=== PATIENT | male | born 1980 | race Caucasian/White ===

== ENCOUNTER 2021-09-26 10:16 | Outpatient (REF) | payer OTHER, SELFPAY ==
--- NOTE | ~2021-09-26 | XR_ITS ---
EXAMINATION: XR CHEST CLINICAL INFORMATION: Dyspnea COMPARISON: Previous chest x-rays most recent April 2020 TECHNIQUE: 2 views of the chest were obtained. FINDINGS: No significant abnormality is noted involving the heart, lungs, mediastinum, bony thorax or soft tissues. XR/XR chest 2V IMPRESSION: Unremarkable examination.
== END 2021-09-26 10:17 | disposition home or self-care (01) ==
LOC: HO.XRAY 10:16
PROVIDERS: Absent Provider Internal Medicine; PCP Internal Medicine; Visit Provider Emergency Medicine
DX: R06.00 Dyspnea, unspecified (principal)
CPT/HCPCS: 71046

== ENCOUNTER 2021-09-29 22:01 | Emergency (ER) | payer OTHER, SELFPAY ==
[2021-09-29 22:36] VITALS: BP 125/74; PULSE 66; RESP 16; TEMP 36.6; O2SAT 97; BMI 27.4
[2021-09-29 23:23] LABS: COVID-19 Test Negative (Negative)
--- NOTE | 2021-09-29 23:46 | ED.ANXIETY ---
HPI - Anxiety General Chief Complaint: Upper Respiratory Symptoms Stated Complaint: anxiety, trouble swallowing Time Seen by Provider: 09/29/21 23:40 Source: patient Mode of arrival: ambulatory Limitations: no limitations History of Present Illness HPI narrative: hx of anxiety sees a therapist and psychiatrist but will not take his sertraline has been having anxiety and it has gotten worse since he had COVID - has done really well with covid medically MD complaint: anxiety and heart racing Onset (ago): year(s) (chronic but worse over the past couple of weeks) Symptoms: dyspnea, palpitations and sense of impending doom Severity: moderate Quality: intermittent Place: home History of similar episodes: Yes Provoking factors: emotional stress Relieving factors: nothing Exacerbating factors: nothing Associated symptoms: shortness of breath Related Data Home Medications Medication Instructions Recorded Confirmed baclofen 10 mg tablet 10 mg PO TID 06/04/20 bupropion HCl 150 mg 24 hr tablet, 150 mg PO QAM 06/04/20 extended release cetirizine 10 mg tablet 10 mg PO DAILY 06/04/20 mirtazapine 15 mg tablet 15 mg PO DAILY 06/04/20 Previous Rx's Medication Instructions Recorded hydroxyzine HCl 25 mg tablet 25 mg PO TID PRN #30 tab 09/29/21 Allergies Allergy/AdvReac Type Severity Reaction Status Date / Time No Known Allergies Allergy Verified 09/29/21 22:34 shellfish Allergy Unknown rash Uncoded 09/29/21 22:35 Review of Systems Review of Systems: Constitutional : No Fever, No Chills ENT/Mouth : No Ear Pain, No Nasal Congestion, No sore throat Eyes: No Eye Pain, No Swelling, No Redness Cardiovascular : No Chest Pain, No SOB Respiratory : No Cough, No Sputum, pos Dyspnea Gastrointestinal : No Nausea, No Vomiting, No Diarrhea, No Hematochezia, No Melena Genitourinary : No Dysuria, No Urinary Frequency, No Hematuria Musculoskeletal : No Myalgias Skin : No Skin Lesions, No rash Neuro : No Weakness, No Numbness, No Paresthesias, No Dizziness, No Headache Psych : positive Anxiety, no Depression, no SI/HI Heme/Lymph: No Lymphadenopathy Endocrine : No Polyuria, No Polydipsia All other systems reviewed and are negative PMFSH Past Medical History Attestation statement: The following information was validated with the patient. Medical History Anxiety COVID-19 Surgical History (Updated 06/04/20 @ 15:36 by DANIEL Mayo) History of cornea transplant Family History Family History (Updated 06/04/20 @ 15:37 by DANIEL Mayo) Father No problems noted. Mother No problems noted. Paternal Aunt Lung cancer Social History Social History (Updated 09/29/21 @ 23:49 by Anca Vance DO) Patient Tobacco Use Status: Current everyday Tobacco user e-Cigarette/Vaping Use: Currently Using Advance Directives: No Advance Directives Information Provided: Yes Physical Exam Vital Signs: Vital Signs: Last Vital Signs Temp 97.8 F 09/29/21 22:36 Pulse 66 09/29/21 22:36 Resp 16 09/29/21 22:36 BP 125/74 09/29/21 22:36 Pulse Ox 97 09/29/21 22:36 BMI result Body Mass Index 27.4 Appearance: Alert. Oriented X3. No acute distress. Anxious Eyes: Pupils equal, round and reactive to light. ENT: Pharynx normal. Neck: Normal inspection. Neck supple. CVS: Normal heart rate and rhythm. Pulses normal. Respiratory: No respiratory distress. Breath sounds normal. Abdomen: Soft and non-tender. Skin: Skin warm and dry. Normal skin color. Normal skin turgor. Extremities: No lower extremity edema. No calf ttp Neuro: Oriented X 3. No motor deficit. No sensory deficit. MDM - Anxiety MDM Narrative Medical decision making narrative: 41 yo male here with hx of anxiety - not toxic, no SI, not compliant with medications refuses to take sertraline has been dealing with anxiety even before COVID but now since he has had COVID he feels more anxious - he has done well medically. Has a therapist and psychiatrist. Clear lungs, no hypoxia, no tachycardia. Stable VS - start on atarax and reassess. Lab Data Labs: Lab Results 09/29/21 Range/Units 22:45 COVID-19 ([facility]) Negative (Negative) COVID-19 Clin Com See Note Discharge Plan Discharge Clinical Impression: Anxiety Patient Disposition: Home, Self-Care Instructions: Anxiety (ED) Additional Instructions: return to ED for any worsening symptoms or concerns please follow up with your therapist Prescriptions: New hydroxyzine HCl 25 mg tablet 25 mg PO TID PRN (Reason: anxiety) Qty: 30 RF: 0 Stand Alone Forms: Work/School Release
[2021-09-30] MEDS: hydrOXYzine HCL 50 MG TABLET PO (00:24)
== END 2021-09-30 00:31 | disposition home or self-care (01) ==
PROVIDERS: Emergency Provider Emergency Medicine
DX: F41.9 Anxiety disorder, unspecified (principal); Z20.822 Contact with and (suspected) exposure to COVID-19
CPT/HCPCS: 87635; 99283

== ENCOUNTER 2021-10-23 09:57 | Outpatient (REF) | payer OTHER, SELFPAY ==
[2021-10-23 11:09] LABS: D Dimer High Sensitivity 183 NG/ML
[2021-10-23 11:32] LABS: Alanine Aminotransferase 43 U/L (0-40); Albumin Level 4.3 g/dL (3.5-5.0); Alkaline Phosphatase 77 U/L (39-117); Aspartate Amino Transferase 24 U/L (5-37); Bilirubin Direct 0.2 mg/dL (0.0-0.5); Bilirubin Total 0.6 mg/dL (0.0-1.0); Cholesterol 207 mg/dL; HDL Cholesterol 29 mg/dL; LDL Cholesterol Calculated 115 mg/dl; Total Protein 7.6 g/dL (6.5-8.0); Triglycerides 317 mg/dL
[2021-10-23 11:44] LABS: ~HepC Num1 0.12 S/CO (0.00-0.79); ~Hepatitis C Antibody Nonreactive (Nonreactive)
[2021-10-23 11:47] LABS: HBc Num1 0.05 S/CO (0.00-0.79); Hepatitis B Core Antibody Nonreactive (Nonreactive); ~Hepatitis B Surface Antibody NONREACTIVE (Nonreactive)
[2021-10-23 11:51] LABS: HBsAGNum1 0.29 S/CO (0.00-0.99); Hepatitis B Surface Antigen Negative (Negative)
[2021-10-23 11:54] LABS: TSH reflex Free T4 3.43 uIU/mL (0.32-4.0)
[2021-10-24 07:53] LABS: Hepatitis A Antibody IgG Nonreactive (Nonreactive); ~Hepatitis A Antibody IgG 0.51 S/CO (0.00-0.99)
== END 2021-10-23 09:58 | disposition home or self-care (01) ==
LOC: HO.LAB 09:57
PROVIDERS: PCP Internal Medicine; Visit Provider Internal Medicine
DX: E78.1 Pure hyperglyceridemia (principal); F33.9 Major depressive disorder, recurrent, unspecified; F41.9 Anxiety disorder, unspecified; R00.2 Palpitations; R06.00 Dyspnea, unspecified; R74.01 Elevation of levels of liver transaminase levels
CPT/HCPCS: 36415; 80061; 80076; 84443; 85379; 86704; 86706; 86708; 86803; 87340

== ENCOUNTER 2021-10-25 00:31 | Emergency (ER) | payer OTHER, SELFPAY ==
--- NOTE | ~2021-10-25 | XR_ITS ---
EXAMINATION: XR CHEST CLINICAL INFORMATION: Shortness of breath COMPARISON: 09/26/2021 TECHNIQUE: Frontal view of the chest was obtained. FINDINGS: No significant abnormality is noted involving the heart, lungs, mediastinum, bony thorax or soft tissues. XR/XR chest 1V IMPRESSION: Unremarkable examination.
[2021-10-25 00:35] VITALS: BP 126/72; PULSE 83; RESP 24; TEMP 36.8; O2SAT 98; BMI 26.3
[2021-10-25 01:02] VITALS: BP 112/70; PULSE 74; RESP 16; TEMP 36.8; O2SAT 97
[2021-10-25 01:39] VITALS: O2SAT 97
--- NOTE | 2021-10-25 02:44 | ED.ANXIETY ---
HPI - Anxiety General Chief Complaint: Upper Respiratory Symptoms Stated Complaint: SoB Time Seen by Provider: 10/25/21 00:43 Source: patient Mode of arrival: ambulatory History of Present Illness HPI narrative: 41-year-old male who presents with complaints having a persistent cough and feeling short of breath since he was diagnosed with COVID on 09/18. He denies any further fevers or chills. At this time patient denies any shortness of breath and is speaking in full sentences. Related Data Home Medications Medication Instructions Recorded Confirmed baclofen 10 mg tablet 10 mg PO TID 06/04/20 bupropion HCl 150 mg 24 hr tablet, 150 mg PO QAM 06/04/20 extended release cetirizine 10 mg tablet 10 mg PO DAILY 06/04/20 mirtazapine 15 mg tablet 15 mg PO DAILY 06/04/20 Previous Rx's Medication Instructions Recorded hydroxyzine HCl 25 mg tablet 25 mg PO TID PRN #30 tab 09/29/21 Allergies Allergy/AdvReac Type Severity Reaction Status Date / Time No Known Allergies Allergy Verified 09/29/21 22:34 shellfish Allergy Unknown rash Uncoded 09/29/21 22:35 Review of Systems Review of Systems: Pertinent positives and negatives as stated in HPI 10 point review of systems is otherwise negative. [facility] Past Medical History Source: nursing notes reviewed Medical History Anxiety COVID-19 Surgical History History of cornea transplant Family History Family History Father No problems noted. Mother No problems noted. Paternal Aunt Lung cancer Social History Social History Alcohol intake: never Patient Tobacco Use Status: Never used Tobacco e-Cigarette/Vaping Use: Currently Using Use of substances other than those prescribed or required for medical reasons: No Advance Directives: No Advance Directives Information Provided: Yes Physical Exam Vital Signs: Vital Signs: Last Vital Signs Temp 98.2 F 10/25/21 01:02 Pulse 67 10/25/21 02:55 Resp 14 10/25/21 02:55 BP 124/66 10/25/21 02:55 Pulse Ox 94 10/25/21 02:55 BMI result Body Mass Index 26.3 VITAL SIGNS: Reviewed. GENERAL: Well developed, well nourished, in no acute distress. HEAD: Normocephalic/atraumatic EYES: PERRLA, EOMI OROPHARYNX: no oral lesions noted, posterior pharynx clear LUNGS: Normal breath sounds, no tachypnea/wheeze/rhonchi/rales. SpO2<94> CARDIOVASCULAR: Regular rate and rhythm without noted murmurs ABDOMEN: Soft, non-tender, non-distended with bowel sounds. NEUROLOGIC: Alert and oriented x 4. Course Course Course Narrative: 41-year-old male with history and clinical presentation consistent with persistent post COVID symptoms. Patient had endorsed that he had attempted to use his spouse is albuterol inhaler without any improvement in his symptoms. Patient is otherwise PERC negative and on review of chest x-ray there are no acute findings. The patient was reassured, and otherwise discharged home in stable condition without tachypnea/tachycardia and oxygenating well on room air. Discharge Plan Discharge Clinical Impression: Anxiety Patient Disposition: Home, Self-Care Instructions: Anxiety (ED) Additional Instructions: 1. Recommend that she resume all home medications as prescribed. You're likely suffering from post COVID symptoms. 2. Follow-up with your primary care provider. Return to the ER for worsening symptoms. Prescriptions: No Action hydroxyzine HCl 25 mg tablet 25 mg PO TID PRN (Reason: anxiety) Qty: 30 0RF Interventions: ED Discharge Assessment Last Done: 10/25/21 02:54 Discharge Date/Time: 10/25/21 03:02
[2021-10-25 02:55] VITALS: BP 124/66; PULSE 67; RESP 14; O2SAT 94
== END 2021-10-25 03:02 | disposition home or self-care (01) ==
PROVIDERS: Emergency Provider Student in an Organized Health Care Education/Training Program
DX: F41.9 Anxiety disorder, unspecified (principal); R06.02 Shortness of breath; F17.290 Nicotine dependence, other tobacco product, uncomplicated; Z86.16 Personal history of COVID-19
CPT/HCPCS: 71045; 99283; 99285

== ENCOUNTER 2021-11-14 09:47 | Outpatient (REF) | payer OTHER, SELFPAY ==
--- NOTE | 2021-11-14 | PFT_ITS ---
Forced vital capacity 97%. FEV1 102%, FEV1/FVC ratio is 84, [id number] 113%, MVV 97%. Post bronchodilator therapy, no change noted. Total lung capacity 94%. Residual volume 82%. Diffusion capacity 83%. CONCLUSION: Normal pulmonary function test. No evidence of obstructive or restrictive pulmonary disorder. MD JILLIAN Alvarez/NIKKI / [id number]
== END 2021-11-14 09:48 | disposition home or self-care (01) ==
LOC: HO.RESP 09:47
PROVIDERS: PCP Internal Medicine; Visit Provider Internal Medicine
DX: R06.00 Dyspnea, unspecified (principal)
CPT/HCPCS: 94060; 94727; 94729

== ENCOUNTER 2021-11-18 17:25 | Emergency (ER) | payer OTHER, SELFPAY ==
[2021-11-18 18:07] VITALS: BP 108/60; PULSE 68; RESP 18; TEMP 36.6; O2SAT 98; BMI 26.2
[2021-11-18 18:36] LABS: IDNOW Serial# 08D9AD1C; Influenza A Negative (Negative); Influenza B2 Negative (Negative)
== END 2021-11-18 21:25 | disposition left against medical advice (07) ==
PROVIDERS: Emergency Provider Emergency Medicine; PCP Internal Medicine
DX: R42 Dizziness and giddiness (principal)
CPT/HCPCS: 87502; 99281; 99283

== ENCOUNTER → 2022-01-07 10:55 | Outpatient (BNVA) | payer OTHER, SELFPAY | PROVIDERS: PCP Internal Medicine; Referring Provider Internal Medicine; Visit Provider Internal Medicine | DX: R00.2 Palpitations (principal); R06.02 Shortness of breath; Z86.16 Personal history of COVID-19 | CPT/HCPCS: 93005; 99202 ==

== ENCOUNTER 2022-01-23 22:28 | Emergency (ER) | payer OTHER, SELFPAY ==
--- NOTE | ~2022-01-23 | XR_ITS ---
EXAMINATION: XR CHEST CLINICAL INFORMATION: Chest pain. COMPARISON: 10/25/2021 TECHNIQUE: Frontal view of the chest was obtained. FINDINGS: Lungs are clear. No consolidation, pneumothorax, or pleural effusion. Cardiac and mediastinal contours are normal. Pulmonary vasculature is unremarkable. No acute osseous findings. XR/XR chest 1V IMPRESSION: No acute radiographic findings in the chest.
--- NOTE | 2022-01-23 22:31 | ECG_ITS ---
Test Reason : PALPITATTIONS Blood Pressure : / mmHG Vent. Rate : 063 BPM Atrial Rate : 063 BPM P-R Int : 112 ms QRS Dur : 084 ms QT Int : 420 ms P-R-T Axes : 067 063 031 degrees QTc Int : 429 ms Normal sinus rhythm Normal ECG No significant changes when compared with the previous EKG of 29 apr 2020 Referred By: Generic ED Physician Electronically Signed By:MINI HERNANDEZ
[2022-01-23 22:42] VITALS: BP 134/72; PULSE 67; RESP 20; TEMP 37; O2SAT 98; BMI 26.6
[2022-01-23 23:02] LABS: MANUAL DIFF FLAG NO
[2022-01-23 23:04] LABS: Basophils Absolute Auto 0.1 X10*3/uL (0.0-0.2); Eosinophils Absolute Auto 0.1 X10*3/uL (0.0-0.4); Eosinophils Percent Auto 1.6 % (0-4); Hematocrit 40.5 % (42.0-52.0); Hemoglobin 13.9 g/dl (14.0-18.0); Imm Gran Abs Auto 0.02 X10*3/uL (0.00-0.03); Imm Gran Pct Auto 0.3 % (0.0-0.4); Lymphocytes Absolute Auto 2.2 X10*3/uL (1.2-4.9); Lymphocytes Percent Auto 38.1 % (20-40); Mean Corpuscular HGB Conc 34.3 g/dl (31.0-36.0); Mean Corpuscular Hemoglobin 28.8 pg (27.0-33.0); Mean Corpuscular Volume 83.9 fL (80.0-98.0); Mean Platelet Volume 9.6 fL (9.4-12.4); Monocytes Absolute Auto 0.5 X10*3/uL (0.1-1.2); Monocytes Percent Auto 8.6 % (2-11); Neutrophils Absolute Auto 2.9 x10*3/uL (2.0-8.3); Neutrophils Percent Auto 50.4 % (45-73); Platelet Count 238 X10*3/uL (160-400); Red Blood Count 4.83 X10*6/uL (4.60-5.80); White Blood Count 5.7 X10*3/uL (4.8-10.8)
[2022-01-23 23:19] LABS: Anion Gap 11 (12-20); Blood Urea Nitrogen 14 mg/dL (9-16); Calcium 9.4 mg/dL (8.4-10.2); Carbon Dioxide 29 mmol/L (22-29); Chloride 105 mmol/L (96-108); Creatinine Clr Calc Pharmacy 95.3; Estimated Glomerular Filt Rate > 60; Glucose Random 115 mg/dL (60-115); Potassium 4.3 mmol/L (3.3-5.1); Sodium 141 mmol/L (135-145)
[2022-01-23 23:26] LABS: Troponin-I High Sensitivity 6.3 ng/L (<3.5-35.0)
[2022-01-23 23:36] VITALS: BP 120/62; PULSE 59; RESP 11; TEMP 36.8; O2SAT 99
--- NOTE | 2022-01-23 23:59 | ED.ARRPALP ---
HPI - Arrhythmia/Palpitations General Chief Complaint: Dyspnea Stated Complaint: SOB, palpitations, dizzy Time Seen by Provider: 01/23/22 23:58 Source: patient and behavior specialist Mode of arrival: ambulatory Limitations: no limitations History of Present Illness HPI narrative: has had normal ECHO with cardiology for this plan for holter in February complaint: rapid heart beat and palpitations Onset (ago): month(s) (for months since COVID in the winter but started again tonight) Duration: intermittent Severity: moderate Context: occurred during rest (happens at night) Associated symptoms: shortness of breath and anxiety Treatments prior to arrival: other (sometimes takes clonazepam) Related Data Home Medications Medication Instructions Recorded Confirmed baclofen 10 mg tablet 10 mg PO TID 06/04/20 01/07/22 bupropion HCl 150 mg 24 hr tablet, 150 mg PO QAM 06/04/20 01/07/22 extended release cetirizine 10 mg tablet 10 mg PO DAILY 06/04/20 01/07/22 mirtazapine 30 mg tablet 30 mg PO BEDTIME 01/07/22 01/07/22 sertraline 100 mg tablet 100 mg PO DAILY 01/07/22 01/07/22 sertraline 50 mg tablet 50 mg PO DAILY 01/07/22 01/07/22 Previous Rx's Medication Instructions Recorded hydroxyzine HCl 25 mg tablet 25 mg PO TID PRN #30 tab 09/29/21 Allergies Allergy/AdvReac Type Severity Reaction Status Date / Time shellfish Allergy Unknown rash Uncoded 01/23/22 22:45 Review of Systems Review of Systems: Constitutional : No Weight loss, No Fever, No Chills ENT/Mouth : No sore throat, No Rhinorrhea Eyes: No Eye Pain, No Swelling Cardiovascular : no Chest Pain, pos SOB, no Dyspnea on Exertion, No Orthopnea, No Edema, pos Palpitations Respiratory : No Cough, No Sputum Gastrointestinal : pos Nausea, No Vomiting, No Diarrhea, No abdominal Pain, No Hematochezia, No Melena Genitourinary : No Dysuria, No Urinary Frequency Musculoskeletal : No joint pain, No Myalgias, No Joint Swelling Skin : No Skin Lesions, No rash Neuro : No Weakness, No Numbness, No Dizziness, No Headache Psych : pos Anxiety/Panic, No Depression Heme/Lymph: No Bruising, No Lymphadenopathy Endocrine : No Polyuria, No Polydipsia All other systems reviewed and are negative [facility] Past Medical History Attestation statement: The following information was validated with the patient. Medical History Anxiety COVID-19 Surgical History History of cornea transplant Family History Family History Father No problems noted. Mother No problems noted. Paternal Aunt Lung cancer Social History Social History Alcohol intake: never Patient Tobacco Use Status: Never used Tobacco e-Cigarette/Vaping Use: Currently Using Advance Directives: No Advance Directives Information Provided: No Physical Exam Vital Signs: Vital Signs: Last Vital Signs Temp 98.3 F 01/23/22 23:36 Pulse 64 01/24/22 00:42 Resp 12 01/24/22 00:42 BP 126/77 01/24/22 00:42 Pulse Ox 99 01/24/22 00:42 BMI result Body Mass Index 26.6 Appearance: Alert. Oriented X3. No acute distress. Eyes: Pupils equal, round and reactive to light. ENT: Pharynx normal. Neck: Normal inspection. Neck supple. CVS: Normal heart rate and rhythm. Pulses normal. Respiratory: No respiratory distress. Breath sounds normal. Abdomen: Soft and nontender. Skin: Skin warm and dry. Normal skin color. Normal skin turgor. Extremities: No lower extremity edema. No calf ttp Neuro: Oriented X 3. No motor deficit. No sensory deficit. Course Course Course Narrative: repeat trop flat stable for DC MDM - Arrhythmia/Palpitations MDM Narrative Medical decision making narrative: 41 yo male with hx of COVID back in the winter since then has anxiety and palpitations at night he has seen cardiology for this with normal ECHO he notes that he is planned for holter next month. He sometimes takes anxiolytic but then cannot take it due to having to care fo his child. At this time will obtain basic labs, repeat troponin, doubt PE given chronicity. Dispo per results and findings. Lab Data Result diagrams: 01/23/22 22:53 01/23/22 22:53 Labs: Lab Results 01/23/22 01/23/22 01/23/22 Range/Units 22:53 22:53 22:53 WBC 5.7 (4.8-10.8) X10*3/uL RBC 4.83 (4.60-5.80) X10*6/uL Hgb 13.9 L (14.0-18.0) g/dl Hct 40.5 L (42.0-52.0) % MCV 83.9 (80.0-98.0) fL MCH 28.8 (27.0-33.0) pg MCHC 34.3 (31.0-36.0) g/dl RDW 12.0 (11.0-16.0) % Plt Count 238 (160-400) X10*3/uL MPV 9.6 (9.4-12.4) fL Immature Gran % (Auto) 0.3 (0.0-0.4) % Neut % (Auto) 50.4 (45-73) % Lymph % (Auto) 38.1 (20-40) % [place] % (Auto) 8.6 (2-11) % Eos % (Auto) 1.6 (0-4) % Baso % (Auto) 1.0 (0-2) % Lymph # (Auto) 2.2 (1.2-4.9) X10*3/uL [place] # (Auto) 0.5 (0.1-1.2) X10*3/uL Eos # (Auto) 0.1 (0.0-0.4) X10*3/uL Baso # (Auto) 0.1 (0.0-0.2) X10*3/uL Abs Immat Gran (auto) 0.02 (0.00-0.03) X10*3/uL Absolute Neuts (auto) 2.9 (2.0-8.3) x10*3/uL Absolute Nucleated RBC 0.000 (0.0-0.012) X10*3/uL Nucleated RBC % (auto) 0.0 (0.0-0.2) /100WBC Sodium 141 (135-145) mmol/L Potassium 4.3 (3.3-5.1) mmol/L Chloride 105 (96-108) mmol/L Carbon Dioxide 29 (22-29) mmol/L Anion Gap 11 L (12-20) BUN 14 (9-16) mg/dL Creatinine 0.92 (0.5-1.4) mg/dL Estim Creat Clear Calc 95.3 Estimated GFR > 60 Random Glucose 115 (60-115) mg/dL Calcium 9.4 (8.4-10.2) mg/dL Troponin I High Sens 6.3 (<3.5-35.0) ng/L 01/24/22 Range/Units 00:41 WBC (4.8-10.8) X10*3/uL RBC (4.60-5.80) X10*6/uL Hgb (14.0-18.0) g/dl Hct (42.0-52.0) % MCV (80.0-98.0) fL MCH (27.0-33.0) pg MCHC (31.0-36.0) g/dl RDW (11.0-16.0) % Plt Count (160-400) X10*3/uL MPV (9.4-12.4) fL Immature Gran % (Auto) (0.0-0.4) % Neut % (Auto) (45-73) % Lymph % (Auto) (20-40) % [place] % (Auto) (2-11) % Eos % (Auto) (0-4) % Baso % (Auto) (0-2) % Lymph # (Auto) (1.2-4.9) X10*3/uL [place] # (Auto) (0.1-1.2) X10*3/uL Eos # (Auto) (0.0-0.4) X10*3/uL Baso # (Auto) (0.0-0.2) X10*3/uL Abs Immat Gran (auto) (0.00-0.03) X10*3/uL Absolute Neuts (auto) (2.0-8.3) x10*3/uL Absolute Nucleated RBC (0.0-0.012) X10*3/uL Nucleated RBC % (auto) (0.0-0.2) /100WBC Sodium (135-145) mmol/L Potassium (3.3-5.1) mmol/L Chloride (96-108) mmol/L Carbon Dioxide (22-29) mmol/L Anion Gap (12-20) BUN (9-16) mg/dL Creatinine (0.5-1.4) mg/dL Estim Creat Clear Calc Estimated GFR Random Glucose (60-115) mg/dL Calcium (8.4-10.2) mg/dL Troponin I High Sens 6.2 (<3.5-35.0) ng/L ECG Data Attestation: I personally reviewed and interpreted this ECG as follows: ECG interpretation date: 01/24/22 ECG interpretation time: 00:08 Interpretation: Rate: 63 Rhythm: NSR [place]: normal Normal P waves. Normal ZO. Normal QRS complex. ST T wave : no VERONICA, normal qTC: normal prior studies: no acute ischemia The study has been interpreted contemporaneously by me. Discharge Plan Discharge Clinical Impression: Heart palpitations Patient Disposition: Home, Self-Care Instructions: Heart Palpitations (ED) Additional Instructions: return to ED for any worsening symptoms or concerns por favor katiana un seguimiento con simpson cardi?logo. la prueba de hoy para simpson coraz?n fue normal Prescriptions: No Action hydroxyzine HCl 25 mg tablet 25 mg PO TID PRN (Reason: anxiety) Qty: 30 0RF cetirizine 10 mg tablet 10 mg PO DAILY 0RF bupropion HCl 150 mg tablet extended release 24 hr 150 mg PO QAM 0RF baclofen 10 mg tablet 10 mg PO TID 0RF sertraline 50 mg tablet 50 mg PO DAILY 0RF mirtazapine 30 mg tablet 30 mg PO BEDTIME 0RF sertraline 100 mg tablet 100 mg PO DAILY 0RF Stand Alone Forms: Work/School Release Print Language: Syriac
[2022-01-24 00:42] VITALS: BP 126/77; PULSE 64; RESP 12; O2SAT 99
[2022-01-24 01:09] LABS: Troponin-I High Sensitivity 6.2 ng/L (<3.5-35.0)
== END 2022-01-24 01:37 | disposition home or self-care (01) ==
PROVIDERS: Emergency Provider Emergency Medicine; PCP Internal Medicine
DX: R00.2 Palpitations (principal); F41.9 Anxiety disorder, unspecified
CPT/HCPCS: 36415; 71045; 80048; 84484; 85025; 93005; 99284

== ENCOUNTER → 2022-02-18 13:48 | Outpatient (REF) | payer OTHER, SELFPAY ==
--- NOTE | 2022-02-18 13:51 | CA_ITS ---
Transthoracic Echocardiogram Patient (Last, First, Middle): Cody Shepard, Gender: Male Date of : 1980 Age: 41 Procedure Date: 02/18/2022 Procedure Type: Transthoracic Echocardiogram Location: OP Height: 167.64 cm Weight: 74.84 kg BSA: 1.84 m2 Heart Rate: bpm BP: 135 / 80 mmHg [employer] Recruiter: TO Referring MD: Ike Amaya MD Office Assistant Receptionist: Yassine Beyer MD Symptoms: R06.02 - Shortness of breath Study Quality: Adequate ECG Rhythm: Sinus Conclusions: - Normal study Findings Left Ventricle Normal left ventricular size, thickness, and systolic function. The visually estimated ejection fraction is between 60-65%. Spectral Doppler is indicative of a normal filling pattern. Right Ventricle Normal right ventricular cavity size and systolic function. Atria Both atria are normal in size. There is no evidence of interatrial shunt. Aortic Valve Normal aortic valve structure and function. There is no aortic valve stenosis. There is no aortic valve regurgitation. Mitral Valve Normal mitral valve structure and function. There is trace mitral valve regurgitation. There is no mitral valve stenosis. Pulmonic Valve The pulmonic valve is likely normal. Tricuspid Valve Normal tricuspid valve structure. There is trace tricuspid valve regurgitation. The right ventricular systolic pressure is normal. The right ventricular systolic pressure is 21 mmHg. Normal right atrial pressure. There is no evidence of pulmonary hypertension. Great Vessels All visible segments of the aorta are normal in size. The visualized portions of the pulmonary artery and branches are normal. Venous The inferior vena cava is normal in size and collapses greater than 50% with inspiration. Pericardium/Pleural There is no evidence of pericardial effusion. Prior Study Comparison No prior study available for comparison. Measurements 2D Linear Measurements IVSd: 0.73 0.6-0.9/0.6-1.0 cm LVIDd: 4.74 3.9-5.3/4.2-5.9 cm LVIDd Index: 2.58 2.4-3.2/2.2-3.1 cm/m2 LVIDs: 2.96 2.0-3.6 cm LVPWd: 0.76 0.7-1.1 cm LA Diam: 3.70 2.7-3.8/3.0-4.0 cm LAIDs Index: 2.01 1.5-2.3 cm/m2 LV Mass: 140.72 67-162/88-224 g LV Mass Index: 76.48 43-95/49-115 g/m2 LVOT Diam: 2.00 3.0+(-)1.3 cm 2D Systolic Function EF 4C: 51.70 >55% EF 2C: 56.50 >55% EF BiP: 55.40 >55% Mitral Valve MV Pk E: 0.85 MV PK A: 0.75 MV Decel Time: 157.00 E/A: 1.10 E'Lateral: 12.20 E'Medial: 9.36 E/E' Med: 9.10 E/E' Lat: 7.00 PHT: 46.00 MVA PHT: 4.78 Decel [place]: 5.41 Aortic Valve AoV Pk Sandeep: 1.35 AoV Mn Sandeep: 0.89 AoV VTI: 0.29 AoV Pk Grad: 7.00 Aov Mn Grad: 4.00 LUCÍA Cont.VTI: 2.10 LVOT LVOT Pk Sandeep: 0.85 LVOT Mn Sandeep: 0.56 LVOT VTI: 0.20 LVOT Pk Grad: 3.00 LVOT Mn Grad: 2.00 LVOT Diam: 2.00 LVOT Area: 3.14 Diastolic Function MV Pk E: 0.85 MV Pk A: 0.75 E/A: 1.10 E'Medial: 9.36 E/E' Med: 9.10 E' Laterial: 12.20 E/E' Lat: 7.00 Right Ventricle TAPSE (mm): 24.00 TVS' Sandeep: 10.30 Tricuspid Valve TR Pk Sandeep: 2.12 TR Pk Grad: 18.00 RA Press: 3.00 RVSP: 21.00 Great Vessels Aorta Sinus of Valsalva: 3.03 2.0-3.[address] [place]: 2.05 1.7-3.4 cm Ao Asc: 2.70 2.1-3.4 cm Ao Arch: 2.80 Updated in Other Vendor System with Status of Final Yassine Beyer MD electronically signed on 02/18/2022 5:02:08 PM with status of Final
--- NOTE | 2022-02-18 13:51 | HM_ITS ---
Conclusion: 1. Patient was monitored for total period of 2 days and 9 hours 2. Baseline was normal sinus rhythm with average heart rate of 73 beats per minute 3. No significant pauses or bradycardia noted 4. Very rare ectopy noted 5. One 8 beat episode of SVT noted at 120 beats per minute 6. No patient reported events MTDD
== END ==
LOC: HO.CARD 13:48
PROVIDERS: PCP Internal Medicine; Visit Provider Internal Medicine
DX: R00.2 Palpitations (principal); R06.02 Shortness of breath
CPT/HCPCS: 93242; 93306

== ENCOUNTER 2022-02-19 02:32 | Emergency (ER) | payer OTHER, SELFPAY ==
[2022-02-19 02:42] VITALS: BP 156/87; PULSE 63; RESP 18; TEMP 36.6; O2SAT 98; BMI 26.6
[2022-02-19 02:58] LABS: Appearance Urine CLEAR; Color Urine YELLOW; Glucose Urine UA NEG (NEG); Leukocyte Esterase Urine NEG (NEG); Nitrite Urine NEG (NEG); Specific Gravity - Urine 1.015 (1.005-1.025); Urine Blood NEG (NEG); Urine Ketones NEG (NEG); Urine Protein NEG (NEG-TRACE)
[2022-02-19 03:05] LABS: RBC Urine 0-2 /HPF (0); Squamous Epithelial Cell Urine TRACE /LPF; WBC Urine 0-2 /HPF (0-4)
--- NOTE | 2022-02-19 04:35 | ED.GENADULT ---
HPI - General Adult General Chief complaint: General Medical Stated complaint: prostate inflammation, pain radiating to legs Time Seen by Provider: 02/19/22 04:22 Source: patient Mode of arrival: ambulatory Limitations: no limitations History of Present Illness HPI narrative: Patient comes emergency room complaining dysuria, no hematuria, unable to explain exactly what he feels, patient states that sometimes he feels shock-like sensations running down his lower extremities. He was recently treated for UTI/prostatitis. Patient denies fever chills, no flank pain, no abdominal pain. Patient states that the best he can describe the discomfort is like a UTI. Patient trying to describe that he feels the UTI like sensation radiating down his inner thigh down to his toes. Patient denies urinary/fecal incontinence/retention, Related Data Home Medications Medication Instructions Recorded Confirmed baclofen 10 mg tablet 10 mg PO TID 06/04/20 01/07/22 bupropion HCl 150 mg 24 hr tablet, 150 mg PO QAM 06/04/20 01/07/22 extended release cetirizine 10 mg tablet 10 mg PO DAILY 06/04/20 01/07/22 mirtazapine 30 mg tablet 30 mg PO BEDTIME 01/07/22 01/07/22 sertraline 100 mg tablet 100 mg PO DAILY 01/07/22 01/07/22 sertraline 50 mg tablet 50 mg PO DAILY 01/07/22 01/07/22 Previous Rx's Medication Instructions Recorded hydroxyzine HCl 25 mg tablet 25 mg PO TID PRN anxiety #30 tabs 09/29/21 phenazopyridine 100 mg tablet 100 mg PO BID 6 doses #6 tabs 02/19/22 Allergies Allergy/AdvReac Type Severity Reaction Status Date / Time shellfish Allergy Unknown rash Uncoded 02/19/22 02:41 Review of Systems Review of Systems: Constitutional : No Weight loss, No Fever, No Chills, No Night Sweats, No Fatigue, No Malaise ENT/Mouth : No Hearing loss, No Ear Pain, No Nasal Congestion, No Sinus Pain, No Hoarseness, No sore throat, No Rhinorrhea, No Swallowing Difficulty Eyes: No Eye Pain, No Swelling, No Redness, No Foreign Body, No Discharge, No Vision Changes Cardiovascular : No Chest Pain, No SOB, No Dyspnea on Exertion, No Orthopnea, No Edema, No Palpitations Respiratory : No Cough, No Sputum, No Wheezing, No Smoke Exposure, No Dyspnea Gastrointestinal : No Nausea, No Vomiting, No Diarrhea, No Constipation, No abdominal Pain, No Hematochezia, No Melena Genitourinary : no irregular bleeding, complaining of urinary discomfort, No Urinary Frequency, No Hematuria, No Urinary Incontinence, No Urgency, No Flank Pain, No Urinary Flow Changes, No Hesitancy, no testicular pain Musculoskeletal : No joint pain, No Myalgias, No Joint Swelling, occasional shock-like sensations running down both lower extremities Skin : No Skin Lesions, No rash Neuro : No Weakness, No Numbness, No Paresthesias, No Loss of Consciousness, No Dizziness, No Headache Psych : No Anxiety/Panic, No Depression, No SI/HI/AH/VH, No Social Issues, Heme/Lymph: No Bruising, No Bleeding,No Lymphadenopathy Endocrine : No Polyuria, No Polydipsia, No Temperature Intolerance PMFSH Past Medical History Medical History Anxiety Surgical History History of cornea transplant Family History Family History Father No problems noted. Mother No problems noted. Paternal Aunt Lung cancer Social History Social History Alcohol intake: never Patient Tobacco Use Status: Never used Tobacco e-Cigarette/Vaping Use: Currently Using Use of substances other than those prescribed or required for medical reasons: No Advance Directives: No Advance Directives Information Provided: Yes Physical Exam ED Vital Signs: Vital Signs - 24 hr 02/19/22 02:42 Temperature 97.8 F Pulse Rate 63 Respiratory Rate 18 Blood Pressure 156/87 H Pulse Oximetry 98 Oxygen Delivery Method Room Air BMI result Body Mass Index 26.6 Const Other: Appearance: Alert. Oriented X3. No acute distress. Eyes: Pupils equal, round and reactive to light. ENT: Pharynx normal. Neck: Normal inspection. Neck supple. No lymph nodes noted. No crepitus CVS: Normal heart rate and rhythm. Pulses normal. Normal S1 and S2 Respiratory: No respiratory distress. Breath sounds normal. No Wheezing. No rales Abdomen: Soft and nontender. No rigidity. No distention. : Normal male genitalia, uncircumcised, no rash, no testicular pain, no penile discharge. No saddle anesthesia. Skin: Skin warm and dry. Normal skin color. Normal skin turgor. Extremities: No lower extremity edema. No Lacerations. No Rash, negative straight leg raise test bilaterally Neuro: Oriented X 3. No motor deficit. No sensory deficit. Moving all extremities. No slurred speech. CN 2 through 12 grossly intact Psych: calm, cooperative, normal affect Course Course Course Narrative: I think there to different things going on. One of them is cystitis, urinalysis negative for UTI. Patient will be given phenazopyridine for symptomatic relief. Patient instructed to follow-up with his PCP, may need referral to urology if this does not resolve the issue. The 2nd issue is possible sciatica. Patient did have a negative straight leg raise test bilaterally. Patient instructed to follow-up with his primary care physician. Overall, I believe patient has anxiety issues. Medical Decision Making Lab Data Labs: Lab Results 02/19/22 Range/Units 02:53 Urine Color YELLOW Urine Appearance CLEAR Urine pH 6.0 (5.0-8.0) Ur Specific [place] 1.015 (1.005-1.025) Urine Protein NEG (NEG-TRACE) MG/DL Urine Glucose (UA) NEG (NEG) MG/DL Urine Ketones NEG (NEG) MG/DL Urine Blood NEG (NEG) Urine Nitrite NEG (NEG) Ur Leukocyte Esterase NEG (NEG) Urine RBC 0-2 (0) /HPF Urine WBC 0-2 (0-4) /HPF Ur Squamous Epith Cells TRACE /LPF Urine Bacteria NONE /LPF Discharge Plan Discharge Clinical Impression: Cystitis Patient Disposition: Home, Self-Care Instructions: Interstitial Cystitis (ED) Additional Instructions: Please follow-up with your primary care physician tomorrow. If you have any worsening or new symptoms, please return to the emergency room or call 911 Prescriptions: New phenazopyridine 100 mg tablet 100 mg PO BID Qty: 6 0RF No Action hydroxyzine HCl 25 mg tablet 25 mg PO TID PRN (Reason: anxiety) Qty: 30 0RF cetirizine 10 mg tablet 10 mg PO DAILY bupropion HCl 150 mg tablet extended release 24 hr 150 mg PO QAM baclofen 10 mg tablet 10 mg PO TID sertraline 50 mg tablet 50 mg PO DAILY mirtazapine 30 mg tablet 30 mg PO BEDTIME sertraline 100 mg tablet 100 mg PO DAILY
== END 2022-02-19 05:06 | disposition home or self-care (01) ==
PROVIDERS: Emergency Provider Emergency Medicine; PCP Internal Medicine
DX: N30.90 Cystitis, unspecified without hematuria (principal); F41.9 Anxiety disorder, unspecified; Z79.899 Other long term (current) drug therapy
CPT/HCPCS: 81001; 99283; 99284

== ENCOUNTER 2022-02-20 14:27 | Emergency (ER) | payer OTHER, SELFPAY ==
--- NOTE | 2022-02-20 14:30 | ECG_ITS ---
Test Reason : cp Blood Pressure : / mmHG Vent. Rate : 075 BPM Atrial Rate : 075 BPM P-R Int : 126 ms QRS Dur : 088 ms QT Int : 378 ms P-R-T Axes : 070 051 038 degrees QTc Int : 422 ms Normal sinus rhythm Normal ECG When compared with ECG of 23-JAN-2022 22:51, No significant change was found Referred By: Generic ED Physician Electronically Signed By:Aries Johnson
[2022-02-20 14:37] VITALS: BP 126/78; PULSE 84; RESP 16; TEMP 36.8; O2SAT 98; BMI 26.6
--- NOTE | 2022-02-20 15:25 | ED_ITS ---
HPI - General Adult General Chief complaint: Abdominal Pain Stated complaint: pain in private area/chest pains Time Seen by Provider: 02/20/22 14:59 Source: patient Limitations: no limitations History of Present Illness HPI narrative: This is a 41-year-old male who complains of discomfort in his genital area radiating down to his upper thighs and to his rectal area. This has been present for about 4 days, though the patient notes that he was treated by his primary care physician for prostatitis about 3 weeks ago with antibiotics for 10 days. The patient was seen here yesterday and had a negative urinalysis, was thought to have nonspecific cystitis, was noted to have a normal exam. Patient denies any fever. He does note he has palpitations at times. He denies any chest pain or shortness of breath. He denies abdominal pain. He denies any dysuria or urinary frequency. Denies any penile discharge. He denies any testicular swelling but does have pain in the shaft of his penis and in his inguinal area bilaterally. He denies however that when he palpates these areas that they are tender. Denies pain upon bearing down. He denies any pain with ejaculation but states he has not had any recent ejaculations because his works at night. The patient does have a history of anxiety Related Data Home Medications Medication Instructions Recorded Confirmed baclofen 10 mg tablet 10 mg PO TID 06/04/20 01/07/22 bupropion HCl 150 mg 24 hr tablet, 150 mg PO QAM 06/04/20 01/07/22 extended release cetirizine 10 mg tablet 10 mg PO DAILY 06/04/20 01/07/22 mirtazapine 30 mg tablet 30 mg PO BEDTIME 01/07/22 01/07/22 sertraline 100 mg tablet 100 mg PO DAILY 01/07/22 01/07/22 sertraline 50 mg tablet 50 mg PO DAILY 01/07/22 01/07/22 Previous Rx's Medication Instructions Recorded hydroxyzine HCl 25 mg tablet 25 mg PO TID PRN anxiety #30 tabs 09/29/21 phenazopyridine 100 mg tablet 100 mg PO BID 6 doses #6 tabs 02/19/22 hydroxyzine HCl 25 mg tablet 25 mg PO BID PRN anxiety #30 tabs 02/20/22 Allergies Allergy/AdvReac Type Severity Reaction Status Date / Time shellfish Allergy Unknown rash Uncoded 02/19/22 02:41 Review of Systems Review of Systems: Yes all other systems are reviewed and are negative Constitutional: Constitutional: Reports as per HPI and Denies fever(s) Eyes: Eyes: Reports as per HPI and Reports no additional eye complaints ENT: Reports system reviewed and no additional complaints, except as documented, Reports as per HPI, Denies nasal congestion, Denies nasal discharge and Denies sore throat Cardiovascular: Cardiovascular: Reports as per HPI, Denies chest pain, Denies dyspnea and Reports other (Palpitations) Respiratory: Respiratory: Reports as per HPI, Denies cough and Denies dyspnea Gastrointestinal: Gastrointestinal: Reports as per HPI, Denies abdominal pain, Denies diarrhea and Denies vomiting Genitourinary: Genitourinary: Reports as per HPI, Denies hematuria, Denies dysuria, Denies painful ejaculations, Denies penile discharge, Denies scrotal swelling, Denies testicular mass and Denies urinary frequency Musculoskeletal: Musculoskeletal: Reports no additional musculoskeletal complaints and Denies numbness Integumentary/Breasts: Skin/Breast: Reports as per HPI and Denies rash Neurologic: Reports as per HPI, Denies focal weakness and Denies numbness Psychiatric: Psychiatric: Reports no additional psychiatric complaints and Reports as per HPI Endocrine: Endocrine: Reports no additional endocrine complaints and Reports as per HPI Hematologic/Lymphatic: Hematologic/Lymphatic: Reports no additional hematologic/lymphatic complaints, Reports as per HPI and Reports other (No peripheral edema) [facility] Past Medical History Medical History Anxiety Surgical History History of cornea transplant Family History Family History Father No problems noted. Mother No problems noted. Paternal Aunt Lung cancer Social History Social History Alcohol intake: never Patient Tobacco Use Status: Never used Tobacco e-Cigarette/Vaping Use: Currently Using Advance Directives: No Advance Directives Information Provided: No Physical Exam ED Vital Signs: Vital Signs - 24 hr 02/20/22 14:37 02/20/22 16:16 Temperature 98.3 F 98.4 F Pulse Rate 84 62 Respiratory Rate 16 20 Blood Pressure 126/78 116/80 Pulse Oximetry 98 96 Oxygen Delivery Method Room Air Room Air BMI result Body Mass Index 26.6 Const Other: Patient appears anxious, keeps on grabbing his scrotum and lifting it and palpating his penis to demonstrate that there are not tender, readily stands up and sits down repeatedly. No objective evidence of any pathology on exam General: no acute distress Orientation/consciousness: patient oriented x3 HENMT Head: Yes normal to inspection General nose exam: Normal external nose present Mouth: moist mucous membranes Throat: Yes posterior oropharynx normal, Yes tonsils normal and Yes uvula midline Eyes Eyelids: Yes eyelids normal Conjunctivae: conjunctivae normal Pupils: Equal, round and reactive pupils present Neck Neck: Yes supple Resp Effort & Inspection: normal respiratory effort Auscultation: clear to auscultation bilaterally Cardio Rate: regular rate Rhythm: regular rhythm Heart sounds: S1 normal heart sound present, S2 normal heart sound present, no gallops, no murmurs and no rubs GI Inspection: No distended Palpation (GI): Soft to palpation and nontender Auscultation: normal bowel sounds Male General Exam: Yes normal external exam, No hernia, No inguinal lymphadenopathy, No Genital lesions present, No perineal induration and No tenderness Penis: normal penis, uncircumcised and No Genital lesions present Scrotum: scrotum normal, testes descended bilaterally, no inguinal hernias, no masses and no scrotal swelling Testes: Testes normal Skin General skin exam: other (Warm and dry) Neuro General: patient oriented x3 and CN's II-XI intact bilaterally Cranial nerves: Yes Equal, round and reactive pupils present Extrem General: Yes no pedal edema Psych Affect: normal affect Attitude: cooperative Medical Decision Making [facility] Narrative Medical decision making narrative: Patient with multiple complaints and preoccupations, appears anxious. Patient was seen here yesterday for similar complaints had a negative urinalysis. Patient has no objective findings on physical examination or on laboratory examination of any concerning pathology. Patient complains of palpitations, also feels like he cannot catch his breath, does have a history of anxiety and is on medicines for anxiety. Patient notes prior to discharge that he is also using cream for hemorrhoids and wants to know if this might be causing his pain. Patient notes he seems to have some pain when squeezing his penis just proximal to the glans. This patient appears to have psychogenic complaints. Will refer to Urology for re-evaluation, but I suspect that the patient has complaints are anxiety related. Patient states he is already on tramadol for his back and the ibuprofen does not work, requested something stronger for pain. Given the lack of any objective findings, I do not believe stronger pain medicine is warranted. Lab Data Lab results reviewed: Yes I reviewed the patient's lab results. Result diagrams: 02/20/22 16:15 02/20/22 16:15 Labs: Lab Results 02/20/22 02/20/22 Range/Units 16:15 16:15 WBC 7.0 (4.8-10.8) X10*3/uL RBC 4.87 (4.60-5.80) X10*6/uL Hgb 14.1 (14.0-18.0) g/dl Hct 41.1 L (42.0-52.0) % MCV 84.4 (80.0-98.0) fL MCH 29.0 (27.0-33.0) pg MCHC 34.3 (31.0-36.0) g/dl RDW 12.2 (11.0-16.0) % Plt Count 255 (160-400) X10*3/uL MPV 9.4 (9.4-12.4) fL Immature Gran % (Auto) 0.1 (0.0-0.4) % Neut % (Auto) 64.3 (45-73) % Lymph % (Auto) 29.1 (20-40) % Yancey % (Auto) 4.8 (2-11) % Eos % (Auto) 1.1 (0-4) % Baso % (Auto) 0.6 (0-2) % Lymph # (Auto) 2.0 (1.2-4.9) X10*3/uL [place]y # (Auto) 0.3 (0.1-1.2) X10*3/uL Eos # (Auto) 0.1 (0.0-0.4) X10*3/uL Baso # (Auto) 0.0 (0.0-0.2) X10*3/uL Abs Immat Gran (auto) 0.01 (0.00-0.03) X10*3/uL Absolute Neuts (auto) 4.5 (2.0-8.3) x10*3/uL Absolute Nucleated RBC 0.000 (0.0-0.012) X10*3/uL Nucleated RBC % (auto) 0.0 (0.0-0.2) /100WBC Sodium 141 (135-145) mmol/L Potassium 4.4 (3.3-5.1) mmol/L Chloride 104 (96-108) mmol/L Carbon Dioxide 30 H (22-29) mmol/L Anion Gap 11 L (12-20) BUN 8 L (9-16) mg/dL Creatinine 0.91 (0.5-1.4) mg/dL Estim Creat Clear Calc 96.4 Estimated GFR > 60 Random Glucose 97 (60-115) mg/dL Calcium 9.4 (8.4-10.2) mg/dL Total Bilirubin 0.7 (0.0-1.0) mg/dL AST 26 (5-37) U/L ALT 53 H (0-40) U/L Alkaline Phosphatase 65 (39-117) U/L Total Protein 7.7 (6.5-8.0) g/dL Albumin 4.4 (3.5-5.0) g/dL ECG Data Attestation: I personally reviewed and interpreted this ECG as follows: Interpretation: Sinus rhythm with a rate of 75. No ST elevation or depression. Normal QRS axis. No ectopy. Discharge Plan Discharge Clinical Impression: Heart palpitations, Anxiety, Pain of male genitalia Patient Disposition: Home, Self-Care Instructions: Anxiety (ED) Additional Instructions: Follow-up with Urology as referred. Try using hydroxyzine to see if that helps with anxiety symptoms. Continue other current medication. Use acetaminophen and ibuprofen for pain. Your physical exam, labs, urinalysis are normal and do not point to any concerning findings. Prescriptions: New hydroxyzine HCl 25 mg tablet 25 mg PO BID PRN (Reason: anxiety) Qty: 30 0RF No Action hydroxyzine HCl 25 mg tablet 25 mg PO TID PRN (Reason: anxiety) Qty: 30 0RF phenazopyridine 100 mg tablet 100 mg PO BID Qty: 6 0RF cetirizine 10 mg tablet 10 mg PO DAILY bupropion HCl 150 mg tablet extended release 24 hr 150 mg PO QAM baclofen 10 mg tablet 10 mg PO TID sertraline 50 mg tablet 50 mg PO DAILY mirtazapine 30 mg tablet 30 mg PO BEDTIME sertraline 100 mg tablet 100 mg PO DAILY Referrals: Jose Parsons MD [Physician] - 5 days
[2022-02-20 16:16] VITALS: BP 116/80; PULSE 62; RESP 20; TEMP 36.9; O2SAT 96
[2022-02-20 16:29] LABS: MANUAL DIFF FLAG NO
[2022-02-20 16:32] LABS: Basophils Percent Auto 0.6 % (0-2); Eosinophils Absolute Auto 0.1 X10*3/uL (0.0-0.4); Eosinophils Percent Auto 1.1 % (0-4); Hematocrit 41.1 % (42.0-52.0); Hemoglobin 14.1 g/dl (14.0-18.0); Imm Gran Abs Auto 0.01 X10*3/uL (0.00-0.03); Imm Gran Pct Auto 0.1 % (0.0-0.4); Lymphocytes Percent Auto 29.1 % (20-40); Mean Corpuscular HGB Conc 34.3 g/dl (31.0-36.0); Mean Corpuscular Volume 84.4 fL (80.0-98.0); Mean Platelet Volume 9.4 fL (9.4-12.4); Monocytes Absolute Auto 0.3 X10*3/uL (0.1-1.2); Monocytes Percent Auto 4.8 % (2-11); Neutrophils Absolute Auto 4.5 x10*3/uL (2.0-8.3); Neutrophils Percent Auto 64.3 % (45-73); Platelet Count 255 X10*3/uL (160-400); Red Blood Count 4.87 X10*6/uL (4.60-5.80); Red Cell Distribution Width 12.2 % (11.0-16.0)
[2022-02-20 16:45] LABS: Alanine Aminotransferase 53 U/L (0-40); Albumin Level 4.4 g/dL (3.5-5.0); Alkaline Phosphatase 65 U/L (39-117); Anion Gap 11 (12-20); Aspartate Amino Transferase 26 U/L (5-37); Bilirubin Total 0.7 mg/dL (0.0-1.0); Blood Urea Nitrogen 8 mg/dL (9-16); Calcium 9.4 mg/dL (8.4-10.2); Carbon Dioxide 30 mmol/L (22-29); Chloride 104 mmol/L (96-108); Creatinine Clr Calc Pharmacy 96.4; Estimated Glomerular Filt Rate > 60; Glucose Random 97 mg/dL (60-115); Potassium 4.4 mmol/L (3.3-5.1); Sodium 141 mmol/L (135-145); Total Protein 7.7 g/dL (6.5-8.0)
== END 2022-02-20 17:21 | disposition home or self-care (01) ==
PROVIDERS: Emergency Provider Emergency Medicine; PCP Internal Medicine
DX: N48.89 Other specified disorders of penis (principal); R00.2 Palpitations; F41.9 Anxiety disorder, unspecified
CPT/HCPCS: 36415; 80053; 85025; 93005; 99283

== ENCOUNTER 2022-04-01 00:05 | Emergency (ER) | payer OTHER, SELFPAY ==
--- NOTE | ~2022-04-01 | XR_ITS ---
EXAMINATION: XR hand wrist RT CLINICAL INFORMATION: Reason for Exam pain/swelling s/p trauma COMPARISON: None. TECHNIQUE: PA, oblique and lateral views FINDINGS: No acute fracture or dislocation. Joint spaces and articular surfaces are maintained. Soft tissue swelling dorsal to the hand. No radiopaque foreign bodies. XR/XR hand wrist RT IMPRESSION: No acute fracture or dislocation.
[2022-04-01 00:53] VITALS: BP 126/78; PULSE 70; TEMP 36.9; O2SAT 97; BMI 26.6
== END 2022-04-01 03:52 | disposition left against medical advice (07) ==
PROVIDERS: Emergency Provider Emergency Medicine; PCP Internal Medicine
DX: S69.91XA Unspecified injury of right wrist, hand and finger(s), initial encounter (principal); W22.8XXA Striking against or struck by other objects, initial encounter; Y93.9 Activity, unspecified; Y92.9 Unspecified place or not applicable; Y99.9 Unspecified external cause status
CPT/HCPCS: 73110; 73130; 99281; 99283

== ENCOUNTER 2022-04-06 08:43 | Emergency (ER) | payer OTHER, SELFPAY ==
--- NOTE | ~2022-04-06 | CT_ITS ---
EXAMINATION: CT ANGIOGRAM OF THE CHEST WITH AND WITHOUT CONTRAST (CT PULMONARY ANGIOGRAM FOR PE) CLINICAL INFORMATION: Reason for Exam SOB, elevated DDIMER, hx COVID COMPARISON: Previous chest x-rays most recent from earlier the same day TECHNIQUE: Prior to contrast administration, noncontrast localization images were obtained. Subsequently, multidetector volumetric imaging was performed from the thoracic inlet to below the diaphragms following the administration of 65 mL Omnipaque 350 intravenous contrast. No contrast reaction reported Sagittal, coronal, and MIP oblique sagittal reformatted images were obtained on the CT workstation, uploaded to PACS, and reviewed. This CT examination was performed using dose optimization techniques as appropriate, variously including the following: *Automated exposure control *Adjustment of mA and/or kV according to patient size (this includes techniques or standardized protocols for targeted exams where dose is matched to indication/reason for exam; i.e. extremities or head) *Use of iterative reconstruction technique Total exam dose-length product 268 mGy-cm FINDINGS: QUALITY OF STUDY/CONTRAST BOLUS: Satisfactory. PULMONARY ARTERIES: No central or segmental pulmonary emboli. THORACIC AORTA: No aneurysm or dissection. LUNG: No focal consolidation, nodules or masses. PLEURA: No pleural effusion or pneumothorax. MEDIASTINUM: Normal heart size. No pericardial effusion. Small mediastinal and bilateral hilar lymph nodes. Small calcified subcarinal and right hilar nodes. No evidence of septal bowing or right heart strain. CHEST WALL/AXILLA: No axillary or internal mammary lymphadenopathy. OSSEOUS STRUCTURES: No acute or suspicious osseous abnormality. UPPER ABDOMEN: Unremarkable. No reflux of contrast into the hepatic veins to suggest elevated right heart pressures. CT/CT angio chest PE protocol IMPRESSION: No evidence of pulmonary embolism. VTE: negative
--- NOTE | ~2022-04-06 | XR_ITS ---
EXAMINATION: XR CHEST CLINICAL INFORMATION: Chest tightness. COMPARISON: 01/23/2022 chest radiograph. TECHNIQUE: Frontal view of the chest was obtained. FINDINGS: No significant abnormality is noted involving the heart, lungs, mediastinum, bony thorax or soft tissues. XR/XR chest 1V IMPRESSION: No acute cardiopulmonary process.
--- NOTE | 2022-04-06 08:59 | ECG_ITS ---
Test Reason : chest tightness Blood Pressure : / mmHG Vent. Rate : 054 BPM Atrial Rate : 054 BPM P-R Int : 134 ms QRS Dur : 086 ms QT Int : 406 ms P-R-T Axes : 050 049 026 degrees QTc Int : 385 ms Sinus bradycardia Otherwise normal ECG When compared with ECG of 20-FEB-2022 14:28, No significant change was found Referred By: Luly Sousa Electronically Signed By:BRE RUTH MD
[2022-04-06 09:17] VITALS: BP 131/77; PULSE 54; RESP 14; TEMP 36.6; O2SAT 95; BMI 26.6
[2022-04-06 09:40] LABS: COVID-19 Test Negative (Negative); IDNOW Serial# 16C4AD1C
--- NOTE | 2022-04-06 09:40 | ED_ITS ---
HPI - SOB/Dyspnea General Chief Complaint: Dyspnea Stated Complaint: tight chest, sob Time Seen by Provider: 04/06/22 08:59 Source: patient Mode of arrival: ambulatory Limitations: no limitations History of Present Illness HPI Narrative: 41-year-old male with history of opiate use disorder on Suboxone, anxiety, h istory of COVID-19 in September who presents to the ER with ongoing shortness of breath and intermittent dizziness since he had COVID 8 months ago. he reports he has been seen by many doctors, seen here in the emergency department, had many tests done that all are normal. He reports his shortness of breath occurs mostly when he lays down and tries to sleep. He feels like he cannot catch his breath or take a deep breath. He feels like the air is not getting into his lungs. In attempts to improve his symptoms he stop vaping. He denies any smoking history, does not smoke marijuana. He denies being anxious and feels like something is wrong with his lungs. He does not have any chest pain. He denies any dyspnea on exertion. He states when he lays down his symptoms are much worse. MD elicited complaint: shortness of breath Onset (ago): month(s) (8) Timing: intermittent Severity: moderate Exacerbating factors: lying flat Relieving factors: nothing Associated symptoms: dizziness Treatment prior to arrival: none Related Data Home oxygen amount: none Home Medications Medication Instructions Recorded Confirmed baclofen 10 mg tablet 10 mg PO TID 06/04/20 01/07/22 bupropion HCl 150 mg 24 hr tablet, 150 mg PO QAM 06/04/20 01/07/22 extended release cetirizine 10 mg tablet 10 mg PO DAILY 06/04/20 01/07/22 mirtazapine 30 mg tablet 30 mg PO BEDTIME 01/07/22 01/07/22 sertraline 100 mg tablet 100 mg PO DAILY 01/07/22 01/07/22 sertraline 50 mg tablet 50 mg PO DAILY 01/07/22 01/07/22 Previous Rx's Medication Instructions Recorded hydroxyzine HCl 25 mg tablet 25 mg PO TID PRN anxiety #30 tabs 09/29/21 phenazopyridine 100 mg tablet 100 mg PO BID 6 doses #6 tabs 02/19/22 hydroxyzine HCl 25 mg tablet 25 mg PO BID PRN anxiety #30 tabs 02/20/22 hydroxyzine HCl 50 mg tablet 50 mg PO BEDTIME #14 tabs 04/06/22 Allergies Allergy/AdvReac Type Severity Reaction Status Date / Time shellfish Allergy Unknown rash Uncoded 04/01/22 02:10 Review of Systems Review of Systems: Constitutional: No Fever, No Chills ENT/Mouth: No sore throat, No Rhinorrhea, No Swallowing Difficulty Eyes: No Eye Pain, No Swelling, No Redness Cardiovascular: No Chest Pain, + SOB, No Orthopnea, No Edema Respiratory: No Cough, No Sputum, No Wheezing, No dyspnea Gastrointestinal: No Nausea, No Vomiting, No Diarrhea, No abdominal Pain, No Hematochezia, No Melena Genitourinary: No Dysuria, No Urinary Frequency, No Hematuria Musculoskeletal: No joint pain, No Myalgias Skin: No Skin Lesions, No rash Neuro: No Weakness, No Numbness, + Dizziness, No Headache Psych: No Anxiety/Panic, No Depression Heme/Lymph: No Bruising, No Lymphadenopathy Endocrine: No Polyuria, No Polydipsia [facility] Past Medical History Medical History Anxiety Surgical History History of cornea transplant Family History Family History Father No problems noted. Mother No problems noted. Paternal Aunt Lung cancer Social History Social History Alcohol intake: never Patient Tobacco Use Status: Never used Tobacco e-Cigarette/Vaping Use: Currently Using Use of substances other than those prescribed or required for medical reasons: No Advance Directives: No Advance Directives Information Provided: No Physical Exam Vital Signs: Vital Signs: Last Vital Signs Temp 97.6 F 04/06/22 10:14 Pulse 56 04/06/22 12:17 Resp 16 04/06/22 12:17 BP 125/74 04/06/22 12:17 Pulse Ox 100 04/06/22 12:17 O2 Del Method 04/06/22 12:17 BMI result Body Mass Index 26.6 Appearance: Alert. Oriented X3. No acute distress. Eyes: Pupils equal, round and reactive to light. ENT: Pharynx normal. Neck: Normal inspection. Neck supple. CVS: Normal heart rate and rhythm. Pulses normal. Respiratory: No respiratory distress. Breath sounds normal. Abdomen: Soft and nontender. +BS x4 Skin: Skin warm and dry. Normal skin color. Normal skin turgor. No rashes. Extremities: No lower extremity edema. No calf tenderness Neuro: Oriented X 3. No motor deficit. No sensory deficit. Course Course Course Narrative: 41 yo male with history of COVID-19 in September 2021, opiate use disorder on low dose Suboxone, anxiety (prior noncompliance with meds per documentation, patient declines history of anxiety), who presents with chronic SOB, worse at night since he had COVID. SpO2 100%. Lungs are clear. CXR is normal. We discussed these findings. He is frustrated no one is finding anything wrong. He is afraid he might have a lung cancer or a blood clot. Will check DDIMER, clinical suspicion for PE is low. PERC negative. Reevaluation(s) Reevaluation #1: D-dimer 311. Will get CT angio to rule out pulmonary embolism. Reevaluation #2: CT of the chest showed no PE, no pulmonary abnormality. Will give trial of angiolytic q.h.s. and have him follow-up with Pulmonary for further evaluation and his primary care doctor as well. He is stable for discharge home. MDM - SOB/Dyspnea Medical Records Attestation: I reviewed the patient's medical records. Lab Data Attestation: I reviewed the patient's lab results. Result diagrams: 04/06/22 10:31 04/06/22 10:31 Labs: Lab Results 04/06/22 04/06/22 04/06/22 Range/Units 09:14 09:41 10:31 WBC 6.4 (4.8-10.8) X10*3/uL RBC 4.89 (4.60-5.80) X10*6/uL Hgb 14.3 (14.0-18.0) g/dl Hct 42.6 (42.0-52.0) % MCV 87.1 (80.0-98.0) fL MCH 29.2 (27.0-33.0) pg MCHC 33.6 (31.0-36.0) g/dl RDW 11.9 (11.0-16.0) % Plt Count 211 (160-400) X10*3/uL MPV 9.6 (9.4-12.4) fL Immature Gran % (Auto) 0.2 (0.0-0.4) % Neut % (Auto) 59.5 (45-73) % Lymph % (Auto) 29.8 (20-40) % [place] % (Auto) 7.1 (2-11) % Eos % (Auto) 2.5 (0-4) % Baso % (Auto) 0.9 (0-2) % Lymph # (Auto) 1.9 (1.2-4.9) X10*3/uL [place] # (Auto) 0.5 (0.1-1.2) X10*3/uL Eos # (Auto) 0.2 (0.0-0.4) X10*3/uL Baso # (Auto) 0.1 (0.0-0.2) X10*3/uL Abs Immat Gran (auto) 0.01 (0.00-0.03) X10*3/uL Absolute Neuts (auto) 3.8 (2.0-8.3) x10*3/uL Absolute Nucleated RBC 0.000 (0.0-0.012) X10*3/uL Nucleated RBC % (auto) 0.0 (0.0-0.2) /100WBC D-Dimer High Sensitivty 311 NG/ML Sodium (135-145) mmol/L Potassium (3.3-5.1) mmol/L Chloride (96-108) mmol/L Carbon Dioxide (22-29) mmol/L Anion Gap (12-20) BUN (9-16) mg/dL Creatinine (0.5-1.4) mg/dL Estim Creat Clear Calc Estimated GFR Random Glucose (60-115) mg/dL Calcium (8.4-10.2) mg/dL COVID-19 ([facility]) Negative (Negative) COVID-19 Clin Com See Note 04/06/22 Range/Units 10:31 WBC (4.8-10.8) X10*3/uL RBC (4.60-5.80) X10*6/uL Hgb (14.0-18.0) g/dl Hct (42.0-52.0) % MCV (80.0-98.0) fL MCH (27.0-33.0) pg MCHC (31.0-36.0) g/dl RDW (11.0-16.0) % Plt Count (160-400) X10*3/uL MPV (9.4-12.4) fL Immature Gran % (Auto) (0.0-0.4) % Neut % (Auto) (45-73) % Lymph % (Auto) (20-40) % [place] % (Auto) (2-11) % Eos % (Auto) (0-4) % Baso % (Auto) (0-2) % Lymph # (Auto) (1.2-4.9) X10*3/uL [place] # (Auto) (0.1-1.2) X10*3/uL Eos # (Auto) (0.0-0.4) X10*3/uL Baso # (Auto) (0.0-0.2) X10*3/uL Abs Immat Gran (auto) (0.00-0.03) X10*3/uL Absolute Neuts (auto) (2.0-8.3) x10*3/uL Absolute Nucleated RBC (0.0-0.012) X10*3/uL Nucleated RBC % (auto) (0.0-0.2) /100WBC D-Dimer High Sensitivty NG/ML Sodium 141 (135-145) mmol/L Potassium 4.7 (3.3-5.1) mmol/L Chloride 103 (96-108) mmol/L Carbon Dioxide 29 (22-29) mmol/L Anion Gap 14 (12-20) BUN 12 (9-16) mg/dL Creatinine 0.84 (0.5-1.4) mg/dL Estim Creat Clear Calc 104.4 Estimated GFR > 60 Random Glucose 110 (60-115) mg/dL Calcium 9.3 (8.4-10.2) mg/dL COVID-19 ([facility]) (Negative) COVID-19 Clin Com ECG Data Attestation: I personally reviewed and interpreted this ECG as follows: ECG interpretation date: 04/06/22 ECG interpretation time: 10:38 Prior ECG tracings: available for review Interpretation: Sinus bradycardia, ventricular rate 54 beats per minute, normal NH interval, normal QTC, no ST segment elevations or depressions Discharge Plan Discharge Clinical Impression: Anxiety, COVID-19 shen adamson manifesting chronic dyspnea Patient Disposition: Home, Self-Care Instructions: How Your Lungs Work (ED) Additional Instructions: your oxygen level remained perfect today at 100%. Your lungs sound clear. Your chest x-ray is normal. Your lab workup is normal. Your CT scan with contrast showed no evidence of blood clot, normal lungs. Recommend trial of the prescribed anxiety medicine before sleep to see if this helps with your feeling of breathlessness when you lay down. Recommend following up with Pulmonary for further evaluation. Name and number below Prescriptions: New hydroxyzine HCl 50 mg tablet 50 mg PO BEDTIME Qty: 14 0RF No Action hydroxyzine HCl 25 mg tablet 25 mg PO TID PRN (Reason: anxiety) Qty: 30 0RF hydroxyzine HCl 25 mg tablet 25 mg PO BID PRN (Reason: anxiety) Qty: 30 0RF phenazopyridine 100 mg tablet 100 mg PO BID Qty: 6 0RF cetirizine 10 mg tablet 10 mg PO DAILY bupropion HCl 150 mg tablet extended release 24 hr 150 mg PO QAM baclofen 10 mg tablet 10 mg PO TID sertraline 50 mg tablet 50 mg PO DAILY mirtazapine 30 mg tablet 30 mg PO BEDTIME sertraline 100 mg tablet 100 mg PO DAILY Referrals: Tristen Miller MD [Physician] - (chronic SOB post COVID)
[2022-04-06 09:54] LABS: D Dimer High Sensitivity 311 NG/ML
[2022-04-06 10:14] VITALS: BP 129/90; PULSE 56; RESP 16; TEMP 36.4; O2SAT 99
[2022-04-06 10:35] LABS: MANUAL DIFF FLAG NO
[2022-04-06 10:36] LABS: Basophils Absolute Auto 0.1 X10*3/uL (0.0-0.2); Basophils Percent Auto 0.9 % (0-2); Eosinophils Absolute Auto 0.2 X10*3/uL (0.0-0.4); Eosinophils Percent Auto 2.5 % (0-4); Hematocrit 42.6 % (42.0-52.0); Hemoglobin 14.3 g/dl (14.0-18.0); Imm Gran Abs Auto 0.01 X10*3/uL (0.00-0.03); Imm Gran Pct Auto 0.2 % (0.0-0.4); Lymphocytes Absolute Auto 1.9 X10*3/uL (1.2-4.9); Lymphocytes Percent Auto 29.8 % (20-40); Mean Corpuscular HGB Conc 33.6 g/dl (31.0-36.0); Mean Corpuscular Hemoglobin 29.2 pg (27.0-33.0); Mean Corpuscular Volume 87.1 fL (80.0-98.0); Mean Platelet Volume 9.6 fL (9.4-12.4); Monocytes Absolute Auto 0.5 X10*3/uL (0.1-1.2); Monocytes Percent Auto 7.1 % (2-11); Neutrophils Absolute Auto 3.8 x10*3/uL (2.0-8.3); Neutrophils Percent Auto 59.5 % (45-73); Platelet Count 211 X10*3/uL (160-400); Red Blood Count 4.89 X10*6/uL (4.60-5.80); Red Cell Distribution Width 11.9 % (11.0-16.0); White Blood Count 6.4 X10*3/uL (4.8-10.8)
--- NOTE | 2022-04-06 10:51 | PC.NURSE ---
pt a/o x 3 no sob/apryl noted skin pink warm dry speaks in full sentences. amb (i) gait steady.
[2022-04-06 10:56] LABS: Anion Gap 14 (12-20); Blood Urea Nitrogen 12 mg/dL (9-16); Calcium 9.3 mg/dL (8.4-10.2); Carbon Dioxide 29 mmol/L (22-29); Chloride 103 mmol/L (96-108); Creatinine Clr Calc Pharmacy 104.4; Estimated Glomerular Filt Rate > 60; Glucose Random 110 mg/dL (60-115); Potassium 4.7 mmol/L (3.3-5.1); Sodium 141 mmol/L (135-145)
[2022-04-06] MEDS: iohexoL 350 MG/ML 100 ML INFUS..BTL IV (11:17)
[2022-04-06 12:17] VITALS: BP 125/74; PULSE 56; RESP 16; O2SAT 100
--- NOTE | 2022-04-06 12:56 | PC.NURSE ---
PROVIDER SPOKE WITH PATIENT AND PLAN IS FOR DC HOME. PT AWAKE, ALERT AND ORIENTED X 3. SKIN WARM AND DRY. RESP UNLABORED SPEAKING IN FULL CLEAR SENTENCES. NO COUGH NOTED.
== END 2022-04-06 12:59 | disposition home or self-care (01) ==
PROVIDERS: Physician Assistant; Emergency Provider Emergency Medicine; PCP Internal Medicine
DX: U07.1 COVID-19 (principal); R06.02 Shortness of breath; R07.89 Other chest pain; R42 Dizziness and giddiness; F41.1 Generalized anxiety disorder; F43.0 Acute stress reaction; Z79.899 Other long term (current) drug therapy
CPT/HCPCS: 36415; 71045; 71275; 80048; 85025; 85379; 87635; 93005; 99284; Q9967

== ENCOUNTER → 2022-04-15 09:47 | Outpatient (BNVA) | payer OTHER, SELFPAY | PROVIDERS: PCP Internal Medicine; Visit Provider Urology | DX: R30.0 Dysuria (principal) | CPT/HCPCS: 99202 ==

== ENCOUNTER 2022-04-19 11:25 | Emergency (ER) | payer OTHER, SELFPAY ==
--- NOTE | ~2022-04-19 | CT_ITS ---
EXAMINATION: CT ABDOMEN AND PELVIS WITHOUT CONTRAST CLINICAL INFORMATION: Flank pain rule out kidney stone COMPARISON: None TECHNIQUE: Multidetector volumetric imaging was performed from the superior aspect of the liver through the pubic symphysis. Sagittal and coronal reformatted images were obtained on the technologist's workstation. This CT examination was performed using dose optimization techniques as appropriate, variously including the following: *Automated exposure control *Adjustment of mA and/or kV according to patient size (this includes techniques or standardized protocols for targeted exams where dose is matched to indication/reason for exam; i.e. extremities or head) *Use of iterative reconstruction technique DLP: 479 mGy-cm FINDINGS: LUNG BASES: Unremarkable. ABDOMINAL AND PELVIC WALL: Unremarkable. LIVER AND BILIARY TREE: Hypoattenuating hepatic parenchyma compatible with hepatic steatosis. GALLBLADDER: Unremarkable. PANCREAS: Unremarkable. SPLEEN: Unremarkable. ADRENAL GLANDS: Unremarkable. KIDNEYS AND URETERS: No hydronephrosis or nephrolithiasis. GASTROINTESTINAL TRACT: Diverticulosis without evidence of diverticulitis. Normal appendix. VASCULAR: Unremarkable. LYMPH NODES/PERITONEUM: No lymphadenopathy. FREE FLUID: None. BLADDER: Unremarkable. PELVIC VISCERA: Unremarkable. OSSEOUS STRUCTURES: Unremarkable. CT/CT abdomen pelvis wo con IMPRESSION: No hydronephrosis or nephrolithiasis. Hepatic steatosis.
[2022-04-19 11:37] VITALS: BP 138/81; PULSE 66; RESP 18; TEMP 36.7; O2SAT 99; BMI 26.6
[2022-04-19 11:54] LABS: MANUAL DIFF FLAG NO
[2022-04-19 12:01] LABS: Basophils Absolute Auto 0.1 X10*3/uL (0.0-0.2); Basophils Percent Auto 1.3 % (0-2); Eosinophils Absolute Auto 0.2 X10*3/uL (0.0-0.4); Eosinophils Percent Auto 3.5 % (0-4); Hematocrit 42.9 % (42.0-52.0); Hemoglobin 14.7 g/dl (14.0-18.0); Imm Gran Abs Auto 0.01 X10*3/uL (0.00-0.03); Imm Gran Pct Auto 0.2 % (0.0-0.4); Lymphocytes Absolute Auto 1.7 X10*3/uL (1.2-4.9); Lymphocytes Percent Auto 31.3 % (20-40); Mean Corpuscular HGB Conc 34.3 g/dl (31.0-36.0); Mean Corpuscular Hemoglobin 29.2 pg (27.0-33.0); Mean Corpuscular Volume 85.1 fL (80.0-98.0); Mean Platelet Volume 9.5 fL (9.4-12.4); Monocytes Absolute Auto 0.4 X10*3/uL (0.1-1.2); Monocytes Percent Auto 6.9 % (2-11); Neutrophils Absolute Auto 3.1 x10*3/uL (2.0-8.3); Neutrophils Percent Auto 56.8 % (45-73); Platelet Count 235 X10*3/uL (160-400); Red Blood Count 5.04 X10*6/uL (4.60-5.80); Red Cell Distribution Width 11.9 % (11.0-16.0); White Blood Count 5.4 X10*3/uL (4.8-10.8)
[2022-04-19 12:16] LABS: Appearance Urine HAZY; Color Urine YELLOW; Glucose Urine UA NEG (NEG); Leukocyte Esterase Urine NEG (NEG); Nitrite Urine NEG (NEG); PH 5.5 (5.0-8.0); Specific Gravity - Urine >= 1.030 (1.005-1.025); Urine Blood NEG (NEG); Urine Ketones NEG (NEG); Urine Protein NEG (NEG-TRACE)
[2022-04-19 12:16] LABS: Alanine Aminotransferase 52 U/L (0-40); Albumin Level 4.3 g/dL (3.5-5.0); Alkaline Phosphatase 68 U/L (39-117); Anion Gap 14 (12-20); Aspartate Amino Transferase 26 U/L (5-37); Bilirubin Total 0.7 mg/dL (0.0-1.0); Blood Urea Nitrogen 13 mg/dL (9-16); Calcium 9.1 mg/dL (8.4-10.2); Carbon Dioxide 25 mmol/L (22-29); Chloride 105 mmol/L (96-108); Creatinine Clr Calc Pharmacy 90.4; Estimated Glomerular Filt Rate > 60; Glucose Random 115 mg/dL (60-115); Potassium 4.4 mmol/L (3.3-5.1); Sodium 140 mmol/L (135-145); Total Protein 7.6 g/dL (6.5-8.0)
--- NOTE | 2022-04-19 15:42 | ED.MALEGU ---
HPI - Male Genitourinary General Chief complaint: Urogenital-Male Stated complaint: Back pain/genital pain Time Seen by Provider: 04/19/22 15:42 History of Present Illness HPI Narrative: Patient complains of back pain shooting into his groin for about several weeks He was seen about a month ago by a doctor who put him on a medication for prostatitis He denies any fever no vomiting no abdominal pain no testicular pain no burning with urination no frequency of urination Related Data Home Medications Medication Instructions Recorded Confirmed baclofen 10 mg tablet 10 mg PO TID 06/04/20 04/22/22 bupropion HCl 150 mg 24 hr tablet, 150 mg PO QAM 06/04/20 04/22/22 extended release cetirizine 10 mg tablet 10 mg PO DAILY 06/04/20 04/22/22 mirtazapine 30 mg tablet 30 mg PO BEDTIME 01/07/22 01/07/22 sertraline 100 mg tablet 100 mg PO DAILY 01/07/22 01/07/22 sertraline 50 mg tablet 50 mg PO DAILY 01/07/22 01/07/22 buprenorphine 2 mg-naloxone 0.5 mg 0 film sublingual 04/14/22 04/22/22 sublingual film mirtazapine 15 mg tablet 15 mg PO BEDTIME 04/14/22 04/22/22 hydrocortisone 2.5 % topical cream topical BID 04/22/22 04/22/22 with perineal applicator naloxone 4 mg/actuation nasal spray 0 spray intranasal 04/22/22 04/22/22 Previous Rx's Medication Instructions Recorded hydroxyzine HCl 25 mg tablet 25 mg PO TID PRN anxiety #30 tabs 09/29/21 phenazopyridine 100 mg tablet 100 mg PO BID 6 doses #6 tabs 02/19/22 hydroxyzine HCl 25 mg tablet 25 mg PO BID PRN anxiety #30 tabs 02/20/22 hydroxyzine HCl 50 mg tablet 50 mg PO BEDTIME #14 tabs 04/06/22 ibuprofen 600 mg tablet 600 mg PO Q6H PRN pain #20 tabs 04/19/22 fluticasone propionate 110 2 puff inhalation DAILY 30 days 04/22/22 mcg/actuation HFA aerosol inhaler #12 grams (Flovent HFA) omeprazole 40 mg capsule,delayed 40 mg PO DAILY 30 days #30 caps 04/22/22 release Allergies Allergy/AdvReac Type Severity Reaction Status Date / Time shellfish Allergy Unknown rash Uncoded 04/22/22 10:50 Review of Systems Review of Systems: Positive for back pain radiating to the groin No fever no chills no dizziness no weakness no fainting no feeling faint no headache no neck pain no chest pain no abdominal pain no nausea vomiting or diarrhea no dysuria no frequency no incontinence no skin rash Yes all other systems are reviewed and are negative PMFSH Past Medical History Source: nursing notes reviewed Medical History (Updated 04/22/22 @ 22:36 by Tristen Miller MD) Anxiety 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 Mother No problems noted. Paternal Aunt Lung cancer Social History Social History Alcohol intake: never Patient Tobacco Use Status: Never used Tobacco e-Cigarette/Vaping Use: Currently Using Physical Exam Vital Signs: Vital Signs: Last Vital Signs Temp 98.1 F 04/19/22 11:37 Pulse 66 04/19/22 11:37 Resp 18 04/19/22 11:37 BP 138/81 04/19/22 11:37 Pulse Ox 99 04/19/22 11:37 O2 Del Method 04/19/22 11:37 BMI result Body Mass Index 26.6 General appearance is no distress Head is normocephalic atraumatic Eyes pupils equal round reactive to light extraocular motions intact anicteric no pallor Pharynx membranes moist, no redness swelling or exudate Neck is supple Chest clear to auscultation bilateral no respiratory distress Abdomen is soft and non tender Back exam there is bilateral flank and lower lumbar tenderness, he is able to bend and move and stand up off the bed comfortably, skin of the back was normal Extremities full range of motion x4 Skin no rash Neuro gait and balance are normal, patient motor 5/5 x4, sensation intact and symmetrical Course Course Course Narrative: CT scan of the abdomen and pelvis without contrast was done which was negative for any acute findings Urinalysis was negative for any signs of infection, CBC and chemistry no acute findings Well-appearing patient was discharged with diagnosis of nonspecific back pain without neurologic deficit, no sign of infection He will follow with his doctor and urologist [facility] - Male Genitourinary Lab Data Attestation: I reviewed the patient's lab results. Result diagrams: 04/19/22 11:49 04/19/22 11:49 Labs: Lab Results 04/19/22 04/19/22 04/19/22 Range/Units 11:49 11:49 11:59 WBC 5.4 (4.8-10.8) X10*3/uL RBC 5.04 (4.60-5.80) X10*6/uL Hgb 14.7 (14.0-18.0) g/dl Hct 42.9 (42.0-52.0) % MCV 85.1 (80.0-98.0) fL MCH 29.2 (27.0-33.0) pg MCHC 34.3 (31.0-36.0) g/dl RDW 11.9 (11.0-16.0) % Plt Count 235 (160-400) X10*3/uL MPV 9.5 (9.4-12.4) fL Immature Gran % (Auto) 0.2 (0.0-0.4) % Neut % (Auto) 56.8 (45-73) % Lymph % (Auto) 31.3 (20-40) % [place] % (Auto) 6.9 (2-11) % Eos % (Auto) 3.5 (0-4) % Baso % (Auto) 1.3 (0-2) % Lymph # (Auto) 1.7 (1.2-4.9) X10*3/uL [place] # (Auto) 0.4 (0.1-1.2) X10*3/uL Eos # (Auto) 0.2 (0.0-0.4) X10*3/uL Baso # (Auto) 0.1 (0.0-0.2) X10*3/uL Abs Immat Gran (auto) 0.01 (0.00-0.03) X10*3/uL Absolute Neuts (auto) 3.1 (2.0-8.3) x10*3/uL Absolute Nucleated RBC 0.000 (0.0-0.012) X10*3/uL Nucleated RBC % (auto) 0.0 (0.0-0.2) /100WBC Sodium 140 (135-145) mmol/L Potassium 4.4 (3.3-5.1) mmol/L Chloride 105 (96-108) mmol/L Carbon Dioxide 25 (22-29) mmol/L Anion Gap 14 (12-20) BUN 13 (9-16) mg/dL Creatinine 0.97 (0.5-1.4) mg/dL Estim Creat Clear Calc 90.4 Estimated GFR > 60 Random Glucose 115 (60-115) mg/dL Calcium 9.1 (8.4-10.2) mg/dL Total Bilirubin 0.7 (0.0-1.0) mg/dL AST 26 (5-37) U/L ALT 52 H (0-40) U/L Alkaline Phosphatase 68 (39-117) U/L Total Protein 7.6 (6.5-8.0) g/dL Albumin 4.3 (3.5-5.0) g/dL Urine Color YELLOW Urine Appearance HAZY Urine pH 5.5 (5.0-8.0) Ur Specific [place] >= 1.030 H (1.005-1.025) Urine Protein NEG (NEG-TRACE) MG/DL Urine Glucose (UA) NEG (NEG) MG/DL Urine Ketones NEG (NEG) MG/DL Urine Blood NEG (NEG) Urine Nitrite NEG (NEG) Ur Leukocyte Esterase NEG (NEG) Chlam trachomat DNA PCR (Not Detect.) N.gonorrhoeae DNA (PCR) (Not Detect.) 04/19/22 Range/Units 16:21 WBC (4.8-10.8) X10*3/uL RBC (4.60-5.80) X10*6/uL Hgb (14.0-18.0) g/dl Hct (42.0-52.0) % MCV (80.0-98.0) fL MCH (27.0-33.0) pg MCHC (31.0-36.0) g/dl RDW (11.0-16.0) % Plt Count (160-400) X10*3/uL MPV (9.4-12.4) fL Immature Gran % (Auto) (0.0-0.4) % Neut % (Auto) (45-73) % Lymph % (Auto) (20-40) % [place] % (Auto) (2-11) % Eos % (Auto) (0-4) % Baso % (Auto) (0-2) % Lymph # (Auto) (1.2-4.9) X10*3/uL [place] # (Auto) (0.1-1.2) X10*3/uL Eos # (Auto) (0.0-0.4) X10*3/uL Baso # (Auto) (0.0-0.2) X10*3/uL Abs Immat Gran (auto) (0.00-0.03) X10*3/uL Absolute Neuts (auto) (2.0-8.3) x10*3/uL Absolute Nucleated RBC (0.0-0.012) X10*3/uL Nucleated RBC % (auto) (0.0-0.2) /100WBC Sodium (135-145) mmol/L Potassium (3.3-5.1) mmol/L Chloride (96-108) mmol/L Carbon Dioxide (22-29) mmol/L Anion Gap (12-20) BUN (9-16) mg/dL Creatinine (0.5-1.4) mg/dL Estim Creat Clear Calc Estimated GFR Random Glucose (60-115) mg/dL Calcium (8.4-10.2) mg/dL Total Bilirubin (0.0-1.0) mg/dL AST (5-37) U/L ALT (0-40) U/L Alkaline Phosphatase (39-117) U/L Total Protein (6.5-8.0) g/dL Albumin (3.5-5.0) g/dL Urine Color Urine Appearance Urine pH (5.0-8.0) Ur Specific [place] (1.005-1.025) Urine Protein (NEG-TRACE) MG/DL Urine Glucose (UA) (NEG) MG/DL Urine Ketones (NEG) MG/DL Urine Blood (NEG) Urine Nitrite (NEG) Ur Leukocyte Esterase (NEG) Chlam trachomat DNA PCR NOT DETECTED (Not Detect.) N.gonorrhoeae DNA (PCR) NOT DETECTED (Not Detect.) Discharge Plan Discharge Clinical Impression: Back pain Patient Disposition: Home, Self-Care Additional Instructions: Our workup today including CT scan blood tests and urine test did not show any dangerous condition or worrisome results physical exam was normal Follow with urologist and her doctor for further evaluation You can use Motrin as needed for pain Return any worse condition or any concerns Prescriptions: New ibuprofen 600 mg tablet 600 mg PO Q6H PRN (Reason: pain) Qty: 20 0RF No Action hydroxyzine HCl 25 mg tablet 25 mg PO TID PRN (Reason: anxiety) Qty: 30 0RF hydroxyzine HCl 25 mg tablet 25 mg PO BID PRN (Reason: anxiety) Qty: 30 0RF phenazopyridine 100 mg tablet 100 mg PO BID Qty: 6 0RF hydroxyzine HCl 50 mg tablet 50 mg PO BEDTIME Qty: 14 0RF cetirizine 10 mg tablet 10 mg PO DAILY bupropion HCl 150 mg tablet extended release 24 hr 150 mg PO QAM baclofen 10 mg tablet 10 mg PO TID sertraline 50 mg tablet 50 mg PO DAILY mirtazapine 30 mg tablet 30 mg PO BEDTIME sertraline 100 mg tablet 100 mg PO DAILY naloxone 4 mg/actuation spray,non-aerosol 0 spray intranasal hydrocortisone 2.5 % cream with perineal applicator topical BID fluticasone propionate [Flovent HFA] 110 mcg/actuation HFA aerosol inhaler 2 puff inhalation DAILY 30 Days Qty: 12 4RF omeprazole 40 mg capsule,delayed release(DR/EC) 40 mg PO DAILY 30 Days Qty: 30 3RF buprenorphine-naloxone 2-0.5 mg film 0 film sublingual mirtazapine 15 mg tablet 15 mg PO BEDTIME Interventions: ED Discharge Assessment Last Done: 04/19/22 18:52 Discharge Date/Time: 04/19/22 18:52
[2022-04-20 03:55] LABS: CT PCR NOT DETECTED (Not Detect.); NG PCR NOT DETECTED (Not Detect.)
== END 2022-04-19 18:52 | disposition home or self-care (01) ==
PROVIDERS: Physician Assistant Medical; Emergency Provider Emergency Medicine Emergency Medical Services; PCP Internal Medicine
DX: M54.50 Low back pain, unspecified (principal); R10.9 Unspecified abdominal pain; N50.812 Left testicular pain; N50.811 Right testicular pain; Z79.899 Other long term (current) drug therapy
CPT/HCPCS: 36415; 74176; 80053; 81003; 85025; 87491; 87591; 99282; 99283

== ENCOUNTER 2022-04-20 23:15 | Emergency (ER) | payer OTHER, SELFPAY ==
--- NOTE | 2022-04-20 | ECG_ITS ---
Test Reason : CHEST PAIN Blood Pressure : / mmHG Vent. Rate : 065 BPM Atrial Rate : 065 BPM P-R Int : 144 ms QRS Dur : 090 ms QT Int : 396 ms P-R-T Axes : 044 050 019 degrees QTc Int : 411 ms Normal sinus rhythm Normal ECG When compared with ECG of 06-APR-2022 08:58, Heart rate has increased Referred By: Shreyas Zapata Electronically Signed By:CHU DEVLIN
--- NOTE | ~2022-04-20 | XR_ITS ---
EXAMINATION: XR CHEST CLINICAL INFORMATION: Chest pain COMPARISON: 04/06/2022 TECHNIQUE: 2 views of the chest were obtained. FINDINGS: The lungs are well expanded. There is no focal consolidation, edema, or effusion. No pneumothorax. The cardiomediastinal silhouette is within normal limits. No acute osseous abnormality. XR/XR chest 2V IMPRESSION: No acute pulmonary finding.
[2022-04-20 23:20] VITALS: BP 112/80; PULSE 68; O2SAT 97
[2022-04-20 23:26] VITALS: BP 126/64; PULSE 64; RESP 16; TEMP 36.9; O2SAT 97; BMI 26.6
--- NOTE | 2022-04-20 23:30 | ED_ITS ---
HPI - General Adult General Chief complaint: Chest Pain Stated complaint: CP Time Seen by Provider: 04/20/22 23:28 Source: patient Limitations: no limitations History of Present Illness HPI narrative: This is a 41-year-old male came in by ambulance. The patient had gone to get a [place] in his car, was on his way home he developed a feeling of dizziness and some numbness and tingling in his left shoulder with associated pain. The patient notes that he occasionally gets stabbing pains in this area. He felt very anxious when he got these symptoms tonight and when he talked to his family they advised that he should call and Ambulance. Patient feels somewhat better now. He feels a little short of breath. Denies any nausea or sweats. He had some discomfort in his left upper arm. Notes he has had prior workup for chest pain including an echocardiogram and was told everything was good. The patient notes he was here in the ED yesterday for the evaluation of lower abdominal/back pain, had a CT scan. Patient denies any history of hypertension or diabetes, denies elevated cholesterol. He does vape. Related Data Home Medications Medication Instructions Recorded Confirmed baclofen 10 mg tablet 10 mg PO TID 06/04/20 01/07/22 bupropion HCl 150 mg 24 hr tablet, 150 mg PO QAM 06/04/20 01/07/22 extended release cetirizine 10 mg tablet 10 mg PO DAILY 06/04/20 01/07/22 mirtazapine 30 mg tablet 30 mg PO BEDTIME 01/07/22 01/07/22 sertraline 100 mg tablet 100 mg PO DAILY 01/07/22 01/07/22 sertraline 50 mg tablet 50 mg PO DAILY 01/07/22 01/07/22 buprenorphine 2 mg-naloxone 0.5 mg 0 film sublingual 04/14/22 sublingual film mirtazapine 15 mg tablet 15 mg PO BEDTIME 04/14/22 nicotine 14 mg/24 hr daily 1 patch topical DAILY 04/14/22 transdermal patch tramadol 50 mg tablet 50 mg PO BID PRN 04/14/22 Previous Rx's Medication Instructions Recorded hydroxyzine HCl 25 mg tablet 25 mg PO TID PRN anxiety #30 tabs 09/29/21 phenazopyridine 100 mg tablet 100 mg PO BID 6 doses #6 tabs 06/16/22 hydroxyzine HCl 25 mg tablet 25 mg PO BID PRN anxiety #30 tabs 02/20/22 hydroxyzine HCl 50 mg tablet 50 mg PO BEDTIME #14 tabs 04/06/22 ibuprofen 600 mg tablet 600 mg PO Q6H PRN pain #20 tabs 04/19/22 Allergies Allergy/AdvReac Type Severity Reaction Status Date / Time shellfish Allergy Unknown rash Uncoded 04/14/22 11:24 Review of Systems Review of Systems: Yes all other systems are reviewed and are negative Constitutional: Constitutional: Reports as per HPI and Denies fever(s) Eyes: Eyes: Reports as per HPI and Reports no additional eye complaints ENT: Reports system reviewed and no additional complaints, except as documented, Reports as per HPI, Denies nasal congestion, Denies nasal discharge and Denies sore throat Cardiovascular: Cardiovascular: Reports as per HPI, Reports chest pain and Reports dyspnea Respiratory: Respiratory: Reports as per HPI, Denies cough and Reports dyspnea Gastrointestinal: Gastrointestinal: Reports as per HPI, Denies abdominal pain, Denies diarrhea and Denies vomiting Genitourinary: Genitourinary: Reports as per HPI, Denies hematuria, Denies dysuria and Denies urinary frequency Musculoskeletal: Musculoskeletal: Reports no additional musculoskeletal complaints and Denies numbness Integumentary/Breasts: Skin/Breast: Reports as per HPI and Denies rash Neurologic: Reports as per HPI, Denies focal weakness and Denies numbness Psychiatric: Psychiatric: Reports no additional psychiatric complaints and Reports as per HPI Endocrine: Endocrine: Reports no additional endocrine complaints and Reports as per HPI Hematologic/Lymphatic: Hematologic/Lymphatic: Reports no additional hematologic/lymphatic complaints, Reports as per HPI and Reports other (No peripheral edema) [facility] Past Medical History Medical History Anxiety COVID-19 Surgical History History of cornea transplant Family History Family History Father No problems noted. Mother No problems noted. Paternal Aunt Lung cancer Social History Social History Alcohol intake: never Patient Tobacco Use Status: Never used Tobacco e-Cigarette/Vaping Use: Currently Using Advance Directives: No Physical Exam ED Vital Signs: Vital Signs - 24 hr 04/20/22 23:26 04/21/22 00:26 Temperature 98.4 F Pulse Rate 64 59 Respiratory Rate 16 16 Blood Pressure 126/64 116/62 Pulse Oximetry 97 98 Oxygen Delivery Method Room Air Room Air BMI result Body Mass Index 26.6 Const General: no acute distress Orientation/consciousness: patient oriented x3 HENMT Head: Yes normal to inspection General nose exam: Normal external nose present Mouth: moist mucous membranes Throat: Yes posterior oropharynx normal, Yes tonsils normal and Yes uvula midline Eyes Eyelids: Yes eyelids normal Conjunctivae: conjunctivae normal Pupils: Equal, round and reactive pupils present Neck Neck: Yes supple Resp Effort & Inspection: normal respiratory effort Auscultation: clear to auscultation bilaterally Cardio Rate: regular rate Rhythm: regular rhythm Heart sounds: S1 normal heart sound present, S2 normal heart sound present, no gallops, no murmurs and no rubs GI Inspection: No distended Palpation (GI): Soft to palpation and nontender Auscultation: normal bowel sounds Skin General skin exam: other (Warm and dry) Neuro General: patient oriented x3 and CN's II-XI intact bilaterally Cranial nerves: Yes Equal, round and reactive pupils present Extrem General: Yes no pedal edema Psych Affect: normal affect Attitude: cooperative Medical Decision Making MDM Narrative Medical decision making narrative: Patient with a history of anxiety, had been here yesterday for lower and abdominal back pain,, had a negative workup. Patient had chest discomfort around his left shoulder and left upper arm of acute onset tonight, which seemed to have been compounded by an anxiety attack. EKG and chest x-ray normal. Given the nature of the symptoms, do not suspect acute coronary syndrome. Patient improved with Toradol and lorazepam Imaging Data Chest x-ray: Radiologist's impression: IMPRESSION: No acute pulmonary finding. ECG Data Attestation: I personally reviewed and interpreted this ECG as follows: Interpretation: Sinus rhythm with a rate of 65. No ST elevation or depression. Normal QRS axis. No ectopy. Normal EKG. Discharge Plan Discharge Clinical Impression: Atypical chest pain, Anxiety Patient Disposition: Home, Self-Care Instructions: Chest Pain (ED), Anxiety (ED) Additional Instructions: Use ibuprofen for pain. Follow up with your primary care physician. Return for any new or worsened symptoms Prescriptions: No Action hydroxyzine HCl 25 mg tablet 25 mg PO TID PRN (Reason: anxiety) Qty: 30 0RF hydroxyzine HCl 25 mg tablet 25 mg PO BID PRN (Reason: anxiety) Qty: 30 0RF phenazopyridine 100 mg tablet 100 mg PO BID Qty: 6 0RF hydroxyzine HCl 50 mg tablet 50 mg PO BEDTIME Qty: 14 0RF ibuprofen 600 mg tablet 600 mg PO Q6H PRN (Reason: pain) Qty: 20 0RF cetirizine 10 mg tablet 10 mg PO DAILY bupropion HCl 150 mg tablet extended release 24 hr 150 mg PO QAM baclofen 10 mg tablet 10 mg PO TID sertraline 50 mg tablet 50 mg PO DAILY mirtazapine 30 mg tablet 30 mg PO BEDTIME sertraline 100 mg tablet 100 mg PO DAILY buprenorphine-naloxone 2-0.5 mg film 0 film sublingual nicotine 14 mg/24 hr patch 24 hour 1 patch topical DAILY tramadol 50 mg tablet 50 mg PO BID PRN mirtazapine 15 mg tablet 15 mg PO BEDTIME Interventions: ED Discharge Assessment Last Done: 04/21/22 00:27 Discharge Date/Time: 04/21/22 00:27
[2022-04-20] MEDS: Ketorolac Tromethamine 15 MG/ML VIAL IM (23:47)
[2022-04-20] MEDS: LORazepam 1 MG TABLET PO (23:47)
[2022-04-21 00:26] VITALS: BP 116/62; PULSE 59; RESP 16; O2SAT 98
== END 2022-04-21 00:27 | disposition home or self-care (01) ==
PROVIDERS: Emergency Provider Emergency Medicine; PCP Internal Medicine
DX: R07.89 Other chest pain (principal); R42 Dizziness and giddiness; F41.1 Generalized anxiety disorder; F43.0 Acute stress reaction; Z79.899 Other long term (current) drug therapy
CPT/HCPCS: 71046; 93005; 96372; 99284; 99285; J1885

== ENCOUNTER → 2022-04-22 10:48 | Outpatient (BNVA) | payer OTHER, SELFPAY | PROVIDERS: PCP Internal Medicine; Visit Provider Hospitalist | DX: R06.02 Shortness of breath (principal); R00.2 Palpitations; U09.9 Post COVID-19 condition, unspecified; G47.33 Obstructive sleep apnea (adult) (pediatric) | CPT/HCPCS: 99202 ==

== ENCOUNTER 2022-04-26 21:20 | Emergency (ER) | payer OTHER, SELFPAY ==
--- NOTE | 2022-04-26 21:36 | ECG_ITS ---
Test Reason : CP Blood Pressure : / mmHG Vent. Rate : 060 BPM Atrial Rate : 060 BPM P-R Int : 140 ms QRS Dur : 088 ms QT Int : 416 ms P-R-T Axes : 064 070 040 degrees QTc Int : 416 ms Normal sinus rhythm Normal ECG When compared with ECG of 20-APR-2022 23:29, No significant change was found Referred By: Natali Vance Electronically Signed By:CHU DEVLIN
--- NOTE | 2022-04-26 21:36 | ED_ITS ---
HPI - Chest Pain General Chief Complaint: Chest Pain Stated Complaint: chest discomfort/ dizziness Time Seen by Provider: 04/26/22 21:35 Source: patient and old records reviewed Mode of arrival: EMS Limitations: no limitations History of Present Illness MD complaint: other (anxiety, palpitations, feels like he has something in his throat, thinks his sertraline isn't working) Pertinent past history: other (anxiety) Onset (ago): day(s) (for months but started again this AM) Timing of current episode: episodic Prior episodes: Yes Onset: during rest Pain location: substernal Pain radiation: none Severity: mild Quality: tightness Relieving factors: nothing Exacerbating factors: stress Context: other (hx of similar episodes) Associated symptoms: sense of impending doom and palpitations Treatment prior to arrival: other (25mg sertraline) Related Data Home Medications Medication Instructions Recorded Confirmed baclofen 10 mg tablet 10 mg PO TID 06/04/20 04/22/22 bupropion HCl 150 mg 24 hr tablet, 150 mg PO QAM 06/04/20 04/22/22 extended release cetirizine 10 mg tablet 10 mg PO DAILY 06/04/20 04/22/22 mirtazapine 30 mg tablet 30 mg PO BEDTIME 01/07/22 01/07/22 sertraline 100 mg tablet 100 mg PO DAILY 01/07/22 01/07/22 sertraline 50 mg tablet 50 mg PO DAILY 01/07/22 01/07/22 buprenorphine 2 mg-naloxone 0.5 mg 0 film sublingual 04/14/22 04/22/22 sublingual film mirtazapine 15 mg tablet 15 mg PO BEDTIME 04/14/22 04/22/22 hydrocortisone 2.5 % topical cream topical BID 04/22/22 04/22/22 with perineal applicator naloxone 4 mg/actuation nasal spray 0 spray intranasal 04/22/22 04/22/22 Previous Rx's Medication Instructions Recorded hydroxyzine HCl 25 mg tablet 25 mg PO TID PRN anxiety #30 tabs 09/29/21 phenazopyridine 100 mg tablet 100 mg PO BID 6 doses #6 tabs 02/19/22 hydroxyzine HCl 25 mg tablet 25 mg PO BID PRN anxiety #30 tabs 02/20/22 hydroxyzine HCl 50 mg tablet 50 mg PO BEDTIME #14 tabs 04/06/22 ibuprofen 600 mg tablet 600 mg PO Q6H PRN pain #20 tabs 04/19/22 fluticasone propionate 110 2 puff inhalation DAILY 30 days 04/22/22 mcg/actuation HFA aerosol inhaler #12 grams (Flovent HFA) omeprazole 40 mg capsule,delayed 40 mg PO DAILY 30 days #30 caps 04/22/22 release hydroxyzine HCl 50 mg tablet 50 mg PO BEDTIME PRN sleep #20 tabs 04/26/22 Allergies Allergy/AdvReac Type Severity Reaction Status Date / Time shellfish Allergy Unknown rash Uncoded 04/26/22 21:46 Review of Systems Review of Systems: Constitutional : No Weight loss, No Fever, No Chills ENT/Mouth : No sore throat, No Rhinorrhea Eyes: No Eye Pain, No Swelling Cardiovascular : pos Chest Pain, pos SOB, no Dyspnea on Exertion, No Orthopnea, No Edema, pos Palpitations Respiratory : No Cough, No Sputum Gastrointestinal : no Nausea, No Vomiting, No Diarrhea, No abdominal Pain, No Hematochezia, No Melena Genitourinary : No Dysuria, No Urinary Frequency Musculoskeletal : No joint pain, No Myalgias, No Joint Swelling Skin : No Skin Lesions, No rash Neuro : No Weakness, No Numbness, No Dizziness, No Headache Psych : pos Anxiety/Panic, No Depression Heme/Lymph: No Bruising, No Lymphadenopathy Endocrine : No Polyuria, No Polydipsia All other systems reviewed and are negative PMFSH Past Medical History Attestation statement: The following information was validated with the patient. 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 Mother No problems noted. Paternal Aunt Lung cancer Social History Social History Alcohol intake: never Patient Tobacco Use Status: Never used Tobacco e-Cigarette/Vaping Use: Currently Using Advance Directives: No Advance Directives Information Provided: Yes Physical Exam Vital Signs: Vital Signs: Last Vital Signs Temp 97.8 F 04/26/22 21:46 Pulse 62 04/26/22 21:46 Resp 18 04/26/22 21:46 BP 124/71 04/26/22 21:46 Pulse Ox 98 04/26/22 21:46 O2 Del Method 04/26/22 21:46 BMI result Body Mass Index 26.3 Appearance: Alert. Oriented X3. No acute distress. Eyes: Pupils equal, round and reactive to light. ENT: Pharynx normal. No swelling no erythema Neck: Normal inspection. Neck supple. CVS: Normal heart rate and rhythm. Pulses normal. Respiratory: No respiratory distress. Breath sounds normal. Abdomen: Soft and nontender. Skin: Skin warm and dry. Normal skin color. Normal skin turgor. Extremities: No lower extremity edema. No calf ttp Neuro: Oriented X 3. No motor deficit. No sensory deficit. Course Course Course Narrative: negative troponin stable for DC MDM - Chest Pain MDM Narrative Medical decision making narrative: 41 yo male with hx of anxiety, POST covid syndrome frequent visits for anxiety here with c/o chest tightness feeling like he can't swallow all day and his anxiety medications are not working. He is on sertraline but is not helping. Seen multiple times for the same - will obtain basic labs, EKG troponin x 1 given > 6 hours of symptoms Lab Data Result diagrams: 04/26/22 22:12 04/26/22 22:12 Labs: Lab Results 04/26/22 04/26/22 04/26/22 Range/Units 22:12 22:12 22:12 WBC 5.8 (4.8-10.8) X10*3/uL RBC 4.73 (4.60-5.80) X10*6/uL Hgb 13.8 L (14.0-18.0) g/dl Hct 40.3 L (42.0-52.0) % MCV 85.2 (80.0-98.0) fL MCH 29.2 (27.0-33.0) pg MCHC 34.2 (31.0-36.0) g/dl RDW 11.8 (11.0-16.0) % Plt Count 239 (160-400) X10*3/uL MPV 9.4 (9.4-12.4) fL Immature Gran % (Auto) 0.2 (0.0-0.4) % Neut % (Auto) 67.6 (45-73) % Lymph % (Auto) 23.5 (20-40) % [place] % (Auto) 7.0 (2-11) % Eos % (Auto) 0.7 (0-4) % Baso % (Auto) 1.0 (0-2) % Lymph # (Auto) 1.4 (1.2-4.9) X10*3/uL [place] # (Auto) 0.4 (0.1-1.2) X10*3/uL Eos # (Auto) 0.0 (0.0-0.4) X10*3/uL Baso # (Auto) 0.1 (0.0-0.2) X10*3/uL Abs Immat Gran (auto) 0.01 (0.00-0.03) X10*3/uL Absolute Neuts (auto) 4.0 (2.0-8.3) x10*3/uL Absolute Nucleated RBC 0.000 (0.0-0.012) X10*3/uL Nucleated RBC % (auto) 0.0 (0.0-0.2) /100WBC Sodium 142 (135-145) mmol/L Potassium 4.7 (3.3-5.1) mmol/L Chloride 105 (96-108) mmol/L Carbon Dioxide 28 (22-29) mmol/L Anion Gap 14 (12-20) BUN 12 (9-16) mg/dL Creatinine 0.91 (0.5-1.4) mg/dL Estim Creat Clear Calc 96.4 Estimated GFR > 60 Random Glucose 97 (60-115) mg/dL Calcium 9.6 (8.4-10.2) mg/dL Magnesium 2.1 (1.6-2.6) mg/dL Troponin I High Sens 4.0 (<3.5-35.0) ng/L ECG Data ECG #1: Attestation: I personally reviewed and interpreted this ECG as follows: ECG interpretation date: 04/26/22 ECG interpretation time: 21:39 Interpretation: Rate: 60 Rhythm: NSR [place]: normal Normal P waves. Normal ZO. Normal QRS complex. ST T wave : normal no VERONICA qTC: normal prior studies: no acute ischemia The study has been interpreted contemporaneously by me. . Discharge Plan Discharge Clinical Impression: Anxiety Patient Disposition: Home, Self-Care Instructions: Anxiety (ED) Additional Instructions: return to ED for any worsening symptoms or concerns please talk to your psychiatrist about management of your anxiety Prescriptions: New hydroxyzine HCl 50 mg tablet 50 mg PO BEDTIME PRN (Reason: sleep) Qty: 20 0RF No Action hydroxyzine HCl 25 mg tablet 25 mg PO TID PRN (Reason: anxiety) Qty: 30 0RF hydroxyzine HCl 25 mg tablet 25 mg PO BID PRN (Reason: anxiety) Qty: 30 0RF phenazopyridine 100 mg tablet 100 mg PO BID Qty: 6 0RF hydroxyzine HCl 50 mg tablet 50 mg PO BEDTIME Qty: 14 0RF ibuprofen 600 mg tablet 600 mg PO Q6H PRN (Reason: pain) Qty: 20 0RF cetirizine 10 mg tablet 10 mg PO DAILY bupropion HCl 150 mg tablet extended release 24 hr 150 mg PO QAM baclofen 10 mg tablet 10 mg PO TID sertraline 50 mg tablet 50 mg PO DAILY mirtazapine 30 mg tablet 30 mg PO BEDTIME sertraline 100 mg tablet 100 mg PO DAILY naloxone 4 mg/actuation spray,non-aerosol 0 spray intranasal hydrocortisone 2.5 % cream with perineal applicator topical BID fluticasone propionate [Flovent HFA] 110 mcg/actuation HFA aerosol inhaler 2 puff inhalation DAILY 30 Days Qty: 12 4RF omeprazole 40 mg capsule,delayed release(DR/EC) 40 mg PO DAILY 30 Days Qty: 30 3RF buprenorphine-naloxone 2-0.5 mg film 0 film sublingual mirtazapine 15 mg tablet 15 mg PO BEDTIME Interventions: ED Discharge Assessment Last Done: 04/26/22 23:23 Discharge Date/Time: 04/26/22 23:24
[2022-04-26 21:46] VITALS: BP 124/71; PULSE 62; RESP 18; TEMP 36.6; O2SAT 98; BMI 26.3
[2022-04-26 22:17] LABS: MANUAL DIFF FLAG NO
[2022-04-26 22:18] LABS: Basophils Absolute Auto 0.1 X10*3/uL (0.0-0.2); Eosinophils Percent Auto 0.7 % (0-4); Hematocrit 40.3 % (42.0-52.0); Hemoglobin 13.8 g/dl (14.0-18.0); Imm Gran Abs Auto 0.01 X10*3/uL (0.00-0.03); Imm Gran Pct Auto 0.2 % (0.0-0.4); Lymphocytes Absolute Auto 1.4 X10*3/uL (1.2-4.9); Lymphocytes Percent Auto 23.5 % (20-40); Mean Corpuscular HGB Conc 34.2 g/dl (31.0-36.0); Mean Corpuscular Hemoglobin 29.2 pg (27.0-33.0); Mean Corpuscular Volume 85.2 fL (80.0-98.0); Mean Platelet Volume 9.4 fL (9.4-12.4); Monocytes Absolute Auto 0.4 X10*3/uL (0.1-1.2); Neutrophils Percent Auto 67.6 % (45-73); Platelet Count 239 X10*3/uL (160-400); Red Blood Count 4.73 X10*6/uL (4.60-5.80); Red Cell Distribution Width 11.8 % (11.0-16.0); White Blood Count 5.8 X10*3/uL (4.8-10.8)
[2022-04-26 22:43] LABS: Anion Gap 14 (12-20); Blood Urea Nitrogen 12 mg/dL (9-16); Calcium 9.6 mg/dL (8.4-10.2); Carbon Dioxide 28 mmol/L (22-29); Chloride 105 mmol/L (96-108); Creatinine Clr Calc Pharmacy 96.4; Estimated Glomerular Filt Rate > 60; Glucose Random 97 mg/dL (60-115); Magnesium 2.1 mg/dL (1.6-2.6); Potassium 4.7 mmol/L (3.3-5.1); Sodium 142 mmol/L (135-145)
== END 2022-04-26 23:24 | disposition home or self-care (01) ==
PROVIDERS: Emergency Provider Emergency Medicine; PCP Internal Medicine
DX: R07.89 Other chest pain (principal); R00.2 Palpitations; R42 Dizziness and giddiness; F41.1 Generalized anxiety disorder; F43.0 Acute stress reaction; Z79.899 Other long term (current) drug therapy
CPT/HCPCS: 36415; 80048; 83735; 84484; 85025; 93005; 99283

== ENCOUNTER 2022-04-28 03:03 | Emergency (ER) | payer OTHER, SELFPAY ==
[2022-04-28 03:10] VITALS: BP 137/68; PULSE 63; RESP 12; TEMP 36.6; O2SAT 97; BMI 26.6
--- NOTE | 2022-04-28 03:14 | ECG_ITS ---
Test Reason : cp Blood Pressure : / mmHG Vent. Rate : 061 BPM Atrial Rate : 061 BPM P-R Int : 132 ms QRS Dur : 086 ms QT Int : 408 ms P-R-T Axes : 060 042 022 degrees QTc Int : 410 ms Normal sinus rhythm Normal ECG When compared with ECG of 26-APR-2022 21:35, No significant change was found Referred By: Generic ED Physician Electronically Signed By:CHU DEVLIN
--- NOTE | 2022-04-28 03:19 | ED_ITS ---
HPI - Chest Pain General Chief Complaint: Chest Pain Stated Complaint: diff breathing, chest pain Time Seen by Provider: 04/28/22 03:19 Source: patient Mode of arrival: ambulatory Limitations: no limitations History of Present Illness HPI narrative: patient with cardiac work up, out patient holter, has had imaging. all normal. Patient states he has a therapist and psychiatrist. patient refuses to feel this is anxiety. patient is refusing to take his psychiatric medication complaint: chest pain Onset (ago): month(s) Timing of current episode: episodic Prior episodes: Yes Onset: during rest Pain radiation: none Severity: mild Quality: tightness Related Data Home Medications Medication Instructions Recorded Confirmed baclofen 10 mg tablet 10 mg PO TID 06/04/20 04/22/22 bupropion HCl 150 mg 24 hr tablet, 150 mg PO QAM 06/04/20 04/22/22 extended release cetirizine 10 mg tablet 10 mg PO DAILY 06/04/20 04/22/22 mirtazapine 30 mg tablet 30 mg PO BEDTIME 01/07/22 01/07/22 sertraline 100 mg tablet 100 mg PO DAILY 01/07/22 01/07/22 sertraline 50 mg tablet 50 mg PO DAILY 01/07/22 01/07/22 buprenorphine 2 mg-naloxone 0.5 mg 0 film sublingual 04/14/22 04/22/22 sublingual film mirtazapine 15 mg tablet 15 mg PO BEDTIME 04/14/22 04/22/22 hydrocortisone 2.5 % topical cream topical BID 04/22/22 04/22/22 with perineal applicator naloxone 4 mg/actuation nasal spray 0 spray intranasal 04/22/22 04/22/22 Previous Rx's Medication Instructions Recorded hydroxyzine HCl 25 mg tablet 25 mg PO TID PRN anxiety #30 tabs 09/29/21 phenazopyridine 100 mg tablet 100 mg PO BID 6 doses #6 tabs 02/19/22 hydroxyzine HCl 25 mg tablet 25 mg PO BID PRN anxiety #30 tabs 02/20/22 hydroxyzine HCl 50 mg tablet 50 mg PO BEDTIME #14 tabs 04/06/22 ibuprofen 600 mg tablet 600 mg PO Q6H PRN pain #20 tabs 04/19/22 fluticasone propionate 110 2 puff inhalation DAILY 30 days 04/22/22 mcg/actuation HFA aerosol inhaler #12 grams (Flovent HFA) omeprazole 40 mg capsule,delayed 40 mg PO DAILY 30 days #30 caps 04/22/22 release hydroxyzine HCl 50 mg tablet 50 mg PO BEDTIME PRN sleep #20 tabs 04/26/22 Allergies Allergy/AdvReac Type Severity Reaction Status Date / Time shellfish Allergy Unknown rash Uncoded 04/26/22 21:46 Review of Systems Constitutional: Constitutional: Reports no additional constitutional complaints Eyes: Eyes: Reports no additional eye complaints ENT: Denies dizziness Cardiovascular: Cardiovascular: Reports no additional cardiovascular complaints Respiratory: Respiratory: Reports as per HPI Gastrointestinal: Gastrointestinal: Reports no additional gastrointestinal complaints Musculoskeletal: Musculoskeletal: Reports no additional musculoskeletal complaints Integumentary/Breasts: Skin/Breast: Denies rash Neurologic: Reports system reviewed and no additional complaints, except as documented, Denies dizziness and Denies Sensory deficit (Neuro) Psychiatric: Psychiatric: Denies anxiety [facility] Past Medical History Medical History Anxiety 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 Mother No problems noted. Paternal Aunt Lung cancer Social History Social History Alcohol intake: never Patient Tobacco Use Status: Never used Tobacco e-Cigarette/Vaping Use: Currently Using Advance Directives: No Advance Directives Information Provided: No Physical Exam Vital Signs: Vital Signs: Last Vital Signs Temp 98.0 F 04/28/22 04:00 Pulse 53 04/28/22 04:00 Resp 16 04/28/22 04:00 BP 120/56 L 04/28/22 04:00 Pulse Ox 97 04/28/22 04:00 O2 Del Method 04/28/22 04:00 BMI result Body Mass Index 26.6 Const: Other: anxious General: healthy appearing Nutritional Appearance: average body habitus Orientation/consciousness: oriented to person and patient oriented x3 Limitations: no limitations HEENT: Head: Yes normal to inspection Ears: external ears normal General nose exam: Normal external nose present Mouth: Normal oral and palatal mucosa present and oropharynx normal Throat: Yes posterior oropharynx normal Eyes: General: appearance normal, both eyes and all related structures Neck: Other: supple Neck: Yes normal visual inspection Chest: Chest palpation & inspection: normal inspection of the chest Resp: Auscultation: clear to auscultation bilaterally Cardio: Jugular venous distension: no JVD Rate: regular rate Rhythm: regular rhythm Heart sounds: S1 normal heart sound present and S2 normal heart sound present GI: Inspection: Yes normal to inspection Palpation (GI): Soft to palpation, nontender and No hepatosplenomegaly present Auscultation: normal bowel sounds : General: Yes no CVA tenderness Back/Spine/Pelvis: Back: no CVA tenderness Skin: General skin exam: no rashes or lesions noted Neuro: General: oriented to person and patient oriented x3 Cranial nerves: Yes CN's II-XII intact bilaterally Motor exam (neuro): 5/5 motor strength present throughout Sensory Exam: No Sensory deficit (Neuro) Extrem: General: Yes normal to inspection Psych: Other: anxious and agitated Course Reevaluation(s) Reevaluation #1: seen and cleared by crisis will discharge with anxiety Time: 05:13 MDM - Chest Pain Lab Data Result diagrams: 04/28/22 03:16 04/28/22 03:16 Labs: Lab Results 04/28/22 04/28/22 04/28/22 Range/Units 03:16 03:16 03:16 WBC 5.9 (4.8-10.8) X10*3/uL RBC 4.71 (4.60-5.80) X10*6/uL Hgb 13.6 L (14.0-18.0) g/dl Hct 40.0 L (42.0-52.0) % MCV 84.9 (80.0-98.0) fL MCH 28.9 (27.0-33.0) pg MCHC 34.0 (31.0-36.0) g/dl RDW 11.9 (11.0-16.0) % Plt Count 228 (160-400) X10*3/uL MPV 9.6 (9.4-12.4) fL Immature Gran % (Auto) 0.2 (0.0-0.4) % Neut % (Auto) 49.0 (45-73) % Lymph % (Auto) 39.5 (20-40) % [place] % (Auto) 7.7 (2-11) % Eos % (Auto) 2.2 (0-4) % Baso % (Auto) 1.4 (0-2) % Lymph # (Auto) 2.3 (1.2-4.9) X10*3/uL [place] # (Auto) 0.5 (0.1-1.2) X10*3/uL Eos # (Auto) 0.1 (0.0-0.4) X10*3/uL Baso # (Auto) 0.1 (0.0-0.2) X10*3/uL Abs Immat Gran (auto) 0.01 (0.00-0.03) X10*3/uL Absolute Neuts (auto) 2.9 (2.0-8.3) x10*3/uL Absolute Nucleated RBC 0.000 (0.0-0.012) X10*3/uL Nucleated RBC % (auto) 0.0 (0.0-0.2) /100WBC Sodium 142 (135-145) mmol/L Potassium 3.7 D (3.3-5.1) mmol/L Chloride 105 (96-108) mmol/L Carbon Dioxide 27 (22-29) mmol/L Anion Gap 14 (12-20) BUN 17 H (9-16) mg/dL Creatinine 0.97 (0.5-1.4) mg/dL Estim Creat Clear Calc 90.4 Estimated GFR > 60 Random Glucose 125 H (60-115) mg/dL Calcium 9.3 (8.4-10.2) mg/dL Troponin I High Sens 3.9 (<3.5-35.0) ng/L Ethyl Alcohol < 10 mg/dL ECG Data ECG #1: Attestation: I personally reviewed and interpreted this ECG as follows: Interpretation: sinus 60, no st or twave changes Discharge Plan Discharge Clinical Impression: Anxiety, Atypical chest pain Patient Disposition: Home, Self-Care Instructions: Anxiety (ED), Panic Attack (ED), Noncardiac Chest Pain (ED) Prescriptions: No Action hydroxyzine HCl 25 mg tablet 25 mg PO TID PRN (Reason: anxiety) Qty: 30 0RF hydroxyzine HCl 25 mg tablet 25 mg PO BID PRN (Reason: anxiety) Qty: 30 0RF phenazopyridine 100 mg tablet 100 mg PO BID Qty: 6 0RF hydroxyzine HCl 50 mg tablet 50 mg PO BEDTIME Qty: 14 0RF ibuprofen 600 mg tablet 600 mg PO Q6H PRN (Reason: pain) Qty: 20 0RF hydroxyzine HCl 50 mg tablet 50 mg PO BEDTIME PRN (Reason: sleep) Qty: 20 0RF cetirizine 10 mg tablet 10 mg PO DAILY bupropion HCl 150 mg tablet extended release 24 hr 150 mg PO QAM baclofen 10 mg tablet 10 mg PO TID sertraline 50 mg tablet 50 mg PO DAILY mirtazapine 30 mg tablet 30 mg PO BEDTIME sertraline 100 mg tablet 100 mg PO DAILY naloxone 4 mg/actuation spray,non-aerosol 0 spray intranasal hydrocortisone 2.5 % cream with perineal applicator topical BID fluticasone propionate [Flovent HFA] 110 mcg/actuation HFA aerosol inhaler 2 puff inhalation DAILY 30 Days Qty: 12 4RF omeprazole 40 mg capsule,delayed release(DR/EC) 40 mg PO DAILY 30 Days Qty: 30 3RF buprenorphine-naloxone 2-0.5 mg film 0 film sublingual mirtazapine 15 mg tablet 15 mg PO BEDTIME Referrals: Physician,Unknown J [Primary Care Provider] - 5 days
[2022-04-28 03:21] LABS: Basophils Absolute Auto 0.1 X10*3/uL (0.0-0.2); Basophils Percent Auto 1.4 % (0-2); Eosinophils Absolute Auto 0.1 X10*3/uL (0.0-0.4); Eosinophils Percent Auto 2.2 % (0-4); Hemoglobin 13.6 g/dl (14.0-18.0); Imm Gran Abs Auto 0.01 X10*3/uL (0.00-0.03); Imm Gran Pct Auto 0.2 % (0.0-0.4); Lymphocytes Absolute Auto 2.3 X10*3/uL (1.2-4.9); Lymphocytes Percent Auto 39.5 % (20-40); MANUAL DIFF FLAG NO; Mean Corpuscular Hemoglobin 28.9 pg (27.0-33.0); Mean Corpuscular Volume 84.9 fL (80.0-98.0); Mean Platelet Volume 9.6 fL (9.4-12.4); Monocytes Absolute Auto 0.5 X10*3/uL (0.1-1.2); Monocytes Percent Auto 7.7 % (2-11); Neutrophils Absolute Auto 2.9 x10*3/uL (2.0-8.3); Platelet Count 228 X10*3/uL (160-400); Red Blood Count 4.71 X10*6/uL (4.60-5.80); Red Cell Distribution Width 11.9 % (11.0-16.0); White Blood Count 5.9 X10*3/uL (4.8-10.8)
--- NOTE | 2022-04-28 03:36 | PC.NURSE ---
Online [facility] referral completed by this RN.
[2022-04-28 03:44] LABS: Anion Gap 14 (12-20); Blood Urea Nitrogen 17 mg/dL (9-16); Calcium 9.3 mg/dL (8.4-10.2); Carbon Dioxide 27 mmol/L (22-29); Chloride 105 mmol/L (96-108); Creatinine Clr Calc Pharmacy 90.4; Estimated Glomerular Filt Rate > 60; Ethanol < 10 mg/dL; Glucose Random 125 mg/dL (60-115); Potassium 3.7 mmol/L (3.3-5.1); Sodium 142 mmol/L (135-145)
[2022-04-28] MEDS: 0.9 % Sodium Chloride 1,000 ML 100 ML IVCONT (03:44)
[2022-04-28 03:51] LABS: Troponin-I High Sensitivity 3.9 ng/L (<3.5-35.0)
[2022-04-28 04:00] VITALS: BP 120/56; PULSE 53; RESP 16; TEMP 36.7; O2SAT 97
--- NOTE | 2022-04-28 05:16 | PC.NURSE ---
per dr padgett, fluids to infuse in ~1 hour, not @100ml/hr
[2022-04-28 05:18] VITALS: BP 109/46; PULSE 50; RESP 12; O2SAT 97
== END 2022-04-28 05:34 | disposition home or self-care (01) ==
PROVIDERS: Emergency Provider Emergency Medicine
DX: R07.89 Other chest pain (principal); R06.02 Shortness of breath; F41.1 Generalized anxiety disorder; F43.0 Acute stress reaction; Z79.899 Other long term (current) drug therapy
CPT/HCPCS: 36415; 80048; 82077; 84484; 85025; 93005; 96360; 96361; 99284

== ENCOUNTER 2022-05-06 15:44 | Outpatient (REF) | payer OTHER, SELFPAY ==
--- NOTE | ~2022-05-06 | XR_ITS ---
EXAMINATION: XR SHOULDER, LEFT CLINICAL INFORMATION: Pain COMPARISON: None TECHNIQUE: Four views of the left shoulder. FINDINGS: No fracture or dislocation. The glenohumeral joint is well aligned. The joint space is maintained. The acromioclavicular joint is intact. The visualized lung is clear. The visualized ribs are intact. XR/XR shoulder LT min 2V IMPRESSION: Normal left shoulder.
--- NOTE | ~2022-05-06 | XR_ITS ---
EXAMINATION: XR LUMBOSACRAL SPINE WITH OBLIQUES CLINICAL INFORMATION: Lumbago with left-sided sciatica. COMPARISON: 05/20/2016 TECHNIQUE: AP, both oblique, and lateral views of the lumbar spine. Lateral view of the lumbosacral junction. FINDINGS: There is no fracture or subluxation. Vertebral body height and alignment maintained. Disc spaces are maintained. The sacroiliac joints are well aligned. The posterior elements are intact. The sacrum is intact. Normal bowel gas pattern. XR/XR lumbar spine 4V min IMPRESSION: Normal appearance of the lumbar spine.
== END 2022-05-06 15:45 | disposition home or self-care (01) ==
LOC: HO.XRAY 15:44
PROVIDERS: Absent Provider Internal Medicine; PCP Internal Medicine; Visit Provider Emergency Medicine
DX: M25.512 Pain in left shoulder (principal); M54.42 Lumbago with sciatica, left side
CPT/HCPCS: 72110; 73030

== ENCOUNTER 2022-05-17 05:13 | Emergency (ER) | payer OTHER, SELFPAY ==
--- NOTE | ~2022-05-17 | XR_ITS ---
EXAMINATION: XR CHEST CLINICAL INFORMATION: Chest pain COMPARISON: 04/20/2022 TECHNIQUE: 2 views of the chest were obtained. FINDINGS: The lungs are clear with no focal consolidation. No evidence of pneumothorax, pulmonary edema, or pleural effusions. The cardiomediastinal silhouette is unremarkable. No acute osseous findings. XR/XR chest 2V IMPRESSION: No acute cardiopulmonary findings.
--- NOTE | 2022-05-17 05:26 | ECG_ITS ---
Test Reason : CHEST PAIN Blood Pressure : / mmHG Vent. Rate : 062 BPM Atrial Rate : 062 BPM P-R Int : 132 ms QRS Dur : 088 ms QT Int : 412 ms P-R-T Axes : 047 045 028 degrees QTc Int : 418 ms Normal sinus rhythm Normal ECG When compared with ECG of 28-APR-2022 03:00, No significant change was found Referred By: Generic ED Physician Electronically Signed By:CHU DEVLIN
[2022-05-17 05:30] VITALS: BP 127/75; PULSE 58; RESP 18; TEMP 36.5; O2SAT 98; BMI 25.8
--- NOTE | 2022-05-17 05:32 | PC.NURSE ---
pt a&o, no sob, pt able to ambulate with no distress. Ekg ordered and labs. Will continue to monitor.
[2022-05-17 05:53] LABS: Hematocrit 38.6 % (42.0-52.0); Hemoglobin 13.4 g/dl (14.0-18.0); Mean Corpuscular HGB Conc 34.7 g/dl (31.0-36.0); Mean Corpuscular Hemoglobin 29.5 pg (27.0-33.0); Mean Corpuscular Volume 84.8 fL (80.0-98.0); Mean Platelet Volume 9.4 fL (9.4-12.4); Platelet Count 201 X10*3/uL (160-400); Red Blood Count 4.55 X10*6/uL (4.60-5.80); Red Cell Distribution Width 11.8 % (11.0-16.0); White Blood Count 5.2 X10*3/uL (4.8-10.8)
[2022-05-17 06:09] LABS: Alanine Aminotransferase 40 U/L (0-40); Albumin Level 4.1 g/dL (3.5-5.0); Alkaline Phosphatase 64 U/L (39-117); Anion Gap 14 (12-20); Aspartate Amino Transferase 22 U/L (5-37); Bilirubin Total 0.5 mg/dL (0.0-1.0); Blood Urea Nitrogen 12 mg/dL (9-16); Calcium 8.7 mg/dL (8.4-10.2); Carbon Dioxide 27 mmol/L (22-29); Chloride 105 mmol/L (96-108); Creatinine Clr Calc Pharmacy 93.3; Estimated Glomerular Filt Rate > 60; Glucose Random 132 mg/dL (60-115); Potassium 3.9 mmol/L (3.3-5.1); Sodium 142 mmol/L (135-145); Total Protein 7.2 g/dL (6.5-8.0)
[2022-05-17 06:14] LABS: Troponin-I High Sensitivity 4.5 ng/L (<3.5-35.0)
--- NOTE | 2022-05-17 08:01 | ED_ITS ---
HPI - Chest Pain General Chief Complaint: Chest Pain Stated Complaint: chest pain, difficulty breathing Time Seen by Provider: 05/17/22 08:00 Source: patient Mode of arrival: ambulatory Limitations: no limitations History of Present Illness HPI narrative: 41-year-old male came in for multiple complaints today. Patient came in with few weeks of chest pain that patient had been worked up for in the past, patient appears very anxious, patient is worry of having heart attack, patient fully describing pain as constant pain for few weeks that affecting the whole entire chest with no radiation, patient also been c omplaining of sore throat that recently was diagnosed with strep throat patient finish course of antibiotic but think he has throat cancer, patient also is complaining of headache that is been persistent for few weeks. Patient declined SI or HI or hallucination. Related Data Home Medications Medication Instructions Recorded Confirmed baclofen 10 mg tablet 10 mg PO TID 06/04/20 04/22/22 bupropion HCl 150 mg 24 hr tablet, 150 mg PO QAM 06/04/20 04/22/22 extended release cetirizine 10 mg tablet 10 mg PO DAILY 06/04/20 04/22/22 mirtazapine 30 mg tablet 30 mg PO BEDTIME 01/07/22 01/07/22 sertraline 100 mg tablet 100 mg PO DAILY 01/07/22 01/07/22 sertraline 50 mg tablet 50 mg PO DAILY 01/07/22 01/07/22 buprenorphine 2 mg-naloxone 0.5 mg 0 film sublingual 04/14/22 04/22/22 sublingual film mirtazapine 15 mg tablet 15 mg PO BEDTIME 04/14/22 04/22/22 hydrocortisone 2.5 % topical cream topical BID 04/22/22 04/22/22 with perineal applicator naloxone 4 mg/actuation nasal spray 0 spray intranasal 04/22/22 04/22/22 Previous Rx's Medication Instructions Recorded hydroxyzine HCl 25 mg tablet 25 mg PO TID PRN anxiety #30 tabs 09/29/21 phenazopyridine 100 mg tablet 100 mg PO BID 6 doses #6 tabs 02/19/22 hydroxyzine HCl 25 mg tablet 25 mg PO BID PRN anxiety #30 tabs 02/20/22 hydroxyzine HCl 50 mg tablet 50 mg PO BEDTIME #14 tabs 04/06/22 ibuprofen 600 mg tablet 600 mg PO Q6H PRN pain #20 tabs 04/19/22 fluticasone propionate 110 2 puff inhalation DAILY 30 days 04/22/22 mcg/actuation HFA aerosol inhaler #12 grams (Flovent HFA) omeprazole 40 mg capsule,delayed 40 mg PO DAILY 30 days #30 caps 04/22/22 release hydroxyzine HCl 50 mg tablet 50 mg PO BEDTIME PRN sleep #20 tabs 04/26/22 Allergies Allergy/AdvReac Type Severity Reaction Status Date / Time shellfish Allergy Unknown rash Uncoded 04/26/22 21:46 Review of Systems Review of Systems: All other systems are reviewed and are negative Constitutional: Reports as per HPI and Reports no additional constitutional complaints Eyes: Reports as per HPI and Reports no additional eye complaints Reports system reviewed and no additional complaints, except as documented Cardiovascular: Reports as per HPI and Reports no additional cardiovascular complaints Respiratory: Reports as per HPI and Reports no additional respiratory complaints Gastrointestinal: Reports as per HPI and Reports no additional gastrointestinal complaints Genitourinary: Reports no additional female genitourinary complaints Musculoskeletal: Reports no additional musculoskeletal complaints Skin/Breast: Reports system reviewed and no additional complaints, except as docu Psychiatric: Reports no additional psychiatric complaints Endocrine: Reports no additional endocrine complaints Hematologic/Lymphatic: Reports no additional hematologic/lymphatic complaints Allergic/Immunologic: Reports no additional allergic/immunologic complaints Reports system reviewed and no additional complaints, except as documented and Reports Abnormal speech present [facility] Past Medical History Medical History Anxiety 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 Mother No problems noted. Paternal Aunt Lung cancer Social History Social History Alcohol intake: never Patient Tobacco Use Status: Never used Tobacco e-Cigarette/Vaping Use: Currently Using Advance Directives: No Advance Directives Information Provided: Yes Physical Exam Vital Signs: Vital Signs: Last Vital Signs Temp 97.7 F 05/17/22 05:30 Pulse 47 L 05/17/22 08:03 Resp 16 05/17/22 08:03 BP 125/78 05/17/22 08:03 Pulse Ox 98 05/17/22 08:03 O2 Del Method 05/17/22 08:03 BMI result Body Mass Index 25.8 Vital signs have been reviewed as appeared to be correct. Blood pressure normal. Heart rate normal. Respiration rate normal. Temperature normal. Oxygen saturation normal. Appearance: Anxious, Alert. Oriented X3. No acute distress. Head: Normal external exam. Normocephalic. Atraumatic. No Goode signs noted. No raccoon eyes noted Eyes: PERRLA. EOMI. Conjunctiva and sclera normal. Eyelids normal. ENT: TM's Normal. Pharynx normal. Uvula midline. Moist mucous membranes. No trismus noted. No drooling noted. No muffled voice noted. Neck: Normal inspection. Neck supple. FROM. No adenopathy. Thyroid Normal. No meningeal signs. No neck mass noted. CVS: Normal heart rate and rhythm. Heart sound normal. No murmurs noted. Pulses normal throughout. Respiratory: No respiratory distress. Painless inspiration. Breath sounds normal. No wheezes/rales/rhonchi noted. Chest nontender. No accessory muscle usage noted or decreased air movement noted. Abdomen: Soft and nontender. Bowel sounds normal in all 4 quadrants. No distention noted. No organomegaly noted. No visible injury noted. Back: No CVA tenderness. Full range of motion noted. Skin: Skin warm and dry. Normal skin color. Normal skin turgor. No rashes/lesions/lacerations noted. Extremities: No lower extremity edema. Extremities exhibit normal range of motion. Extremities nontender. Neuro: Oriented X 3. Cranial nerve exam: II-XII are grossly intact No motor deficit. No sensory deficit. Reflexes normal. Course Course Course Narrative: 41-year-old male appear very anxious and concerned about his general health, patient has unremarkable workup in the emergency department, HEART score is 0, patient also has a negative throat culture however patient just finished a whole course of antibiotic. Patient was advised to follow-up with ENT doctor and PCP. MDM - Chest Pain Medical Records Data Attestation: I reviewed the patient's medical records. Lab Data Attestation: I reviewed the patient's lab results. Result diagrams: 05/17/22 05:49 05/17/22 05:49 Labs: Lab Results 05/17/22 05/17/22 05/17/22 Range/Units 05:49 05:49 05:49 WBC 5.2 (4.8-10.8) X10*3/uL RBC 4.55 L (4.60-5.80) X10*6/uL Hgb 13.4 L (14.0-18.0) g/dl Hct 38.6 L (42.0-52.0) % MCV 84.8 (80.0-98.0) fL MCH 29.5 (27.0-33.0) pg MCHC 34.7 (31.0-36.0) g/dl RDW 11.8 (11.0-16.0) % Plt Count 201 (160-400) X10*3/uL MPV 9.4 (9.4-12.4) fL Absolute Nucleated RBC 0.000 (0.0-0.012) X10*3/uL Nucleated RBC % (auto) 0.0 (0.0-0.2) /100WBC Sodium 142 (135-145) mmol/L Potassium 3.9 (3.3-5.1) mmol/L Chloride 105 (96-108) mmol/L Carbon Dioxide 27 (22-29) mmol/L Anion Gap 14 (12-20) BUN 12 (9-16) mg/dL Creatinine 0.94 (0.5-1.4) mg/dL Estim Creat Clear Calc 93.3 Estimated GFR > 60 Random Glucose 132 H (60-115) mg/dL Calcium 8.7 D (8.4-10.2) mg/dL Total Bilirubin 0.5 (0.0-1.0) mg/dL AST 22 (5-37) U/L ALT 40 (0-40) U/L Alkaline Phosphatase 64 (39-117) U/L Troponin I High Sens 4.5 (<3.5-35.0) ng/L Total Protein 7.2 (6.5-8.0) g/dL Albumin 4.1 (3.5-5.0) g/dL Monoscreen (Negative) S. pyogenes GrpA SUKI (Negative) 05/17/22 05/17/22 Range/Units 08:33 08:35 WBC (4.8-10.8) X10*3/uL RBC (4.60-5.80) X10*6/uL Hgb (14.0-18.0) g/dl Hct (42.0-52.0) % MCV (80.0-98.0) fL MCH (27.0-33.0) pg MCHC (31.0-36.0) g/dl RDW (11.0-16.0) % Plt Count (160-400) X10*3/uL MPV (9.4-12.4) fL Absolute Nucleated RBC (0.0-0.012) X10*3/uL Nucleated RBC % (auto) (0.0-0.2) /100WBC Sodium (135-145) mmol/L Potassium (3.3-5.1) mmol/L Chloride (96-108) mmol/L Carbon Dioxide (22-29) mmol/L Anion Gap (12-20) BUN (9-16) mg/dL Creatinine (0.5-1.4) mg/dL Estim Creat Clear Calc Estimated GFR Random Glucose (60-115) mg/dL Calcium (8.4-10.2) mg/dL Total Bilirubin (0.0-1.0) mg/dL AST (5-37) U/L ALT (0-40) U/L Alkaline Phosphatase (39-117) U/L Troponin I High Sens (<3.5-35.0) ng/L Total Protein (6.5-8.0) g/dL Albumin (3.5-5.0) g/dL Monoscreen Negative (Negative) S. pyogenes GrpA SUKI Negative (Negative) Imaging Data Chest x-ray: Attestation: I personally reviewed and interpreted this imaging study as follows: Radiologist's impression: No acute pathology. ECG Data ECG #1: Attestation: I personally reviewed and interpreted this ECG as follows: Interpretation: Normal sinus rhythm at 62 beats per minutes, normal axis deviation, normal intervals, no ST-T changes, no change from old EKG. Discharge Plan Discharge Clinical Impression: Anxiety, Chronic sore throat, Non-cardiac chest pain Patient Disposition: Home, Self-Care Instructions: Anxiety (ED) Prescriptions: No Action hydroxyzine HCl 25 mg tablet 25 mg PO TID PRN (Reason: anxiety) Qty: 30 0RF hydroxyzine HCl 25 mg tablet 25 mg PO BID PRN (Reason: anxiety) Qty: 30 0RF phenazopyridine 100 mg tablet 100 mg PO BID Qty: 6 0RF hydroxyzine HCl 50 mg tablet 50 mg PO BEDTIME Qty: 14 0RF ibuprofen 600 mg tablet 600 mg PO Q6H PRN (Reason: pain) Qty: 20 0RF hydroxyzine HCl 50 mg tablet 50 mg PO BEDTIME PRN (Reason: sleep) Qty: 20 0RF cetirizine 10 mg tablet 10 mg PO DAILY bupropion HCl 150 mg tablet extended release 24 hr 150 mg PO QAM baclofen 10 mg tablet 10 mg PO TID sertraline 50 mg tablet 50 mg PO DAILY mirtazapine 30 mg tablet 30 mg PO BEDTIME sertraline 100 mg tablet 100 mg PO DAILY naloxone 4 mg/actuation spray,non-aerosol 0 spray intranasal hydrocortisone 2.5 % cream with perineal applicator topical BID fluticasone propionate [Flovent HFA] 110 mcg/actuation HFA aerosol inhaler 2 puff inhalation DAILY 30 Days Qty: 12 4RF omeprazole 40 mg capsule,delayed release(DR/EC) 40 mg PO DAILY 30 Days Qty: 30 3RF buprenorphine-naloxone 2-0.5 mg film 0 film sublingual mirtazapine 15 mg tablet 15 mg PO BEDTIME Referrals: Rik Flaherty MD [Primary Care Provider] - Arsen Salazar [Physician] -
[2022-05-17 08:03] VITALS: BP 125/78; PULSE 47; RESP 16; O2SAT 98
[2022-05-17 08:52] LABS: Strep A Nucleic Acid Negative (Negative)
[2022-05-17 09:34] LABS: Monotest Negative (Negative)
== END 2022-05-17 10:27 | disposition home or self-care (01) ==
PROVIDERS: Emergency Provider Emergency Medicine; PCP Internal Medicine
DX: F41.1 Generalized anxiety disorder (principal); F43.0 Acute stress reaction; J02.9 Acute pharyngitis, unspecified; R07.89 Other chest pain; R06.02 Shortness of breath; Z79.899 Other long term (current) drug therapy; Z20.822 Contact with and (suspected) exposure to COVID-19
CPT/HCPCS: 36415; 71046; 80053; 84484; 85027; 86308; 87651; 93005; 99284

== ENCOUNTER → 2022-05-27 12:50 | Outpatient (REF) | payer OTHER, SELFPAY | LOC: HO.SL 12:50 | PROVIDERS: PCP Internal Medicine; Visit Provider Hospitalist | DX: G47.33 Obstructive sleep apnea (adult) (pediatric) (principal) | CPT/HCPCS: 95806 ==

== ENCOUNTER 2022-05-30 00:17 | Emergency (ER) | payer OTHER, SELFPAY ==
[2022-05-30 00:49] VITALS: BP 130/74; PULSE 64; RESP 16; TEMP 36.5; O2SAT 98; BMI 27.4
[2022-05-30 02:32] LABS: Strep A Nucleic Acid Negative (Negative)
[2022-05-30 02:33] LABS: COVID-19 Test Negative (Negative); IDNOW Serial# 16C4AD1C
== END 2022-05-30 04:53 | disposition left against medical advice (07) ==
PROVIDERS: Emergency Medicine; Emergency Provider Emergency Medicine; PCP Internal Medicine
DX: J02.9 Acute pharyngitis, unspecified (principal); Z20.822 Contact with and (suspected) exposure to COVID-19
CPT/HCPCS: 87635; 87651; 99281; 99283

== ENCOUNTER 2022-05-30 09:59 | Emergency (ER) | payer OTHER, SELFPAY ==
--- NOTE | ~2022-05-30 | XR_ITS ---
EXAMINATION: XR CHEST CLINICAL INFORMATION: Dizziness COMPARISON: Chest x-ray May 17, 2022 TECHNIQUE: 2 views of the chest were obtained. FINDINGS: Cardiac silhouette is normal in size. The lungs are well aerated. There is no lobar consolidation. No pleural effusion or pneumothorax. Minimal degenerative changes of the spine. XR/XR chest 2V IMPRESSION: No acute pulmonary pathology.
[2022-05-30 10:16] VITALS: BP 143/77; PULSE 68; RESP 17; TEMP 37.1; O2SAT 98; BMI 26.3
--- NOTE | 2022-05-30 11:11 | ED.GENADULT ---
HPI - General Adult General Chief complaint: Neck Pain/Injury Stated complaint: Diff breathing,dizzy Time Seen by Provider: 05/30/22 10:22 Source: patient Mode of arrival: ambulatory Limitations: no limitations History of Present Illness HPI narrative: 41-year-old male with history of COVID-19 in September of this year with post COVID syndrome, opiate use disorder on Suboxone, anxiety, who presents to the ER for evaluation of ongoing shortness of breath since September as well as 3 weeks of dizziness, increased nasal congestion, bilateral ear pain, headaches. He recently had strep throat and was treated with antibiotics with brief improvement in some throat pain. He reports he recently saw an digital marketing specialist who performed a scope and reported no abnormalities. He feels like something is stuck in his throat and he feels like his lymph nodes in his jaw neck or swollen. He reports dizziness when he vigorously shakes his head back and forth. He reports pounding palpitations when he lays down and feeling like he is going to . He says he is anxious from all of these physical symptoms since COVID. He has had extensive workup with Cardiology, pulmonology, ENT. MD complaint: Dizziness, shortness of breath Onset (ago): week(s) (3) Location: head, face, mouth, neck and chest Severity: moderate Severity scale (1-10): 4 Quality: aching Pain Consistency: intermittent Relieving factors: none Exacerbating factors: movement and other (Lying down) Associated symptoms: headaches Treatments prior to arrival: none Related Data Home Medications Medication Instructions Recorded Confirmed baclofen 10 mg tablet 10 mg PO TID 06/04/20 04/22/22 bupropion HCl 150 mg 24 hr tablet, 150 mg PO QAM 06/04/20 04/22/22 extended release cetirizine 10 mg tablet 10 mg PO DAILY 06/04/20 04/22/22 mirtazapine 30 mg tablet 30 mg PO BEDTIME 01/07/22 01/07/22 sertraline 100 mg tablet 100 mg PO DAILY 01/07/22 01/07/22 sertraline 50 mg tablet 50 mg PO DAILY 01/07/22 01/07/22 buprenorphine 2 mg-naloxone 0.5 mg 0 film sublingual 04/14/22 04/22/22 sublingual film mirtazapine 15 mg tablet 15 mg PO BEDTIME 04/14/22 04/22/22 hydrocortisone 2.5 % topical cream topical BID 04/22/22 04/22/22 with perineal applicator naloxone 4 mg/actuation nasal spray 0 spray intranasal 04/22/22 04/22/22 Previous Rx's Medication Instructions Recorded hydroxyzine HCl 25 mg tablet 25 mg PO TID PRN anxiety #30 tabs 09/29/21 phenazopyridine 100 mg tablet 100 mg PO BID 6 doses #6 tabs 02/19/22 hydroxyzine HCl 25 mg tablet 25 mg PO BID PRN anxiety #30 tabs 02/20/22 hydroxyzine HCl 50 mg tablet 50 mg PO BEDTIME #14 tabs 04/06/22 ibuprofen 600 mg tablet 600 mg PO Q6H PRN pain #20 tabs 04/19/22 fluticasone propionate 110 2 puff inhalation DAILY 30 days 04/22/22 mcg/actuation HFA aerosol inhaler #12 grams (Flovent HFA) hydroxyzine HCl 50 mg tablet 50 mg PO BEDTIME PRN sleep #20 tabs 04/26/22 omeprazole 40 mg capsule,delayed 40 mg PO DAILY #90 caps 05/18/22 release fluticasone propionate 50 1 spray intranasal BID #16 grams 05/30/22 mcg/actuation nasal spray,suspension (Flonase Allergy Relief) levocetirizine 5 mg tablet (24HR 5 mg PO DAILY #30 tabs 05/30/22 Allergy Relief) levofloxacin 500 mg tablet 500 mg PO DAILY #10 tabs 05/30/22 Allergies Allergy/AdvReac Type Severity Reaction Status Date / Time shellfish Allergy Unknown rash Uncoded 04/26/22 21:46 Review of Systems Review of Systems: Constitutional: No Fever, No Chills ENT/Mouth: +sore throat, + Rhinorrhea, No Swallowing Difficulty, +Sinus pain Eyes: No Eye Pain, No Swelling, No Redness Cardiovascular: No Chest Pain, + SOB, + Orthopnea, No Edema Respiratory: No Cough, No Sputum, No Wheezing, + dyspnea Gastrointestinal: No Nausea, No Vomiting, No Diarrhea, No abdominal Pain Genitourinary: No Dysuria, No Urinary Frequency, No Hematuria Musculoskeletal: No joint pain, No Myalgias Skin: No Skin Lesions, No rash Neuro: No Weakness, No Numbness, + Dizziness, + Headache Psych: + Anxiety/Panic, No Depression Heme/Lymph: No Bruising, No Lymphadenopathy Endocrine: No Polyuria, No Polydipsia PMFSH Past Medical History Medical History Anxiety 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 Mother No problems noted. Paternal Aunt Lung cancer Social History Social History Alcohol intake: never Patient Tobacco Use Status: Never used Tobacco e-Cigarette/Vaping Use: Currently Using Advance Directives: No Advance Directives Information Provided: No Physical Exam ED Vital Signs: Vital Signs - 24 hr 05/30/22 10:16 Temperature 98.7 F Pulse Rate 68 Respiratory Rate 17 Blood Pressure 143/77 H Pulse Oximetry 98 Oxygen Delivery Method Room Air BMI result Body Mass Index 26.3 Appearance: Alert. Oriented X3. No acute distress. Eyes: Pupils equal, round and reactive to light. ENT: Pharynx normal. Tonsils are normal commonly uvula midline, normal voice, handling secretions normally. Bilateral tympanic membranes with effusions, no bulging or erythema Neck: Normal inspection. Neck supple. Tenderness submandibularly with no palpable lymphadenopathy CVS: Normal heart rate and rhythm. Pulses normal. Respiratory: No respiratory distress. Breath sounds normal. Abdomen: Soft and nontender. +BS x4 Skin: Skin warm and dry. Normal skin color. Normal skin turgor. No rashes. Extremities: No lower extremity edema. No calf tenderness Neuro: Oriented X 3. No motor deficit. No sensory deficit. Course Course Course Narrative: 41-year-old male with history of COVID-19 in September 2021, post COVID syndrome, DELFINO, substance abuse disorder on Suboxone, anxiety who presents to the ER for evaluation of 3 weeks of dizziness, ear pain, sinus pain, nasal congestion, and ongoing shortness of breath since September. Patient has had extensive workup including an echocardiogram, cardiac stress test, CTA that ruled out PE, evaluation by digital marketing specialist as well as pipe smoking machine offbearer and supervisor hand workers. Workup has been benign. Patient has ongoing symptoms and is anxious due to this. No improvement with hydroxyzine. He has had several emergency room visits this year for these complaints. On examination patient does have bilateral effusions with sinus pressure and sinus tenderness in the maxillary area. His nasal turbinates are erythematous. This could be sinusitis. His symptoms were going on for 3 weeks. He completed a course of Augmentin recently for strep throat. Will increase to fluoroquinolone and have him follow back up with ENT. He is stable for discharge home with antibiotics, nasal spray, allergy medication. Encourage follow-up with his PCP as well. Stable for discharge home. Discharge Plan Discharge Clinical Impression: Sinusitis, Anxiety Patient Disposition: Home, Self-Care Instructions: Sinusitis (ED), Anxiety (ED) Additional Instructions: Your x-ray today was normal. Take the prescribed antibiotics as directed, complete the entire course. Use the prescribed intranasal steroid to help decrease inflammation and swelling. Start the prescribed allergy medication as well. Recommend following up with your primary care doctor this week. If you develop new or worsening symptoms call 911 or come back to the ER for further evaluation. Prescriptions: New levofloxacin 500 mg tablet 500 mg PO DAILY Qty: 10 0RF fluticasone propionate [Flonase Allergy Relief] 50 mcg/actuation spray,suspension 1 spray intranasal BID Qty: 16 0RF Rx Instructions: administer into each nostril levocetirizine [24HR Allergy Relief] 5 mg tablet 5 mg PO DAILY Qty: 30 0RF No Action omeprazole 40 mg capsule,delayed release(DR/EC) 40 mg PO DAILY Qty: 90 1RF hydroxyzine HCl 25 mg tablet 25 mg PO TID PRN (Reason: anxiety) Qty: 30 0RF hydroxyzine HCl 25 mg tablet 25 mg PO BID PRN (Reason: anxiety) Qty: 30 0RF phenazopyridine 100 mg tablet 100 mg PO BID Qty: 6 0RF hydroxyzine HCl 50 mg tablet 50 mg PO BEDTIME Qty: 14 0RF ibuprofen 600 mg tablet 600 mg PO Q6H PRN (Reason: pain) Qty: 20 0RF hydroxyzine HCl 50 mg tablet 50 mg PO BEDTIME PRN (Reason: sleep) Qty: 20 0RF cetirizine 10 mg tablet 10 mg PO DAILY bupropion HCl 150 mg tablet extended release 24 hr 150 mg PO QAM baclofen 10 mg tablet 10 mg PO TID sertraline 50 mg tablet 50 mg PO DAILY mirtazapine 30 mg tablet 30 mg PO BEDTIME sertraline 100 mg tablet 100 mg PO DAILY naloxone 4 mg/actuation spray,non-aerosol 0 spray intranasal hydrocortisone 2.5 % cream with perineal applicator topical BID fluticasone propionate [Flovent HFA] 110 mcg/actuation HFA aerosol inhaler 2 puff inhalation DAILY 30 Days Qty: 12 4RF buprenorphine-naloxone 2-0.5 mg film 0 film sublingual mirtazapine 15 mg tablet 15 mg PO BEDTIME Referrals: Rik Flaherty MD [Primary Care Provider] -
== END 2022-05-30 11:40 | disposition home or self-care (01) ==
PROVIDERS: Emergency Provider Emergency Medicine; PCP Internal Medicine
DX: J32.0 Chronic maxillary sinusitis (principal); F41.9 Anxiety disorder, unspecified; R06.02 Shortness of breath
CPT/HCPCS: 71046; 99283

== ENCOUNTER 2022-06-06 01:12 | Emergency (ER) | payer OTHER, SELFPAY ==
[2022-06-06 01:22] VITALS: BP 130/77; PULSE 68; O2SAT 96
[2022-06-06 02:21] VITALS: BP 130/61; PULSE 75; RESP 16; TEMP 37.4; O2SAT 97; BMI 26.6
--- NOTE | 2022-06-06 03:39 | PC.NURSE ---
pt not in waiting room and was seen by staff walking out. steady gait.
== END 2022-06-06 03:40 | disposition left against medical advice (07) ==
PROVIDERS: Emergency Provider Emergency Medicine
DX: F41.9 Anxiety disorder, unspecified (principal)
CPT/HCPCS: 99281

== ENCOUNTER → 2022-06-12 12:47 | Outpatient (BNVA) | payer OTHER, SELFPAY | PROVIDERS: Visit Provider Hospitalist | DX: R06.02 Shortness of breath (principal); U09.9 Post COVID-19 condition, unspecified; R00.2 Palpitations; J31.0 Chronic rhinitis; J32.9 Chronic sinusitis, unspecified; J34.2 Deviated nasal septum | CPT/HCPCS: 99212 ==

== ENCOUNTER → 2022-06-17 14:20 | Outpatient (BNVA) | payer OTHER, SELFPAY | PROVIDERS: PCP Internal Medicine; Referring Provider Internal Medicine; Visit Provider Surgery | DX: N50.82 Scrotal pain (principal) | CPT/HCPCS: 99202 ==

== ENCOUNTER 2022-06-29 04:53 | Emergency (ER) | payer OTHER, SELFPAY ==
--- NOTE | 2022-06-29 04:56 | ECG_ITS ---
Test Reason : CHEST PAIN Blood Pressure : / mmHG Vent. Rate : 074 BPM Atrial Rate : 074 BPM P-R Int : 128 ms QRS Dur : 086 ms QT Int : 380 ms P-R-T Axes : 061 052 024 degrees QTc Int : 421 ms Normal sinus rhythm Normal ECG When compared with ECG of 17-MAY-2022 05:31, No significant change was found Referred By: Generic ED Physician Electronically Signed By:KIMBERLEE BOND MD
[2022-06-29 05:16] LABS: Hematocrit 37.5 % (42.0-52.0); Hemoglobin 12.8 g/dl (14.0-18.0); Mean Corpuscular HGB Conc 34.1 g/dl (31.0-36.0); Mean Corpuscular Volume 84.8 fL (80.0-98.0); Mean Platelet Volume 9.3 fL (9.4-12.4); Platelet Count 208 X10*3/uL (160-400); Red Blood Count 4.42 X10*6/uL (4.60-5.80); Red Cell Distribution Width 12.1 % (11.0-16.0); White Blood Count 5.1 X10*3/uL (4.8-10.8)
[2022-06-29 05:27] VITALS: BP 137/71; PULSE 78; RESP 18; TEMP 36.9; O2SAT 97; BMI 25.5
[2022-06-29 05:31] LABS: COVID-19 Test Negative (Negative)
[2022-06-29 05:37] LABS: Troponin-I High Sensitivity 4.4 ng/L (<3.5-35.0)
[2022-06-29 05:41] LABS: Alanine Aminotransferase 54 U/L (0-40); Albumin Level 4.2 g/dL (3.5-5.0); Alkaline Phosphatase 64 U/L (39-117); Anion Gap 16 (12-20); Aspartate Amino Transferase 35 U/L (5-37); Bilirubin Total 0.4 mg/dL (0.0-1.0); Blood Urea Nitrogen 12 mg/dL (9-16); Calcium 8.9 mg/dL (8.4-10.2); Carbon Dioxide 24 mmol/L (22-29); Chloride 105 mmol/L (96-108); Creatinine Clr Calc Pharmacy 103.2; Estimated Glomerular Filt Rate > 60; Glucose Random 113 mg/dL (60-115); Potassium 3.5 mmol/L (3.3-5.1); Sodium 141 mmol/L (135-145); Total Protein 7.2 g/dL (6.5-8.0)
== END 2022-06-29 08:30 | disposition left against medical advice (07) ==
PROVIDERS: Student in an Organized Health Care Education/Training Program; Emergency Provider Emergency Medicine
DX: R07.9 Chest pain, unspecified (principal); Z20.822 Contact with and (suspected) exposure to COVID-19
CPT/HCPCS: 36415; 80053; 84484; 85027; 87635; 93005; 99283

== ENCOUNTER 2022-07-19 05:27 | Emergency (ER) | payer OTHER, SELFPAY ==
--- NOTE | ~2022-07-19 | XR_ITS ---
EXAMINATION: XR CHEST CLINICAL INFORMATION: Chest pain COMPARISON: May 30, 2022 TECHNIQUE: 2 views of the chest were obtained. FINDINGS: No significant abnormality is noted involving the heart, lungs, mediastinum, bony thorax or soft tissues. XR/XR chest 2V IMPRESSION: No acute disease.
[2022-07-19 05:51] VITALS: BP 133/76; PULSE 61; RESP 16; TEMP 36.4; O2SAT 99; BMI 26.2
[2022-07-19 06:00] VITALS: BP 139/72; PULSE 59; RESP 12; TEMP 36.7; O2SAT 97
--- NOTE | 2022-07-19 06:10 | PC.NURSE ---
Pt states he feels pressure around his neck and on his chest. He denies feeling anxious.
--- NOTE | 2022-07-19 06:15 | PC.NURSE ---
Pt is sitting in bed, no signs of any distress. Will continue to monitor
--- NOTE | 2022-07-19 06:56 | ECG_ITS ---
Test Reason : CHEST PAIN Blood Pressure : / mmHG Vent. Rate : 051 BPM Atrial Rate : 051 BPM P-R Int : 150 ms QRS Dur : 090 ms QT Int : 426 ms P-R-T Axes : 061 055 020 degrees QTc Int : 392 ms Sinus bradycardia Otherwise normal ECG When compared with ECG of 19-JUL-2022 05:34, No significant change was found Referred By: Dot Mejia Electronically Signed By:KIMBERLEE BOND MD
--- NOTE | 2022-07-19 06:57 | ED.CHESTPAIN ---
HPI - Chest Pain General Chief Complaint: Chest Pain Stated Complaint: CHEST HURST DIFF BREATING SWOLLEN THROAT Time Seen by Provider: 07/19/22 06:45 Source: patient Mode of arrival: ambulatory Limitations: no limitations History of Present Illness HPI narrative: 41-year-old male came in for evaluation of throat pain and chest pain. Presented with feeling swelling in his throat for the past 10 months, patient had full workup by his PCP including ENT evaluation and endoscopic evaluation by ENT as reported by the patient with no significant abnormalities was found, patient also presented to [facility] had CT of the neck which showed patent airway with no acute pathology except few lymphadenopathy. Patient has a subjective feeling of sore throat and swelling in his throat however no difficulty breathing, no voice change, no loss of weight. Patient today is feeling pressure on his chest started few days ago does not define the pressure as the pain and including the whole entire chest, no radiation, no difficulty breathing, no fever, no chills. Related Data Home Medications Medication Instructions Recorded Confirmed baclofen 10 mg tablet 10 mg PO TID 06/04/20 06/17/22 bupropion HCl 150 mg 24 hr tablet, 150 mg PO QAM 06/04/20 06/17/22 extended release sertraline 100 mg tablet 100 mg PO DAILY 01/07/22 06/17/22 sertraline 50 mg tablet 50 mg PO DAILY 01/07/22 06/17/22 mirtazapine 15 mg tablet 15 mg PO BEDTIME 04/14/22 06/17/22 hydrocortisone 2.5 % topical cream topical BID 04/22/22 06/17/22 with perineal applicator naloxone 4 mg/actuation nasal spray 0 spray intranasal 04/22/22 06/17/22 buprenorphine 8 mg-naloxone 2 mg 10 mg sublingual DAILY 06/12/22 06/17/22 sublingual film Previous Rx's Medication Instructions Recorded phenazopyridine 100 mg tablet 100 mg PO BID 6 doses #6 tabs 02/19/22 hydroxyzine HCl 25 mg tablet 25 mg PO BID PRN anxiety #30 tabs 02/20/22 hydroxyzine HCl 50 mg tablet 50 mg PO BEDTIME #14 tabs 04/06/22 ibuprofen 600 mg tablet 600 mg PO Q6H PRN pain #20 tabs 04/19/22 hydroxyzine HCl 50 mg tablet 50 mg PO BEDTIME PRN sleep #20 tabs 04/26/22 omeprazole 40 mg capsule,delayed 40 mg PO DAILY #90 caps 05/18/22 release fluticasone propionate 50 1 spray intranasal BID #16 grams 05/30/22 mcg/actuation nasal spray,suspension (Flonase Allergy Relief) levocetirizine 5 mg tablet (24HR 5 mg PO DAILY #30 tabs 05/30/22 Allergy Relief) budesonide-formoterol HFA 160 2 puff inhalation BID 30 days 06/12/22 mcg-4.5 mcg/actuation aerosol #10.2 grams inhaler (Symbicort) pseudoephedrine HCl 120 mg 120 mg PO Q12H 30 days #60 tabs 06/12/22 tablet,extended release Allergies Allergy/AdvReac Type Severity Reaction Status Date / Time shellfish Allergy Unknown rash Uncoded 06/17/22 14:32 Review of Systems Review of Systems: All other systems are reviewed and are negative Constitutional: Reports as per HPI and Reports no additional constitutional complaints Eyes: Reports as per HPI and Reports no additional eye complaints Reports system reviewed and no additional complaints, except as documented Cardiovascular: Reports as per HPI and Reports no additional cardiovascular complaints Respiratory: Reports as per HPI and Reports no additional respiratory complaints Gastrointestinal: Reports as per HPI and Reports no additional gastrointestinal complaints Genitourinary: Reports no additional female genitourinary complaints Musculoskeletal: Reports no additional musculoskeletal complaints Skin/Breast: Reports system reviewed and no additional complaints, except as docu Psychiatric: Reports no additional psychiatric complaints Endocrine: Reports no additional endocrine complaints Hematologic/Lymphatic: Reports no additional hematologic/lymphatic complaints Allergic/Immunologic: Reports no additional allergic/immunologic complaints Reports system reviewed and no additional complaints, except as documented and Reports Abnormal speech present [facility] Past Medical History Medical History Anxiety COVID-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 Mother No problems noted. Paternal Aunt Lung cancer Social History Social History Alcohol intake: never Patient Tobacco Use Status: Former Tobacco user Tobacco use type: Cigarette Years Smoked: 23 Years Smoked in Last 30 Days: No e-Cigarette/Vaping Use: Currently Using Use of substances other than those prescribed or required for medical reasons: No Advance Directives: No Physical Exam Vital Signs: Vital Signs: Last Vital Signs Temp 98.0 F 07/19/22 06:00 Pulse 56 07/19/22 08:30 Resp 14 07/19/22 08:30 BP 150/90 H 07/19/22 08:30 Pulse Ox 98 07/19/22 08:30 O2 Del Method 07/19/22 08:30 BMI result Body Mass Index 26.2 vital signs have been reviewed as appeared to be correct. Blood pressure normal. Heart rate normal. Respiration rate normal. Temperature normal. Oxygen saturation normal. Appearance: Alert. Oriented X3. No acute distress. Head: Normal external exam. Normocephalic. Atraumatic. No Goode signs noted. No raccoon eyes noted Eyes: PERRLA. EOMI. Conjunctiva and sclera normal. Eyelids normal. ENT: TM's Normal. Pharynx normal. Uvula midline. Moist mucous membranes. No trismus noted. No drooling noted. No muffled voice noted. Neck: Normal inspection. Neck supple. FROM. No adenopathy. Thyroid Normal. No meningeal signs. No neck mass noted. CVS: Normal heart rate and rhythm. Heart sound normal. No murmurs noted. Pulses normal throughout. Respiratory: No respiratory distress. Painless inspiration. Breath sounds normal. No wheezes/rales/rhonchi noted. Chest nontender. No accessory muscle usage noted or decreased air movement noted. Abdomen: Soft and nontender. Bowel sounds normal in all 4 quadrants. No distention noted. No organomegaly noted. No visible injury noted. Back: No CVA tenderness. Full range of motion noted. Skin: Skin warm and dry. Normal skin color. Normal skin turgor. No rashes/lesions/lacerations noted. Extremities: No lower extremity edema. Extremities exhibit normal range of motion. Extremities nontender. Neuro: Oriented X 3. Cranial nerve exam: II-XII are grossly intact No motor deficit. No sensory deficit. Reflexes normal. Course Course Course Narrative: 41-year-old male came in with discomfort chest and neck pain started about 10 months ago, patient had ENT evaluation which was unremarkable as reported by the patient patient also had a recent CT of the neck done at [facility] which show no significance, patient had workup for chest pain today which was negative patient was reassured and instructed to follow-up with his PCP. MDM - Chest Pain Lab Data Attestation: I reviewed the patient's lab results. Result diagrams: 07/19/22 07:18 07/19/22 07:18 Labs: Lab Results 07/19/22 07/19/22 07/19/22 Range/Units 07:18 07:18 07:18 WBC 5.0 (4.8-10.8) X10*3/uL RBC 4.63 (4.60-5.80) X10*6/uL Hgb 13.4 L (14.0-18.0) g/dl Hct 39.3 L (42.0-52.0) % MCV 84.9 (80.0-98.0) fL MCH 28.9 (27.0-33.0) pg MCHC 34.1 (31.0-36.0) g/dl RDW 12.1 (11.0-16.0) % Plt Count 210 (160-400) X10*3/uL MPV 9.0 L (9.4-12.4) fL Immature Gran % (Auto) 0.2 (0.0-0.4) % Neut % (Auto) 36.8 L (45-73) % Lymph % (Auto) 48.0 H (20-40) % [place] % (Auto) 7.6 (2-11) % Eos % (Auto) 5.6 H (0-4) % Baso % (Auto) 1.8 (0-2) % Lymph # (Auto) 2.4 (1.2-4.9) X10*3/uL [place] # (Auto) 0.4 (0.1-1.2) X10*3/uL Eos # (Auto) 0.3 (0.0-0.4) X10*3/uL Baso # (Auto) 0.1 (0.0-0.2) X10*3/uL Abs Immat Gran (auto) 0.01 (0.00-0.03) X10*3/uL Absolute Neuts (auto) 1.8 L (2.0-8.3) x10*3/uL Absolute Nucleated RBC 0.000 (0.0-0.012) X10*3/uL Nucleated RBC % (auto) 0.0 (0.0-0.2) /100WBC Sodium 142 (135-145) mmol/L Potassium 4.8 D (3.3-5.1) mmol/L Chloride 105 (96-108) mmol/L Carbon Dioxide 29 (22-29) mmol/L Anion Gap 13 (12-20) BUN 14 (9-16) mg/dL Creatinine 0.84 (0.5-1.4) mg/dL Estim Creat Clear Calc 104.4 Estimated GFR > 60 Random Glucose 70 D (60-115) mg/dL Calcium 9.2 (8.4-10.2) mg/dL Total Bilirubin 0.6 (0.0-1.0) mg/dL Direct Bilirubin 0.2 (0.0-0.5) mg/dL AST 30 (5-37) U/L ALT 55 H (0-40) U/L Alkaline Phosphatase 64 (39-117) U/L Troponin I High Sens 4.4 (<3.5-35.0) ng/L Total Protein 7.0 (6.5-8.0) g/dL Albumin 4.1 (3.5-5.0) g/dL Lipase 17 (8-78) U/L Urine Color Urine Appearance Urine pH (5.0-9.0) Ur Specific [place] (1.005-1.025) Urine Protein (Neg-Trace) mg/dL Urine Glucose (UA) (Negative) mg/dL Urine Ketones (Negative) mg/dL Urine Blood (Negative) Urine Nitrite (Negative) Ur Leukocyte Esterase (Negative) 07/19/22 Range/Units 08:35 WBC (4.8-10.8) X10*3/uL RBC (4.60-5.80) X10*6/uL Hgb (14.0-18.0) g/dl Hct (42.0-52.0) % MCV (80.0-98.0) fL MCH (27.0-33.0) pg MCHC (31.0-36.0) g/dl RDW (11.0-16.0) % Plt Count (160-400) X10*3/uL MPV (9.4-12.4) fL Immature Gran % (Auto) (0.0-0.4) % Neut % (Auto) (45-73) % Lymph % (Auto) (20-40) % [place] % (Auto) (2-11) % Eos % (Auto) (0-4) % Baso % (Auto) (0-2) % Lymph # (Auto) (1.2-4.9) X10*3/uL [place] # (Auto) (0.1-1.2) X10*3/uL Eos # (Auto) (0.0-0.4) X10*3/uL Baso # (Auto) (0.0-0.2) X10*3/uL Abs Immat Gran (auto) (0.00-0.03) X10*3/uL Absolute Neuts (auto) (2.0-8.3) x10*3/uL Absolute Nucleated RBC (0.0-0.012) X10*3/uL Nucleated RBC % (auto) (0.0-0.2) /100WBC Sodium (135-145) mmol/L Potassium (3.3-5.1) mmol/L Chloride (96-108) mmol/L Carbon Dioxide (22-29) mmol/L Anion Gap (12-20) BUN (9-16) mg/dL Creatinine (0.5-1.4) mg/dL Estim Creat Clear Calc Estimated GFR Random Glucose (60-115) mg/dL Calcium (8.4-10.2) mg/dL Total Bilirubin (0.0-1.0) mg/dL Direct Bilirubin (0.0-0.5) mg/dL AST (5-37) U/L ALT (0-40) U/L Alkaline Phosphatase (39-117) U/L Troponin I High Sens (<3.5-35.0) ng/L Total Protein (6.5-8.0) g/dL Albumin (3.5-5.0) g/dL Lipase (8-78) U/L Urine Color Dark Yellow Urine Appearance Clear Urine pH 5.5 (5.0-9.0) Ur Specific [place] >= 1.030 H (1.005-1.025) Urine Protein Negative (Neg-Trace) mg/dL Urine Glucose (UA) Negative (Negative) mg/dL Urine Ketones Trace (Negative) mg/dL Urine Blood Negative (Negative) Urine Nitrite Negative (Negative) Ur Leukocyte Esterase Negative (Negative) Imaging Data Chest x-ray: Attestation: I personally reviewed and interpreted this imaging study as follows: My impression: No acute pathology. ECG Data ECG #1: Attestation: I personally reviewed and interpreted this ECG as follows: Interpretation: Sinus bradycardia at 51 beats per minutes, normal intervals, normal axis diffusion, no ST-T changes. Discharge Plan Discharge Clinical Impression: Chest pain Patient Disposition: Home, Self-Care Instructions: Chest Pain (DC) Prescriptions: No Action omeprazole 40 mg capsule,delayed release(DR/EC) 40 mg PO DAILY Qty: 90 1RF hydroxyzine HCl 25 mg tablet 25 mg PO BID PRN (Reason: anxiety) Qty: 30 0RF phenazopyridine 100 mg tablet 100 mg PO BID Qty: 6 0RF hydroxyzine HCl 50 mg tablet 50 mg PO BEDTIME Qty: 14 0RF ibuprofen 600 mg tablet 600 mg PO Q6H PRN (Reason: pain) Qty: 20 0RF hydroxyzine HCl 50 mg tablet 50 mg PO BEDTIME PRN (Reason: sleep) Qty: 20 0RF fluticasone propionate [Flonase Allergy Relief] 50 mcg/actuation spray,suspension 1 spray intranasal BID Qty: 16 0RF Rx Instructions: administer into each nostril levocetirizine [24HR Allergy Relief] 5 mg tablet 5 mg PO DAILY Qty: 30 0RF bupropion HCl 150 mg tablet extended release 24 hr 150 mg PO QAM baclofen 10 mg tablet 10 mg PO TID sertraline 50 mg tablet 50 mg PO DAILY sertraline 100 mg tablet 100 mg PO DAILY naloxone 4 mg/actuation spray,non-aerosol 0 spray intranasal hydrocortisone 2.5 % cream with perineal applicator topical BID buprenorphine-naloxone 8-2 mg film 10 mg sublingual DAILY budesonide-formoterol [Symbicort] 160-4.5 mcg/actuation HFA aerosol inhaler 2 puff inhalation BID 30 Days Qty: 10.2 11RF pseudoephedrine HCl 120 mg tablet extended release 120 mg PO Q12H 30 Days Qty: 60 1RF mirtazapine 15 mg tablet 15 mg PO BEDTIME Referrals: Rik Flaherty MD [Primary Care Provider] -
[2022-07-19 07:25] LABS: MANUAL DIFF FLAG NO
[2022-07-19 07:26] LABS: Basophils Absolute Auto 0.1 X10*3/uL (0.0-0.2); Basophils Percent Auto 1.8 % (0-2); Eosinophils Absolute Auto 0.3 X10*3/uL (0.0-0.4); Eosinophils Percent Auto 5.6 % (0-4); Hematocrit 39.3 % (42.0-52.0); Hemoglobin 13.4 g/dl (14.0-18.0); Imm Gran Abs Auto 0.01 X10*3/uL (0.00-0.03); Imm Gran Pct Auto 0.2 % (0.0-0.4); Lymphocytes Absolute Auto 2.4 X10*3/uL (1.2-4.9); Mean Corpuscular HGB Conc 34.1 g/dl (31.0-36.0); Mean Corpuscular Hemoglobin 28.9 pg (27.0-33.0); Mean Corpuscular Volume 84.9 fL (80.0-98.0); Monocytes Absolute Auto 0.4 X10*3/uL (0.1-1.2); Monocytes Percent Auto 7.6 % (2-11); Neutrophils Absolute Auto 1.8 x10*3/uL (2.0-8.3); Neutrophils Percent Auto 36.8 % (45-73); Platelet Count 210 X10*3/uL (160-400); Red Blood Count 4.63 X10*6/uL (4.60-5.80); Red Cell Distribution Width 12.1 % (11.0-16.0)
[2022-07-19 07:44] LABS: Alanine Aminotransferase 55 U/L (0-40); Albumin Level 4.1 g/dL (3.5-5.0); Alkaline Phosphatase 64 U/L (39-117); Anion Gap 13 (12-20); Aspartate Amino Transferase 30 U/L (5-37); Bilirubin Direct 0.2 mg/dL (0.0-0.5); Bilirubin Total 0.6 mg/dL (0.0-1.0); Blood Urea Nitrogen 14 mg/dL (9-16); Calcium 9.2 mg/dL (8.4-10.2); Carbon Dioxide 29 mmol/L (22-29); Chloride 105 mmol/L (96-108); Creatinine Clr Calc Pharmacy 104.4; Estimated Glomerular Filt Rate > 60; Glucose Random 70 mg/dL (60-115); Lipase 17 U/L (8-78); Potassium 4.8 mmol/L (3.3-5.1); Sodium 142 mmol/L (135-145)
[2022-07-19 07:49] LABS: Troponin-I High Sensitivity 4.4 ng/L (<3.5-35.0)
[2022-07-19 08:30] VITALS: BP 150/90; PULSE 56; RESP 14; O2SAT 98
[2022-07-19 08:42] LABS: Appearance Urine Clear; Color Urine Dark Yellow; Glucose Urine UA Negative (Negative); Leukocyte Esterase Urine Negative (Negative); Nitrite Urine Negative (Negative); PH 5.5 (5.0-9.0); Specific Gravity - Urine >= 1.030 (1.005-1.025); Urine Blood Negative (Negative); Urine Ketones Trace mg/dL (Negative); Urine Protein Negative (Neg-Trace)
[2022-07-19 10:00] VITALS: BP 142/70; PULSE 92; RESP 18; TEMP 36.8; O2SAT 99
--- NOTE | 2022-07-19 10:25 | PC.NURSE ---
patient a/ox4 . breathing even and unlabored . VSS . Went over discharge instructions as ordered by provider . patient to folowup with primary care . patient to return to [facility] if symptoms worsen . patient has no questions at this time .
== END 2022-07-19 10:28 | disposition home or self-care (01) ==
PROVIDERS: Emergency Provider Emergency Medicine; PCP Internal Medicine
DX: R07.89 Other chest pain (principal); Z87.891 Personal history of nicotine dependence; Z79.899 Other long term (current) drug therapy
CPT/HCPCS: 36415; 71046; 80048; 80076; 81003; 83690; 84484; 85025; 93005; 99284; 99285

== ENCOUNTER 2022-07-27 14:14 | Outpatient (REF) | payer OTHER, SELFPAY ==
--- NOTE | ~2022-07-27 | XR_ITS ---
EXAMINATION: XR PELVIS CLINICAL INFORMATION: Bilateral low back pain and bilateral thigh pain. COMPARISON: None TECHNIQUE: AP view of the pelvis. FINDINGS: There is normal symmetry of bilateral hip joints without any fracture or dislocation. There is a small enthesophyte along the right lateral acetabulum. The SI joints are symmetrical and unremarkable. No visible fracture or bony abnormality. The soft tissues are normal. There are small phleboliths in the pelvis. XR/XR pelvis 1-2V IMPRESSION: Mild degenerative changes right hip joint. The left hip joint is unremarkable.
== END 2022-07-27 14:15 | disposition home or self-care (01) ==
LOC: HO.XRAY 14:14
PROVIDERS: Absent Provider Internal Medicine; PCP Internal Medicine; Visit Provider Internal Medicine
DX: M54.50 Low back pain, unspecified (principal)
CPT/HCPCS: 72170

== ENCOUNTER 2022-07-31 18:57 | Emergency (ER) | payer OTHER, SELFPAY ==
--- NOTE | 2022-07-31 19:26 | ED_ITS ---
HPI - Male Genitourinary General Chief complaint: Urogenital-Male <Michelle Daley CNP - Last Filed: 07/31/22 19:33> Stated complaint: pain in private parts and rectal pain ,amanda legs <Michelle Daley CNP - Last Filed: 07/31/22 19:33> Time Seen by Provider: 07/31/22 21:49 <Michelle Daley CNP - Last Filed: 07/31/22 19:33> Source: patient <Hank Moy MD - Last Filed: 07/31/22 23:02> Mode of arrival: ambulatory <Hank Moy MD - Last Filed: 07/31/22 23:02> Limitations: no limitations <Hank Moy MD - Last Filed: 07/31/22 23:02> History of Present Illness HPI Narrative: Patient with multiple complaints complaining of pain in bilateral groin area the legs multiple days no urinary symptoms rectal pain was his PCP was started on naproxen no penile discharge no urinary complaints <Hank Moy MD - Last Filed: 07/31/22 23:02> Related Data Home medications: Home Medications Medication Instructions Recorded Confirmed baclofen 10 mg tablet 10 mg PO TID 06/04/20 06/17/22 bupropion HCl 150 mg 24 hr tablet, 150 mg PO QAM 06/04/20 06/17/22 extended release sertraline 100 mg tablet 100 mg PO DAILY 01/07/22 06/17/22 sertraline 50 mg tablet 50 mg PO DAILY 01/07/22 06/17/22 mirtazapine 15 mg tablet 15 mg PO BEDTIME 04/14/22 06/17/22 hydrocortisone 2.5 % topical cream topical BID 04/22/22 06/17/22 with perineal applicator naloxone 4 mg/actuation nasal spray 0 spray intranasal 04/22/22 06/17/22 buprenorphine 8 mg-naloxone 2 mg 10 mg sublingual DAILY 06/12/22 06/17/22 sublingual film Previous Rx's Medication Instructions Recorded phenazopyridine 100 mg tablet 100 mg PO BID 6 doses #6 tabs 02/19/22 hydroxyzine HCl 25 mg tablet 25 mg PO BID PRN anxiety #30 tabs 02/20/22 hydroxyzine HCl 50 mg tablet 50 mg PO BEDTIME #14 tabs 04/06/22 ibuprofen 600 mg tablet 600 mg PO Q6H PRN pain #20 tabs 04/19/22 hydroxyzine HCl 50 mg tablet 50 mg PO BEDTIME PRN sleep #20 tabs 04/26/22 omeprazole 40 mg capsule,delayed 40 mg PO DAILY #90 caps 05/18/22 release fluticasone propionate 50 1 spray intranasal BID #16 grams 05/30/22 mcg/actuation nasal spray,suspension (Flonase Allergy Relief) levocetirizine 5 mg tablet (24HR 5 mg PO DAILY #30 tabs 05/30/22 Allergy Relief) budesonide-formoterol HFA 160 2 puff inhalation BID 30 days 06/12/22 mcg-4.5 mcg/actuation aerosol #10.2 grams inhaler (Symbicort) pseudoephedrine HCl 120 mg 120 mg PO Q12H 30 days #60 tabs 06/12/22 tablet,extended release <Michelle Daley CNP - Last Filed: 07/31/22 19:33> Allergies/Adverse reactions: Allergies Allergy/AdvReac Type Severity Reaction Status Date / Time shellfish Allergy Unknown rash Uncoded 06/17/22 14:32 <Michelle Daley CNP - Last Filed: 07/31/22 19:33> Review of Systems Review of Systems: Yes all other systems are reviewed and are negative <Hank Moy MD - Last Filed: 07/31/22 23:02> [facility] Past Medical History Medical History: Medical History Anxiety COVID-19 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 Mother No problems noted. Paternal Aunt Lung cancer <Michelle Daley CNP - Last Filed: 07/31/22 19:33> Social History Social History: Social History Alcohol intake: never Patient Tobacco Use Status: Former Tobacco user Tobacco use type: Cigarette Years Smoked: 23 Years e-Cigarette/Vaping Use: Currently Using Advance Directives: No <Michelle Daley CNP - Last Filed: 07/31/22 19:33> Physical Exam Vital Signs: Vital Signs: Last Vital Signs Temp 98.4 F 07/31/22 21:37 Pulse 68 07/31/22 21:37 Resp 19 07/31/22 21:37 BP 134/59 L 07/31/22 21:37 Pulse Ox 95 07/31/22 21:37 O2 Del Method 07/31/22 21:37 BMI result Body Mass Index 27.4 <Michelle Daley CNP - Last Filed: 07/31/22 19:33> Vital Signs: Last Vital Signs Temp 98.4 F 07/31/22 21:37 Pulse 68 07/31/22 21:37 Resp 19 07/31/22 21:37 BP 134/59 L 07/31/22 21:37 Pulse Ox 95 07/31/22 21:37 O2 Del Method 07/31/22 21:37 BMI result Body Mass Index 27.4 <Hank Moy MD - Last Filed: 07/31/22 23:02> Appearance: Alert. Oriented X3. No acute distress. Eyes: PERRLA, No Nystagmus ENT: Pharynx normal. Oral Mucosa moist Neck: Normal inspection. Neck supple. CVS: Normal heart rate and rhythm. Pulses normal. Respiratory: No respiratory distress. Equal air entry bilateral, no wheezing/rales/rhonchi Abdomen: Soft and nontender. Bowel sounds are present, no mass palpable, no CVA tenderness : Normal testicles normal scrotum open eyes no penile discharge no rash noticed rectal exam normal prostate nontender Skin: Skin warm and dry. Normal skin color. Normal skin turgor. Extremities: No lower extremity edema. No calf tenderness Neuro: Oriented X 3 <Hank Moy MD - Last Filed: 07/31/22 23:02> Course Course Course Narrative: RME: Patient is a 41-year-old male presents emergency department for evaluation of penile pain testicular pain rectal pain, bilateral posterior leg pain. Has associated pain with urination, difficulty initiating voiding during the day. Denies concern for STI. Denies penile discharge, swelling to the genitalia, constipation/diarrhea, dark stools. Denies any lower back pain. Denies any numbness or tingling to the extremities. Reports a history of similar pain in the past, was seen by primary care provider and advised he had prostatitis was prescribed antibiotics and then symptoms had improved. Plan: Urinalysis, CT/NG urine <Michelle Daley CNP - Last Filed: 07/31/22 19:33> Medications Administered Discontinued Medications Generic Name Dose Route Start Last Admin Trade Name Freq PRN Reason Stop Dose Admin Ibuprofen 600 mg 07/31/22 22:42 07/31/22 22:58 Ibuprofen 600 Mg Tablet PO 07/31/22 22:43 600 mg ONCE ONE Administration <Michelle Daley CNP - Last Filed: 07/31/22 19:33> Medications Administered Discontinued Medications Generic Name Dose Route Start Last Admin Trade Name Freq PRN Reason Stop Dose Admin Ibuprofen 600 mg 07/31/22 22:42 07/31/22 22:58 Ibuprofen 600 Mg Tablet PO 07/31/22 22:43 600 mg ONCE ONE Administration <Hank Moy MD - Last Filed: 07/31/22 23:02> MDM - Male Genitourinary MDM Narrative Medical decision making narrative: Patient with multiple nonspecific complaints been to his PCP already on naproxen the patient does not have any focal pain urine is negative sample sent for GC chlamydia, advised to follow with PCP <Hank Moy MD - Last Filed: 07/31/22 23:02> Lab Data Attestation: I reviewed the patient's lab results. <Hank Moy MD - Last Filed: 07/31/22 23:02> Labs: Lab Results 07/31/22 Range/Units 21:43 Urine Color Yellow Urine Appearance Clear Urine pH 5.0 (5.0-9.0) Ur Specific [place] 1.025 (1.005-1.025) Urine Protein Negative (Neg-Trace) mg/dL Urine Glucose (UA) 100 H (Negative) mg/dL Urine Ketones Negative (Negative) mg/dL Urine Blood Negative (Negative) Urine Nitrite Negative (Negative) Ur Leukocyte Esterase Negative (Negative) <Michelle Daley CNP - Last Filed: 07/31/22 19:33> Lab Results 07/31/22 Range/Units 21:43 Urine Color Yellow Urine Appearance Clear Urine pH 5.0 (5.0-9.0) Ur Specific [place] 1.025 (1.005-1.025) Urine Protein Negative (Neg-Trace) mg/dL Urine Glucose (UA) 100 H (Negative) mg/dL Urine Ketones Negative (Negative) mg/dL Urine Blood Negative (Negative) Urine Nitrite Negative (Negative) Ur Leukocyte Esterase Negative (Negative) <Hank Moy MD - Last Filed: 07/31/22 23:02> Discharge Plan Discharge Clinical Impression: Musculoskeletal pain <Michelle Daley CNP - Last Filed: 07/31/22 19:33> Patient Disposition: Home, Self-Care <Michelle Daley CNP - Last Filed: 07/31/22 19:33> Instructions: Musculoskeletal Pain (ED) <Michelle Daley CNP - Last Filed: 07/31/22 19:33> Additional Instructions: Take pain medication as prescribed by your pcp <Michelle Daley CNP - Last Filed: 07/31/22 19:33> Prescriptions: No Action omeprazole 40 mg capsule,delayed release(DR/EC) 40 mg PO DAILY Qty: 90 1RF hydroxyzine HCl 25 mg tablet 25 mg PO BID PRN (Reason: anxiety) Qty: 30 0RF phenazopyridine 100 mg tablet 100 mg PO BID Qty: 6 0RF hydroxyzine HCl 50 mg tablet 50 mg PO BEDTIME Qty: 14 0RF ibuprofen 600 mg tablet 600 mg PO Q6H PRN (Reason: pain) Qty: 20 0RF hydroxyzine HCl 50 mg tablet 50 mg PO BEDTIME PRN (Reason: sleep) Qty: 20 0RF fluticasone propionate [Flonase Allergy Relief] 50 mcg/actuation spray,suspension 1 spray intranasal BID Qty: 16 0RF Rx Instructions: administer into each nostril levocetirizine [24HR Allergy Relief] 5 mg tablet 5 mg PO DAILY Qty: 30 0RF bupropion HCl 150 mg tablet extended release 24 hr 150 mg PO QAM baclofen 10 mg tablet 10 mg PO TID sertraline 50 mg tablet 50 mg PO DAILY sertraline 100 mg tablet 100 mg PO DAILY naloxone 4 mg/actuation spray,non-aerosol 0 spray intranasal hydrocortisone 2.5 % cream with perineal applicator topical BID buprenorphine-naloxone 8-2 mg film 10 mg sublingual DAILY budesonide-formoterol [Symbicort] 160-4.5 mcg/actuation HFA aerosol inhaler 2 puff inhalation BID 30 Days Qty: 10.2 11RF pseudoephedrine HCl 120 mg tablet extended release 120 mg PO Q12H 30 Days Qty: 60 1RF mirtazapine 15 mg tablet 15 mg PO BEDTIME <Michelle Daley CNP - Last Filed: 07/31/22 19:33> Interventions: ED Discharge Assessment Last Done: 07/31/22 22:59 <Michelle Daley CNP - Last Filed: 07/31/22 19:33>
[2022-07-31 19:27] VITALS: BP 142/73; PULSE 82; RESP 16; TEMP 36.6; O2SAT 95; BMI 27.4
[2022-07-31 21:37] VITALS: BP 134/59; PULSE 68; RESP 19; TEMP 36.9; O2SAT 95
[2022-07-31 21:57] LABS: Appearance Urine Clear; Color Urine Yellow; Glucose Urine UA 100 mg/dL (Negative); Leukocyte Esterase Urine Negative (Negative); Nitrite Urine Negative (Negative); Specific Gravity - Urine 1.025 (1.005-1.025); Urine Blood Negative (Negative); Urine Ketones Negative (Negative); Urine Protein Negative (Neg-Trace)
[2022-07-31] MEDS: Ibuprofen 600 MG TABLET PO (22:58)
[2022-08-01 05:41] LABS: CT PCR NOT DETECTED (Not Detect.); NG PCR NOT DETECTED (Not Detect.)
== END 2022-07-31 22:59 | disposition home or self-care (01) ==
PROVIDERS: Nurse Practitioner Family; Emergency Provider Internal Medicine; PCP Internal Medicine
DX: M79.18 Myalgia, other site (principal); Z79.899 Other long term (current) drug therapy
CPT/HCPCS: 81003; 87491; 87591; 99283; 99284

== ENCOUNTER 2022-08-14 22:44 | Emergency (ER) | payer OTHER, SELFPAY ==
[2022-08-14 23:05] VITALS: BP 128/77; PULSE 64; RESP 18; TEMP 36.4; O2SAT 98; BMI 26.6
[2022-08-14 23:33] LABS: Appearance Urine Clear; Color Urine Dark Yellow; Glucose Urine UA Negative (Negative); Leukocyte Esterase Urine Negative (Negative); Nitrite Urine Negative (Negative); Specific Gravity - Urine >= 1.030 (1.005-1.025); Urine Blood Negative (Negative); Urine Ketones Trace mg/dL (Negative); Urine Protein Negative (Neg-Trace)
--- NOTE | 2022-08-14 23:50 | ED.GENADULT ---
HPI - General Adult General Chief complaint: Extremity Problem Stated complaint: Leg pain Time Seen by Provider: 08/14/22 23:41 Source: patient Mode of arrival: ambulatory Limitations: no limitations History of Present Illness HPI narrative: Patient comes to the emergency room complaining of chronic pain in the upper extremities and lower extremities. Patient has been evaluated multiple times by his primary care physician, in the emergency room, by urology and by surgery. Patient states that he feels pain radiating from his arms to his scrotum to his lower extremities. Patient denies any motor dysfunction, no urinary dysfunction. Patient denies any injury. Patient states that he has had multiple CT scans, MRIs and ultrasounds and all of them have been normal according to the patient. Patient denies hematuria or dysuria, no flank pain, no urinary incontinence/retention. Related Data Home Medications Medication Instructions Recorded Confirmed baclofen 10 mg tablet 10 mg PO TID 06/04/20 06/17/22 bupropion HCl 150 mg 24 hr tablet, 150 mg PO QAM 06/04/20 06/17/22 extended release sertraline 100 mg tablet 100 mg PO DAILY 01/07/22 06/17/22 sertraline 50 mg tablet 50 mg PO DAILY 01/07/22 06/17/22 mirtazapine 15 mg tablet 15 mg PO BEDTIME 04/14/22 06/17/22 hydrocortisone 2.5 % topical cream topical BID 04/22/22 06/17/22 with perineal applicator naloxone 4 mg/actuation nasal spray 0 spray intranasal 04/22/22 06/17/22 buprenorphine 8 mg-naloxone 2 mg 10 mg sublingual DAILY 06/12/22 06/17/22 sublingual film Previous Rx's Medication Instructions Recorded phenazopyridine 100 mg tablet 100 mg PO BID 6 doses #6 tabs 02/19/22 hydroxyzine HCl 25 mg tablet 25 mg PO BID PRN anxiety #30 tabs 02/20/22 hydroxyzine HCl 50 mg tablet 50 mg PO BEDTIME #14 tabs 04/06/22 ibuprofen 600 mg tablet 600 mg PO Q6H PRN pain #20 tabs 04/19/22 hydroxyzine HCl 50 mg tablet 50 mg PO BEDTIME PRN sleep #20 tabs 04/26/22 omeprazole 40 mg capsule,delayed 40 mg PO DAILY #90 caps 05/18/22 release fluticasone propionate 50 1 spray intranasal BID #16 grams 05/30/22 mcg/actuation nasal spray,suspension (Flonase Allergy Relief) levocetirizine 5 mg tablet (24HR 5 mg PO DAILY #30 tabs 05/30/22 Allergy Relief) budesonide-formoterol HFA 160 2 puff inhalation BID 30 days 06/12/22 mcg-4.5 mcg/actuation aerosol #10.2 grams inhaler (Symbicort) pseudoephedrine HCl 120 mg 120 mg PO Q12H 30 days #60 tabs 06/12/22 tablet,extended release gabapentin 100 mg capsule 100 mg PO BEDTIME #10 caps 08/14/22 Allergies Allergy/AdvReac Type Severity Reaction Status Date / Time shellfish Allergy Unknown rash Uncoded 06/17/22 14:32 Review of Systems Review of Systems: Constitutional : No Weight loss, No Fever, No Chills, No Night Sweats, No Fatigue, No Malaise ENT/Mouth : No Hearing loss, No Ear Pain, No Nasal Congestion, No Sinus Pain, No Hoarseness, No sore throat, No Rhinorrhea, No Swallowing Difficulty Eyes: No Eye Pain, No Swelling, No Redness, No Foreign Body, No Discharge, No Vision Changes Cardiovascular : No Chest Pain, No SOB, No Dyspnea on Exertion, No Orthopnea, No Edema, No Palpitations Respiratory : No Cough, No Sputum, No Wheezing, No Smoke Exposure, No Dyspnea Gastrointestinal : No Nausea, No Vomiting, No Diarrhea, No Constipation, No abdominal Pain, No Hematochezia, No Melena Genitourinary : no irregular bleeding, No Dysuria, No Urinary Frequency, No Hematuria, No Urinary Incontinence, No Urgency, No Flank Pain, No Urinary Flow Changes, No Hesitancy Musculoskeletal : Complaining chronic upper and lower extremity pain and scrotal pain Skin : No Skin Lesions, No rash Neuro : No Weakness, No Numbness, No Paresthesias, No Loss of Consciousness, No Dizziness, No Headache Psych : No Anxiety/Panic, No Depression, No SI/HI/AH/VH, No Social Issues, Heme/Lymph: No Bruising, No Bleeding,No Lymphadenopathy Endocrine : No Polyuria, No Polydipsia, No Temperature Intolerance PMFSH Past Medical History Medical History Anxiety COVID-19 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 Mother No problems noted. Paternal Aunt Lung cancer Social History Social History Alcohol intake: never Patient Tobacco Use Status: Former Tobacco user Tobacco use type: Cigarette Years Smoked: 23 Years e-Cigarette/Vaping Use: Currently Using Advance Directives: No Advance Directives Information Provided: Yes Physical Exam ED Vital Signs: Vital Signs - 24 hr 08/14/22 23:05 Temperature 97.6 F Pulse Rate 64 Respiratory Rate 18 Blood Pressure 128/77 Pulse Oximetry 98 Oxygen Delivery Method Room Air BMI result Body Mass Index 26.6 Const Other: Appearance: Alert. Oriented X3. No acute distress. Eyes: Pupils equal, round and reactive to light. ENT: Pharynx normal. Neck: Normal inspection. Neck supple. No lymph nodes noted. No crepitus CVS: Normal heart rate and rhythm. Pulses normal. Normal S1 and S2 Respiratory: No respiratory distress. Breath sounds normal. No Wheezing. No rales Abdomen: Soft and nontender. No rigidity. No distention. Skin: Skin warm and dry. Normal skin color. Normal skin turgor. Extremities: No lower extremity edema. No Lacerations. No Rash Neuro: Oriented X 3. No motor deficit. No sensory deficit. Moving all extremities. No slurred speech. CN 2 through 12 grossly intact Psych: calm, cooperative, normal affect Course Course Course Narrative: Patient has being evaluated by surgery and Urology for chronic scrotal pain. Urinalysis negative. Patient has been evaluated also multiple times for anxiety, which is likely the cause of patient's symptoms. Physical exam is normal However, I discussed with the patient trying gabapentin low-dose pressure. Of time. If it is not helping, patient instructed to discontinue taking it. Medical Decision Making Medical Decision Making Differential Diagnoses: Differential diagnosis (Chronic myalgia, anxiety, musculoskeletal pain, sciatica) Non-ED record review: Review of External (Non-ED) Record (I reviewed patient's records, patient has been seen by surgery and by Urology, no acute findings) Discharge Plan Discharge Clinical Impression: Myalgia, Anxiety Patient Disposition: Home, Self-Care Instructions: Musculoskeletal Pain (ED) Additional Instructions: Please follow-up with your primary care physician tomorrow. If you have any worsening or new symptoms, please return to the emergency room or call 911 Prescriptions: New gabapentin 100 mg capsule 100 mg PO BEDTIME Qty: 10 0RF No Action omeprazole 40 mg capsule,delayed release(DR/EC) 40 mg PO DAILY Qty: 90 1RF hydroxyzine HCl 25 mg tablet 25 mg PO BID PRN (Reason: anxiety) Qty: 30 0RF phenazopyridine 100 mg tablet 100 mg PO BID Qty: 6 0RF hydroxyzine HCl 50 mg tablet 50 mg PO BEDTIME Qty: 14 0RF ibuprofen 600 mg tablet 600 mg PO Q6H PRN (Reason: pain) Qty: 20 0RF hydroxyzine HCl 50 mg tablet 50 mg PO BEDTIME PRN (Reason: sleep) Qty: 20 0RF fluticasone propionate [Flonase Allergy Relief] 50 mcg/actuation spray,suspension 1 spray intranasal BID Qty: 16 0RF Rx Instructions: administer into each nostril levocetirizine [24HR Allergy Relief] 5 mg tablet 5 mg PO DAILY Qty: 30 0RF bupropion HCl 150 mg tablet extended release 24 hr 150 mg PO QAM baclofen 10 mg tablet 10 mg PO TID sertraline 50 mg tablet 50 mg PO DAILY sertraline 100 mg tablet 100 mg PO DAILY naloxone 4 mg/actuation spray,non-aerosol 0 spray intranasal hydrocortisone 2.5 % cream with perineal applicator topical BID buprenorphine-naloxone 8-2 mg film 10 mg sublingual DAILY budesonide-formoterol [Symbicort] 160-4.5 mcg/actuation HFA aerosol inhaler 2 puff inhalation BID 30 Days Qty: 10.2 11RF pseudoephedrine HCl 120 mg tablet extended release 120 mg PO Q12H 30 Days Qty: 60 1RF mirtazapine 15 mg tablet 15 mg PO BEDTIME
[2022-08-15 00:30] VITALS: BP 138/73; PULSE 62; RESP 16; TEMP 36.6; O2SAT 100
== END 2022-08-15 00:41 | disposition home or self-care (01) ==
PROVIDERS: Emergency Provider Emergency Medicine; PCP Internal Medicine
DX: M79.10 Myalgia, unspecified site (principal); F41.1 Generalized anxiety disorder; F43.0 Acute stress reaction; Z79.899 Other long term (current) drug therapy; Z87.891 Personal history of nicotine dependence
CPT/HCPCS: 81003; 99283

== ENCOUNTER 2022-08-20 16:21 | Emergency (ER) | payer OTHER, SELFPAY ==
[2022-08-20 17:45] VITALS: BP 140/82; PULSE 73; RESP 18; TEMP 37; O2SAT 98; BMI 26.2
--- NOTE | 2022-08-20 17:49 | ED.WOUNDLAC ---
HPI - Wound/Laceration General Chief Complaint: Wound/Laceration <JEFFREY Monroe - Last Filed: 08/20/22 17:49> Stated Complaint: Lac on finger <JEFFREY Monroe - Last Filed: 08/20/22 17:49> Time Seen by Provider: 08/20/22 18:26 <JEFFREY Monroe - Last Filed: 08/20/22 17:49> Source: patient <JEFFREY Younger Last Filed: 08/20/22 18:45> Mode of arrival: ambulatory <JEFFREY Younger - Last Filed: 08/20/22 18:45> Limitations: no limitations <JEFFREY Younger - Last Filed: 08/20/22 18:45> History of Present Illness HPI narrative: 41-year-old male presents to the ER for evaluation of a laceration on his right middle finger. he states earlier today he cut his finger on a piece of glass. It resulted in a flap of skin over his knuckle. He was able to control the bleeding with direct pressure. He has movement of his digit and denies any numbness or tingling. He states he is up-to-date on his tetanus shot. He is declining stitches. <JEFFREY Younger - Last Filed: 08/20/22 18:45> Onset (ago): hour(s) <JEFFREY Younger - Last Filed: 08/20/22 18:45> Extremity Location: right: hand ( Dorsal aspect of the middle finger) <JEFFREY Younger Last Filed: 08/20/22 18:45> Patient tetanus UTD: Yes <JEFFREY Younger Last Filed: 08/20/22 18:45> Context: accidental <JEFFREY Younger Last Filed: 08/20/22 18:45> Associated symptoms: none <JEFFREY Younger Last Filed: 08/20/22 18:45> Treatments prior to arrival: bandage <JEFFREY Younger Last Filed: 08/20/22 18:45> Related Data Home Medications: Home Medications Medication Instructions Recorded Confirmed baclofen 10 mg tablet 10 mg PO TID 06/04/20 06/17/22 bupropion HCl 150 mg 24 hr tablet, 150 mg PO QAM 06/04/20 06/17/22 extended release sertraline 100 mg tablet 100 mg PO DAILY 01/07/22 06/17/22 sertraline 50 mg tablet 50 mg PO DAILY 01/07/22 06/17/22 mirtazapine 15 mg tablet 15 mg PO BEDTIME 04/14/22 06/17/22 hydrocortisone 2.5 % topical cream topical BID 04/22/22 06/17/22 with perineal applicator naloxone 4 mg/actuation nasal spray 0 spray intranasal 04/22/22 06/17/22 buprenorphine 8 mg-naloxone 2 mg 10 mg sublingual DAILY 06/12/22 06/17/22 sublingual film Previous Rx's Medication Instructions Recorded phenazopyridine 100 mg tablet 100 mg PO BID 6 doses #6 tabs 02/19/22 hydroxyzine HCl 25 mg tablet 25 mg PO BID PRN anxiety #30 tabs 02/20/22 hydroxyzine HCl 50 mg tablet 50 mg PO BEDTIME #14 tabs 04/06/22 ibuprofen 600 mg tablet 600 mg PO Q6H PRN pain #20 tabs 04/19/22 hydroxyzine HCl 50 mg tablet 50 mg PO BEDTIME PRN sleep #20 tabs 04/26/22 omeprazole 40 mg capsule,delayed 40 mg PO DAILY #90 caps 05/18/22 release fluticasone propionate 50 1 spray intranasal BID #16 grams 05/30/22 mcg/actuation nasal spray,suspension (Flonase Allergy Relief) levocetirizine 5 mg tablet (24HR 5 mg PO DAILY #30 tabs 05/30/22 Allergy Relief) budesonide-formoterol HFA 160 2 puff inhalation BID 30 days 06/12/22 mcg-4.5 mcg/actuation aerosol #10.2 grams inhaler (Symbicort) pseudoephedrine HCl 120 mg 120 mg PO Q12H 30 days #60 tabs 06/12/22 tablet,extended release gabapentin 100 mg capsule 100 mg PO BEDTIME #10 caps 08/14/22 <JEFFREY Monroe - Last Filed: 08/20/22 17:49> Allergies/Adverse Reactions: Allergies Allergy/AdvReac Type Severity Reaction Status Date / Time shellfish Allergy Unknown rash Uncoded 06/17/22 14:32 <JEFFREY Monroe - Last Filed: 08/20/22 17:49> Review of Systems Review of Systems: Constitutional: No Fever, No Chills Cardiovascular: No Chest Pain, No SOB Gastrointestinal: No Nausea, No Vomiting Musculoskeletal: + joint pain, No Myalgias Skin: + Skin Lesions, No rash Neuro: No Weakness, No Numbness Psych: +Anxiety/Panic, No Depression Heme/Lymph: No Bruising <JEFFREY Younger - Last Filed: 08/20/22 18:45> [facility] Past Medical History Medical History: Medical History Anxiety COVID-19 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 Mother No problems noted. Paternal Aunt Lung cancer <JEFFREY Monroe - Last Filed: 08/20/22 17:49> Social History Social History: Social History Alcohol intake: never Patient Tobacco Use Status: Former Tobacco user Tobacco use type: Cigarette Years Smoked: 23 Years e-Cigarette/Vaping Use: Currently Using Advance Directives: No Advance Directives Information Provided: No <JEFFREY Monroe - Last Filed: 08/20/22 17:49> Physical Exam Vital Signs: Vital Signs: Last Vital Signs Temp 98.6 F 08/20/22 17:45 Pulse 73 08/20/22 17:45 Resp 18 08/20/22 17:45 BP 140/82 H 08/20/22 17:45 Pulse Ox 98 08/20/22 17:45 O2 Del Method 08/20/22 17:45 BMI result Body Mass Index 26.2 <JEFFREY Monroe - Last Filed: 08/20/22 17:49> Vital Signs: Last Vital Signs Temp 98.6 F 08/20/22 17:45 Pulse 73 08/20/22 17:45 Resp 18 08/20/22 17:45 BP 140/82 H 08/20/22 17:45 Pulse Ox 98 08/20/22 17:45 O2 Del Method 08/20/22 17:45 BMI result Body Mass Index 26.2 <JEFFREY Younger Last Filed: 08/20/22 18:45> Appearance: Alert. Oriented X3. No acute distress. HEENT: normal inspection CVS: Normal heart rate and rhythm. Pulses normal. Respiratory: No respiratory distress. Skin: Skin warm and dry. Normal skin color. Normal skin turgor. No rashes. Extremities: Dorsal aspect of the right 3rd digit with a skin avulsion, flap, over the PIP. No active bleeding. Normal extension and flexion of the finger. Neurovascularly intact distally. Neuro: Oriented X 3. No motor deficit. No sensory deficit. <JEFFREY Younger - Last Filed: 08/20/22 18:45> Course Course Course Narrative: E-17:50pm - 41-year-old male presenting to the ER with complaints of a laceration to the right hand middle finger that occurred yesterday on a broken glass. Reports he is unsure if he is up-to-date on tetanus although does not want a tetanus vaccine. He does want Dermabond does not want stitches although I explained to him that it is a flap and it is large and he most likely needs stitches. Patient will be sent to Emergency minor care for further evaluation and treatment. <JEFFREY Monroe - Last Filed: 08/20/22 17:49> Reevaluation(s) Reevaluation #1: patient seen and examined. The wound on his left middle finger is a flap over the PIP joint. He was encouraged to consider suture repair for adequate closure and healing however he declined. See procedure note. Wound was adequately closed with Steri-Strips and Dermabond the patient was counseled on management. Comfortable discharge home. <JEFFREY Yuonger Last Filed: 08/20/22 18:45> Procedures Laceration Laceration 1: Site: hand <JEFFREY Younger Last Filed: 08/20/22 18:45> Side (If applicable): right <JEFFREY Younger Last Filed: 08/20/22 18:45> Size (cm): 1.5 <JEFFREY Younger Last Filed: 08/20/22 18:45> Description: flap <JEFFREY Younger Last Filed: 08/20/22 18:45> Depth: simple, single layer <JEFFREY Younger Last Filed: 08/20/22 18:45> Pre-repair: wound explored, irrigated extensively and deep structures intact <JEFFREY Younger Last Filed: 08/20/22 18:45> Skin layer closed with: other ( Dermabond and Steri-Strips) <JEFFREY Younger Last Filed: 08/20/22 18:45> Discharge Plan Discharge Clinical Impression: Finger laceration <JEFFREY Monroe Last Filed: 08/20/22 17:49> Patient Disposition: Home, Self-Care <JEFFREY Monroe Last Filed: 08/20/22 17:49> Instructions: Finger Laceration (ED) <JEFFREY Monroe Last Filed: 08/20/22 17:49> Additional Instructions: Skin glue and Steri-Strips were used to close your wound today. They will come off on their own, usually within a week. Do not peel them off. Do not get your finger wet for the next 48 hours. Recommend keeping it straight with the provided finger splint so that healing can occur. If you develop signs or symptoms of infection call your doctor come back to the ER for further evaluation <JEFFREY Monroe Last Filed: 08/20/22 17:49> Prescriptions: No Action omeprazole 40 mg capsule,delayed release(DR/EC) 40 mg PO DAILY Qty: 90 1RF hydroxyzine HCl 25 mg tablet 25 mg PO BID PRN (Reason: anxiety) Qty: 30 0RF phenazopyridine 100 mg tablet 100 mg PO BID Qty: 6 0RF hydroxyzine HCl 50 mg tablet 50 mg PO BEDTIME Qty: 14 0RF ibuprofen 600 mg tablet 600 mg PO Q6H PRN (Reason: pain) Qty: 20 0RF hydroxyzine HCl 50 mg tablet 50 mg PO BEDTIME PRN (Reason: sleep) Qty: 20 0RF fluticasone propionate [Flonase Allergy Relief] 50 mcg/actuation spray,suspension 1 spray intranasal BID Qty: 16 0RF Rx Instructions: administer into each nostril levocetirizine [24HR Allergy Relief] 5 mg tablet 5 mg PO DAILY Qty: 30 0RF gabapentin 100 mg capsule 100 mg PO BEDTIME Qty: 10 0RF bupropion HCl 150 mg tablet extended release 24 hr 150 mg PO QAM baclofen 10 mg tablet 10 mg PO TID sertraline 50 mg tablet 50 mg PO DAILY sertraline 100 mg tablet 100 mg PO DAILY naloxone 4 mg/actuation spray,non-aerosol 0 spray intranasal hydrocortisone 2.5 % cream with perineal applicator topical BID buprenorphine-naloxone 8-2 mg film 10 mg sublingual DAILY budesonide-formoterol [Symbicort] 160-4.5 mcg/actuation HFA aerosol inhaler 2 puff inhalation BID 30 Days Qty: 10.2 11RF pseudoephedrine HCl 120 mg tablet extended release 120 mg PO Q12H 30 Days Qty: 60 1RF mirtazapine 15 mg tablet 15 mg PO BEDTIME <JEFFREY Monroe - Last Filed: 08/20/22 17:49> Stand Alone Forms: Work/School Release <JEFFREY Monroe - Last Filed: 08/20/22 17:49>
== END 2022-08-20 18:59 | disposition home or self-care (01) ==
PROVIDERS: Emergency Provider Internal Medicine; PCP Internal Medicine
DX: S61.212A Laceration without foreign body of right middle finger without damage to nail, initial encounter (principal); W25.XXXA Contact with sharp glass, initial encounter; Y93.9 Activity, unspecified; Y92.9 Unspecified place or not applicable; Y99.9 Unspecified external cause status; Z79.899 Other long term (current) drug therapy
CPT/HCPCS: 12041; 99282; 99283

== ENCOUNTER 2022-08-26 08:44 | Outpatient (REF) | payer OTHER, SELFPAY | END 2022-08-26 08:45 | disposition home or self-care (01) | LOC: HO.XRAY 08:44 | PROVIDERS: PCP Internal Medicine; Visit Provider Otolaryngology | DX: Z13.89 Encounter for screening for other disorder (principal) ==

== ENCOUNTER → 2022-09-18 15:23 | Outpatient (BNVA) | payer OTHER, SELFPAY | PROVIDERS: PCP Internal Medicine; Visit Provider Nurse Practitioner Family | DX: N48.89 Other specified disorders of penis (principal) | CPT/HCPCS: 99212 ==

== ENCOUNTER 2022-10-13 09:40 | Outpatient (REF) | payer OTHER, SELFPAY ==
--- NOTE | ~2022-10-13 | FL_ITS ---
EXAMINATION: FL BARIUM SWALLOW CLINICAL INFORMATION: Dysphagia COMPARISON: None TECHNIQUE: Barium swallow examination is performed using fluoroscopic evaluation in addition to multiple fluoroscopic spot views. The patient is imaged both upright and prone and using both thick and thin sulfate along with effervescent granules. Fluoroscopy time: 1.7 minutes DAP: 14.116 Gycm2 Images: 141 FINDINGS: There is normal oral bolus control and transfer. Normal posterior tilt of the epiglottis with elevation of the hyoid. No cricopharyngeal abnormality. A 13 mm barium tablet was attempted to be swallowed, being retained at the level of the epiglottis. The esophagus was normal in course, caliber, and contour. There was normal distensibility with no fixed segment of narrowing. No focal mucosal abnormality was identified. Mild esophageal dysmotility was observed. Contrast passed freely across the gastroesophageal junction into the stomach. No significant hiatal hernia. No gastroesophageal reflux was observed. FL/FL barium swallow IMPRESSION: Mild esophageal dysmotility noted. The patient was unable to swallow the 13 mm barium tablet, retained at the level of the epiglottis. The patient describes this as not a typical situation.
== END 2022-10-13 09:41 | disposition home or self-care (01) ==
LOC: HO.XRAY 09:40
PROVIDERS: PCP Internal Medicine; Visit Provider Otolaryngology
DX: R13.10 Dysphagia, unspecified (principal)
CPT/HCPCS: 74220

== ENCOUNTER 2022-10-23 13:43 | Outpatient (REF) | payer OTHER, SELFPAY ==
--- NOTE | ~2022-10-23 | XR_ITS ---
EXAMINATION: XR CHEST 2 VIEWS CLINICAL INFORMATION: Chest pain. COMPARISON: Chest radiographs dated 07/19/2022. TECHNIQUE: Frontal and lateral views of the chest were obtained. FINDINGS: The heart, great vessels, pulmonary vasculature and mediastinum are normal. The lungs show no focal infiltrate, effusion or pneumothorax. There is no acute osseous abnormality. XR/XR chest 2V IMPRESSION: No active cardiopulmonary disease.
== END 2022-10-23 13:44 | disposition home or self-care (01) ==
LOC: HO.XRAY 13:43
PROVIDERS: PCP Internal Medicine; Visit Provider Emergency Medicine
DX: R07.9 Chest pain, unspecified (principal)
CPT/HCPCS: 71046

== ENCOUNTER 2022-11-02 23:36 | Emergency (ER) | payer OTHER, SELFPAY ==
[2022-11-02 23:41] VITALS: BP 133/66; PULSE 68; RESP 16; TEMP 36.6; O2SAT 96; BMI 26.9
--- NOTE | 2022-11-02 23:46 | ECG_ITS ---
Test Reason : CHEST PAIN Blood Pressure : / mmHG Vent. Rate : 054 BPM Atrial Rate : 054 BPM P-R Int : 146 ms QRS Dur : 090 ms QT Int : 428 ms P-R-T Axes : 059 059 012 degrees QTc Int : 405 ms Sinus bradycardia Nonspecific ST abnormality Inferior leads When compared with ECG of 19-JUL-2022 07:04, No significant change was found Referred By: Generic ED Physician Electronically Signed By:BRE RUTH MD
[2022-11-03] MEDS: Ketorolac Tromethamine 60 MG/2 ML VIAL IM (00:07)
[2022-11-03 00:08] LABS: MANUAL DIFF FLAG NO
[2022-11-03 00:09] LABS: Basophils Absolute Auto 0.1 X10*3/uL (0.0-0.2); Basophils Percent Auto 1.8 % (0-2); Eosinophils Absolute Auto 0.2 X10*3/uL (0.0-0.4); Eosinophils Percent Auto 4.1 % (0-4); Hematocrit 38.5 % (42.0-52.0); Hemoglobin 13.4 g/dl (14.0-18.0); Imm Gran Abs Auto 0.02 X10*3/uL (0.00-0.03); Imm Gran Pct Auto 0.4 % (0.0-0.4); Lymphocytes Absolute Auto 2.5 X10*3/uL (1.2-4.9); Lymphocytes Percent Auto 47.9 % (20-40); Mean Corpuscular HGB Conc 34.8 g/dl (31.0-36.0); Mean Corpuscular Hemoglobin 29.2 pg (27.0-33.0); Mean Corpuscular Volume 83.9 fL (80.0-98.0); Mean Platelet Volume 9.2 fL (9.4-12.4); Monocytes Absolute Auto 0.4 X10*3/uL (0.1-1.2); Monocytes Percent Auto 7.6 % (2-11); Neutrophils Percent Auto 38.2 % (45-73); Platelet Count 211 X10*3/uL (160-400); Red Blood Count 4.59 X10*6/uL (4.60-5.80); White Blood Count 5.1 X10*3/uL (4.8-10.8)
--- NOTE | 2022-11-03 00:13 | ED.CHESTPAIN ---
HPI - Chest Pain General Chief Complaint: Chest Pain Stated Complaint: Chest pain, back pain Time Seen by Provider: 11/02/22 23:54 Source: patient Mode of arrival: ambulatory Limitations: no limitations History of Present Illness HPI narrative: Patient no significant past medical history been having left-sided chest pain bilateral sides pain for last 2 weeks no nausea no vomiting no shortness of breath patient was moving heavy stuff 2 weeks ago since then and complaining of pain Related Data Home Medications Medication Instructions Recorded Confirmed baclofen 10 mg tablet 10 mg PO TID 06/04/20 09/19/22 bupropion HCl 150 mg 24 hr tablet, 150 mg PO QAM 06/04/20 09/19/22 extended release sertraline 100 mg tablet 100 mg PO DAILY 01/07/22 09/19/22 sertraline 50 mg tablet 50 mg PO DAILY 01/07/22 09/19/22 mirtazapine 15 mg tablet 15 mg PO BEDTIME 04/14/22 09/19/22 hydrocortisone 2.5 % topical cream topical BID 04/22/22 09/19/22 with perineal applicator naloxone 4 mg/actuation nasal spray 0 spray intranasal 04/22/22 09/19/22 buprenorphine 8 mg-naloxone 2 mg 10 mg sublingual DAILY 06/12/22 09/19/22 sublingual film sennosides 8.6 mg tablet (senna) 8.6 - 17.2 mg PO BEDTIME PRN 09/18/22 09/19/22 constipation Previous Rx's Medication Instructions Recorded phenazopyridine 100 mg tablet 100 mg PO BID 6 doses #6 tabs 02/19/22 hydroxyzine HCl 25 mg tablet 25 mg PO BID PRN anxiety #30 tabs 02/20/22 hydroxyzine HCl 50 mg tablet 50 mg PO BEDTIME #14 tabs 04/06/22 ibuprofen 600 mg tablet 600 mg PO Q6H PRN pain #20 tabs 04/19/22 omeprazole 40 mg capsule,delayed 40 mg PO DAILY #90 caps 05/18/22 release fluticasone propionate 50 1 spray intranasal BID #16 grams 05/30/22 mcg/actuation nasal spray,suspension (Flonase Allergy Relief) levocetirizine 5 mg tablet (24HR 5 mg PO DAILY #30 tabs 05/30/22 Allergy Relief) budesonide-formoterol HFA 160 2 puff inhalation BID 30 days 06/12/22 mcg-4.5 mcg/actuation aerosol #10.2 grams inhaler (Symbicort) pseudoephedrine HCl 120 mg 120 mg PO Q12H 30 days #60 tabs 06/12/22 tablet,extended release gabapentin 100 mg capsule 100 mg PO BEDTIME #10 caps 08/14/22 ibuprofen 600 mg tablet 600 mg PO Q6H PRN pain #30 tabs 11/03/22 Allergies Allergy/AdvReac Type Severity Reaction Status Date / Time shellfish Allergy Unknown rash Uncoded 09/19/22 21:50 Review of Systems Review of Systems: Yes all other systems are reviewed and are negative [facility] Past Medical History Medical History Anxiety COVID-19 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 Mother No problems noted. Paternal Aunt Lung cancer Social History Social History Alcohol intake: former Patient Tobacco Use Status: Former Tobacco user Tobacco use type: Cigarette Years Smoked: 23 Years Smoked in Last 30 Days: Yes e-Cigarette/Vaping Use: Currently Using Use of substances other than those prescribed or required for medical reasons: No Advance Directives: No Physical Exam Vital Signs: Vital Signs: Last Vital Signs Temp 98.7 F 11/03/22 00:47 Pulse 58 11/03/22 00:47 Resp 12 11/03/22 00:47 BP 110/67 11/03/22 00:47 Pulse Ox 98 11/03/22 00:47 O2 Del Method 11/03/22 00:47 BMI result Body Mass Index 26.9 Appearance: Alert. Oriented X3. No acute distress. Eyes: PERRLA, No Nystagmus ENT: Pharynx normal. Oral Mucosa moist Neck: Normal inspection. Neck supple. CVS: Normal heart rate and rhythm. Pulses normal. Respiratory: No respiratory distress. Equal air entry bilateral, no wheezing/rales/rhonchi Abdomen: Soft and nontender. Bowel sounds are present, no mass palpable, no CVA tenderness Skin: Skin warm and dry. Normal skin color. Normal skin turgor. Extremities: No lower extremity edema. No calf tenderness Neuro: Oriented X 3. No motor deficit. Medications Administered Discontinued Medications Generic Name Dose Route Start Last Admin Trade Name Freq PRN Reason Stop Dose Admin Ketorolac Tromethamine 60 mg 11/03/22 00:02 11/03/22 00:07 Ketorolac Tromethamine 60 Mg/2 Ml Vial IM 11/03/22 00:03 60 mg ONCE ONE Administration Medical Decision Making Medical Decision Making [facility] Narrative: Patient atypical chest pain likely musculoskeletal will give Toradol for pain check labs including CPK Patient labs negative for any acute ischemia heart score of 0 atypical chest discharge patient home advised to follow up with PCP Lab Data [facility] Lab Attestation statement: I reviewed the patient's lab results. 11/03/22 00:03 11/03/22 00:03 Labs: Lab Results 11/03/22 11/03/22 11/03/22 Range/Units 00:03 00:03 00:03 WBC 5.1 (4.8-10.8) X10*3/uL RBC 4.59 L (4.60-5.80) X10*6/uL Hgb 13.4 L (14.0-18.0) g/dl Hct 38.5 L (42.0-52.0) % MCV 83.9 (80.0-98.0) fL MCH 29.2 (27.0-33.0) pg MCHC 34.8 (31.0-36.0) g/dl RDW 12.0 (11.0-16.0) % Plt Count 211 (160-400) X10*3/uL MPV 9.2 L (9.4-12.4) fL Immature Gran % (Auto) 0.4 (0.0-0.4) % Neut % (Auto) 38.2 L (45-73) % Lymph % (Auto) 47.9 H (20-40) % Hyde % (Auto) 7.6 (2-11) % Eos % (Auto) 4.1 H (0-4) % Baso % (Auto) 1.8 (0-2) % Lymph # (Auto) 2.5 (1.2-4.9) X10*3/uL Hyde # (Auto) 0.4 (0.1-1.2) X10*3/uL Eos # (Auto) 0.2 (0.0-0.4) X10*3/uL Baso # (Auto) 0.1 (0.0-0.2) X10*3/uL Abs Immat Gran (auto) 0.02 (0.00-0.03) X10*3/uL Absolute Neuts (auto) 2.0 (2.0-8.3) x10*3/uL Absolute Nucleated RBC 0.000 (0.0-0.012) X10*3/uL Nucleated RBC % (auto) 0.0 (0.0-0.2) /100WBC Sodium 141 (135-145) mmol/L Potassium 3.7 D (3.3-5.1) mmol/L Chloride 107 (96-108) mmol/L Carbon Dioxide 26 (22-29) mmol/L Anion Gap 12 (12-20) BUN 15 (9-16) mg/dL Creatinine 0.93 (0.5-1.4) mg/dL Estim Creat Clear Calc 93.3 Estimated GFR > 60 Random Glucose 94 (60-115) mg/dL Calcium 9.3 (8.4-10.2) mg/dL Total Creatine Kinase 166 (38-174) U/L Troponin I High Sens 4.8 (<3.5-35.0) ng/L Independent Interpretation I performed an independent interpretation of an: EKG Interpretation: Sinus bradycardia heart rate 56 beats per minute normal interval normal axis no acute ST-T no acute ischemia Discharge Plan Discharge Clinical Impression: Musculoskeletal chest pain Patient Disposition: Home, Self-Care Instructions: Chest Wall Pain (ED) Additional Instructions: Take ibuprofen for pain The chest pain is musculoskeletal from the heart follow with PCP if any concerns Prescriptions: New ibuprofen 600 mg tablet 600 mg PO Q6H PRN (Reason: pain) Qty: 30 0RF No Action omeprazole 40 mg capsule,delayed release(DR/EC) 40 mg PO DAILY Qty: 90 1RF hydroxyzine HCl 25 mg tablet 25 mg PO BID PRN (Reason: anxiety) Qty: 30 0RF phenazopyridine 100 mg tablet 100 mg PO BID Qty: 6 0RF hydroxyzine HCl 50 mg tablet 50 mg PO BEDTIME Qty: 14 0RF ibuprofen 600 mg tablet 600 mg PO Q6H PRN (Reason: pain) Qty: 20 0RF fluticasone propionate [Flonase Allergy Relief] 50 mcg/actuation spray,suspension 1 spray intranasal BID Qty: 16 0RF Rx Instructions: administer into each nostril levocetirizine [24HR Allergy Relief] 5 mg tablet 5 mg PO DAILY Qty: 30 0RF gabapentin 100 mg capsule 100 mg PO BEDTIME Qty: 10 0RF bupropion HCl 150 mg tablet extended release 24 hr 150 mg PO QAM baclofen 10 mg tablet 10 mg PO TID sertraline 50 mg tablet 50 mg PO DAILY sertraline 100 mg tablet 100 mg PO DAILY naloxone 4 mg/actuation spray,non-aerosol 0 spray intranasal hydrocortisone 2.5 % cream with perineal applicator topical BID buprenorphine-naloxone 8-2 mg film 10 mg sublingual DAILY budesonide-formoterol [Symbicort] 160-4.5 mcg/actuation HFA aerosol inhaler 2 puff inhalation BID 30 Days Qty: 10.2 11RF pseudoephedrine HCl 120 mg tablet extended release 120 mg PO Q12H 30 Days Qty: 60 1RF mirtazapine 15 mg tablet 15 mg PO BEDTIME sennosides [senna] 8.6 mg tablet 8.6 - 17.2 mg PO BEDTIME PRN (Reason: constipation)
[2022-11-03 00:26] LABS: Anion Gap 12 (12-20); Blood Urea Nitrogen 15 mg/dL (9-16); Calcium 9.3 mg/dL (8.4-10.2); Carbon Dioxide 26 mmol/L (22-29); Chloride 107 mmol/L (96-108); Creatinine Clr Calc Pharmacy 93.3; Estimated Glomerular Filt Rate > 60; Glucose Random 94 mg/dL (60-115); Potassium 3.7 mmol/L (3.3-5.1); Sodium 141 mmol/L (135-145)
[2022-11-03 00:28] LABS: Troponin-I High Sensitivity 4.8 ng/L (<3.5-35.0)
[2022-11-03 00:47] VITALS: BP 110/67; PULSE 58; RESP 12; TEMP 37.1; O2SAT 98
[2022-11-03 00:59] VITALS: PULSE 63
--- NOTE | 2022-11-03 01:34 | ECG_ITS ---
Test Reason : chest pain Blood Pressure : / mmHG Vent. Rate : 054 BPM Atrial Rate : 054 BPM P-R Int : 148 ms QRS Dur : 090 ms QT Int : 424 ms P-R-T Axes : 062 053 019 degrees QTc Int : 402 ms Sinus bradycardia Nonspecific ST abnormality Inferior leads When compared with ECG of 03-NOV-2022 00:40, No significant change was found Referred By: Hank Moy Electronically Signed By:BRE RUTH MD
== END 2022-11-03 02:36 | disposition home or self-care (01) ==
PROVIDERS: Emergency Provider Internal Medicine; PCP Internal Medicine
DX: R07.89 Other chest pain (principal); Z87.891 Personal history of nicotine dependence; Z79.899 Other long term (current) drug therapy
CPT/HCPCS: 36415; 80048; 82550; 84484; 85025; 93005; 96372; 99284; 99285; J1885

== ENCOUNTER 2022-11-05 18:24 | Emergency (ER) | payer OTHER, SELFPAY ==
--- NOTE | ~2022-11-05 | XR_ITS ---
EXAMINATION: XR CHEST CLINICAL INFORMATION: Pain COMPARISON: Chest xray on 10/23/22 TECHNIQUE: 2 views of the chest were obtained. FINDINGS: No significant abnormality is noted involving the heart, lungs, mediastinum, bony thorax or soft tissues. XR/XR chest 2V IMPRESSION: Unremarkable examination.
[2022-11-05 18:31] VITALS: BP 110/76; PULSE 69; RESP 20; TEMP 36.6; O2SAT 97; BMI 27.4
--- NOTE | 2022-11-05 18:36 | ED.GENADULT ---
HPI - General Adult General Chief complaint: General Medical Stated complaint: Rib cage pain Time Seen by Provider: 11/05/22 19:43 Source: patient and RN notes reviewed Mode of arrival: ambulatory Limitations: no limitations History of Present Illness HPI narrative: 42-year-old male with past medical history significant for sleep apnea presents for evaluation of left chest wall pain. Patient reports has not started 1 week ago. He was seen in the ER 2 days ago had a negative workup including labs, EKG. He is diagnosed with chest wall pain. He reports his pain persist His pain is at worst a 10 and stabbing. The pain is worse with movement and is reproducible. Denies any family history of cardiac disease. Denies any fevers, chills, shortness of breath Related Data Home Medications Medication Instructions Recorded Confirmed baclofen 10 mg tablet 10 mg PO TID 06/04/20 09/19/22 bupropion HCl 150 mg 24 hr tablet, 150 mg PO QAM 06/04/20 09/19/22 extended release sertraline 100 mg tablet 100 mg PO DAILY 01/07/22 09/19/22 sertraline 50 mg tablet 50 mg PO DAILY 01/07/22 09/19/22 mirtazapine 15 mg tablet 15 mg PO BEDTIME 04/14/22 09/19/22 hydrocortisone 2.5 % topical cream topical BID 04/22/22 09/19/22 with perineal applicator naloxone 4 mg/actuation nasal spray 0 spray intranasal 04/22/22 09/19/22 buprenorphine 8 mg-naloxone 2 mg 10 mg sublingual DAILY 06/12/22 09/19/22 sublingual film sennosides 8.6 mg tablet (senna) 8.6 - 17.2 mg PO BEDTIME PRN 09/18/22 09/19/22 constipation Previous Rx's Medication Instructions Recorded phenazopyridine 100 mg tablet 100 mg PO BID 6 doses #6 tabs 02/19/22 hydroxyzine HCl 25 mg tablet 25 mg PO BID PRN anxiety #30 tabs 02/20/22 hydroxyzine HCl 50 mg tablet 50 mg PO BEDTIME #14 tabs 04/06/22 ibuprofen 600 mg tablet 600 mg PO Q6H PRN pain #20 tabs 04/19/22 omeprazole 40 mg capsule,delayed 40 mg PO DAILY #90 caps 05/18/22 release fluticasone propionate 50 1 spray intranasal BID #16 grams 05/30/22 mcg/actuation nasal spray,suspension (Flonase Allergy Relief) levocetirizine 5 mg tablet (24HR 5 mg PO DAILY #30 tabs 05/30/22 Allergy Relief) budesonide-formoterol HFA 160 2 puff inhalation BID 30 days 06/12/22 mcg-4.5 mcg/actuation aerosol #10.2 grams inhaler (Symbicort) pseudoephedrine HCl 120 mg 120 mg PO Q12H 30 days #60 tabs 06/12/22 tablet,extended release gabapentin 100 mg capsule 100 mg PO BEDTIME #10 caps 08/14/22 ibuprofen 600 mg tablet 600 mg PO Q6H PRN pain #30 tabs 11/03/22 Allergies Allergy/AdvReac Type Severity Reaction Status Date / Time shellfish Allergy Unknown rash Uncoded 09/19/22 21:50 Review of Systems Constitutional: Constitutional: Reports as per HPI, Denies chills and Denies fatigue Cardiovascular: Cardiovascular: Reports chest pain (left chest wall pain) and Denies dyspnea Respiratory: Respiratory: Denies cough and Denies dyspnea Gastrointestinal: Gastrointestinal: Denies abdominal pain, Denies constipation and Denies vomiting Genitourinary: Genitourinary: Denies difficulty urinating and Denies dysuria Endocrine: Endocrine: Denies fatigue PMF Past Medical History Medical History Anxiety COVID-19 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 Mother No problems noted. Paternal Aunt Lung cancer Social History Social History Alcohol intake: former Patient Tobacco Use Status: Former Tobacco user Tobacco use type: Cigarette Years Smoked: 23 Years e-Cigarette/Vaping Use: Currently Using Advance Directives: No Advance Directives Information Provided: No Physical Exam ED Vital Signs: Vital Signs - 24 hr 11/05/22 18:31 Temperature 97.8 F Pulse Rate 69 Respiratory Rate 20 Blood Pressure 110/76 Pulse Oximetry 97 Oxygen Delivery Method Room Air BMI result Body Mass Index 27.4 Const General: healthy appearing, comfortable, no acute distress, alert and awake Nutritional Appearance: well nourished Orientation/consciousness: patient oriented x3 Eyes Eyelids: Yes eyelids normal Conjunctivae: conjunctivae normal Sclerae: sclerae normal Corneas: corneas normal Pupils: Equal, round and reactive pupils present EOM: EOMs intact bilaterally Chest Chest palpation & inspection: normal inspection of the chest and localized rib tenderness with anteroposterior compression (left anterior axillary line) Resp Effort & Inspection: normal respiratory effort, able to speak in complete sentences, no audible wheezes and not labored Auscultation: clear to auscultation bilaterally Skin General skin exam: no rashes or lesions noted and elasticity normal Lesions: no lesions Rashes: no rashes Neuro General: patient oriented x3 Cranial nerves: Yes Equal, round and reactive pupils present Extrem General: Yes full ROM Course Course Course Narrative: 42-year-old male presents for evaluation of left-sided chest wall pain. He was seen here on 11/03/2022, had labs including a troponin, CK, EKG. All of which was unremarkable. He presents for worsening pain. Heart score of 0. The patient did not have any imaging will get chest x-ray. I do not see a reason to repeat labs as the patient has no risk factors for ACS, had a negative workup 2 days ago and his pain is reproducible on exam. Medical Decision Making Medical Decision Making [facility] Narrative: A 42-year-old male presents for evaluation of chest wall pain is reproducible on exam. He had a full workup 2 days ago, has a heart score of 0. Patient was reassured, educated him he will be discharged with symptomatic care Differential Diagnosis Chest wall pain Costochondritis Muscle strain ACS less likely Pneumonia Bronchitis Pneumothorax Discharge Plan Discharge Clinical Impression: Acute chest wall pain Patient Disposition: Home, Self-Care Instructions: Costochondritis (ED) Additional Instructions: Use ibuprofen or Tylenol to help with your symptoms Your chest x-ray was normal. I did review your workup for a couple of days ago that also was reassuring Follow-up with your primary doctor Prescriptions: No Action omeprazole 40 mg capsule,delayed release(DR/EC) 40 mg PO DAILY Qty: 90 1RF hydroxyzine HCl 25 mg tablet 25 mg PO BID PRN (Reason: anxiety) Qty: 30 0RF ibuprofen 600 mg tablet 600 mg PO Q6H PRN (Reason: pain) Qty: 30 0RF phenazopyridine 100 mg tablet 100 mg PO BID Qty: 6 0RF hydroxyzine HCl 50 mg tablet 50 mg PO BEDTIME Qty: 14 0RF ibuprofen 600 mg tablet 600 mg PO Q6H PRN (Reason: pain) Qty: 20 0RF fluticasone propionate [Flonase Allergy Relief] 50 mcg/actuation spray,suspension 1 spray intranasal BID Qty: 16 0RF Rx Instructions: administer into each nostril levocetirizine [24HR Allergy Relief] 5 mg tablet 5 mg PO DAILY Qty: 30 0RF gabapentin 100 mg capsule 100 mg PO BEDTIME Qty: 10 0RF bupropion HCl 150 mg tablet extended release 24 hr 150 mg PO QAM baclofen 10 mg tablet 10 mg PO TID sertraline 50 mg tablet 50 mg PO DAILY sertraline 100 mg tablet 100 mg PO DAILY naloxone 4 mg/actuation spray,non-aerosol 0 spray intranasal hydrocortisone 2.5 % cream with perineal applicator topical BID buprenorphine-naloxone 8-2 mg film 10 mg sublingual DAILY budesonide-formoterol [Symbicort] 160-4.5 mcg/actuation HFA aerosol inhaler 2 puff inhalation BID 30 Days Qty: 10.2 11RF pseudoephedrine HCl 120 mg tablet extended release 120 mg PO Q12H 30 Days Qty: 60 1RF mirtazapine 15 mg tablet 15 mg PO BEDTIME sennosides [senna] 8.6 mg tablet 8.6 - 17.2 mg PO BEDTIME PRN (Reason: constipation)
== END 2022-11-05 19:56 | disposition home or self-care (01) ==
PROVIDERS: Emergency Provider Emergency Medicine; PCP Internal Medicine
DX: R07.89 Other chest pain (principal); M94.0 Chondrocostal junction syndrome [Tietze]; Z79.899 Other long term (current) drug therapy
CPT/HCPCS: 71046; 99283

== ENCOUNTER 2022-11-08 07:49 | Emergency (ER) | payer OTHER, SELFPAY ==
--- NOTE | ~2022-11-08 | XR_ITS ---
EXAMINATION: XR CHEST CLINICAL INFORMATION: Shortness of breath COMPARISON: Chest x-ray November 05, 2022 TECHNIQUE: Frontal view of the chest was obtained. FINDINGS: Cardiac silhouette is normal in size. The lungs are well aerated. There is no lobar consolidation. No pleural effusion or pneumothorax. XR/XR chest 1V IMPRESSION: No acute pulmonary pathology.
[2022-11-08 07:55] VITALS: BP 126/72; PULSE 65; RESP 18; TEMP 36.7; O2SAT 98; BMI 27.4
--- NOTE | 2022-11-08 07:57 | ECG_ITS ---
Test Reason : CHEST TIGHTNESS Blood Pressure : / mmHG Vent. Rate : 057 BPM Atrial Rate : 057 BPM P-R Int : 144 ms QRS Dur : 092 ms QT Int : 412 ms P-R-T Axes : 057 048 023 degrees QTc Int : 401 ms Sinus bradycardia Otherwise normal ECG When compared with ECG of 03-NOV-2022 01:36, No significant change was found Referred By: Generic ED Physician Electronically Signed By:BRE RUTH MD
[2022-11-08 08:20] LABS: MANUAL DIFF FLAG NO
[2022-11-08 08:23] LABS: Basophils Absolute Auto 0.1 X10*3/uL (0.0-0.2); Basophils Percent Auto 1.4 % (0-2); Eosinophils Absolute Auto 0.2 X10*3/uL (0.0-0.4); Eosinophils Percent Auto 4.5 % (0-4); Hematocrit 39.3 % (42.0-52.0); Hemoglobin 13.4 g/dl (14.0-18.0); Imm Gran Abs Auto 0.01 X10*3/uL (0.00-0.03); Imm Gran Pct Auto 0.2 % (0.0-0.4); Lymphocytes Absolute Auto 2.4 X10*3/uL (1.2-4.9); Lymphocytes Percent Auto 48.5 % (20-40); Mean Corpuscular HGB Conc 34.1 g/dl (31.0-36.0); Mean Corpuscular Hemoglobin 28.7 pg (27.0-33.0); Mean Corpuscular Volume 84.2 fL (80.0-98.0); Mean Platelet Volume 9.3 fL (9.4-12.4); Monocytes Absolute Auto 0.4 X10*3/uL (0.1-1.2); Monocytes Percent Auto 8.4 % (2-11); Neutrophils Absolute Auto 1.8 x10*3/uL (2.0-8.3); Platelet Count 201 X10*3/uL (160-400); Red Blood Count 4.67 X10*6/uL (4.60-5.80); White Blood Count 4.9 X10*3/uL (4.8-10.8)
[2022-11-08 08:35] LABS: Anion Gap 13 (12-20); Blood Urea Nitrogen 11 mg/dL (9-16); Carbon Dioxide 27 mmol/L (22-29); Chloride 107 mmol/L (96-108); Creatinine Clr Calc Pharmacy 104.5; Estimated Glomerular Filt Rate > 60; Glucose Random 92 mg/dL (60-115); Potassium 3.9 mmol/L (3.3-5.1); Sodium 143 mmol/L (135-145)
[2022-11-08 08:43] LABS: Troponin-I High Sensitivity 4.1 ng/L (<3.5-35.0)
[2022-11-08 08:57] LABS: Influenza A PCR NEGATIVE (Negative); Influenza B PCR NEGATIVE (Negative); Resp Syncy Virus RNA Qual PCR NEGATIVE (Negative); SARS COV2 PCR INHOUSE NEGATIVE (Negative)
[2022-11-08 09:28] VITALS: PULSE 75; O2SAT 99
[2022-11-08 10:25] VITALS: BP 133/77; PULSE 59; RESP 18; O2SAT 95
--- NOTE | 2022-11-08 10:36 | ED_ITS ---
HPI - General Adult General Chief complaint: General Medical Stated complaint: SOB, L arm pain Time Seen by Provider: 11/08/22 10:27 Source: patient Mode of arrival: ambulatory Limitations: no limitations History of Present Illness HPI narrative: 42-year-old male came in for evaluation of bilateral chest wall pain that has been going for the past few weeks, patient had 4 ED visits prior to this visit for evaluation of the same symptoms. Patient been having constant bilateral chest wall pain with no radiation, associated with shortness of breath, no recent travel, no recent prolonged immobilization. No lower extremity swelling or tenderness. No sick contacts, no coughing, no fever, no chills. Related Data Home Medications Medication Instructions Recorded Confirmed baclofen 10 mg tablet 10 mg PO TID 06/04/20 09/19/22 bupropion HCl 150 mg 24 hr tablet, 150 mg PO QAM 06/04/20 09/19/22 extended release sertraline 100 mg tablet 100 mg PO DAILY 01/07/22 09/19/22 sertraline 50 mg tablet 50 mg PO DAILY 01/07/22 09/19/22 mirtazapine 15 mg tablet 15 mg PO BEDTIME 04/14/22 09/19/22 hydrocortisone 2.5 % topical cream topical BID 04/22/22 09/19/22 with perineal applicator naloxone 4 mg/actuation nasal spray 0 spray intranasal 04/22/22 09/19/22 buprenorphine 8 mg-naloxone 2 mg 10 mg sublingual DAILY 06/12/22 09/19/22 sublingual film sennosides 8.6 mg tablet (senna) 8.6 - 17.2 mg PO BEDTIME PRN 09/18/22 09/19/22 constipation Previous Rx's Medication Instructions Recorded phenazopyridine 100 mg tablet 100 mg PO BID 6 doses #6 tabs 02/19/22 hydroxyzine HCl 25 mg tablet 25 mg PO BID PRN anxiety #30 tabs 02/20/22 hydroxyzine HCl 50 mg tablet 50 mg PO BEDTIME #14 tabs 04/06/22 ibuprofen 600 mg tablet 600 mg PO Q6H PRN pain #20 tabs 04/19/22 omeprazole 40 mg capsule,delayed 40 mg PO DAILY #90 caps 05/18/22 release fluticasone propionate 50 1 spray intranasal BID #16 grams 05/30/22 mcg/actuation nasal spray,suspension (Flonase Allergy Relief) levocetirizine 5 mg tablet (24HR 5 mg PO DAILY #30 tabs 05/30/22 Allergy Relief) budesonide-formoterol HFA 160 2 puff inhalation BID 30 days 06/12/22 mcg-4.5 mcg/actuation aerosol #10.2 grams inhaler (Symbicort) pseudoephedrine HCl 120 mg 120 mg PO Q12H 30 days #60 tabs 06/12/22 tablet,extended release gabapentin 100 mg capsule 100 mg PO BEDTIME #10 caps 08/14/22 ibuprofen 600 mg tablet 600 mg PO Q6H PRN pain #30 tabs 11/03/22 Allergies Allergy/AdvReac Type Severity Reaction Status Date / Time shellfish Allergy Unknown rash Uncoded 09/19/22 21:50 Review of Systems Review of Systems: All other systems are reviewed and are negative Constitutional: Reports as per HPI and Reports no additional constitutional complaints Eyes: Reports as per HPI and Reports no additional eye complaints Reports system reviewed and no additional complaints, except as documented Cardiovascular: Reports as per HPI and Reports no additional cardiovascular complaints Respiratory: Reports as per HPI and Reports no additional respiratory complaints Gastrointestinal: Reports as per HPI and Reports no additional gastrointestinal complaints Genitourinary: Reports no additional female genitourinary complaints Musculoskeletal: Reports no additional musculoskeletal complaints Skin/Breast: Reports system reviewed and no additional complaints, except as docu Psychiatric: Reports no additional psychiatric complaints Endocrine: Reports no additional endocrine complaints Hematologic/Lymphatic: Reports no additional hematologic/lymphatic complaints Allergic/Immunologic: Reports no additional allergic/immunologic complaints Reports system reviewed and no additional complaints, except as documented and Reports Abnormal speech present [facility] Past Medical History Medical History Anxiety COVID-19 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 Mother No problems noted. Paternal Aunt Lung cancer Social History Social History Alcohol intake: former Patient Tobacco Use Status: Former Tobacco user Tobacco use type: Cigarette Years Smoked: 23 Years e-Cigarette/Vaping Use: Currently Using Advance Directives: No Advance Directives Information Provided: No Physical Exam ED Vital Signs: Vital Signs - 24 hr 11/08/22 07:55 11/08/22 09:28 11/08/22 10:25 Temperature 98.1 F Pulse Rate 65 75 59 Respiratory Rate 18 18 Blood Pressure 126/72 133/77 Pulse Oximetry 98 99 95 Oxygen Delivery Method Room Air Room Air Room Air BMI result Body Mass Index 27.4 Vital signs have been reviewed as appeared to be correct. Blood pressure normal. Heart rate normal. Respiration rate normal. Temperature normal. Oxygen saturation normal. Appearance: Anxious, Alert. Oriented X3. No acute distress. Head: Normal external exam. Normocephalic. Atraumatic. No Goode signs noted. No raccoon eyes noted Eyes: PERRLA. EOMI. Conjunctiva and sclera normal. Eyelids normal. ENT: TM's Normal. Pharynx normal. Uvula midline. Moist mucous membranes. No trismus noted. No drooling noted. No muffled voice noted. Neck: Normal inspection. Neck supple. FROM. No adenopathy. Thyroid Normal. No meningeal signs. No neck mass noted. CVS: Normal heart rate and rhythm. Heart sound normal. No murmurs noted. Pulses normal throughout. Respiratory: No respiratory distress. Painless inspiration. Breath sounds normal. No wheezes/rales/rhonchi noted. Chest nontender. No accessory muscle usage noted or decreased air movement noted. Abdomen: Soft and nontender. Bowel sounds normal in all 4 quadrants. No distention noted. No organomegaly noted. No visible injury noted. Back: No CVA tenderness. Full range of motion noted. Skin: Skin warm and dry. Normal skin color. Normal skin turgor. No rashes/lesions/lacerations noted. Extremities: No lower extremity edema. Extremities exhibit normal range of motion. Extremities nontender. Neuro: Oriented X 3. Cranial nerve exam: II-XII are grossly intact No motor deficit. No sensory deficit. Reflexes normal. Course Course Course Narrative: 42-year-old male with a chronic bilateral chest wall pain, no obvious trauma, unremarkable chest x-ray, patient had a multiple evaluation for chest pain in the past which was negative workup, patient was instructed to follow-up with a radio control crane operator to get a stress test done. Medical Decision Making Differential Diagnosis Differential Diagnoses: The differential diagnosis associated with the presentation includes (Chronic chest wall pain, ACS, pneumonia, pneumothorax, rib fracture, chest wall contusion, anxiety.) Lab Data MDM Lab Attestation statement: I reviewed the patient's lab results. 11/08/22 08:15 11/08/22 08:15 Labs: Lab Results 11/08/22 11/08/22 11/08/22 Range/Units 08:15 08:15 08:15 WBC 4.9 (4.8-10.8) X10*3/uL RBC 4.67 (4.60-5.80) X10*6/uL Hgb 13.4 L (14.0-18.0) g/dl Hct 39.3 L (42.0-52.0) % MCV 84.2 (80.0-98.0) fL MCH 28.7 (27.0-33.0) pg MCHC 34.1 (31.0-36.0) g/dl RDW 12.0 (11.0-16.0) % Plt Count 201 (160-400) X10*3/uL MPV 9.3 L (9.4-12.4) fL Immature Gran % (Auto) 0.2 (0.0-0.4) % Neut % (Auto) 37.0 L (45-73) % Lymph % (Auto) 48.5 H (20-40) % [place] % (Auto) 8.4 (2-11) % Eos % (Auto) 4.5 H (0-4) % Baso % (Auto) 1.4 (0-2) % Lymph # (Auto) 2.4 (1.2-4.9) X10*3/uL [place] # (Auto) 0.4 (0.1-1.2) X10*3/uL Eos # (Auto) 0.2 (0.0-0.4) X10*3/uL Baso # (Auto) 0.1 (0.0-0.2) X10*3/uL Abs Immat Gran (auto) 0.01 (0.00-0.03) X10*3/uL Absolute Neuts (auto) 1.8 L (2.0-8.3) x10*3/uL Absolute Nucleated RBC 0.000 (0.0-0.012) X10*3/uL Nucleated RBC % (auto) 0.0 (0.0-0.2) /100WBC Sodium 143 (135-145) mmol/L Potassium 3.9 (3.3-5.1) mmol/L Chloride 107 (96-108) mmol/L Carbon Dioxide 27 (22-29) mmol/L Anion Gap 13 (12-20) BUN 11 (9-16) mg/dL Creatinine 0.90 (0.5-1.4) mg/dL Estim Creat Clear Calc 104.5 Estimated GFR > 60 Random Glucose 92 (60-115) mg/dL Calcium 9.0 (8.4-10.2) mg/dL Troponin I High Sens (<3.5-35.0) ng/L Influenza Type A (PCR) NEGATIVE (Negative) Influenza Type B (PCR) NEGATIVE (Negative) RSV RNA Qual (PCR) NEGATIVE (Negative) SARS-CoV-2 RNA (RT-PCR) NEGATIVE (Negative) 11/08/22 Range/Units 08:15 WBC (4.8-10.8) X10*3/uL RBC (4.60-5.80) X10*6/uL Hgb (14.0-18.0) g/dl Hct (42.0-52.0) % MCV (80.0-98.0) fL MCH (27.0-33.0) pg MCHC (31.0-36.0) g/dl RDW (11.0-16.0) % Plt Count (160-400) X10*3/uL MPV (9.4-12.4) fL Immature Gran % (Auto) (0.0-0.4) % Neut % (Auto) (45-73) % Lymph % (Auto) (20-40) % [place] % (Auto) (2-11) % Eos % (Auto) (0-4) % Baso % (Auto) (0-2) % Lymph # (Auto) (1.2-4.9) X10*3/uL [place] # (Auto) (0.1-1.2) X10*3/uL Eos # (Auto) (0.0-0.4) X10*3/uL Baso # (Auto) (0.0-0.2) X10*3/uL Abs Immat Gran (auto) (0.00-0.03) X10*3/uL Absolute Neuts (auto) (2.0-8.3) x10*3/uL Absolute Nucleated RBC (0.0-0.012) X10*3/uL Nucleated RBC % (auto) (0.0-0.2) /100WBC Sodium (135-145) mmol/L Potassium (3.3-5.1) mmol/L Chloride (96-108) mmol/L Carbon Dioxide (22-29) mmol/L Anion Gap (12-20) BUN (9-16) mg/dL Creatinine (0.5-1.4) mg/dL Estim Creat Clear Calc Estimated GFR Random Glucose (60-115) mg/dL Calcium (8.4-10.2) mg/dL Troponin I High Sens 4.1 (<3.5-35.0) ng/L Influenza Type A (PCR) (Negative) Influenza Type B (PCR) (Negative) RSV RNA Qual (PCR) (Negative) SARS-CoV-2 RNA (RT-PCR) (Negative) Independent Interpretation I performed an independent interpretation of an: EKG (Sinus bradycardia at 57 beats per minutes, normal axis deviation, normal intervals, no ST-T changes.) and Plain X-Ray (No acute intrathoracic pathology.) Radiology Impression Discussion of test interpretation with radiology: I have reviewed the radiologist's reading. Discharge Plan Discharge Clinical Impression: Chest wall pain, Anxiety about health Patient Disposition: Home, Self-Care Instructions: Chest Wall Pain (ED) Prescriptions: No Action omeprazole 40 mg capsule,delayed release(DR/EC) 40 mg PO DAILY Qty: 90 1RF hydroxyzine HCl 25 mg tablet 25 mg PO BID PRN (Reason: anxiety) Qty: 30 0RF ibuprofen 600 mg tablet 600 mg PO Q6H PRN (Reason: pain) Qty: 30 0RF phenazopyridine 100 mg tablet 100 mg PO BID Qty: 6 0RF hydroxyzine HCl 50 mg tablet 50 mg PO BEDTIME Qty: 14 0RF ibuprofen 600 mg tablet 600 mg PO Q6H PRN (Reason: pain) Qty: 20 0RF fluticasone propionate [Flonase Allergy Relief] 50 mcg/actuation spray,suspension 1 spray intranasal BID Qty: 16 0RF Rx Instructions: administer into each nostril levocetirizine [24HR Allergy Relief] 5 mg tablet 5 mg PO DAILY Qty: 30 0RF gabapentin 100 mg capsule 100 mg PO BEDTIME Qty: 10 0RF bupropion HCl 150 mg tablet extended release 24 hr 150 mg PO QAM baclofen 10 mg tablet 10 mg PO TID sertraline 50 mg tablet 50 mg PO DAILY sertraline 100 mg tablet 100 mg PO DAILY naloxone 4 mg/actuation spray,non-aerosol 0 spray intranasal hydrocortisone 2.5 % cream with perineal applicator topical BID buprenorphine-naloxone 8-2 mg film 10 mg sublingual DAILY budesonide-formoterol [Symbicort] 160-4.5 mcg/actuation HFA aerosol inhaler 2 puff inhalation BID 30 Days Qty: 10.2 11RF pseudoephedrine HCl 120 mg tablet extended release 120 mg PO Q12H 30 Days Qty: 60 1RF mirtazapine 15 mg tablet 15 mg PO BEDTIME sennosides [senna] 8.6 mg tablet 8.6 - 17.2 mg PO BEDTIME PRN (Reason: constipation) Referrals: Rik Flaherty MD [Primary Care Provider] - Ike Amaya MD [Physician] -
--- NOTE | 2022-11-08 10:49 | PC.NURSE ---
Pt able to ambulate in from waiting room to stretcher, he is A/OX4. Sleeping when this technical document writer entered room. Pt breathing shallow, reporting sob and chest pain.
== END 2022-11-08 10:55 | disposition home or self-care (01) ==
PROVIDERS: Emergency Provider Emergency Medicine; PCP Internal Medicine
DX: R07.89 Other chest pain (principal); R06.02 Shortness of breath; M79.602 Pain in left arm; F41.1 Generalized anxiety disorder; F43.0 Acute stress reaction; Z20.822 Contact with and (suspected) exposure to COVID-19; Z20.828 Contact with and (suspected) exposure to other viral communicable diseases; Z79.899 Other long term (current) drug therapy; Z87.891 Personal history of nicotine dependence
CPT/HCPCS: 0241U; 36415; 71045; 80048; 84484; 85025; 93005; 99284

== ENCOUNTER 2022-11-13 23:27 | Emergency (ER) | payer OTHER, SELFPAY | END 2022-11-14 00:14 | disposition left against medical advice (07) | PROVIDERS: Emergency Provider Emergency Medicine | DX: R42 Dizziness and giddiness (principal) ==

== ENCOUNTER → 2022-12-17 13:01 | Outpatient (BNVA) | payer OTHER, SELFPAY | PROVIDERS: PCP Internal Medicine; Visit Provider Hospitalist | DX: R06.02 Shortness of breath (principal); R07.89 Other chest pain; J31.0 Chronic rhinitis; J32.9 Chronic sinusitis, unspecified; U09.9 Post COVID-19 condition, unspecified; J34.2 Deviated nasal septum; U07.0 Vaping-related disorder | CPT/HCPCS: 99212 ==

== ENCOUNTER 2022-12-25 21:41 | Emergency (ER) | payer OTHER, SELFPAY ==
[2022-12-25 22:25] VITALS: BP 123/87; PULSE 68; RESP 16; TEMP 36.8; O2SAT 98; BMI 27.4
[2022-12-25 22:55] LABS: MANUAL DIFF FLAG NO
[2022-12-25 22:57] LABS: Basophils Percent Auto 0.7 % (0-2); Eosinophils Absolute Auto 0.1 X10*3/uL (0.0-0.4); Eosinophils Percent Auto 1.9 % (0-4); Hematocrit 39.5 % (42.0-52.0); Hemoglobin 13.6 g/dl (14.0-18.0); Lymphocytes Absolute Auto 2.5 X10*3/uL (1.2-4.9); Lymphocytes Percent Auto 43.1 % (20-40); Mean Corpuscular HGB Conc 34.4 g/dl (31.0-36.0); Mean Corpuscular Hemoglobin 29.1 pg (27.0-33.0); Mean Corpuscular Volume 84.4 fL (80.0-98.0); Mean Platelet Volume 9.3 fL (9.4-12.4); Monocytes Absolute Auto 0.8 X10*3/uL (0.1-1.2); Monocytes Percent Auto 13.4 % (2-11); Neutrophils Absolute Auto 2.4 x10*3/uL (2.0-8.3); Neutrophils Percent Auto 40.9 % (45-73); Platelet Count 172 X10*3/uL (160-400); Red Blood Count 4.68 X10*6/uL (4.60-5.80); Red Cell Distribution Width 12.1 % (11.0-16.0); White Blood Count 5.8 X10*3/uL (4.8-10.8)
[2022-12-25 23:10] LABS: Alanine Aminotransferase 167 U/L (0-40); Albumin Level 4.4 g/dL (3.5-5.0); Alkaline Phosphatase 71 U/L (39-117); Anion Gap 12 (12-20); Aspartate Amino Transferase 68 U/L (5-37); Bilirubin Total 0.5 mg/dL (0.0-1.0); Blood Urea Nitrogen 12 mg/dL (9-16); Calcium 9.1 mg/dL (8.4-10.2); Carbon Dioxide 29 mmol/L (22-29); Chloride 105 mmol/L (96-108); Creatinine Clr Calc Pharmacy 92.2; Estimated Glomerular Filt Rate > 60; Glucose Random 92 mg/dL (60-115); Lipase 17 U/L (8-78); Potassium 4.9 mmol/L (3.3-5.1); Sodium 141 mmol/L (135-145); Total Protein 7.4 g/dL (6.5-8.0)
--- NOTE | 2022-12-25 23:43 | ED.GENADULT ---
HPI - General Adult General Chief complaint: Abdominal Pain Stated complaint: sore throat, pain under arms, blood in stool Time Seen by Provider: 12/25/22 23:19 Source: patient Mode of arrival: ambulatory Limitations: no limitations History of Present Illness HPI narrative: Patient comes to the emergency room complaining of chronic bilateral rib pain for over 2 months. Patient denies any abdominal pain. Patient also complaining of a sore throat. Patient denies coughing, congestion. No difficulty breathing. Denies nausea vomiting diarrhea. Related Data Home Medications Medication Instructions Recorded Confirmed bupropion HCl 150 mg 24 hr tablet, 150 mg PO QAM 06/04/20 09/19/22 extended release sertraline 100 mg tablet 100 mg PO DAILY 01/07/22 09/19/22 sertraline 50 mg tablet 50 mg PO DAILY 01/07/22 09/19/22 mirtazapine 15 mg tablet 15 mg PO BEDTIME 04/14/22 09/19/22 hydrocortisone 2.5 % topical cream topical BID 04/22/22 09/19/22 with perineal applicator naloxone 4 mg/actuation nasal spray 0 spray intranasal 04/22/22 09/19/22 buprenorphine 8 mg-naloxone 2 mg 10 mg sublingual DAILY 06/12/22 09/19/22 sublingual film sennosides 8.6 mg tablet (senna) 8.6 - 17.2 mg PO BEDTIME PRN 09/18/22 09/19/22 constipation Previous Rx's Medication Instructions Recorded phenazopyridine 100 mg tablet 100 mg PO BID 6 doses #6 tabs 02/19/22 hydroxyzine HCl 50 mg tablet 50 mg PO BEDTIME #14 tabs 04/06/22 omeprazole 40 mg capsule,delayed 40 mg PO DAILY #90 caps 05/18/22 release fluticasone propionate 50 1 spray intranasal BID #16 grams 05/30/22 mcg/actuation nasal spray,suspension (Flonase Allergy Relief) levocetirizine 5 mg tablet (24HR 5 mg PO DAILY #30 tabs 05/30/22 Allergy Relief) budesonide-formoterol HFA 160 2 puff inhalation BID 30 days 06/12/22 mcg-4.5 mcg/actuation aerosol #10.2 grams inhaler (Symbicort) pseudoephedrine HCl 120 mg 120 mg PO Q12H 30 days #60 tabs 06/12/22 tablet,extended release gabapentin 100 mg capsule 100 mg PO BEDTIME #10 caps 08/14/22 ibuprofen 600 mg tablet 600 mg PO Q6H PRN pain #30 tabs 11/03/22 diclofenac sodium 1 % topical gel 4 g topical QID 30 days #100 grams 12/17/22 (Voltaren Arthritis Pain) Allergies Allergy/AdvReac Type Severity Reaction Status Date / Time shellfish Allergy Unknown rash Uncoded 12/25/22 22:33 Review of Systems Review of Systems: Constitutional : No Weight loss, No Fever, No Chills, No Night Sweats, No Fatigue, No Malaise ENT/Mouth : No Hearing loss, No Ear Pain, No Nasal Congestion, No Sinus Pain, No Hoarseness, complaining of sore throat, No Rhinorrhea, No Swallowing Difficulty Eyes: No Eye Pain, No Swelling, No Redness, No Foreign Body, No Discharge, No Vision Changes Cardiovascular : No Chest Pain, No SOB, No Dyspnea on Exertion, No Orthopnea, No Edema, No Palpitations Respiratory : No Cough, No Sputum, No Wheezing, No Smoke Exposure, No Dyspnea Gastrointestinal : No Nausea, No Vomiting, No Diarrhea, No Constipation, No abdominal Pain, No Hematochezia, No Melena Genitourinary : no irregular bleeding, No Dysuria, No Urinary Frequency, No Hematuria, No Urinary Incontinence, No Urgency, No Flank Pain, No Urinary Flow Changes, No Hesitancy Musculoskeletal : Complaining of bilateral rib pain for several months, No Myalgias, No Joint Swelling Skin : No Skin Lesions, No rash Neuro : No Weakness, No Numbness, No Paresthesias, No Loss of Consciousness, No Dizziness, No Headache Psych : No Anxiety/Panic, No Depression, No SI/HI/AH/VH, No Social Issues, Heme/Lymph: No Bruising, No Bleeding,No Lymphadenopathy Endocrine : No Polyuria, No Polydipsia, No Temperature Intolerance [facility] Past Medical History Medical History Anxiety COVID-19 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 Mother No problems noted. Paternal Aunt Lung cancer Social History Social History Alcohol intake: former Patient Tobacco Use Status: Former Tobacco user Tobacco use type: Cigarette Years Smoked: 23 Years e-Cigarette/Vaping Use: Currently Using Advance Directives: No Advance Directives Information Provided: Yes Physical Exam ED Vital Signs: Vital Signs - 24 hr 12/25/22 22:25 Temperature 98.2 F Pulse Rate 68 Respiratory Rate 16 Blood Pressure 123/87 Pulse Oximetry 98 Oxygen Delivery Method Room Air BMI result Body Mass Index 27.4 Const Other: Appearance: Alert. Oriented X3. No acute distress. Well-appearing Eyes: Pupils equal, round and reactive to light. ENT: Pharynx normal. Neck: Normal inspection. Neck supple. No lymph nodes noted. No crepitus CVS: Normal heart rate and rhythm. Pulses normal. Normal S1 and S2 Respiratory: No respiratory distress. Breath sounds normal. No Wheezing. No rales Abdomen: Soft and nontender. No rigidity. No distention. Musculoskeletal: Pain to palpation in the lateral aspect of the thorax below the armpits, no palpable lymph nodes Skin: Skin warm and dry. Normal skin color. Normal skin turgor. Extremities: No lower extremity edema. No Lacerations. No Rash Neuro: Oriented X 3. No motor deficit. No sensory deficit. Moving all extremities. No slurred speech. CN 2 through 12 grossly intact Psych: calm, cooperative, normal affect Medical Decision Making Medical Decision Making MDM Narrative: -patient has chronic bilateral rib pain. Patient has been evaluated multiple times for the same complaint, x-rays have been negative. Patient states that has not been any changes in his symptoms for several months. Patient will follow-up with his primary care physician patient has no cough, shortness of breath. Wells criteria for pulmonary embolism score is 0 -oropharynx normal, rapid strep test negative Differential Diagnosis Differential Diagnoses: The differential diagnosis associated with the presentation includes (Costochondritis, anxiety, pleurisy) Lab Data 12/25/22 22:47 12/25/22 22:47 Labs: Lab Results 12/25/22 12/25/22 12/25/22 Range/Units 22:47 22:47 23:48 WBC 5.8 (4.8-10.8) X10*3/uL RBC 4.68 (4.60-5.80) X10*6/uL Hgb 13.6 L (14.0-18.0) g/dl Hct 39.5 L (42.0-52.0) % MCV 84.4 (80.0-98.0) fL MCH 29.1 (27.0-33.0) pg MCHC 34.4 (31.0-36.0) g/dl RDW 12.1 (11.0-16.0) % Plt Count 172 (160-400) X10*3/uL MPV 9.3 L (9.4-12.4) fL Immature Gran % (Auto) 0.0 (0.0-0.4) % Neut % (Auto) 40.9 L (45-73) % Lymph % (Auto) 43.1 H (20-40) % [place] % (Auto) 13.4 H (2-11) % Eos % (Auto) 1.9 (0-4) % Baso % (Auto) 0.7 (0-2) % Lymph # (Auto) 2.5 (1.2-4.9) X10*3/uL [place] # (Auto) 0.8 (0.1-1.2) X10*3/uL Eos # (Auto) 0.1 (0.0-0.4) X10*3/uL Baso # (Auto) 0.0 (0.0-0.2) X10*3/uL Abs Immat Gran (auto) 0.00 (0.00-0.03) X10*3/uL Absolute Neuts (auto) 2.4 (2.0-8.3) x10*3/uL Absolute Nucleated RBC 0.000 (0.0-0.012) X10*3/uL Nucleated RBC % (auto) 0.0 (0.0-0.2) /100WBC Sodium 141 (135-145) mmol/L Potassium 4.9 D (3.3-5.1) mmol/L Chloride 105 (96-108) mmol/L Carbon Dioxide 29 (22-29) mmol/L Anion Gap 12 (12-20) BUN 12 (9-16) mg/dL Creatinine 1.02 (0.5-1.4) mg/dL Estim Creat Clear Calc 92.2 Estimated GFR > 60 Random Glucose 92 (60-115) mg/dL Calcium 9.1 (8.4-10.2) mg/dL Total Bilirubin 0.5 (0.0-1.0) mg/dL AST 68 H (5-37) U/L ALT 167 H (0-40) U/L Alkaline Phosphatase 71 (39-117) U/L Total Protein 7.4 (6.5-8.0) g/dL Albumin 4.4 (3.5-5.0) g/dL Lipase 17 (8-78) U/L S. pyogenes GrpA SUKI Negative (Negative) Discharge Plan Discharge Clinical Impression: Costochondritis, Acute viral pharyngitis Patient Disposition: Home, Self-Care Instructions: Pharyngitis (ED), Costochondritis (ED) Additional Instructions: Please follow-up with your primary care physician tomorrow. If you have any worsening or new symptoms, please return to the emergency room or call 911 Prescriptions: No Action omeprazole 40 mg capsule,delayed release(DR/EC) 40 mg PO DAILY Qty: 90 1RF ibuprofen 600 mg tablet 600 mg PO Q6H PRN (Reason: pain) Qty: 30 0RF phenazopyridine 100 mg tablet 100 mg PO BID Qty: 6 0RF hydroxyzine HCl 50 mg tablet 50 mg PO BEDTIME Qty: 14 0RF fluticasone propionate [Flonase Allergy Relief] 50 mcg/actuation spray,suspension 1 spray intranasal BID Qty: 16 0RF Rx Instructions: administer into each nostril levocetirizine [24HR Allergy Relief] 5 mg tablet 5 mg PO DAILY Qty: 30 0RF gabapentin 100 mg capsule 100 mg PO BEDTIME Qty: 10 0RF bupropion HCl 150 mg tablet extended release 24 hr 150 mg PO QAM sertraline 50 mg tablet 50 mg PO DAILY sertraline 100 mg tablet 100 mg PO DAILY naloxone 4 mg/actuation spray,non-aerosol 0 spray intranasal hydrocortisone 2.5 % cream with perineal applicator topical BID buprenorphine-naloxone 8-2 mg film 10 mg sublingual DAILY budesonide-formoterol [Symbicort] 160-4.5 mcg/actuation HFA aerosol inhaler 2 puff inhalation BID 30 Days Qty: 10.2 11RF pseudoephedrine HCl 120 mg tablet extended release 120 mg PO Q12H 30 Days Qty: 60 1RF diclofenac sodium [Voltaren Arthritis Pain] 1 % gel 4 g topical QID 30 Days Qty: 100 0RF Rx Instructions: apply to single knee, ankle, foot; for foot includes sole/toes/top of foot mirtazapine 15 mg tablet 15 mg PO BEDTIME sennosides [senna] 8.6 mg tablet 8.6 - 17.2 mg PO BEDTIME PRN (Reason: constipation)
[2022-12-26 00:05] LABS: IDNOW Serial# 6674DD1D; Strep A Nucleic Acid Negative (Negative)
== END 2022-12-26 00:27 | disposition home or self-care (01) ==
PROVIDERS: Emergency Provider Emergency Medicine; PCP Internal Medicine
DX: M94.0 Chondrocostal junction syndrome [Tietze] (principal); J02.9 Acute pharyngitis, unspecified; Z20.822 Contact with and (suspected) exposure to COVID-19; Z20.828 Contact with and (suspected) exposure to other viral communicable diseases; Z79.899 Other long term (current) drug therapy
CPT/HCPCS: 36415; 80053; 83690; 85025; 87651; 99282; 99283

== ENCOUNTER 2023-01-04 10:50 | Outpatient (REF) | payer OTHER, SELFPAY ==
[2023-01-05 15:28] LABS: H Pylori Breath Test Negative (Negative)
== END 2023-01-04 10:51 | disposition home or self-care (01) ==
LOC: HO.LNP 10:50
PROVIDERS: PCP Internal Medicine; Visit Provider Physician Assistant
DX: A04.8 Other specified bacterial intestinal infections (principal); K21.9 Gastro-esophageal reflux disease without esophagitis; R74.01 Elevation of levels of liver transaminase levels; D64.9 Anemia, unspecified
CPT/HCPCS: 83013; 99202

== ENCOUNTER 2023-01-06 18:45 | Emergency (ER) | payer OTHER, SELFPAY ==
--- NOTE | ~2023-01-06 | CT_ITS ---
EXAMINATION: CT ANGIOGRAM OF THE CHEST WITH AND WITHOUT CONTRAST (CT PULMONARY ANGIOGRAM FOR PE) CLINICAL INFORMATION: Reason for Exam + sob + dimer COMPARISON: Chest x-ray 01/06/2023. CTA chest 04/06/2022 TECHNIQUE: Prior to contrast administration, noncontrast localization images were obtained. Subsequently, multidetector volumetric imaging was performed from the thoracic inlet to below the diaphragms following the administration of 80 mL Omnipaque 350 intravenous contrast. No contrast reaction reported Sagittal, coronal, and MIP oblique sagittal reformatted images were obtained on the CT workstation, uploaded to PACS, and reviewed. This CT examination was performed using dose optimization techniques as appropriate, variously including the following: *Automated exposure control *Adjustment of mA and/or kV according to patient size (this includes techniques or standardized protocols for targeted exams where dose is matched to indication/reason for exam; i.e. extremities or head) *Use of iterative reconstruction technique Total exam dose-length product 260 mGy-cm FINDINGS: QUALITY OF STUDY/CONTRAST BOLUS: Satisfactory. PULMONARY ARTERIES: No pulmonary emboli. THORACIC AORTA: No aneurysm. LUNG: No focal consolidation, nodules or masses. PLEURA: No pleural effusion or pneumothorax. MEDIASTINUM: Normal heart size. No pericardial effusion. No hilar or mediastinal lymphadenopathy. No evidence of septal bowing or right heart strain. CORONARY ARTERY CALCIFICATION: None visualized on this study. CHEST WALL/AXILLA: No axillary or internal mammary lymphadenopathy. OSSEOUS STRUCTURES: No acute or suspicious osseous abnormality. UPPER ABDOMEN: Unremarkable. No reflux of contrast into the hepatic veins to suggest elevated right heart pressures. CT/CT angio chest PE protocol IMPRESSION: No evidence of PE. No evidence of aortic dissection. Or aneurysm. VTE: negative
--- NOTE | ~2023-01-06 | XR_ITS ---
EXAMINATION: XR CHEST CLINICAL INFORMATION: Shortness of breath COMPARISON: 11/08/2022 TECHNIQUE: Frontal view of the chest was obtained. FINDINGS: No significant abnormality is noted involving the heart, lungs, mediastinum, bony thorax or soft tissues. XR/XR chest 1V IMPRESSION: Unremarkable examination.
[2023-01-06 18:57] VITALS: BP 125/80; PULSE 69; RESP 18; TEMP 36.6; O2SAT 98; BMI 27.0
--- NOTE | 2023-01-06 18:59 | ECG_ITS ---
Test Reason : sob Blood Pressure : / mmHG Vent. Rate : 058 BPM Atrial Rate : 058 BPM P-R Int : 142 ms QRS Dur : 088 ms QT Int : 412 ms P-R-T Axes : 040 039 013 degrees QTc Int : 404 ms Sinus bradycardia Otherwise normal ECG When compared with ECG of 08-NOV-2022 08:03, No significant change was found Referred By: Sreedhar Hall Electronically Signed By:BRE RUHT MD
--- NOTE | 2023-01-06 19:03 | ED.GENADULT ---
HPI - General Adult General Chief complaint: General Medical <JEFFREY Candelario - Last Filed: 01/06/23 19:04> Stated complaint: difficulty breathing <JEFFREY Candelario - Last Filed: 01/06/23 19:04> Time Seen by Provider: 01/06/23 21:26 <JEFFREY Candelario - Last Filed: 01/06/23 19:04> Source: patient <Darcie Harper MD - Last Filed: 01/06/23 21:43> Mode of arrival: ambulatory <Darcie Harper MD - Last Filed: 01/06/23 21:43> Limitations: no limitations <Darcie Harper MD - Last Filed: 01/06/23 21:43> History of Present Illness HPI narrative: Patient comes to the emergency room complaining of bilateral axillary pain. Patient has been seen multiple times in the emergency room for the same complaint. Patient denies coughing, chest pain, shortness of breath. Patient states that he was on his way to a and is sore Axon there the axilla started hurting. <Darcie Harper MD - Last Filed: 01/06/23 21:43> Related Data Home medications: Home Medications Medication Instructions Recorded Confirmed bupropion HCl 150 mg 24 hr tablet, 150 mg PO QAM 06/04/20 01/04/23 extended release hydrocortisone 2.5 % topical cream topical BID 04/22/22 01/04/23 with perineal applicator naloxone 4 mg/actuation nasal spray 0 spray intranasal 04/22/22 01/04/23 buprenorphine 8 mg-naloxone 2 mg 10 mg sublingual DAILY 06/12/22 01/04/23 sublingual film sennosides 8.6 mg tablet (senna) 8.6 - 17.2 mg PO BEDTIME PRN 09/18/22 01/04/23 constipation duloxetine 60 mg capsule,delayed 60 mg PO DAILY 01/04/23 01/04/23 release mirtazapine 30 mg tablet 30 mg PO BEDTIME 01/04/23 01/04/23 Previous Rx's Medication Instructions Recorded hydroxyzine HCl 50 mg tablet 50 mg PO BEDTIME #14 tabs 04/06/22 fluticasone propionate 50 1 spray intranasal BID #16 grams 05/30/22 mcg/actuation nasal spray,suspension (Flonase Allergy Relief) levocetirizine 5 mg tablet (24HR 5 mg PO DAILY #30 tabs 05/30/22 Allergy Relief) budesonide-formoterol HFA 160 2 puff inhalation BID 30 days 06/12/22 mcg-4.5 mcg/actuation aerosol #10.2 grams inhaler (Symbicort) gabapentin 100 mg capsule 100 mg PO BEDTIME #10 caps 08/14/22 ibuprofen 600 mg tablet 600 mg PO Q6H PRN pain #30 tabs 11/03/22 diclofenac sodium 1 % topical gel 4 g topical QID 30 days #100 grams 12/17/22 (Voltaren Arthritis Pain) pantoprazole 20 mg tablet,delayed 40 mg PO ONCE 30 days #60 tabs 01/04/23 release <JEFFREY Candelario Last Filed: 01/06/23 19:04> Allergies/adverse reactions: Allergies Allergy/AdvReac Type Severity Reaction Status Date / Time No Known Drug Allergies Allergy Unknown none Verified 01/04/23 11:08 shellfish Allergy Unknown rash Uncoded 12/25/22 22:33 <JEFFREY Candelario Last Filed: 01/06/23 19:04> Review of Systems Review of Systems: Constitutional : No Weight loss, No Fever, No Chills, No Night Sweats, No Fatigue, No Malaise ENT/Mouth : No Hearing loss, No Ear Pain, No Nasal Congestion, No Sinus Pain, No Hoarseness, No sore throat, No Rhinorrhea, No Swallowing Difficulty Eyes: No Eye Pain, No Swelling, No Redness, No Foreign Body, No Discharge, No Vision Changes Cardiovascular : No Chest Pain, No SOB, No Dyspnea on Exertion, No Orthopnea, No Edema, No Palpitations Respiratory : No Cough, No Sputum, No Wheezing, No Smoke Exposure, No Dyspnea Gastrointestinal : No Nausea, No Vomiting, No Diarrhea, No Constipation, No abdominal Pain, No Hematochezia, No Melena Genitourinary : no irregular bleeding, No Dysuria, No Urinary Frequency, No Hematuria, No Urinary Incontinence, No Urgency, No Flank Pain, No Urinary Flow Changes, No Hesitancy Musculoskeletal : Pain under the axilla, No joint pain, No Myalgias, No Joint Swelling Skin : No Skin Lesions, No rash Neuro : No Weakness, No Numbness, No Paresthesias, No Loss of Consciousness, No Dizziness, No Headache Psych : No Anxiety/Panic, No Depression, No SI/HI/AH/VH, No Social Issues, Heme/Lymph: No Bruising, No Bleeding,No Lymphadenopathy Endocrine : No Polyuria, No Polydipsia, No Temperature Intolerance <Darcie Harper MD - Last Filed: 01/06/23 21:43> [facility] Past Medical History Medical History: Medical History Anxiety COVID-19 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 Mother No problems noted. Paternal Aunt Lung cancer <JEFFREY Candelario - Last Filed: 01/06/23 19:04> Social History Social History: Social History Alcohol intake: former Patient Tobacco Use Status: Former Tobacco user Tobacco use type: Cigarette Years Smoked: 23 Years e-Cigarette/Vaping Use: Currently Using Advance Directives: No Advance Directives Information Provided: No <JEFFREY Candelario - Last Filed: 01/06/23 19:04> Physical Exam ED Vital Signs: Vital Signs - 24 hr 01/06/23 18:57 01/06/23 20:00 Temperature 98 F 97 F Pulse Rate 69 52 Respiratory Rate 18 16 Blood Pressure 125/80 110/62 Pulse Oximetry 98 99 Oxygen Delivery Method Room Air Room Air BMI result Body Mass Index 27.0 <JEFFREY Candelario Last Filed: 01/06/23 19:04> Vital Signs - 24 hr 01/06/23 18:57 01/06/23 20:00 Temperature 98 F 97 F Pulse Rate 69 52 Respiratory Rate 18 16 Blood Pressure 125/80 110/62 Pulse Oximetry 98 99 Oxygen Delivery Method Room Air Room Air BMI result Body Mass Index 27.0 <Darcie Harper MD - Last Filed: 01/06/23 21:43> Const Other: Appearance: Alert. Oriented X3. No acute distress. Eyes: Pupils equal, round and reactive to light. ENT: Pharynx normal. Neck: Normal inspection. Neck supple. No lymph nodes noted. No crepitus CVS: Normal heart rate and rhythm. Pulses normal. Normal S1 and S2 Respiratory: No respiratory distress. Breath sounds normal. No Wheezing. No rales Abdomen: Soft and nontender. No rigidity. No distention. Skin: Skin warm and dry. Normal skin color. Normal skin turgor. Extremities: No lower extremity edema. No Lacerations. No Rash Neuro: Oriented X 3. No motor deficit. No sensory deficit. Moving all extremities. No slurred speech. CN 2 through 12 grossly intact Psych: calm, cooperative, normal affect <Darcie Harper MD - Last Filed: 01/06/23 21:43> Course Course Course Narrative: This is an RME: Additional HPI, ROS, PE not included below will be deferred to primary provider. this is a 42-year-old male presenting to the emergency department for evaluation of shortness of breath that started prior to arrival however has been experiencing similar episodes like this for the past 2 weeks, patient tells me he was driving to his father's when he suddenly became short of breath, also experiencing bilateral chest discomfort, nonradiating, without numbness or tingling or radiation down extremities. Patient does have a history of anxiety however he states this felt different. Physical exam benign plan basic labs, EKG <JEFFREY Candelario - Last Filed: 01/06/23 19:04> Medications Administered Discontinued Medications Generic Name Dose Route Start Last Admin Trade Name Freq PRN Reason Stop Dose Admin Iohexol 100 ml 01/06/23 21:15 01/06/23 21:15 Iohexol 350 Mg/Ml 100 Ml Infus..Btl IV 01/06/23 21:16 65 ml ONCE ONE Administration <JEFFREY Candelario - Last Filed: 01/06/23 19:04> Medications Administered Discontinued Medications Generic Name Dose Route Start Last Admin Trade Name Minor PRN Reason Stop Dose Admin Iohexol 100 ml 01/06/23 21:15 01/06/23 21:15 Iohexol 350 Mg/Ml 100 Ml Infus..Btl IV 01/06/23 21:16 65 ml ONCE ONE Administration <Darcie Harper MD - Last Filed: 01/06/23 21:43> Medical Decision Making Medical Decision Making [facility] Narrative: -patient's physical exam is normal -labs normal, D-dimer was slightly elevated, CTA negative for pulmonary embolism. -patient's symptoms are likely secondary to anxiety. -patient has a an appointment with his PCP tomorrow <Darcie Harper MD - Last Filed: 01/06/23 21:43> Lab Data [facility] Lab Attestation statement: I reviewed the patient's lab results. <Darcie Harper MD - Last Filed: 01/06/23 21:43> Result Diagrams: 01/06/23 19:37 01/06/23 19:37 <JEFFREY Candelario - Last Filed: 01/06/23 19:04> Labs: Lab Results 01/06/23 01/06/23 01/06/23 Range/Units 19:31 19:37 19:37 WBC 5.2 (4.8-10.8) X10*3/uL RBC 4.74 (4.60-5.80) X10*6/uL Hgb 13.7 L (14.0-18.0) g/dl Hct 39.8 L (42.0-52.0) % MCV 84.0 (80.0-98.0) fL MCH 28.9 (27.0-33.0) pg MCHC 34.4 (31.0-36.0) g/dl RDW 11.9 (11.0-16.0) % Plt Count 269 D (160-400) X10*3/uL MPV 9.3 L (9.4-12.4) fL Immature Gran % (Auto) 0.2 (0.0-0.4) % Neut % (Auto) 46.3 (45-73) % Lymph % (Auto) 40.3 H (20-40) % [place] % (Auto) 9.4 (2-11) % Eos % (Auto) 2.3 (0-4) % Baso % (Auto) 1.5 (0-2) % Lymph # (Auto) 2.1 (1.2-4.9) X10*3/uL [place] # (Auto) 0.5 (0.1-1.2) X10*3/uL Eos # (Auto) 0.1 (0.0-0.4) X10*3/uL Baso # (Auto) 0.1 (0.0-0.2) X10*3/uL Abs Immat Gran (auto) 0.01 (0.00-0.03) X10*3/uL Absolute Neuts (auto) 2.4 (2.0-8.3) x10*3/uL Absolute Nucleated RBC 0.000 (0.0-0.012) X10*3/uL Nucleated RBC % (auto) 0.0 (0.0-0.2) /100WBC D-Dimer High Sensitivty 293 NG/ML Sodium (135-145) mmol/L Potassium (3.3-5.1) mmol/L Chloride (96-108) mmol/L Carbon Dioxide (22-29) mmol/L Anion Gap (12-20) BUN (9-16) mg/dL Creatinine (0.5-1.4) mg/dL Estim Creat Clear Calc Estimated GFR Random Glucose (60-115) mg/dL Calcium (8.4-10.2) mg/dL Magnesium (1.6-2.6) mg/dL Total Bilirubin (0.0-1.0) mg/dL AST (5-37) U/L ALT (0-40) U/L Alkaline Phosphatase (39-117) U/L Troponin I High Sens (<3.5-35.0) ng/L B-Natriuretic Peptide (<100) pg/mL Total Protein (6.5-8.0) g/dL Albumin (3.5-5.0) g/dL Urine Color Yellow Urine Appearance Clear Urine pH 7.0 (5.0-9.0) Ur Specific [place] 1.020 (1.005-1.025) Urine Protein Negative (Neg-Trace) mg/dL Urine Glucose (UA) Negative (Negative) mg/dL Urine Ketones Negative (Negative) mg/dL Urine Blood Negative (Negative) Urine Nitrite Negative (Negative) Ur Leukocyte Esterase Negative (Negative) COVID-19 ([facility]) (Negative) COVID-19 Clin Com 01/06/23 01/06/23 01/06/23 Range/Units 19:37 19:37 19:37 WBC (4.8-10.8) X10*3/uL RBC (4.60-5.80) X10*6/uL Hgb (14.0-18.0) g/dl Hct (42.0-52.0) % MCV (80.0-98.0) fL MCH (27.0-33.0) pg MCHC (31.0-36.0) g/dl RDW (11.0-16.0) % Plt Count (160-400) X10*3/uL MPV (9.4-12.4) fL Immature Gran % (Auto) (0.0-0.4) % Neut % (Auto) (45-73) % Lymph % (Auto) (20-40) % [place] % (Auto) (2-11) % Eos % (Auto) (0-4) % Baso % (Auto) (0-2) % Lymph # (Auto) (1.2-4.9) X10*3/uL [place] # (Auto) (0.1-1.2) X10*3/uL Eos # (Auto) (0.0-0.4) X10*3/uL Baso # (Auto) (0.0-0.2) X10*3/uL Abs Immat Gran (auto) (0.00-0.03) X10*3/uL Absolute Neuts (auto) (2.0-8.3) x10*3/uL Absolute Nucleated RBC (0.0-0.012) X10*3/uL Nucleated RBC % (auto) (0.0-0.2) /100WBC D-Dimer High Sensitivty NG/ML Sodium 144 (135-145) mmol/L Potassium 4.5 (3.3-5.1) mmol/L Chloride 107 (96-108) mmol/L Carbon Dioxide 31 H (22-29) mmol/L Anion Gap 11 L (12-20) BUN 12 (9-16) mg/dL Creatinine 0.95 (0.5-1.4) mg/dL Estim Creat Clear Calc 91.4 Estimated GFR > 60 Random Glucose 89 (60-115) mg/dL Calcium 9.4 (8.4-10.2) mg/dL Magnesium 2.1 (1.6-2.6) mg/dL Total Bilirubin 0.7 (0.0-1.0) mg/dL AST 42 H (5-37) U/L ALT 87 H (0-40) U/L Alkaline Phosphatase 68 (39-117) U/L Troponin I High Sens 4.2 (<3.5-35.0) ng/L B-Natriuretic Peptide < 10 (<100) pg/mL Total Protein 7.3 (6.5-8.0) g/dL Albumin 4.2 (3.5-5.0) g/dL Urine Color Urine Appearance Urine pH (5.0-9.0) Ur Specific [place] (1.005-1.025) Urine Protein (Neg-Trace) mg/dL Urine Glucose (UA) (Negative) mg/dL Urine Ketones (Negative) mg/dL Urine Blood (Negative) Urine Nitrite (Negative) Ur Leukocyte Esterase (Negative) COVID-19 ([facility]) (Negative) COVID-19 Clin Com 01/06/23 Range/Units 19:37 WBC (4.8-10.8) X10*3/uL RBC (4.60-5.80) X10*6/uL Hgb (14.0-18.0) g/dl Hct (42.0-52.0) % MCV (80.0-98.0) fL MCH (27.0-33.0) pg MCHC (31.0-36.0) g/dl RDW (11.0-16.0) % Plt Count (160-400) X10*3/uL MPV (9.4-12.4) fL Immature Gran % (Auto) (0.0-0.4) % Neut % (Auto) (45-73) % Lymph % (Auto) (20-40) % [place] % (Auto) (2-11) % Eos % (Auto) (0-4) % Baso % (Auto) (0-2) % Lymph # (Auto) (1.2-4.9) X10*3/uL [place] # (Auto) (0.1-1.2) X10*3/uL Eos # (Auto) (0.0-0.4) X10*3/uL Baso # (Auto) (0.0-0.2) X10*3/uL Abs Immat Gran (auto) (0.00-0.03) X10*3/uL Absolute Neuts (auto) (2.0-8.3) x10*3/uL Absolute Nucleated RBC (0.0-0.012) X10*3/uL Nucleated RBC % (auto) (0.0-0.2) /100WBC D-Dimer High Sensitivty NG/ML Sodium (135-145) mmol/L Potassium (3.3-5.1) mmol/L Chloride (96-108) mmol/L Carbon Dioxide (22-29) mmol/L Anion Gap (12-20) BUN (9-16) mg/dL Creatinine (0.5-1.4) mg/dL Estim Creat Clear Calc Estimated GFR Random Glucose (60-115) mg/dL Calcium (8.4-10.2) mg/dL Magnesium (1.6-2.6) mg/dL Total Bilirubin (0.0-1.0) mg/dL AST (5-37) U/L ALT (0-40) U/L Alkaline Phosphatase (39-117) U/L Troponin I High Sens (<3.5-35.0) ng/L B-Natriuretic Peptide (<100) pg/mL Total Protein (6.5-8.0) g/dL Albumin (3.5-5.0) g/dL Urine Color Urine Appearance Urine pH (5.0-9.0) Ur Specific [place] (1.005-1.025) Urine Protein (Neg-Trace) mg/dL Urine Glucose (UA) (Negative) mg/dL Urine Ketones (Negative) mg/dL Urine Blood (Negative) Urine Nitrite (Negative) Ur Leukocyte Esterase (Negative) COVID-19 ([facility]) Negative (Negative) COVID-19 Clin Com See Note <JEFFREY Candelario - Last Filed: 05/03/23 19:04> Lab Results 01/06/23 01/06/23 01/06/23 Range/Units 19:31 19:37 19:37 WBC 5.2 (4.8-10.8) X10*3/uL RBC 4.74 (4.60-5.80) X10*6/uL Hgb 13.7 L (14.0-18.0) g/dl Hct 39.8 L (42.0-52.0) % MCV 84.0 (80.0-98.0) fL MCH 28.9 (27.0-33.0) pg MCHC 34.4 (31.0-36.0) g/dl RDW 11.9 (11.0-16.0) % Plt Count 269 D (160-400) X10*3/uL MPV 9.3 L (9.4-12.4) fL Immature Gran % (Auto) 0.2 (0.0-0.4) % Neut % (Auto) 46.3 (45-73) % Lymph % (Auto) 40.3 H (20-40) % [place] % (Auto) 9.4 (2-11) % Eos % (Auto) 2.3 (0-4) % Baso % (Auto) 1.5 (0-2) % Lymph # (Auto) 2.1 (1.2-4.9) X10*3/uL [place] # (Auto) 0.5 (0.1-1.2) X10*3/uL Eos # (Auto) 0.1 (0.0-0.4) X10*3/uL Baso # (Auto) 0.1 (0.0-0.2) X10*3/uL Abs Immat Gran (auto) 0.01 (0.00-0.03) X10*3/uL Absolute Neuts (auto) 2.4 (2.0-8.3) x10*3/uL Absolute Nucleated RBC 0.000 (0.0-0.012) X10*3/uL Nucleated RBC % (auto) 0.0 (0.0-0.2) /100WBC D-Dimer High Sensitivty 293 NG/ML Sodium (135-145) mmol/L Potassium (3.3-5.1) mmol/L Chloride (96-108) mmol/L Carbon Dioxide (22-29) mmol/L Anion Gap (12-20) BUN (9-16) mg/dL Creatinine (0.5-1.4) mg/dL Estim Creat Clear Calc Estimated GFR Random Glucose (60-115) mg/dL Calcium (8.4-10.2) mg/dL Magnesium (1.6-2.6) mg/dL Total Bilirubin (0.0-1.0) mg/dL AST (5-37) U/L ALT (0-40) U/L Alkaline Phosphatase (39-117) U/L Troponin I High Sens (<3.5-35.0) ng/L B-Natriuretic Peptide (<100) pg/mL Total Protein (6.5-8.0) g/dL Albumin (3.5-5.0) g/dL Urine Color Yellow Urine Appearance Clear Urine pH 7.0 (5.0-9.0) Ur Specific [place] 1.020 (1.005-1.025) Urine Protein Negative (Neg-Trace) mg/dL Urine Glucose (UA) Negative (Negative) mg/dL Urine Ketones Negative (Negative) mg/dL Urine Blood Negative (Negative) Urine Nitrite Negative (Negative) Ur Leukocyte Esterase Negative (Negative) COVID-19 ([facility]) (Negative) COVID-19 Clin Com 01/06/23 01/06/23 01/06/23 Range/Units 19:37 19:37 19:37 WBC (4.8-10.8) X10*3/uL RBC (4.60-5.80) X10*6/uL Hgb (14.0-18.0) g/dl Hct (42.0-52.0) % MCV (80.0-98.0) fL MCH (27.0-33.0) pg MCHC (31.0-36.0) g/dl RDW (11.0-16.0) % Plt Count (160-400) X10*3/uL MPV (9.4-12.4) fL Immature Gran % (Auto) (0.0-0.4) % Neut % (Auto) (45-73) % Lymph % (Auto) (20-40) % [place] % (Auto) (2-11) % Eos % (Auto) (0-4) % Baso % (Auto) (0-2) % Lymph # (Auto) (1.2-4.9) X10*3/uL [place] # (Auto) (0.1-1.2) X10*3/uL Eos # (Auto) (0.0-0.4) X10*3/uL Baso # (Auto) (0.0-0.2) X10*3/uL Abs Immat Gran (auto) (0.00-0.03) X10*3/uL Absolute Neuts (auto) (2.0-8.3) x10*3/uL Absolute Nucleated RBC (0.0-0.012) X10*3/uL Nucleated RBC % (auto) (0.0-0.2) /100WBC D-Dimer High Sensitivty NG/ML Sodium 144 (135-145) mmol/L Potassium 4.5 (3.3-5.1) mmol/L Chloride 107 (96-108) mmol/L Carbon Dioxide 31 H (22-29) mmol/L Anion Gap 11 L (12-20) BUN 12 (9-16) mg/dL Creatinine 0.95 (0.5-1.4) mg/dL Estim Creat Clear Calc 91.4 Estimated GFR > 60 Random Glucose 89 (60-115) mg/dL Calcium 9.4 (8.4-10.2) mg/dL Magnesium 2.1 (1.6-2.6) mg/dL Total Bilirubin 0.7 (0.0-1.0) mg/dL AST 42 H (5-37) U/L ALT 87 H (0-40) U/L Alkaline Phosphatase 68 (39-117) U/L Troponin I High Sens 4.2 (<3.5-35.0) ng/L B-Natriuretic Peptide < 10 (<100) pg/mL Total Protein 7.3 (6.5-8.0) g/dL Albumin 4.2 (3.5-5.0) g/dL Urine Color Urine Appearance Urine pH (5.0-9.0) Ur Specific [place] (1.005-1.025) Urine Protein (Neg-Trace) mg/dL Urine Glucose (UA) (Negative) mg/dL Urine Ketones (Negative) mg/dL Urine Blood (Negative) Urine Nitrite (Negative) Ur Leukocyte Esterase (Negative) COVID-19 ([facility]) (Negative) COVID-19 Clin Com 01/06/23 Range/Units 19:37 WBC (4.8-10.8) X10*3/uL RBC (4.60-5.80) X10*6/uL Hgb (14.0-18.0) g/dl Hct (42.0-52.0) % MCV (80.0-98.0) fL MCH (27.0-33.0) pg MCHC (31.0-36.0) g/dl RDW (11.0-16.0) % Plt Count (160-400) X10*3/uL MPV (9.4-12.4) fL Immature Gran % (Auto) (0.0-0.4) % Neut % (Auto) (45-73) % Lymph % (Auto) (20-40) % [place] % (Auto) (2-11) % Eos % (Auto) (0-4) % Baso % (Auto) (0-2) % Lymph # (Auto) (1.2-4.9) X10*3/uL [place] # (Auto) (0.1-1.2) X10*3/uL Eos # (Auto) (0.0-0.4) X10*3/uL Baso # (Auto) (0.0-0.2) X10*3/uL Abs Immat Gran (auto) (0.00-0.03) X10*3/uL Absolute Neuts (auto) (2.0-8.3) x10*3/uL Absolute Nucleated RBC (0.0-0.012) X10*3/uL Nucleated RBC % (auto) (0.0-0.2) /100WBC D-Dimer High Sensitivty NG/ML Sodium (135-145) mmol/L Potassium (3.3-5.1) mmol/L Chloride (96-108) mmol/L Carbon Dioxide (22-29) mmol/L Anion Gap (12-20) BUN (9-16) mg/dL Creatinine (0.5-1.4) mg/dL Estim Creat Clear Calc Estimated GFR Random Glucose (60-115) mg/dL Calcium (8.4-10.2) mg/dL Magnesium (1.6-2.6) mg/dL Total Bilirubin (0.0-1.0) mg/dL AST (5-37) U/L ALT (0-40) U/L Alkaline Phosphatase (39-117) U/L Troponin I High Sens (<3.5-35.0) ng/L B-Natriuretic Peptide (<100) pg/mL Total Protein (6.5-8.0) g/dL Albumin (3.5-5.0) g/dL Urine Color Urine Appearance Urine pH (5.0-9.0) Ur Specific [place] (1.005-1.025) Urine Protein (Neg-Trace) mg/dL Urine Glucose (UA) (Negative) mg/dL Urine Ketones (Negative) mg/dL Urine Blood (Negative) Urine Nitrite (Negative) Ur Leukocyte Esterase (Negative) COVID-19 ([facility]) Negative (Negative) COVID-19 Clin Com See Note <Darcie Harper MD - Last Filed: 01/06/23 21:43> Radiology Impression Discussion of test interpretation with radiology: I have reviewed the radiologist's reading. <Darcie Harper MD - Last Filed: 01/06/23 21:43> Radiologist Impression: FINDINGS: QUALITY OF STUDY/CONTRAST BOLUS: Satisfactory. PULMONARY ARTERIES: No pulmonary emboli.? THORACIC AORTA: No aneurysm. LUNG: No focal consolidation, nodules or masses. PLEURA: No pleural effusion or pneumothorax. MEDIASTINUM: Normal heart size.? No pericardial effusion.? No hilar or mediastinal lymphadenopathy.? No evidence of septal bowing or right heart strain. CORONARY ARTERY CALCIFICATION: None visualized on this study. CHEST WALL/AXILLA: No axillary or internal mammary lymphadenopathy. OSSEOUS STRUCTURES: No acute or suspicious osseous abnormality.? UPPER ABDOMEN: Unremarkable.? No reflux of contrast into the hepatic veins to suggest elevated right heart pressures. CT/CT angio chest PE protocol IMPRESSION: No evidence of PE. No evidence of aortic dissection. Or aneurysm. ? VTE: negative <Darcie Harper MD - Last Filed: 01/06/23 21:43> Discharge Plan Discharge Clinical Impression: Chest wall pain, chronic <JEFFREY Candelario - Last Filed: 01/06/23 19:04> Patient Disposition: Home, Self-Care <JEFFREY Candelario - Last Filed: 01/06/23 19:04> Instructions: Chest Wall Pain (ED) <JEFFREY Candelario - Last Filed: 01/06/23 19:04> Additional Instructions: Please follow-up with your primary care physician tomorrow. If you have any worsening or new symptoms, please return to the emergency room or call 911 <JEFFREY Candelario - Last Filed: 01/06/23 19:04> Prescriptions: No Action ibuprofen 600 mg tablet 600 mg PO Q6H PRN (Reason: pain) Qty: 30 0RF hydroxyzine HCl 50 mg tablet 50 mg PO BEDTIME Qty: 14 0RF fluticasone propionate [Flonase Allergy Relief] 50 mcg/actuation spray,suspension 1 spray intranasal BID Qty: 16 0RF Rx Instructions: administer into each nostril levocetirizine [24HR Allergy Relief] 5 mg tablet 5 mg PO DAILY Qty: 30 0RF gabapentin 100 mg capsule 100 mg PO BEDTIME Qty: 10 0RF bupropion HCl 150 mg tablet extended release 24 hr 150 mg PO QAM naloxone 4 mg/actuation spray,non-aerosol 0 spray intranasal hydrocortisone 2.5 % cream with perineal applicator topical BID buprenorphine-naloxone 8-2 mg film 10 mg sublingual DAILY budesonide-formoterol [Symbicort] 160-4.5 mcg/actuation HFA aerosol inhaler 2 puff inhalation BID 30 Days Qty: 10.2 11RF diclofenac sodium [Voltaren Arthritis Pain] 1 % gel 4 g topical QID 30 Days Qty: 100 0RF Rx Instructions: apply to single knee, ankle, foot; for foot includes sole/toes/top of foot sennosides [senna] 8.6 mg tablet 8.6 - 17.2 mg PO BEDTIME PRN (Reason: constipation) mirtazapine 30 mg tablet 30 mg PO BEDTIME duloxetine 60 mg capsule,delayed release(DR/EC) 60 mg PO DAILY pantoprazole 20 mg tablet,delayed release (DR/EC) 40 mg PO ONCE 30 Days Qty: 60 6RF <JEFFREY Candelario Last Filed: 01/06/23 19:04>
[2023-01-06 19:44] LABS: MANUAL DIFF FLAG NO
[2023-01-06 19:45] LABS: Basophils Absolute Auto 0.1 X10*3/uL (0.0-0.2); Basophils Percent Auto 1.5 % (0-2); Eosinophils Absolute Auto 0.1 X10*3/uL (0.0-0.4); Eosinophils Percent Auto 2.3 % (0-4); Hematocrit 39.8 % (42.0-52.0); Hemoglobin 13.7 g/dl (14.0-18.0); Imm Gran Abs Auto 0.01 X10*3/uL (0.00-0.03); Imm Gran Pct Auto 0.2 % (0.0-0.4); Lymphocytes Absolute Auto 2.1 X10*3/uL (1.2-4.9); Lymphocytes Percent Auto 40.3 % (20-40); Mean Corpuscular HGB Conc 34.4 g/dl (31.0-36.0); Mean Corpuscular Hemoglobin 28.9 pg (27.0-33.0); Mean Platelet Volume 9.3 fL (9.4-12.4); Monocytes Absolute Auto 0.5 X10*3/uL (0.1-1.2); Monocytes Percent Auto 9.4 % (2-11); Neutrophils Absolute Auto 2.4 x10*3/uL (2.0-8.3); Neutrophils Percent Auto 46.3 % (45-73); Platelet Count 269 X10*3/uL (160-400); Red Blood Count 4.74 X10*6/uL (4.60-5.80); Red Cell Distribution Width 11.9 % (11.0-16.0); White Blood Count 5.2 X10*3/uL (4.8-10.8)
[2023-01-06 19:46] LABS: Appearance Urine Clear; Color Urine Yellow; Glucose Urine UA Negative (Negative); Leukocyte Esterase Urine Negative (Negative); Nitrite Urine Negative (Negative); Urine Blood Negative (Negative); Urine Ketones Negative (Negative); Urine Protein Negative (Neg-Trace)
[2023-01-06 19:52] LABS: D Dimer High Sensitivity 293 NG/ML
[2023-01-06 20:00] VITALS: BP 110/62; PULSE 52; RESP 16; TEMP 36.1; O2SAT 99
[2023-01-06 20:06] LABS: COVID-19 Test Negative (Negative); IDNOW Serial# 08D9AD1C
[2023-01-06 20:07] LABS: Alanine Aminotransferase 87 U/L (0-40); Albumin Level 4.2 g/dL (3.5-5.0); Alkaline Phosphatase 68 U/L (39-117); Anion Gap 11 (12-20); Aspartate Amino Transferase 42 U/L (5-37); Bilirubin Total 0.7 mg/dL (0.0-1.0); Blood Urea Nitrogen 12 mg/dL (9-16); Calcium 9.4 mg/dL (8.4-10.2); Carbon Dioxide 31 mmol/L (22-29); Chloride 107 mmol/L (96-108); Creatinine Clr Calc Pharmacy 91.4; Estimated Glomerular Filt Rate > 60; Glucose Random 89 mg/dL (60-115); Magnesium 2.1 mg/dL (1.6-2.6); Potassium 4.5 mmol/L (3.3-5.1); Sodium 144 mmol/L (135-145); Total Protein 7.3 g/dL (6.5-8.0)
[2023-01-06 20:13] LABS: B Type Natriuretic Peptide < 10 pg/mL (<100)
[2023-01-06 20:14] LABS: Troponin-I High Sensitivity 4.2 ng/L (<3.5-35.0)
[2023-01-06] MEDS: iohexoL 350 MG/ML 100 ML INFUS..BTL IV (21:15)
[2023-01-06 22:01] VITALS: BP 115/65; PULSE 60; RESP 18; TEMP 36.2; O2SAT 97
== END 2023-01-06 22:05 | disposition home or self-care (01) ==
PROVIDERS: Physician Assistant; Emergency Provider Emergency Medicine; PCP Internal Medicine
DX: G89.29 Other chronic pain (principal); R07.89 Other chest pain; R06.02 Shortness of breath; Z20.822 Contact with and (suspected) exposure to COVID-19; Z87.891 Personal history of nicotine dependence; Z79.899 Other long term (current) drug therapy
CPT/HCPCS: 71045; 71275; 80053; 81003; 83735; 83880; 84484; 85025; 85379; 87635; 93005; 99284; Q9967

== ENCOUNTER 2023-01-14 09:38 | Outpatient (REF) | payer OTHER, SELFPAY ==
--- NOTE | ~2023-01-14 | US_ITS ---
EXAMINATION: US ABDOMEN COMPLETE CLINICAL INFORMATION: Elevation of levels of liver transaminase levels. COMPARISON: CT abdomen and pelvis without contrast dated 04/19/2022. TECHNIQUE: Real-time imaging of the abdominal viscera. FINDINGS: PANCREAS: Not well visualized due to bowel gas ABDOMINAL AORTA: The proximal, mid, and distal segments are normal in caliber. INFERIOR VENA CAVA: Visualized portions are normal. LIVER: Liver echotexture is increased suggestive of fatty infiltration. There is a focal hypoechoic area adjacent to the gallbladder and periportal region, characteristic location of focal fatty sparing. The liver is normal in size. The liver contour is normal. No focal hepatic lesion. There is no intrahepatic biliary duct dilatation seen. GALLBLADDER: Normal. The gallbladder is physiologically distended without evidence of stones, sludge, polyps, wall thickening or pericholecystic fluid. COMMON BILE DUCT: Normal in caliber measuring 0.59 cm in diameter. RIGHT KIDNEY: Normal. No hydronephrosis. No renal calculi or focal parenchymal lesions. The kidney measures 10.8 cm in maximum dimension. LEFT KIDNEY: Normal. No hydronephrosis. No renal calculi or focal parenchymal lesions. The kidney measures 11.3 cm in maximum dimension. SPLEEN: Normal. The spleen measures 11.3 cm in maximum dimension. FREE FLUID: None. US/US abdomen complete IMPRESSION: Fatty infiltration of the liver. Limited visualization of the pancreas.
== END 2023-01-14 09:39 | disposition home or self-care (01) ==
LOC: HO.HMGCX 09:38
PROVIDERS: PCP Internal Medicine; Visit Provider Physician Assistant
DX: R74.01 Elevation of levels of liver transaminase levels (principal)
CPT/HCPCS: 76700

== ENCOUNTER 2023-02-07 04:38 | Emergency (ER) | payer OTHER, SELFPAY ==
[2023-02-07 04:42] VITALS: BP 132/78; PULSE 58; RESP 16; TEMP 36.1; O2SAT 99; BMI 26.6
--- NOTE | 2023-02-07 04:43 | ECG_ITS ---
Test Reason : ARRRHYTHMIA Blood Pressure : / mmHG Vent. Rate : 048 BPM Atrial Rate : 048 BPM P-R Int : 144 ms QRS Dur : 094 ms QT Int : 458 ms P-R-T Axes : 054 042 013 degrees QTc Int : 409 ms Sinus bradycardia with sinus arrhythmia Otherwise normal ECG When compared with ECG of 06-JAN-2023 19:25, No significant change was found Referred By: Generic ED Physician Electronically Signed By:BRE RUTH MD
[2023-02-07 05:49] LABS: MANUAL DIFF FLAG NO
[2023-02-07 05:50] LABS: Basophils Absolute Auto 0.1 X10*3/uL (0.0-0.2); Basophils Percent Auto 1.1 % (0-2); Eosinophils Absolute Auto 0.2 X10*3/uL (0.0-0.4); Eosinophils Percent Auto 2.9 % (0-4); Hematocrit 37.7 % (42.0-52.0); Hemoglobin 12.9 g/dl (14.0-18.0); Imm Gran Abs Auto 0.01 X10*3/uL (0.00-0.03); Imm Gran Pct Auto 0.2 % (0.0-0.4); Lymphocytes Absolute Auto 2.2 X10*3/uL (1.2-4.9); Lymphocytes Percent Auto 40.3 % (20-40); Mean Corpuscular HGB Conc 34.2 g/dl (31.0-36.0); Mean Corpuscular Hemoglobin 29.1 pg (27.0-33.0); Mean Corpuscular Volume 84.9 fL (80.0-98.0); Mean Platelet Volume 9.4 fL (9.4-12.4); Monocytes Absolute Auto 0.4 X10*3/uL (0.1-1.2); Monocytes Percent Auto 7.1 % (2-11); Neutrophils Absolute Auto 2.6 x10*3/uL (2.0-8.3); Neutrophils Percent Auto 48.4 % (45-73); Platelet Count 204 X10*3/uL (160-400); Red Blood Count 4.44 X10*6/uL (4.60-5.80); Red Cell Distribution Width 11.9 % (11.0-16.0); White Blood Count 5.5 X10*3/uL (4.8-10.8)
[2023-02-07 06:06] LABS: Alanine Aminotransferase 61 U/L (0-40); Albumin Level 3.8 g/dL (3.5-5.0); Alkaline Phosphatase 62 U/L (39-117); Anion Gap 12 (12-20); Aspartate Amino Transferase 26 U/L (5-37); Bilirubin Total 0.5 mg/dL (0.0-1.0); Blood Urea Nitrogen 11 mg/dL (9-16); Calcium 8.8 mg/dL (8.4-10.2); Carbon Dioxide 27 mmol/L (22-29); Chloride 108 mmol/L (96-108); Creatinine Clr Calc Pharmacy 102.1; Estimated Glomerular Filt Rate > 60; Glucose Random 93 mg/dL (60-115); Sodium 143 mmol/L (135-145); Total Protein 6.7 g/dL (6.5-8.0)
[2023-02-07 06:13] LABS: Troponin-I High Sensitivity < 2.7 ng/L (<3.5-35.0)
--- NOTE | 2023-02-07 06:32 | ED.ARRPALP ---
HPI - Arrhythmia/Palpitations General Chief Complaint: Arrhythmia/Palpitations Stated Complaint: heart palp Time Seen by Provider: 02/07/23 06:20 Source: patient Mode of arrival: ambulatory Limitations: no limitations History of Present Illness HPI narrative: 42-year-old male presents with palpitations. Patient has a 2 year history of palpitations. There is no clear relieving or exacerbating features. He has been told assuming Farzaneh. Patient has near daily symptoms. Today symptoms are more persistent more severe. It was not associated with chest pain or shortness of breath. Denied any significant lightheadedness. Denied any nausea vomiting. Has no fevers or chills. No melanotic stools. Patient has had a workup as an outpatient. In February of 2022, patient had which showed baseline of normal sinus rule min average heart rate 73. There is rare ectopy. He did have 1 short episode of SVT. He had an echocardiogram at the same time. Which was considered a normal study. Related Data Home Medications Medication Instructions Recorded Confirmed bupropion HCl 150 mg 24 hr tablet, 150 mg PO QAM 06/04/20 01/04/23 extended release hydrocortisone 2.5 % topical cream topical BID 04/22/22 01/04/23 with perineal applicator naloxone 4 mg/actuation nasal spray 0 spray intranasal 04/22/22 01/04/23 buprenorphine 8 mg-naloxone 2 mg 10 mg sublingual DAILY 06/12/22 01/04/23 sublingual film sennosides 8.6 mg tablet (senna) 8.6 - 17.2 mg PO BEDTIME PRN 09/18/22 01/04/23 constipation duloxetine 60 mg capsule,delayed 60 mg PO DAILY 01/04/23 01/04/23 release mirtazapine 30 mg tablet 30 mg PO BEDTIME 01/04/23 01/04/23 Previous Rx's Medication Instructions Recorded hydroxyzine HCl 50 mg tablet 50 mg PO BEDTIME #14 tabs 04/06/22 fluticasone propionate 50 1 spray intranasal BID #16 grams 05/30/22 mcg/actuation nasal spray,suspension (Flonase Allergy Relief) levocetirizine 5 mg tablet (24HR 5 mg PO DAILY #30 tabs 05/30/22 Allergy Relief) budesonide-formoterol HFA 160 2 puff inhalation BID 30 days 06/12/22 mcg-4.5 mcg/actuation aerosol #10.2 grams inhaler (Symbicort) gabapentin 100 mg capsule 100 mg PO BEDTIME #10 caps 08/14/22 ibuprofen 600 mg tablet 600 mg PO Q6H PRN pain #30 tabs 11/03/22 diclofenac sodium 1 % topical gel 4 g topical QID 30 days #100 grams 12/17/22 (Voltaren Arthritis Pain) pantoprazole 20 mg tablet,delayed 40 mg PO ONCE 30 days #60 tabs 01/04/23 release Allergies Allergy/AdvReac Type Severity Reaction Status Date / Time No Known Drug Allergies Allergy Unknown none Verified 01/04/23 11:08 shellfish Allergy Unknown rash Uncoded 12/25/22 22:33 Review of Systems Review of Systems: CONSTITUTIONAL: Denies weight loss, fever and chills. HEENT: Denies changes in vision and hearing. RESPIRATORY: Denies SOB and cough. CV: Positive palpitations no CP. GI: Denies abdominal pain, nausea, vomiting and diarrhea. : Denies dysuria and urinary frequency. MSK: Denies myalgia and joint pain. SKIN: Denies rash and pruritus. NEUROLOGICAL: Denies headache and syncope. PSYCHIATRIC: Denies recent changes in mood. Denies anxiety and depression. 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 Mother No problems noted. Paternal Aunt Lung cancer Social History Social History Alcohol intake: never Patient Tobacco Use Status: Former Tobacco user Tobacco use type: Cigarette Years Smoked: 23 Years e-Cigarette/Vaping Use: Currently Using Advance Directives: No Advance Directives Information Provided: No Physical Exam Vital Signs: Vital Signs: Last Vital Signs Temp 97 F 02/07/23 04:42 Pulse 58 02/07/23 04:42 Resp 16 02/07/23 04:42 BP 132/78 02/07/23 04:42 Pulse Ox 99 02/07/23 04:42 O2 Del Method Room Air 02/07/23 04:42 BMI result Body Mass Index 26.6 CONSTITUTIONAL: Denies weight loss, fever and chills. HEENT: Denies changes in vision and hearing. RESPIRATORY: Denies SOB and cough. CV: Denies palpitations no CP. GI: Denies abdominal pain, nausea, vomiting and diarrhea. : Denies dysuria and urinary frequency. MSK: Denies myalgia and joint pain. SKIN: Denies rash and pruritus. NEUROLOGICAL: Denies headache and syncope. PSYCHIATRIC: Denies recent changes in mood. Denies anxiety and depression. All other ROS are negative unless in HPI Course Course Course Narrative: Patient presented with palpitations. The symptoms are near daily. Today, however, symptoms seem to be more severe affecting his ability to sleep. There is no chest pain or shortness of breath. Denied any lightheadedness. Examination revealed a normal cardiopulmonary exam. An EKG revealed normal sinus rhythm without significant cardiac dysrhythmia. Patient was not found to be anemic. Cardiac enzymes are negative. Previously elevated ALT is only mildly elevated today. 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 Differential diagnosis includes cardiac dysrhythmia, SVT, atrial fibrillation, atrial flutter, Pac, PVC, anemia, electrolyte abnormality. Will obtain routine laboratory testing. Will obtain EKG. Will treat symptomatically. Lab Data [facility] Lab Attestation statement: I reviewed the patient's lab results. 02/07/23 05:41 02/07/23 05:41 Labs: Lab Results 02/07/23 02/07/23 02/07/23 Range/Units 05:41 05:41 05:41 WBC 5.5 (4.8-10.8) X10*3/uL RBC 4.44 L (4.60-5.80) X10*6/uL Hgb 12.9 L (14.0-18.0) g/dl Hct 37.7 L (42.0-52.0) % MCV 84.9 (80.0-98.0) fL MCH 29.1 (27.0-33.0) pg MCHC 34.2 (31.0-36.0) g/dl RDW 11.9 (11.0-16.0) % Plt Count 204 (160-400) X10*3/uL MPV 9.4 (9.4-12.4) fL Immature Gran % (Auto) 0.2 (0.0-0.4) % Neut % (Auto) 48.4 (45-73) % Lymph % (Auto) 40.3 H (20-40) % Cannon % (Auto) 7.1 (2-11) % Eos % (Auto) 2.9 (0-4) % Baso % (Auto) 1.1 (0-2) % Lymph # (Auto) 2.2 (1.2-4.9) X10*3/uL Cannon # (Auto) 0.4 (0.1-1.2) X10*3/uL Eos # (Auto) 0.2 (0.0-0.4) X10*3/uL Baso # (Auto) 0.1 (0.0-0.2) X10*3/uL Abs Immat Gran (auto) 0.01 (0.00-0.03) X10*3/uL Absolute Neuts (auto) 2.6 (2.0-8.3) x10*3/uL Absolute Nucleated RBC 0.000 (0.0-0.012) X10*3/uL Nucleated RBC % (auto) 0.0 (0.0-0.2) /100WBC Sodium 143 (135-145) mmol/L Potassium 4.0 (3.3-5.1) mmol/L Chloride 108 (96-108) mmol/L Carbon Dioxide 27 (22-29) mmol/L Anion Gap 12 (12-20) BUN 11 (9-16) mg/dL Creatinine 0.85 (0.5-1.4) mg/dL Estim Creat Clear Calc 102.1 Estimated GFR > 60 Random Glucose 93 (60-115) mg/dL Calcium 8.8 D (8.4-10.2) mg/dL Total Bilirubin 0.5 (0.0-1.0) mg/dL AST 26 (5-37) U/L ALT 61 H (0-40) U/L Alkaline Phosphatase 62 (39-117) U/L Troponin I High Sens < 2.7 (<3.5-35.0) ng/L Total Protein 6.7 (6.5-8.0) g/dL Albumin 3.8 (3.5-5.0) g/dL Independent Interpretation I performed an independent interpretation of an: EKG (Sinus bradycardia heart rate 48, no acute ST elevations or depressions, normal intervals) External Record Review External record reviewed: Inpatient record Tests considered The following testing was considered but not selected: CT chest Prescription Management I considered prescription management with: Other (IV fluids) Discharge Plan Discharge Clinical Impression: Palpitations Clinical Impression: (Ruled Out): DELFINO (obstructive sleep apnea), Dysuria Patient Disposition: Home, Self-Care Instructions: Heart Palpitations (ED) Prescriptions: No Action ibuprofen 600 mg tablet 600 mg PO Q6H PRN (Reason: pain) Qty: 30 0RF hydroxyzine HCl 50 mg tablet 50 mg PO BEDTIME Qty: 14 0RF fluticasone propionate [Flonase Allergy Relief] 50 mcg/actuation spray,suspension 1 spray intranasal BID Qty: 16 0RF Rx Instructions: administer into each nostril levocetirizine [24HR Allergy Relief] 5 mg tablet 5 mg PO DAILY Qty: 30 0RF gabapentin 100 mg capsule 100 mg PO BEDTIME Qty: 10 0RF bupropion HCl 150 mg tablet extended release 24 hr 150 mg PO QAM naloxone 4 mg/actuation spray,non-aerosol 0 spray intranasal hydrocortisone 2.5 % cream with perineal applicator topical BID buprenorphine-naloxone 8-2 mg film 10 mg sublingual DAILY budesonide-formoterol [Symbicort] 160-4.5 mcg/actuation HFA aerosol inhaler 2 puff inhalation BID 30 Days Qty: 10.2 11RF diclofenac sodium [Voltaren Arthritis Pain] 1 % gel 4 g topical QID 30 Days Qty: 100 0RF Rx Instructions: apply to single knee, ankle, foot; for foot includes sole/toes/top of foot sennosides [senna] 8.6 mg tablet 8.6 - 17.2 mg PO BEDTIME PRN (Reason: constipation) mirtazapine 30 mg tablet 30 mg PO BEDTIME duloxetine 60 mg capsule,delayed release(DR/EC) 60 mg PO DAILY pantoprazole 20 mg tablet,delayed release (DR/EC) 40 mg PO ONCE 30 Days Qty: 60 6RF Referrals: Ike Amaya MD [Physician] - 5 days
== END 2023-02-07 07:13 | disposition home or self-care (01) ==
PROVIDERS: Emergency Provider Emergency Medicine; PCP Internal Medicine
DX: R00.2 Palpitations (principal); Z79.899 Other long term (current) drug therapy; Z87.891 Personal history of nicotine dependence
CPT/HCPCS: 36415; 80053; 84484; 85025; 93005; 99283; 99284

== ENCOUNTER → 2023-02-08 13:15 | Outpatient (BNVA) | payer OTHER, SELFPAY | PROVIDERS: PCP Internal Medicine; Visit Provider Physician Assistant | DX: D64.9 Anemia, unspecified (principal); R74.01 Elevation of levels of liver transaminase levels; K21.9 Gastro-esophageal reflux disease without esophagitis | CPT/HCPCS: 99212 ==

== ENCOUNTER 2023-02-16 13:32 | Outpatient (REF) | payer OTHER, SELFPAY ==
[2023-02-16 14:58] LABS: Iron 63 mcg/dL (45-160); Percent Iron Saturation 22 % (15-50); Total Iron Binding Capacity 291 mcg/dL (228-428); Unsaturated Iron Binding 228 ug/dL
[2023-02-16 15:15] LABS: Ferritin 147 ng/mL (20-250); Thyroid Stimulating Hormone 1.62 uIU/mL (0.32-4.0)
[2023-02-17 07:51] LABS: HBS Num1 0.09 mIU/mL (0-7.99); HBc Num1 0.04 S/CO (0.00-0.79); HBsAGNum1 0.26 S/CO (0.00-0.99); Hepatitis A Antibody IgM 0.18 Index (0-0.79); Hepatitis B Core Antibody Nonreactive (Nonreactive); Hepatitis B Surface Antigen Negative (Negative); ~Hepatitis A Antibody IgM Nonreactive (Nonreactive); ~Hepatitis B Surface Antibody NONREACTIVE (Nonreactive); ~Hepatitis C Antibody Nonreactive (Nonreactive)
[2023-02-17 17:28] LABS: Ceruloplasmin 23 mg/dL (18-36)
[2023-02-18 09:19] LABS: Transglutaminase IgA <1.0 U/mL
[2023-02-19 11:43] LABS: Mitochondrial Antibodies NEGATIVE (NEGATIVE)
[2023-02-20 10:34] LABS: Anti Nuclear Antibody Pattern Nuclear, Speckled; Anti Nuclear Antibody Screen POSITIVE (NEGATIVE)
[2023-02-20 12:48] LABS: Endomysial IgA Antibody Negative (Negative)
[2023-02-21 14:29] LABS: Smooth Muscle Antibody <20 U (<20)
== END 2023-02-16 13:33 | disposition home or self-care (01) ==
LOC: HO.LAB 13:32
PROVIDERS: Visit Provider Physician Assistant
DX: D64.9 Anemia, unspecified (principal); R74.01 Elevation of levels of liver transaminase levels; R19.8 Other specified symptoms and signs involving the digestive system and abdomen; R74.8 Abnormal levels of other serum enzymes; R19.7 Diarrhea, unspecified; R79.89 Other specified abnormal findings of blood chemistry
CPT/HCPCS: 36415; 82390; 82728; 83540; 84443; 86015; 86038; 86039; 86231; 86255; 86256; 86364; 86704; 86706; 86709; 86803; 87340

== ENCOUNTER 2023-03-08 04:38 | Emergency (ER) | payer OTHER, SELFPAY ==
[2023-03-08] VITALS (7 sets, daily range): BP systolic 115–135; BP diastolic 65–83; PULSE 48–60; RESP 12–20; TEMP 36.3–36.6; O2SAT 96–100; BMI 26.6
--- NOTE | 2023-03-08 05:03 | PC.NURSE ---
Assumed care of pt. Pt ambulated to room under own power. pt with multiple complaints, primarily L neck/L arm pain radiating to L anterior chest, worse with movement. Pt sts has been seen multiple times for same concerns and is pending appt with vice president of development. Pt NSR on monitor, normotensive IV established and labs sent.
--- NOTE | 2023-03-08 07:12 | ED.CHESTPAIN ---
HPI - Chest Pain General Chief Complaint: Chest Pain Stated Complaint: chest pain, arm pain Time Seen by Provider: 03/08/23 07:03 Source: patient, RN notes reviewed and old records reviewed Mode of arrival: ambulatory History of Present Illness HPI narrative: 42-year-old male with past medical history DELFINO, anxiety, presenting to the ED complaining of left-sided neck pain radiating to left chest and LUE x 2 weeks. Reports pain is constant/daily, with associated numbness/tingling, and worse with head position changes. Denies recent injury/trauma or fall, headache, vision change/loss, weakness, SOB, travel. Has been taking Motrin without relief Related Data Home Medications Medication Instructions Recorded Confirmed bupropion HCl 150 mg 24 hr tablet, 150 mg PO QAM 06/04/20 02/08/23 extended release hydrocortisone 2.5 % topical cream topical BID 04/22/22 02/08/23 with perineal applicator naloxone 4 mg/actuation nasal spray 0 spray intranasal 04/22/22 02/08/23 buprenorphine 8 mg-naloxone 2 mg 10 mg sublingual DAILY 06/12/22 02/08/23 sublingual film sennosides 8.6 mg tablet (senna) 8.6 - 17.2 mg PO BEDTIME PRN 09/18/22 02/08/23 constipation duloxetine 60 mg capsule,delayed 60 mg PO DAILY 01/04/23 02/08/23 release mirtazapine 30 mg tablet 30 mg PO BEDTIME 01/04/23 02/08/23 Previous Rx's Medication Instructions Recorded hydroxyzine HCl 50 mg tablet 50 mg PO BEDTIME #14 tabs 04/06/22 fluticasone propionate 50 1 spray intranasal BID #16 grams 05/30/22 mcg/actuation nasal spray,suspension (Flonase Allergy Relief) levocetirizine 5 mg tablet (24HR 5 mg PO DAILY #30 tabs 05/30/22 Allergy Relief) budesonide-formoterol HFA 160 2 puff inhalation BID 30 days 06/12/22 mcg-4.5 mcg/actuation aerosol #10.2 grams inhaler (Symbicort) gabapentin 100 mg capsule 100 mg PO BEDTIME #10 caps 08/14/22 ibuprofen 600 mg tablet 600 mg PO Q6H PRN pain #30 tabs 02/28/23 diclofenac sodium 1 % topical gel 4 g topical QID 30 days #100 grams 12/17/22 (Voltaren Arthritis Pain) pantoprazole 20 mg tablet,delayed 40 mg PO ONCE 30 days #60 tabs 01/04/23 release acetaminophen 500 mg tablet 500 mg PO Q6H PRN fever or pain 03/08/23 (Tylenol Extra Strength) #14 tabs cyclobenzaprine 5 mg tablet 5 mg PO Q8H PRN pain (scale score 03/08/23 7-10) 5 days #14 tabs lidocaine 5 % topical patch 1 patch topical DAILY PRN pain #30 03/08/23 (Lidoderm) ea naproxen 500 mg tablet 500 mg PO BID PRN pain 10 days #20 03/08/23 tabs Allergies Allergy/AdvReac Type Severity Reaction Status Date / Time No Known Drug Allergies Allergy Unknown none Verified 02/08/23 13:18 shellfish Allergy Unknown rash Uncoded 12/25/22 22:33 Review of Systems Review of Systems: Constitutional: No Fever, No Chills, No Night Sweats, No Fatigue, No Malaise ENT/Mouth: No Ear Pain, No Nasal Congestion, No sore throat, No Rhinorrhea, No Swallowing Difficulty Eyes: No Eye Pain, No Swelling, No Redness, No Vision Changes Cardiovascular: + Chest Pain, No SOB, No Edema, No Palpitations Respiratory: No Cough, No Sputum, NNo Dyspnea Gastrointestinal: No Nausea, No Vomiting, No Diarrhea, No Constipation, No Abdominal pain Genitourinary: No irregular bleeding, No Dysuria, No Flank Pain Musculoskeletal: + joint pain, No Myalgias, No Joint Swelling Skin: No Skin Lesions, No rash Neuro: No Weakness, + Numbness, + Paresthesias, No Loss of Consciousness, No Dizziness, No Headache Yes all other systems are reviewed and are negative Constitutional: Constitutional: Reports as per HPI Neurologic: Denies Abnormal speech present [facility] Past Medical History Attestation statement: The following information was validated with the patient. 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 Mother No problems noted. Paternal Aunt Lung cancer Social History Social History Alcohol intake: never Patient Tobacco Use Status: Former Tobacco user Tobacco use type: Cigarette Years Smoked: 23 Years Smoked in Last 30 Days: Yes e-Cigarette/Vaping Use: Currently Using Use of substances other than those prescribed or required for medical reasons: No Advance Directives: No Advance Directives Information Provided: No Physical Exam Vital Signs: Vital Signs: Last Vital Signs Temp 97.5 F 03/08/23 08:25 Pulse 48 L 03/08/23 08:25 Resp 12 03/08/23 08:25 BP 129/83 03/08/23 08:25 Pulse Ox 98 03/08/23 08:25 O2 Del Method Room Air 03/08/23 08:25 BMI result Body Mass Index 26.6 Const: General: cooperative, healthy appearing and no acute distress Orientation/consciousness: patient oriented x3 Limitations: no limitations HEENT: Head: Yes normal to inspection and Yes atraumatic Ears: hearing grossly normal bilaterally, external ears normal and mastoids normal General nose exam: Normal external nose present Face and sinus: Yes normal facial exam Mouth: Normal oral and palatal mucosa present Throat: Yes posterior oropharynx normal, Yes tonsils normal and Yes uvula midline Eyes: General: appearance normal, both eyes and all related structures Pupils: Equal, round and reactive pupils present EOM: EOMs intact bilaterally Neck: Other: No midline cervical spinous tenderness/step-off or deformity. Left-sided paraspinal and left-sided trapezius muscle tenderness reproducing subjective complaint. Pain elicited with leftward head movement Neck: Yes normal visual inspection, Yes no meningeal signs, Yes supple, No anterior neck swelling and No torticollis Chest: Other: Substernal/left upper chest wall tenderness to palpation. No crepitus/ecchymosis/erythema or flail chest Chest palpation & inspection: normal inspection of the chest, no crepitus and tenderness Resp: Effort & Inspection: normal respiratory effort and no respiratory distress Auscultation: clear to auscultation bilaterally Cardio: Rate: regular rate Heart sounds: S1 normal heart sound present and S2 normal heart sound present GI: Inspection: Yes normal to inspection Palpation (GI): Soft to palpation, nontender, no guarding and not rigid Back/Spine/Pelvis: Other: No midline cervical/thoracic/lumbar spinous tenderness/step-off or deformity Skin: Rashes: no rashes Wounds: no wounds Neuro: General: patient oriented x3, gait normal, tone normal, moves all extremities, no meningeal signs, no focal motor deficits and CN's II-XI intact bilaterally Cranial nerves: Yes CN's II-XII intact bilaterally, Yes Equal, round and reactive pupils present and Yes Bilaterally intact EOM present Cognition (Neuro): normal cognition Speech: No Abnormal speech present Gait exam (Neuro): Normal gait present Motor exam (neuro): 5/5 motor strength present throughout Extrem: Other: Left shoulder without noted deformity, mild tenderness to palpation to AC joint. ROM intact with some discomfort. NV intact distally General: Yes normal to inspection Course Course Course Narrative: -728--no leukocytosis. H&H stable. Labs otherwise reassuring. Troponin negative -chest x-ray unremarkable -915--XR shoulder LT min 2V IMPRESSION: Mild degenerative changes of the left shoulder CT cervical spine wo IV con IMPRESSION: 1.? Straightening of the normal cervical lordosis may be secondary to positioning and/or muscle spasm. 2.? Mild C5-6 degenerative disc disease. 3.? Mild emphysema. -patient sleeping on re-evaluation. Results discussed with patient including worrisome signs and symptoms and strict return precautions, and when to return to the emergency department. They verbalized understanding and feel safe for discharge at this time. Medications Administered Discontinued Medications Generic Name Dose Route Start Last Admin Trade Name Minor PRN Reason Stop Dose Admin Diazepam 5 mg 03/08/23 07:18 03/08/23 08:09 Diazepam 2 Mg Tablet PO 03/08/23 07:19 5 mg ONCE ONE Administration Ketorolac Tromethamine 30 mg 03/08/23 07:18 03/08/23 08:10 Ketorolac Tromethamine 30 Mg/Ml Vial IM 03/08/23 07:19 30 mg ONCE ONE Administration Medical Decision Making Medical Decision Making [facility] Narrative: 42-year-old male with past medical history DELFINO, anxiety, presenting to the ED complaining of left-sided neck pain radiating to left chest and LUE x 2 weeks. On exam vital signs stable, NAD, nontoxic appearing with physical exam noted above with left-sided cervical paraspinal/trapezius muscle and left shoulder AC tenderness. Chest wall tenderness reproducible. No focal neuro deficits. Concern for atypical ACS vs cervical radiculopathy vs shoulder tendinitis/tendinopathy vs arthritis. Lower suspicion for cervical dissection, CVA/TIA, fracture/dislocation or PE Plan: EKG, labs, CXR, shoulder x-ray, neck CT, p.o. Valium Please refer to course for remaining clinical decision making, interpretation of labs/imaging results, and discussions with consultants and/or family members. Differential Diagnosis Differential Diagnoses: The differential diagnosis associated with the presentation includes As above Admission/Observation Consideration of admission/observation: Escalation of care including admission/observation considered Lab Data MDM Lab Attestation statement: I reviewed the patient's lab results. 03/08/23 04:57 03/08/23 04:57 Labs: Lab Results 03/08/23 03/08/23 03/08/23 Range/Units 04:57 04:57 04:57 WBC 5.0 (4.8-10.8) X10*3/uL RBC 4.53 L (4.60-5.80) X10*6/uL Hgb 13.3 L (14.0-18.0) g/dl Hct 38.2 L (42.0-52.0) % MCV 84.3 (80.0-98.0) fL MCH 29.4 (27.0-33.0) pg MCHC 34.8 (31.0-36.0) g/dl RDW 12.1 (11.0-16.0) % Plt Count 209 (160-400) X10*3/uL MPV 9.6 (9.4-12.4) fL Immature Gran % (Auto) 0.2 (0.0-0.4) % Neut % (Auto) 41.6 L (45-73) % Lymph % (Auto) 45.9 H (20-40) % Grainger % (Auto) 7.3 (2-11) % Eos % (Auto) 3.6 (0-4) % Baso % (Auto) 1.4 (0-2) % Lymph # (Auto) 2.3 (1.2-4.9) X10*3/uL Grainger # (Auto) 0.4 (0.1-1.2) X10*3/uL Eos # (Auto) 0.2 (0.0-0.4) X10*3/uL Baso # (Auto) 0.1 (0.0-0.2) X10*3/uL Abs Immat Gran (auto) 0.01 (0.00-0.03) X10*3/uL Absolute Neuts (auto) 2.1 (2.0-8.3) x10*3/uL Absolute Nucleated RBC 0.000 (0.0-0.012) X10*3/uL Nucleated RBC % (auto) 0.0 (0.0-0.2) /100WBC Sodium 142 (135-145) mmol/L Potassium 4.1 (3.3-5.1) mmol/L Chloride 106 (96-108) mmol/L Carbon Dioxide 26 (22-29) mmol/L Anion Gap 14 (12-20) BUN 16 (9-16) mg/dL Creatinine 1.06 (0.5-1.4) mg/dL Estim Creat Clear Calc 81.9 Estimated GFR > 60 Random Glucose 101 (60-115) mg/dL Calcium 9.1 (8.4-10.2) mg/dL Troponin I High Sens < 2.7 (<3.5-35.0) ng/L Independent Interpretation I performed an independent interpretation of an: EKG Interpretation: My interpretation: EKG sinus bradycardia at a rate of 51. LA interval 146. QTC 388. No significant change when compared to prior. No STEMI Radiology Impression Discussion of test interpretation with radiology: I have reviewed the radiologist's reading. External Record Review External record reviewed: Inpatient record, Office record, Outpatient record, Prior outpatient labs, Prior outpatient radiology, Primary care record and Outside ED record Tests considered The following testing was considered but not selected: As above Prescription Management I considered prescription management with: Pain Medication Chronic Conditions Patient?s care impacted by: Other (Anxiety) Discharge Plan Discharge Clinical Impression: Cervical radiculopathy Patient Disposition: Home, Self-Care Instructions: Cervical Radiculopathy (ED) Additional Instructions: A CT scan showed some neck muscle spasming and symptoms degenerative changes. Your x-rays and blood work was otherwise reassuring PLEASE FOLLOW-UP WITH YOUR DOCTOR Your pain is likely musculoskeletal Flexeril is a muscle relaxer, take at night as it makes you drowsy, do not drive, drink alcohol, or operate machinery while taking it Naproxen as an anti-inflammatory / pain medication, take with food Lidoderm patches are numbing patches, apply to painful area In addition take Tylenol at home If symptoms persist or worsen, pain becomes unbearable, you developed urinary retention or incontinence, or weakness return to the ED Prescriptions: New acetaminophen [Tylenol Extra Strength] 500 mg tablet 500 mg PO Q6H PRN (Reason: fever or pain) Qty: 14 0RF lidocaine [Lidoderm] 5 % adhesive patch,medicated 1 patch topical DAILY MDD remove after 12 hours PRN (Reason: pain) Qty: 30 0RF Rx Instructions: leave on most painful area for up to 12 hrs naproxen 500 mg tablet 500 mg PO BID PRN (Reason: pain) 10 Days Qty: 20 0RF cyclobenzaprine 5 mg tablet 5 mg PO Q8H PRN (Reason: pain (scale score 7-10)) 5 Days Qty: 14 0RF No Action ibuprofen 600 mg tablet 600 mg PO Q6H PRN (Reason: pain) Qty: 30 0RF hydroxyzine HCl 50 mg tablet 50 mg PO BEDTIME Qty: 14 0RF fluticasone propionate [Flonase Allergy Relief] 50 mcg/actuation spray,suspension 1 spray intranasal BID Qty: 16 0RF Rx Instructions: administer into each nostril levocetirizine [24HR Allergy Relief] 5 mg tablet 5 mg PO DAILY Qty: 30 0RF gabapentin 100 mg capsule 100 mg PO BEDTIME Qty: 10 0RF bupropion HCl 150 mg tablet extended release 24 hr 150 mg PO QAM naloxone 4 mg/actuation spray,non-aerosol 0 spray intranasal hydrocortisone 2.5 % cream with perineal applicator topical BID buprenorphine-naloxone 8-2 mg film 10 mg sublingual DAILY budesonide-formoterol [Symbicort] 160-4.5 mcg/actuation HFA aerosol inhaler 2 puff inhalation BID 30 Days Qty: 10.2 11RF diclofenac sodium [Voltaren Arthritis Pain] 1 % gel 4 g topical QID 30 Days Qty: 100 0RF Rx Instructions: apply to single knee, ankle, foot; for foot includes sole/toes/top of foot sennosides [senna] 8.6 mg tablet 8.6 - 17.2 mg PO BEDTIME PRN (Reason: constipation) mirtazapine 30 mg tablet 30 mg PO BEDTIME duloxetine 60 mg capsule,delayed release(DR/EC) 60 mg PO DAILY pantoprazole 20 mg tablet,delayed release (DR/EC) 40 mg PO ONCE 30 Days Qty: 60 6RF Referrals: Physician,Unknown J [Primary Care Provider] -
== END 2023-03-08 09:37 | disposition home or self-care (01) ==
PROVIDERS: Emergency Provider Emergency Medicine Emergency Medical Services
DX: M54.12 Radiculopathy, cervical region (principal); R20.2 Paresthesia of skin; F41.9 Anxiety disorder, unspecified; Z87.891 Personal history of nicotine dependence; Z79.899 Other long term (current) drug therapy
CPT/HCPCS: 36415; 71046; 72125; 73030; 80048; 84484; 85025; 93005; 96372; 99284; 99285; J1885

== ENCOUNTER → 2023-03-10 12:40 | Outpatient (BNVA) | payer OTHER, SELFPAY | PROVIDERS: PCP Internal Medicine; Visit Provider Physician Assistant | DX: K21.9 Gastro-esophageal reflux disease without esophagitis (principal); F41.9 Anxiety disorder, unspecified; R76.8 Other specified abnormal immunological findings in serum; D64.9 Anemia, unspecified | CPT/HCPCS: 99212 ==

== ENCOUNTER 2023-03-20 04:56 | Emergency (ER) | payer OTHER, SELFPAY ==
[2023-03-20 04:59] VITALS: BP 136/86; PULSE 56; RESP 18; TEMP 36.6; O2SAT 97; BMI 27.1
--- NOTE | 2023-03-20 05:05 | ECG_ITS ---
Test Reason : cp Blood Pressure : / mmHG Vent. Rate : 055 BPM Atrial Rate : 055 BPM P-R Int : 126 ms QRS Dur : 088 ms QT Int : 426 ms P-R-T Axes : 047 029 005 degrees QTc Int : 407 ms Sinus bradycardia Otherwise normal ECG When compared with ECG of 08-MAR-2023 04:46, No significant change was found Referred By: Generic ED Physician Electronically Signed By:Aries Johnson
[2023-03-20 05:15] LABS: MANUAL DIFF FLAG NO
[2023-03-20 05:16] LABS: Basophils Absolute Auto 0.1 X10*3/uL (0.0-0.2); Basophils Percent Auto 1.5 % (0-2); Eosinophils Absolute Auto 0.2 X10*3/uL (0.0-0.4); Eosinophils Percent Auto 3.5 % (0-4); Hematocrit 39.9 % (42.0-52.0); Hemoglobin 13.7 g/dl (14.0-18.0); Imm Gran Abs Auto 0.01 X10*3/uL (0.00-0.03); Imm Gran Pct Auto 0.2 % (0.0-0.4); Lymphocytes Absolute Auto 2.3 X10*3/uL (1.2-4.9); Lymphocytes Percent Auto 42.5 % (20-40); Mean Corpuscular HGB Conc 34.3 g/dl (31.0-36.0); Mean Corpuscular Volume 84.4 fL (80.0-98.0); Mean Platelet Volume 9.5 fL (9.4-12.4); Monocytes Absolute Auto 0.4 X10*3/uL (0.1-1.2); Monocytes Percent Auto 7.2 % (2-11); Neutrophils Absolute Auto 2.4 x10*3/uL (2.0-8.3); Neutrophils Percent Auto 45.1 % (45-73); Platelet Count 220 X10*3/uL (160-400); Red Blood Count 4.73 X10*6/uL (4.60-5.80); Red Cell Distribution Width 11.7 % (11.0-16.0); White Blood Count 5.4 X10*3/uL (4.8-10.8)
[2023-03-20 05:36] LABS: Alanine Aminotransferase 73 U/L (0-40); Albumin Level 4.1 g/dL (3.5-5.0); Alkaline Phosphatase 67 U/L (39-117); Anion Gap 14 (12-20); Aspartate Amino Transferase 34 U/L (5-37); Bilirubin Total 0.5 mg/dL (0.0-1.0); Blood Urea Nitrogen 12 mg/dL (9-16); Calcium 9.7 mg/dL (8.4-10.2); Carbon Dioxide 25 mmol/L (22-29); Chloride 107 mmol/L (96-108); Creatinine Clr Calc Pharmacy 109.9; Estimated Glomerular Filt Rate > 60; Glucose Random 100 mg/dL (60-115); Potassium 4.2 mmol/L (3.3-5.1); Sodium 142 mmol/L (135-145); Total Protein 7.2 g/dL (6.5-8.0)
[2023-03-20 05:41] LABS: Troponin-I High Sensitivity < 2.7 ng/L (<3.5-35.0)
== END 2023-03-20 07:02 | disposition left against medical advice (07) ==
PROVIDERS: Emergency Provider Emergency Medicine; PCP Internal Medicine
DX: R07.9 Chest pain, unspecified (principal); R20.2 Paresthesia of skin; F41.9 Anxiety disorder, unspecified; Z87.891 Personal history of nicotine dependence
CPT/HCPCS: 36415; 80053; 84484; 85025; 93005; 99281; 99283

== ENCOUNTER → 2023-03-20 05:05 | Outpatient (BNV) | payer OTHER, SELFPAY | PROVIDERS: Emergency Provider Emergency Medicine; PCP Internal Medicine; Visit Provider Internal Medicine Cardiovascular Disease | DX: R00.1 Bradycardia, unspecified (principal) | CPT/HCPCS: 93010 ==

== ENCOUNTER 2023-03-21 09:11 | Emergency (ER) | payer OTHER, SELFPAY ==
--- NOTE | ~2023-03-21 | XR_ITS ---
EXAMINATION: XR CHEST CLINICAL INFORMATION: Chest pain. COMPARISON: 03/08/2023 chest radiographs. TECHNIQUE: 2 views of the chest were obtained. FINDINGS: No significant abnormality is noted involving the heart, lungs, mediastinum, bony thorax or soft tissues. XR/XR chest 2V IMPRESSION: No acute cardiopulmonary process.
--- NOTE | 2023-03-21 09:14 | ECG_ITS ---
Test Reason : CHEST PAIN Blood Pressure : / mmHG Vent. Rate : 049 BPM Atrial Rate : 049 BPM P-R Int : 154 ms QRS Dur : 090 ms QT Int : 442 ms P-R-T Axes : 054 049 029 degrees QTc Int : 399 ms Sinus bradycardia Otherwise normal ECG When compared with ECG of 08-MAR-2023 04:46, No significant change was found Referred By: Generic ED Physician Electronically Signed By:Aries Johnsno
[2023-03-21 09:20] VITALS: BP 143/95; PULSE 57; RESP 16; TEMP 36; O2SAT 99; BMI 27.1
[2023-03-21 09:32] LABS: Basophils Absolute Auto 0.1 X10*3/uL (0.0-0.2); Basophils Percent Auto 1.4 % (0-2); Eosinophils Absolute Auto 0.2 X10*3/uL (0.0-0.4); Eosinophils Percent Auto 3.8 % (0-4); Imm Gran Abs Auto 0.01 X10*3/uL (0.00-0.03); Imm Gran Pct Auto 0.2 % (0.0-0.4); Lymphocytes Absolute Auto 2.4 X10*3/uL (1.2-4.9); Lymphocytes Percent Auto 47.8 % (20-40); MANUAL DIFF FLAG NO; Mean Corpuscular HGB Conc 34.1 g/dl (31.0-36.0); Mean Corpuscular Hemoglobin 29.2 pg (27.0-33.0); Mean Corpuscular Volume 85.4 fL (80.0-98.0); Mean Platelet Volume 9.3 fL (9.4-12.4); Monocytes Absolute Auto 0.4 X10*3/uL (0.1-1.2); Monocytes Percent Auto 7.3 % (2-11); Neutrophils Percent Auto 39.5 % (45-73); Platelet Count 223 X10*3/uL (160-400); Red Cell Distribution Width 11.9 % (11.0-16.0); White Blood Count 5.1 X10*3/uL (4.8-10.8)
--- NOTE | 2023-03-21 09:40 | PC.NURSE ---
Patient alert and oriented. Arrived from home complaining of sob ,chest pain and left arm pain. has long history of chest pain but today the pain in his left arm seems worse. had covid about 3 years ago and still has sob. hx of anxiety and depression, states medications for anxiety daily and EMT`s in past have come to his house when having similar episodes and told him it was anxiety. vss. No lower extremity edema. Denies headache. rates chest/left arm pain at 8/10
[2023-03-21 09:44] VITALS: BP 130/80; PULSE 53; RESP 18; TEMP 36.9; O2SAT 98
--- NOTE | 2023-03-21 09:44 | ED.CHESTPAIN ---
HPI - Chest Pain General Chief Complaint: Chest Pain Stated Complaint: chest pain/ left arm pain Time Seen by Provider: 03/21/23 09:26 Source: patient Mode of arrival: ambulatory Limitations: no limitations History of Present Illness HPI narrative: 42 yo male with a history of chronic opiate use now on suboxone, anxiety here with complaints of chest pain/shortness of breath x 2 yrs which he contributes to having post COVID. Patient reports he has been seen by PCP, pulmonology, cardiology. He has had a outpatient echo, holter monitor which were normal. He reports continued symptoms which he describes as constant and not exertional. No associated cough, fever, leg swelling/leg pain, vomiting or diaphoresis. For the last two weeks patient has had pain in the left side of his neck which radiates down the left arm. No associated paresthesias, exertional symptoms. Of note, he was seen here 03/08 for similar complaints (had CT cervical spine which showed mild degenerative disc disease) and was diagnosed with ddx cervical radiculopathy. Patient reports he has not followed up with PCP and has continued symptoms. Related Data Home Medications Medication Instructions Recorded Confirmed bupropion HCl 150 mg 24 hr tablet, 150 mg PO QAM 06/04/20 02/08/23 extended release hydrocortisone 2.5 % topical cream topical BID 04/22/22 02/08/23 with perineal applicator naloxone 4 mg/actuation nasal spray 0 spray intranasal 04/22/22 02/08/23 buprenorphine 8 mg-naloxone 2 mg 10 mg sublingual DAILY 06/12/22 02/08/23 sublingual film sennosides 8.6 mg tablet (senna) 8.6 - 17.2 mg PO BEDTIME PRN 09/18/22 02/08/23 constipation duloxetine 60 mg capsule,delayed 60 mg PO DAILY 01/04/23 02/08/23 release docusate sodium 100 mg capsule 0 mg PO 03/10/23 loratadine 10 mg tablet 10 mg PO DAILY 03/10/23 mirtazapine 15 mg tablet 15 mg PO BEDTIME 03/10/23 Previous Rx's Medication Instructions Recorded hydroxyzine HCl 50 mg tablet 50 mg PO BEDTIME #14 tabs 04/06/22 fluticasone propionate 50 1 spray intranasal BID #16 grams 05/30/22 mcg/actuation nasal spray,suspension (Flonase Allergy Relief) levocetirizine 5 mg tablet (24HR 5 mg PO DAILY #30 tabs 05/30/22 Allergy Relief) budesonide-formoterol HFA 160 2 puff inhalation BID 30 days 06/12/22 mcg-4.5 mcg/actuation aerosol #10.2 grams inhaler (Symbicort) gabapentin 100 mg capsule 100 mg PO BEDTIME #10 caps 08/14/22 ibuprofen 600 mg tablet 600 mg PO Q6H PRN pain #30 tabs 11/03/22 diclofenac sodium 1 % topical gel 4 g topical QID 30 days #100 grams 12/17/22 (Voltaren Arthritis Pain) pantoprazole 20 mg tablet,delayed 40 mg PO ONCE 30 days #60 tabs 01/04/23 release acetaminophen 500 mg tablet 500 mg PO Q6H PRN fever or pain 03/08/23 (Tylenol Extra Strength) #14 tabs cyclobenzaprine 5 mg tablet 5 mg PO Q8H PRN pain (scale score 03/08/23 7-10) 5 days #14 tabs lidocaine 5 % topical patch 1 patch topical DAILY PRN pain #30 03/08/23 (Lidoderm) ea naproxen 500 mg tablet 500 mg PO BID PRN pain 10 days #20 03/08/23 tabs methylcellulose (laxative) 500 mg 500 mg PO BID #60 tabs 03/10/23 tablet (Citrucel) cyclobenzaprine 10 mg tablet 10 mg PO TID PRN muscle spasm #15 03/21/23 tabs Allergies Allergy/AdvReac Type Severity Reaction Status Date / Time shellfish Allergy Unknown rash Uncoded 03/10/23 12:45 Review of Systems Review of Systems: Yes all other systems are reviewed and are negative Constitutional: Constitutional: Reports no additional constitutional complaints, Denies body ache(s), Denies chills, Denies fever(s), Denies headache(s) and Denies weakness Eyes: Eyes: Reports no additional eye complaints and Denies change in vision ENT: Reports system reviewed and no additional complaints, except as documented, Denies dizziness, Denies headache(s), Denies nasal congestion, Denies nasal discharge and Reports neck pain Cardiovascular: Cardiovascular: Reports no additional cardiovascular complaints, Reports chest pain, Denies leg edema and Denies dyspnea Respiratory: Respiratory: Reports no additional respiratory complaints, Denies cough and Denies dyspnea Gastrointestinal: Gastrointestinal: Reports no additional gastrointestinal complaints, Denies abdominal pain, Denies diarrhea, Denies nausea and Denies vomiting Genitourinary: Genitourinary: Denies urinary incontinence Musculoskeletal: Musculoskeletal: Reports no additional musculoskeletal complaints, Denies back pain, Denies arthralgias, Denies joint swelling, Reports neck pain, Denies numbness, Reports radiating pain into limb and Denies tingling Integumentary/Breasts: Skin/Breast: Reports system reviewed and no additional complaints, except as docu and Denies rash Neurologic: Reports system reviewed and no additional complaints, except as documented, Denies Abnormal speech present, Denies dizziness, Denies headache(s), Denies numbness, Denies tingling and Denies weakness PMFSH Past Medical History Attestation statement: The following information was validated with the patient. 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 Mother No problems noted. Paternal Aunt Lung cancer Social History Social History Alcohol intake: former Patient Tobacco Use Status: Former Tobacco user Tobacco use type: Cigarette Years Smoked: 23 Years Smoked in Last 30 Days: Yes e-Cigarette/Vaping Use: Currently Using Use of substances other than those prescribed or required for medical reasons: No Advance Directives: No Advance Directives Information Provided: Yes Current occupational status: disabled Physical Exam Vital Signs: Vital Signs: Last Vital Signs Temp 98.4 F 03/21/23 09:44 Pulse 53 03/21/23 09:44 Resp 18 03/21/23 09:44 BP 130/80 03/21/23 09:44 Pulse Ox 98 03/21/23 09:44 O2 Del Method Room Air 03/21/23 09:44 BMI result Body Mass Index 27.1 Const: General: cooperative, healthy appearing, comfortable and no acute distress Orientation/consciousness: patient oriented x3 Limitations: no limitations HEENT: Head: Yes normal to inspection Ears: hearing grossly normal bilaterally General nose exam: Normal external nose present Face and sinus: Yes normal facial exam Mouth: Normal oral and palatal mucosa present Throat: Yes posterior oropharynx normal Eyes: General: appearance normal, both eyes and all related structures Pupils: Equal, round and reactive pupils present Neck: Other: TTP to left trap and soft tissue left neck. Pain worsened with palpation and movement of the left and movement of the left arm Neck: Yes normal visual inspection, Yes full ROM, Yes no lymphadenopathy and Yes no meningeal signs Chest: Other: left upper chest tender to palp Chest palpation & inspection: normal inspection of the chest Resp: Effort & Inspection: normal respiratory effort Auscultation: clear to auscultation bilaterally Cardio: Rate: regular rate Rhythm: regular rhythm Peripheral pulses: Peripheral pulses 2+ throughout GI: Inspection: Yes normal to inspection Palpation (GI): Soft to palpation and nontender Auscultation: normal bowel sounds Back/Spine/Pelvis: Thoracic/Lumbar Spine: thoracic and lumbar spine normal to inspection Skin: General skin exam: no rashes or lesions noted Neuro: General: patient oriented x3, moves all extremities, no meningeal signs, no focal motor deficits and normal sensation to monofilament Cranial nerves: Yes CN's II-XII intact bilaterally, Yes Equal, round and reactive pupils present, Yes Bilaterally intact EOM present, Yes Nystagmus not present, Yes Normal facial strength present and Yes Midline tongue present Cognition (Neuro): normal cognition Speech: No Abnormal speech present Gait exam (Neuro): Normal gait present Motor exam (neuro): 5/5 motor strength present throughout Sensory Exam: Normal double simultaneous stimulation for sensation Deep tendon reflexes (DTR's): Right triceps reflex intensity grade: 2+, Left triceps reflex intensity grade: 2+, Rt Biceps (C5, C6): 2+, Left biceps reflex intensity grade: 2+, Right brachioradialis reflex intensity grade: 2+ and Left brachioradialis reflex intensity grade: 2+ Extrem: General: Yes normal to inspection, Yes no pedal edema and Yes no calf tenderness Course Course Course Narrative: Labs are unremarkable. EKG shows no ischemic changes. CXR is normal. Low concern for ACS. Likely cervical radiculopathy. Recommend patient f/u outpatient with PCP for further evaluation. Medications Administered Discontinued Medications Generic Name Dose Route Start Last Admin Trade Name Minor PRN Reason Stop Dose Admin Ketorolac Tromethamine 30 mg 03/21/23 09:43 03/21/23 09:58 Ketorolac Tromethamine 30 Mg/Ml Vial IM 03/21/23 09:44 30 mg ONCE ONE Administration Medical Decision Making Medical Decision Making [facility] Narrative: 42 yo male here with complaints of chronic chest pain/shortness of breath for years with negative outpatient castañeda (echo/holter) here with continued pain/shortness of breath as well as pain in the left side of neck/left arm x 2 weeks. On exam patient well appearing. VSS Has left upper chest tenderness to palp as well as tenderness over the left trapezius and left soft tissue of the neck with FROM. Pain is reproducible and worsened with movement. LS CTA NO focal neuro findings Cw with MS pain, cervical radiculopathy Will check EKG, labs, CXR, provide analgesia Differential Diagnosis Differential Diagnoses: The differential diagnosis associated with the presentation includes MS pain, cervical radiculopathy Less likely PE (PERC 0), ACS, aortic dissection Admission/Observation Consideration of admission/observation: Escalation of care including admission/observation considered Low concern for ACS, HEART score 0, CP not exertional, non ischemic EKG and flat troponin so no need for admission Lab Data [facility] Lab Attestation statement: I reviewed the patient's lab results. 03/21/23 09:27 03/21/23 09:27 Labs: Lab Results 03/21/23 03/21/23 03/21/23 Range/Units 09:27 09:27 09:27 WBC 5.1 (4.8-10.8) X10*3/uL RBC 4.80 (4.60-5.80) X10*6/uL Hgb 14.0 (14.0-18.0) g/dl Hct 41.0 L (42.0-52.0) % MCV 85.4 (80.0-98.0) fL MCH 29.2 (27.0-33.0) pg MCHC 34.1 (31.0-36.0) g/dl RDW 11.9 (11.0-16.0) % Plt Count 223 (160-400) X10*3/uL MPV 9.3 L (9.4-12.4) fL Immature Gran % (Auto) 0.2 (0.0-0.4) % Neut % (Auto) 39.5 L (45-73) % Lymph % (Auto) 47.8 H (20-40) % Mcintosh % (Auto) 7.3 (2-11) % Eos % (Auto) 3.8 (0-4) % Baso % (Auto) 1.4 (0-2) % Lymph # (Auto) 2.4 (1.2-4.9) X10*3/uL Mcintosh # (Auto) 0.4 (0.1-1.2) X10*3/uL Eos # (Auto) 0.2 (0.0-0.4) X10*3/uL Baso # (Auto) 0.1 (0.0-0.2) X10*3/uL Abs Immat Gran (auto) 0.01 (0.00-0.03) X10*3/uL Absolute Neuts (auto) 2.0 (2.0-8.3) x10*3/uL Absolute Nucleated RBC 0.000 (0.0-0.012) X10*3/uL Nucleated RBC % (auto) 0.0 (0.0-0.2) /100WBC Sodium 143 (135-145) mmol/L Potassium 4.4 (3.3-5.1) mmol/L Chloride 106 (96-108) mmol/L Carbon Dioxide 27 (22-29) mmol/L Anion Gap 14 (12-20) BUN 12 (9-16) mg/dL Creatinine 0.99 (0.5-1.4) mg/dL Estim Creat Clear Calc 87.7 Estimated GFR > 60 Random Glucose 102 (60-115) mg/dL Calcium 9.4 (8.4-10.2) mg/dL Total Bilirubin 0.5 (0.0-1.0) mg/dL AST 31 (5-37) U/L ALT 73 H (0-40) U/L Alkaline Phosphatase 68 (39-117) U/L Troponin I High Sens 3.3 (<3.5-35.0) ng/L Total Protein 7.5 (6.5-8.0) g/dL Albumin 4.2 (3.5-5.0) g/dL Independent Interpretation I performed an independent interpretation of an: EKG and Plain X-Ray Interpretation: I independently reviewed the CXR and agree with rad repoprt I independently reviewed the EKG which shows SB with rate 49, normal pr, normal qrs, normal qt Radiology Impression Discussion of test interpretation with radiology: I have reviewed the radiologist's reading. Radiologist Impression: [address] [address] XRay Report Signed Patient: Cody Shepard MR#: [id number] : 1980 Acct:[id number] Age/Sex: 42 / M ADM Date: 03/21/23 Loc: .ED Attending Dr: Ordering Physician: Ainsley Holder NP Date of Service: 03/21/23 Procedure(s): XR chest 2V Accession Number(s): [id number] cc: Ainsley Holder NP~ EXAMINATION: XR CHEST CLINICAL INFORMATION: Chest pain. COMPARISON: 03/08/2023 chest radiographs. TECHNIQUE: 2 views of the chest were obtained. FINDINGS: No significant abnormality is noted involving the heart, lungs, mediastinum, bony thorax or soft tissues. XR/XR chest 2V IMPRESSION: No acute cardiopulmonary process. Discharge Plan Discharge Clinical Impression: Cervical radiculopathy, Chest pain Patient Disposition: Home, Self-Care Instructions: Chest Pain (ED), Cervical Radiculopathy (ED) Additional Instructions: Continue motrin Heat or ice follow-up with PCP Prescriptions: New cyclobenzaprine 10 mg tablet 10 mg PO TID PRN (Reason: muscle spasm) Qty: 15 0RF No Action ibuprofen 600 mg tablet 600 mg PO Q6H PRN (Reason: pain) Qty: 30 0RF hydroxyzine HCl 50 mg tablet 50 mg PO BEDTIME Qty: 14 0RF fluticasone propionate [Flonase Allergy Relief] 50 mcg/actuation spray,suspension 1 spray intranasal BID Qty: 16 0RF Rx Instructions: administer into each nostril levocetirizine [24HR Allergy Relief] 5 mg tablet 5 mg PO DAILY Qty: 30 0RF gabapentin 100 mg capsule 100 mg PO BEDTIME Qty: 10 0RF acetaminophen [Tylenol Extra Strength] 500 mg tablet 500 mg PO Q6H PRN (Reason: fever or pain) Qty: 14 0RF lidocaine [Lidoderm] 5 % adhesive patch,medicated 1 patch topical DAILY MDD remove after 12 hours PRN (Reason: pain) Qty: 30 0RF Rx Instructions: leave on most painful area for up to 12 hrs naproxen 500 mg tablet 500 mg PO BID PRN (Reason: pain) 10 Days Qty: 20 0RF cyclobenzaprine 5 mg tablet 5 mg PO Q8H PRN (Reason: pain (scale score 7-10)) 5 Days Qty: 14 0RF bupropion HCl 150 mg tablet extended release 24 hr 150 mg PO QAM naloxone 4 mg/actuation spray,non-aerosol 0 spray intranasal hydrocortisone 2.5 % cream with perineal applicator topical BID buprenorphine-naloxone 8-2 mg film 10 mg sublingual DAILY budesonide-formoterol [Symbicort] 160-4.5 mcg/actuation HFA aerosol inhaler 2 puff inhalation BID 30 Days Qty: 10.2 11RF diclofenac sodium [Voltaren Arthritis Pain] 1 % gel 4 g topical QID 30 Days Qty: 100 0RF Rx Instructions: apply to single knee, ankle, foot; for foot includes sole/toes/top of foot sennosides [senna] 8.6 mg tablet 8.6 - 17.2 mg PO BEDTIME PRN (Reason: constipation) duloxetine 60 mg capsule,delayed release(DR/EC) 60 mg PO DAILY pantoprazole 20 mg tablet,delayed release (DR/EC) 40 mg PO ONCE 30 Days Qty: 60 6RF docusate sodium 100 mg capsule 0 mg PO mirtazapine 15 mg tablet 15 mg PO BEDTIME loratadine 10 mg tablet 10 mg PO DAILY Citrucel 500 mg tablet 500 mg PO BID Qty: 60 5RF Referrals: Rik Flaherty MD [Primary Care Provider] - 5 days Interventions: ED Discharge Assessment Last Done: 03/21/23 10:25 Discharge Date/Time: 03/21/23 10:26
[2023-03-21 09:46] LABS: Alanine Aminotransferase 73 U/L (0-40); Albumin Level 4.2 g/dL (3.5-5.0); Alkaline Phosphatase 68 U/L (39-117); Anion Gap 14 (12-20); Aspartate Amino Transferase 31 U/L (5-37); Bilirubin Total 0.5 mg/dL (0.0-1.0); Blood Urea Nitrogen 12 mg/dL (9-16); Calcium 9.4 mg/dL (8.4-10.2); Carbon Dioxide 27 mmol/L (22-29); Chloride 106 mmol/L (96-108); Creatinine Clr Calc Pharmacy 87.7; Estimated Glomerular Filt Rate > 60; Glucose Random 102 mg/dL (60-115); Potassium 4.4 mmol/L (3.3-5.1); Sodium 143 mmol/L (135-145); Total Protein 7.5 g/dL (6.5-8.0)
[2023-03-21 09:53] LABS: Troponin-I High Sensitivity 3.3 ng/L (<3.5-35.0)
[2023-03-21] MEDS: Ketorolac Tromethamine 30 MG/ML VIAL IM (09:58)
--- NOTE | 2023-03-21 10:25 | PC.NURSE ---
Reviewed discharge instructions with patient who verbalized understanding
== END 2023-03-21 10:26 | disposition home or self-care (01) ==
PROVIDERS: Emergency Provider Student in an Organized Health Care Education/Training Program; PCP Internal Medicine
DX: M54.12 Radiculopathy, cervical region (principal); R07.89 Other chest pain; R06.02 Shortness of breath; M54.2 Cervicalgia; R51.9 Headache, unspecified; Z79.899 Other long term (current) drug therapy
CPT/HCPCS: 36415; 71046; 80053; 84484; 85025; 93005; 96372; 99284; 99285; J1885

== ENCOUNTER → 2023-03-21 09:14 | Outpatient (BNV) | payer OTHER, SELFPAY | PROVIDERS: Emergency Provider Student in an Organized Health Care Education/Training Program; PCP Internal Medicine; Visit Provider Internal Medicine Cardiovascular Disease | DX: R00.1 Bradycardia, unspecified (principal) | CPT/HCPCS: 93010 ==

== ENCOUNTER 2023-04-01 08:49 | Outpatient (AMB) | payer OTHER, SELFPAY ==
[2023-04-01 09:13] VITALS: BP 130/79; PULSE 66; TEMP 36.4; O2SAT 98; BMI 26.9
--- NOTE | 2023-04-01 09:13 | MHC.OFFVIS ---
Intake Vital Signs 04/01/23 09:13 Height 5 ft 6 in Weight 166 lb 14.239 oz BMI 26.9 BP 130/79 Blood Pressure Location Rt brachial Position Sitting Pulse 66 Pulse Source Pulse Oximeter Temp 97.5 F Temp Source Tympanic Pulse Oximetry (%) 98 Oxygen Delivery Method Room Air Intake Visit Reasons: +[employer] Chair Required: No Accompanied by: Self / Same As Patient Allergies shellfish Allergy (Unknown, Uncoded 04/01/23 09:17) rash Medication List - Last Reconciled 04/01/23 by Rosanne Donahue MD acetaminophen (Tylenol Extra Strength) 500 mg PO Q6H PRN budesonide-formoterol 160-4.5 mcg/actuation (Symbicort) 2 puffs inhalation BID 30 days buprenorphine-naloxone 8-2 mg 10 mg sublingual DAILY bupropion HCl 150 mg PO QAM cyclobenzaprine 10 mg PO TID PRN diclofenac sodium 1% (Voltaren Arthritis Pain) 4 grams topical QID 30 days docusate sodium 0 mg PO duloxetine 60 mg PO DAILY fluticasone propionate 50 mcg/actuation (Flonase Allergy Relief) 1 spray intranasal BID gabapentin 100 mg PO BEDTIME hydroxyzine HCl 50 mg PO BEDTIME ibuprofen 600 mg PO Q6H PRN mirtazapine 15 mg PO BEDTIME naloxone 4 mg/actuation 0 sprays intranasal naproxen 500 mg PO BID PRN 10 days pantoprazole 40 mg (2 x 20 mg) PO ONCE 30 days HPI HPI Comments History of Present Illness Details This is a 42-year-old male who presents for evaluation positive VICKIE and diffuse pain. States that he went to the emergency room recently for neck pain. Imaging showed mild degenerative disc changes and findings consistent with neck spasm. He states that he has left shoulder pain and tingling and numbness along his left upper extremity. He also occasionally gets numbness of his thighs. He also has pain in his right lateral chest wall. He is unaware of any family history of autoimmune rheumatic disease. Denies any oral ulcers, denies skin rashes, denied any blood in the urine. He has difficulty falling and staying asleep. Has constant fatigue. He is this is able to do to [place]. 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 Mother No problems noted. Paternal Aunt Lung cancer Social History Alcohol intake: former Patient Tobacco Use Status: Former Tobacco user Tobacco use type: Cigarette Years Smoked: 23 Years e-Cigarette/Vaping Use: Currently Using Current occupational status: disabled Review of Systems Const Reports headache(s) and Reports weakness Eyes Reports itchy eyes ENT Reports headache(s) and Reports neck pain Card Reports dyspnea Resp Reports dyspnea GI Reports heartburn and Reports nausea Musc Reports neck pain, Reports numbness and Reports tingling Neuro Reports headache(s), Reports numbness, Reports tingling and Reports weakness Psych Reports abnormal sleep pattern and Reports anxiety Aller/Immun Reports itchy eyes Physical Exam Vital Signs: Last Vital Signs Temp 97.5 F 04/01/23 09:13 Pulse 66 04/01/23 09:13 BP 130/79 04/01/23 09:13 Pulse Ox 98 04/01/23 09:13 Oxygen Delivery Method Room Air 04/01/23 09:13 BMI result Body Mass Index 26.9 Const General: cooperative, healthy appearing and comfortable Nutritional Appearance: average body habitus Orientation/consciousness: patient oriented x3 Limitations: no limitations HEENT Head: Yes normocephalic and Yes atraumatic Mouth: moist mucous membranes Resp Effort & Inspection: normal respiratory effort and able to speak in complete sentences Auscultation: clear to auscultation bilaterally Cardio Rate: regular rate Rhythm: regular rhythm GI Palpation (GI): Soft to palpation and nontender Skin General skin exam: no rashes or lesions noted Neuro General: patient oriented x3 Extrem Other: No active synovitis Pain with full neck extension Normal nailfold capillaroscopy Assessment & Plan Assessment & Plan (1) Positive VICKIE (antinuclear antibody): Code(s): R76.8 - Other specified abnormal immunological findings in serum Plan: This is a 42-year-old male who presents for evaluation of positive VICKIE 1-80 speckled. I do not see any signs of autoimmune rheumatic disease upon my evaluation. Discussed that around 15-20% of the population have a positive VICKIE and that does not necessarily mean having an autoimmune rheumatic disease. No further testing for autoimmune rheumatic disease is required at this point. (2) Fibromyalgia, primary: Code(s): M79.7 - Fibromyalgia Plan: Discussed management of fibromyalgia with patient. Is a noninflammatory, non-autoimmune central afferent processing disorder leading to a diffuse pain syndrome. Patient already has a psychiatrist and a psychotherapist. Advised patient to Try to follow sleep hygiene practices. Discuss CBT for sleep with psychotherapist. Patient sometimes snores, advised patient to Discuss with PCP referral for a sleep study. Patient would benefit from increased physical activity, either through formal physical therapy or by joining a gym. Advised patient that she should start activity slowly and increase as tolerated. Consider low-impact exercises such as walking, swimming, aqua therapy stretching, yoga. Patient is already on multiple meds that can help fibromyalgia including gabapentin and duloxetine. Given degenerative changes seen on CT neck as well as tingling and numbness in his left upper extremity, will order an EMG to evaluate for cervical radiculopathy Plan I spent 47 minutes reviewing patient's chart, evaluating patient, ordering diagnostic workup, counseling patient and documenting in the chart Orders: Orders NE electromyogram (EMG) Today M54.12 - Radiculopathy, cervical region Coding Level of Care Code New Pt Level 4 (17674) Diagnoses Positive VICKIE (antinuclear antibody) R76.8 Fibromyalgia, primary M79.7
== END 2023-04-01 10:03 | disposition home or self-care (01) ==
PROVIDERS: PCP Internal Medicine; Visit Provider Student in an Organized Health Care Education/Training Program
DX: R76.8 Other specified abnormal immunological findings in serum (principal); M79.7 Fibromyalgia
CPT/HCPCS: 99204

== ENCOUNTER → 2023-04-01 08:49 | Outpatient (BNVA) | payer OTHER, SELFPAY | PROVIDERS: Visit Provider Student in an Organized Health Care Education/Training Program | DX: R76.8 Other specified abnormal immunological findings in serum (principal); M79.7 Fibromyalgia | CPT/HCPCS: 99202 ==

== ENCOUNTER 2023-04-07 12:46 | Outpatient (AMB) | payer OTHER, SELFPAY ==
[2023-04-07 12:58] VITALS: BP 110/80; PULSE 73; BMI 26.3
--- NOTE | 2023-04-07 12:58 | MHC.OFFVIS ---
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 Required: No Accompanied by: Self / Same As Patient Allergies shellfish Allergy (Unknown, Uncoded 04/07/23 13:00) rash Medication List - Last Reconciled 04/07/23 by Ike Amaya MD acetaminophen (Tylenol Extra Strength) 500 mg PO Q6H PRN budesonide-formoterol 160-4.5 mcg/actuation (Symbicort) 2 puffs inhalation BID 30 days buprenorphine-naloxone 8-2 mg 10 mg sublingual DAILY bupropion HCl 150 mg PO QAM cyclobenzaprine 10 mg PO TID PRN diclofenac sodium 1% (Voltaren Arthritis Pain) 4 grams topical QID 30 days docusate sodium 0 mg PO duloxetine 60 mg PO DAILY fluticasone propionate 50 mcg/actuation (Flonase Allergy Relief) 1 spray intranasal BID gabapentin 100 mg PO BEDTIME hydroxyzine HCl 50 mg PO BEDTIME ibuprofen 600 mg PO Q6H PRN mirtazapine 15 mg PO BEDTIME naloxone 4 mg/actuation 0 sprays intranasal naproxen 500 mg PO BID PRN 10 days pantoprazole 40 mg (2 x 20 mg) PO ONCE 30 days HPI HPI Comments History of Present Illness Details Cody returns for follow-up. In the past, was seen regarding shortness of breath and palpitations but an echocardiogram as well as Holter were unremarkable. He is here because he continues to feel the same. He states that even when he is sitting and doing nothing he feels short of breath. Sometimes with activity he feels that way. No specific provoking factors. Otherwise, no history of any coronary disease myocardial infarction or cardiomyopathy. He has had COVID twice in the past. Apparently symptoms started after that. 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 Mother No problems noted. Paternal Aunt Lung cancer Social History Alcohol intake: former Patient Tobacco Use Status: Former Tobacco user Tobacco use type: Cigarette Years Smoked: 23 Years e-Cigarette/Vaping Use: Currently Using Current occupational status: disabled Review of Systems Const Denies weakness ENT Denies dizziness Card Denies chest pain, Denies chest pain with activity, Denies syncope, Denies rapid heart rate, Denies pedal edema, Denies edema, Denies leg edema, Denies lightheadedness, Denies palpitations, Denies dyspnea, Denies dyspnea on exertion and Denies orthopnea Resp Denies cough, Denies dyspnea and Denies dyspnea on exertion GI Denies hematochezia and Denies change in stool character Musc Denies abnormal gait, Denies muscle cramps, Denies muscle weakness, Denies numbness, Denies radiating pain into limb and Denies tingling Neuro Denies abnormal gait, Denies dizziness, Denies syncope, Denies numbness, Denies tingling and Denies weakness Endo Denies palpitations Physical Exam Vital Signs: Last Vital Signs Pulse 73 04/07/23 12:58 BP 110/80 04/07/23 12:58 BMI result Body Mass Index 26.3 Const General: comfortable and no acute distress Orientation/consciousness: patient oriented x3 HEENT Other: Unremarkable Head: Yes normal to inspection Neck Neck: Yes normal visual inspection Chest Chest palpation & inspection: normal inspection of the chest Resp Auscultation: clear to auscultation bilaterally Cardio Palpation: normal PMI Heart sounds: S1 normal heart sound present, S2 normal heart sound present, no gallops, no murmurs and no rubs GI Palpation (GI): Soft to palpation Back/Spine/Pelvis Other: unremarkable Skin General skin exam: no rashes or lesions noted Neuro General: patient oriented x3 Extrem General: Yes normal to inspection Psych Mental Status: mental status grossly normal Assessment & Plan Assessment & Plan (1) Heart palpitations: Code(s): R00.2 - Palpitations (2) SOB (shortness of breath): Code(s): R06.02 - Shortness of breath Plan It appears that he has had several ER visits for the same reasons. Recent EKG with sinus bradycardia but otherwise unremarkable. Other EKGs do not show anything of major significance either. Numerous sets of high sensitivity troponins are within normal range. Echocardiogram with normal LVEF, normal diastolic filling and otherwise unremarkable. Holter for 3 days showed one 8 beat episode of SVT but otherwise normal. Overall, no clear etiology identified based on the above. We will do an exercise stress echocardiogram. Will do a longer duration of Holter for 14 days. Follow-up after that. Orders: Orders CA echo stress exercise Today R06.02 - Shortness of breath ECG 14 day holter monitor Today R00.2 - Palpitations Medications: Changed From cyclobenzaprine 10 mg PO TID PRN 15 tabs 0RF muscle spasm To cyclobenzaprine 10 mg PO TID PRN Coding Level of Care Code Est Pt Level 3 (59276) Diagnoses Heart palpitations R00.2 SOB (shortness of breath) R06.02
== END 2023-04-07 13:15 | disposition home or self-care (01) ==
PROVIDERS: PCP Internal Medicine; Referring Provider Internal Medicine; Visit Provider Internal Medicine
DX: R00.2 Palpitations (principal); R06.02 Shortness of breath
CPT/HCPCS: 99213

== ENCOUNTER → 2023-04-07 12:46 | Outpatient (BNVA) | payer OTHER, SELFPAY | PROVIDERS: PCP Internal Medicine; Referring Provider Internal Medicine; Visit Provider Internal Medicine | DX: R00.2 Palpitations (principal); R06.02 Shortness of breath | CPT/HCPCS: 99212 ==

== ENCOUNTER → 2023-04-27 14:41 | Outpatient (REF) | payer OTHER, SELFPAY ==
--- NOTE | 2023-04-27 14:44 | HM_ITS ---
conclusion: 1. Patient was monitored for total period of 4 days and 10 hours 2. Baseline was normal sinus rhythm with average heart rate of 71 beats per minute 3. No significant pauses noted 4. No significant arrhythmias noted with very rare ectopy burden 5. Patient marked the counter 1 time without associated symptoms reported, correlating with sinus rhythm MTDD
== END ==
LOC: HO.CARD 14:41
PROVIDERS: PCP Internal Medicine; Visit Provider Internal Medicine
DX: R00.2 Palpitations (principal)
CPT/HCPCS: 93246

== ENCOUNTER → 2023-04-27 14:44 | Outpatient (BNV) | payer OTHER, SELFPAY | PROVIDERS: PCP Internal Medicine; Visit Provider Internal Medicine Cardiovascular Disease | DX: R00.2 Palpitations (principal) | CPT/HCPCS: 93248 ==

== ENCOUNTER 2023-05-09 07:23 | Emergency (ER) | payer OTHER, SELFPAY ==
--- NOTE | 2023-05-09 07:25 | ECG_ITS ---
Test Reason : CHEST PAIN Blood Pressure : / mmHG Vent. Rate : 060 BPM Atrial Rate : 060 BPM P-R Int : 156 ms QRS Dur : 088 ms QT Int : 412 ms P-R-T Axes : 045 039 026 degrees QTc Int : 412 ms Normal sinus rhythm Normal ECG When compared with ECG of 21-MAR-2023 09:12, Heart rate has increased Referred By: Jaison Reyes Electronically Signed By:CHU DEVLIN
--- NOTE | 2023-05-09 07:28 | ED.CHESTPAIN ---
HPI - Chest Pain General Chief Complaint: General Medical Stated Complaint: chest pain Time Seen by Provider: 05/09/23 07:25 Source: patient Mode of arrival: ambulatory Limitations: no limitations History of Present Illness HPI narrative: patient with 2 years of chest pain and shortness of breath with acid reflux. Patient is concerned that he is having a heart attack. Patient has recently seen Dr. Amaya he is scheduled for a stress test. Mulitple visitis negative for cardiac ischemia MD complaint: chest pain Onset (ago): week(s) Timing of current episode: episodic Prior episodes: Yes Related Data Home Medications Medication Instructions Recorded Confirmed bupropion HCl 150 mg 24 hr tablet, 150 mg PO QAM 06/04/20 04/07/23 extended release naloxone 4 mg/actuation nasal spray 0 spray intranasal 04/22/22 04/07/23 buprenorphine 8 mg-naloxone 2 mg 10 mg sublingual DAILY 06/12/22 04/07/23 sublingual film duloxetine 60 mg capsule,delayed 60 mg PO DAILY 01/04/23 04/07/23 release docusate sodium 100 mg capsule 0 mg PO 03/10/23 04/07/23 mirtazapine 15 mg tablet 15 mg PO BEDTIME 03/10/23 04/07/23 cyclobenzaprine 10 mg tablet 10 mg PO TID PRN muscle spasm 04/07/23 04/07/23 Previous Rx's Medication Instructions Recorded hydroxyzine HCl 50 mg tablet 50 mg PO BEDTIME #14 tabs 04/06/22 fluticasone propionate 50 1 spray intranasal BID #16 grams 05/30/22 mcg/actuation nasal spray,suspension (Flonase Allergy Relief) budesonide-formoterol HFA 160 2 puff inhalation BID 30 days 06/12/22 mcg-4.5 mcg/actuation aerosol #10.2 grams inhaler (Symbicort) gabapentin 100 mg capsule 100 mg PO BEDTIME #10 caps 08/14/22 ibuprofen 600 mg tablet 600 mg PO Q6H PRN pain #30 tabs 11/03/22 diclofenac sodium 1 % topical gel 4 g topical QID 30 days #100 grams 12/17/22 (Voltaren Arthritis Pain) pantoprazole 20 mg tablet,delayed 40 mg PO ONCE 30 days #60 tabs 01/04/23 release acetaminophen 500 mg tablet 500 mg PO Q6H PRN fever or pain 03/08/23 (Tylenol Extra Strength) #14 tabs naproxen 500 mg tablet 500 mg PO BID PRN pain 10 days #20 03/08/23 tabs pantoprazole 40 mg tablet,delayed 40 mg PO DAILY #20 tabs 05/09/23 release (Protonix) Allergies Allergy/AdvReac Type Severity Reaction Status Date / Time shellfish Allergy Unknown rash Uncoded 04/07/23 13:00 Review of Systems Review of Systems: Yes all other systems are reviewed and are negative Neurologic: Denies Sensory deficit (Neuro) COUNT INCLUDES THE [facility] Past Medical History Medical History Anxiety COVID-19 Deviated nasal bone [id number] syndrome Rhinosinusitis Scrotal pain Surgical History History of cornea transplant Family History Family History Father No problems noted. Mother No problems noted. Paternal Aunt Lung cancer Social History Social History Alcohol intake: never Patient Tobacco Use Status: Former Tobacco user Tobacco use type: Cigarette Years Smoked: 23 Years Smoked in Last 30 Days: No e-Cigarette/Vaping Use: Currently Using Use of substances other than those prescribed or required for medical reasons: No Advance Directives: No Advance Directives Information Provided: No Current occupational status: disabled Physical Exam Vital Signs: Vital Signs: Last Vital Signs Temp 98.0 F 05/09/23 08:54 Pulse 56 05/09/23 08:54 Resp 12 05/09/23 08:54 BP 122/76 05/09/23 08:54 Pulse Ox 96 05/09/23 08:54 O2 Del Method Room Air 05/09/23 08:54 BMI result Body Mass Index 27.4 Const: Other: very anxious General: healthy appearing Nutritional Appearance: average body habitus Orientation/consciousness: oriented to person and patient oriented x3 Limitations: no limitations HEENT: Head: Yes normal to inspection Ears: external ears normal General nose exam: Normal external nose present Mouth: Normal oral and palatal mucosa present and oropharynx normal Throat: Yes posterior oropharynx normal Eyes: General: appearance normal, both eyes and all related structures Neck: Other: supple Neck: Yes normal visual inspection Chest: Chest palpation & inspection: normal inspection of the chest Resp: Auscultation: clear to auscultation bilaterally Cardio: Jugular venous distension: no JVD Rate: regular rate Rhythm: regular rhythm Heart sounds: S1 normal heart sound present and S2 normal heart sound present GI: Inspection: Yes normal to inspection Palpation (GI): Soft to palpation, nontender and No hepatosplenomegaly present Auscultation: normal bowel sounds : General: Yes no CVA tenderness Back/Spine/Pelvis: Back: no CVA tenderness Skin: General skin exam: no rashes or lesions noted Neuro: General: oriented to person and patient oriented x3 Cranial nerves: Yes CN's II-XII intact bilaterally Motor exam (neuro): 5/5 motor strength present throughout Sensory Exam: No Sensory deficit (Neuro) Extrem: General: Yes normal to inspection Psych: Appearance: grossly normal Course Reevaluation(s) Reevaluation #1: Patients EKG and troponin are negative, Impression is gastritis vs anxiety will dc on protonix Time: 09:08 Medications Administered Discontinued Medications Generic Name Dose Route Start Last Admin Trade Name Freq PRN Reason Stop Dose Admin Pantoprazole Sodium 40 mg 05/09/23 07:32 05/09/23 08:00 Pantoprazole Sodium 40 Mg/10 Ml Vial IVPUSH 05/09/23 07:33 40 mg ONCE ONE Administration Medical Decision Making Differential Diagnosis Differential Diagnoses: The differential diagnosis associated with the presentation includes (cardiac ischemia, anxiety, GERD were all considered) Admission/Observation Consideration of admission/observation: Escalation of care including admission/observation considered (upon arrival this patient with chest pain was considered for admission) Lab Data MDM Lab Attestation statement: I reviewed the patient's lab results. (troponin negative) 05/09/23 07:55 05/09/23 07:55 Labs: Lab Results 05/09/23 05/09/23 05/09/23 Range/Units 07:55 07:55 07:55 WBC 5.1 (4.8-10.8) X10*3/uL RBC 4.48 L (4.60-5.80) X10*6/uL Hgb 13.2 L (14.0-18.0) g/dl Hct 38.3 L (42.0-52.0) % MCV 85.5 (80.0-98.0) fL MCH 29.5 (27.0-33.0) pg MCHC 34.5 (31.0-36.0) g/dl RDW 12.4 (11.0-16.0) % Plt Count 207 (160-400) X10*3/uL MPV 9.5 (9.4-12.4) fL Immature Gran % (Auto) 0.2 (0.0-0.4) % Neut % (Auto) 40.2 L (45-73) % Lymph % (Auto) 44.9 H (20-40) % Morrison % (Auto) 9.7 (2-11) % Eos % (Auto) 3.8 (0-4) % Baso % (Auto) 1.2 (0-2) % Lymph # (Auto) 2.3 (1.2-4.9) X10*3/uL Morrison # (Auto) 0.5 (0.1-1.2) X10*3/uL Eos # (Auto) 0.2 (0.0-0.4) X10*3/uL Baso # (Auto) 0.1 (0.0-0.2) X10*3/uL Abs Immat Gran (auto) 0.01 (0.00-0.03) X10*3/uL Absolute Neuts (auto) 2.0 (2.0-8.3) x10*3/uL Absolute Nucleated RBC 0.000 (0.0-0.012) X10*3/uL Nucleated RBC % (auto) 0.0 (0.0-0.2) /100WBC Sodium 142 (135-145) mmol/L Potassium 4.1 (3.3-5.1) mmol/L Chloride 106 (96-108) mmol/L Carbon Dioxide 28 (22-29) mmol/L Anion Gap 12 (12-20) BUN 14 (9-16) mg/dL Creatinine 0.93 (0.5-1.4) mg/dL Estim Creat Clear Calc 101.1 Estimated GFR > 60 Random Glucose 90 (60-115) mg/dL Calcium 9.5 (8.4-10.2) mg/dL Troponin I High Sens < 2.7 (<3.5-35.0) ng/L Independent Interpretation I performed an independent interpretation of an: EKG (sinus 60, no st or twave chages) External Record Review External record reviewed: Outpatient record (cardiology notes reviewed) Tests considered The following testing was considered but not selected: Chest xray considered but lungs clear oxygen normal Chronic Conditions Patient?s care impacted by: Other (anxiety) Discharge Plan Discharge Clinical Impression: Chest discomfort Patient Disposition: Home, Self-Care Instructions: Chest Pain (ED), Noncardiac Chest Pain (ED) Prescriptions: New pantoprazole [Protonix] 40 mg tablet,delayed release (DR/EC) 40 mg PO DAILY Qty: 20 0RF No Action ibuprofen 600 mg tablet 600 mg PO Q6H PRN (Reason: pain) Qty: 30 0RF hydroxyzine HCl 50 mg tablet 50 mg PO BEDTIME Qty: 14 0RF fluticasone propionate [Flonase Allergy Relief] 50 mcg/actuation spray,suspension 1 spray intranasal BID Qty: 16 0RF Rx Instructions: administer into each nostril gabapentin 100 mg capsule 100 mg PO BEDTIME Qty: 10 0RF acetaminophen [Tylenol Extra Strength] 500 mg tablet 500 mg PO Q6H PRN (Reason: fever or pain) Qty: 14 0RF naproxen 500 mg tablet 500 mg PO BID PRN (Reason: pain) 10 Days Qty: 20 0RF bupropion HCl 150 mg tablet extended release 24 hr 150 mg PO QAM naloxone 4 mg/actuation spray,non-aerosol 0 spray intranasal buprenorphine-naloxone 8-2 mg film 10 mg sublingual DAILY budesonide-formoterol [Symbicort] 160-4.5 mcg/actuation HFA aerosol inhaler 2 puff inhalation BID 30 Days Qty: 10.2 11RF diclofenac sodium [Voltaren Arthritis Pain] 1 % gel 4 g topical QID 30 Days Qty: 100 0RF Rx Instructions: apply to single knee, ankle, foot; for foot includes sole/toes/top of foot duloxetine 60 mg capsule,delayed release(DR/EC) 60 mg PO DAILY pantoprazole 20 mg tablet,delayed release (DR/EC) 40 mg PO ONCE 30 Days Qty: 60 6RF docusate sodium 100 mg capsule 0 mg PO mirtazapine 15 mg tablet 15 mg PO BEDTIME cyclobenzaprine 10 mg tablet 10 mg PO TID PRN (Reason: muscle spasm) Referrals: Rik Flaherty MD [Primary Care Provider] - 1 week
[2023-05-09 07:36] VITALS: BP 142/83; PULSE 56; RESP 15; TEMP 36.6; O2SAT 99; BMI 27.4
[2023-05-09] MEDS: Pantoprazole Sodium 40 MG/10 ML VIAL IVPUSH (08:00)
[2023-05-09 08:01] LABS: Basophils Absolute Auto 0.1 X10*3/uL (0.0-0.2); Basophils Percent Auto 1.2 % (0-2); Eosinophils Absolute Auto 0.2 X10*3/uL (0.0-0.4); Eosinophils Percent Auto 3.8 % (0-4); Hematocrit 38.3 % (42.0-52.0); Hemoglobin 13.2 g/dl (14.0-18.0); Imm Gran Abs Auto 0.01 X10*3/uL (0.00-0.03); Imm Gran Pct Auto 0.2 % (0.0-0.4); Lymphocytes Absolute Auto 2.3 X10*3/uL (1.2-4.9); Lymphocytes Percent Auto 44.9 % (20-40); MANUAL DIFF FLAG NO; Mean Corpuscular HGB Conc 34.5 g/dl (31.0-36.0); Mean Corpuscular Hemoglobin 29.5 pg (27.0-33.0); Mean Corpuscular Volume 85.5 fL (80.0-98.0); Mean Platelet Volume 9.5 fL (9.4-12.4); Monocytes Absolute Auto 0.5 X10*3/uL (0.1-1.2); Monocytes Percent Auto 9.7 % (2-11); Neutrophils Percent Auto 40.2 % (45-73); Platelet Count 207 X10*3/uL (160-400); Red Blood Count 4.48 X10*6/uL (4.60-5.80); Red Cell Distribution Width 12.4 % (11.0-16.0); White Blood Count 5.1 X10*3/uL (4.8-10.8)
[2023-05-09 08:15] LABS: Anion Gap 12 (12-20); Blood Urea Nitrogen 14 mg/dL (9-16); Calcium 9.5 mg/dL (8.4-10.2); Carbon Dioxide 28 mmol/L (22-29); Chloride 106 mmol/L (96-108); Creatinine Clr Calc Pharmacy 101.1; Estimated Glomerular Filt Rate > 60; Glucose Random 90 mg/dL (60-115); Potassium 4.1 mmol/L (3.3-5.1); Sodium 142 mmol/L (135-145)
[2023-05-09 08:35] LABS: Troponin-I High Sensitivity < 2.7 ng/L (<3.5-35.0)
[2023-05-09 08:54] VITALS: BP 122/76; PULSE 56; RESP 12; TEMP 36.7; O2SAT 96
[2023-05-09 09:59] VITALS: BP 135/78; PULSE 57; RESP 12; TEMP 36.6; O2SAT 97
== END 2023-05-09 09:30 | disposition home or self-care (01) ==
PROVIDERS: Emergency Provider Emergency Medicine; PCP Internal Medicine
DX: R07.89 Other chest pain (principal); R06.02 Shortness of breath; Z79.899 Other long term (current) drug therapy; Z87.891 Personal history of nicotine dependence
CPT/HCPCS: 36415; 80048; 84484; 85025; 93005; 96374; 99284

== ENCOUNTER 2023-05-12 06:18 | Emergency (ER) | payer OTHER, SELFPAY ==
--- NOTE | 2023-05-12 | ECG_ITS ---
Test Reason : CHEST PAIN Blood Pressure : / mmHG Vent. Rate : 053 BPM Atrial Rate : 053 BPM P-R Int : 154 ms QRS Dur : 084 ms QT Int : 436 ms P-R-T Axes : 043 034 026 degrees QTc Int : 409 ms Sinus bradycardia Otherwise normal ECG When compared with ECG of 09-MAY-2023 07:29, No significant change was found Referred By: Generic ED Physician Electronically Signed By:CHU DEVLIN
--- NOTE | ~2023-05-12 | XR_ITS ---
EXAMINATION: XR CHEST CLINICAL INFORMATION: Chest pain COMPARISON: 03/21/2023 TECHNIQUE: Frontal view of the chest was obtained. FINDINGS: No significant abnormality is noted involving the heart, lungs, mediastinum, bony thorax or soft tissues. XR/XR chest 1V IMPRESSION: No acute cardiopulmonary process.
[2023-05-12 06:26] VITALS: BP 135/78; PULSE 55; RESP 16; TEMP 36.6; O2SAT 98; BMI 27.4
[2023-05-12 06:41] LABS: Hemoglobin 13.4 g/dl (14.0-18.0); Mean Corpuscular HGB Conc 34.4 g/dl (31.0-36.0); Mean Corpuscular Hemoglobin 29.5 pg (27.0-33.0); Mean Corpuscular Volume 85.9 fL (80.0-98.0); Mean Platelet Volume 9.5 fL (9.4-12.4); Platelet Count 188 X10*3/uL (160-400); Red Blood Count 4.54 X10*6/uL (4.60-5.80); White Blood Count 5.1 X10*3/uL (4.8-10.8)
[2023-05-12 06:55] LABS: Alanine Aminotransferase 96 U/L (0-40); Albumin Level 4.1 g/dL (3.5-5.0); Alkaline Phosphatase 59 U/L (39-117); Anion Gap 12 (12-20); Aspartate Amino Transferase 40 U/L (5-37); Bilirubin Total 0.7 mg/dL (0.0-1.0); Blood Urea Nitrogen 17 mg/dL (9-16); Calcium 9.3 mg/dL (8.4-10.2); Carbon Dioxide 28 mmol/L (22-29); Chloride 107 mmol/L (96-108); Estimated Glomerular Filt Rate > 60; Glucose Random 105 mg/dL (60-115); Potassium 4.5 mmol/L (3.3-5.1); Sodium 142 mmol/L (135-145); Total Protein 7.1 g/dL (6.5-8.0)
[2023-05-12 07:11] LABS: Troponin-I High Sensitivity < 2.7 ng/L (<3.5-35.0)
[2023-05-12 08:44] VITALS: BP 148/84; PULSE 53; RESP 18; O2SAT 98
--- NOTE | 2023-05-12 09:20 | ED.CHESTPAIN ---
HPI - Chest Pain General Chief Complaint: Chest Pain Stated Complaint: chest pain Time Seen by Provider: 05/12/23 09:01 History of Present Illness HPI narrative: 42 year old male with history of acid reflux, fibromyalgia, anxiety presents to ER with concerns about [id number] chest pain that began last night while laying down. Reports the chest pain comes and goes, and is currently resolved. Says it has been an ongoing issue for about 2 years. Describes the pain as 10/10, sharp, burning, and mid-sternal. Also endorses dyspnea, shortness of breath, pleuritic pain. Reports dyspnea worsens after eating or laying down. He is also complaining about pain in his left shoulder, reporting that he has a history of fibromyalgia. Reports the shoulder pain has been ongoing for months, and is not always associated with chest pain. Denies fevers, chills, cough, acute back pain, abdominal pain, nausea, vomiting, diarrhea, constipation. Reports a history of acid reflux, which he takes pantoprazole for. Denies any personal or family history of cardiac events before 55 years old. Denies alcohol use, current substance use. Reports vaping with 3 mg nicotine, uses about 1 vape per week. Sees entry level receptionist for this pain, has appointment scheduled for tomorrow at 10:00 AM. MD complaint: chest pain Onset (ago): day(s) Timing of current episode: episodic, daily and now resolved Prior episodes: Yes Onset: during rest, after eating and awoke with symptoms Pain location: substernal Pain radiation: left arm Severity: severe Pain scale (0-10): 10 Quality: sharp and burning Exacerbating factors: inspiration, eating and supine Associated symptoms: dyspnea Risk Factors Coronary artery disease risk factors: smoking history Thoracic aortic dissection risk factors: none Related Data Home Medications Medication Instructions Recorded Confirmed bupropion HCl 150 mg 24 hr tablet, 150 mg PO QAM 06/04/20 04/07/23 extended release naloxone 4 mg/actuation nasal spray 0 spray intranasal 04/22/22 04/07/23 buprenorphine 8 mg-naloxone 2 mg 10 mg sublingual DAILY 06/12/22 04/07/23 sublingual film duloxetine 60 mg capsule,delayed 60 mg PO DAILY 01/04/23 04/07/23 release docusate sodium 100 mg capsule 0 mg PO 03/10/23 04/07/23 mirtazapine 15 mg tablet 15 mg PO BEDTIME 03/10/23 04/07/23 cyclobenzaprine 10 mg tablet 10 mg PO TID PRN muscle spasm 04/07/23 04/07/23 Previous Rx's Medication Instructions Recorded hydroxyzine HCl 50 mg tablet 50 mg PO BEDTIME #14 tabs 04/06/22 fluticasone propionate 50 1 spray intranasal BID #16 grams 05/30/22 mcg/actuation nasal spray,suspension (Flonase Allergy Relief) budesonide-formoterol HFA 160 2 puff inhalation BID 30 days 06/12/22 mcg-4.5 mcg/actuation aerosol #10.2 grams inhaler (Symbicort) gabapentin 100 mg capsule 100 mg PO BEDTIME #10 caps 08/14/22 ibuprofen 600 mg tablet 600 mg PO Q6H PRN pain #30 tabs 11/03/22 diclofenac sodium 1 % topical gel 4 g topical QID 30 days #100 grams 12/17/22 (Voltaren Arthritis Pain) pantoprazole 20 mg tablet,delayed 40 mg PO ONCE 30 days #60 tabs 01/04/23 release acetaminophen 500 mg tablet 500 mg PO Q6H PRN fever or pain 03/08/23 (Tylenol Extra Strength) #14 tabs naproxen 500 mg tablet 500 mg PO BID PRN pain 10 days #20 03/08/23 tabs pantoprazole 40 mg tablet,delayed 40 mg PO DAILY #20 tabs 05/09/23 release (Protonix) Allergies Allergy/AdvReac Type Severity Reaction Status Date / Time shellfish Allergy Unknown rash Uncoded 04/07/23 13:00 Review of Systems Review of Systems: Yes all other systems are reviewed and are negative [facility] Past Medical History Medical History Anxiety COVID-19 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 Mother No problems noted. Paternal Aunt Lung cancer Social History Social History Alcohol intake: never Patient Tobacco Use Status: Former Tobacco user Tobacco use type: Cigarette Years Smoked: 23 Years e-Cigarette/Vaping Use: Currently Using Advance Directives: No Advance Directives Information Provided: No Current occupational status: disabled Physical Exam Vital Signs: Vital Signs: Last Vital Signs Temp 97.8 F 05/12/23 06:26 Pulse 52 05/12/23 09:38 Resp 18 05/12/23 09:38 BP 133/78 05/12/23 09:38 Pulse Ox 100 05/12/23 09:38 O2 Del Method Room Air 05/12/23 09:38 BMI result Body Mass Index 27.4 Const: General: cooperative, healthy appearing, comfortable and no acute distress Nutritional Appearance: average body habitus Orientation/consciousness: patient oriented x3 Resp: Effort & Inspection: normal respiratory effort and able to speak in complete sentences Auscultation: clear to auscultation bilaterally Cardio: Rate: regular rate Rhythm: regular rhythm Neuro: General: patient oriented x3 Extrem: Right lower extremity: lower leg Details: no edema Left lower extremity: lower leg Details: no edema Medications Administered Discontinued Medications Generic Name Dose Route Start Last Admin Trade Name Freq PRN Reason Stop Dose Admin Acetaminophen 975 mg 05/12/23 09:44 05/12/23 09:50 Acetaminophen 325 Mg Tablet PO 05/12/23 09:45 975 mg ONCE ONE Administration Medical Decision Making Medical Decision Making [facility] Narrative: 42 year old male with history of acid reflux, fibromyalgia, anxiety presents with [id number] chest pain, dyspnea. On physical exam, patient is speaking in full sentences and appears in no acute distress. Auscultation of heart and lungs is unremarkable. No leg edema noted. Workup including EKG, chest X-ray, troponin unremarkable. He has been seen here multiple times for similar complaints in the past. Had negative CTA. States his symptoms have been present since he had COVID. Offered IM toradol for patient pain but he refused. Will provide PO tylenol. Patient is safe for discharge. Should follow with entry level receptionist tomorrow about chest pain. Can increase omeprazole dose. Recommend no spicy foods, alcohol, coffee. Recommend sitting up after eating and not eating for 2 hours before bed. Differential Diagnosis Differential Diagnoses: The differential diagnosis associated with the presentation includes Acid reflux, myocardial infarction, pulmonary embolism, chostochrondritis, anxiety, Admission/Observation Consideration of admission/observation: Escalation of care including admission/observation considered persistent chest pains, considered obs/admit Lab Data MDM Lab Attestation statement: I reviewed the patient's lab results. unremarkable, negative trop 05/12/23 06:34 05/12/23 06:34 Labs: Lab Results 05/12/23 05/12/23 05/12/23 Range/Units 06:34 06:34 06:34 WBC 5.1 (4.8-10.8) X10*3/uL RBC 4.54 L (4.60-5.80) X10*6/uL Hgb 13.4 L (14.0-18.0) g/dl Hct 39.0 L (42.0-52.0) % MCV 85.9 (80.0-98.0) fL MCH 29.5 (27.0-33.0) pg MCHC 34.4 (31.0-36.0) g/dl RDW 12.0 (11.0-16.0) % Plt Count 188 (160-400) X10*3/uL MPV 9.5 (9.4-12.4) fL Absolute Nucleated RBC 0.000 (0.0-0.012) X10*3/uL Nucleated RBC % (auto) 0.0 (0.0-0.2) /100WBC Sodium 142 (135-145) mmol/L Potassium 4.5 (3.3-5.1) mmol/L Chloride 107 (96-108) mmol/L Carbon Dioxide 28 (22-29) mmol/L Anion Gap 12 (12-20) BUN 17 H (9-16) mg/dL Creatinine 0.99 (0.5-1.4) mg/dL Estim Creat Clear Calc 95.0 Estimated GFR > 60 Random Glucose 105 (60-115) mg/dL Calcium 9.3 (8.4-10.2) mg/dL Total Bilirubin 0.7 (0.0-1.0) mg/dL AST 40 H (5-37) U/L ALT 96 H (0-40) U/L Alkaline Phosphatase 59 (39-117) U/L Troponin I High Sens < 2.7 (<3.5-35.0) ng/L Total Protein 7.1 (6.5-8.0) g/dL Albumin 4.1 (3.5-5.0) g/dL Independent Interpretation I performed an independent interpretation of an: EKG and Plain X-Ray Interpretation: I have reviewed the patient's EKG and chest X-ray and I am in agreement with the entry level receptionist. EKG w/ sinus bradycardia, HR 53 bpm, normal PT interval, no ST segment elevations or depressions, no changes from prior Radiology Impression Discussion of test interpretation with radiology: I have reviewed the radiologist's reading. Radiologist Impression: EXAMINATION: XR CHEST CLINICAL INFORMATION: Chest pain COMPARISON: 03/21/2023 TECHNIQUE: Frontal view of the chest was obtained. FINDINGS: No significant abnormality is noted involving the heart, lungs, mediastinum, bony thorax or soft tissues. XR/XR chest 1V IMPRESSION: No acute cardiopulmonary process. External Record Review External record reviewed: Outpatient record, Prior outpatient labs and Prior outpatient radiology Prescription Management I considered prescription management with: Pain Medication Tylenol Chronic Conditions Patient?s care impacted by: Other (anxiety, fibromyalgia) Critical Care Time Critical Care Time Critical Care Time: No Discharge Plan Discharge Clinical Impression: Atypical chest pain Patient Disposition: Home, Self-Care Instructions: Noncardiac Chest Pain (ED) Additional Instructions: Your workup today was unremarkable. Follow-up with your entry level receptionist tomorrow as scheduled. Recommend also following back up with pulmonology for further evaluation and treatment. If you develop new or worsening symptoms call 911 or come back to the ER for further evaluation. Prescriptions: No Action ibuprofen 600 mg tablet 600 mg PO Q6H PRN (Reason: pain) Qty: 30 0RF hydroxyzine HCl 50 mg tablet 50 mg PO BEDTIME Qty: 14 0RF fluticasone propionate [Flonase Allergy Relief] 50 mcg/actuation spray,suspension 1 spray intranasal BID Qty: 16 0RF Rx Instructions: administer into each nostril gabapentin 100 mg capsule 100 mg PO BEDTIME Qty: 10 0RF acetaminophen [Tylenol Extra Strength] 500 mg tablet 500 mg PO Q6H PRN (Reason: fever or pain) Qty: 14 0RF naproxen 500 mg tablet 500 mg PO BID PRN (Reason: pain) 10 Days Qty: 20 0RF pantoprazole [Protonix] 40 mg tablet,delayed release (DR/EC) 40 mg PO DAILY Qty: 20 0RF bupropion HCl 150 mg tablet extended release 24 hr 150 mg PO QAM naloxone 4 mg/actuation spray,non-aerosol 0 spray intranasal buprenorphine-naloxone 8-2 mg film 10 mg sublingual DAILY budesonide-formoterol [Symbicort] 160-4.5 mcg/actuation HFA aerosol inhaler 2 puff inhalation BID 30 Days Qty: 10.2 11RF diclofenac sodium [Voltaren Arthritis Pain] 1 % gel 4 g topical QID 30 Days Qty: 100 0RF Rx Instructions: apply to single knee, ankle, foot; for foot includes sole/toes/top of foot duloxetine 60 mg capsule,delayed release(DR/EC) 60 mg PO DAILY pantoprazole 20 mg tablet,delayed release (DR/EC) 40 mg PO ONCE 30 Days Qty: 60 6RF docusate sodium 100 mg capsule 0 mg PO mirtazapine 15 mg tablet 15 mg PO BEDTIME cyclobenzaprine 10 mg tablet 10 mg PO TID PRN (Reason: muscle spasm) Stand Alone Forms: Work/School Release Interventions: ED Discharge Assessment Last Done: 05/12/23 10:41
[2023-05-12 09:38] VITALS: BP 133/78; PULSE 52; RESP 18; O2SAT 100
[2023-05-12] MEDS: Acetaminophen 325 MG TABLET 975 MG PO (09:50)
--- NOTE | 2023-05-12 09:52 | PC.NURSE ---
pt a&ox3. respirations even and unlabored. pt reporting 5/10 shoulder pain at this time. pt denies chest pain, nausea and vomiting. vss.
== END 2023-05-12 10:42 | disposition home or self-care (01) ==
PROVIDERS: Emergency Provider Emergency Medicine; PCP Internal Medicine
DX: R07.89 Other chest pain (principal); R06.02 Shortness of breath; Z87.891 Personal history of nicotine dependence
CPT/HCPCS: 36415; 71045; 80053; 84484; 85027; 93005; 99283; 99284

== ENCOUNTER 2023-05-13 10:25 | Outpatient (REF) | payer OTHER, SELFPAY ==
--- NOTE | 2023-05-13 10:30 | EMG_ITS ---
Left median and ulnar motor and sensory studies were performed and medial and lateral antecubital sensory and radial sensory studies were performed. The patient refused to have needle examination. IMPRESSION: 1. [id number] left median neuropathy across carpal tunnel. 2. Mild left ulnar neuropathy across cubital tunnel. MD RIRI Costello/NIKKI / [phone]
== END 2023-05-13 10:26 | disposition home or self-care (01) ==
LOC: HO.NEURO 10:25
PROVIDERS: PCP Internal Medicine; Visit Provider Student in an Organized Health Care Education/Training Program
DX: Z13.89 Encounter for screening for other disorder (principal)

== ENCOUNTER 2023-05-15 04:27 | Emergency (ER) | payer OTHER, SELFPAY ==
[2023-05-15 04:45] VITALS: BP 125/86; BP 128/75; PULSE 76; PULSE 81; RESP 18; TEMP 36.9; O2SAT 97; O2SAT 98; BMI 26.6
[2023-05-15 04:56] VITALS: BP 131/76; PULSE 64; RESP 18; TEMP 36.8; O2SAT 95
[2023-05-15 05:40] LABS: Hematocrit 38.7 % (42.0-52.0); Hemoglobin 13.7 g/dl (14.0-18.0); Mean Corpuscular HGB Conc 35.4 g/dl (31.0-36.0); Mean Corpuscular Hemoglobin 29.8 pg (27.0-33.0); Mean Corpuscular Volume 84.3 fL (80.0-98.0); Mean Platelet Volume 9.5 fL (9.4-12.4); Platelet Count 203 X10*3/uL (160-400); Red Blood Count 4.59 X10*6/uL (4.60-5.80); Red Cell Distribution Width 12.2 % (11.0-16.0); White Blood Count 5.3 X10*3/uL (4.8-10.8)
[2023-05-15 05:53] LABS: Alanine Aminotransferase 83 U/L (0-40); Alkaline Phosphatase 58 U/L (39-117); Anion Gap 11 (12-20); Aspartate Amino Transferase 39 U/L (5-37); Bilirubin Total 0.5 mg/dL (0.0-1.0); Blood Urea Nitrogen 15 mg/dL (9-16); Calcium 9.5 mg/dL (8.4-10.2); Carbon Dioxide 26 mmol/L (22-29); Chloride 107 mmol/L (96-108); Estimated Glomerular Filt Rate > 60; Glucose Random 180 mg/dL (60-115); Sodium 140 mmol/L (135-145); Total Protein 6.9 g/dL (6.5-8.0)
--- NOTE | 2023-05-15 06:45 | ED_ITS ---
HPI - Abdominal Pain General Chief Complaint: Abdominal Pain Stated Complaint: abd pain Time Seen by Provider: 05/15/23 06:34 Source: patient, EMS and old records reviewed Mode of arrival: EMS Limitations: no limitations History of Present Illness HPI narrative: 42-year-old male with history of fibromyalgia, anxiety, anemia, her palpitations and atypical chest pain since he had COVID-19 about 2 years ago (seen in the ER several times for this) who presents to the ER from home c/o diffuse abdominal pain, nausea and loose stool x1 after eating potatoes with cheese yesterday. had similar symptoms after eating the same thing except she vomited. Patient states the pain started around 03:00. It has since subsided. He did have 1 episode of loose stool in the ER, and had no blood. He has not vomited. No fever or chills. No urinary symptoms. No chest pain. MD elicited complaint: abdominal pain Onset (ago): hour(s) Pain Consistency: now resolved Location: diffuse Severity: moderate Quality: cramping Radiation: none Migration to: no migration Exacerbating factors: nothing Relieving factors: nothing Associated symptoms: nausea Related Data Home Medications Medication Instructions Recorded Confirmed bupropion HCl 150 mg 24 hr tablet, 150 mg PO QAM 06/04/20 04/07/23 extended release naloxone 4 mg/actuation nasal spray 0 spray intranasal 04/22/22 04/07/23 buprenorphine 8 mg-naloxone 2 mg 10 mg sublingual DAILY 06/12/22 04/07/23 sublingual film duloxetine 60 mg capsule,delayed 60 mg PO DAILY 01/04/23 04/07/23 release docusate sodium 100 mg capsule 0 mg PO 03/10/23 04/07/23 mirtazapine 15 mg tablet 15 mg PO BEDTIME 03/10/23 04/07/23 cyclobenzaprine 10 mg tablet 10 mg PO TID PRN muscle spasm 04/07/23 04/07/23 Previous Rx's Medication Instructions Recorded hydroxyzine HCl 50 mg tablet 50 mg PO BEDTIME #14 tabs 04/06/22 fluticasone propionate 50 1 spray intranasal BID #16 grams 05/30/22 mcg/actuation nasal spray,suspension (Flonase Allergy Relief) budesonide-formoterol HFA 160 2 puff inhalation BID 30 days 06/12/22 mcg-4.5 mcg/actuation aerosol #10.2 grams inhaler (Symbicort) gabapentin 100 mg capsule 100 mg PO BEDTIME #10 caps 08/14/22 ibuprofen 600 mg tablet 600 mg PO Q6H PRN pain #30 tabs 11/03/22 diclofenac sodium 1 % topical gel 4 g topical QID 30 days #100 grams 12/17/22 (Voltaren Arthritis Pain) pantoprazole 20 mg tablet,delayed 40 mg (2 x 20 mg) PO ONCE 30 days 01/04/23 release #60 tabs acetaminophen 500 mg tablet 500 mg PO Q6H PRN fever or pain 03/08/23 (Tylenol Extra Strength) #14 tabs naproxen 500 mg tablet 500 mg PO BID PRN pain 10 days #20 03/08/23 tabs pantoprazole 40 mg tablet,delayed 40 mg PO DAILY #20 tabs 05/09/23 release (Protonix) ondansetron 4 mg disintegrating 4 mg PO Q8H PRN nausea and 05/15/23 tablet vomiting #7 tabs Allergies Allergy/AdvReac Type Severity Reaction Status Date / Time shellfish Allergy Unknown rash Uncoded 04/07/23 13:00 Review of Systems Review of Systems Yes all other systems are reviewed and are negative [facility] Past Medical History Medical History Anxiety COVID-19 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 Mother No problems noted. Paternal Aunt Lung cancer Social History Social History Alcohol intake: never Patient Tobacco Use Status: Former Tobacco user Tobacco use type: Cigarette Years Smoked: 23 Years Smoked in Last 30 Days: No e-Cigarette/Vaping Use: Currently Using Use of substances other than those prescribed or required for medical reasons: No Advance Directives: No Advance Directives Information Provided: Yes Current occupational status: disabled Physical Exam ED Vital Signs: Vital Signs - 24 hr 05/15/23 04:45 05/15/23 04:56 Temperature 98.4 F 98.2 F Pulse Rate 81 64 Respiratory Rate 18 18 Blood Pressure 125/86 131/76 Pulse Oximetry 97 95 Oxygen Delivery Method Room Air Room Air BMI result Body Mass Index 26.6 Appearance: Alert. Oriented X3. No acute distress. Head: normocephalic, atraumatic. Eyes: Pupils equal, round and reactive to light. ENT: Pharynx normal. No tonsillar swelling or exudate. Neck: Normal inspection. Neck supple. CVS: Normal heart rate and rhythm. Pulses normal. Respiratory: No respiratory distress. Breath sounds normal. Abdomen: Soft and nontender. +BS x4 Skin: Skin warm and dry. Normal skin color. Normal skin turgor. No rashes. Extremities: No lower extremity edema. No joint swelling. Neuro/psych: Oriented X 3. No motor deficit. No sensory deficit. CN II-XII intact. Normal speech and cognition. Medical Decision Making Medical Decision Making [facility] Narrative: 42-year-old male presenting to the ER for evaluation of abdominal pain nausea and 1 episode of loose stool after eating potatoes in some cheese. with similar symptoms. His symptoms have improved. His abdomen is nontender his lab workup shows some mild chronic transaminitis. He has no right upper quadrant tenderness on examination. Most likely a mild gastroenteritis. At this time he is stable for discharge home with supportive care. Return precautions were discussed. Patient agrees with plan. Differential Diagnosis Differential Diagnoses: The differential diagnosis associated with the presentation includes Gastroenteritis, gastritis, food poisoning, less likely diverticulitis, cholecystitis or appendicitis Lab Data [facility] Lab Attestation statement: I reviewed the patient's lab results. No leukocytosis, stable anemia, chronic, mild elevation of LFTs 05/15/23 05:35 05/15/23 05:35 Labs: Lab Results 05/15/23 Range/Units 05:35 WBC 5.3 (4.8-10.8) X10*3/uL RBC 4.59 L (4.60-5.80) X10*6/uL Hgb 13.7 L (14.0-18.0) g/dl Hct 38.7 L (42.0-52.0) % MCV 84.3 (80.0-98.0) fL MCH 29.8 (27.0-33.0) pg MCHC 35.4 (31.0-36.0) g/dl RDW 12.2 (11.0-16.0) % Plt Count 203 (160-400) X10*3/uL MPV 9.5 (9.4-12.4) fL Absolute Nucleated RBC 0.000 (0.0-0.012) X10*3/uL Nucleated RBC % (auto) 0.0 (0.0-0.2) /100WBC Sodium 140 (135-145) mmol/L Potassium 4.0 (3.3-5.1) mmol/L Chloride 107 (96-108) mmol/L Carbon Dioxide 26 (22-29) mmol/L Anion Gap 11 L (12-20) BUN 15 (9-16) mg/dL Creatinine 0.98 (0.5-1.4) mg/dL Estim Creat Clear Calc 95.0 Estimated GFR > 60 Random Glucose 180 H (60-115) mg/dL Calcium 9.5 (8.4-10.2) mg/dL Total Bilirubin 0.5 (0.0-1.0) mg/dL AST 39 H (5-37) U/L ALT 83 H (0-40) U/L Alkaline Phosphatase 58 (39-117) U/L Total Protein 6.9 (6.5-8.0) g/dL Albumin 4.0 (3.5-5.0) g/dL Independent Historian Clinical information obtained from an independent historian. History obtained from or confirmed by: EMS External Record Review External record reviewed: Outpatient record, Prior outpatient labs and Prior outpatient radiology Tests considered The following testing was considered but not selected: Considered CT scan of the abdomen however his abdomen was soft and nontender Prescription Management I considered prescription management with: Pain Medication Chronic Conditions Patient?s care impacted by: Other (Anxiety) Discharge Plan Discharge Clinical Impression: Gastroenteritis Patient Disposition: Home, Self-Care Instructions: Gastroenteritis (DC) Additional Instructions: You lab workup today was unremarkable. You most likely have a viral GI bug also known as gastroenteritis, possible food poisoning. Treatment is supportive care, symptoms usually resolve on their own in 48-72 hours. Recommend rest and plenty of oral hydration. Stick to a bland diet like soup and toast while you are not feeling well. Take the prescribed medication as needed for nausea. Recommend over the counter Pepto Bismol or Imodium for upset stomach and diarrhea. Follow up with your doctor as needed. If you develop new or worsening symptoms call 911 or come back to the ER for further evaluation. Prescriptions: New ondansetron 4 mg tablet,disintegrating 4 mg PO Q8H PRN (Reason: nausea and vomiting) Qty: 7 0RF No Action ibuprofen 600 mg tablet 600 mg PO Q6H PRN (Reason: pain) Qty: 30 0RF hydroxyzine HCl 50 mg tablet 50 mg PO BEDTIME Qty: 14 0RF fluticasone propionate [Flonase Allergy Relief] 50 mcg/actuation spray,suspension 1 spray intranasal BID Qty: 16 0RF Rx Instructions: administer into each nostril gabapentin 100 mg capsule 100 mg PO BEDTIME Qty: 10 0RF acetaminophen [Tylenol Extra Strength] 500 mg tablet 500 mg PO Q6H PRN (Reason: fever or pain) Qty: 14 0RF naproxen 500 mg tablet 500 mg PO BID PRN (Reason: pain) 10 Days Qty: 20 0RF pantoprazole [Protonix] 40 mg tablet,delayed release (DR/EC) 40 mg PO DAILY Qty: 20 0RF bupropion HCl 150 mg tablet extended release 24 hr 150 mg PO QAM naloxone 4 mg/actuation spray,non-aerosol 0 spray intranasal buprenorphine-naloxone 8-2 mg film 10 mg sublingual DAILY budesonide-formoterol [Symbicort] 160-4.5 mcg/actuation HFA aerosol inhaler 2 puff inhalation BID 30 Days Qty: 10.2 11RF diclofenac sodium [Voltaren Arthritis Pain] 1 % gel 4 g topical QID 30 Days Qty: 100 0RF Rx Instructions: apply to single knee, ankle, foot; for foot includes sole/toes/top of foot duloxetine 60 mg capsule,delayed release(DR/EC) 60 mg PO DAILY pantoprazole 20 mg tablet,delayed release (DR/EC) 40 mg PO ONCE 30 Days Qty: 60 6RF docusate sodium 100 mg capsule 0 mg PO mirtazapine 15 mg tablet 15 mg PO BEDTIME cyclobenzaprine 10 mg tablet 10 mg PO TID PRN (Reason: muscle spasm) Interventions: ED Discharge Assessment Last Done: 05/15/23 07:02 Discharge Date/Time: 05/15/23 07:03
== END 2023-05-15 07:03 | disposition home or self-care (01) ==
PROVIDERS: Emergency Provider Internal Medicine
DX: K52.9 Noninfective gastroenteritis and colitis, unspecified (principal); K21.9 Gastro-esophageal reflux disease without esophagitis; Z87.891 Personal history of nicotine dependence; Z79.899 Other long term (current) drug therapy
CPT/HCPCS: 36415; 80053; 85027; 99283; 99284

== ENCOUNTER → 2023-05-21 10:54 | Outpatient (REF) | payer OTHER, SELFPAY ==
--- NOTE | 2023-05-21 10:57 | CA_ITS ---
Acquisition Time: 2023-05-21 11:27:01 Total Exercise Time: 00:09:45 Test Indications: SOB Medications: SEE H Protocol: JHON Max HR: 171 BPM 96% of Pred: 178 BPM Max BP: 174/050 mmHG Max Work Load: 11.3 METS Exercise stress test exercise 9 min 45 sec of John protocol achieving 96% MPHR, with baseline 4/10 sharp chest pain, 0/10 for chest discomfort during and after exercise, with mild SOB, without arrhythmias, with normtensive response to exercise, without EKG changes. Echo images obtained by tech at rest and immedately post peak exercise. Definity contrast used. Test reviewed with . Referred By: Ike Amaya Overread By: Layla Leon
== END ==
LOC: HO.CARD 10:54
PROVIDERS: PCP Internal Medicine; Visit Provider Internal Medicine
DX: R06.02 Shortness of breath (principal)
CPT/HCPCS: 93350; Q9957

== ENCOUNTER → 2023-05-21 10:57 | Outpatient (BNV) | payer OTHER, SELFPAY | PROVIDERS: PCP Internal Medicine; Visit Provider Nurse Practitioner | DX: I25.10 Atherosclerotic heart disease of native coronary artery without angina pectoris (principal) | CPT/HCPCS: 93016; 93018; 93350; 93352 ==

== ENCOUNTER 2023-05-22 02:39 | Emergency (ER) | payer OTHER, SELFPAY ==
[2023-05-22 02:43] VITALS: BP 128/72; PULSE 66; RESP 18; TEMP 37.1; O2SAT 97; BMI 27.3
--- NOTE | 2023-05-22 02:53 | ECG_ITS ---
Test Reason : CHEST PAIN Blood Pressure : / mmHG Vent. Rate : 057 BPM Atrial Rate : 057 BPM P-R Int : 150 ms QRS Dur : 086 ms QT Int : 436 ms P-R-T Axes : 041 030 006 degrees QTc Int : 424 ms Sinus bradycardia Otherwise normal ECG When compared with ECG of 12-MAY-2023 06:24, No significant change was found Referred By: Generic ED Physician Electronically Signed By:CHU DEVLIN
[2023-05-22 03:08] LABS: Basophils Absolute Auto 0.1 X10*3/uL (0.0-0.2); Basophils Percent Auto 1.2 % (0-2); Eosinophils Absolute Auto 0.2 X10*3/uL (0.0-0.4); Eosinophils Percent Auto 3.4 % (0-4); Hematocrit 38.7 % (42.0-52.0); Hemoglobin 13.5 g/dl (14.0-18.0); Imm Gran Abs Auto 0.01 X10*3/uL (0.00-0.03); Imm Gran Pct Auto 0.2 % (0.0-0.4); Lymphocytes Absolute Auto 2.1 X10*3/uL (1.2-4.9); Lymphocytes Percent Auto 42.4 % (20-40); MANUAL DIFF FLAG NO; Mean Corpuscular HGB Conc 34.9 g/dl (31.0-36.0); Mean Corpuscular Hemoglobin 29.7 pg (27.0-33.0); Mean Corpuscular Volume 85.1 fL (80.0-98.0); Mean Platelet Volume 9.4 fL (9.4-12.4); Monocytes Absolute Auto 0.5 X10*3/uL (0.1-1.2); Monocytes Percent Auto 9.4 % (2-11); Neutrophils Absolute Auto 2.2 x10*3/uL (2.0-8.3); Neutrophils Percent Auto 43.4 % (45-73); Platelet Count 212 X10*3/uL (160-400); Red Blood Count 4.55 X10*6/uL (4.60-5.80); Red Cell Distribution Width 12.2 % (11.0-16.0)
[2023-05-22 03:21] LABS: Anion Gap 12 (12-20); Blood Urea Nitrogen 13 mg/dL (9-16); Calcium 9.4 mg/dL (8.4-10.2); Carbon Dioxide 30 mmol/L (22-29); Chloride 105 mmol/L (96-108); Creatinine Clr Calc Pharmacy 110.3; Estimated Glomerular Filt Rate > 60; Glucose Random 131 mg/dL (60-115); Potassium 3.8 mmol/L (3.3-5.1); Sodium 143 mmol/L (135-145)
[2023-05-22 03:30] LABS: Troponin-I High Sensitivity < 2.7 ng/L (<3.5-35.0)
[2023-05-22 04:12] VITALS: BP 112/74; PULSE 68; RESP 17; O2SAT 96
--- NOTE | 2023-05-22 05:10 | ED_ITS ---
HPI - Chest Pain General Chief Complaint: Chest Pain Stated Complaint: Chest Pain Time Seen by Provider: 05/22/23 05:10 Source: patient Mode of arrival: ambulatory Limitations: no limitations History of Present Illness HPI narrative: Patient chronic recurrent chest pain for last 3 years been here multiple times had stress test on which was negative been here multiple times last 2 weeks cardiac workup negative comes here for the same pain started few days ago had a mid chest feels anxious Related Data Home Medications Medication Instructions Recorded Confirmed bupropion HCl 150 mg 24 hr tablet, 150 mg PO QAM 06/04/20 04/07/23 extended release naloxone 4 mg/actuation nasal spray 0 spray intranasal 04/22/22 04/07/23 buprenorphine 8 mg-naloxone 2 mg 10 mg sublingual DAILY 06/12/22 04/07/23 sublingual film duloxetine 60 mg capsule,delayed 60 mg PO DAILY 01/04/23 04/07/23 release docusate sodium 100 mg capsule 0 mg PO 03/10/23 04/07/23 mirtazapine 15 mg tablet 15 mg PO BEDTIME 03/10/23 04/07/23 cyclobenzaprine 10 mg tablet 10 mg PO TID PRN muscle spasm 04/07/23 04/07/23 Previous Rx's Medication Instructions Recorded hydroxyzine HCl 50 mg tablet 50 mg PO BEDTIME #14 tabs 04/06/22 fluticasone propionate 50 1 spray intranasal BID #16 grams 05/30/22 mcg/actuation nasal spray,suspension (Flonase Allergy Relief) budesonide-formoterol HFA 160 2 puff inhalation BID 30 days 06/12/22 mcg-4.5 mcg/actuation aerosol #10.2 grams inhaler (Symbicort) gabapentin 100 mg capsule 100 mg PO BEDTIME #10 caps 08/14/22 ibuprofen 600 mg tablet 600 mg PO Q6H PRN pain #30 tabs 11/03/22 diclofenac sodium 1 % topical gel 4 g topical QID 30 days #100 grams 12/17/22 (Voltaren Arthritis Pain) pantoprazole 20 mg tablet,delayed 40 mg (2 x 20 mg) PO ONCE 30 days 01/04/23 release #60 tabs acetaminophen 500 mg tablet 500 mg PO Q6H PRN fever or pain 03/08/23 (Tylenol Extra Strength) #14 tabs naproxen 500 mg tablet 500 mg PO BID PRN pain 10 days #20 03/08/23 tabs pantoprazole 40 mg tablet,delayed 40 mg PO DAILY #20 tabs 05/09/23 release (Protonix) ondansetron 4 mg disintegrating 4 mg PO Q8H PRN nausea and 05/15/23 tablet vomiting #7 tabs Allergies Allergy/AdvReac Type Severity Reaction Status Date / Time shellfish Allergy Unknown rash Uncoded 04/07/23 13:00 Review of Systems 2 Review of Systems: Yes all other systems are reviewed and are negative [facility] Past Medical History Medical History Scrotal pain Rhinosinusitis 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 Mother No problems noted. Paternal Aunt Lung cancer Social History Social History Alcohol intake: never Patient Tobacco Use Status: Former Tobacco user Tobacco use type: Cigarette Years Smoked: 23 Years e-Cigarette/Vaping Use: Currently Using Advance Directives: No Advance Directives Information Provided: No Current occupational status: disabled Physical Exam 2 Vital Signs: Vital Signs: Last Vital Signs Temp 98.7 F 05/22/23 02:43 Pulse 68 05/22/23 04:12 Resp 17 05/22/23 04:12 BP 112/74 05/22/23 04:12 Pulse Ox 96 05/22/23 04:12 O2 Del Method Room Air 05/22/23 04:12 BMI result Body Mass Index 27.3 Appearance: Alert. Oriented X3. No acute distress. Eyes: PERRLA, No Nystagmus ENT: Pharynx normal. Oral Mucosa moist Neck: Normal inspection. Neck supple. CVS: Normal heart rate and rhythm. Pulses normal. Respiratory: No respiratory distress. Equal air entry bilateral, no wheezing/rales/rhonchi Abdomen: Soft and nontender. Bowel sounds are present, no mass palpable, no CVA tenderness Skin: Skin warm and dry. Normal skin color. Normal skin turgor. Extremities: No lower extremity edema. No calf tenderness Neuro: Oriented X 3. No motor deficit. No sensory deficit.No cerebellar signs , cranial nerves II-XII intact Medical Decision Making Medical Decision Making [facility] Narrative: Patient with recurrent chest pain likely with anxiety/panic worth multiple workup negative heart score of 0 discharge patient home Differential Diagnosis Differential Diagnoses: The differential diagnosis associated with the presentation includes ACS/anxiety/GERD/musculoskeletal Lab Data [facility] Lab Attestation statement: I reviewed the patient's lab results. 05/22/23 03:03 05/22/23 03:03 Labs: Lab Results 05/22/23 Range/Units 03:03 WBC 5.0 (4.8-10.8) X10*3/uL RBC 4.55 L (4.60-5.80) X10*6/uL Hgb 13.5 L (14.0-18.0) g/dl Hct 38.7 L (42.0-52.0) % MCV 85.1 (80.0-98.0) fL MCH 29.7 (27.0-33.0) pg MCHC 34.9 (31.0-36.0) g/dl RDW 12.2 (11.0-16.0) % Plt Count 212 (160-400) X10*3/uL MPV 9.4 (9.4-12.4) fL Immature Gran % (Auto) 0.2 (0.0-0.4) % Neut % (Auto) 43.4 L (45-73) % Lymph % (Auto) 42.4 H (20-40) % Collier % (Auto) 9.4 (2-11) % Eos % (Auto) 3.4 (0-4) % Baso % (Auto) 1.2 (0-2) % Lymph # (Auto) 2.1 (1.2-4.9) X10*3/uL Collier # (Auto) 0.5 (0.1-1.2) X10*3/uL Eos # (Auto) 0.2 (0.0-0.4) X10*3/uL Baso # (Auto) 0.1 (0.0-0.2) X10*3/uL Abs Immat Gran (auto) 0.01 (0.00-0.03) X10*3/uL Absolute Neuts (auto) 2.2 (2.0-8.3) x10*3/uL Absolute Nucleated RBC 0.000 (0.0-0.012) X10*3/uL Nucleated RBC % (auto) 0.0 (0.0-0.2) /100WBC Sodium 143 (135-145) mmol/L Potassium 3.8 (3.3-5.1) mmol/L Chloride 105 (96-108) mmol/L Carbon Dioxide 30 H (22-29) mmol/L Anion Gap 12 (12-20) BUN 13 (9-16) mg/dL Creatinine 0.85 (0.5-1.4) mg/dL Estim Creat Clear Calc 110.3 Estimated GFR > 60 Random Glucose 131 H (60-115) mg/dL Calcium 9.4 (8.4-10.2) mg/dL Troponin I High Sens < 2.7 (<3.5-35.0) ng/L Independent Interpretation I performed an independent interpretation of an: EKG Interpretation: Sinus bradycardia heart rate 57 beats per minute normal interval normal axis no acute ST T wave changes no acute ischemia Discharge Plan Discharge Clinical Impression: Atypical chest pain Patient Disposition: Home, Self-Care Instructions: Noncardiac Chest Pain (ED) Additional Instructions: Your chest pain is not coming from the heart please follow with PCP Take your acid medications as prescribed Prescriptions: No Action ibuprofen 600 mg tablet 600 mg PO Q6H PRN (Reason: pain) Qty: 30 0RF hydroxyzine HCl 50 mg tablet 50 mg PO BEDTIME Qty: 14 0RF fluticasone propionate [Flonase Allergy Relief] 50 mcg/actuation spray,suspension 1 spray intranasal BID Qty: 16 0RF Rx Instructions: administer into each nostril gabapentin 100 mg capsule 100 mg PO BEDTIME Qty: 10 0RF acetaminophen [Tylenol Extra Strength] 500 mg tablet 500 mg PO Q6H PRN (Reason: fever or pain) Qty: 14 0RF naproxen 500 mg tablet 500 mg PO BID PRN (Reason: pain) 10 Days Qty: 20 0RF pantoprazole [Protonix] 40 mg tablet,delayed release (DR/EC) 40 mg PO DAILY Qty: 20 0RF ondansetron 4 mg tablet,disintegrating 4 mg PO Q8H PRN (Reason: nausea and vomiting) Qty: 7 0RF bupropion HCl 150 mg tablet extended release 24 hr 150 mg PO QAM naloxone 4 mg/actuation spray,non-aerosol 0 spray intranasal buprenorphine-naloxone 8-2 mg film 10 mg sublingual DAILY budesonide-formoterol [Symbicort] 160-4.5 mcg/actuation HFA aerosol inhaler 2 puff inhalation BID 30 Days Qty: 10.2 11RF diclofenac sodium [Voltaren Arthritis Pain] 1 % gel 4 g topical QID 30 Days Qty: 100 0RF Rx Instructions: apply to single knee, ankle, foot; for foot includes sole/toes/top of foot duloxetine 60 mg capsule,delayed release(DR/EC) 60 mg PO DAILY pantoprazole 20 mg tablet,delayed release (DR/EC) 40 mg PO ONCE 30 Days Qty: 60 6RF docusate sodium 100 mg capsule 0 mg PO mirtazapine 15 mg tablet 15 mg PO BEDTIME cyclobenzaprine 10 mg tablet 10 mg PO TID PRN (Reason: muscle spasm)
== END 2023-05-22 05:30 | disposition home or self-care (01) ==
PROVIDERS: Emergency Provider Internal Medicine; PCP Internal Medicine
DX: R07.89 Other chest pain (principal); R00.1 Bradycardia, unspecified; Z79.899 Other long term (current) drug therapy
CPT/HCPCS: 36415; 80048; 84484; 85025; 93005; 99284; 99285

== ENCOUNTER 2023-07-05 15:36 | Outpatient (AMB) | payer OTHER, SELFPAY ==
--- NOTE | 2023-07-05 15:38 | MHC.OFFVIS ---
Intake Vital Signs 07/05/23 15:39 Height 5 ft 6 in Weight 172 lb 6.424 oz BMI 27.8 BP 120/72 Blood Pressure Location Lt brachial Position Sitting Pulse 74 Pulse Source Pulse Oximeter Intake Visit Reasons: f/up holter HS/ stress Intake Note: f/u holter HS/stress [employer]oe [employer] Cobbler Required: No Allergies shellfish Allergy (Unknown, Uncoded 04/07/23 13:00) rash Medication List - Last Reconciled 07/05/23 by Ira Hernández NP-C acetaminophen (Tylenol Extra Strength) 500 mg PO Q6H PRN budesonide-formoterol 160-4.5 mcg/actuation (Symbicort) 2 puffs inhalation BID 30 days buprenorphine-naloxone 8-2 mg 10 mg sublingual DAILY bupropion HCl 150 mg PO QAM cyclobenzaprine 10 mg PO TID PRN diclofenac sodium 1% (Voltaren Arthritis Pain) 4 grams topical QID 30 days docusate sodium 0 mg PO duloxetine 60 mg PO DAILY fluticasone propionate 50 mcg/actuation (Flonase Allergy Relief) 1 spray intranasal BID gabapentin 100 mg PO BEDTIME hydroxyzine HCl 50 mg PO BEDTIME ibuprofen 600 mg PO Q6H PRN mirtazapine 15 mg PO BEDTIME naloxone 4 mg/actuation 0 sprays intranasal naproxen 500 mg PO BID PRN 10 days pantoprazole (Protonix) 40 mg PO DAILY pantoprazole 40 mg (2 x 20 mg) PO DAILY HPI f/up holter HS/ stress HPI Details Cody is a 42-year-old male with past medical history anxiety who was being evaluated for chest discomfort and recently underwent a stress echocardiogram and Holter monitor. Today he reports that he does get some sharp pains in his chest at times. He says it a can occur randomly at rest and with activity. He also has shortness of breath which can occur at rest and with activity. He has gone to the ER on several occasions for these feelings and has ruled out for ACS. He tells me he is very anxious about his heart because he had to people close to his age . One was thought to be from a heart attack. He is very anxious that he may at an early age as well. He denies Lightheadedness, presyncope, syncope, PND, orthopnea or edema. At times he feels his heart beating fast when he is anxious. takes his meds as directed. 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 Mother No problems noted. Paternal Aunt Lung cancer Social History Alcohol intake: never Patient Tobacco Use Status: Former Tobacco user Tobacco use type: Cigarette Years Smoked: 23 Years e-Cigarette/Vaping Use: Currently Using Current occupational status: disabled Review of Systems Const All systems reviewed & are unremarkable except as noted in HPI and below Card Reports chest pain, Denies chest pain at rest, Denies chest pain with activity, Reports rapid heart rate, Denies pedal edema, Denies edema, Denies leg edema, Denies lightheadedness, Denies palpitations, Denies dyspnea, Denies dyspnea on exertion and Denies orthopnea Resp Denies cough, Denies dyspnea and Denies dyspnea on exertion GI Denies hematochezia and Denies change in stool character Musc Denies abnormal gait, Denies limited range of motion, Denies muscle cramps, Denies muscle weakness, Denies numbness, Denies radiating pain into limb, Denies stiffness and Denies tingling Neuro Denies abnormal gait, Denies numbness and Denies tingling Endo Denies palpitations Physical Exam Vital Signs: Last Vital Signs Pulse 74 07/05/23 15:39 BP 120/72 07/05/23 15:39 BMI result Body Mass Index 27.8 Const General: cooperative, healthy appearing, comfortable and no acute distress Orientation/consciousness: patient oriented x3 Neck Neck: Yes normal visual inspection Resp Effort & Inspection: normal respiratory effort Auscultation: clear to auscultation bilaterally, no crackles, no rales, no rhonchi and no wheezes Cardio Jugular venous distension: no JVD Rate: regular rate Rhythm: regular rhythm Heart sounds: S1 normal heart sound present, S2 normal heart sound present, no murmurs and no rubs Neuro General: patient oriented x3 Extrem General: Yes normal to inspection, No no pedal edema and No calf tenderness Psych Appearance: grossly normal Mental Status: mental status grossly normal Speech and movement: Normal speech and movement present Assessment & Plan Assessment & Plan (1) SOB (shortness of breath): Code(s): R06.02 - Shortness of breath Plan: Shortness of breath and atypical sounding chest discomfort at rest and with activity. low cardiac risk profile. Several ER visits in last year for these symptoms. He has ruled out for ACS on each occasion. Last ER visit was 05/22/2023. EKG showed sinus bradycardia, no acute ST or T-wave abnormalities, rate 57. Troponin less than 2.7 x 2. He did undergo an exercise stress echo on 05/21/2023 where he exercise 9 minutes and 45 seconds and did not have angina, no EKG changes and no echo evidence of ischemia. an echocardiogram had been done on 02/18/2022 which was normal, EF 60-65%. Test results reviewed with him. Offered reassurance that his discomfort is noncardiac in nature. He describes being anxious over his health and heart following the of 2 of his friends. Suggested he further discuss this with his PCP and obtain counseling if necessary. Signs and symptoms of true angina reviewed with him. cardiology follow-up as needed. (2) Heart palpitations: Code(s): R00.2 - Palpitations Plan: Report of heart palpitations like his heart is beating fast. Holter monitor done on 04/27/2023 for 4 days 10 hours showed sinus rhythm, average heart rate 71, symptoms correlated with sinus rhythm. His Holter had been ordered for 14 days however he developed a skin irritation from the monitor. pulse is regular on examination today. Symptomatic elevated heart rate may be related to anxiety. pulse is normal range today. (3) Anxiety: Code(s): F41.9 - Anxiety disorder, unspecified Coding Level of Care Code Est Pt Level 3 (82829) Diagnoses SOB (shortness of breath) R06.02 Heart palpitations R00.2 Anxiety F41.9 Time Spent (min) 26
[2023-07-05 15:39] VITALS: BP 120/72; PULSE 74; BMI 27.8
== END 2023-07-05 16:16 | disposition home or self-care (01) ==
PROVIDERS: PCP Internal Medicine; Visit Provider Nurse Practitioner Family
DX: R06.02 Shortness of breath (principal); R00.2 Palpitations; F41.9 Anxiety disorder, unspecified
CPT/HCPCS: 99213

== ENCOUNTER → 2023-07-05 15:36 | Outpatient (BNVA) | payer OTHER, SELFPAY | PROVIDERS: PCP Internal Medicine; Visit Provider Nurse Practitioner Family | DX: R06.02 Shortness of breath (principal); R00.2 Palpitations; F41.9 Anxiety disorder, unspecified | CPT/HCPCS: 99212 ==

== ENCOUNTER 2023-07-09 10:35 | Outpatient (REF) | payer OTHER, SELFPAY ==
[2023-07-09 13:08] LABS: MANUAL DIFF FLAG NO
[2023-07-09 13:28] LABS: Basophils Absolute Auto 0.1 X10*3/uL (0.0-0.2); Basophils Percent Auto 1.3 % (0-2); Eosinophils Absolute Auto 0.2 X10*3/uL (0.0-0.4); Hematocrit 42.2 % (42.0-52.0); Hemoglobin 14.2 g/dl (14.0-18.0); Imm Gran Abs Auto 0.01 X10*3/uL (0.00-0.03); Imm Gran Pct Auto 0.2 % (0.0-0.4); Lymphocytes Percent Auto 42.3 % (20-40); Mean Corpuscular HGB Conc 33.6 g/dl (31.0-36.0); Mean Corpuscular Volume 86.1 fL (80.0-98.0); Mean Platelet Volume 10.1 fL (9.4-12.4); Monocytes Absolute Auto 0.3 X10*3/uL (0.1-1.2); Monocytes Percent Auto 7.1 % (2-11); Neutrophils Percent Auto 44.1 % (45-73); Platelet Count 209 X10*3/uL (160-400); Red Cell Distribution Width 11.9 % (11.0-16.0); White Blood Count 4.6 X10*3/uL (4.8-10.8)
[2023-07-09 13:56] LABS: Alanine Aminotransferase 66 U/L (0-40); Albumin Level 4.2 g/dL (3.5-5.0); Alkaline Phosphatase 63 U/L (39-117); Anion Gap 11 (12-20); Aspartate Amino Transferase 34 U/L (5-37); Bilirubin Total 0.5 mg/dL (0.0-1.0); Blood Urea Nitrogen 14 mg/dL (9-16); C Reactive Protein < 0.10 mg/dL (< or = 0.50); Calcium 9.6 mg/dL (8.4-10.2); Carbon Dioxide 31 mmol/L (22-29); Chloride 105 mmol/L (96-108); Estimated Glomerular Filt Rate > 60; Glucose Random 135 mg/dL (60-115); Potassium 4.5 mmol/L (3.3-5.1); Sodium 142 mmol/L (135-145); Total Protein 7.5 g/dL (6.5-8.0)
== END 2023-07-09 10:36 | disposition home or self-care (01) ==
LOC: HO.HHCL 10:35
PROVIDERS: Visit Provider Family Medicine
DX: R10.12 Left upper quadrant pain (principal); R06.02 Shortness of breath; J31.0 Chronic rhinitis; J32.9 Chronic sinusitis, unspecified; J34.2 Deviated nasal septum; U09.9 Post COVID-19 condition, unspecified; Z79.899 Other long term (current) drug therapy
CPT/HCPCS: 36415; 80053; 85025; 86140; 99212

== ENCOUNTER 2023-07-09 13:49 | Outpatient (AMB) | payer OTHER, SELFPAY ==
[2023-07-09 13:54] VITALS: PULSE 57; O2SAT 97; BMI 27.8
--- NOTE | 2023-07-09 13:54 | A.OFFVIS_ITS ---
Intake Vital Signs 07/09/23 13:54 Height 5 ft 6 in Weight 172 lb 6.424 oz BMI 27.8 Pulse 57 Pulse Source Pulse Oximeter Pulse Oximetry (%) 97 Oxygen Delivery Method Room Air Intake Visit Reasons: Dyspnea [employer] Producer Required: No Allergies shellfish Allergy (Unknown, Uncoded 07/09/23 13:57) rash HPI HPI Comments History of Present Illness Details The patient is a 42-year-old gentleman previously healthy who apparently was in her usual state health until back in September when he has developed COVID. The COVID infection was not very severe. Subsequently after that he has had some odd sensations in his substernal area and chest area. Feels like he has episodic shortness of breath with cough and palpitations. he has been evaluated multiple times in the ER. He did have a CT scan of the chest of 1 point in the beginning April of this year. Ruled out pulmonary emboli. The patient did have just a small amount of emphysema but otherwise no other significant findings noted. His blood work all has been pretty reassuring as well. He did have a cardiac workup including a stress test and an echo without any significant abnormalities. Yet his symptoms are severe enough for him to go to the ER for medical advice because he feels like he is going . he was given a short-acting beta agonist at 1 point but it only resulting worsening palpitations and tremulousness so therefore he stop it. 07/09/2023 the patient is here for a pulmonary follow-up visit. Since we last spoke he is had episodes of shortness of breath. Usually worse when he is laying down. Symptoms he feels stressed phonated. He went back to the ER back in May of this year. X-ray EKGs were reassuring. we did review his PFTs without any evidence of obstruction. Although he continues to be symptomatic. he was prescribed Symbicort. Although he does not use it regularly. Therefore, will have him undergo a methacholine challenge in order to see if there is any evidence of hyper reactive airways. if that is the case then will make the argument for additional respiratory inhaler therapy. [facility] Medical History Scrotal pain Rhinosinusitis Deviated nasal bone [id number] syndrome COVID-19 Anxiety Surgical History History of cornea transplant Family History Father No problems noted. Mother No problems noted. Paternal Aunt Lung cancer Social History Alcohol intake: never Patient Tobacco Use Status: Former Tobacco user Tobacco use type: Cigarette Years Smoked: 23 Years e-Cigarette/Vaping Use: Currently Using Current occupational status: disabled Review of Systems Const Denies fever(s) Eyes Denies loss of vision ENT Denies dizziness, Denies hearing loss, Reports nasal congestion, Reports nasal discharge, Reports nasal obstruction and Reports sinus pressure Card Reports chest pain, Denies claudication, Denies leg edema, Denies li ghtheadedness, Reports palpitations, Reports dyspnea, Reports dyspnea on exertion, Denies orthopnea and Denies other (Loss of consciousness) Resp Denies excessive phlegm production, Reports dyspnea and Reports dyspnea on exertion GI Denies abdominal pain, Denies hematochezia, Denies change in bowel habits, Denies nausea and Denies vomiting Denies dysuria and Denies urinary frequency Musc Reports myalgias, Denies arthralgias, Denies muscle weakness and Denies numbness Skin/Breast Denies nail changes and Denies rash Neuro Denies Abnormal speech present, Denies dizziness, Denies loss of vision, Denies memory loss and Denies numbness Psych Reports anxiety, Denies depression and Denies memory loss Endo Reports palpitations Thor/Lymph Denies easy bruising and Denies other (Anemia) Physical Exam Vital Signs: Last Vital Signs Pulse 57 07/09/23 13:54 Pulse Ox 97 07/09/23 13:54 Oxygen Delivery Method Room Air 07/09/23 13:54 BMI result Body Mass Index 27.8 Const General: comfortable and no acute distress Orientation/consciousness: patient oriented x3 HEENT Other: Unremarkable Head: Yes normal to inspection Neck Neck: Yes normal visual inspection Chest Chest palpation & inspection: normal inspection of the chest Resp Auscultation: clear to auscultation bilaterally Cardio Palpation: normal PMI Heart sounds: S1 normal heart sound present, S2 normal heart sound present, no gallops, no murmurs and no rubs GI Palpation (GI): Soft to palpation Back/Spine/Pelvis Other: unremarkable Skin General skin exam: no rashes or lesions noted Neuro General: patient oriented x3 Speech: No Abnormal speech present Extrem General: Yes normal to inspection Psych Mental Status: mental status grossly normal Assessment & Plan Assessment & Plan (1) SOB (shortness of breath): Code(s): R06.02 - Shortness of breath (2) 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
== END 2023-07-09 14:28 | disposition home or self-care (01) ==
PROVIDERS: PCP Internal Medicine; Visit Provider Hospitalist
DX: R06.02 Shortness of breath (principal); U09.9 Post COVID-19 condition, unspecified; J31.0 Chronic rhinitis; J32.9 Chronic sinusitis, unspecified; J34.2 Deviated nasal septum
CPT/HCPCS: 99214

== ENCOUNTER 2023-07-09 14:32 | Outpatient (REF) | payer OTHER, SELFPAY ==
--- NOTE | ~2023-07-09 | XR_ITS ---
EXAMINATION: XR ABDOMEN COMPLETE CLINICAL INDICATION: Left upper quadrant pain for a few days. No injury. COMPARISON: Ultrasound abdomen 01/20/2023. CT abdomen and pelvis 04/19/2022. Chest radiograph 05/12/2023. TECHNIQUE: 4 views of the abdomen. FINDINGS: Nonobstructive bowel gas pattern. Moderate amount of stool in the colon. Visualization of the bilateral kidneys is limited due to overlying bowel. No definitive renal calculi identified, although visualization limited due to overlying bowel. Degenerative changes in the lumbar spine. Tiny pelvic calcifications are likely vascular. Small 4 mm nodular density overlying the lateral aspect of the partially imaged left lung base. Dedicated views of the chest recommended for further evaluation. XR/XR abdomen min 2V IMPRESSION: 1. Small 4 mm nodular density overlying the lateral aspect of the partially imaged left lung base. Dedicated views of the chest recommended for further evaluation. 2. Nonobstructive bowel gas pattern. Moderate amount of stool in the colon.
== END 2023-07-09 14:33 | disposition home or self-care (01) ==
LOC: HO.XRAY 14:32
PROVIDERS: PCP Internal Medicine; Visit Provider Family Medicine
DX: R10.12 Left upper quadrant pain (principal)
CPT/HCPCS: 74019

== ENCOUNTER 2023-07-14 13:54 | Outpatient (AMB) | payer OTHER, SELFPAY ==
--- NOTE | 2023-07-14 13:59 | A.OFFVIS_ITS ---
Intake Vital Signs 07/14/23 14:02 Height 5 ft 6 in Weight 168 lb BMI 27.1 BP 112/67 Blood Pressure Location Lt brachial Position Sitting Pulse 62 Intake Visit Reasons: 3 month follow up Intake Note: Patient follow up for aid reflex and lab results. Patient cc: abdominal pain, constipation with some blood. Denies any other GI issues. Rn Resource Nurse Required: No Accompanied by: Self / Same As Patient Allergies shellfish Allergy (Unknown, Uncoded 07/09/23 13:57) rash Medication List - Last Reconciled 07/14/23 by Roro Meek PA-C acetaminophen (Tylenol Extra Strength) 500 mg PO Q6H PRN budesonide-formoterol 160-4.5 mcg/actuation (Symbicort) 2 puffs inhalation BID 30 days buprenorphine-naloxone 8-2 mg 10 mg sublingual DAILY bupropion HCl 150 mg PO QAM cyclobenzaprine 10 mg PO TID PRN diclofenac sodium 1% (Voltaren Arthritis Pain) 4 grams topical QID 30 days docusate sodium 0 mg PO duloxetine 60 mg PO DAILY fluticasone propionate 50 mcg/actuation (Flonase Allergy Relief) 1 spray intranasal BID gabapentin 100 mg PO BEDTIME hydroxyzine HCl 50 mg PO BEDTIME ibuprofen 600 mg PO Q6H PRN loratadine 10 mg PO DAILY mirtazapine 15 mg PO BEDTIME naloxone 4 mg/actuation 0 sprays intranasal naproxen 500 mg PO BID PRN 10 days pantoprazole (Protonix) 40 mg PO DAILY pantoprazole 40 mg (2 x 20 mg) PO DAILY sennosides (senna) 17.2 mg PO DAILY HPI HPI Comments 2 History of Present Illness Details A 42 y/o male seen Patricia here for f/u- he has been constipated - colace, not much help- pcp sent miralax-that has been helpful. 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 Mother No problems noted. Paternal Aunt Lung cancer Social History Alcohol intake: never Patient Tobacco Use Status: Former Tobacco user Tobacco use type: Cigarette Years Smoked: 23 Years e-Cigarette/Vaping Use: Currently Using Current occupational status: disabled Review of Systems Const All systems reviewed & are unremarkable except as noted in HPI and below Card Denies chest pain and Denies dyspnea Resp Denies dyspnea GI Denies abdominal pain and Reports constipation (Improved with stool softener and MiraLax) Musc Reports arthralgias Psych Reports anxiety Physical Exam Vital Signs: Last Vital Signs Pulse 62 07/14/23 14:02 BP 112/67 07/14/23 14:02 BMI result Body Mass Index 27.1 Const General: cooperative, healthy appearing, comfortable and no acute distress Orientation/consciousness: patient oriented x3 Limitations: language barrier Eyes Sclerae: sclerae normal Resp Effort & Inspection: normal respiratory effort and able to speak in complete sentences Auscultation: clear to auscultation bilaterally and no wheezes Cardio Rate: regular rate Rhythm: regular rhythm Heart sounds: S1 normal heart sound present and S2 normal heart sound present GI Palpation (GI): Soft to palpation and nontender Auscultation: normal bowel sounds Neuro General: patient oriented x3 Extrem General: Yes full ROM Psych Appearance: grossly normal and well kempt Mental Status: mental status grossly normal Affect: normal affect Attitude: cooperative Thought process: Normal thought process present Thought content: Normal thought content present Results Reviewed Results Reviewed: XR/XR abdomen min 2V IMPRESSION: 1. Small 4 mm nodular density overlying the lateral aspect of the partially imaged left lung base. Dedicated views of the chest recommended for further evaluation. 2. Nonobstructive bowel gas pattern. Moderate amount of stool in the colon. Assessment & Plan Assessment & Plan (1) Transaminitis: Comment: Reviewing labs noted elevated liver enzymes Code(s): R74.01 - Elevation of levels of liver transaminase levels Plan: diego 6 mos Nonfasting to include lipid panel (2) Chronic constipation: Comment: Improved with stool softener MiraLax- increase fiber Code(s): K59.09 - Other constipation Plan: Continue with MiraLax and Colace Maintain high-fiber diet (3) Positive VICKIE (antinuclear antibody): Comment: Saw rheumatology fibromyalgia Code(s): R76.8 - Other specified abnormal immunological findings in serum Plan: Continue to follow plan of care with Rheumatology (4) Fibromyalgia, primary: Code(s): M79.7 - Fibromyalgia Plan Continue plan of care Maintain high-fiber diet MiraLax and Colace Will also give trial to fiber supplement Orders: Orders Comprehensive Met. Panel Today R74.01 - Elevation of levels of liver transaminase levels Lipid Panel Today K76.0 - Fatty (change of) liver, not elsewhere classified, R74.01 - Elevation of levels of liver transaminase levels Medications: New calcium polycarbophil (Fiber Laxative (calcium polycarbophil)) 1,250 mg (2 x 625 mg) PO DAILY 60 tabs 3RF 30 days Patient Instructions: Pleasant 42-year-old Gent, Continue plan of care Maintain high-fiber diet MiraLax and Colace Will also give trial to fiber supplement Encouraged to call with any questions or concerns Will follow back in 6 months to update liver enzymes He is agreeable to the plan Coding Level of Care Code Est Pt Level 3 (42197) Diagnoses Transaminitis R74.01 Chronic constipation K59.09 Positive VICKIE (antinuclear antibody) R76.8 Fibromyalgia, primary M79.7 Time Spent (min) 30
[2023-07-14 14:02] VITALS: BP 112/67; PULSE 62; BMI 27.1
== END 2023-07-14 14:28 | disposition home or self-care (01) ==
PROVIDERS: PCP Internal Medicine; Visit Provider Physician Assistant
DX: R74.01 Elevation of levels of liver transaminase levels (principal); K59.09 Other constipation; R76.8 Other specified abnormal immunological findings in serum; M79.7 Fibromyalgia
CPT/HCPCS: 99213

== ENCOUNTER → 2023-07-14 13:54 | Outpatient (BNVA) | payer OTHER, SELFPAY | PROVIDERS: PCP Internal Medicine; Visit Provider Physician Assistant | DX: K59.09 Other constipation (principal); R74.01 Elevation of levels of liver transaminase levels; R76.8 Other specified abnormal immunological findings in serum; M79.7 Fibromyalgia | CPT/HCPCS: 99212 ==

== ENCOUNTER 2023-07-21 09:48 | Outpatient (AMB) | payer OTHER, SELFPAY ==
[2023-07-21 10:22] VITALS: PULSE 68; O2SAT 96; BMI 28.3
--- NOTE | 2023-07-21 10:22 | MHC.OFFVIS ---
Intake Vital Signs 07/21/23 10:22 Height 5 ft 6 in Weight 79.5 kg BMI 28.3 Pulse 68 Pulse Oximetry (%) 96 Oxygen Delivery Method Room Air Intake Visit Reasons: Spirometry Testing Allergies shellfish Allergy (Unknown, Uncoded 07/21/23 10:23) rash Medication List - Last Reconciled 07/21/23 by Judy Newman LPN acetaminophen (Tylenol Extra Strength) 500 mg PO Q6H PRN budesonide-formoterol 160-4.5 mcg/actuation (Symbicort) 2 puffs inhalation BID 30 days buprenorphine-naloxone 8-2 mg 10 mg sublingual DAILY bupropion HCl 150 mg PO QAM calcium polycarbophil (Fiber Laxative (calcium polycarbophil)) 1,250 mg (2 x 625 mg) PO DAILY 30 days cyclobenzaprine 10 mg PO TID PRN diclofenac sodium 1% (Voltaren Arthritis Pain) 4 grams topical QID 30 days docusate sodium 0 mg PO duloxetine 60 mg PO DAILY fluticasone propionate 50 mcg/actuation (Flonase Allergy Relief) 1 spray intranasal BID gabapentin 100 mg PO BEDTIME hydroxyzine HCl 50 mg PO BEDTIME ibuprofen 600 mg PO Q6H PRN loratadine 10 mg PO DAILY mirtazapine 15 mg PO BEDTIME naloxone 4 mg/actuation 0 sprays intranasal naproxen 500 mg PO BID PRN 10 days pantoprazole (Protonix) 40 mg PO DAILY pantoprazole 40 mg (2 x 20 mg) PO DAILY sennosides (senna) 17.2 mg PO DAILY PFSH Medical History Scrotal pain Rhinosinusitis Deviated nasal bone [id number] syndrome COVID-19 Anxiety Surgical History History of cornea transplant Family History Father No problems noted. Mother No problems noted. Paternal Aunt Lung cancer Social History Alcohol intake: never Patient Tobacco Use Status: Former Tobacco user Tobacco use type: Cigarette Years Smoked: 23 Years e-Cigarette/Vaping Use: Currently Using Current occupational status: disabled Office Procedures Spirometry Testing Spirometry Comments: Spirometry done in the office, Dr. Miller has the results results scanned to his chart. 16838- Spirometry Assessment & Plan Assessment & Plan (1) Cough: Code(s): R05.9 - Cough, unspecified Orders: Orders AMB Spirometry Testing Today R05.9 - Cough, unspecified Coding Level of Care Code Established Pt Est Pt Level 1 (16694) Patient Type Established Diagnoses Cough R05.9 CPT Codes Spirometry - CPT: 83407- Spirometry ([id number]) Comment NURSE VISIT ONLY
== END 2023-07-21 10:09 | disposition home or self-care (01) ==
PROVIDERS: PCP Internal Medicine; Visit Provider Hospitalist
DX: R05.9 Cough, unspecified (principal)
CPT/HCPCS: 94010

== ENCOUNTER → 2023-07-21 09:48 | Outpatient (BNVA) | payer OTHER, SELFPAY | PROVIDERS: PCP Internal Medicine; Visit Provider Hospitalist | DX: R05.9 Cough, unspecified (principal) | CPT/HCPCS: 94010; 99211 ==

== ENCOUNTER 2023-08-04 09:50 | Outpatient (REF) | payer OTHER, SELFPAY | END 2023-08-04 09:51 | disposition home or self-care (01) | LOC: HO.RESP 09:50 | PROVIDERS: PCP Internal Medicine; Visit Provider Hospitalist | DX: Z13.89 Encounter for screening for other disorder (principal) ==

== ENCOUNTER 2023-08-13 20:13 | Emergency (ER) | payer OTHER, SELFPAY ==
--- NOTE | ~2023-08-13 | XR_ITS ---
EXAMINATION: XR ABDOMEN KUB CLINICAL INDICATION: Pain. COMPARISON: Abdominal radiograph 07/09/2023. TECHNIQUE: AP view of the abdomen. FINDINGS: Nonobstructive bowel gas pattern. Moderate colonic stool burden. Pelvic phleboliths. Small right os acetabuli. No acute osseous findings. Imaged portions of the lung bases are clear. XR/XR KUB IMPRESSION: Nonobstructive bowel gas pattern. Moderate colonic stool burden.
[2023-08-13 20:37] VITALS: BP 138/76; PULSE 70; RESP 18; TEMP 37.1; O2SAT 97; BMI 27.4
--- NOTE | 2023-08-13 20:37 | ED.GENADULT ---
HPI - General Adult General Chief complaint: Abdominal Pain Stated complaint: pelvic pain Time Seen by Provider: 08/13/23 22:40 Source: patient Mode of arrival: ambulatory Limitations: no limitations History of Present Illness HPI narrative: 42 yo male with PMH of GERD, elevated LFTs, DELFINO, dysuria, heart palpitations, post-COVID syndrome, anemia, anxiety here with c/o constipation and lower abdominal pain has tried miralax since starting suboxone. He also reports burning urination but just had negative STI panel at clinic and has no concerns for STI. MD complaint: constipation, dysuria Onset (ago): week(s) (2) Location: abdomen and genitals Radiation: non-radiation Severity: mild Quality: burning and dull Pain Consistency: intermittent Relieving factors: none Exacerbating factors: other (urination) Associated symptoms: other (constipation) Treatments prior to arrival: none Related Data Home Medications Medication Instructions Recorded Confirmed bupropion HCl 150 mg 24 hr tablet, 150 mg PO QAM 06/04/20 07/21/23 extended release naloxone 4 mg/actuation nasal spray 0 spray intranasal 04/22/22 07/21/23 buprenorphine 8 mg-naloxone 2 mg 10 mg sublingual DAILY 06/12/22 07/21/23 sublingual film duloxetine 60 mg capsule,delayed 60 mg PO DAILY 01/04/23 07/21/23 release docusate sodium 100 mg capsule 0 mg PO 03/10/23 07/21/23 mirtazapine 15 mg tablet 15 mg PO BEDTIME 03/10/23 07/21/23 cyclobenzaprine 10 mg tablet 10 mg PO TID PRN muscle spasm 04/07/23 07/21/23 loratadine 10 mg tablet 10 mg PO DAILY 07/09/23 07/21/23 sennosides 8.6 mg tablet (senna) 17.2 mg PO DAILY 07/14/23 07/21/23 Previous Rx's Medication Instructions Recorded hydroxyzine HCl 50 mg tablet 50 mg PO BEDTIME #14 tabs 04/06/22 fluticasone propionate 50 1 spray intranasal BID #16 grams 05/30/22 mcg/actuation nasal spray,suspension (Flonase Allergy Relief) gabapentin 100 mg capsule 100 mg PO BEDTIME #10 caps 08/14/22 ibuprofen 600 mg tablet 600 mg PO Q6H PRN pain #30 tabs 11/03/22 diclofenac sodium 1 % topical gel 4 g topical QID 30 days #100 grams 12/17/22 (Voltaren Arthritis Pain) acetaminophen 500 mg tablet 500 mg PO Q6H PRN fever or pain 03/08/23 (Tylenol Extra Strength) #14 tabs naproxen 500 mg tablet 500 mg PO BID PRN pain 10 days #20 03/08/23 tabs pantoprazole 40 mg tablet,delayed 40 mg PO DAILY #20 tabs 05/09/23 release (Protonix) budesonide-formoterol HFA 160 2 puff inhalation BID 30 days 05/31/23 mcg-4.5 mcg/actuation aerosol #10.2 grams inhaler (Symbicort) pantoprazole 20 mg tablet,delayed 40 mg (2 x 20 mg) PO DAILY #180 05/31/23 release tabs calcium polycarbophil 625 mg 1,250 mg (2 x 625 mg) PO DAILY 30 07/14/23 tablet (Fiber Laxative (calcium days #60 tabs polycarbophil)) lactulose 20 gram/30 mL oral 20 g (30 mL) PO DAILY PRN 08/14/23 solution constipation #1,200 mL Allergies Allergy/AdvReac Type Severity Reaction Status Date / Time shellfish Allergy Unknown rash Uncoded 08/13/23 20:37 Review of Systems Review of Systems: Constitutional : No Fever, No Chills, No Fatigue ENT/Mouth : No sore throat, No Rhinorrhea Eyes: No Eye Pain, No Swelling, No Redness Cardiovascular : No Chest Pain, No SOB, No Dyspnea on Exertion Respiratory : No Cough, No Sputum Gastrointestinal : No Nausea, No Vomiting, No Diarrhea, pos abdominal Pain, pos constipation Genitourinary : pos Dysuria, No Urinary Frequency, No Hematuria, Musculoskeletal : No joint pain, No Myalgias, No Joint Swelling Skin : No Skin Lesions, No rash Neuro : No Weakness, No Numbness, No Dizziness, no Headache Psych : No Anxiety/Panic, No Depression Heme/Lymph: No Bruising, No Bleeding,No Lymphadenopathy Endocrine : No Polyuria, No Polydipsia All other systems reviewed and are negative PMFSH Past Medical History Attestation statement: The following information was validated with the patient. Source: old records reviewed Medical History Scrotal pain Rhinosinusitis Deviated nasal bone [id number] syndrome COVID-19 Anxiety Surgical History History of cornea transplant Family History Family History Father No problems noted. Mother No problems noted. Paternal Aunt Lung cancer Social History Social History Alcohol intake: never Patient Tobacco Use Status: Former Tobacco user Tobacco use type: Cigarette Years Smoked: 23 Years e-Cigarette/Vaping Use: Currently Using Advance Directives: No Advance Directives Information Provided: No Current occupational status: disabled Physical Exam ED Vital Signs: Vital Signs - 24 hr 08/13/23 20:37 Temperature 98.7 F Pulse Rate 70 Respiratory Rate 18 Blood Pressure 138/76 Pulse Oximetry 97 Oxygen Delivery Method Room Air BMI result Body Mass Index 27.4 Appearance: Alert. Oriented X3. No acute distress. Eyes: Pupils equal, round and reactive to light. ENT: Pharynx normal. Neck: Normal inspection. Neck supple. CVS: Normal heart rate and rhythm. Pulses normal. Respiratory: No respiratory distress. Breath sounds normal. Abdomen: Soft and mild lower abdominal ttp no rebound or guarding Skin: Skin warm and dry. Normal skin color. Normal skin turgor. Extremities: No lower extremity edema. No calf ttp Neuro: Oriented X 3. No motor deficit. No sensory deficit. Course Course Course Narrative: RME- 42-year-old male presents for evaluation of lower abdominal/pelvic pain. Reports discomfort for the last couple of weeks. He states for last 2-3 days he has had localizing pain to the right lower quadrant. Plan for labs, UA, KUB. Further workup as indicated by primary provider Medical Decision Making Medical Decision Making MDM Narrative: 42 yo male with PMH of GERD, elevated LFTs, DELFINO, dysuria, heart palpitations, post-COVID syndrome, anemia, anxiety here with c/o dysuria and constipation x 2 weeks he is not toxic appearing. He just had negative STI panel. He denies rash or concerns for STI. He has had constipation since going on suboxone and is only taking miralax. at this time labs, KUB, UA. Will likely start on lactulose. He has seen urology for this in the past. Differential Diagnosis Differential Diagnoses: The differential diagnosis associated with the presentation includes dysuria, constipation, UTI Admission/Observation Consideration of admission/observation: Escalation of care including admission/observation considered labs around baseline, chronic issue with dysuria, patient has waited and is asking to leave Lab Data MDM Lab Attestation statement: I reviewed the patient's lab results. 08/13/23 20:46 08/13/23 20:46 Labs: Lab Results 08/13/23 Range/Units 20:46 WBC 4.5 L (4.8-10.8) X10*3/uL RBC 4.75 (4.60-5.80) X10*6/uL Hgb 13.8 L (14.0-18.0) g/dl Hct 40.0 L (42.0-52.0) % MCV 84.2 (80.0-98.0) fL MCH 29.1 (27.0-33.0) pg MCHC 34.5 (31.0-36.0) g/dl RDW 11.8 (11.0-16.0) % Plt Count 213 (160-400) X10*3/uL MPV 9.4 (9.4-12.4) fL Immature Gran % (Auto) 0.2 (0.0-0.4) % Neut % (Auto) 47.0 (45-73) % Lymph % (Auto) 40.3 H (20-40) % Grundy % (Auto) 7.6 (2-11) % Eos % (Auto) 3.6 (0-4) % Baso % (Auto) 1.3 (0-2) % Lymph # (Auto) 1.8 (1.2-4.9) X10*3/uL Grundy # (Auto) 0.3 (0.1-1.2) X10*3/uL Eos # (Auto) 0.2 (0.0-0.4) X10*3/uL Baso # (Auto) 0.1 (0.0-0.2) X10*3/uL Abs Immat Gran (auto) 0.01 (0.00-0.03) X10*3/uL Absolute Neuts (auto) 2.1 (2.0-8.3) x10*3/uL Absolute Nucleated RBC 0.000 (0.0-0.012) X10*3/uL Nucleated RBC % (auto) 0.0 (0.0-0.2) /100WBC Sodium 142 (135-145) mmol/L Potassium 3.8 (3.3-5.1) mmol/L Chloride 108 (96-108) mmol/L Carbon Dioxide 26 (22-29) mmol/L Anion Gap 12 (12-20) BUN 8 L (9-16) mg/dL Creatinine 0.84 (0.5-1.4) mg/dL Estim Creat Clear Calc 112.0 Estimated GFR > 60 Random Glucose 112 (60-115) mg/dL Calcium 9.2 (8.4-10.2) mg/dL Total Bilirubin 0.7 (0.0-1.0) mg/dL AST 46 H (5-37) U/L ALT 107 H (0-40) U/L Alkaline Phosphatase 65 (39-117) U/L Total Protein 7.4 (6.5-8.0) g/dL Albumin 4.1 (3.5-5.0) g/dL Lipase 23 (8-78) U/L Independent Interpretation I performed an independent interpretation of an: Plain X-Ray (constipation) Radiology Impression Discussion of test interpretation with radiology: I have reviewed the radiologist's reading. Independent Historian Clinical information obtained from an independent historian. History obtained from or confirmed by: Spouse External Record Review External record reviewed: Inpatient record Prescription Management I considered prescription management with: Other Discharge Plan Discharge Clinical Impression: Dysuria Constipation Qualifiers: Constipation type: drug induced constipation Qualified Code(s): K59.03 - Drug induced constipation Patient Disposition: Home, Self-Care Instructions: Constipation (ED), Dysuria (ED) Additional Instructions: will call you with lab abnormality of your urine. please follow up with your doctor regarding this. Please monitor your liver tests with your doctor as well and repeat blood work next week. return for fevers, vomiting, increased pain or any other concerns. Prescriptions: New lactulose 20 gram/30 mL solution 20 g PO DAILY PRN (Reason: constipation) Qty: 1200 0RF No Action pantoprazole 20 mg tablet,delayed release (DR/EC) 40 mg PO DAILY Qty: 180 2RF budesonide-formoterol [Symbicort] 160-4.5 mcg/actuation HFA aerosol inhaler 2 puff inhalation BID 30 Days Qty: 10.2 11RF ibuprofen 600 mg tablet 600 mg PO Q6H PRN (Reason: pain) Qty: 30 0RF hydroxyzine HCl 50 mg tablet 50 mg PO BEDTIME Qty: 14 0RF fluticasone propionate [Flonase Allergy Relief] 50 mcg/actuation spray,suspension 1 spray intranasal BID Qty: 16 0RF Rx Instructions: administer into each nostril gabapentin 100 mg capsule 100 mg PO BEDTIME Qty: 10 0RF acetaminophen [Tylenol Extra Strength] 500 mg tablet 500 mg PO Q6H PRN (Reason: fever or pain) Qty: 14 0RF naproxen 500 mg tablet 500 mg PO BID PRN (Reason: pain) 10 Days Qty: 20 0RF pantoprazole [Protonix] 40 mg tablet,delayed release (DR/EC) 40 mg PO DAILY Qty: 20 0RF bupropion HCl 150 mg tablet extended release 24 hr 150 mg PO QAM naloxone 4 mg/actuation spray,non-aerosol 0 spray intranasal buprenorphine-naloxone 8-2 mg film 10 mg sublingual DAILY diclofenac sodium [Voltaren Arthritis Pain] 1 % gel 4 g topical QID 30 Days Qty: 100 0RF Rx Instructions: apply to single knee, ankle, foot; for foot includes sole/toes/top of foot loratadine 10 mg tablet 10 mg PO DAILY duloxetine 60 mg capsule,delayed release(DR/EC) 60 mg PO DAILY docusate sodium 100 mg capsule 0 mg PO mirtazapine 15 mg tablet 15 mg PO BEDTIME cyclobenzaprine 10 mg tablet 10 mg PO TID PRN (Reason: muscle spasm) sennosides [senna] 8.6 mg tablet 17.2 mg PO DAILY calcium polycarbophil [Fiber Laxative (ca polycarbo)] 625 mg tablet 1,250 mg PO DAILY 30 Days Qty: 60 3RF
[2023-08-13 20:51] LABS: MANUAL DIFF FLAG NO
[2023-08-13 20:52] LABS: Basophils Absolute Auto 0.1 X10*3/uL (0.0-0.2); Basophils Percent Auto 1.3 % (0-2); Eosinophils Absolute Auto 0.2 X10*3/uL (0.0-0.4); Eosinophils Percent Auto 3.6 % (0-4); Hemoglobin 13.8 g/dl (14.0-18.0); Imm Gran Abs Auto 0.01 X10*3/uL (0.00-0.03); Imm Gran Pct Auto 0.2 % (0.0-0.4); Lymphocytes Absolute Auto 1.8 X10*3/uL (1.2-4.9); Lymphocytes Percent Auto 40.3 % (20-40); Mean Corpuscular HGB Conc 34.5 g/dl (31.0-36.0); Mean Corpuscular Hemoglobin 29.1 pg (27.0-33.0); Mean Corpuscular Volume 84.2 fL (80.0-98.0); Mean Platelet Volume 9.4 fL (9.4-12.4); Monocytes Absolute Auto 0.3 X10*3/uL (0.1-1.2); Monocytes Percent Auto 7.6 % (2-11); Neutrophils Absolute Auto 2.1 x10*3/uL (2.0-8.3); Platelet Count 213 X10*3/uL (160-400); Red Blood Count 4.75 X10*6/uL (4.60-5.80); Red Cell Distribution Width 11.8 % (11.0-16.0); White Blood Count 4.5 X10*3/uL (4.8-10.8)
[2023-08-13 21:08] LABS: Alanine Aminotransferase 107 U/L (0-40); Albumin Level 4.1 g/dL (3.5-5.0); Alkaline Phosphatase 65 U/L (39-117); Anion Gap 12 (12-20); Aspartate Amino Transferase 46 U/L (5-37); Bilirubin Total 0.7 mg/dL (0.0-1.0); Blood Urea Nitrogen 8 mg/dL (9-16); Calcium 9.2 mg/dL (8.4-10.2); Carbon Dioxide 26 mmol/L (22-29); Chloride 108 mmol/L (96-108); Estimated Glomerular Filt Rate > 60; Glucose Random 112 mg/dL (60-115); Lipase 23 U/L (8-78); Potassium 3.8 mmol/L (3.3-5.1); Sodium 142 mmol/L (135-145); Total Protein 7.4 g/dL (6.5-8.0)
[2023-08-14 00:39] LABS: Appearance Urine Clear; Color Urine Yellow; Glucose Urine UA Negative (Negative); Leukocyte Esterase Urine Negative (Negative); Nitrite Urine Negative (Negative); Specific Gravity - Urine 1.015 (1.005-1.025); Urine Blood Negative (Negative); Urine Ketones Negative (Negative); Urine Protein Negative (Neg-Trace)
[2023-08-14 00:44] LABS: Bacteria Urine None Seen (None Seen); Hyaline Casts Urine 0-2 /LPF (0-2); RBC Urine 0-2 /HPF (0-2); Squamous Epithelial Cell Urine 0-2 /HPF (0-2); WBC Urine 0-5 /HPF (0-5)
== END 2023-08-14 01:18 | disposition home or self-care (01) ==
PROVIDERS: Physician Assistant; Emergency Provider Emergency Medicine; PCP Internal Medicine
DX: R30.0 Dysuria (principal); K59.03 Drug induced constipation; K59.00 Constipation, unspecified; Z79.899 Other long term (current) drug therapy; Z87.891 Personal history of nicotine dependence
CPT/HCPCS: 36415; 74018; 80053; 81001; 83690; 85025; 99283

== ENCOUNTER 2023-08-16 17:10 | Emergency (ER) | payer OTHER, SELFPAY ==
--- NOTE | ~2023-08-16 | US_ITS ---
EXAMINATION: US VENOUS ULTRASOUND WITH DOPPLER LOWER EXTREMITY, BILATERAL CLINICAL INFORMATION: Calf pain COMPARISON: None available. TECHNIQUE: Ultrasound of the deep veins is performed from the hip to the calf with compression sonography and color and pulse Doppler assessment. Spectral analysis with color-flow imaging is performed. FINDINGS: RIGHT: There is normal venous compression and respiratory variation and augmented flow. The visualized common femoral vein, superficial femoral vein, profunda femoral vein, popliteal vein, and the trifurcation region shows no evidence of deep venous thrombosis. There is no significant popliteal fossa cyst. LEFT: There is normal venous compression and respiratory variation and augmented flow. The visualized common femoral vein, superficial femoral vein, profunda femoral vein, popliteal vein, and the trifurcation region shows no evidence of deep venous thrombosis. There is no significant popliteal fossa cyst. If the patient's symptoms persist, followup ultrasound in 5 days 7 days might be of value to exclude proximal propagation from a non-visualized calf vein. US/US venous duplex LE BI IMPRESSION: No DVT demonstrated in the bilateral lower extremity.
[2023-08-16 17:43] VITALS: BP 137/110; PULSE 65; RESP 18; TEMP 36.6; O2SAT 98; BMI 27.4
--- NOTE | 2023-08-16 17:45 | ED.GENADULT ---
HPI - General Adult General Chief complaint: Urogenital-Male Stated complaint: seen sat. private pain down to legs Time Seen by Provider: 08/16/23 20:21 Source: patient, RN notes reviewed and old records reviewed Mode of arrival: ambulatory History of Present Illness HPI narrative: 42-year-old male presents for evaluation of pelvic pain. Patient reports he was seen here 3 days ago for similar. He was diagnosed with constipation Patient reports that he was prescribed lactulose and has been taking the medication with good bowel movements He reports he has burning pain to both sides of his genitals, medial legs and the ?top of my penis. ? He denies any burning with urination His pain is worse with standing Patient has seen Urology several times for this. He reports that this has been going on for 1-2 years Patient denies back pain Related Data Home Medications Medication Instructions Recorded Confirmed bupropion HCl 150 mg 24 hr tablet, 150 mg PO QAM 06/04/20 07/21/23 extended release naloxone 4 mg/actuation nasal spray 0 spray intranasal 04/22/22 07/21/23 buprenorphine 8 mg-naloxone 2 mg 10 mg sublingual DAILY 06/12/22 07/21/23 sublingual film duloxetine 60 mg capsule,delayed 60 mg PO DAILY 01/04/23 07/21/23 release docusate sodium 100 mg capsule 0 mg PO 03/10/23 07/21/23 mirtazapine 15 mg tablet 15 mg PO BEDTIME 03/10/23 07/21/23 cyclobenzaprine 10 mg tablet 10 mg PO TID PRN muscle spasm 04/07/23 07/21/23 loratadine 10 mg tablet 10 mg PO DAILY 07/09/23 07/21/23 sennosides 8.6 mg tablet (senna) 17.2 mg PO DAILY 07/14/23 07/21/23 Previous Rx's Medication Instructions Recorded hydroxyzine HCl 50 mg tablet 50 mg PO BEDTIME #14 tabs 04/06/22 fluticasone propionate 50 1 spray intranasal BID #16 grams 05/30/22 mcg/actuation nasal spray,suspension (Flonase Allergy Relief) gabapentin 100 mg capsule 100 mg PO BEDTIME #10 caps 08/14/22 ibuprofen 600 mg tablet 600 mg PO Q6H PRN pain #30 tabs 11/03/22 diclofenac sodium 1 % topical gel 4 g topical QID 30 days #100 grams 12/17/22 (Voltaren Arthritis Pain) acetaminophen 500 mg tablet 500 mg PO Q6H PRN fever or pain 03/08/23 (Tylenol Extra Strength) #14 tabs naproxen 500 mg tablet 500 mg PO BID PRN pain 10 days #20 03/08/23 tabs pantoprazole 40 mg tablet,delayed 40 mg PO DAILY #20 tabs 05/09/23 release (Protonix) budesonide-formoterol HFA 160 2 puff inhalation BID 30 days 05/31/23 mcg-4.5 mcg/actuation aerosol #10.2 grams inhaler (Symbicort) pantoprazole 20 mg tablet,delayed 40 mg (2 x 20 mg) PO DAILY #180 05/31/23 release tabs calcium polycarbophil 625 mg 1,250 mg (2 x 625 mg) PO DAILY 30 07/14/23 tablet (Fiber Laxative (calcium days #60 tabs polycarbophil)) lactulose 20 gram/30 mL oral 20 g (30 mL) PO DAILY PRN 08/14/23 solution constipation #1,200 mL ciprofloxacin HCl 750 mg tablet 750 mg PO BID #14 tabs 08/16/23 Allergies Allergy/AdvReac Type Severity Reaction Status Date / Time shellfish Allergy Unknown rash Uncoded 08/16/23 17:47 Review of Systems Constitutional: Constitutional: Denies chills and Denies fever(s) ENT: Denies sore throat Cardiovascular: Cardiovascular: Denies chest pain and Denies dyspnea Respiratory: Respiratory: Denies cough and Denies dyspnea Gastrointestinal: Gastrointestinal: Reports abdominal pain, Denies nausea and Denies vomiting Genitourinary: Genitourinary: Denies difficulty urinating, Denies genital lesions, Reports genital pain, Denies dysuria, Denies flank pain, Denies testicular mass, Denies testicular pain and Denies urinary incontinence Musculoskeletal: Musculoskeletal: Denies back pain Integumentary/Breasts: Skin/Breast: Denies rash PMFSH Past Medical History Medical History Scrotal pain Rhinosinusitis 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 Mother No problems noted. Paternal Aunt Lung cancer Social History Social History Alcohol intake: never Patient Tobacco Use Status: Former Tobacco user Tobacco use type: Cigarette Years Smoked: 23 Years e-Cigarette/Vaping Use: Currently Using Advance Directives: No Advance Directives Information Provided: No Current occupational status: disabled Physical Exam ED Vital Signs: Vital Signs - 24 hr 08/16/23 17:43 Temperature 97.9 F Pulse Rate 65 Respiratory Rate 18 Blood Pressure 137/110 H Pulse Oximetry 98 Oxygen Delivery Method Room Air BMI result Body Mass Index 27.4 Const General: healthy appearing, comfortable, no acute distress, alert and awake Nutritional Appearance: well nourished Orientation/consciousness: patient oriented x3 HENMT Head: Yes normocephalic and Yes atraumatic Eyes Eyelids: Yes eyelids normal Conjunctivae: conjunctivae normal Sclerae: sclerae normal Corneas: corneas normal Pupils: Equal, round and reactive pupils present EOM: EOMs intact bilaterally Neck Neck: Yes full ROM Resp Effort & Inspection: normal respiratory effort, able to speak in complete sentences and not labored GI Inspection: No distended Palpation (GI): Soft to palpation, not firm, nontender, no guarding and not rigid Rectal Exam - Male: Yes visual inspection normal, Yes normal sphincter tone and Yes prostate normal Other: Uncircumcised male phallus. No rashes, lesions to the glans of the penis or penile shaft. No testicular edema, no testicular masses or tenderness. Male General Exam: No Genital lesions present Penis: normal penis, uncircumcised, no ecchymosis, not edematous, not erythematous, no vesicles, no swelling, no ulcerations and No Genital lesions present Meatus: meatus normal Scrotum: scrotum normal Testes: Testes normal and no epidiymal masses Skin General skin exam: elasticity normal Neuro General: patient oriented x3 Cranial nerves: Yes Equal, round and reactive pupils present and Yes Bilaterally intact EOM present Cognition (Neuro): normal cognition Extrem Other: Moving all extremities well without any obvious deformities Course Course Course Narrative: Patient complains of burning feeling in lower extremities and genital area for several days, as well as some mild intermittent abdominal pain, no nausea or or diarrhea, no chest pain or shortness of breath Patient ambulates easily well-appearing no distress Labs and urine are ordered This rapid medical exam done in triage pending full evaluation by ER provider Reevaluation(s) Reevaluation #1: Patient's workup largely unremarkable. Given the has since been ongoing, I discussed with her the option of treating for breast otitis despite the fact that I have a low suspicion for this. He would like to be treated. He has been Augmentin have low suspicion for secondary infections will treat with ciprofloxacin daily for 1 week Time: 21:50 Medical Decision Making Medical Decision Making [facility] Narrative: 42-year-old male presents for evaluation of burning pain to his groin that radiates down to his legs. This has been going on for 2 years. He has no weakness, no neuro deficits, no incontinence. His prostate exam is benign. He does endorse pain to the perineum. His workup is benign. I ordered ultrasounds of his bilateral lower extremities to rule out DVT as reports pain to the calves bilaterally. Risk factors for DVT or PE. Labs are reassuring and baseline. Abdominal exam is benign. Differential Diagnosis Differential Diagnoses: The differential diagnosis associated with the presentation includes Constipation Abdominal pain UTI Cystitis Prostatitis Lab Data [facility] Lab Attestation statement: I reviewed the patient's lab results. No leukocytosis. Mild anemia consistent with baseline. Mild transaminitis consistent with baseline. No electrolyte abnormalities 08/16/23 18:19 08/16/23 18:19 Labs: Lab Results 08/16/23 Range/Units 18:19 WBC 4.8 (4.8-10.8) X10*3/uL RBC 4.87 (4.60-5.80) X10*6/uL Hgb 14.3 (14.0-18.0) g/dl Hct 41.4 L (42.0-52.0) % MCV 85.0 (80.0-98.0) fL MCH 29.4 (27.0-33.0) pg MCHC 34.5 (31.0-36.0) g/dl RDW 11.9 (11.0-16.0) % Plt Count 211 (160-400) X10*3/uL MPV 9.4 (9.4-12.4) fL Immature Gran % (Auto) 0.2 (0.0-0.4) % Neut % (Auto) 51.7 (45-73) % Lymph % (Auto) 38.2 (20-40) % [place] % (Auto) 6.4 (2-11) % Eos % (Auto) 2.1 (0-4) % Baso % (Auto) 1.4 (0-2) % Lymph # (Auto) 1.9 (1.2-4.9) X10*3/uL [place] # (Auto) 0.3 (0.1-1.2) X10*3/uL Eos # (Auto) 0.1 (0.0-0.4) X10*3/uL Baso # (Auto) 0.1 (0.0-0.2) X10*3/uL Abs Immat Gran (auto) 0.01 (0.00-0.03) X10*3/uL Absolute Neuts (auto) 2.5 (2.0-8.3) x10*3/uL Absolute Nucleated RBC 0.000 (0.0-0.012) X10*3/uL Nucleated RBC % (auto) 0.0 (0.0-0.2) /100WBC Sodium 143 (135-145) mmol/L Potassium 3.9 (3.3-5.1) mmol/L Chloride 106 (96-108) mmol/L Carbon Dioxide 29 (22-29) mmol/L Anion Gap 12 (12-20) BUN 6 L (9-16) mg/dL Creatinine 0.87 (0.5-1.4) mg/dL Estim Creat Clear Calc 108.1 Estimated GFR > 60 Random Glucose 122 H (60-115) mg/dL Calcium 9.6 (8.4-10.2) mg/dL Total Bilirubin 0.8 (0.0-1.0) mg/dL Direct Bilirubin 0.2 (0.0-0.5) mg/dL AST 42 H (5-37) U/L ALT 89 H (0-40) U/L Alkaline Phosphatase 62 (39-117) U/L Total Protein 7.8 (6.5-8.0) g/dL Albumin 4.4 (3.5-5.0) g/dL Lipase 17 (8-78) U/L Radiology Impression Discussion of test interpretation with radiology: I have reviewed the radiologist's reading. (Ultrasound negative for DVT) Tests considered The following testing was considered but not selected: Considered CT scan the abdomen pelvis over the patient's physical exam is reassuring and labs are reassuring, less likely a surgical abdomen. This was deferred at this time. Discharge Plan Discharge Clinical Impression: Male pelvic pain Patient Disposition: Home, Self-Care Instructions: Pelvic Pain in Men (ED) Additional Instructions: Your workup in the emergency from today was reassuring Follow-up with your primary doctor Taking ciprofloxacin twice daily for the next week to treat for prostatitis You should not be very active while on this medication as it can cause tendon injury Return for new or worsening symptoms Prescriptions: New ciprofloxacin HCl 750 mg tablet 750 mg PO BID Qty: 14 0RF No Action pantoprazole 20 mg tablet,delayed release (DR/EC) 40 mg PO DAILY Qty: 180 2RF budesonide-formoterol [Symbicort] 160-4.5 mcg/actuation HFA aerosol inhaler 2 puff inhalation BID 30 Days Qty: 10.2 11RF ibuprofen 600 mg tablet 600 mg PO Q6H PRN (Reason: pain) Qty: 30 0RF hydroxyzine HCl 50 mg tablet 50 mg PO BEDTIME Qty: 14 0RF fluticasone propionate [Flonase Allergy Relief] 50 mcg/actuation spray,suspension 1 spray intranasal BID Qty: 16 0RF Rx Instructions: administer into each nostril gabapentin 100 mg capsule 100 mg PO BEDTIME Qty: 10 0RF lactulose 20 gram/30 mL solution 20 g PO DAILY PRN (Reason: constipation) Qty: 1200 0RF acetaminophen [Tylenol Extra Strength] 500 mg tablet 500 mg PO Q6H PRN (Reason: fever or pain) Qty: 14 0RF naproxen 500 mg tablet 500 mg PO BID PRN (Reason: pain) 10 Days Qty: 20 0RF pantoprazole [Protonix] 40 mg tablet,delayed release (DR/EC) 40 mg PO DAILY Qty: 20 0RF bupropion HCl 150 mg tablet extended release 24 hr 150 mg PO QAM naloxone 4 mg/actuation spray,non-aerosol 0 spray intranasal buprenorphine-naloxone 8-2 mg film 10 mg sublingual DAILY diclofenac sodium [Voltaren Arthritis Pain] 1 % gel 4 g topical QID 30 Days Qty: 100 0RF Rx Instructions: apply to single knee, ankle, foot; for foot includes sole/toes/top of foot loratadine 10 mg tablet 10 mg PO DAILY duloxetine 60 mg capsule,delayed release(DR/EC) 60 mg PO DAILY docusate sodium 100 mg capsule 0 mg PO mirtazapine 15 mg tablet 15 mg PO BEDTIME cyclobenzaprine 10 mg tablet 10 mg PO TID PRN (Reason: muscle spasm) sennosides [senna] 8.6 mg tablet 17.2 mg PO DAILY calcium polycarbophil [Fiber Laxative (ca polycarbo)] 625 mg tablet 1,250 mg PO DAILY 30 Days Qty: 60 3RF
[2023-08-16 18:24] LABS: MANUAL DIFF FLAG NO
[2023-08-16 18:30] LABS: Basophils Absolute Auto 0.1 X10*3/uL (0.0-0.2); Basophils Percent Auto 1.4 % (0-2); Eosinophils Absolute Auto 0.1 X10*3/uL (0.0-0.4); Eosinophils Percent Auto 2.1 % (0-4); Hematocrit 41.4 % (42.0-52.0); Hemoglobin 14.3 g/dl (14.0-18.0); Imm Gran Abs Auto 0.01 X10*3/uL (0.00-0.03); Imm Gran Pct Auto 0.2 % (0.0-0.4); Lymphocytes Absolute Auto 1.9 X10*3/uL (1.2-4.9); Lymphocytes Percent Auto 38.2 % (20-40); Mean Corpuscular HGB Conc 34.5 g/dl (31.0-36.0); Mean Corpuscular Hemoglobin 29.4 pg (27.0-33.0); Mean Platelet Volume 9.4 fL (9.4-12.4); Monocytes Absolute Auto 0.3 X10*3/uL (0.1-1.2); Monocytes Percent Auto 6.4 % (2-11); Neutrophils Absolute Auto 2.5 x10*3/uL (2.0-8.3); Neutrophils Percent Auto 51.7 % (45-73); Platelet Count 211 X10*3/uL (160-400); Red Blood Count 4.87 X10*6/uL (4.60-5.80); Red Cell Distribution Width 11.9 % (11.0-16.0); White Blood Count 4.8 X10*3/uL (4.8-10.8)
[2023-08-16 18:40] LABS: Alanine Aminotransferase 89 U/L (0-40); Albumin Level 4.4 g/dL (3.5-5.0); Alkaline Phosphatase 62 U/L (39-117); Anion Gap 12 (12-20); Aspartate Amino Transferase 42 U/L (5-37); Bilirubin Direct 0.2 mg/dL (0.0-0.5); Bilirubin Total 0.8 mg/dL (0.0-1.0); Blood Urea Nitrogen 6 mg/dL (9-16); Calcium 9.6 mg/dL (8.4-10.2); Carbon Dioxide 29 mmol/L (22-29); Chloride 106 mmol/L (96-108); Creatinine Clr Calc Pharmacy 108.1; Estimated Glomerular Filt Rate > 60; Glucose Random 122 mg/dL (60-115); Lipase 17 U/L (8-78); Potassium 3.9 mmol/L (3.3-5.1); Sodium 143 mmol/L (135-145); Total Protein 7.8 g/dL (6.5-8.0)
[2023-08-16 21:55] VITALS: BP 138/90; PULSE 56; RESP 18; O2SAT 99
[2023-08-17 05:05] LABS: CT PCR NOT DETECTED (Not Detect.); NG PCR NOT DETECTED (Not Detect.)
== END 2023-08-16 22:19 | disposition home or self-care (01) ==
PROVIDERS: Physician Assistant Medical; Emergency Provider Emergency Medicine; PCP Internal Medicine
DX: R10.2 Pelvic and perineal pain (principal); M79.605 Pain in left leg; M79.604 Pain in right leg
CPT/HCPCS: 0353U; 36415; 80048; 80076; 83690; 85025; 93970; 99284

== ENCOUNTER 2023-08-23 19:25 | Emergency (ER) | payer OTHER, SELFPAY ==
--- NOTE | ~2023-08-23 | CT_ITS ---
EXAMINATION: CT ABDOMEN AND PELVIS WITHOUT AND WITH CONTRAST [CT GI BLEEDING STUDY] CLINICAL INFORMATION: Lower abdominal pain and bright red blood per rectum. COMPARISON: None available. TECHNIQUE: Noncontrast CT of the abdomen and pelvis is performed. Subsequently, after the administration of 80 mL Omnipaque 350 contrast, imaging was performed during the angiographic and delayed phases.? Sagittal and coronal reformatted images were obtained on the technologist's workstation for both the precontrast and postcontrast phases. This CT examination was performed using dose optimization techniques as appropriate, variously including the following: *Automated exposure control *Adjustment of mA and/or kV according to patient size (this includes techniques or standardized protocols for targeted exams where dose is matched to indication/reason for exam; i.e. extremities or head) *Use of iterative reconstruction technique DLP: 1200 mGy-cm FINDINGS: LUNG BASES: The visualized lung bases are unremarkable. LIVER, GALLBLADDER, AND BILIARY TREE: Liver is normal in size, contour and morphology. Diffuse hepatic steatosis. No intra or extrahepatic biliary dilatation. The gallbladder is unremarkable with no evidence of radiopaque gallstones, gallbladder wall thickening, or obvious pericholecystic inflammatory changes. PANCREAS: Unremarkable. SPLEEN: Unremarkable. ADRENAL GLANDS: Unremarkable. KIDNEYS AND URETERS: The kidneys are normal in size, shape, and attenuation. No hydronephrosis, hydroureter, or calculi seen. No perinephric stranding. BLADDER: Unremarkable. GASTROINTESTINAL TRACT: No source of active GI bleeding is identified. Internal hemorrhoids are evident in the low rectum. Left colonic diverticulosis without evidence of diverticulitis. Stomach and small bowel unremarkable. Normal appendix. ABDOMINAL WALL: No significant hernia is appreciated. LYMPH NODES: Normal. VASCULAR: Unremarkable. PELVIC VISCERA: Unremarkable. OSSEUS STRUCTURES: No acute or suspicious osseous abnormalities. CT/CT gi bleed abd pel wo/w IVcon IMPRESSION: * No source of active GI bleeding is identified. * Internal hemorrhoids are evident in the low rectum. This may be the source of the patient's bleeding, although none is identified at the time of this exam. * Left colonic diverticulosis without evidence of diverticulitis. * Diffuse hepatic steatosis.
--- NOTE | 2023-08-23 20:22 | ED.GENADULT ---
HPI - General Adult General Chief complaint: Abdominal Pain Stated complaint: abd pain, rectal bleeding x2 days Time Seen by Provider: 08/23/23 23:37 Source: patient Mode of arrival: ambulatory Limitations: no limitations History of Present Illness HPI narrative: 42 yo male with PMH of fibromyalgia, anxiety, anemia, GERD, DELFINO, palpitations, chronic penile pain/pelvic pain, here with c/o starting cipro today for chronic penile pain that was Rx to him - still hasn't seen urology he notes he has had 3 separate brb per rectum episodes on stool, toilet and toilet paper since yesterday with mild lower abdominal pain. Unsure if it is hemorrhoids. Not on thinners. Has not had this this bad before. He has no other symptoms, not on thinners. MD complaint: GI bleed Onset (ago): day(s) (1) Location: abdomen Radiation: non-radiation Severity: mild Quality: aching Pain Consistency: intermittent Relieving factors: none Exacerbating factors: other (bowel movement) Associated symptoms: other (GI bleed) Treatments prior to arrival: none Related Data Home Medications Medication Instructions Recorded Confirmed bupropion HCl 150 mg 24 hr tablet, 150 mg PO QAM 06/04/20 07/21/23 extended release naloxone 4 mg/actuation nasal spray 0 spray intranasal 04/22/22 07/21/23 buprenorphine 8 mg-naloxone 2 mg 10 mg sublingual DAILY 06/12/22 07/21/23 sublingual film duloxetine 60 mg capsule,delayed 60 mg PO DAILY 01/04/23 07/21/23 release docusate sodium 100 mg capsule 0 mg PO 03/10/23 07/21/23 mirtazapine 15 mg tablet 15 mg PO BEDTIME 03/10/23 07/21/23 cyclobenzaprine 10 mg tablet 10 mg PO TID PRN muscle spasm 04/07/23 07/21/23 loratadine 10 mg tablet 10 mg PO DAILY 07/09/23 07/21/23 sennosides 8.6 mg tablet (senna) 17.2 mg PO DAILY 07/14/23 07/21/23 Previous Rx's Medication Instructions Recorded hydroxyzine HCl 50 mg tablet 50 mg PO BEDTIME #14 tabs 04/06/22 fluticasone propionate 50 1 spray intranasal BID #16 grams 05/30/22 mcg/actuation nasal spray,suspension (Flonase Allergy Relief) gabapentin 100 mg capsule 100 mg PO BEDTIME #10 caps 08/14/22 ibuprofen 600 mg tablet 600 mg PO Q6H PRN pain #30 tabs 11/03/22 diclofenac sodium 1 % topical gel 4 g topical QID 30 days #100 grams 12/17/22 (Voltaren Arthritis Pain) acetaminophen 500 mg tablet 500 mg PO Q6H PRN fever or pain 03/08/23 (Tylenol Extra Strength) #14 tabs naproxen 500 mg tablet 500 mg PO BID PRN pain 10 days #20 03/08/23 tabs pantoprazole 40 mg tablet,delayed 40 mg PO DAILY #20 tabs 05/09/23 release (Protonix) budesonide-formoterol HFA 160 2 puff inhalation BID 30 days 05/31/23 mcg-4.5 mcg/actuation aerosol #10.2 grams inhaler (Symbicort) pantoprazole 20 mg tablet,delayed 40 mg (2 x 20 mg) PO DAILY #180 05/31/23 release tabs calcium polycarbophil 625 mg 1,250 mg (2 x 625 mg) PO DAILY 30 07/14/23 tablet (Fiber Laxative (calcium days #60 tabs polycarbophil)) lactulose 20 gram/30 mL oral 20 g (30 mL) PO DAILY PRN 08/14/23 solution constipation #1,200 mL ciprofloxacin HCl 750 mg tablet 750 mg PO BID #14 tabs 08/16/23 Allergies Allergy/AdvReac Type Severity Reaction Status Date / Time shellfish Allergy Unknown rash Uncoded 08/16/23 17:47 Review of Systems Review of Systems: Constitutional : No Weight loss, No Fever, No Chills ENT/Mouth : No sore throat, No Rhinorrhea Eyes: No Swelling, No Redness Cardiovascular : No Chest Pain, No SOB, NoEdema Respiratory : No Cough, No Sputum, No Wheezing Gastrointestinal : no Nausea, no Vomiting, no Diarrhea, positive abdominal Pain, pos Hematochezia, No Melena Genitourinary : No Dysuria, No Urinary Frequency, No Hematuria, No Urgency Musculoskeletal : No joint pain, No Myalgias, No Joint Swelling Skin : No Skin Lesions, No rash Neuro : No Weakness, No Numbness, No Dizziness, No Headache Psych : No Anxiety/Panic, No Depression All other systems reviewed and are negative. 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 Mother No problems noted. Paternal Aunt Lung cancer Social History Social History Alcohol intake: never Patient Tobacco Use Status: Former Tobacco user Tobacco use type: Cigarette Years Smoked: 23 Years e-Cigarette/Vaping Use: Currently Using Advance Directives: No Advance Directives Information Provided: No Current occupational status: disabled Physical Exam ED Vital Signs: Vital Signs - 24 hr 08/23/23 20:25 08/24/23 00:00 08/24/23 02:00 Temperature 97.6 F 98.2 F 98.0 F Pulse Rate 62 74 74 Respiratory Rate 20 16 16 Blood Pressure 128/56 L 127/76 128/64 Pulse Oximetry 97 97 98 Oxygen Delivery Method Room Air Room Air Room Air BMI result Body Mass Index 27.6 Appearance: Alert. Oriented X3. No acute distress. Eyes: R cornea opacified, L pupils ERRL ENT: Pharynx normal. Neck: Normal inspection. Neck supple. CVS: Normal heart rate and rhythm. Pulses normal. Respiratory: No respiratory distress. Breath sounds normal. Abdomen: Soft and mild LLQ ttp no rebound or guarding Rectal: very small non bleeding ext hemorrhoid Skin: Skin warm and dry. Normal skin color. Normal skin turgor. Extremities: No lower extremity edema. No calf ttp Neuro: Oriented X 3. No motor deficit. No sensory deficit. Course Course Course Narrative: This is an RME: Additional HPI, ROS, PE not included below will be deferred to primary provider. This is a [id number]-male presenting to the ER with complaints of abdominal pain and rectal bleeding x 2 days. patient was seen here last week due to pelvic pain and was discharged on ciprofloxacin which he did not take until today. He states that he noticed blood in his bowel movement today. Plan: Labs, further ER evaluation needed. Medications Administered Discontinued Medications Generic Name Dose Route Start Last Admin Trade Name Minor PRN Reason Stop Dose Admin Iohexol 80 ml 08/24/23 01:33 08/24/23 01:34 Iohexol 350 Mg/Ml 100 Ml Infus..Btl IV 08/24/23 01:34 80 ml ONCE ONE Administration Medical Decision Making Medical Decision Making MDM Narrative: 42 yo male with PMH of fibromyalgia, anxiety, anemia, GERD, DELFINO, palpitations, chronic penile pain/pelvic pain here now with brb per rectum and lower abdominal pain at this time will need basic labs, CT scan for GI bleed protocol could be diverticulitis, colitis, hemorrhoids Differential Diagnosis Differential Diagnoses: The differential diagnosis associated with the presentation includes diverticulitis, colitis, hemorrhoids Admission/Observation Consideration of admission/observation: Escalation of care including admission/observation considered no further bleeding H/H stable VS stable can be managed at home Lab Data [facility] Lab Attestation statement: I reviewed the patient's lab results. 08/23/23 21:19 08/23/23 21:19 Labs: Lab Results 08/23/23 Range/Units 21:19 WBC 4.9 (4.8-10.8) X10*3/uL RBC 4.57 L (4.60-5.80) X10*6/uL Hgb 13.6 L (14.0-18.0) g/dl Hct 39.0 L (42.0-52.0) % MCV 85.3 (80.0-98.0) fL MCH 29.8 (27.0-33.0) pg MCHC 34.9 (31.0-36.0) g/dl RDW 12.0 (11.0-16.0) % Plt Count 208 (160-400) X10*3/uL MPV 9.5 (9.4-12.4) fL Immature Gran % (Auto) 0.2 (0.0-0.4) % Neut % (Auto) 48.8 (45-73) % Lymph % (Auto) 38.7 (20-40) % [place] % (Auto) 8.0 (2-11) % Eos % (Auto) 2.7 (0-4) % Baso % (Auto) 1.6 (0-2) % Lymph # (Auto) 1.9 (1.2-4.9) X10*3/uL [place] # (Auto) 0.4 (0.1-1.2) X10*3/uL Eos # (Auto) 0.1 (0.0-0.4) X10*3/uL Baso # (Auto) 0.1 (0.0-0.2) X10*3/uL Abs Immat Gran (auto) 0.01 (0.00-0.03) X10*3/uL Absolute Neuts (auto) 2.4 (2.0-8.3) x10*3/uL Absolute Nucleated RBC 0.000 (0.0-0.012) X10*3/uL Nucleated RBC % (auto) 0.0 (0.0-0.2) /100WBC Sodium 146 H (135-145) mmol/L Potassium 4.5 (3.3-5.1) mmol/L Chloride 108 (96-108) mmol/L Carbon Dioxide 31 H (22-29) mmol/L Anion Gap 12 (12-20) BUN 11 (9-16) mg/dL Creatinine 0.89 (0.5-1.4) mg/dL Estim Creat Clear Calc 105.9 Estimated GFR > 60 Random Glucose 113 (60-115) mg/dL Calcium 9.6 (8.4-10.2) mg/dL Total Bilirubin 0.4 (0.0-1.0) mg/dL Direct Bilirubin 0.1 (0.0-0.5) mg/dL AST 65 H (5-37) U/L ALT 129 H (0-40) U/L Alkaline Phosphatase 64 (39-117) U/L Total Protein 7.5 (6.5-8.0) g/dL Albumin 4.2 (3.5-5.0) g/dL Lipase 19 (8-78) U/L Independent Interpretation I performed an independent interpretation of an: CT Scan (no active GI bleeding) Radiology Impression Discussion of test interpretation with radiology: I have reviewed the radiologist's reading. External Record Review External record reviewed: Inpatient record Discharge Plan Discharge Clinical Impression: Bright red rectal bleeding Patient Disposition: Home, Self-Care Instructions: Rectal Bleeding (ED) Additional Instructions: labs stable, based off CT scan suspect internal hemorrhoids are likely cause of bleed - try not to strain or push return for worsening bleeding, pain, weakness, or dizziness. Prescriptions: No Action pantoprazole 20 mg tablet,delayed release (DR/EC) 40 mg PO DAILY Qty: 180 2RF budesonide-formoterol [Symbicort] 160-4.5 mcg/actuation HFA aerosol inhaler 2 puff inhalation BID 30 Days Qty: 10.2 11RF ibuprofen 600 mg tablet 600 mg PO Q6H PRN (Reason: pain) Qty: 30 0RF hydroxyzine HCl 50 mg tablet 50 mg PO BEDTIME Qty: 14 0RF fluticasone propionate [Flonase Allergy Relief] 50 mcg/actuation spray,suspension 1 spray intranasal BID Qty: 16 0RF Rx Instructions: administer into each nostril gabapentin 100 mg capsule 100 mg PO BEDTIME Qty: 10 0RF lactulose 20 gram/30 mL solution 20 g PO DAILY PRN (Reason: constipation) Qty: 1200 0RF ciprofloxacin HCl 750 mg tablet 750 mg PO BID Qty: 14 0RF acetaminophen [Tylenol Extra Strength] 500 mg tablet 500 mg PO Q6H PRN (Reason: fever or pain) Qty: 14 0RF naproxen 500 mg tablet 500 mg PO BID PRN (Reason: pain) 10 Days Qty: 20 0RF pantoprazole [Protonix] 40 mg tablet,delayed release (DR/EC) 40 mg PO DAILY Qty: 20 0RF bupropion HCl 150 mg tablet extended release 24 hr 150 mg PO QAM naloxone 4 mg/actuation spray,non-aerosol 0 spray intranasal buprenorphine-naloxone 8-2 mg film 10 mg sublingual DAILY diclofenac sodium [Voltaren Arthritis Pain] 1 % gel 4 g topical QID 30 Days Qty: 100 0RF Rx Instructions: apply to single knee, ankle, foot; for foot includes sole/toes/top of foot loratadine 10 mg tablet 10 mg PO DAILY duloxetine 60 mg capsule,delayed release(DR/EC) 60 mg PO DAILY docusate sodium 100 mg capsule 0 mg PO mirtazapine 15 mg tablet 15 mg PO BEDTIME cyclobenzaprine 10 mg tablet 10 mg PO TID PRN (Reason: muscle spasm) sennosides [senna] 8.6 mg tablet 17.2 mg PO DAILY calcium polycarbophil [Fiber Laxative (ca polycarbo)] 625 mg tablet 1,250 mg PO DAILY 30 Days Qty: 60 3RF
[2023-08-23 20:25] VITALS: BP 128/56; PULSE 62; RESP 20; TEMP 36.4; O2SAT 97; BMI 27.6
[2023-08-23 21:29] LABS: MANUAL DIFF FLAG NO
[2023-08-23 21:31] LABS: Basophils Absolute Auto 0.1 X10*3/uL (0.0-0.2); Basophils Percent Auto 1.6 % (0-2); Eosinophils Absolute Auto 0.1 X10*3/uL (0.0-0.4); Eosinophils Percent Auto 2.7 % (0-4); Hemoglobin 13.6 g/dl (14.0-18.0); Imm Gran Abs Auto 0.01 X10*3/uL (0.00-0.03); Imm Gran Pct Auto 0.2 % (0.0-0.4); Lymphocytes Absolute Auto 1.9 X10*3/uL (1.2-4.9); Lymphocytes Percent Auto 38.7 % (20-40); Mean Corpuscular HGB Conc 34.9 g/dl (31.0-36.0); Mean Corpuscular Hemoglobin 29.8 pg (27.0-33.0); Mean Corpuscular Volume 85.3 fL (80.0-98.0); Mean Platelet Volume 9.5 fL (9.4-12.4); Monocytes Absolute Auto 0.4 X10*3/uL (0.1-1.2); Neutrophils Absolute Auto 2.4 x10*3/uL (2.0-8.3); Neutrophils Percent Auto 48.8 % (45-73); Platelet Count 208 X10*3/uL (160-400); Red Blood Count 4.57 X10*6/uL (4.60-5.80); White Blood Count 4.9 X10*3/uL (4.8-10.8)
[2023-08-23 21:49] LABS: Alanine Aminotransferase 129 U/L (0-40); Albumin Level 4.2 g/dL (3.5-5.0); Alkaline Phosphatase 64 U/L (39-117); Anion Gap 12 (12-20); Aspartate Amino Transferase 65 U/L (5-37); Bilirubin Direct 0.1 mg/dL (0.0-0.5); Bilirubin Total 0.4 mg/dL (0.0-1.0); Blood Urea Nitrogen 11 mg/dL (9-16); Calcium 9.6 mg/dL (8.4-10.2); Carbon Dioxide 31 mmol/L (22-29); Chloride 108 mmol/L (96-108); Creatinine Clr Calc Pharmacy 105.9; Estimated Glomerular Filt Rate > 60; Glucose Random 113 mg/dL (60-115); Lipase 19 U/L (8-78); Potassium 4.5 mmol/L (3.3-5.1); Sodium 146 mmol/L (135-145); Total Protein 7.5 g/dL (6.5-8.0)
[2023-08-24] VITALS: BP 127/76; PULSE 74; RESP 16; TEMP 36.8; O2SAT 97
[2023-08-24] MEDS: iohexoL 350 MG/ML 100 ML INFUS..BTL 80 ML IV (01:34)
[2023-08-24 02:00] VITALS: BP 128/64; PULSE 74; RESP 16; TEMP 36.7; O2SAT 98
== END 2023-08-24 02:55 | disposition home or self-care (01) ==
PROVIDERS: Physician Assistant Medical; Emergency Provider Emergency Medicine; PCP Internal Medicine
DX: K92.1 Melena (principal); R10.2 Pelvic and perineal pain; Z79.899 Other long term (current) drug therapy; Z87.891 Personal history of nicotine dependence
CPT/HCPCS: 36415; 74178; 80048; 80076; 83690; 85025; 99283; 99284; Q9967

== ENCOUNTER 2023-08-24 13:18 | Outpatient (AMB) | payer OTHER, SELFPAY ==
--- NOTE | 2023-08-24 13:29 | A.OFFVIS_ITS ---
Intake Vital Signs 08/24/23 13:32 Height 5 ft 6 in Weight 171 lb BMI 27.6 BP 101/66 Blood Pressure Location Lt brachial Position Sitting Pulse 69 Intake Visit Reasons: Constipation and Abdominal pain Intake Note: Patient follow up for abdominal pain and constipation. Patient cc: abdominal pain with bloating, constipation with bloody hemorrhoids, acid reflex with burning sensation specially at night time. Denies any other GI issues. Youth Associate Required: No Accompanied by: Self / Same As Patient Allergies shellfish Allergy (Unknown, Uncoded 08/16/23 17:47) rash Medication List - Last Reconciled 08/24/23 by Roro Meek PA-C acetaminophen (Tylenol Extra Strength) 500 mg PO Q6H PRN budesonide-formoterol 160-4.5 mcg/actuation (Symbicort) 2 puffs inhalation BID 30 days buprenorphine-naloxone 8-2 mg 10 mg sublingual DAILY bupropion HCl 150 mg PO QAM calcium polycarbophil (Fiber Laxative (calcium polycarbophil)) 1,250 mg (2 x 625 mg) PO DAILY 30 days ciprofloxacin HCl 750 mg PO BID cyclobenzaprine 10 mg PO TID PRN diclofenac sodium 1% (Voltaren Arthritis Pain) 4 grams topical QID 30 days docusate sodium 0 mg PO duloxetine 60 mg PO DAILY fluticasone propionate 50 mcg/actuation (Flonase Allergy Relief) 1 spray int ranasal BID gabapentin 100 mg PO BEDTIME hydroxyzine HCl 50 mg PO BEDTIME ibuprofen 600 mg PO Q6H PRN lactulose 20 grams (30 mL) PO DAILY PRN loratadine 10 mg PO DAILY mirtazapine 15 mg PO BEDTIME naloxone 4 mg/actuation 0 sprays intranasal naproxen 500 mg PO BID PRN 10 days pantoprazole (Protonix) 40 mg PO DAILY pantoprazole 40 mg (2 x 20 mg) PO DAILY sennosides (senna) 17.2 mg PO DAILY HPI HPI Comments History of Present Illness Details 42-year-old male, NAFLD, follows up in c hronic GI complaints. Is follows up after going to the emergency room Chronic constipation to the ED twice this month with abdominal pain with rectal bleeding - he does not not follow a bowel regimen. He does admit he strains when he has a BM-he is taking Suboxone he said he would like to discontinue with but he is encouraged not to. He had had CT revealing hemorrhoids, diverticulosis-we reviewed full report-ask questions Acid reflux he has been to the ED for symptoms previously He also complains of scrotal pain, anxiety, has worries about his health. 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 Mother No problems noted. Paternal Aunt Lung cancer Social History Alcohol intake: never Patient Tobacco Use Status: Former Tobacco user Tobacco use type: Cigarette Years Smoked: 23 Years e-Cigarette/Vaping Use: Currently Using Current occupational status: disabled Review of Systems Const All systems reviewed & are unremarkable except as noted in HPI and below Card Denies chest pain and Denies dyspnea Resp Denies cough and Denies dyspnea GI Reports hematochezia, Reports constipation, Reports heartburn, Denies nausea and Denies vomiting Denies testicular mass, Reports testicular pain and Denies urinary frequency Psych Reports anxiety Physical Exam Vital Signs: Last Vital Signs Pulse 69 08/24/23 13:32 BP 101/66 08/24/23 13:32 BMI result Body Mass Index 27.6 Const General: no acute distress Orientation/consciousness: patient oriented x3 Resp Effort & Inspection: normal respiratory effort and able to speak in complete sentences Auscultation: clear to auscultation bilaterally, no rales, no rhonchi and no wheezes Cardio Rate: regular rate Rhythm: regular rhythm Heart sounds: S1 normal heart sound present and S2 normal heart sound present GI Palpation (GI): Soft to palpation and nontender Auscultation: normal bowel sounds Neuro General: patient oriented x3 Extrem General: Yes full ROM Psych Speech and movement: Clear speech present Affect: normal affect Attitude: cooperative Thought process: Other thought process findings present (slow to detail) Thought content: Phobia(s) present Results Reviewed Results Reviewed: 08/24/23 CT/CT gi bleed abd pel wo/w IVcon IMPRESSION: * No source of active GI bleeding is identified. * Internal hemorrhoids are evident in the low rectum. This may be the source of the patient's bleeding, although none is identified at the time of this exam. * Left colonic diverticulosis without evidence of diverticulitis. * Diffuse hepatic steatosis Assessment & Plan Assessment & Plan (1) Bright red rectal bleeding: Comment: CT- hemorrhoids-most likely cause declines surg consult Code(s): K62.5 - Hemorrhage of anus and rectum Plan: avoid straining HFD bowel regimen (2) Anxiety: Comment: Follow-up PCP Code(s): F41.9 - Anxiety disorder, unspecified (3) Acid reflux: Comment: May have functional component Reviewed reflux precautions Continue PPI Avoid culprits Code(s): K21.9 - Gastro-esophageal reflux disease without esophagitis Plan: EGD/ colonoscopy- hopefully if negative will reassure- Try to reduce ED visits Encouraged to see pcp as need (4) Chronic constipation: Comment: Consistent bowel regimen stool softener MiraLax- increase fiber Code(s): K59.09 - Other constipation Plan: Bowel regimen (5) Diverticulosis: Comment: Reviewed ER protocol Code(s): K57.90 - Diverticulosis of intestine, part unspecified, without perforation or abscess without bleeding Plan: maintain high-fiber diet Foods to avoid ER protocol (6) Hemorrhoids: Comment: Declined surgical consult Code(s): K64.9 - Unspecified hemorrhoids Plan: Avoid straining (7) Referred by emergency department physician: Comment: Seen in the ED twice this month- Code(s): Z76.89 - Persons encountering health services in other specified circumstances Plan: Reduced ED visit Encourage compliance Plan EGD/ colonoscopy MG prep avoid strain HFD consistent bowel regimen Orders: Orders EGD/Welcome Combo - GI Use Only Today F41.9 - Anxiety disorder, unspecified, K21.9 - Gastro-esophageal reflux disease without esophagitis, K62.5 - Hemorrhage of anus and rectum Medications: New bisacodyl (Dulcolax (bisacodyl)) Day before procedure, prep day Take 4 tablets by mouth upon awakening followed by large glass of water 20 mg (4 x 5 mg) PO ONCE 1 day 4 tabs 0RF colonoscopy prep Z12.11 - Encounter for screening for malignant neoplasm of colon polyethylene glycol 3350 (Miralax) Take as directed by mouth the day before your procedure. 238 grams PO ONCE 1 day PRN 238 grams 0RF laxative effect hydrocortisone 2.5% (Proctosol HC) 1 appl [place] BEDTIME PRN 30 grams 3RF hemorrhoids Patient Instructions: Reviewed CT scan In maintain high-fiber diet, literature given menu choices discussed Avoid straining with hemorrhoids Diverticulosis/diverticulitis er protocol Foods to avoid EGD and colonoscopy Discuss indications, need for escorted due to anesthesia and prep Literature given and reviewed Opportunity for questions Encouraged to call with any further concerns Coding Level of Care Code Est Pt Level 4 (91312) Diagnoses Bright red rectal bleeding K62.5 Anxiety F41.9 Acid reflux K21.9 Chronic constipation K59.09 Diverticulosis K57.90 Hemorrhoids K64.9 Referred by emergency department physician Z76.89 Time Spent (min) 35
[2023-08-24 13:32] VITALS: BP 101/66; PULSE 69; BMI 27.6
== END 2023-08-24 14:47 | disposition home or self-care (01) ==
PROVIDERS: PCP Internal Medicine; Visit Provider Physician Assistant
DX: K62.5 Hemorrhage of anus and rectum (principal); F41.9 Anxiety disorder, unspecified; K21.9 Gastro-esophageal reflux disease without esophagitis; K59.09 Other constipation; K57.90 Diverticulosis of intestine, part unspecified, without perforation or abscess without bleeding; K64.9 Unspecified hemorrhoids; Z76.89 Persons encountering health services in other specified circumstances
CPT/HCPCS: 99214

== ENCOUNTER → 2023-08-24 13:18 | Outpatient (BNVA) | payer OTHER, SELFPAY | PROVIDERS: PCP Internal Medicine; Visit Provider Physician Assistant | DX: K62.5 Hemorrhage of anus and rectum (principal); K21.9 Gastro-esophageal reflux disease without esophagitis; K59.09 Other constipation; K57.90 Diverticulosis of intestine, part unspecified, without perforation or abscess without bleeding; K64.9 Unspecified hemorrhoids; F41.9 Anxiety disorder, unspecified; Z76.89 Persons encountering health services in other specified circumstances | CPT/HCPCS: 99212 ==

== ENCOUNTER 2023-08-25 12:12 | Outpatient (REF) | payer OTHER, SELFPAY ==
[2023-08-25 14:01] LABS: Prostate Specific Antigen 0.54 ng/mL (<0.05-4.0)
== END 2023-08-25 12:13 | disposition home or self-care (01) ==
LOC: HO.HHCL 12:12
PROVIDERS: Visit Provider General Practice
DX: R10.31 Right lower quadrant pain (principal); R10.32 Left lower quadrant pain; Z12.5 Encounter for screening for malignant neoplasm of prostate
CPT/HCPCS: 36415; 84153

== ENCOUNTER 2023-09-03 12:44 | Outpatient (REF) | payer OTHER, SELFPAY | END 2023-09-03 12:45 | disposition home or self-care (01) | LOC: HO.US 12:44 | PROVIDERS: PCP Internal Medicine; Visit Provider General Practice | DX: R10.31 Right lower quadrant pain (principal); R10.32 Left lower quadrant pain; R10.2 Pelvic and perineal pain | CPT/HCPCS: 76857 ==

== ENCOUNTER 2023-09-04 01:59 | Emergency (ER) | payer OTHER, SELFPAY ==
[2023-09-04 02:00] VITALS: BP 135/74; PULSE 69; RESP 18; TEMP 36.8; O2SAT 96; BMI 27.8
== END 2023-09-04 04:30 | disposition left against medical advice (07) ==
PROVIDERS: Emergency Provider Emergency Medicine; PCP Internal Medicine
DX: K62.5 Hemorrhage of anus and rectum (principal)
CPT/HCPCS: 99281

== ENCOUNTER 2023-09-07 15:58 | Emergency (ER) | payer OTHER, SELFPAY ==
[2023-09-07 16:35] VITALS: BP 124/79; PULSE 65; RESP 18; TEMP 37.1; O2SAT 98; BMI 28.1
--- NOTE | 2023-09-07 16:37 | ED_ITS ---
HPI - General Adult General Chief complaint: Upper Respiratory Symptoms Stated complaint: sob, dizzy Related Data Home Medications Medication Instructions Recorded Confirmed bupropion HCl 150 mg 24 hr tablet, 150 mg PO QAM 06/04/20 07/21/23 extended release naloxone 4 mg/actuation nasal spray 0 spray intranasal 04/22/22 07/21/23 buprenorphine 8 mg-naloxone 2 mg 10 mg sublingual DAILY 06/12/22 07/21/23 sublingual film duloxetine 60 mg capsule,delayed 60 mg PO DAILY 01/04/23 07/21/23 release docusate sodium 100 mg capsule 0 mg PO 03/10/23 07/21/23 mirtazapine 15 mg tablet 15 mg PO BEDTIME 03/10/23 07/21/23 cyclobenzaprine 10 mg tablet 10 mg PO TID PRN muscle spasm 04/07/23 07/21/23 loratadine 10 mg tablet 10 mg PO DAILY 07/09/23 07/21/23 sennosides 8.6 mg tablet (senna) 17.2 mg PO DAILY 07/14/23 07/21/23 Previous Rx's Medication Instructions Recorded hydroxyzine HCl 50 mg tablet 50 mg PO BEDTIME #14 tabs 04/06/22 fluticasone propionate 50 1 spray intranasal BID #16 grams 05/30/22 mcg/actuation nasal spray,suspension (Flonase Allergy Relief) gabapentin 100 mg capsule 100 mg PO BEDTIME #10 caps 08/14/22 ibuprofen 600 mg tablet 600 mg PO Q6H PRN pain #30 tabs 11/03/22 diclofenac sodium 1 % topical gel 4 g topical QID 30 days #100 grams 12/17/22 (Voltaren Arthritis Pain) acetaminophen 500 mg tablet 500 mg PO Q6H PRN fever or pain 03/08/23 (Tylenol Extra Strength) #14 tabs naproxen 500 mg tablet 500 mg PO BID PRN pain 10 days #20 03/08/23 tabs pantoprazole 40 mg tablet,delayed 40 mg PO DAILY #20 tabs 05/09/23 release (Protonix) budesonide-formoterol HFA 160 2 puff inhalation BID 30 days 05/31/23 mcg-4.5 mcg/actuation aerosol #10.2 grams inhaler (Symbicort) pantoprazole 20 mg tablet,delayed 40 mg (2 x 20 mg) PO DAILY #180 05/31/23 release tabs calcium polycarbophil 625 mg 1,250 mg (2 x 625 mg) PO DAILY 30 07/14/23 tablet (Fiber Laxative (calcium days #60 tabs polycarbophil)) lactulose 20 gram/30 mL oral 20 g (30 mL) PO DAILY PRN 08/14/23 solution constipation #1,200 mL ciprofloxacin HCl 750 mg tablet 750 mg PO BID #14 tabs 08/16/23 bisacodyl 5 mg tablet,delayed 20 mg (4 x 5 mg) PO ONCE 08/24/23 release (Dulcolax (bisacodyl)) colonoscopy prep 1 day #4 tabs hydrocortisone 2.5 % topical cream 1 appl [place] BEDTIME PRN hemorrhoids 08/24/23 with perineal applicator #30 grams (Proctosol HC) polyethylene glycol 3350 17 238 g PO ONCE PRN laxative effect 08/24/23 gram/dose oral powder (Miralax) 1 day #238 grams Allergies Allergy/AdvReac Type Severity Reaction Status Date / Time shellfish Allergy Unknown rash Uncoded 09/04/23 02:07 [facility] Past Medical History Onset Date is defined in the Problem List Problems that require an onset date and time if occurred within 24 hrs of arrival to the ED Aortic Dissection and Rupture; Neurologic impairment; Cardiopulmonary Arrest; Endotracheal Intubation; Insertion or Replacement of Mechanical Circulatory Assist Device Medical History Scrotal pain Rhinosinusitis Deviated nasal bone [id number] syndrome COVID-19 Anxiety Surgical History History of cornea transplant Family History Family History Father No problems noted. Mother No problems noted. Paternal Aunt Lung cancer Social History Social History Alcohol intake: never Patient Tobacco Use Status: Former Tobacco user Tobacco use type: Cigarette Years Smoked: 23 Years e-Cigarette/Vaping Use: Currently Using Advance Directives: No Advance Directives Information Provided: No Current occupational status: disabled Physical Exam ED Vital Signs: Vital Signs - 24 hr 09/07/23 16:35 Temperature 98.8 F Pulse Rate 65 Respiratory Rate 18 Blood Pressure 124/79 Pulse Oximetry 98 Oxygen Delivery Method Room Air BMI result Body Mass Index 28.1 Course Course Course Narrative: This is an RME: Additional HPI, ROS, PE not included below will be deferred to primary provider. This is a [id number]-bjx-male, with a hx of fibromyalgia, anxiety, anemia, GERD, DELFINO, palpitations, chronic penile pain/pelvic pain, here with c/o shortness of breath and dizziness. Also endorsing heart palpitations. No nausea or vomiting. History of fibromyalgia. Vital signs stable, patient nontoxic appearing plan: labs, EKG, chest x-ray, viral swabs Reevaluation(s) Reevaluation #1: pt left without completing treatment Discharge Plan Discharge Clinical Impression: SOB (shortness of breath) Patient Disposition: Elopement Prescriptions: No Action pantoprazole 20 mg tablet,delayed release (DR/EC) 40 mg PO DAILY Qty: 180 2RF budesonide-formoterol [Symbicort] 160-4.5 mcg/actuation HFA aerosol inhaler 2 puff inhalation BID 30 Days Qty: 10.2 11RF ibuprofen 600 mg tablet 600 mg PO Q6H PRN (Reason: pain) Qty: 30 0RF hydroxyzine HCl 50 mg tablet 50 mg PO BEDTIME Qty: 14 0RF fluticasone propionate [Flonase Allergy Relief] 50 mcg/actuation spray,suspension 1 spray intranasal BID Qty: 16 0RF Rx Instructions: administer into each nostril gabapentin 100 mg capsule 100 mg PO BEDTIME Qty: 10 0RF lactulose 20 gram/30 mL solution 20 g PO DAILY PRN (Reason: constipation) Qty: 1200 0RF ciprofloxacin HCl 750 mg tablet 750 mg PO BID Qty: 14 0RF acetaminophen [Tylenol Extra Strength] 500 mg tablet 500 mg PO Q6H PRN (Reason: fever or pain) Qty: 14 0RF naproxen 500 mg tablet 500 mg PO BID PRN (Reason: pain) 10 Days Qty: 20 0RF pantoprazole [Protonix] 40 mg tablet,delayed release (DR/EC) 40 mg PO DAILY Qty: 20 0RF bupropion HCl 150 mg tablet extended release 24 hr 150 mg PO QAM naloxone 4 mg/actuation spray,non-aerosol 0 spray intranasal buprenorphine-naloxone 8-2 mg film 10 mg sublingual DAILY diclofenac sodium [Voltaren Arthritis Pain] 1 % gel 4 g topical QID 30 Days Qty: 100 0RF Rx Instructions: apply to single knee, ankle, foot; for foot includes sole/toes/top of foot loratadine 10 mg tablet 10 mg PO DAILY bisacodyl [Dulcolax (bisacodyl)] 5 mg tablet,delayed release (DR/EC) 20 mg PO ONCE 1 Days Qty: 4 0RF Rx Instructions: Day before procedure, prep day Take 4 tablets by mouth upon awakening followed by large glass of water polyethylene glycol 3350 [Miralax] 17 gram/dose powder 238 g PO ONCE PRN (Reason: laxative effect) 1 Days Qty: 238 0RF Rx Instructions: Take as directed by mouth the day before your procedure. hydrocortisone [Proctosol HC] 2.5 % cream with perineal applicator 1 appl [place] BEDTIME PRN (Reason: hemorrhoids) Qty: 30 3RF duloxetine 60 mg capsule,delayed release(DR/EC) 60 mg PO DAILY docusate sodium 100 mg capsule 0 mg PO mirtazapine 15 mg tablet 15 mg PO BEDTIME cyclobenzaprine 10 mg tablet 10 mg PO TID PRN (Reason: muscle spasm) sennosides [senna] 8.6 mg tablet 17.2 mg PO DAILY calcium polycarbophil [Fiber Laxative (ca polycarbo)] 625 mg tablet 1,250 mg PO DAILY 30 Days Qty: 60 3RF Discharge Date/Time: 09/07/23 20:55
--- NOTE | 2023-09-07 18:59 | ECG_ITS ---
Test Reason : SOB Blood Pressure : / mmHG Vent. Rate : 051 BPM Atrial Rate : 051 BPM P-R Int : 142 ms QRS Dur : 096 ms QT Int : 438 ms P-R-T Axes : 055 043 015 degrees QTc Int : 403 ms Sinus bradycardia Otherwise normal ECG When compared with ECG of 22-MAY-2023 02:57, No significant change was found Referred By: Emely Landeros Electronically Signed By:Aries Johnson
--- NOTE | 2023-09-07 19:40 | MHC.EDTECH ---
EKG done on patient. Calling patient for labs and no answer 1929.
== END 2023-09-07 20:55 | disposition left against medical advice (07) ==
PROVIDERS: Emergency Provider Emergency Medicine; PCP Internal Medicine
DX: R06.02 Shortness of breath (principal); R00.1 Bradycardia, unspecified; Z87.891 Personal history of nicotine dependence; Z79.899 Other long term (current) drug therapy
CPT/HCPCS: 93005; 99281; 99283

== ENCOUNTER → 2023-09-07 18:59 | Outpatient (BNV) | payer OTHER, SELFPAY | PROVIDERS: Emergency Provider Emergency Medicine; PCP Internal Medicine; Visit Provider Internal Medicine Cardiovascular Disease | DX: R00.1 Bradycardia, unspecified (principal) | CPT/HCPCS: 93010 ==

== ENCOUNTER 2023-09-14 10:04 | Day surgery (SDC) | payer OTHER, SELFPAY ==
[2023-09-10 15:00] VITALS: BMI 27.6
--- NOTE | 2023-09-13 12:33 | HO.ANESPROP2 ---
Documented by User: Reanna Molina NP 09/13/23 12:37 HPI - Anesthesia Eval Consult details Narrative: 43yo M for Upper Endoscopy and Colonoscopy Multiple ED visits for atypical CP/SOB r/t anxiety. Seen by [facility] 05/2023 with test results reviewed, negative. Cardiology f/u prn only. Suboxone daily PMFSH Active Problems Active Problems: All Active Problems (Updated 09/10/23 @ 15:01 by Ángela Cunningham RN) Referred by emergency department physician (Acute) Diverticulosis (Acute) Hemorrhoids (Acute) Pulmonary nodule (Acute) Chronic constipation (Acute) Cough (Acute) Fibromyalgia, primary (Acute) Positive VICKIE (antinuclear antibody) (Acute) Anemia (Acute) Transaminitis (Acute) Acid reflux (Acute) Chest discomfort (Acute) Penile pain (Acute) DELFINO (obstructive sleep apnea) (Acute) Dysuria (Acute) SOB (shortness of breath) (Acute) Heart palpitations (Acute) Anxiety (Acute) Scrotal pain (Acute) Rhinosinusitis (Acute) Deviated nasal bone (Acute) [id number] syndrome (Acute) COVID-19 (Acute) Past Medical History Medical History (Updated 09/14/23 @ 10:42 by Yvonne Delarosa RN) Fibromyalgia GERD (gastroesophageal reflux disease) Scrotal pain Rhinosinusitis Deviated nasal bone [id number] syndrome COVID-19 Anxiety Family History Family History Father No problems noted. Mother No problems noted. Paternal Aunt Lung cancer Surgical History Surgical History History of cornea transplant Social History Social History Alcohol intake: never Patient Tobacco Use Status: Current everyday Tobacco user Tobacco use type: Cigarette Years Smoked: 23 Years e-Cigarette/Vaping Use: Currently Using Use of substances other than those prescribed or required for medical reasons: No Are you DNR?: No Advance Directives: No Advance Directives Information Provided: Yes Current occupational status: disabled Meds Allergies Allergy/AdvReac Type Severity Reaction Status Date / Time shellfish derived Allergy Intermediate Rash Verified 09/14/23 10:42 Home Medications Medication Instructions Recorded Confirmed Last Taken Type bupropion HCl 150 mg 24 hr tablet, 150 mg PO QAM 06/04/20 09/14/23 Unknown History extended release naloxone 4 mg/actuation nasal spray 1 spray intranasal ONCE 04/22/22 09/14/23 Unknown History buprenorphine 8 mg-naloxone 2 mg 10 mg sublingual DAILY 06/12/22 09/14/23 09/14/23 07:00 History sublingual film docusate sodium 100 mg capsule 100 mg PO BID 03/10/23 09/14/23 Unknown History mirtazapine 15 mg tablet 15 mg PO BEDTIME 03/10/23 09/14/23 Unknown History cyclobenzaprine 10 mg tablet 10 mg PO TID PRN muscle spasm 04/07/23 09/14/23 Unknown History Exam Height,Weight and Vital Signs: Height 5 ft 6 in Weight 77.564 kg Pertinent Lab Results Pertinent Lab Results: Laboratory Tests 08/23/23 21:19 WBC 4.9 Hgb 13.6 L Hct 39.0 L Plt Count 208 Sodium 146 H Potassium 4.5 Chloride 108 Carbon Dioxide 31 H BUN 11 Creatinine 0.89 Narrative Narrative: EKG 09/2023 Vent. Rate : 051 BPM Atrial Rate : 051 BPM P-R Int : 142 ms QRS Dur : 096 ms QT Int : 438 ms P-R-T Axes : 055 043 015 degrees QTc Int : 403 ms Sinus bradycardia Otherwise normal ECG When compared with ECG of 22-MAY-2023 02:57, No significant change was found Per cardiac note: exercise stress echo on 05/21/2023 where he exercise 9 minutes and 45 seconds and did not have angina, no EKG changes and no echo evidence of ischemia. echocardiogram had been done on 02/18/2022 which was normal, EF 60-65%. Holter monitor done on 04/27/2023 for 4 days 10 hours showed sinus rhythm, average heart rate 71, symptoms correlated with sinus rhythm. Assessment and Plan Assessment Anesthesia Assessment: Chart Reviewed Documented by User: Troy Gaitan MD 09/14/23 13:49 [facility] Past Medical History Medical History (Updated 09/14/23 @ 10:42 by Yvonne Delarosa RN) Fibromyalgia GERD (gastroesophageal reflux disease) Scrotal pain Rhinosinusitis Deviated nasal bone [id number] syndrome COVID-19 Anxiety Family History Family History Father No problems noted. Mother No problems noted. Paternal Aunt Lung cancer Family history of problems with anesthesia: No Surgical History Surgical History History of cornea transplant History of Problems with Anesthesia: No Social History Social History Alcohol intake: never Patient Tobacco Use Status: Current everyday Tobacco user Tobacco use type: Cigarette Years Smoked: 23 Years e-Cigarette/Vaping Use: Currently Using Use of substances other than those prescribed or required for medical reasons: No Are you DNR?: No Advance Directives: No Advance Directives Information Provided: Yes Current occupational status: disabled Meds Allergies Allergy/AdvReac Type Severity Reaction Status Date / Time shellfish derived Allergy Intermediate Rash Verified 09/14/23 10:42 Home Medications Medication Instructions Recorded Confirmed Last Taken Type bupropion HCl 150 mg 24 hr tablet, 150 mg PO QAM 06/04/20 09/14/23 Unknown History extended release naloxone 4 mg/actuation nasal spray 1 spray intranasal ONCE 04/22/22 09/14/23 Unknown History buprenorphine 8 mg-naloxone 2 mg 10 mg sublingual DAILY 06/12/22 09/14/23 09/14/23 07:00 History sublingual film docusate sodium 100 mg capsule 100 mg PO BID 03/10/23 09/14/23 Unknown History mirtazapine 15 mg tablet 15 mg PO BEDTIME 03/10/23 09/14/23 Unknown History cyclobenzaprine 10 mg tablet 10 mg PO TID PRN muscle spasm 04/07/23 09/14/23 Unknown History Exam Airway Mallampati Class: II TM Dist: >3cm Neck ROM: Full Loose/Missing/Broken Teeth: Yes Assessment and Plan Assessment Anesthesia Assessment: Anesthesia Plan Discussed Final Anesthetic Review Family History of Problems with Anesthesia: No History of Problems with Anesthesia: No NPO: Yes ASA Class: II Final Preanesthetic Review: No Changes in Pt Med Stat, Meds/Allgs Chart Reviewed, Consent Obtained/Reviewed and Anes Risks/Benef Reviewed Patient Risk: Low Procedure Risk: Low Anesthetic Plan Anesthetic Plan: MAC: Disposition: Standard PACU
[2023-09-14 10:37] VITALS: BMI 27.7
[2023-09-14 10:43] VITALS: BP 126/70; PULSE 61; RESP 15; TEMP 36.8; O2SAT 97
[2023-09-14] MEDS: Lactated Ringers 1,000 ML 100 ML IVCONT (10:57)
--- NOTE | 2023-09-14 13:18 | MHC.SHP ---
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 COVID-19 Anxiety) History of Previous Operations: Relevant previous surgery/procedure and date(s) (corneal transplant ) Allergies: Allergies Allergy/AdvReac Type Severity Reaction Status Date / Time shellfish derived Allergy Intermediate Rash Verified 09/14/23 10:42 Review of Systems Sugical H&P ROS: Negative: Constitution, Cardiovascular, Respiratory, Neurological, Psychiatric, Hem-Onc, Allergic/Immunologic, Gastrointestinal, Genitourinary, Musculoskeletal, Integumentary, Endocrine and Eyes/Ears/Nose/Throat Exam Surgical H&P Exam: Normal: HEENT, Normal: Heart, Normal: Lungs, Normal: Extremities, Normal: Abdomen, Normal: Skin and Normal: Neurological Plan Diagnosis/Plan: Unchanged I have reviewed the history and physical and performed a pertinent physical examination on my patient. No changes have occurred unless specified. Time Spent With Patient Time: Total time managing care of this patient today ____ minutes.
--- NOTE | 2023-09-14 13:27 | P.OP_ITS ---
Operative Note Operative Note Date of Service: 09/14/23 Narrative: Operative Information Procedure Description: EGD, Colonoscopy Indication: GERD and rectal bleeding Anesthesia: MAC FLEXIBLE TRANSORAL UPPER GASTROINTESTINAL ENDOSCOPY AND COLONOSCOPY PROCEDURE NOTE UPPER ENDOSCOPY Consent: Indications for the procedure and potential complications of bleeding, perforation, reaction to medications and missed diagnosis were discussed with the patient and informed consent was obtained. Instrument: Olympus GIF H 190 J mid size upper endoscope Monitoring: Vital signs and clinical assessment, continuous EKG monitoring, Pulse oximetry, Carbon Dioxide monitoring and blood pressure monitoring were done throughout the procedure. Procedure: The patient was placed in the left lateral decubitis position and pre-procedure medications were administered and a bite block was placed. The endoscope was inserted into the mouth and advanced under direct vision to the third part of duodenum. A careful inspection was made as the upper endoscope was withdrawn including a retroflexed examination of the proximal stomach; Findings and interventions are described below. Findings: Larynx:normal Esophagus: GE junction at 40 cm, diaphragm hiatus at 40 cm, bogginess at GEJ, bx taken from GEJ and distal esophagus Stomach: Patchy erythema. Biopsies were obtained. Grade 2 flap valve on retroflexed examination of the cardia. Duodenum: Normal bulb and descending duodenum, Intervention: Biopsies as noted above COLONOSCOPY Instrument: Olympus variable stiffness pediatric scope 190L Colonoscopy Monitoring: Vital signs and clinical assessment, continuous EKG monitoring, Pulse oximetry, Carbon Dioxide monitoring and blood pressure monitoring were done throughout the procedure. Colon withdrawal time was 8 minutes. Procedure: The patient was placed in the left lateral decubitis position and pre-procedure medications were administered. After a digital rectal examination of the ano-rectum, the video colonoscope was inserted into the rectum and advanced through the colon to the cecum/TI. The colonoscope was slowly withdrawn in a retrograde panoramic fashion and the colon mucosa was carefully examined including a retroflexed view of the rectum. Findings and interventions are described below. Procedure Difficulty:easy Findings: Terminal Ileum-normal, bx taken Cecum: inflammation and edema, few erosions around the orifice, bx taken Ascending Colon: normal, bx taken Transverse Colon -normal Descending Colon:normal Sigmoid Colon: mild diverticulosis Rectum: Retroflexion with medium sized internal hemorrhoids with red tao, grade I Anorectum - normal Colon preparation: Jackson Bowel Preparation Scale Right colon; 2 Transverse colon: 2 Left colon; 2 (0 = Unprepared colon segment with mucosa not seen due to solid stool that cannot be cleared. 1 = Portion of mucosa of the colon segment seen, but other areas of the colon segment not well seen due to staining, residual stool and/or opaque liquid. 2 = Minor amount of residual staining, small fragments of stool and/or opaque liquid, but mucosa of colon segment seen well. 3 = Entire mucosa of colon segment seen well with no residual staining, small fragments of stool or opaque liquid) Impression and Post Procedure Diagnosis: Endoscopy Findings: gastritis esophagitis Colonoscopy Findings: internal hemorrhoids diverticular disease colitis Plan: Await Pathology results Repeat Colonoscopy in 10 years or earlier if clinically indicated High fiber diet leaflet avoid straining at stool, epsom salts and sitz bath, anusol supps or cream if h pylori pos then treat Above findings were reviewed with the patient and relevant handouts were provided if indicated.
[2023-09-14 13:48] VITALS: BP 120/80; PULSE 56; RESP 16; TEMP 36.1; O2SAT 97
[2023-09-14 14:03] VITALS: BP 125/85; PULSE 54; RESP 14; O2SAT 99
[2023-09-14 14:13] VITALS: BP 124/85; PULSE 60; RESP 14; TEMP 36.2; O2SAT 99
== END 2023-09-14 14:33 | disposition home or self-care (01) ==
PROVIDERS: PCP Internal Medicine; Visit Provider Internal Medicine Gastroenterology
PROC: (CPT 45380; principal; 2023-09-14 13:20)
DX: K62.5 Hemorrhage of anus and rectum (principal); K57.90 Diverticulosis of intestine, part unspecified, without perforation or abscess without bleeding; K64.0 First degree hemorrhoids; K52.9 Noninfective gastroenteritis and colitis, unspecified; K59.09 Other constipation; K21.9 Gastro-esophageal reflux disease without esophagitis; K29.50 Unspecified chronic gastritis without bleeding; K20.80 Other esophagitis without bleeding; K44.9 Diaphragmatic hernia without obstruction or gangrene; D64.9 Anemia, unspecified; M79.7 Fibromyalgia; F41.9 Anxiety disorder, unspecified; N50.82 Scrotal pain; G47.33 Obstructive sleep apnea (adult) (pediatric); J32.9 Chronic sinusitis, unspecified; Z94.7 Corneal transplant status; Z79.899 Other long term (current) drug therapy; F17.210 Nicotine dependence, cigarettes, uncomplicated
CPT/HCPCS: 45380; 43239; 88305; 88342; J2704

== ENCOUNTER → 2023-09-14 10:04 | Outpatient (BNV) | payer OTHER, SELFPAY | PROVIDERS: PCP Internal Medicine; Visit Provider Internal Medicine Gastroenterology | DX: K21.9 Gastro-esophageal reflux disease without esophagitis (principal); K62.5 Hemorrhage of anus and rectum; K64.0 First degree hemorrhoids; K63.5 Polyp of colon | CPT/HCPCS: 45380 ==

== ENCOUNTER 2023-10-12 11:44 | Outpatient (AMB) | payer OTHER, SELFPAY ==
--- NOTE | 2023-10-12 11:46 | MHC.OFFVIS ---
Intake Vital Signs 10/12/23 12:11 Height 5 ft 6 in Weight 170 lb 8 oz BMI 27.5 BP 156/86 H Blood Pressure Location Lt brachial Position Sitting Pulse 70 Intake Visit Reasons: S/p egd/colon Engel Intake Note: This patient presents for a follow-up assessment status post egd. 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: No Accompanied by: Self / Same As Patient Allergies shellfish derived Allergy (Intermediate, Verified 09/14/23 10:42) Rash Medication List - Last Reconciled 10/12/23 by Roro Meek PA-C acetaminophen (Tylenol Extra Strength) 500 mg PO Q6H PRN budesonide-formoterol 160-4.5 mcg/actuation (Symbicort) 2 puffs inhalation BID 30 days buprenorphine-naloxone 8-2 mg 10 mg sublingual DAILY bupropion HCl 150 mg PO QAM calcium polycarbophil (Fiber Laxative (calcium polycarbophil)) 1,250 mg (2 x 625 mg) PO DAILY 30 days cyclobenzaprine 10 mg PO TID PRN diclofenac sodium 1% (Voltaren Arthritis Pain) 4 grams topical QID 30 days docusate sodium 100 mg PO BID fluticasone propionate 50 mcg/actuation (Flonase Allergy Relief) 1 spray intranasal BID gabapentin 100 mg PO BEDTIME hydrocortisone 2.5% (Proctosol HC) 1 appl AR BEDTIME PRN hydroxyzine HCl 50 mg PO BEDTIME ibuprofen 600 mg PO Q6H PRN lactulose 20 grams (30 mL) PO DAILY PRN mirtazapine 15 mg PO BEDTIME naloxone 4 mg/actuation 1 spray intranasal ONCE pantoprazole 40 mg (2 x 20 mg) PO DAILY HPI HPI Comments History of Present Illness Details 43-year-old male follows up after recent EGD colonoscopy. He does complain of stomach feels irritated and burning feels like a lot of acid he is taking pantoprazole daily, he does drink coffee however as well as consume foods do not agree with him, including a lot of takeout food-he had gone to urgent care they gave him a liquid he only took it once he does not like the taste he called his with sucralfate. He has not using NSAID Reviewed procedure report, pathology recommendations. 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 Mother No problems noted. Paternal Aunt Lung cancer Social History Alcohol intake: never Patient Tobacco Use Status: Current everyday Tobacco user Tobacco use type: Cigarette Years Smoked: 23 Years e-Cigarette/Vaping Use: Currently Using Current occupational status: disabled Review of Systems Const All systems reviewed & are unremarkable except as noted in HPI and below Card Denies chest pain and Denies dyspnea Resp Denies dyspnea GI Reports abdominal pain, Reports heartburn, Denies diarrhea, Denies nausea and Denies vomiting Psych Reports anxiety Physical Exam Vital Signs: Last Vital Signs Pulse 70 10/12/23 12:11 BP 156/86 H 10/12/23 12:11 BMI result Body Mass Index 27.5 Const General: cooperative, healthy appearing, comfortable and anxious Orientation/consciousness: patient oriented x3 Limitations: no limitations Eyes Sclerae: sclerae normal Resp Effort & Inspection: normal respiratory effort and able to speak in complete sentences Neuro General: patient oriented x3 Extrem General: Yes full ROM Psych Appearance: well kempt Speech and movement: Clear speech present Affect: Anxious affect present Attitude: cooperative Thought process: Racing thoughts present Thought content: Normal thought content present Results Reviewed Results Reviewed: Endoscopy Findings: gastritis esophagitis Colonoscopy Findings: internal hemorrhoids diverticular disease colitis Plan: Await Pathology results Repeat Colonoscopy in 10 years or earlier if clinically indicated High fiber diet leaflet avoid straining at stool, epsom salts and sitz bath, anusol supps or cream if h pylori pos then treat Name: Carranza Flores,Cody Age/Sex: 43/M Attending: Hung Engel MD : 1980 Submitted by: Hung Engel MD Copies to: Rik Flaherty MD MR #: [id number] Status: [facility] Collected: 09/14/23 Location: [facility] Received: 09/14/23 Diagnosis A. Stomach, biopsy: Gastric antral and body mucosa with congestion and focal minimal chronic inactive inflammation; negative for H pylori, intestinal metaplasia and dysplasia. B. Gastroesophageal junction, biopsy: Squamous mucosa with hyperplasia, spongiosis and rare intraepithelial neutrophils, consistent with esophagitis, and columnar mucosa with hyperplasia and chronic active inflammation; negative for intestinal metaplasia and dysplasia. C. Esophagus, distal, biopsy: Squamous mucosa with mild hyperplasia, in keeping with esophagitis; no columnar mucosa present. D. Colon, cecum, biopsy: Focal mild chronic colitis with minimal activity; negative for granulomas and dysplasia (see comment). E. Terminal ileum, biopsy: Ileal mucosa with no specific change; no ileitis, granulomas or dysplasia. F. Colon, ascending, biopsy: Colonic mucosa with focal minor crypt distortion, otherwise no specific change; no colitis, granulomas or dysplasia. G. Colon, rectum, biopsy: Colonic mucosa with no specific change; no colitis/proctitis, granulomas or dysplasia. Comment: (D): Only 1 of the 2 fragments of cecal mucosa show chronic regenerative changes and a basal lymphoplasmacytic infiltrate compatible with chronic colitis. Clinical correlation is necessary. Clinical History Pre-Op Dx: GERD, rectal bleeding Post-Op Dx: Gastritis, esophagitis, diverticulosis, hemorrhoids, colitis Microscopic Description Microscopic sections reviewed. Immunostain for H. pylori on A is negative with appropriate control. Material Received A. Stomach bx B. GE junction bx C. Distal esophagus bx D. Cecum bx Patient: Cody Shepard [facility]: 43/[id number] MR#: [id number] Page 1 of 3 Assessment & Plan Assessment & Plan (1) Colitis: Comment: sp colon reviewed procedure report, pathology recommendation Code(s): K52.9 - Noninfective gastroenteritis and colitis, unspecified Plan: Stool for fecal lucio CTe Plan Stool for fecal lucio CTe Reflux precautions review Carafate 1 g b.i.d. Orders: Orders Calprotectin, Fecal Today R19.7 - Diarrhea, unspecified CT enterography Today K52.9 - Noninfective gastroenteritis and colitis, unspecified Medications: New sucralfate 1 g PO BID 4 weeks 56 tabs 0RF Patient Instructions: Stool for fecal lucio CTe- Reflux precautions reviewed-avoid culprits Carafate 1 gm bid-tablets Coding Level of Care Code Est Pt Level 3 (26520) Diagnoses Colitis K52.9 Time Spent (min) 30
[2023-10-12 12:11] VITALS: BP 156/86; PULSE 70; BMI 27.5
== END 2023-10-12 12:42 | disposition home or self-care (01) ==
PROVIDERS: PCP Internal Medicine; Visit Provider Physician Assistant
DX: K52.9 Noninfective gastroenteritis and colitis, unspecified (principal)
CPT/HCPCS: 99213

== ENCOUNTER → 2023-10-12 11:44 | Outpatient (BNVA) | payer OTHER, SELFPAY | PROVIDERS: PCP Internal Medicine; Visit Provider Physician Assistant | DX: K52.9 Noninfective gastroenteritis and colitis, unspecified (principal) | CPT/HCPCS: 99212 ==

== ENCOUNTER 2023-10-16 | Outpatient (REF) | payer OTHER, SELFPAY ==
[2023-10-25 01:48] LABS: Calprotectin, Fecal 298 mcg/g
== END 2023-10-16 00:01 | disposition home or self-care (01) ==
LOC: HO.LNP
PROVIDERS: Visit Provider Physician Assistant
DX: R19.7 Diarrhea, unspecified (principal)
CPT/HCPCS: 83993

== ENCOUNTER 2023-10-21 10:18 | Outpatient (AMB) | payer OTHER, SELFPAY ==
--- NOTE | 2023-10-21 10:19 | MHC.OFFVIS ---
Intake Vital Signs 10/21/23 10:26 Height 5 ft 6 in Weight 171 lb 4 oz BMI 27.6 BP 122/80 Blood Pressure Location Lt brachial Position Sitting Pulse 65 Pulse Source Pulse Oximeter Pulse Oximetry (%) 98 Oxygen Delivery Method Room Air Intake Visit Reasons: jesu, FM/ Conf Intake Note: Patient presents JESU. Snoring and can't sleep at night Allergies shellfish derived Allergy (Intermediate, Verified 10/21/23 10:24) Rash HPI HPI Comments History of Present Illness Details 43 y/o male patient presents for new in-person visit for sleep consultation. Pt reports difficulty falling asleep and staying sleep. Pt reports he has hx of opioid abuse and is on suboxone BID. He reports had back pain and used tramadol, and he felt high and used tramadol too much. Pt states that his sleep problem started since he started suboxone. He feels drowsy when he takes suboxne, doze off in the morning and also in the evening, but he can't fall asleep. Pt's sleep schedule is also irregular. Sometimes he sleeps 7 am to 1 pm, sometiems 10 am to 4 pm. He uses hydrozyzine and mirtazapien for sleep. He states that he does not do anything at home after sending his children to school. He watches TV and plays games, and sleep during daytime. Pt reports depression and anxiety and sees therapist at [facility]. Pt had a home sleep study done in 2021, and the result was negative for sleep apnea. Do you snore? Yes. Do you wake up gasping at night? No. Do you have episodes of apneas? Don't know. If yes, are they witnessed? No. Do you have episodes of nocturnal chest pain or dyspnea? No. Do you have difficulty initiating sleep? Yes. Do you have difficulty maintaining sleep? Yes. Do you wake up tired? Yes. Do you have headaches upon awakening? No. Do you wake up with dry mouth or throat? Yes, sometimes. Do you have GERD? No. Do you have nocturia? No. Do you have nocturnal leg cramps? No. Do you have symptoms of restless legs? No. Do you act out your dreams? No. Sleep hygiene questionnaire: What is your usual sleep routine? N/A Usual bedtime is at 7- 8 am ; Usual wake up time is at 1 pm. Do you take naps? N/A. Is your sleep environment cool, dark, and quiet? Yes. Do you exercise? No. Do you take caffeine or other stimulants? Coffee when he wakes up. Do you use electronics in bed? Yes. What is your work schedule? No Hypersomnolence questionnaire: Do you have daytime tiredness or fatigue? Yes. Do you easily fall asleep when inactive? No. Have you ever had episodes of sudden weakness? No. Have you ever had episodes of sudden weakness associated with strong emotions? No. PFSH Medical History (Updated 10/29/23 @ 11:19 by Ramona Mar CNP) Fibromyalgia GERD (gastroesophageal reflux disease) Scrotal pain Rhinosinusitis Deviated nasal bone [id number] syndrome COVID-19 Anxiety Surgical History History of esophagogastroduodenoscopy (EGD) Hx of colonoscopy History of cornea transplant Family History Father No problems noted. Mother No problems noted. Paternal Aunt Lung cancer Social History Alcohol intake: never Patient Tobacco Use Status: Current everyday Tobacco user Tobacco use type: Cigarette Years Smoked: 23 Years e-Cigarette/Vaping Use: Currently Using Current occupational status: disabled Review of Systems Const All systems reviewed & are unremarkable except as noted in HPI and below Physical Exam Vital Signs: Last Vital Signs Pulse 65 10/21/23 10:26 BP 122/80 10/21/23 10:26 Pulse Ox 98 10/21/23 10:26 Oxygen Delivery Method Room Air 10/21/23 10:26 BMI result Body Mass Index 27.6 Const General: cooperative and healthy appearing Nutritional Appearance: overweight Orientation/consciousness: patient oriented x3 Resp Effort & Inspection: normal respiratory effort and able to speak in complete sentences Neuro General: patient oriented x3 and gait normal Cranial nerves: Yes CN's II-XII intact bilaterally Gait exam (Neuro): Normal gait present Motor exam (neuro): 5/5 motor strength present throughout Assessment & Plan Assessment & Plan (1) Sleep disturbance: Code(s): G47.9 - Sleep disorder, unspecified Plan Sleep hygiene education provided. Adjust sleep schedule slowly. Encouraged patient to have routine sleep schedule, increase physical activities during daytime. Pt is already [facility] patient, refer for CBTi. Coding Level of Care Code New Pt Level 3 (06717) Diagnoses Sleep disturbance G47.9
[2023-10-21 10:26] VITALS: BP 122/80; PULSE 65; O2SAT 98; BMI 27.6
== END 2023-10-21 10:53 | disposition home or self-care (01) ==
PROVIDERS: PCP Internal Medicine; Referring Provider Nurse Practitioner Primary Care; Visit Provider Nurse Practitioner Family
DX: G47.9 Sleep disorder, unspecified (principal)
CPT/HCPCS: 99203

== ENCOUNTER → 2023-10-21 10:18 | Outpatient (BNVA) | payer OTHER, SELFPAY | PROVIDERS: PCP Internal Medicine; Referring Provider Nurse Practitioner Primary Care; Visit Provider Nurse Practitioner Family | DX: G47.9 Sleep disorder, unspecified (principal) | CPT/HCPCS: 99202 ==

== ENCOUNTER 2023-11-22 09:18 | Outpatient (REF) | payer OTHER, SELFPAY ==
--- NOTE | ~2023-11-22 | CT_ITS ---
EXAMINATION: CT ENTEROGRAPHY ABDOMEN AND PELVIS WITH CONTRAST CLINICAL INFORMATION: Noninfected of gastritis and colitis. COMPARISON: 08/24/2023 TECHNIQUE: Study performed with oral VoLumen (1350 mL) and 480 mL of water to distend the abdomen. The patient was injected with 85 mL Omnipaque 350 intravenous contrast which was administered without adverse effect. Coronal and sagittal reformatted images were obtained at the technologist's workstation. This CT examination was performed using dose optimization techniques as appropriate, variously including the following: *Automated exposure control *Adjustment of mA and/or kV according to patient size (this includes techniques or standardized protocols for targeted exams where dose is matched to indication/reason for exam; i.e. extremities or head) *Use of iterative reconstruction technique DLP: 365 mGy-cm FINDINGS: GASTROINTESTINAL FINDINGS: Stomach: Well-distended and normal in appearance. Small intestine: Satisfactorily distended and normal in appearance. Large intestine: Well-distended and normal in appearance. No perirectal changes demonstrated. The appendix is normal. Additional findings: Mildly prominent vasa recta surrounding the sigmoid colon (3:216). Mildly prominent mesenteric adenopathy measuring up to 1.1 cm (3:137).. No abdominal abscess or fistulous tract demonstrated. ABDOMINAL AND PELVIC CT FINDINGS: Liver, gallbladder, biliary tract: Diffuse hypoattenuation of the liver parenchyma likely reflects hepatic steatosis. No focal hepatic lesion or intrahepatic biliary ductal dilatation. Pancreas: Unremarkable Spleen: Unremarkable Adrenal glands and kidneys: Unremarkable. No hydronephrosis or nephrolithiasis. Ureters and bladder: Unremarkable. Lymphovascular structures: Unremarkable. Bones: Unremarkable Lung bases: Clear CT/CT enterography IMPRESSION: * Mildly prominent vasa recta surrounding the sigmoid colon and mildly prominent mesenteric adenopathy. These findings may reflect mild colitis. * Hepatic steatosis.
[2023-11-22] MEDS: Sorbitol/Mannit/Xanth Imaging 500 ML LIQUID 1500 ML PO (11:06)
[2023-11-22] MEDS: iohexoL 350 MG/ML 100 ML INFUS..BTL 85 ML IV (11:14)
== END 2023-11-22 09:19 | disposition home or self-care (01) ==
LOC: HO.CT 09:18
PROVIDERS: PCP Internal Medicine; Visit Provider Physician Assistant
DX: K52.9 Noninfective gastroenteritis and colitis, unspecified (principal)
CPT/HCPCS: 74177; Q9967

== ENCOUNTER 2023-12-07 11:49 | Outpatient (AMB) | payer OTHER, SELFPAY ==
--- NOTE | 2023-12-07 11:56 | A.OFFVIS_ITS ---
Intake Vital Signs 12/07/23 11:58 Height 5 ft 6 in Weight 170 lb BMI 27.4 BP 141/77 H Blood Pressure Location Lt brachial Position Sitting Pulse 62 Intake Visit Reasons: 8 week follow up Intake Note: Patient follow up for Colitis and stool and CT results. Patient cc: abdominal burning sensation every day, denies any other GI issues. Recreational Specialist Required: No Accompanied by: Self / Same As Patient Allergies shellfish derived Allergy (Intermediate, Verified 12/07/23 11:56) Rash HPI HPI Comments History of Present Illness Details 43-year-old male follows up after recent CT enterography-and elevated fecal calprotectin- reviewed with pt- Complains of nonspecific abdominal ?burning? stools blood intermittently Again reviewed EGD and colonoscopy from 09/2023 Dr. Engel No N/V/ fever or chills PFSH Medical History Fibromyalgia GERD (gastroesophageal reflux disease) Scrotal pain Rhinosinusitis Deviated nasal bone [id number] syndrome COVID-19 Anxiety Surgical History History of esophagogastroduodenoscopy (EGD) Hx of colonoscopy History of cornea transplant Family History Father No problems noted. Mother No problems noted. Paternal Aunt Lung cancer Social History Alcohol intake: never Patient Tobacco Use Status: Current everyday Tobacco user Tobacco use type: Cigarette Years Smoked: 23 Years e-Cigarette/Vaping Use: Currently Using Current occupational status: disabled Review of Systems Card Denies chest pain and Denies dyspnea Resp Denies dyspnea GI Reports abdominal pain, Reports hematochezia, Reports loose stools, Denies nausea and Denies vomiting Physical Exam Vital Signs: Last Vital Signs Pulse 62 12/07/23 11:58 BP 141/77 H 12/07/23 11:58 BMI result Body Mass Index 27.4 Const General: cooperative, healthy appearing and comfortable Orientation/consciousness: patient oriented x3 Limitations: no limitations Resp Effort & Inspection: normal respiratory effort and able to speak in complete sentences Auscultation: clear to auscultation bilaterally, no rales, no rhonchi and no wheezes Cardio Rate: regular rate Rhythm: regular rhythm Heart sounds: S1 normal heart sound present and S2 normal heart sound present GI Palpation (GI): Soft to palpation and nontender Auscultation: normal bowel sounds Skin General skin exam: no rashes or lesions noted Neuro General: patient oriented x3 Extrem General: Yes full ROM Psych Appearance: grossly normal and well kempt Mental Status: mental status grossly normal Speech and movement: Normal speech and movement present Affect: Anxious affect present Attitude: cooperative Thought process: Normal thought process present Thought content: Normal thought content present Results Reviewed Results Reviewed: CT/CT enterography IMPRESSION: * Mildly prominent vasa recta surrounding the sigmoid colon and mildly prominent mesenteric adenopathy. These findings may reflect mild colitis. * Hepatic steatosis. Impression and Post Procedure Diagnosis: Endoscopy Findings: gastritis esophagitis Colonoscopy Findings: internal hemorrhoids diverticular disease colitis Plan: Await Pathology results Repeat Colonoscopy in 10 years or earlier if clinically indicated High fiber diet leaflet avoid straining at stool, epsom salts and sitz bath, anusol supps or cream if h pylori pos then treat Diagnosis A. Stomach, biopsy: Gastric antral and body mucosa with congestion and focal minimal chronic inactive inflammation; negative for H pylori, intestinal metaplasia and dysplasia. B. Gastroesophageal junction, biopsy: Squamous mucosa with hyperplasia, spongiosis and rare intraepithelial neutrophils, consistent with esophagitis, and columnar mucosa with hyperplasia and chronic active inflammation; negative for intestinal metaplasia and dysplasia. C. Esophagus, distal, biopsy: Squamous mucosa with mild hyperplasia, in keeping with esophagitis; no columnar mucosa present. D. Colon, cecum, biopsy: Focal mild chronic colitis with minimal activity; negative for granulomas and dysplasia (see comment). E. Terminal ileum, biopsy: Ileal mucosa with no specific change; no ileitis, granulomas or dysplasia. F. Colon, ascending, biopsy: Colonic mucosa with focal minor crypt distortion, otherwise no specific change; no colitis, granulomas or dysplasia. G. Colon, rectum, biopsy: Colonic mucosa with no specific change; no colitis/proctitis, granulomas or dysplasia. Comment: (D): Only 1 of the 2 fragments of cecal mucosa show chronic regenerative changes and a basal lymphoplasmacytic infiltrate compatible with chronic colitis. Clinical correlation is necessary. Assessment & Plan Assessment & Plan (1) Colitis: Comment: Again reviewed procedure report, pathology recommendation Code(s): K52.9 - Noninfective gastroenteritis and colitis, unspecified (2) High fecal calprotectin: Code(s): R19.5 - Other fecal abnormalities Plan: repeat 1 month- Plan Apriso 4 tabs fecal lucio 4 wks- repeat Orders: Orders Calprotectin, Fecal 1 Month K52.9 - Noninfective gastroenteritis and colitis, unspecified, R19.5 - Other fecal abnormalities, R19.7 - Diarrhea, unspecified Medications: New mesalamine ER (Apriso) 1.5 grams (4 x 0.375 gram) PO DAILY 120 caps 0RF 30 days Patient Instructions: Apriso 4 tabs fecal lucio 4 wks- repeat Coding Level of Care Code Est Pt Level 3 (88833) Diagnoses Colitis K52.9 High fecal calprotectin R19.5 Time Spent (min) 20
[2023-12-07 11:58] VITALS: BP 141/77; PULSE 62; BMI 27.4
== END 2023-12-07 12:27 | disposition home or self-care (01) ==
PROVIDERS: PCP Internal Medicine; Visit Provider Physician Assistant
DX: K52.9 Noninfective gastroenteritis and colitis, unspecified (principal); R19.5 Other fecal abnormalities
CPT/HCPCS: 99213

== ENCOUNTER → 2023-12-07 11:49 | Outpatient (BNVA) | payer OTHER, SELFPAY | PROVIDERS: PCP Internal Medicine; Visit Provider Physician Assistant | DX: K52.9 Noninfective gastroenteritis and colitis, unspecified (principal); R19.5 Other fecal abnormalities | CPT/HCPCS: 99212 ==

== ENCOUNTER 2023-12-09 09:36 | Outpatient (AMB) | payer OTHER, SELFPAY ==
--- NOTE | 2023-12-09 09:41 | MHC.OFFVIS ---
Intake Vital Signs 12/09/23 09:42 Height 5 ft 6 in Weight 172 lb 2.896 oz BMI 27.8 BP 130/70 Blood Pressure Location Rt brachial Position Sitting Pulse 64 Pulse Source Pulse Oximeter Pulse Oximetry (%) 97 Oxygen Delivery Method Room Air Intake Visit Reasons: VICKIE +ve/CM Intake Note: Pt last seen 04/01/23 presents today for follow up and test results. C/o pain in shoulders, chest, groin. Reports dizziness and difficulty sleeping. Stomach burning following with [facility] Roro Gunderson- given meds and monitor. States he feels scared to fall asleep sometimes and not wake up. Competency Evaluated Nurse Aide Required: No Accompanied by: Self / Same As Patient Allergies shellfish derived Allergy (Intermediate, Verified 12/09/23 09:44) Rash Medication List - Last Reconciled 12/09/23 by Rosanne Donahue MD acetaminophen (Tylenol Extra Strength) 500 mg PO Q6H PRN budesonide-formoterol 160-4.5 mcg/actuation (Symbicort) 2 puffs inhalation BID 30 days buprenorphine-naloxone 8-2 mg 10 mg sublingual DAILY bupropion HCl XL 150 mg PO QAM calcium polycarbophil (Fiber Laxative (calcium polycarbophil)) 1,250 mg (2 x 625 mg) PO DAILY 30 days cyclobenzaprine 10 mg PO TID PRN diclofenac sodium 1% (Voltaren Arthritis Pain) 4 grams topical QID 30 days docusate sodium 100 mg PO BID duloxetine 60 mg PO DAILY fluticasone propionate 50 mcg/actuation (Flonase Allergy Relief) 1 spray intranasal BID gabapentin 100 mg PO BEDTIME hydrocortisone 2.5% (Proctosol HC) 1 appl TN BEDTIME PRN hydroxyzine HCl 50 mg PO BEDTIME ibuprofen 600 mg PO Q6H PRN lactulose 20 grams (30 mL) PO DAILY PRN loratadine 10 mg PO DAILY mesalamine ER (Apriso) 1.5 grams (4 x 0.375 gram) PO DAILY 30 days mirtazapine 15 mg PO BEDTIME mirtazapine 30 mg PO BEDTIME naloxone 4 mg/actuation 1 spray intranasal ONCE pantoprazole 40 mg (2 x 20 mg) PO DAILY sennosides (senna) 17.2 mg PO DAILY sucralfate 1 g PO BID 4 weeks HPI HPI Comments History of Present Illness Details 43-year-old male with fibromyalgia returns for follow-up. States that he has has been having persistent pain in his shoulders, sides, neck, back. States that he has difficulty falling asleep. Worried that he will asleep just like his [id number]-egb. Initial history: This is a 42-year-old male who presents for evaluation positive VICKIE and diffuse pain. States that he went to the emergency room recently for neck pain. Imaging showed mild degenerative disc changes and findings consistent with neck spasm. He states that he has left shoulder pain and tingling and numbness along his left upper extremity. He also occasionally gets numbness of his thighs. He also has pain in his right lateral chest wall. He is unaware of any family history of autoimmune rheumatic disease. Denies any oral ulcers, denies skin rashes, denied any blood in the urine. He has difficulty falling and staying asleep. Has constant fatigue. He is this is able to do to Kertoconus. 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 Mother No problems noted. Paternal Aunt Lung cancer Social History Alcohol intake: never Patient Tobacco Use Status: Current everyday Tobacco user Tobacco use type: Cigarette Years Smoked: 23 Years e-Cigarette/Vaping Use: Currently Using Current occupational status: disabled Review of Systems Const Reports weakness ENT Reports neck pain Musc Reports neck pain, Reports numbness and Reports tingling Neuro Reports numbness, Reports tingling and Reports weakness Psych Reports abnormal sleep pattern and Reports anxiety Physical Exam Vital Signs: Last Vital Signs Pulse 64 12/09/23 09:42 BP 130/70 12/09/23 09:42 Pulse Ox 97 12/09/23 09:42 Oxygen Delivery Method Room Air 12/09/23 09:42 BMI result Body Mass Index 27.8 Const General: cooperative, healthy appearing and comfortable Nutritional Appearance: average body habitus Orientation/consciousness: patient oriented x3 Limitations: no limitations HEENT Head: Yes normocephalic and Yes atraumatic Mouth: moist mucous membranes Resp Effort & Inspection: normal respiratory effort and able to speak in complete sentences Auscultation: clear to auscultation bilaterally Cardio Rate: regular rate Rhythm: regular rhythm GI Palpation (GI): Soft to palpation and nontender Skin General skin exam: no rashes or lesions noted Neuro General: patient oriented x3 Extrem Other: No active synovitis Normal nailfold capillaroscopy Few fibromyalgia tender points Negative Tinel sign bilaterally Assessment & Plan Assessment & Plan (1) Positive VICKIE (antinuclear antibody): Comment: Saw rheumatology fibromyalgia Code(s): R76.8 - Other specified abnormal immunological findings in serum Plan: This is a 43-year-old male who presents for evaluation of positive VICKIE 1-80 speckled. I do not see any signs of autoimmune rheumatic disease upon my evaluation. Discussed that around 15-20% of the population have a positive VICKIE and that does not necessarily mean having an autoimmune rheumatic disease. No further testing for autoimmune rheumatic disease is required at this point. Follow-up with PCP (2) Fibromyalgia, primary: Code(s): M79.7 - Fibromyalgia Plan: Discussed management of fibromyalgia with patient. Is a noninflammatory, non-autoimmune central afferent processing disorder leading to a diffuse pain syndrome. Patient already has a psychiatrist and a psychotherapist. Advised patient to Try to follow sleep hygiene practices. Discuss CBT for sleep with psychotherapist. Patient would benefit from increased physical activity, either through formal physical therapy or by joining a gym. Advised patient that she should start activity slowly and increase as tolerated. Consider low-impact exercises such as walking, swimming, aqua therapy stretching, yoga. Patient is already on multiple meds that can help fibromyalgia including gabapentin and duloxetine. Follow-up with PCP (3) Left carpal tunnel syndrome: Code(s): G56.02 - Carpal tunnel syndrome, left upper limb Plan: Patient has wrist splints at home but does not use them. Advised patient to use them nightly Plan I spent 27 minutes reviewing patient's chart, evaluating patient, counseling patient and documenting in the chart Coding Level of Care Code Est Pt Level 4 (69057) Diagnoses Positive VICKIE (antinuclear antibody) R76.8 Fibromyalgia, primary M79.7 Left carpal tunnel syndrome G56.02
[2023-12-09 09:42] VITALS: BP 130/70; PULSE 64; O2SAT 97; BMI 27.8
== END 2023-12-09 11:01 | disposition home or self-care (01) ==
PROVIDERS: PCP Internal Medicine; Visit Provider Student in an Organized Health Care Education/Training Program
DX: R76.8 Other specified abnormal immunological findings in serum (principal); M79.7 Fibromyalgia; G56.02 Carpal tunnel syndrome, left upper limb
CPT/HCPCS: 99214

== ENCOUNTER → 2023-12-09 09:36 | Outpatient (BNVA) | payer OTHER, SELFPAY | PROVIDERS: PCP Internal Medicine; Visit Provider Student in an Organized Health Care Education/Training Program | DX: R76.8 Other specified abnormal immunological findings in serum (principal); M79.7 Fibromyalgia; G56.02 Carpal tunnel syndrome, left upper limb | CPT/HCPCS: 99212 ==

== ENCOUNTER 2024-01-10 13:12 | Outpatient (AMB) | payer OTHER, SELFPAY ==
--- NOTE | 2024-01-10 13:14 | A.OFFVIS_ITS ---
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 The COVID infection was not very severe. Subsequently after that he has had some odd sensations in his substernal area and chest area. Feels like he has episodic shortness of breath with cough and palpitations. he has been evaluated multiple times in the ER. He did have a CT scan of the chest of 1 point in the beginning April of this year. Ruled out pulmonary emboli. The patient did have just a small amount of emphysema but otherwise no other significant findings noted. His blood work all has been pretty reassuring as well. He did have a cardiac workup including a stress test and an echo without any significant abnormalities. Yet his symptoms are severe enough for him to go to the ER for medical advice because he feels like he is going . he was given a short-acting beta agonist at 1 point but it only resulting worsening palpitations and tremulousness so therefore he stop it. 06/12/2022 the patient is here for pulmonary follow-up visit. He continues to have symptoms of dyspnea on exertion. He did try the Flovent although he did not see any significant improvement. Will go ahead and switch over to Symbicort. I am hopeful that does not cause much tremulousness or palpitations. The patient 1 puff at a time. in the meantime the patient also complains of significant nasal congestion. In part this is making it difficult for him to breathe. I do believe that a big component of his shortness breath is likely from upper airway obstruction issues. He did undergo a CT scan of the sinuses demonstrating with the septum with some other chronic changes. Will go ahead and place the patient on Sudafed the hope the tolerated and also nasal therapy. Wound time also put in a referral in for ENT 1 to further evaluate his deviated septum. Patient also has been having daytime drowsiness. His Mitchell score is elevated 07/30. Did undergo home sleep study which we personally reviewed in the office demonstrating no evidence of any sleep apnea. Explained to the patient that the test is not 100%. If the patient continues symptomatic we can always consider in-lab study. 12/17/2022 the patient is here for a pulmonary follow-up visit. Overall he is doing better from a respiratory status. He is responding well to the Symbicort. He has not followed up with ENT. She does use his nasal therapies as needed seems to be doing a little better as well. In addition to that she is complaining of chest discomfort. Bilateral primarily closer to the armpit area. He went to the ER twice for. [place] to be musculoskeletal. He was given ibuprofen. I did reassure him that it seems to be likely due to a muscle strain while trying to move a heavy object. The patient did have a chest x-ray which I personally reviewed demonstrating no acute disease. Otherwise patient is without any other complaints. 01/10/2024 the patient is here for a pulmonary follow-up visit. Overall doing well from a respiratory status. He still has a Symbicort although he does use it as needed. Has not used it recently. He is still having episodes of and anxiety and panic attacks. The episodes still caused him to have some shortness of breath. The usually subside. He has had a Holter monitor for about 4 days. No evidence of any tachycardia or palpitations. Or arrhythmias. Although she did have a reaction to the tape and caused him to have significant skin issues for some time. He has not interested in having another 1 or considering an event monitor. The patient does not have any recent imaging studies. We did talk about the methacholine challenge. He did not have it. At this point he has a clinical diagnosis of asthma. It would have to be confirmed with a methacholine challenge. Will continue the current inhalers as prescribed. In the meantime having difficulty sleeping. He was prescribed gabapentin 100 mg. Does not seem to be enough. I will go ahead and increase it to 200 mg an hour before sleep. If is still not enough is able to take 300 mg and he can always call so I can adjust the dose. Patient follow-up in 6 months. [facility] Medical History Fibromyalgia GERD (gastroesophageal reflux disease) Scrotal pain Rhinosinusitis Deviated nasal bone [id number] syndrome COVID-19 Anxiety Surgical History History of esophagogastroduodenoscopy (EGD) Hx of colonoscopy History of cornea transplant Family History Father No problems noted. Mother No problems noted. Paternal Aunt Lung cancer Social History Alcohol intake: never Patient Tobacco Use Status: Current everyday Tobacco user Tobacco use type: Cigarette Years Smoked: 23 Years e-Cigarette/Vaping Use: Currently Using Current occupational status: disabled Review of Systems Const Reports daytime sleepiness, Reports difficulty sleeping and Denies fever(s) Eyes Denies loss of vision ENT Denies dizziness, Denies hearing loss, Reports nasal congestion and Reports nasal discharge Card Denies claudication, Denies leg edema, Denies lightheadedness, Reports palpitations, Reports dyspnea, Reports dyspnea on exertion, Denies orthopnea and Denies other (Loss of consciousness) Resp Denies excessive phlegm production, Reports dyspnea and Reports dyspnea on exertion GI Denies abdominal pain, Denies hematochezia, Denies change in bowel habits, Denies nausea and Denies vomiting Denies dysuria and Denies urinary frequency Musc Reports myalgias, Denies arthralgias, Denies muscle weakness and Denies numbness Skin/Breast Denies nail changes and Denies rash Neuro Denies Abnormal speech present, Denies dizziness, Denies loss of vision, Denies memory loss and Denies numbness Psych Reports anxiety, Denies depression and Denies memory loss Endo Reports palpitations Thor/Lymph Denies easy bruising and Denies other (Anemia) Physical Exam Vital Signs: Last Vital Signs Pulse 73 01/10/24 13:15 Pulse Ox 96 01/10/24 13:15 Oxygen Delivery Method Room Air 01/10/24 13:15 BMI result Body Mass Index 27.8 Const General: comfortable and no acute distress Orientation/consciousness: patient oriented x3 HEENT Other: Unremarkable Head: Yes normal to inspection Neck Neck: Yes normal visual inspection Chest Chest palpation & inspection: normal inspection of the chest Resp Effort & Inspection: normal respiratory effort Auscultation: clear to auscultation bilaterally Cardio Heart sounds: S1 normal heart sound present, S2 normal heart sound present, no gallops, no murmurs and no rubs GI Palpation (GI): Soft to palpation Back/Spine/Pelvis Other: unremarkable Skin General skin exam: no rashes or lesions noted Neuro General: patient oriented x3 Speech: No Abnormal speech present Extrem General: Yes normal to inspection Psych Mental Status: mental status grossly normal Results Reviewed Results Reviewed: [address] [place] [address] CT Scan Report Signed Patient: Cody Shepard MR#: [id number] : 1980 Acct:[id number] Age/Sex: 42 / M ADM Date: 01/06/23 Loc: .ED Attending Dr: Ordering Physician: Sreedhar Hall Date of Service: 01/06/23 Procedure(s): CT angio chest PE protocol Accession Number(s): [id number] cc: Sreedhar Hall~ EXAMINATION: CT ANGIOGRAM OF THE CHEST WITH AND WITHOUT CONTRAST (CT PULMONARY ANGIOGRAM FOR PE) CLINICAL INFORMATION: Reason for Exam + sob + dimer COMPARISON: Chest x-ray 01/06/2023. CTA chest 04/06/2022 TECHNIQUE: Prior to contrast administration, noncontrast localization images were obtained. Subsequently, multidetector volumetric imaging was performed from the thoracic inlet to below the diaphragms following the administration of 80 mL Omnipaque 350 intravenous contrast. No contrast reaction reported Sagittal, coronal, and MIP oblique sagittal reformatted images were obtained on the CT workstation, uploaded to PACS, and reviewed. This CT examination was performed using dose optimization techniques as appropriate, variously including the following: *Automated exposure control *Adjustment of mA and/or kV according to patient size (this includes techniques or standardized protocols for targeted exams where dose is matched to indication/reason for exam; i.e. extremities or head) *Use of iterative reconstruction technique Total exam dose-length product 260 mGy-cm FINDINGS: QUALITY OF STUDY/CONTRAST BOLUS: Satisfactory. PULMONARY ARTERIES: No pulmonary emboli. THORACIC AORTA: No aneurysm. LUNG: No focal consolidation, nodules or masses. PLEURA: No pleural effusion or pneumothorax. MEDIASTINUM: Normal heart size. No pericardial effusion. No hilar or mediastinal lymphadenopathy. No evidence of septal bowing or right heart strain. CORONARY ARTERY CALCIFICATION: None visualized on this study. CHEST WALL/AXILLA: No axillary or internal mammary lymphadenopathy. OSSEOUS STRUCTURES: No acute or suspicious osseous abnormality. UPPER ABDOMEN: Unremarkable. No reflux of contrast into the hepatic veins to suggest elevated right heart pressures. CT/CT angio chest PE protocol IMPRESSION: No evidence of PE. No evidence of aortic dissection. Or aneurysm. VTE: negative Dictated By: Andrew Majano MD Signed By: <Electronically signed by Andrew Majano MD in OV> 01/06/232137 DD/ 18 TD/TT: Lens Examiner: [facility] [place] Assessment & Plan Assessment & Plan (1) SOB (shortness of breath): Code(s): R06.02 - Shortness of breath Category: Medical (2) Rhinosinusitis: Code(s): J31.0 - Chronic rhinitis; J32.9 - Chronic sinusitis, unspecified Category: Medical (3) Deviated nasal bone: Code(s): J34.2 - Deviated nasal septum Category: Medical (4) Sleep disturbance: Code(s): G47.9 - Sleep disorder, unspecified Category: Medical Plan NAWAF as needed continue Zyrtec increase gabapentin 200mg QHD F/U 6 months Medications: New gabapentin 200 mg (2 x 100 mg) PO BEDTIME 30 days 60 caps 6RF Discontinued gabapentin Discontinued Reason: Doctor's Order 100 mg PO BEDTIME 10 caps 0RF Coding Level of Care Code Est Pt Level 4 (29171) Diagnoses SOB (shortness of breath) R06.02 Rhinosinusitis J31.0; J32.9 Deviated nasal bone J34.2 Sleep disturbance G47.9 Time Spent (min) 16
[2024-01-10 13:15] VITALS: PULSE 73; O2SAT 96; BMI 27.8
== END 2024-01-10 13:39 | disposition home or self-care (01) ==
PROVIDERS: PCP Internal Medicine; Visit Provider Hospitalist
DX: R06.02 Shortness of breath (principal); J31.0 Chronic rhinitis; J32.9 Chronic sinusitis, unspecified; J34.2 Deviated nasal septum; G47.9 Sleep disorder, unspecified
CPT/HCPCS: 99214

== ENCOUNTER → 2024-01-10 13:12 | Outpatient (BNVA) | payer OTHER, SELFPAY | PROVIDERS: PCP Internal Medicine; Visit Provider Hospitalist | DX: R06.02 Shortness of breath (principal); J31.0 Chronic rhinitis; J32.9 Chronic sinusitis, unspecified; J34.2 Deviated nasal septum; G47.9 Sleep disorder, unspecified | CPT/HCPCS: 99212 ==

== ENCOUNTER 2024-01-14 21:55 | Emergency (ER) | payer OTHER, SELFPAY ==
--- NOTE | ~2024-01-14 | XR_ITS ---
EXAMINATION: XR CHEST CLINICAL INFORMATION: Chest pain. COMPARISON: Prior chest radiographs, most recently 05/12/2023. TECHNIQUE: Frontal view of the chest was obtained. FINDINGS: No significant abnormality is noted involving the heart, lungs, mediastinum, bony thorax or soft tissues. XR/XR chest 1V IMPRESSION: Unremarkable examination.
[2024-01-14 22:02] VITALS: BP 125/71; PULSE 64; RESP 16; TEMP 36.7; O2SAT 97; BMI 27.4
[2024-01-14 22:15] LABS: MANUAL DIFF FLAG NO
[2024-01-14 22:17] LABS: Basophils Absolute Auto 0.1 X10*3/uL (0.0-0.2); Basophils Percent Auto 1.2 % (0-2); Eosinophils Absolute Auto 0.1 X10*3/uL (0.0-0.4); Eosinophils Percent Auto 2.6 % (0-4); Hematocrit 38.5 % (42.0-52.0); Hemoglobin 13.7 g/dl (14.0-18.0); Imm Gran Abs Auto 0.01 X10*3/uL (0.00-0.03); Imm Gran Pct Auto 0.2 % (0.0-0.4); Lymphocytes Absolute Auto 1.7 X10*3/uL (1.2-4.9); Lymphocytes Percent Auto 40.8 % (20-40); Mean Corpuscular HGB Conc 35.6 g/dl (31.0-36.0); Mean Corpuscular Hemoglobin 29.7 pg (27.0-33.0); Mean Corpuscular Volume 83.3 fL (80.0-98.0); Mean Platelet Volume 9.3 fL (9.4-12.4); Monocytes Absolute Auto 0.3 X10*3/uL (0.1-1.2); Neutrophils Percent Auto 48.2 % (45-73); Platelet Count 221 X10*3/uL (160-400); Red Blood Count 4.62 X10*6/uL (4.60-5.80); Red Cell Distribution Width 11.7 % (11.0-16.0); White Blood Count 4.2 X10*3/uL (4.8-10.8)
[2024-01-14 22:32] LABS: Alanine Aminotransferase 86 U/L (0-40); Albumin Level 4.3 g/dL (3.5-5.0); Alkaline Phosphatase 67 U/L (39-117); Anion Gap 13 (12-20); Aspartate Amino Transferase 41 U/L (5-37); Bilirubin Total 0.5 mg/dL (0.0-1.0); Blood Urea Nitrogen 13 mg/dL (9-16); Calcium 9.5 mg/dL (8.4-10.2); Carbon Dioxide 29 mmol/L (22-29); Chloride 105 mmol/L (96-108); Creatinine Clr Calc Pharmacy 84.6; Estimated Glomerular Filt Rate > 60; Glucose Random 135 mg/dL (60-115); Potassium 3.8 mmol/L (3.3-5.1); Sodium 143 mmol/L (135-145); Total Protein 7.8 g/dL (6.5-8.0)
[2024-01-14 22:53] LABS: Influenza A PCR NEGATIVE (Negative); Influenza B PCR NEGATIVE (Negative); Resp Syncy Virus RNA Qual PCR NEGATIVE (Negative); SARS COV2 PCR INHOUSE NEGATIVE (Negative)
[2024-01-14 22:56] VITALS: BP 116/67; PULSE 57; RESP 16; TEMP 36.5; O2SAT 97
[2024-01-14] MEDS: Magnesium Hydrox/Alum Hydrox 30 ML ORAL.SUSP PO (23:27)
[2024-01-14] MEDS: Lidocaine HCl Viscous 2 % 15 ML SOLUTION MUCOUS MEM (23:27)
[2024-01-14] MEDS: Ondansetron ODT 4 MG TAB.RAPDIS TRANSLINGU (23:27)
--- NOTE | 2024-01-14 23:30 | PC.NURSE ---
pt from home, a&ox4, respirations even and unlabored, pt reporting cough x1 week with intermittent chest pain; reports it worsens with cough. pt reports his gf at home is sick. pt denies sob, nausea, vomiting and diarrhea. pt medicated per mar and tolerated well.
--- NOTE | 2024-01-14 23:45 | ED.GENADULT ---
HPI - General Adult General Chief complaint: Upper Respiratory Symptoms Stated complaint: Cough/Burning sensation in stomach Time Seen by Provider: 01/14/24 22:58 Source: patient, RN notes reviewed and old records reviewed Mode of arrival: ambulatory Limitations: no limitations History of Present Illness HPI narrative: 43-year-old male presents for evaluation of chest pain He describes the pain as tingling when he takes a deep breath The pain started a couple of days ago. He reports that last week he had cough, congestion, runny nose He states his had similar symptoms the following day He thinks he may have had a virus or just allergies He denies any shortness of breath Patient also states he has had burning abdominal pain for the last 4 months since a colonoscopy/endoscopy procedure He reports he ran out of his mesalamine last week and does not see his GI doctor for 11 more days He has been trying sucralfate without any improvement No other complaints or concerns at this time Related Data Home Medications ?Medication ?Instructions ?Recorded ?Confirmed bupropion HCl 150 mg 24 hr tablet, 150 mg PO QAM 06/04/20 12/09/23 extended release naloxone 4 mg/actuation nasal spray 1 spray intranasal ONCE 04/22/22 12/09/23 buprenorphine 8 mg-naloxone 2 mg 10 mg sublingual DAILY 06/12/22 12/09/23 sublingual film docusate sodium 100 mg capsule 100 mg PO BID 03/10/23 12/09/23 mirtazapine 15 mg tablet 15 mg PO BEDTIME 03/10/23 12/09/23 cyclobenzaprine 10 mg tablet 10 mg PO TID PRN muscle spasm 04/07/23 12/09/23 duloxetine 60 mg capsule,delayed 60 mg PO DAILY 12/09/23 12/09/23 release loratadine 10 mg tablet 10 mg PO DAILY 12/09/23 12/09/23 mirtazapine 30 mg tablet 30 mg PO BEDTIME 12/09/23 12/09/23 sennosides 8.6 mg tablet (senna) 17.2 mg PO DAILY 12/09/23 12/09/23 Previous Rx's ?Medication ?Instructions ?Recorded hydroxyzine HCl 50 mg tablet 50 mg PO BEDTIME #14 tabs 04/06/22 fluticasone propionate 50 1 spray intranasal BID #16 grams 05/30/22 mcg/actuation nasal spray,suspension (Flonase Allergy Relief) ibuprofen 600 mg tablet 600 mg PO Q6H PRN pain #30 tabs 11/03/22 diclofenac sodium 1 % topical gel 4 g topical QID 30 days #100 grams 12/17/22 (Voltaren Arthritis Pain) acetaminophen 500 mg tablet 500 mg PO Q6H PRN fever or pain 03/08/23 (Tylenol Extra Strength) #14 tabs budesonide-formoterol HFA 160 2 puff inhalation BID 30 days 05/31/23 mcg-4.5 mcg/actuation aerosol #10.2 grams inhaler (Symbicort) pantoprazole 20 mg tablet,delayed 40 mg (2 x 20 mg) PO DAILY #180 05/31/23 release tabs calcium polycarbophil 625 mg 1,250 mg (2 x 625 mg) PO DAILY 30 07/14/23 tablet (Fiber Laxative (calcium days #60 tabs polycarbophil)) lactulose 20 gram/30 mL oral 20 g (30 mL) PO DAILY PRN 08/14/23 solution constipation #1,200 mL hydrocortisone 2.5 % topical cream 1 appl [place] BEDTIME PRN hemorrhoids 08/24/23 with perineal applicator #30 grams (Proctosol HC) mesalamine 0.375 gram 1.5 g (4 x 0.375 gram) PO DAILY 90 12/30/23 capsule,extended release 24 hr days #360 caps (Apriso) sucralfate 1 gram tablet 1 g PO BID #56 tabs 01/01/24 gabapentin 100 mg capsule 200 mg (2 x 100 mg) PO BEDTIME 30 01/10/24 days #60 caps mesalamine 0.375 gram 1.5 g (4 x 0.375 gram) PO DAILY 01/14/24 capsule,extended release 24 hr #60 caps Allergies Allergy/AdvReac Type Severity Reaction Status Date / Time shellfish derived Allergy Intermediate Rash Verified 01/14/24 22:05 Review of Systems Constitutional: Constitutional: Denies body ache(s), Denies chills and Denies fever(s) Eyes: Eyes: Denies blurry vision ENT: Denies sore throat Cardiovascular: Cardiovascular: Reports chest pain and Denies dyspnea Respiratory: Respiratory: Denies cough and Denies dyspnea Gastrointestinal: Gastrointestinal: Reports abdominal pain, Denies nausea and Denies vomiting Musculoskeletal: Musculoskeletal: Denies back pain Integumentary/Breasts: Skin/Breast: Denies rash PMFSH Past Medical History Medical History Fibromyalgia GERD (gastroesophageal reflux disease) Scrotal pain Rhinosinusitis 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 Mother No problems noted. Paternal Aunt Lung cancer Social History Social History Alcohol intake: never Patient Tobacco Use Status: Current everyday Tobacco user Tobacco use type: Cigarette Years Smoked: 23 Years Smoked in Last 30 Days: Yes e-Cigarette/Vaping Use: Currently Using Use of substances other than those prescribed or required for medical reasons: No Advance Directives: No Advance Directives Information Provided: Yes Current occupational status: disabled Physical Exam ED Vital Signs: Vital Signs - 24 hr 01/14/24 22:02 01/14/24 22:56 Temperature 98.1 F 97.7 F Pulse Rate 64 57 Respiratory Rate 16 16 Blood Pressure 125/71 116/67 Pulse Oximetry 97 97 Oxygen Delivery Method Room Air Room Air BMI result Body Mass Index 27.4 Const General: healthy appearing, comfortable, no acute distress, alert and awake Nutritional Appearance: well nourished Orientation/consciousness: patient oriented x3 HENMT Head: Yes normocephalic and Yes atraumatic Eyes Eyelids: Yes eyelids normal Conjunctivae: conjunctivae normal Sclerae: sclerae normal Corneas: corneas normal Pupils: Equal, round and reactive pupils present EOM: EOMs intact bilaterally Neck Neck: Yes full ROM Resp Effort & Inspection: normal respiratory effort, able to speak in complete sentences, no audible wheezes and not labored Auscultation: clear to auscultation bilaterally Cardio Rate: regular rate Rhythm: regular rhythm GI Inspection: No distended Palpation (GI): Soft to palpation, not firm, nontender, no guarding and not rigid Skin General skin exam: no rashes or lesions noted and elasticity normal Neuro General: patient oriented x3 Cranial nerves: Yes CN's II-XII intact bilaterally, Yes Equal, round and reactive pupils present and Yes Bilaterally intact EOM present Cognition (Neuro): normal cognition Extrem Other: Moving all extremities well without any obvious deformities Medications Administered Discontinued Medications Generic Name Dose Route Start Last Admin Trade Name Armandoq PRN Reason Stop Dose Admin Al Hydroxide/Mg Hydroxide 30 ml 01/14/24 23:20 01/14/24 23:27 Magnesium Hydrox/Alum Hydrox 30 Ml Oral.Susp PO 01/14/24 23:21 30 ml ONCE ONE Administration Lidocaine HCl 15 ml 01/14/24 23:20 01/14/24 23:27 Lidocaine Hcl Viscous 2 % 15 Ml Solution MUCOUS MEM 01/14/24 23:21 15 ml ONCE ONE Administration Ondansetron HCl 4 mg 01/14/24 23:20 01/14/24 23:27 Ondansetron Odt 4 Mg Tab.Rapdis TRANSLINGU 01/14/24 23:21 4 mg ONCE ONE Administration Medical Decision Making Medical Decision Making [facility] Narrative: Patient's primary complaint today is chest pain. This is burning chest pain is intermittent and 1 week after having what sounds like a viral illness. This is most likely costochondritis versus GERD chest x-ray is clear viral swabs are negative. The chest pain is reproducible. Not consistent with ACS. Patient's secondary complaint is chronic abdominal pain for the last 4 months. His abdominal exam is reassuring, he is able tolerate p.o.. He reports minimal improvement with GI cocktail. However I will refill his mesalamine which she reports has been helping until he can see his primary doctor in less than 2 weeks Differential Diagnosis Differential Diagnoses: The differential diagnosis associated with the presentation includes Chest pain Chest wall pain Upper respiratory infection Abdominal pain IBS Lab Data [facility] Lab Attestation statement: I reviewed the patient's lab results. Mild leukocytosis and mild anemia, the patient has a history of both. Normal electrolytes, renal function within normal limits. Glucose elevated to 135 01/14/24 22:10 01/14/24 22:10 Labs: Lab Results 01/14/24 Range/Units 22:10 WBC 4.2 L (4.8-10.8) X10*3/uL RBC 4.62 (4.60-5.80) X10*6/uL Hgb 13.7 L (14.0-18.0) g/dl Hct 38.5 L (42.0-52.0) % MCV 83.3 (80.0-98.0) fL MCH 29.7 (27.0-33.0) pg MCHC 35.6 (31.0-36.0) g/dl RDW 11.7 (11.0-16.0) % Plt Count 221 (160-400) X10*3/uL MPV 9.3 L (9.4-12.4) fL Immature Gran % (Auto) 0.2 (0.0-0.4) % Neut % (Auto) 48.2 (45-73) % Lymph % (Auto) 40.8 H (20-40) % [place] % (Auto) 7.0 (2-11) % Eos % (Auto) 2.6 (0-4) % Baso % (Auto) 1.2 (0-2) % Lymph # (Auto) 1.7 (1.2-4.9) X10*3/uL [place] # (Auto) 0.3 (0.1-1.2) X10*3/uL Eos # (Auto) 0.1 (0.0-0.4) X10*3/uL Baso # (Auto) 0.1 (0.0-0.2) X10*3/uL Abs Immat Gran (auto) 0.01 (0.00-0.03) X10*3/uL Absolute Neuts (auto) 2.0 (2.0-8.3) x10*3/uL Absolute Nucleated RBC 0.000 (0.0-0.012) X10*3/uL Nucleated RBC % (auto) 0.0 (0.0-0.2) /100WBC Sodium 143 (135-145) mmol/L Potassium 3.8 (3.3-5.1) mmol/L Chloride 105 (96-108) mmol/L Carbon Dioxide 29 (22-29) mmol/L Anion Gap 13 (12-20) BUN 13 (9-16) mg/dL Creatinine 1.10 (0.5-1.4) mg/dL Estim Creat Clear Calc 84.6 Estimated GFR > 60 Random Glucose 135 H (60-115) mg/dL Calcium 9.5 (8.4-10.2) mg/dL Total Bilirubin 0.5 (0.0-1.0) mg/dL AST 41 H (5-37) U/L ALT 86 H (0-40) U/L Alkaline Phosphatase 67 (39-117) U/L Total Protein 7.8 (6.5-8.0) g/dL Albumin 4.3 (3.5-5.0) g/dL Influenza Type A (PCR) NEGATIVE (Negative) Influenza Type B (PCR) NEGATIVE (Negative) RSV RNA Qual (PCR) NEGATIVE (Negative) SARS-CoV-2 RNA (RT-PCR) NEGATIVE (Negative) Independent Interpretation I performed an independent interpretation of an: Plain X-Ray (No infiltrates) Radiology Impression Discussion of test interpretation with radiology: I have reviewed the radiologist's reading. Radiologist Impression: XR/XR chest 1V IMPRESSION: Unremarkable examination. Discharge Plan Discharge Clinical Impression: Acute costochondritis, Chronic abdominal pain Patient Disposition: Home, Self-Care Instructions: Costochondritis (ED) Additional Instructions: Your workup in the ER today was reassuring. Includes your blood work, chest x-ray, viral swabs, EKG Your pain is likely related to inflammation of your ribs related to the cold you had last week I did refill your mesalamine for the next 2 week until you can see your GI doctor Return for new or worsening symptoms Prescriptions: New mesalamine 0.375 gram capsule,extended release 24hr 1.5 g PO DAILY Qty: 60 0RF No Action pantoprazole 20 mg tablet,delayed release (DR/EC) 40 mg PO DAILY Qty: 180 2RF budesonide-formoterol [Symbicort] 160-4.5 mcg/actuation HFA aerosol inhaler 2 puff inhalation BID 30 Days Qty: 10.2 11RF mesalamine [Apriso] 0.375 gram capsule,extended release 24hr 1.5 g PO DAILY 90 Days Qty: 360 0RF sucralfate 1 gram tablet 1 g PO BID Qty: 56 0RF ibuprofen 600 mg tablet 600 mg PO Q6H PRN (Reason: pain) Qty: 30 0RF hydroxyzine HCl 50 mg tablet 50 mg PO BEDTIME Qty: 14 0RF fluticasone propionate [Flonase Allergy Relief] 50 mcg/actuation spray,suspension 1 spray intranasal BID Qty: 16 0RF Rx Instructions: administer into each nostril lactulose 20 gram/30 mL solution 20 g PO DAILY PRN (Reason: constipation) Qty: 1200 0RF acetaminophen [Tylenol Extra Strength] 500 mg tablet 500 mg PO Q6H PRN (Reason: fever or pain) Qty: 14 0RF bupropion HCl 150 mg tablet extended release 24 hr 150 mg PO QAM naloxone 4 mg/actuation spray,non-aerosol 1 spray intranasal ONCE buprenorphine-naloxone 8-2 mg film 10 mg sublingual DAILY diclofenac sodium [Voltaren Arthritis Pain] 1 % gel 4 g topical QID 30 Days Qty: 100 0RF Rx Instructions: apply to single knee, ankle, foot; for foot includes sole/toes/top of foot hydrocortisone [Proctosol HC] 2.5 % cream with perineal applicator 1 appl [place] BEDTIME PRN (Reason: hemorrhoids) Qty: 30 3RF docusate sodium 100 mg capsule 100 mg PO BID mirtazapine 15 mg tablet 15 mg PO BEDTIME cyclobenzaprine 10 mg tablet 10 mg PO TID PRN (Reason: muscle spasm) calcium polycarbophil [Fiber Laxative (ca polycarbo)] 625 mg tablet 1,250 mg PO DAILY 30 Days Qty: 60 3RF duloxetine 60 mg capsule,delayed release(DR/EC) 60 mg PO DAILY mirtazapine 30 mg tablet 30 mg PO BEDTIME loratadine 10 mg tablet 10 mg PO DAILY sennosides [senna] 8.6 mg tablet 17.2 mg PO DAILY gabapentin 100 mg capsule 200 mg PO BEDTIME 30 Days Qty: 60 6RF Interventions: ED Discharge Assessment Last Done: 01/15/24 00:13 Print Language: Kiswahili
[2024-01-15 00:13] VITALS: BP 146/84; PULSE 56; RESP 15; TEMP 36.5; O2SAT 98
== END 2024-01-15 00:15 | disposition home or self-care (01) ==
PROVIDERS: Emergency Provider Emergency Medicine; PCP Internal Medicine
DX: M94.0 Chondrocostal junction syndrome [Tietze] (principal); R05.9 Cough, unspecified; R07.89 Other chest pain; R10.13 Epigastric pain; Z79.899 Other long term (current) drug therapy; Z03.818 Encounter for observation for suspected exposure to other biological agents ruled out
CPT/HCPCS: 0241U; 71045; 80053; 85025; 99283; 99284

== ENCOUNTER 2024-01-17 16:42 | Emergency (ER) | payer OTHER, SELFPAY ==
--- NOTE | 2024-01-17 16:45 | ECG_ITS ---
Test Reason : CP Blood Pressure : / mmHG Vent. Rate : 058 BPM Atrial Rate : 058 BPM P-R Int : 146 ms QRS Dur : 086 ms QT Int : 420 ms P-R-T Axes : 054 039 018 degrees QTc Int : 412 ms Sinus bradycardia Otherwise normal ECG When compared with ECG of 07-SEP-2023 16:50, No significant change was found Referred By: Generic ED Physician Electronically Signed By:BRE RUTH MD
[2024-01-17 17:22] VITALS: BP 115/78; PULSE 66; RESP 20; TEMP 36.6; O2SAT 97; BMI 27.5
[2024-01-17 17:53] LABS: MANUAL DIFF FLAG NO
[2024-01-17 18:00] LABS: Basophils Absolute Auto 0.1 X10*3/uL (0.0-0.2); Basophils Percent Auto 1.6 % (0-2); Eosinophils Absolute Auto 0.2 X10*3/uL (0.0-0.4); Hematocrit 38.9 % (42.0-52.0); Hemoglobin 13.7 g/dl (14.0-18.0); Imm Gran Abs Auto 0.01 X10*3/uL (0.00-0.03); Imm Gran Pct Auto 0.2 % (0.0-0.4); Lymphocytes Percent Auto 39.6 % (20-40); Mean Corpuscular HGB Conc 35.2 g/dl (31.0-36.0); Mean Corpuscular Hemoglobin 29.3 pg (27.0-33.0); Mean Corpuscular Volume 83.3 fL (80.0-98.0); Monocytes Absolute Auto 0.5 X10*3/uL (0.1-1.2); Monocytes Percent Auto 9.3 % (2-11); Neutrophils Absolute Auto 2.3 x10*3/uL (2.0-8.3); Neutrophils Percent Auto 46.3 % (45-73); Platelet Count 248 X10*3/uL (160-400); Red Blood Count 4.67 X10*6/uL (4.60-5.80); Red Cell Distribution Width 11.9 % (11.0-16.0)
[2024-01-17 18:09] LABS: Alanine Aminotransferase 84 U/L (0-40); Albumin Level 4.1 g/dL (3.5-5.0); Alkaline Phosphatase 68 U/L (39-117); Anion Gap 12 (12-20); Aspartate Amino Transferase 42 U/L (5-37); Bilirubin Total 0.4 mg/dL (0.0-1.0); Blood Urea Nitrogen 11 mg/dL (9-16); Calcium 9.2 mg/dL (8.4-10.2); Carbon Dioxide 26 mmol/L (22-29); Chloride 108 mmol/L (96-108); Estimated Glomerular Filt Rate > 60; Glucose Random 106 mg/dL (60-115); Lipase 30 U/L (8-78); Magnesium 2.2 mg/dL (1.6-2.6); Potassium 4.4 mmol/L (3.3-5.1); Sodium 142 mmol/L (135-145); Total Protein 7.6 g/dL (6.5-8.0)
[2024-01-17 18:15] LABS: Troponin-I High Sensitivity 5.9 ng/L (<3.5-35.0)
[2024-01-17 20:14] VITALS: BP 124/81; PULSE 51; PULSE 52; RESP 11; TEMP 36.4; O2SAT 97
--- NOTE | 2024-01-17 20:23 | ED_ITS ---
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 after and workup in the past all negative comes here for similar pain for last few days feels very anxious poor sleep the night denies any shortness of breath diaphoresis or nausea or vomiting finish pain is sharp in character reproducible increases on respiration Related Data Home Medications ?Medication ?Instructions ?Recorded ?Confirmed bupropion HCl 150 mg 24 hr tablet, 150 mg PO QAM 06/04/20 12/09/23 extended release naloxone 4 mg/actuation nasal spray 1 spray intranasal ONCE 04/22/22 12/09/23 buprenorphine 8 mg-naloxone 2 mg 10 mg sublingual DAILY 06/12/22 12/09/23 sublingual film docusate sodium 100 mg capsule 100 mg PO BID 03/10/23 12/09/23 mirtazapine 15 mg tablet 15 mg PO BEDTIME 03/10/23 12/09/23 cyclobenzaprine 10 mg tablet 10 mg PO TID PRN muscle spasm 04/07/23 12/09/23 duloxetine 60 mg capsule,delayed 60 mg PO DAILY 12/09/23 12/09/23 release loratadine 10 mg tablet 10 mg PO DAILY 12/09/23 12/09/23 mirtazapine 30 mg tablet 30 mg PO BEDTIME 12/09/23 12/09/23 sennosides 8.6 mg tablet (senna) 17.2 mg PO DAILY 12/09/23 12/09/23 Previous Rx's ?Medication ?Instructions ?Recorded hydroxyzine HCl 50 mg tablet 50 mg PO BEDTIME #14 tabs 04/06/22 fluticasone propionate 50 1 spray intranasal BID #16 grams 05/30/22 mcg/actuation nasal spray,suspension (Flonase Allergy Relief) ibuprofen 600 mg tablet 600 mg PO Q6H PRN pain #30 tabs 11/03/22 diclofenac sodium 1 % topical gel 4 g topical QID 30 days #100 grams 12/17/22 (Voltaren Arthritis Pain) acetaminophen 500 mg tablet 500 mg PO Q6H PRN fever or pain 03/08/23 (Tylenol Extra Strength) #14 tabs budesonide-formoterol HFA 160 2 puff inhalation BID 30 days 05/31/23 mcg-4.5 mcg/actuation aerosol #10.2 grams inhaler (Symbicort) pantoprazole 20 mg tablet,delayed 40 mg (2 x 20 mg) PO DAILY #180 05/31/23 release tabs calcium polycarbophil 625 mg 1,250 mg (2 x 625 mg) PO DAILY 30 07/14/23 tablet (Fiber Laxative (calcium days #60 tabs polycarbophil)) lactulose 20 gram/30 mL oral 20 g (30 mL) PO DAILY PRN 08/14/23 solution constipation #1,200 mL hydrocortisone 2.5 % topical cream 1 appl [place] BEDTIME PRN hemorrhoids 08/24/23 with perineal applicator #30 grams (Proctosol HC) mesalamine 0.375 gram 1.5 g (4 x 0.375 gram) PO DAILY 90 12/30/23 capsule,extended release 24 hr days #360 caps (Apriso) sucralfate 1 gram tablet 1 g PO BID #56 tabs 01/01/24 gabapentin 100 mg capsule 200 mg (2 x 100 mg) PO BEDTIME 30 01/10/24 days #60 caps mesalamine 0.375 gram 1.5 g (4 x 0.375 gram) PO DAILY 01/14/24 capsule,extended release 24 hr #60 caps clonazepam 0.5 mg tablet (Klonopin) 0.5 mg PO BEDTIME PRN 01/17/24 anxiety/sleep #10 tabs Allergies Allergy/AdvReac Type Severity Reaction Status Date / Time shellfish derived Allergy Intermediate Rash Verified 01/17/24 17:25 Review of Systems 2 Review of Systems: Yes all other systems are reviewed and are negative [facility] Past Medical History Medical History Fibromyalgia GERD (gastroesophageal reflux disease) Scrotal pain Rhinosinusitis 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 Mother No problems noted. Paternal Aunt Lung cancer Social History Social History Alcohol intake: never Patient Tobacco Use Status: Current everyday Tobacco user Tobacco use type: Cigarette Years Smoked: 23 Years Smoked in Last 30 Days: Yes e-Cigarette/Vaping Use: Currently Using Use of substances other than those prescribed or required for medical reasons: No Advance Directives: No Advance Directives Information Provided: No Do you have a plan to hurt others: No Plan Current occupational status: disabled Physical Exam 2 Vital Signs: Vital Signs: Last Vital Signs Temp 97.8 F 01/17/24 20:49 Pulse 55 01/17/24 20:49 Resp 14 01/17/24 20:49 BP 106/72 01/17/24 20:49 Pulse Ox 99 01/17/24 20:49 O2 Del Method Room Air 01/17/24 20:49 BMI result Body Mass Index 27.5 Const: Other: Appearance: Alert. Oriented X3. No acute distress. Anxious Eyes: PERRLA, No Nystagmus ENT: Pharynx normal. Oral Mucosa moist Neck: Normal inspection. Neck supple. CVS: Normal heart rate and rhythm. Pulses normal. Respiratory: No respiratory distress. Equal air entry bilateral, no wheezing/rales/rhonchi Abdomen: Soft and nontender. Bowel sounds are present, no mass palpable, no CVA tenderness Skin: Skin warm and dry. Normal skin color. Normal skin turgor. Extremities: No lower extremity edema. No calf tenderness Neuro: Oriented X 3. No motor deficit. No sensory deficit.No cerebellar signs , cranial nerves II-XII intact Medical Decision Making Differential Diagnosis Differential Diagnoses: The differential diagnosis associated with the presentation includes Anxiety/atypical chest pain/ACS Lab Data MDM Lab Attestation statement: I reviewed the patient's lab results. 01/17/24 17:50 01/17/24 17:50 Labs: Lab Results 01/17/24 Range/Units 17:50 WBC 5.0 (4.8-10.8) X10*3/uL RBC 4.67 (4.60-5.80) X10*6/uL Hgb 13.7 L (14.0-18.0) g/dl Hct 38.9 L (42.0-52.0) % MCV 83.3 (80.0-98.0) fL MCH 29.3 (27.0-33.0) pg MCHC 35.2 (31.0-36.0) g/dl RDW 11.9 (11.0-16.0) % Plt Count 248 (160-400) X10*3/uL MPV 9.0 L (9.4-12.4) fL Immature Gran % (Auto) 0.2 (0.0-0.4) % Neut % (Auto) 46.3 (45-73) % Lymph % (Auto) 39.6 (20-40) % [place] % (Auto) 9.3 (2-11) % Eos % (Auto) 3.0 (0-4) % Baso % (Auto) 1.6 (0-2) % Lymph # (Auto) 2.0 (1.2-4.9) X10*3/uL [place] # (Auto) 0.5 (0.1-1.2) X10*3/uL Eos # (Auto) 0.2 (0.0-0.4) X10*3/uL Baso # (Auto) 0.1 (0.0-0.2) X10*3/uL Abs Immat Gran (auto) 0.01 (0.00-0.03) X10*3/uL Absolute Neuts (auto) 2.3 (2.0-8.3) x10*3/uL Absolute Nucleated RBC 0.000 (0.0-0.012) X10*3/uL Nucleated RBC % (auto) 0.0 (0.0-0.2) /100WBC Sodium 142 (135-145) mmol/L Potassium 4.4 (3.3-5.1) mmol/L Chloride 108 (96-108) mmol/L Carbon Dioxide 26 (22-29) mmol/L Anion Gap 12 (12-20) BUN 11 (9-16) mg/dL Creatinine 1.00 (0.5-1.4) mg/dL Estim Creat Clear Calc 90.0 Estimated GFR > 60 Random Glucose 106 (60-115) mg/dL Calcium 9.2 (8.4-10.2) mg/dL Magnesium 2.2 (1.6-2.6) mg/dL Total Bilirubin 0.4 (0.0-1.0) mg/dL AST 42 H (5-37) U/L ALT 84 H (0-40) U/L Alkaline Phosphatase 68 (39-117) U/L Troponin I High Sens 5.9 D (<3.5-35.0) ng/L Total Protein 7.6 (6.5-8.0) g/dL Albumin 4.1 (3.5-5.0) g/dL Lipase 30 (8-78) U/L Independent Interpretation I performed an independent interpretation of an: EKG Interpretation: Normal sinus rhythm sinus bradycardia heart rate 58 beats per minute normal interval normal axis no acute ST-T changes no acute ischemia Discharge Plan Discharge Clinical Impression: Anxiety Patient Disposition: Home, Self-Care Instructions: Anxiety (ED) Additional Instructions: Take medication to relax as prescribed at night Continue medication for your acid reflux as prescribed by cleaning team member Decreased caffeine intake Follow-up with your therapist Prescriptions: New clonazepam [Klonopin] 0.5 mg tablet 0.5 mg PO BEDTIME PRN (Reason: anxiety/sleep) Qty: 10 0RF Rx Instructions: administer 30 minutes before bedtime No Action pantoprazole 20 mg tablet,delayed release (DR/EC) 40 mg PO DAILY Qty: 180 2RF budesonide-formoterol [Symbicort] 160-4.5 mcg/actuation HFA aerosol inhaler 2 puff inhalation BID 30 Days Qty: 10.2 11RF mesalamine [Apriso] 0.375 gram capsule,extended release 24hr 1.5 g PO DAILY 90 Days Qty: 360 0RF sucralfate 1 gram tablet 1 g PO BID Qty: 56 0RF ibuprofen 600 mg tablet 600 mg PO Q6H PRN (Reason: pain) Qty: 30 0RF hydroxyzine HCl 50 mg tablet 50 mg PO BEDTIME Qty: 14 0RF fluticasone propionate [Flonase Allergy Relief] 50 mcg/actuation spray,suspension 1 spray intranasal BID Qty: 16 0RF Rx Instructions: administer into each nostril lactulose 20 gram/30 mL solution 20 g PO DAILY PRN (Reason: constipation) Qty: 1200 0RF mesalamine 0.375 gram capsule,extended release 24hr 1.5 g PO DAILY Qty: 60 0RF acetaminophen [Tylenol Extra Strength] 500 mg tablet 500 mg PO Q6H PRN (Reason: fever or pain) Qty: 14 0RF bupropion HCl 150 mg tablet extended release 24 hr 150 mg PO QAM naloxone 4 mg/actuation spray,non-aerosol 1 spray intranasal ONCE buprenorphine-naloxone 8-2 mg film 10 mg sublingual DAILY diclofenac sodium [Voltaren Arthritis Pain] 1 % gel 4 g topical QID 30 Days Qty: 100 0RF Rx Instructions: apply to single knee, ankle, foot; for foot includes sole/toes/top of foot hydrocortisone [Proctosol HC] 2.5 % cream with perineal applicator 1 appl [place] BEDTIME PRN (Reason: hemorrhoids) Qty: 30 3RF docusate sodium 100 mg capsule 100 mg PO BID mirtazapine 15 mg tablet 15 mg PO BEDTIME cyclobenzaprine 10 mg tablet 10 mg PO TID PRN (Reason: muscle spasm) calcium polycarbophil [Fiber Laxative (ca polycarbo)] 625 mg tablet 1,250 mg PO DAILY 30 Days Qty: 60 3RF duloxetine 60 mg capsule,delayed release(DR/EC) 60 mg PO DAILY mirtazapine 30 mg tablet 30 mg PO BEDTIME loratadine 10 mg tablet 10 mg PO DAILY sennosides [senna] 8.6 mg tablet 17.2 mg PO DAILY gabapentin 100 mg capsule 200 mg PO BEDTIME 30 Days Qty: 60 6RF Interventions: ED Discharge Assessment Last Done: 01/17/24 20:49 Discharge Date/Time: 01/17/24 20:52 Print Language: Swedish
[2024-01-17 20:49] VITALS: BP 106/72; PULSE 55; RESP 14; TEMP 36.6; O2SAT 99
== END 2024-01-17 20:52 | disposition home or self-care (01) ==
PROVIDERS: Emergency Provider Internal Medicine; PCP Internal Medicine
DX: F41.9 Anxiety disorder, unspecified (principal); R07.89 Other chest pain; R10.9 Unspecified abdominal pain; Z79.899 Other long term (current) drug therapy; F17.210 Nicotine dependence, cigarettes, uncomplicated
CPT/HCPCS: 36415; 80053; 83690; 83735; 84484; 85025; 93005; 99283; 99285

== ENCOUNTER → 2024-01-17 16:45 | Outpatient (BNV) | payer OTHER, SELFPAY | PROVIDERS: Emergency Provider Internal Medicine; PCP Internal Medicine; Visit Provider Internal Medicine Cardiovascular Disease | DX: R00.1 Bradycardia, unspecified (principal) | CPT/HCPCS: 93010 ==

== ENCOUNTER 2024-01-26 14:45 | Outpatient (AMB) | payer OTHER, SELFPAY ==
--- NOTE | 2024-01-26 14:52 | A.OFFVIS_ITS ---
Vital Signs 01/26/24 14:55 Weight 170 lb BP 113/73 Blood Pressure Location Lt brachial Position Sitting Pulse 68 Intake Visit Reasons: colitis Intake Note: patient follow up for Colitis Patient cc: after Endoscopy procedures patient become with abdominal burning and air on his stomach, also he is complaining about constipation with some bloody internal hemorrhoids on ad off. 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 Accompanied by: Self / Same As Patient Allergies shellfish derived Allergy (Intermediate, Verified 02/03/24 07:26) Rash HPI HPI colitis: Details: LAST VISIT WITH SHAUN CAMPBELL DECEMBER 2023 Plan Apriso 4 tabs fecal lucio 4 wks- repeat Orders: Orders Calprotectin, Fecal 1 Month K52.9 - Noninfective gastroenteritis and colitis, unspecified, R19.5 - Other fecal abnormalities, R19.7 - Diarrhea, unspecified Medications: New mesalamine ER (Apriso) 1.5 grams (4 x 0.375 gram) PO DAILY 120 caps 0RF 30 days Patient Instructions: Apriso 4 tabs fecal lucio 4 wks- repeat TODAY'S VISIT Patient is here for follow-up. Patient reports that his symptoms continue to be aggravating as he has epigastric pain postprandially. Feels like pantoprazole is not working. Denies any nausea or vomiting. Denies melena, hematochezia. Patient is very anxious and stressed out about the way he is feeling. His symptoms are worse at bedtime. 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 Mother No problems noted. Paternal Aunt Lung cancer Social History Alcohol intake: never Patient Tobacco Use Status: Current everyday Tobacco user Tobacco use type: Cigarette Years Smoked: 23 Years e-Cigarette/Vaping Use: Currently Using Advance Directives: No Advance Directives Information Provided: Yes Do you have a plan to hurt others: No Plan Current occupational status: disabled Review of Systems Const Denies weight gain and Denies weight loss ENT Reports no additional complaints, Denies dysphagia and Denies odynophagia Card Reports no additional complaints Resp Reports no additional complaints GI Reports abdominal pain (Epigastric), Denies belching, Denies melena, Reports bloating, Denies change in bowel habits, Reports constipation, Denies dysphagia, Denies excessive flatus, Denies dyspepsia, Denies heartburn, Denies diarrhea, Denies loose stools, Denies nausea, Denies odynophagia and Denies vomiting Reports no additional complaints Musc Reports no additional complaints Neuro Reports no additional complaints Psych Reports no additional complaints Endo Reports no additional complaints Physical Exam Vital Signs: Last Vital Signs Pulse 68 01/26/24 14:55 BP 113/73 01/26/24 14:55 Const General: healthy appearing, no acute distress and well developed Nutritional Appearance: well nourished Orientation/consciousness: patient oriented x3 Resp Effort & Inspection: normal respiratory effort, able to speak in complete sentences, no tracheal deviation and symmetric chest movement Auscultation: clear to auscultation bilaterally Cardio Rate: regular rate GI Inspection: Yes normal to inspection and No distended Palpation (GI): Soft to palpation, not firm, nontender and No hepatosplenomegaly present Auscultation: normal bowel sounds General: Yes no CVA tenderness Back/Spine/Pelvis Back: no CVA tenderness Skin General skin exam: elasticity normal, turgor normal and dry skin Neuro General: patient oriented x3 Psych Appearance: grossly normal Mental Status: mental status grossly normal Assessment & Plan Assessment & Plan (1) Colitis: Comment: Again reviewed procedure report, pathology recommendation Code(s): K52.9 - Noninfective gastroenteritis and colitis, unspecified Category: Medical (2) High fecal calprotectin: Code(s): R19.5 - Other fecal abnormalities Category: Medical (3) Acid reflux: Code(s): K21.9 - Gastro-esophageal reflux disease without esophagitis Category: Medical Qualifiers: Esophagitis presence: esophagitis presence not specified Qualified Code(s): K21.9 - Gastro-esophageal reflux disease without esophagitis (4) Postprandial epigastric pain: Code(s): R10.13 - Epigastric pain Plan Will check for H pylori, lipase, pancreatic elastase, transglutaminase. Will order abdominal ultrasound. Patient will follow-up with his GI provider. Discussed with patient avoiding dietary triggers and late night snacking. Staying upright for minimum 3 hours after meals discussed with patient. He is agreeable to this plan and verbalizes understanding of instructions. He was given the opportunity to ask questions and all questions answered. Thank you for allowing me to participate in his care Orders: Orders H pylori Ag Stool 01/26/24 K21.9 - Gastro-esophageal reflux disease without esophagitis Lipase 02/02/24 R10.9 - Unspecified abdominal pain Transglutaminase IgA 02/02/24 R10.9 - Unspecified abdominal pain US abdomen comp w elastography 01/26/24 R79.89 - Other specified abnormal findings of blood chemistry Pancreatic Elastase-1 01/26/24 R10.9 - Unspecified abdominal pain Transglutaminase Ab IgG 02/02/24 R10.9 - Unspecified abdominal pain Medications: New esomeprazole magnesium (Nexium) 40 mg PO DAILY 30 caps 5RF K21.9 - Gastro- esophageal reflux disease without esophagitis Changed From sucralfate 1 g PO BID 56 tabs 0RF To sucralfate 1 g PO BEDTIME 90 tabs 0RF Discontinued pantoprazole Discontinued Reason: Patient no longer taking 40 mg (2 x 20 mg) PO DAILY 180 tabs 2RF Coding Level of Care Code Est Pt Level 4 (89853) Diagnoses Colitis K52.9 High fecal calprotectin R19.5 Gastroesophageal reflux disease, unspecified whether esophagitis present K21.9 Esophagitis presence: esophagitis presence not specified Postprandial epigastric pain R10.13 Time Spent (min) 40 Comment 25 minutes spent with patient and additional 15 minutes spent reviewing his records
[2024-01-26 14:55] VITALS: BP 113/73; PULSE 68
== END 2024-01-26 15:41 | disposition home or self-care (01) ==
PROVIDERS: PCP Internal Medicine; Visit Provider Physician Assistant
DX: K52.9 Noninfective gastroenteritis and colitis, unspecified (principal); R19.5 Other fecal abnormalities; K21.9 Gastro-esophageal reflux disease without esophagitis; R10.13 Epigastric pain
CPT/HCPCS: 99214

== ENCOUNTER → 2024-01-26 14:45 | Outpatient (BNVA) | payer OTHER, SELFPAY | PROVIDERS: PCP Internal Medicine; Visit Provider Physician Assistant | DX: K21.9 Gastro-esophageal reflux disease without esophagitis (principal); K52.9 Noninfective gastroenteritis and colitis, unspecified; R10.13 Epigastric pain; R19.5 Other fecal abnormalities | CPT/HCPCS: 99212 ==

== ENCOUNTER 2024-02-01 05:14 | Emergency (ER) | payer OTHER, SELFPAY ==
--- NOTE | 2024-02-01 | ECG_ITS ---
Test Reason : CHEST PAIN Blood Pressure : / mmHG Vent. Rate : 061 BPM Atrial Rate : 061 BPM P-R Int : 144 ms QRS Dur : 090 ms QT Int : 420 ms P-R-T Axes : 048 045 014 degrees QTc Int : 422 ms Normal sinus rhythm Normal ECG When compared with ECG of 17-JAN-2024 16:46, No significant change was found Referred By: Generic ED Physician Electronically Signed By:MINI HERNANDEZ
--- NOTE | ~2024-02-01 | CT_ITS ---
EXAMINATION: CT ANGIOGRAM OF THE CHEST WITH AND WITHOUT CONTRAST (CT PULMONARY ANGIOGRAM FOR PE) CLINICAL INFORMATION: Reason for Exam elevated d-dimer. cp/sob COMPARISON: CT PE study 01/06/2023 and 04/06/2022 TECHNIQUE: Prior to contrast administration, noncontrast localization images were obtained. Subsequently, multidetector volumetric imaging was performed from the thoracic inlet to below the diaphragms following the administration of 65 mL Omnipaque 350 intravenous contrast. No contrast reaction reported Sagittal, coronal, and MIP oblique sagittal reformatted images were obtained on the CT workstation, uploaded to PACS, and reviewed. This CT examination was performed using dose optimization techniques as appropriate, variously including the following: *Automated exposure control *Adjustment of mA and/or kV according to patient size (this includes techniques or standardized protocols for targeted exams where dose is matched to indication/reason for exam; i.e. extremities or head) *Use of iterative reconstruction technique Total exam dose-length product 220 mGy-cm FINDINGS: QUALITY OF STUDY/CONTRAST BOLUS: Satisfactory. PULMONARY ARTERIES: No pulmonary emboli. THORACIC AORTA: No aneurysm. LUNG: Again seen are emphysematous a number of small pulmonary nodules which are unchanged. For example 4 mm nodule left upper lobe (7:120 compare prior 8:146 along with a 6 mm lingular nodule (7: 2:15 compare prior 8:243). No new or worrisome lung nodules are seen PLEURA: No pleural effusion or pneumothorax. MEDIASTINUM: Normal heart size. No pericardial effusion. There are prominent right hilar lymph nodes present which are unchanged with the largest measuring 2.3 x 1.8 x 1.1 cm (7:163). Most of the other nodes contain calcium. There is a 1.8 x 1.1 x 2.3 cm preaortic lymph node which is mildly larger than previous with when measurements were 1.4 x 0.7 x 1.6 cm. (See rogers images) No evidence of septal bowing or right heart strain. CORONARY ARTERY CALCIFICATION: None visualized on this study. CHEST WALL/AXILLA: No axillary or internal mammary lymphadenopathy. OSSEOUS STRUCTURES: No acute or suspicious osseous abnormality. UPPER ABDOMEN: The liver is likely enlarged with hepatic steatosis as seen previously. No reflux of contrast into the hepatic veins to suggest elevated right heart pressures. CT/CT angio chest PE protocol IMPRESSION: 1. No evidence of pulmonary emboli. 2. Stable pulmonary nodules and emphysema. 3. Stable prominent right hilar lymph nodes. Increasing size of a single preaortic lymph node. VTE: negative.
--- NOTE | ~2024-02-01 | XR_ITS ---
EXAMINATION: XR CHEST CLINICAL INFORMATION: Chest pain COMPARISON: 01/14/2024 TECHNIQUE: Frontal view of the chest was obtained. FINDINGS: The lungs are clear with no focal consolidation. No evidence of pneumothorax, pulmonary edema, or pleural effusions. The cardiomediastinal silhouette is unremarkable. No acute osseous findings. XR/XR chest 1V IMPRESSION: No acute cardiopulmonary findings.
[2024-02-01 05:32] VITALS: BP 128/78; PULSE 58; RESP 12; TEMP 36.7; O2SAT 100; BMI 29.6
[2024-02-01 05:35] LABS: Basophils Absolute Auto 0.1 X10*3/uL (0.0-0.2); Basophils Percent Auto 1.5 % (0-2); Eosinophils Absolute Auto 0.2 X10*3/uL (0.0-0.4); Eosinophils Percent Auto 3.4 % (0-4); Hematocrit 37.1 % (42.0-52.0); Hemoglobin 13.2 g/dl (14.0-18.0); Imm Gran Abs Auto 0.01 X10*3/uL (0.00-0.03); Imm Gran Pct Auto 0.2 % (0.0-0.4); Lymphocytes Absolute Auto 2.6 X10*3/uL (1.2-4.9); Lymphocytes Percent Auto 49.8 % (20-40); MANUAL DIFF FLAG NO; Mean Corpuscular HGB Conc 35.6 g/dl (31.0-36.0); Mean Corpuscular Hemoglobin 29.4 pg (27.0-33.0); Mean Corpuscular Volume 82.6 fL (80.0-98.0); Mean Platelet Volume 9.3 fL (9.4-12.4); Monocytes Absolute Auto 0.5 X10*3/uL (0.1-1.2); Monocytes Percent Auto 9.4 % (2-11); Neutrophils Absolute Auto 1.9 x10*3/uL (2.0-8.3); Neutrophils Percent Auto 35.7 % (45-73); Platelet Count 195 X10*3/uL (160-400); Red Blood Count 4.49 X10*6/uL (4.60-5.80); Red Cell Distribution Width 12.1 % (11.0-16.0); White Blood Count 5.2 X10*3/uL (4.8-10.8)
[2024-02-01 05:42] LABS: D Dimer High Sensitivity 265 NG/ML
[2024-02-01 05:49] LABS: Alanine Aminotransferase 97 U/L (0-40); Alkaline Phosphatase 72 U/L (39-117); Anion Gap 13 (12-20); Aspartate Amino Transferase 46 U/L (5-37); Bilirubin Total 0.5 mg/dL (0.0-1.0); Blood Urea Nitrogen 11 mg/dL (9-16); Calcium 8.9 mg/dL (8.4-10.2); Carbon Dioxide 27 mmol/L (22-29); Chloride 107 mmol/L (96-108); Creatinine Clr Calc Pharmacy 103.6; Estimated Glomerular Filt Rate > 60; Glucose Random 118 mg/dL (60-115); Potassium 3.5 mmol/L (3.3-5.1); Sodium 143 mmol/L (135-145); Total Protein 7.1 g/dL (6.5-8.0)
[2024-02-01 05:56] LABS: Troponin-I High Sensitivity 7.1 ng/L (<3.5-35.0)
--- NOTE | 2024-02-01 06:29 | ED.CHESTPAIN ---
HPI - Chest Pain General Chief Complaint: Chest Pain Stated Complaint: chest pain, dizzy Time Seen by Provider: 02/01/24 06:29 Source: patient, RN notes reviewed and old records reviewed Mode of arrival: ambulatory History of Present Illness ED Provider: Herminia Hameed PA-C HPI narrative: 43-year-old male with a past medical history GERD, fibromyalgia, anxiety, presenting to the ED complaining of acute on chronic substernal chest pain, SOB, palpitations, headache x 3 years. Reports symptoms worse when trying to go to sleep. Also reports lightheadedness. Denies fever, chills, cough, pedal edema, recent travel, history of clots, cigarette smoking. Admits currently takes Suboxone, denies other drug use. Related Data Home Medications ?Medication ?Instructions ?Recorded ?Confirmed bupropion HCl 150 mg 24 hr tablet, 150 mg PO QAM 06/04/20 12/09/23 extended release naloxone 4 mg/actuation nasal spray 1 spray intranasal ONCE 04/22/22 12/09/23 buprenorphine 8 mg-naloxone 2 mg 10 mg sublingual DAILY 06/12/22 12/09/23 sublingual film docusate sodium 100 mg capsule 100 mg PO BID 03/10/23 12/09/23 mirtazapine 15 mg tablet 15 mg PO BEDTIME 03/10/23 12/09/23 cyclobenzaprine 10 mg tablet 10 mg PO TID PRN muscle spasm 04/07/23 12/09/23 duloxetine 60 mg capsule,delayed 60 mg PO DAILY 12/09/23 12/09/23 release loratadine 10 mg tablet 10 mg PO DAILY 12/09/23 12/09/23 mirtazapine 30 mg tablet 30 mg PO BEDTIME 12/09/23 12/09/23 Previous Rx's ?Medication ?Instructions ?Recorded hydroxyzine HCl 50 mg tablet 50 mg PO BEDTIME #14 tabs 04/06/22 fluticasone propionate 50 1 spray intranasal BID #16 grams 05/30/22 mcg/actuation nasal spray,suspension (Flonase Allergy Relief) ibuprofen 600 mg tablet 600 mg PO Q6H PRN pain #30 tabs 11/03/22 diclofenac sodium 1 % topical gel 4 g topical QID 30 days #100 grams 12/17/22 (Voltaren Arthritis Pain) acetaminophen 500 mg tablet 500 mg PO Q6H PRN fever or pain 03/08/23 (Tylenol Extra Strength) #14 tabs budesonide-formoterol HFA 160 2 puff inhalation BID 30 days 05/31/23 mcg-4.5 mcg/actuation aerosol #10.2 grams inhaler (Symbicort) calcium polycarbophil 625 mg 1,250 mg (2 x 625 mg) PO DAILY 30 07/14/23 tablet (Fiber Laxative (calcium days #60 tabs polycarbophil)) lactulose 20 gram/30 mL oral 20 g (30 mL) PO DAILY PRN 08/14/23 solution constipation #1,200 mL hydrocortisone 2.5 % topical cream 1 appl GA BEDTIME PRN hemorrhoids 08/24/23 with perineal applicator #30 grams (Proctosol HC) mesalamine 0.375 gram 1.5 g (4 x 0.375 gram) PO DAILY 90 12/30/23 capsule,extended release 24 hr days #360 caps (Apriso) gabapentin 100 mg capsule 200 mg (2 x 100 mg) PO BEDTIME 30 01/10/24 days #60 caps mesalamine 0.375 gram 1.5 g (4 x 0.375 gram) PO DAILY 01/14/24 capsule,extended release 24 hr #60 caps clonazepam 0.5 mg tablet (Klonopin) 0.5 mg PO BEDTIME PRN 01/17/24 anxiety/sleep #10 tabs esomeprazole magnesium 40 mg 40 mg PO DAILY #30 caps 01/26/24 capsule,delayed release (Nexium) sucralfate 1 gram tablet 1 g PO BEDTIME #90 tabs 01/26/24 Allergies Allergy/AdvReac Type Severity Reaction Status Date / Time shellfish derived Allergy Intermediate Rash Verified 02/01/24 05:34 Review of Systems Review of Systems: Constitutional: No Fever, No Chills ENT/Mouth: No Ear Pain, No Nasal Congestion, No Rhinorrhea, No Swallowing Difficulty Cardiovascular: + Chest Pain, + SOB, + palpitations Respiratory: No Cough, No Sputum, No Wheezing Gastrointestinal: No Nausea, No Vomiting, No Diarrhea, No Constipation, No Abdominal pain Musculoskeletal: No joint pain, No Myalgias, No Joint Swelling Skin: No Skin Lesions, No rash Neuro: No Weakness, + lightheaded Yes all other systems are reviewed and are negative Constitutional: Constitutional: Reports as per [facility] Past Medical History Attestation statement: The following information was validated with the patient. 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 Mother No problems noted. Paternal Aunt Lung cancer Social History Social History Alcohol intake: never Patient Tobacco Use Status: Current everyday Tobacco user Tobacco use type: Cigarette Years Smoked: 23 Years e-Cigarette/Vaping Use: Currently Using Current occupational status: disabled Physical Exam Vital Signs: Vital Signs: Last Vital Signs Temp 97.8 F 02/01/24 10:11 Pulse 60 02/01/24 10:11 Resp 16 02/01/24 10:11 BP 127/83 02/01/24 10:11 Pulse Ox 98 02/01/24 10:11 O2 Del Method Room Air 02/01/24 10:11 BMI result Body Mass Index 29.6 Const: General: cooperative, healthy appearing and no acute distress Orientation/consciousness: patient oriented x3 Limitations: no limitations HEENT: Head: Yes normal to inspection and Yes atraumatic Ears: hearing grossly normal bilaterally General nose exam: Normal external nose present Face and sinus: Yes normal facial exam Eyes: General: appearance normal, both eyes and all related structures EOM: EOMs intact bilaterally Neck: Neck: Yes normal visual inspection and Yes no meningeal signs Resp: Effort & Inspection: normal respiratory effort and no respiratory distress Auscultation: clear to auscultation bilaterally, no crackles, no rhonchi and no wheezes Cardio: Rate: regular rate Heart sounds: S1 normal heart sound present and S2 normal heart sound present GI: Inspection: Yes normal to inspection Palpation (GI): Soft to palpation, nontender, no guarding and not rigid : General: Yes no CVA tenderness Back/Spine/Pelvis: Back: no CVA tenderness Skin: Rashes: no rashes Wounds: no wounds Neuro: General: patient oriented x3, tone normal and no meningeal signs Cranial nerves: Yes CN's II-XII intact bilaterally Gait exam (Neuro): Normal gait present Extrem: General: Yes normal to inspection and No edema Course Course Course Narrative: -0659--D-dimer ordered by nursing and elevated to 265 > will obtain CTA to rule out PE -labs otherwise reassuring /at patient's baseline, troponin 7.1 > will obtain 3 hour repeat -0915--repeat trope without rise, [place] unlikely -53--COVID/flu/RSV negative. Chest x-ray unremarkable CT angio chest PE protocol IMPRESSION: 1. No evidence of pulmonary emboli. 2. Stable pulmonary nodules and emphysema. 3. Stable prominent right hilar lymph nodes. Increasing size of a single preaortic lymph node. VTE: negative. Results discussed with patient including worrisome signs and symptoms and strict return precautions, and when to return to the emergency department. They verbalized understanding and feel safe for discharge at this time. Medications Administered Discontinued Medications Generic Name Dose Route Start Last Admin Trade Name Freq PRN Reason Stop Dose Admin Iohexol 100 ml 02/01/24 08:19 02/01/24 08:20 Iohexol 350 Mg/Ml 100 Ml Infus..Btl IV 02/01/24 08:20 65 ml ONCE ONE Administration Medical Decision Making Medical Decision Making MDM Narrative: 43-year-old male with a past medical history GERD, fibromyalgia, anxiety, presenting to the ED complaining of acute on chronic substernal chest pain, SOB, palpitations, headache x 3 years. On exam vital signs stable, NAD, nontoxic appearing, lungs CTA, no pedal edema, no focal neuro deficits. Concern for anxiety/panic attack vs ACS vs metabolic abnormalities vs thyroid disorder vs viral syndrome. Rule out pneumonia/other infectious etiology. PE lower on differential due to duration of symptoms. Rule out pericarditis/myocarditis Plan: EKG, labs, CXR, viral studies Please refer to course for remaining clinical decision making, interpretation of labs/imaging results, and discussions with consultants and/or family members. Differential Diagnosis Differential Diagnoses: The differential diagnosis associated with the presentation includes As above Admission/Observation Consideration of admission/observation: Escalation of care including admission/observation considered Lab Data MDM Lab Attestation statement: I reviewed the patient's lab results. 02/01/24 05:28 02/01/24 05:28 Labs: Lab Results 02/01/24 02/01/24 02/01/24 Range/Units 05: 08:24 09:47 WBC 5.2 (4.8-10.8) X10*3/uL RBC 4.49 L (4.60-5.80) X10*6/uL Hgb 13.2 L (14.0-18.0) g/dl Hct 37.1 L (42.0-52.0) % MCV 82.6 (80.0-98.0) fL MCH 29.4 (27.0-33.0) pg MCHC 35.6 (31.0-36.0) g/dl RDW 12.1 (11.0-16.0) % Plt Count 195 (160-400) X10*3/uL MPV 9.3 L (9.4-12.4) fL Immature Gran % (Auto) 0.2 (0.0-0.4) % Neut % (Auto) 35.7 L (45-73) % Lymph % (Auto) 49.8 H (20-40) % [place] % (Auto) 9.4 (2-11) % Eos % (Auto) 3.4 (0-4) % Baso % (Auto) 1.5 (0-2) % Lymph # (Auto) 2.6 (1.2-4.9) X10*3/uL [place] # (Auto) 0.5 (0.1-1.2) X10*3/uL Eos # (Auto) 0.2 (0.0-0.4) X10*3/uL Baso # (Auto) 0.1 (0.0-0.2) X10*3/uL Abs Immat Gran (auto) 0.01 (0.00-0.03) X10*3/uL Absolute Neuts (auto) 1.9 L (2.0-8.3) x10*3/uL Absolute Nucleated RBC 0.000 (0.0-0.012) X10*3/uL Nucleated RBC % (auto) 0.0 (0.0-0.2) /100WBC PT 12.0 (11.1-13.3) SEC INR 1.0 (0.9-1.1) D-Dimer High Sensitivty 265 NG/ML Sodium 143 (135-145) mmol/L Potassium 3.5 D (3.3-5.1) mmol/L Chloride 107 (96-108) mmol/L Carbon Dioxide 27 (22-29) mmol/L Anion Gap 13 (12-20) BUN 11 (9-16) mg/dL Creatinine 0.93 (0.5-1.4) mg/dL Estim Creat Clear Calc 103.6 Estimated GFR > 60 Random Glucose 118 H (60-115) mg/dL Calcium 8.9 (8.4-10.2) mg/dL Magnesium 2.0 (1.6-2.6) mg/dL Total Bilirubin 0.5 (0.0-1.0) mg/dL AST 46 H (5-37) U/L ALT 97 H (0-40) U/L Alkaline Phosphatase 72 (39-117) U/L Troponin I High Sens 7.1 8.5 (<3.5-35.0) ng/L Total Protein 7.1 (6.5-8.0) g/dL Albumin 4.0 (3.5-5.0) g/dL TSH 3.33 (0.32-4.0) uIU/mL Urine Opiates Screen Not Detected (Not Detect) Ur Buprenorphine Scrn Positive H (Not Detect) ng/mL Ur Oxycodone Screen Not Detected (Not Detect) ng/mL Urine Methadone Screen Not Detected (Not Detect) ng/mL Urine Fentanyl Screen Not Detected (Not Detect) Ur Barbiturates Screen Not Detected (Not Detect) Ur Phencyclidine Scrn Not Detected (Not Detect) Ur Amphetamines Screen Not Detected (Not Detect) U Benzodiazepines Scrn Not Detected (Not Detect) Urine Cocaine Screen Not Detected (Not Detect) U Marijuana (THC) Screen Not Detected (Not Detect) Influenza Type A (PCR) NEGATIVE (Negative) Influenza Type B (PCR) NEGATIVE (Negative) RSV RNA Qual (PCR) NEGATIVE (Negative) SARS-CoV-2 RNA (RT-PCR) NEGATIVE (Negative) Independent Interpretation I performed an independent interpretation of an: EKG (My interpretation EKG normal sinus rhythm rate of 61. GA interval 144. QTC 422. No STEMI) Radiology Impression Discussion of test interpretation with radiology: I have reviewed the radiologist's reading. External Record Review External record reviewed: Inpatient record, Office record, Outpatient record, Prior outpatient labs, Prior outpatient radiology, Primary care record and Outside ED record Tests considered The following testing was considered but not selected: As above Prescription Management I considered prescription management with: Other Discharge Plan Discharge Clinical Impression: Chest pain, Palpitations Patient Disposition: Home, Self-Care Instructions: Chest Pain (DC), Heart Palpitations (DC) Additional Instructions: Your workup was reassuring. Please follow-up with your doctor as well as Cardiology. You do have some lymph nodes in your chest they appreciate on CT scan please follow-up with your doctor in regards to this If your symptoms persist or worsening constant worsening chest pain/shortness of breath return to the ED Prescriptions: No Action budesonide-formoterol [Symbicort] 160-4.5 mcg/actuation HFA aerosol inhaler 2 puff inhalation BID 30 Days Qty: 10.2 11RF mesalamine [Apriso] 0.375 gram capsule,extended release 24hr 1.5 g PO DAILY 90 Days Qty: 360 0RF ibuprofen 600 mg tablet 600 mg PO Q6H PRN (Reason: pain) Qty: 30 0RF hydroxyzine HCl 50 mg tablet 50 mg PO BEDTIME Qty: 14 0RF fluticasone propionate [Flonase Allergy Relief] 50 mcg/actuation spray,suspension 1 spray intranasal BID Qty: 16 0RF Rx Instructions: administer into each nostril lactulose 20 gram/30 mL solution 20 g PO DAILY PRN (Reason: constipation) Qty: 1200 0RF mesalamine 0.375 gram capsule,extended release 24hr 1.5 g PO DAILY Qty: 60 0RF clonazepam [Klonopin] 0.5 mg tablet 0.5 mg PO BEDTIME PRN (Reason: anxiety/sleep) Qty: 10 0RF Rx Instructions: administer 30 minutes before bedtime acetaminophen [Tylenol Extra Strength] 500 mg tablet 500 mg PO Q6H PRN (Reason: fever or pain) Qty: 14 0RF bupropion HCl 150 mg tablet extended release 24 hr 150 mg PO QAM naloxone 4 mg/actuation spray,non-aerosol 1 spray intranasal ONCE buprenorphine-naloxone 8-2 mg film 10 mg sublingual DAILY diclofenac sodium [Voltaren Arthritis Pain] 1 % gel 4 g topical QID 30 Days Qty: 100 0RF Rx Instructions: apply to single knee, ankle, foot; for foot includes sole/toes/top of foot hydrocortisone [Proctosol HC] 2.5 % cream with perineal applicator 1 appl GA BEDTIME PRN (Reason: hemorrhoids) Qty: 30 3RF sucralfate 1 gram tablet 1 g PO BEDTIME Qty: 90 0RF esomeprazole magnesium [Nexium] 40 mg capsule,delayed release(DR/EC) 40 mg PO DAILY Qty: 30 5RF docusate sodium 100 mg capsule 100 mg PO BID mirtazapine 15 mg tablet 15 mg PO BEDTIME cyclobenzaprine 10 mg tablet 10 mg PO TID PRN (Reason: muscle spasm) calcium polycarbophil [Fiber Laxative (ca polycarbo)] 625 mg tablet 1,250 mg PO DAILY 30 Days Qty: 60 3RF duloxetine 60 mg capsule,delayed release(DR/EC) 60 mg PO DAILY mirtazapine 30 mg tablet 30 mg PO BEDTIME loratadine 10 mg tablet 10 mg PO DAILY gabapentin 100 mg capsule 200 mg PO BEDTIME 30 Days Qty: 60 6RF Referrals: [facility] [Provider Group] Rik Flaherty MD [Primary Care Provider] - Interventions: ED Discharge Assessment Last Done: 02/01/24 10:11 Discharge Date/Time: 02/01/24 10:12 Print Language: Cam[place]onian
[2024-02-01 06:37] VITALS: BP 129/74; PULSE 53; RESP 16; TEMP 36.4; O2SAT 96
[2024-02-01 08:00] LABS: TSH reflex Free T4 3.33 uIU/mL (0.32-4.0)
[2024-02-01] MEDS: iohexoL 350 MG/ML 100 ML INFUS..BTL IV (08:20)
[2024-02-01 08:33] VITALS: BP 157/82; PULSE 53; RESP 16; TEMP 36.6; O2SAT 98
[2024-02-01 08:57] LABS: Troponin-I High Sensitivity 8.5 ng/L (<3.5-35.0)
[2024-02-01 09:08] LABS: Influenza A PCR NEGATIVE (Negative); Influenza B PCR NEGATIVE (Negative); Resp Syncy Virus RNA Qual PCR NEGATIVE (Negative); SARS COV2 PCR INHOUSE NEGATIVE (Negative)
[2024-02-01 09:45] VITALS: BP 148/73; PULSE 54; RESP 18; O2SAT 98
--- NOTE | 2024-02-01 09:53 | PC.NURSE ---
pt is alert and oriented, skin appropriate for ethnicity, respirations even and unlabored, ls clear, pt denies chest pain at this time, but does report that at times he feels this weird almost like pinching/fluttering feeling in the midsternal chest area, pt's vs stable and sinus durga on the monitor
[2024-02-01 10:11] VITALS: BP 127/83; PULSE 60; RESP 16; TEMP 36.6; O2SAT 98
[2024-02-01 10:16] LABS: Amphetamine Screen Urine Not Detected (Not Detect); Barbiturates, Urine Not Detected (Not Detect); Benzodiazepines Screen Urine Not Detected (Not Detect); Buprenorphine Scr Positive (Not Detect); Cannabinoid Screen Urine Not Detected (Not Detect); Cocaine Screen Urine Not Detected (Not Detect); Fentanyl, urine Not Detected (Not Detect); Methadone Screen, Urine Not Detected (Not Detect); Opiate Screen Urine Not Detected (Not Detect); Oxycodone Screen Urine Not Detected (Not Detect); Phencyclidine Screen Urine Not Detected (Not Detect)
== END 2024-02-01 10:12 | disposition home or self-care (01) ==
PROVIDERS: Physician Assistant; Emergency Provider Emergency Medicine; PCP Internal Medicine
DX: R07.9 Chest pain, unspecified (principal); R00.2 Palpitations; R06.02 Shortness of breath; R51.9 Headache, unspecified; Z79.899 Other long term (current) drug therapy; Z03.818 Encounter for observation for suspected exposure to other biological agents ruled out
CPT/HCPCS: 0241U; 36415; 71045; 71275; 80053; 80307; 83735; 84443; 84484; 85025; 85379; 85610; 93005; 99284; 99285; Q9967

== ENCOUNTER → 2024-02-01 05:22 | Outpatient (BNV) | payer OTHER, SELFPAY | PROVIDERS: Emergency Provider Emergency Medicine; PCP Internal Medicine; Visit Provider Internal Medicine | DX: R07.9 Chest pain, unspecified (principal) | CPT/HCPCS: 93010 ==

== ENCOUNTER 2024-02-02 09:46 | Outpatient (REF) | payer OTHER, SELFPAY ==
[2024-02-02 10:45] LABS: MANUAL DIFF FLAG NO
[2024-02-02 11:56] LABS: Basophils Absolute Auto 0.1 X10*3/uL (0.0-0.2); Basophils Percent Auto 1.4 % (0-2); Eosinophils Absolute Auto 0.2 X10*3/uL (0.0-0.4); Eosinophils Percent Auto 3.8 % (0-4); Hematocrit 40.5 % (42.0-52.0); Hemoglobin 13.9 g/dl (14.0-18.0); Imm Gran Abs Auto 0.01 X10*3/uL (0.00-0.03); Imm Gran Pct Auto 0.2 % (0.0-0.4); Lymphocytes Absolute Auto 1.9 X10*3/uL (1.2-4.9); Lymphocytes Percent Auto 37.1 % (20-40); Mean Corpuscular HGB Conc 34.3 g/dl (31.0-36.0); Mean Corpuscular Hemoglobin 29.3 pg (27.0-33.0); Mean Corpuscular Volume 85.4 fL (80.0-98.0); Monocytes Absolute Auto 0.4 X10*3/uL (0.1-1.2); Monocytes Percent Auto 7.4 % (2-11); Neutrophils Absolute Auto 2.5 x10*3/uL (2.0-8.3); Neutrophils Percent Auto 50.1 % (45-73); Platelet Count 205 X10*3/uL (160-400); Red Blood Count 4.74 X10*6/uL (4.60-5.80); Red Cell Distribution Width 12.2 % (11.0-16.0)
[2024-02-02 12:40] LABS: Alanine Aminotransferase 96 U/L (0-40); Alkaline Phosphatase 69 U/L (39-117); Anion Gap 12 (12-20); Aspartate Amino Transferase 41 U/L (5-37); Bilirubin Total 0.4 mg/dL (0.0-1.0); Blood Urea Nitrogen 7 mg/dL (9-16); Calcium 9.2 mg/dL (8.4-10.2); Carbon Dioxide 29 mmol/L (22-29); Chloride 108 mmol/L (96-108); Estimated Glomerular Filt Rate > 60; Glucose Random 106 mg/dL (60-115); Lipase 25 U/L (8-78); Potassium 3.5 mmol/L (3.3-5.1); Sodium 145 mmol/L (135-145); Total Protein 7.2 g/dL (6.5-8.0)
[2024-02-02 12:58] LABS: Ferritin 143 ng/mL (20-250)
[2024-02-04 20:18] LABS: Transglutaminase Ab IgG <1.0 U/mL; Transglutaminase IgA <1.0 U/mL
== END 2024-02-02 09:47 | disposition home or self-care (01) ==
LOC: HO.LAB 09:46
PROVIDERS: Absent Provider Physician Assistant; PCP Internal Medicine; Referring Provider Nurse Practitioner Family; Visit Provider Hospitalist
DX: J44.9 Chronic obstructive pulmonary disease, unspecified (principal); J31.0 Chronic rhinitis; J32.9 Chronic sinusitis, unspecified; J34.2 Deviated nasal septum; R91.1 Solitary pulmonary nodule; R59.0 Localized enlarged lymph nodes; R06.02 Shortness of breath; R10.9 Unspecified abdominal pain; R74.01 Elevation of levels of liver transaminase levels; D64.9 Anemia, unspecified; G47.9 Sleep disorder, unspecified; Z86.16 Personal history of COVID-19
CPT/HCPCS: 36415; 80053; 82728; 83690; 85025; 86364; 99212

== ENCOUNTER 2024-02-02 09:46 | Outpatient (AMB) | payer OTHER, SELFPAY ==
[2024-02-02 09:56] VITALS: PULSE 63; O2SAT 98; BMI 27.6
--- NOTE | 2024-02-02 09:56 | A.OFFVIS_ITS ---
Vital Signs 02/02/24 09:56 Height 5 ft 6 in Weight 171 lb BMI 27.6 Pulse 63 Pulse Source Pulse Oximeter Pulse Oximetry (%) 98 Oxygen Delivery Method Room Air Intake Visit Reasons: Shortness of breath Strap Cutter Required: No Allergies shellfish derived Allergy (Intermediate, Verified 02/02/24 09:58) Rash HPI Comments Details: The patient is a 43-year-old gentleman previously healthy who apparently was in her usual state health until back in September when he has developed COVID. The COVID infection was not very severe. Subsequently after that he has had some odd sensations in his substernal area and chest area. Feels like he has episodic shortness of breath with cough and palpitations. he has been evaluated multiple times in the ER. He did have a CT scan of the chest of 1 point in the beginning April of this year. Ruled out pulmonary emboli. The patient did have just a small amount of emphysema but otherwise no other significant findings noted. His blood work all has been pretty reassuring as well. He did have a cardiac workup including a stress test and an echo without any significant abnormalities. Yet his symptoms are severe enough for him to go to the ER for medical advice because he feels like he is going . he was given a short-acting beta agonist at 1 point but it only resulting worsening palpitations and tremulousness so therefore he stop it. 06/12/2022 the patient is here for pulmonary follow-up visit. He continues to have symptoms of dyspnea on exertion. He did try the Flovent although he did not see any significant improvement. Will go ahead and switch over to Symbicort. I am hopeful that does not cause much tremulousness or palpitations. The patient 1 puff at a time. in the meantime the patient also complains of significant nasal congestion. In part this is making it difficult for him to breathe. I do believe that a big component of his shortness breath is likely from upper airway obstruction issues. He did undergo a CT scan of the sinuses demonstrating with the septum with some other chronic changes. Will go ahead and place the patient on Sudafed the hope the tolerated and also nasal therapy. Wound time also put in a referral in for ENT 1 to further evaluate his deviated septum. Patient also has been having daytime drowsiness. His [place] score is elevated 07/30. Did undergo home sleep study which we personally reviewed in the office demonstrating no evidence of any sleep apnea. Explained to the patient that the test is not 100%. If the patient continues symptomatic we can always consider in-lab study. 12/17/2022 the patient is here for a pulmonary follow-up visit. Overall he is doing better from a respiratory status. He is responding well to the Symbicort. He has not followed up with ENT. She does use his nasal therapies as needed seems to be doing a little better as well. In addition to that she is complaining of chest discomfort. Bilateral primarily closer to the armpit area. He went to the ER twice for. [place] to be musculoskeletal. He was given ibuprofen. I did reassure him that it seems to be likely due to a muscle strain while trying to move a heavy object. The patient did have a chest x-ray which I personally reviewed demonstrating no acute disease. Otherwise patient is without any other complaints. 01/10/2024 the patient is here for a pulmonary follow-up visit. Overall doing well from a respiratory status. He still has a Symbicort although he does use it as needed. Has not used it recently. He is still having episodes of and anxiety and panic attacks. The episodes still caused him to have some shortness of breath. The usually subside. He has had a Holter monitor for about 4 days. No evidence of any tachycardia or palpitations. Or arrhythmias. Although she did have a reaction to the tape and caused him to have significant skin issues for some time. He has not interested in having another 1 or considering an event monitor. The patient does not have any recent imaging studies. We did talk about the methacholine challenge. He did not have it. At this point he has a clinical diagnosis of asthma. It would have to be confirmed with a methacholine challenge. Will continue the current inhalers as prescribed. In the meantime having difficulty sleeping. He was prescribed gabapentin 100 mg. Does not seem to be enough. I will go ahead and increase it to 200 mg an hour before sleep. If is still not enough is able to take 300 mg and he can always call so I can adjust the dose. Patient follow-up in 6 months. 02/02/2024 the patient is here for a hospital follow-up visit. She had another episode where he was having significant shortness breath anxiety. He went to the ER. In the ER he had a workup including a CTA. He had multiple pulmonary nodules noted. He also had lymphadenopathy noted with some calcifications. Seems that the findings have been stable noted before though the hilar lymph nodes appear to be moderate size. Could represent a conditions such as sarcoidosis. Current the patient is doing better. He had a cardiac workup and was pretty much nondiagnostic. He will use his inhalers whenever he has an episode like the 1 he had brought him to the ER. Will go ahead and repeat the CT scan prior to his next visit in July. If his lymph nodes are still elevated which probably will be will talk about diagnostic interventions to further address the airways. 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 Mother No problems noted. Paternal Aunt Lung cancer Social History Alcohol intake: never Patient Tobacco Use Status: Current everyday Tobacco user Tobacco use type: Cigarette Years Smoked: 23 Years e-Cigarette/Vaping Use: Currently Using Current occupational status: disabled Review of Systems Const Reports daytime sleepiness, Reports difficulty sleeping and Denies fever(s) Eyes Denies loss of vision ENT Denies dizziness, Denies hearing loss, Reports nasal congestion and Reports nasal discharge Card Denies claudication, Denies leg edema, Denies lightheadedness, Reports palp itations, Reports dyspnea, Reports dyspnea on exertion, Denies orthopnea and Denies other (Loss of consciousness) Resp Denies excessive phlegm production, Reports dyspnea and Reports dyspnea on exertion GI Denies abdominal pain, Denies hematochezia, Denies change in bowel habits, Denies nausea and Denies vomiting Denies dysuria and Denies urinary frequency Musc Reports myalgias, Denies arthralgias, Denies muscle weakness and Denies numbness Skin/Breast Denies nail changes and Denies rash Neuro Denies Abnormal speech present, Denies dizziness, Denies loss of vision, Denies memory loss and Denies numbness Psych Reports anxiety, Denies depression and Denies memory loss Endo Reports palpitations Thor/Lymph Denies easy bruising and Denies other (Anemia) Physical Exam Vital Signs: Last Vital Signs Pulse 63 02/02/24 09:56 Pulse Ox 98 02/02/24 09:56 Oxygen Delivery Method Room Air 02/02/24 09:56 BMI result Body Mass Index 27.6 Const General: comfortable and no acute distress Orientation/consciousness: patient oriented x3 HEENT Other: Unremarkable Head: Yes normal to inspection Neck Neck: Yes normal visual inspection Chest Chest palpation & inspection: normal inspection of the chest Resp Effort & Inspection: normal respiratory effort Auscultation: clear to auscultation bilaterally Cardio Heart sounds: S1 normal heart sound present, S2 normal heart sound present, no gallops, no murmurs and no rubs GI Palpation (GI): Soft to palpation Back/Spine/Pelvis Other: unremarkable Skin General skin exam: no rashes or lesions noted Neuro General: patient oriented x3 Speech: No Abnormal speech present Extrem General: Yes normal to inspection Psych Mental Status: mental status grossly normal Results Reviewed Results Reviewed: [address] [address] [address] Scan Report Signed Patient: Cody Shepard MR#: [id number] : 1980 Acct:[id number] Age/Sex: 43 / M ADM Date: 02/01/24 Loc: .ED Attending Dr: Ordering Physician: Herminia Hameed Date of Service: 02/01/24 Procedure(s): CT angio chest PE protocol Accession Number(s): [id number] cc: Rik Flaherty MD; Herminia Hameed~ EXAMINATION: CT ANGIOGRAM OF THE CHEST WITH AND WITHOUT CONTRAST (CT PULMONARY ANGIOGRAM FOR PE) CLINICAL INFORMATION: Reason for Exam elevated d-dimer. cp/sob COMPARISON: CT PE study 01/06/2023 and 04/06/2022 TECHNIQUE: Prior to contrast administration, noncontrast localization images were obtained. Subsequently, multidetector volumetric imaging was performed from the thoracic inlet to below the diaphragms following the administration of 65 mL Omnipaque 350 intravenous contrast. No contrast reaction reported Sagittal, coronal, and MIP oblique sagittal reformatted images were obtained on the CT workstation, uploaded to PACS, and reviewed. This CT examination was performed using dose optimization techniques as appropriate, variously including the following: *Automated exposure control *Adjustment of mA and/or kV according to patient size (this includes techniques or standardized protocols for targeted exams where dose is matched to indication/reason for exam; i.e. extremities or head) *Use of iterative reconstruction technique Total exam dose-length product 220 mGy-cm FINDINGS: QUALITY OF STUDY/CONTRAST BOLUS: Satisfactory. PULMONARY ARTERIES: No pulmonary emboli. THORACIC AORTA: No aneurysm. LUNG: Again seen are emphysematous a number of small pulmonary nodules which are unchanged. For example 4 mm nodule left upper lobe (7:120 compare prior 8:146 along with a 6 mm lingular nodule (7: 2:15 compare prior 8:243). No new or worrisome lung nodules are seen PLEURA: No pleural effusion or pneumothorax. MEDIASTINUM: Normal heart size. No pericardial effusion. There are prominent right hilar lymph nodes present which are unchanged with the largest measuring 2.3 x 1.8 x 1.1 cm (7:163). Most of the other nodes contain calcium. There is a 1.8 x 1.1 x 2.3 cm preaortic lymph node which is mildly larger than previous with when measurements were 1.4 x 0.7 x 1.6 cm. (See rogers images) No evidence of septal bowing or right heart strain. CORONARY ARTERY CALCIFICATION: None visualized on this study. CHEST WALL/AXILLA: No axillary or internal mammary lymphadenopathy. OSSEOUS STRUCTURES: No acute or suspicious osseous abnormality. UPPER ABDOMEN: The liver is likely enlarged with hepatic steatosis as seen previously. No reflux of contrast into the hepatic veins to suggest elevated right heart pressures. CT/CT angio chest PE protocol IMPRESSION: 1. No evidence of pulmonary emboli. 2. Stable pulmonary nodules and emphysema. 3. Stable prominent right hilar lymph nodes. Increasing size of a single preaortic lymph node. VTE: negative. Dictated By: Jaison Carbone MD Signed By: <Electronically signed by Jaison Carbone MD in OV> 02/01/2415 DD/ TD/TT: Glaze Supervisor: KIMBERLY Assessment & Plan Assessment & Plan (1) SOB (shortness of breath): Code(s): R06.02 - Shortness of breath Category: Medical (2) Rhinosinusitis: Code(s): J31.0 - Chronic rhinitis; J32.9 - Chronic sinusitis, unspecified Category: Medical (3) Deviated nasal bone: Code(s): J34.2 - Deviated nasal septum Category: Medical (4) Sleep disturbance: Code(s): G47.9 - Sleep disorder, unspecified Category: Medical (5) Pulmonary nodule: Code(s): R91.1 - Solitary pulmonary nodule Category: Medical (6) Hilar lymphadenopathy: Code(s): R59.0 - Localized enlarged lymph nodes Category: Medical Plan NAWAF as needed continue Zyrtec gabapentin 200mg QHD Repeat CT chest with IV contrast in 5-6 months will stop vaping F/U 6 months Orders: Orders Angiotensin Converting Enzyme Today R91.1 - Solitary pulmonary nodule CT chest w IV con 07/07/24 R59.0 - Localized enlarged lymph nodes, R91.1 - Solitary pulmonary nodule Liver Panel Today R91.1 - Solitary pulmonary nodule Complete Blood Count Auto Diff Today R91.1 - Solitary pulmonary nodule VICKIE Reflex Titer and Pattern Today R91.1 - Solitary pulmonary nodule Erythrocyte Sedimentation Rate Today R91.1 - Solitary pulmonary nodule Anti DNA DS Antibody Today R91.1 - Solitary pulmonary nodule Immunoglobulin E Today R91.1 - Solitary pulmonary nodule T Spot TB Today R91.1 - Solitary pulmonary nodule Medications: Refilled budesonide-formoterol 160-4.5 mcg/actuation (Symbicort) 2 puffs inhalation BID 30 days 10.2 grams 11RF J44.9 - Chronic obstructive pulmonary disease, unspecified Coding Level of Care Code Est Pt Level 4 (97032) Diagnoses SOB (shortness of breath) R06.02 Rhinosinusitis J31.0; J32.9 Deviated nasal bone J34.2 Sleep disturbance G47.9 Pulmonary nodule R91.1 Hilar lymphadenopathy R59.0 Time Spent (min) 18
== END 2024-02-02 10:20 | disposition home or self-care (01) ==
PROVIDERS: PCP Internal Medicine; Visit Provider Hospitalist
DX: R06.02 Shortness of breath (principal); J31.0 Chronic rhinitis; J32.9 Chronic sinusitis, unspecified; J34.2 Deviated nasal septum; G47.9 Sleep disorder, unspecified; R91.1 Solitary pulmonary nodule; R59.0 Localized enlarged lymph nodes
CPT/HCPCS: 99214

== ENCOUNTER 2024-02-03 07:05 | Emergency (ER) | payer OTHER, SELFPAY ==
[2024-02-03 07:12] VITALS: BP 135/78; PULSE 60; O2SAT 98
[2024-02-03 07:22] VITALS: BP 125/71; PULSE 61; RESP 16; TEMP 36.6; O2SAT 97; BMI 27.6
--- NOTE | 2024-02-03 07:41 | ED_ITS ---
HPI - General Adult General Chief complaint: General Medical Stated complaint: HEAD/CHEST PRESSURE,HIGH BP 170/100 PER EMS Time Seen by Provider: 02/03/24 07:10 Source: patient, EMS and old records reviewed Mode of arrival: EMS Limitations: no limitations History of Present Illness ED Provider: MELVIN HPI narrative: 43 yo male with anxiety, dyspnea, heart palpitations who has been seen and worked up for many issues over the past few years and has just lost his therapist but has a psychiatrist. He is taking suboxone regularly given prior tramadol addiction, GERD medications, started on anxiety medications but they are not helping. He called 911 this AM for feeling terrible all night with palpitations, stress, tightness in chest which has been going on x 3 years worse with driving and when we talk about it he notes that this has been going on for 3 years since he found his brother in law and his brother in law was a brother to him. He started to cry and I asked him if he was told he had PTSD he he states he doesn't know what that is and that he is being treated for anxiety. MD complaint: stress, anxiety, funny feeling in chest Onset (ago): year(s) (3) Location: chest Radiation: non-radiation Severity: moderate Pain Consistency: intermittent Relieving factors: none Exacerbating factors: other Associated symptoms: chest pain, headaches and loss of appetite Treatments prior to arrival: none Related Data Home Medications ?Medication ?Instructions ?Recorded ?Confirmed bupropion HCl 150 mg 24 hr tablet, 150 mg PO QAM 06/04/20 12/09/23 extended release naloxone 4 mg/actuation nasal spray 1 spray intranasal ONCE 04/22/22 12/09/23 buprenorphine 8 mg-naloxone 2 mg 10 mg sublingual DAILY 06/12/22 12/09/23 sublingual film docusate sodium 100 mg capsule 100 mg PO BID 03/10/23 12/09/23 mirtazapine 15 mg tablet 15 mg PO BEDTIME 03/10/23 12/09/23 cyclobenzaprine 10 mg tablet 10 mg PO TID PRN muscle spasm 04/07/23 12/09/23 duloxetine 60 mg capsule,delayed 60 mg PO DAILY 12/09/23 12/09/23 release loratadine 10 mg tablet 10 mg PO DAILY 04/04/24 04/04/24 mirtazapine 30 mg tablet 30 mg PO BEDTIME 12/09/23 12/09/23 varenicline 1 mg tablet mg PO 02/02/24 Previous Rx's ?Medication ?Instructions ?Recorded hydroxyzine HCl 50 mg tablet 50 mg PO BEDTIME #14 tabs 04/06/22 fluticasone propionate 50 1 spray intranasal BID #16 grams 05/30/22 mcg/actuation nasal spray,suspension (Flonase Allergy Relief) ibuprofen 600 mg tablet 600 mg PO Q6H PRN pain #30 tabs 11/03/22 diclofenac sodium 1 % topical gel 4 g topical QID 30 days #100 grams 12/17/22 (Voltaren Arthritis Pain) acetaminophen 500 mg tablet 500 mg PO Q6H PRN fever or pain 03/08/23 (Tylenol Extra Strength) #14 tabs calcium polycarbophil 625 mg 1,250 mg (2 x 625 mg) PO DAILY 30 07/14/23 tablet (Fiber Laxative (calcium days #60 tabs polycarbophil)) lactulose 20 gram/30 mL oral 20 g (30 mL) PO DAILY PRN 08/14/23 solution constipation #1,200 mL hydrocortisone 2.5 % topical cream 1 appl IA BEDTIME PRN hemorrhoids 08/24/23 with perineal applicator #30 grams (Proctosol HC) mesalamine 0.375 gram 1.5 g (4 x 0.375 gram) PO DAILY 90 12/30/23 capsule,extended release 24 hr days #360 caps (Apriso) gabapentin 100 mg capsule 200 mg (2 x 100 mg) PO BEDTIME 30 01/10/24 days #60 caps mesalamine 0.375 gram 1.5 g (4 x 0.375 gram) PO DAILY 01/14/24 capsule,extended release 24 hr #60 caps clonazepam 0.5 mg tablet (Klonopin) 0.5 mg PO BEDTIME PRN 01/17/24 anxiety/sleep #10 tabs esomeprazole magnesium 40 mg 40 mg PO DAILY #30 caps 01/26/24 capsule,delayed release (Nexium) sucralfate 1 gram tablet 1 g PO BEDTIME #90 tabs 01/26/24 budesonide-formoterol HFA 160 2 puff inhalation BID 30 days 02/02/24 mcg-4.5 mcg/actuation aerosol #10.2 grams inhaler (Symbicort) Allergies Allergy/AdvReac Type Severity Reaction Status Date / Time shellfish derived Allergy Intermediate Rash Verified 02/03/24 07:26 Review of Systems Review of Systems: Constitutional : No Fever, No Chills ENT/Mouth : No Ear Pain, No Nasal Congestion, No sore throat Eyes: No Eye Pain, No Swelling, No Redness Cardiovascular : pos Chest Pain, pos SOB Respiratory : No Cough, No Sputum, No Dyspnea Gastrointestinal : No Nausea, No Vomiting, No Diarrhea, No Hematochezia, No Melena Genitourinary : No Dysuria, No Urinary Frequency, No Hematuria Musculoskeletal : No Myalgias Skin : No Skin Lesions, No rash Neuro : No Weakness, No Numbness, No Paresthesias, No Dizziness, No Headache Psych : positive Anxiety, positive Depression, no SI/HI Heme/Lymph: No Lymphadenopathy Endocrine : No Polyuria, No Polydipsia All other systems reviewed and are negative PMFSH Past Medical History Attestation statement: The following information was validated with the patient. Source: old records reviewed Medical History Hilar lymphadenopathy Fibromyalgia GERD (gastroesophageal reflux disease) Scrotal pain Rhinosinusitis Deviated nasal bone [id number] syndrome COVID-19 Anxiety Surgical History History of esophagogastroduodenoscopy (EGD) Hx of colonoscopy History of cornea transplant Family History Family History Father No problems noted. Mother No problems noted. Paternal Aunt Lung cancer Social History Social History Alcohol intake: never Patient Tobacco Use Status: Current everyday Tobacco user Tobacco use type: Cigarette Years Smoked: 23 Years e-Cigarette/Vaping Use: Currently Using Advance Directives: No Advance Directives Information Provided: Yes Do you have a plan to hurt others: No Plan Current occupational status: disabled Physical Exam ED Vital Signs: Vital Signs - 24 hr 02/03/24 07:22 Temperature 98 F Pulse Rate 61 Respiratory Rate 16 Blood Pressure 125/71 Pulse Oximetry 97 Oxygen Delivery Method Room Air BMI result Body Mass Index 27.6 Appearance: Alert. Oriented X3. No acute distress. tearful and anxious Eyes: Pupils equal, round and reactive to light. ENT: Pharynx normal. Neck: Normal inspection. Neck supple. CVS: Normal heart rate and rhythm. Pulses normal. Respiratory: No respiratory distress. Breath sounds normal. Abdomen: Soft and nontender. Skin: Skin warm and dry. Normal skin color. Normal skin turgor. Extremities: No lower extremity edema. No calf ttp Neuro: Oriented X 3. No motor deficit. No sensory deficit. Course Course Course Narrative: patient upset about his chest pain but he has had 3 CBC this month, two negative troponin, 2 negative EKG, 2 normal CXR, 1 negative CTA of chest there is no need for repeat chest pain work up that he has had for 3 years. Medical Decision Making Medical Decision Making MDM Narrative: 43 yo male with anxiety, dyspnea, heart palpitations here with c/o poor sleeping, palpitations, not sleeping, not able to work he has a therapist who is releasing him due to a family conflict and he has a psychiatrist but it is just for medications. He presents with repeat visits for same and has already been medicallly cleared at this time I am going to obtain CARE team consult as this is his 4th visit in a month time and he has been here several times in the past year likely untreated PTSD. Differential Diagnosis Differential Diagnoses: The differential diagnosis associated with the presentation includes anxiety, PTSD Admission/Observation Consideration of admission/observation: Escalation of care including admission/observation considered discussed with CARE team stable for DC at this time Consult Healthcare Provider Management of the patient was discussed with: Behavioral Health Provider Lab Data Labs: Lab Results 02/03/24 Range/Units 08:01 Urine Opiates Screen Not Detected (Not Detect) Ur Buprenorphine Scrn Positive H (Not Detect) ng/mL Ur Oxycodone Screen Not Detected (Not Detect) ng/mL Urine Methadone Screen Not Detected (Not Detect) ng/mL Urine Fentanyl Screen Not Detected (Not Detect) Ur Barbiturates Screen Not Detected (Not Detect) Ur Phencyclidine Scrn Not Detected (Not Detect) Ur Amphetamines Screen Not Detected (Not Detect) U Benzodiazepines Scrn Not Detected (Not Detect) Urine Cocaine Screen Not Detected (Not Detect) U Marijuana (THC) Screen Not Detected (Not Detect) Independent Historian Clinical information obtained from an independent historian. History obtained from or confirmed by: EMS External Record Review External record reviewed: Inpatient record Discharge Plan Discharge Clinical Impression: Panic attacks Patient Disposition: Home, Self-Care Instructions: Panic Attack (ED) Additional Instructions: you have to take your medications to see if this helps. please follow up with [facility]. you have had multiple medical work ups in the past that have been reassuring in the ED. please try the anxiety medication prescribed to you to see if it helps this could take a couple of weeks. Prescriptions: No Action mesalamine [Apriso] 0.375 gram capsule,extended release 24hr 1.5 g PO DAILY 90 Days Qty: 360 0RF ibuprofen 600 mg tablet 600 mg PO Q6H PRN (Reason: pain) Qty: 30 0RF hydroxyzine HCl 50 mg tablet 50 mg PO BEDTIME Qty: 14 0RF fluticasone propionate [Flonase Allergy Relief] 50 mcg/actuation spray,suspension 1 spray intranasal BID Qty: 16 0RF Rx Instructions: administer into each nostril lactulose 20 gram/30 mL solution 20 g PO DAILY PRN (Reason: constipation) Qty: 1200 0RF mesalamine 0.375 gram capsule,extended release 24hr 1.5 g PO DAILY Qty: 60 0RF clonazepam [Klonopin] 0.5 mg tablet 0.5 mg PO BEDTIME PRN (Reason: anxiety/sleep) Qty: 10 0RF Rx Instructions: administer 30 minutes before bedtime acetaminophen [Tylenol Extra Strength] 500 mg tablet 500 mg PO Q6H PRN (Reason: fever or pain) Qty: 14 0RF bupropion HCl 150 mg tablet extended release 24 hr 150 mg PO QAM naloxone 4 mg/actuation spray,non-aerosol 1 spray intranasal ONCE buprenorphine-naloxone 8-2 mg film 10 mg sublingual DAILY diclofenac sodium [Voltaren Arthritis Pain] 1 % gel 4 g topical QID 30 Days Qty: 100 0RF Rx Instructions: apply to single knee, ankle, foot; for foot includes sole/toes/top of foot hydrocortisone [Proctosol HC] 2.5 % cream with perineal applicator 1 appl IA BEDTIME PRN (Reason: hemorrhoids) Qty: 30 3RF sucralfate 1 gram tablet 1 g PO BEDTIME Qty: 90 0RF esomeprazole magnesium [Nexium] 40 mg capsule,delayed release(DR/EC) 40 mg PO DAILY Qty: 30 5RF varenicline 1 mg tablet PO budesonide-formoterol [Symbicort] 160-4.5 mcg/actuation HFA aerosol inhaler 2 puff inhalation BID 30 Days Qty: 10.2 11RF docusate sodium 100 mg capsule 100 mg PO BID mirtazapine 15 mg tablet 15 mg PO BEDTIME cyclobenzaprine 10 mg tablet 10 mg PO TID PRN (Reason: muscle spasm) calcium polycarbophil [Fiber Laxative (ca polycarbo)] 625 mg tablet 1,250 mg PO DAILY 30 Days Qty: 60 3RF duloxetine 60 mg capsule,delayed release(DR/EC) 60 mg PO DAILY mirtazapine 30 mg tablet 30 mg PO BEDTIME loratadine 10 mg tablet 10 mg PO DAILY gabapentin 100 mg capsule 200 mg PO BEDTIME 30 Days Qty: 60 6RF Print Language: [place]
--- OUTSIDE RECORDS SUMMARY | 2024-02-03 07:58 | XMS_ITS | Continuity of Care Document ---
Author Organization [facility] ter Address [address] [place] [address]- Care Team Providers Care Lead Performance Support Analyst Name Role Phone Not on Staff, PCP Primary Care Physician Unavail able Encounter [facility] Date(s): 12/31/22 - 12/31/[address] [address]- Discharge Disposition: A-D/C Walkout Attending Physician: Not on Staff, Attending MD Admitting Physician: Not on Staff, Admitting MD Referring Physician: Not on Staff, Referring MD Allergies, Adverse Reactions, Alerts No Known Allergies Vital Signs Most recent to oldest [Reference Range]: 1 2 Weight 80 kg (12/31/22 1:59 AM) 80 kg (12/31/22 1:55 AM) Oxygen Saturation [94-100 %] 97 % (12/31/22 1:55 AM) Pulse Rate [55-90 bpm] 56 bpm (12/31/22 1:55 AM) Blood Pressure [90-138/55-84 mm Hg] 143/ 88mm Hg *H* (12/31/22 1:55 AM) Respiratory Rate [16-30 br/min] 18 br/mi n (12/31/22 1:55 AM) Temperature [96.8-100.4 DegF] 97.7 DegF (12/31/22 1:55 AM) Mode of Delivery (Oxygen) Room air (12/31/22 1:55 AM) Temperature Route Oral (12/31/22 1:55 AM) EKG study * Event Display: ECG 12-Lead Authored Date: Please click on pdf link to open report * Event Display: ECG 12-Lead Authored Date: Ventricular Rate: 54 BPM Atrial Rate: 54 BPM P-R Interval: 142 ms QRS Duration: 92 ms Q-T Interval: 416 ms QTC Calculation(Bazett): 394 ms P Hickman: 41 degrees R Hickman: 45 degrees T Hickman: 23 degrees Sinus bradycardia Otherwise normal ECG No previous ECGs available Confirmed by JOSE VELA MD ([id number]) on 12/31/2022 9:49:03 PM [place]: JOSE EVLA MD * Event Display: EKG Authored Date: [id number] Patient Care team information Care Team Personnel Name: Not on Staff, PCP Position: [facility] Physician (General Medicine) Member Role: PCP
[2024-02-03 08:31] LABS: Amphetamine Screen Urine Not Detected (Not Detect); Barbiturates, Urine Not Detected (Not Detect); Benzodiazepines Screen Urine Not Detected (Not Detect); Buprenorphine Scr Positive (Not Detect); Cannabinoid Screen Urine Not Detected (Not Detect); Cocaine Screen Urine Not Detected (Not Detect); Fentanyl, urine Not Detected (Not Detect); Methadone Screen, Urine Not Detected (Not Detect); Opiate Screen Urine Not Detected (Not Detect); Oxycodone Screen Urine Not Detected (Not Detect); Phencyclidine Screen Urine Not Detected (Not Detect)
--- NOTE | 2024-02-03 11:30 | PC.NURSE ---
RN at bedside to explain discharge instructions. Pt states I don't feel comfortable going home, I still have this panic and tightness in my chest. You haven't done anything. MD Vance made aware, at bedside to speak with patient.
[2024-02-03 11:50] VITALS: BP 125/71; PULSE 61; RESP 16; TEMP 36.6; O2SAT 97
[2024-02-03] MEDS: hydrOXYzine HCL 50 MG TABLET PO (11:55)
--- NOTE | 2024-02-03 11:56 | PC.NURSE ---
Pt now feels comfortable going home, stressed to patient to follow up with psychiatrist and to take prescribed medications.
== END 2024-02-03 11:56 | disposition home or self-care (01) ==
PROVIDERS: Emergency Provider Emergency Medicine; PCP Internal Medicine
DX: F41.0 Panic disorder [episodic paroxysmal anxiety] (principal); F32.A Depression, unspecified; F11.20 Opioid dependence, uncomplicated; F17.210 Nicotine dependence, cigarettes, uncomplicated; Z79.899 Other long term (current) drug therapy
CPT/HCPCS: 80307; 99282; 99283; S9485

== ENCOUNTER 2024-02-07 11:50 | Emergency (ER) | payer OTHER, SELFPAY ==
--- NOTE | 2024-02-07 | ECG_ITS ---
Test Reason : CHEST PAIN Blood Pressure : / mmHG Vent. Rate : 050 BPM Atrial Rate : 050 BPM P-R Int : 142 ms QRS Dur : 088 ms QT Int : 434 ms P-R-T Axes : 058 037 017 degrees QTc Int : 395 ms Sinus bradycardia Otherwise normal ECG When compared with ECG of 01-FEB-2024 05:22, No significant change was found Referred By: Generic ED Physician Electronically Signed By:BRE RUTH MD
[2024-02-07 12:23] VITALS: BP 131/83; PULSE 57; RESP 18; TEMP 36.8; O2SAT 94; BMI 27.4
--- NOTE | 2024-02-07 12:25 | ED.GENADULT ---
HPI - General Adult General Stated complaint: chest pain Related Data Home Medications ?Medication ?Instructions ?Recorded ?Confirmed bupropion HCl 150 mg 24 hr tablet, 150 mg PO QAM 06/04/20 12/09/23 extended release naloxone 4 mg/actuation nasal spray 1 spray intranasal ONCE 04/22/22 12/09/23 buprenorphine 8 mg-naloxone 2 mg 10 mg sublingual DAILY 06/12/22 12/09/23 sublingual film docusate sodium 100 mg capsule 100 mg PO BID 03/10/23 12/09/23 mirtazapine 15 mg tablet 15 mg PO BEDTIME 03/10/23 12/09/23 cyclobenzaprine 10 mg tablet 10 mg PO TID PRN muscle spasm 04/07/23 12/09/23 duloxetine 60 mg capsule,delayed 60 mg PO DAILY 12/09/23 12/09/23 release loratadine 10 mg tablet 10 mg PO DAILY 12/09/23 12/09/23 mirtazapine 30 mg tablet 30 mg PO BEDTIME 12/09/23 12/09/23 varenicline 1 mg tablet mg PO 02/02/24 Previous Rx's ?Medication ?Instructions ?Recorded hydroxyzine HCl 50 mg tablet 50 mg PO BEDTIME #14 tabs 04/06/22 fluticasone propionate 50 1 spray intranasal BID #16 grams 05/30/22 mcg/actuation nasal spray,suspension (Flonase Allergy Relief) ibuprofen 600 mg tablet 600 mg PO Q6H PRN pain #30 tabs 11/03/22 diclofenac sodium 1 % topical gel 4 g topical QID 30 days #100 grams 12/17/22 (Voltaren Arthritis Pain) acetaminophen 500 mg tablet 500 mg PO Q6H PRN fever or pain 03/08/23 (Tylenol Extra Strength) #14 tabs calcium polycarbophil 625 mg 1,250 mg (2 x 625 mg) PO DAILY 30 07/14/23 tablet (Fiber Laxative (calcium days #60 tabs polycarbophil)) lactulose 20 gram/30 mL oral 20 g (30 mL) PO DAILY PRN 08/14/23 solution constipation #1,200 mL hydrocortisone 2.5 % topical cream 1 appl ND BEDTIME PRN hemorrhoids 08/24/23 with perineal applicator #30 grams (Proctosol HC) mesalamine 0.375 gram 1.5 g (4 x 0.375 gram) PO DAILY 90 12/30/23 capsule,extended release 24 hr days #360 caps (Apriso) gabapentin 100 mg capsule 200 mg (2 x 100 mg) PO BEDTIME 30 01/10/24 days #60 caps mesalamine 0.375 gram 1.5 g (4 x 0.375 gram) PO DAILY 01/14/24 capsule,extended release 24 hr #60 caps clonazepam 0.5 mg tablet (Klonopin) 0.5 mg PO BEDTIME PRN 01/17/24 anxiety/sleep #10 tabs esomeprazole magnesium 40 mg 40 mg PO DAILY #30 caps 01/26/24 capsule,delayed release (Nexium) sucralfate 1 gram tablet 1 g PO BEDTIME #90 tabs 01/26/24 budesonide-formoterol HFA 160 2 puff inhalation BID 30 days 02/02/24 mcg-4.5 mcg/actuation aerosol #10.2 grams inhaler (Symbicort) Allergies Allergy/AdvReac Type Severity Reaction Status Date / Time shellfish derived Allergy Intermediate Rash Verified 02/07/24 12:25 [facility] Past Medical History Medical History Hilar lymphadenopathy Fibromyalgia GERD (gastroesophageal reflux disease) Scrotal pain Rhinosinusitis 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 Mother No problems noted. Paternal Aunt Lung cancer Social History Social History Alcohol intake: never Patient Tobacco Use Status: Current everyday Tobacco user Tobacco use type: Cigarette Years Smoked: 23 Years e-Cigarette/Vaping Use: Currently Using Current occupational status: disabled Course Course Course Narrative: RME- 43-year-old male presents for evaluation of burning upper abdominal pain/chest pain. He reports a history of GERD since having an endoscopy 5 months ago. His EKG is nonischemic. Plan for labs. Discharge Plan Discharge Prescriptions: No Action mesalamine [Apriso] 0.375 gram capsule,extended release 24hr 1.5 g PO DAILY 90 Days Qty: 360 0RF ibuprofen 600 mg tablet 600 mg PO Q6H PRN (Reason: pain) Qty: 30 0RF hydroxyzine HCl 50 mg tablet 50 mg PO BEDTIME Qty: 14 0RF fluticasone propionate [Flonase Allergy Relief] 50 mcg/actuation spray,suspension 1 spray intranasal BID Qty: 16 0RF Rx Instructions: administer into each nostril lactulose 20 gram/30 mL solution 20 g PO DAILY PRN (Reason: constipation) Qty: 1200 0RF mesalamine 0.375 gram capsule,extended release 24hr 1.5 g PO DAILY Qty: 60 0RF clonazepam [Klonopin] 0.5 mg tablet 0.5 mg PO BEDTIME PRN (Reason: anxiety/sleep) Qty: 10 0RF Rx Instructions: administer 30 minutes before bedtime acetaminophen [Tylenol Extra Strength] 500 mg tablet 500 mg PO Q6H PRN (Reason: fever or pain) Qty: 14 0RF bupropion HCl 150 mg tablet extended release 24 hr 150 mg PO QAM naloxone 4 mg/actuation spray,non-aerosol 1 spray intranasal ONCE buprenorphine-naloxone 8-2 mg film 10 mg sublingual DAILY diclofenac sodium [Voltaren Arthritis Pain] 1 % gel 4 g topical QID 30 Days Qty: 100 0RF Rx Instructions: apply to single knee, ankle, foot; for foot includes sole/toes/top of foot hydrocortisone [Proctosol HC] 2.5 % cream with perineal applicator 1 appl ND BEDTIME PRN (Reason: hemorrhoids) Qty: 30 3RF sucralfate 1 gram tablet 1 g PO BEDTIME Qty: 90 0RF esomeprazole magnesium [Nexium] 40 mg capsule,delayed release(DR/EC) 40 mg PO DAILY Qty: 30 5RF varenicline 1 mg tablet PO budesonide-formoterol [Symbicort] 160-4.5 mcg/actuation HFA aerosol inhaler 2 puff inhalation BID 30 Days Qty: 10.2 11RF docusate sodium 100 mg capsule 100 mg PO BID mirtazapine 15 mg tablet 15 mg PO BEDTIME cyclobenzaprine 10 mg tablet 10 mg PO TID PRN (Reason: muscle spasm) calcium polycarbophil [Fiber Laxative (ca polycarbo)] 625 mg tablet 1,250 mg PO DAILY 30 Days Qty: 60 3RF duloxetine 60 mg capsule,delayed release(DR/EC) 60 mg PO DAILY mirtazapine 30 mg tablet 30 mg PO BEDTIME loratadine 10 mg tablet 10 mg PO DAILY gabapentin 100 mg capsule 200 mg PO BEDTIME 30 Days Qty: 60 6RF Print Language: Citizen Of [place]
[2024-02-07] MEDS: Ondansetron ODT 4 MG TAB.RAPDIS TRANSLINGU (12:55)
[2024-02-07] MEDS: Magnesium Hydrox/Alum Hydrox 30 ML ORAL.SUSP PO (12:55)
[2024-02-07] MEDS: Lidocaine HCl Viscous 2 % 15 ML SOLUTION MUCOUS MEM (12:55)
[2024-02-07 13:09] LABS: MANUAL DIFF FLAG NO
[2024-02-07 13:12] LABS: Basophils Absolute Auto 0.1 X10*3/uL (0.0-0.2); Basophils Percent Auto 1.6 % (0-2); Eosinophils Absolute Auto 0.2 X10*3/uL (0.0-0.4); Eosinophils Percent Auto 3.7 % (0-4); Hematocrit 41.8 % (42.0-52.0); Hemoglobin 14.5 g/dl (14.0-18.0); Imm Gran Abs Auto 0.02 X10*3/uL (0.00-0.03); Imm Gran Pct Auto 0.4 % (0.0-0.4); Lymphocytes Percent Auto 35.9 % (20-40); Mean Corpuscular HGB Conc 34.7 g/dl (31.0-36.0); Mean Corpuscular Hemoglobin 29.2 pg (27.0-33.0); Mean Corpuscular Volume 84.3 fL (80.0-98.0); Mean Platelet Volume 9.3 fL (9.4-12.4); Monocytes Absolute Auto 0.4 X10*3/uL (0.1-1.2); Monocytes Percent Auto 7.6 % (2-11); Neutrophils Absolute Auto 2.9 x10*3/uL (2.0-8.3); Neutrophils Percent Auto 50.8 % (45-73); Platelet Count 222 X10*3/uL (160-400); Red Blood Count 4.96 X10*6/uL (4.60-5.80); Red Cell Distribution Width 12.4 % (11.0-16.0); White Blood Count 5.7 X10*3/uL (4.8-10.8)
[2024-02-07 13:20] LABS: Prothrombin Time 12.6 SEC (11.1-13.3)
[2024-02-07 13:55] LABS: Alanine Aminotransferase 87 U/L (0-40); Albumin Level 4.5 g/dL (3.5-5.0); Alkaline Phosphatase 78 U/L (39-117); Anion Gap 11 (12-20); Aspartate Amino Transferase 38 U/L (5-37); Bilirubin Total 0.8 mg/dL (0.0-1.0); Blood Urea Nitrogen 12 mg/dL (9-16); Calcium 9.9 mg/dL (8.4-10.2); Carbon Dioxide 29 mmol/L (22-29); Chloride 105 mmol/L (96-108); Creatinine Clr Calc Pharmacy 86.2; Estimated Glomerular Filt Rate > 60; Glucose Random 106 mg/dL (60-115); Lipase 25 U/L (8-78); Potassium 3.8 mmol/L (3.3-5.1); Sodium 141 mmol/L (135-145); Total Protein 7.9 g/dL (6.5-8.0)
[2024-02-07 14:01] LABS: Troponin-I High Sensitivity 6.2 ng/L (<3.5-35.0)
--- NOTE | 2024-02-07 19:01 | MHC.EDTECH ---
No answer 19:01
== END 2024-02-07 21:15 | disposition left against medical advice (07) ==
LOC: HO.ED 21:01
PROVIDERS: Physician Assistant; Emergency Provider Emergency Medicine; PCP Internal Medicine
DX: R07.9 Chest pain, unspecified (principal); K21.9 Gastro-esophageal reflux disease without esophagitis; Z53.21 Procedure and treatment not carried out due to patient leaving prior to being seen by health care provider
CPT/HCPCS: 36415; 80053; 83690; 84484; 85025; 85610; 93005; 99283

== ENCOUNTER → 2024-02-07 12:10 | Outpatient (BNV) | payer OTHER, SELFPAY | PROVIDERS: PCP Internal Medicine; Visit Provider Internal Medicine Cardiovascular Disease | DX: R00.1 Bradycardia, unspecified (principal) | CPT/HCPCS: 93010 ==

== ENCOUNTER 2024-02-09 14:26 | Outpatient (REF) | payer OTHER, SELFPAY ==
[2024-02-09 16:07] LABS: Appearance Urine Turbid; Color Urine Dark Yellow; Glucose Urine UA Negative (Negative); Leukocyte Esterase Urine Negative (Negative); Nitrite Urine Negative (Negative); PH 5.5 (5.0-9.0); Specific Gravity - Urine >= 1.030 (1.005-1.025); Urine Blood Negative (Negative); Urine Ketones Trace mg/dL (Negative); Urine Protein Negative (Neg-Trace)
[2024-02-09 16:13] LABS: MANUAL DIFF FLAG NO
[2024-02-09 16:24] LABS: Basophils Absolute Auto 0.1 X10*3/uL (0.0-0.2); Basophils Percent Auto 1.8 % (0-2); Eosinophils Absolute Auto 0.2 X10*3/uL (0.0-0.4); Eosinophils Percent Auto 3.6 % (0-4); Hematocrit 42.9 % (42.0-52.0); Hemoglobin 14.6 g/dl (14.0-18.0); Imm Gran Abs Auto 0.01 X10*3/uL (0.00-0.03); Imm Gran Pct Auto 0.2 % (0.0-0.4); Lymphocytes Absolute Auto 1.8 X10*3/uL (1.2-4.9); Lymphocytes Percent Auto 36.2 % (20-40); Mean Corpuscular Volume 85.3 fL (80.0-98.0); Mean Platelet Volume 9.9 fL (9.4-12.4); Monocytes Absolute Auto 0.3 X10*3/uL (0.1-1.2); Monocytes Percent Auto 6.4 % (2-11); Neutrophils Absolute Auto 2.6 x10*3/uL (2.0-8.3); Neutrophils Percent Auto 51.8 % (45-73); Platelet Count 227 X10*3/uL (160-400); Red Blood Count 5.03 X10*6/uL (4.60-5.80); Red Cell Distribution Width 12.3 % (11.0-16.0)
[2024-02-09 16:55] LABS: PSA,Total (Free>4and<10) 0.75 ng/mL (0.00-4.00)
[2024-02-09 17:44] LABS: CT PCR NOT DETECTED (Not Detect.); NG PCR NOT DETECTED (Not Detect.)
[2024-02-09 19:13] LABS: Appearance Urine Clear; Color Urine Yellow; Glucose Urine UA Negative (Negative); Leukocyte Esterase Urine Negative (Negative); Nitrite Urine Negative (Negative); PH 5.5 (5.0-9.0); Urine Blood Negative (Negative); Urine Ketones Negative (Negative); Urine Protein Negative (Neg-Trace)
[2024-02-09 20:02] LABS: Bacteria Urine None Seen (None Seen); Hyaline Casts Urine 0-2 /LPF (0-2); RBC Urine 0-2 /HPF (0-2); Squamous Epithelial Cell Urine 0-2 /HPF (0-2); WBC Urine 0-5 /HPF (0-5)
== END 2024-02-09 14:27 | disposition home or self-care (01) ==
LOC: HO.HHCL 14:26
PROVIDERS: Visit Provider Family Medicine
DX: R39.9 Unspecified symptoms and signs involving the genitourinary system (principal); Z12.5 Encounter for screening for malignant neoplasm of prostate
CPT/HCPCS: 0353U; 36415; 81001; 81003; 84153; 85025; 87086

== ENCOUNTER 2024-03-08 14:10 | Outpatient (REF) | payer OTHER, SELFPAY ==
[2024-03-08 16:06] LABS: MANUAL DIFF FLAG NO
[2024-03-08 16:14] LABS: Basophils Absolute Auto 0.1 X10*3/uL (0.0-0.2); Basophils Percent Auto 1.5 % (0-2); Eosinophils Absolute Auto 0.2 X10*3/uL (0.0-0.4); Eosinophils Percent Auto 3.2 % (0-4); Hematocrit 43.8 % (42.0-52.0); Hemoglobin 15.1 g/dl (14.0-18.0); Imm Gran Abs Auto 0.01 X10*3/uL (0.00-0.03); Imm Gran Pct Auto 0.2 % (0.0-0.4); Lymphocytes Absolute Auto 2.1 X10*3/uL (1.2-4.9); Lymphocytes Percent Auto 43.2 % (20-40); Mean Corpuscular HGB Conc 34.5 g/dl (31.0-36.0); Mean Corpuscular Hemoglobin 29.2 pg (27.0-33.0); Mean Corpuscular Volume 84.7 fL (80.0-98.0); Mean Platelet Volume 9.9 fL (9.4-12.4); Monocytes Absolute Auto 0.4 X10*3/uL (0.1-1.2); Monocytes Percent Auto 7.6 % (2-11); Neutrophils Absolute Auto 2.1 x10*3/uL (2.0-8.3); Neutrophils Percent Auto 44.3 % (45-73); Platelet Count 229 X10*3/uL (160-400); Red Blood Count 5.17 X10*6/uL (4.60-5.80); Red Cell Distribution Width 12.5 % (11.0-16.0); White Blood Count 4.8 X10*3/uL (4.8-10.8)
[2024-03-08 17:16] LABS: Erythrocyte Sedimentation Rate 4 MM/HR (0-15)
[2024-03-08 19:33] LABS: Alanine Aminotransferase 100 U/L (0-40); Alkaline Phosphatase 75 U/L (39-117); Anion Gap 10 (12-20); Aspartate Amino Transferase 48 U/L (5-37); Bilirubin Direct 0.2 mg/dL (0.0-0.5); Bilirubin Total 0.7 mg/dL (0.0-1.0); Blood Urea Nitrogen 10 mg/dL (9-16); Calcium 9.4 mg/dL (8.4-10.2); Carbon Dioxide 29 mmol/L (22-29); Chloride 107 mmol/L (96-108); Cholesterol 261 mg/dL (<200); Estimated Glomerular Filt Rate > 60; Glucose Random 104 mg/dL (60-115); HDL Cholesterol 35 mg/dL (>40); LDL Cholesterol Calculated 178 mg/dL (<100); Potassium 4.2 mmol/L (3.3-5.1); Sodium 142 mmol/L (135-145); Total Protein 7.3 g/dL (6.5-8.0); Triglycerides 240 mg/dL (<150)
[2024-03-10 21:14] LABS: Anti DNA DS Antibody <1 IU/mL
[2024-03-10 22:19] LABS: TS Negative Control Passed; TS Panel A 0; TS Panel B 0; TS Positive Control Passed; TSpotTB Negative (Negative)
[2024-03-10 23:34] LABS: Immunoglobulin E 24 kU/L (<OR=114)
[2024-03-11 20:18] LABS: Angiotensin Converting Enzyme 65 U/L (9-67)
[2024-03-12 13:54] LABS: Testosterone, Free 34.4 pg/mL (35.0-155.0); Testosterone, Total 168 ng/dL (250-1100)
[2024-03-13 08:44] LABS: ~Hepatitis A Antibody IgM NON-REACTIVE (Nonreactive)
[2024-03-13 08:45] LABS: Hepatitis B Core Antibody NON-REACTIVE (Nonreactive)
[2024-03-13 08:47] LABS: ~Hepatitis B Surface Antibody NON-REACTIVE (Nonreactive)
[2024-03-13 08:48] LABS: Hepatitis B Surface Antigen NON-REACTIVE (Negative)
[2024-03-13 08:49] LABS: ~Hepatitis C Antibody NON-REACTIVE (Nonreactive)
[2024-03-22 09:43] LABS: Anti Nuclear Antibody Screen POSITIVE (NEGATIVE)
== END 2024-03-08 14:11 | disposition home or self-care (01) ==
LOC: HO.HHCL 14:10
PROVIDERS: Hospitalist; Visit Provider Internal Medicine
DX: Z11.1 Encounter for screening for respiratory tuberculosis (principal); R91.1 Solitary pulmonary nodule; R76.8 Other specified abnormal immunological findings in serum; E78.1 Pure hyperglyceridemia; R74.01 Elevation of levels of liver transaminase levels; N52.8 Other male erectile dysfunction
CPT/HCPCS: 36415; 80053; 80061; 80076; 82164; 82248; 82785; 84402; 84403; 85025; 85652; 86038; 86039; 86225; 86481; 86704; 86706; 86709; 86803; 87340

== ENCOUNTER 2024-03-14 09:22 | Outpatient (REF) | payer OTHER, SELFPAY ==
--- NOTE | ~2024-03-14 | US_ITS ---
EXAMINATION: US RIGHT INGUINAL, LIMITED/FOLLOW UP CLINICAL INFORMATION: Enlarged lymph nodes right inguinal region. COMPARISON: None available. TECHNIQUE: Targeted ultrasound images were obtained by the medical sales consultant of the area of concern as indicated by the patient in the right inguinal region. Radiologist was not in attendance. Images were later provided for interpretation. FINDINGS: No discrete hernia identified in the area indicated by the patient in the right inguinal region. 0.9 x 0.5 x 0.7 cm and 1.6 x 0.5 x 1.1 cm lymph nodes with echogenic jean are identified in the right inguinal region. US/US pelvic limited IMPRESSION: 1. No discrete hernia identified in the area indicated by the patient in the right inguinal region. 2. Lymph nodes measuring 0.9 x 0.5 x 0.7 cm and 1.6 x 0.5 x 1.1 cm with echogenic jean are identified in the right inguinal region. Correlation with clinical exam recommended to determine further management including possible additional imaging with CT scan.
--- NOTE | ~2024-03-14 | US_ITS ---
EXAMINATION: US ABDOMEN COMPLETE CLINICAL INFORMATION: Transaminitis. COMPARISON: X-ray KUB 08/13/2023. X-ray abdomen 07/09/2023. Ultrasound abdomen 01/14/2023. CT abdomen and pelvis 04/19/2022. TECHNIQUE: Real-time imaging of the abdominal viscera. Limited visualization due to bowel gas. FINDINGS: PANCREAS: Limited visualization of pancreatic tail and head. Imaged portion of pancreatic body is unremarkable. ABDOMINAL AORTA: Limited visualization. Imaged portion of abdominal aorta is nonaneurysmal. INFERIOR VENA CAVA: Visualized portions are normal. LIVER: Hepatomegaly, 16.5 cm. Increased hepatic parenchymal heterogeneity and echogenicity could be associated with hepatocellular disease/hepatic steatosis and substantially limits visualization. Hypoechoic areas within the right hepatic lobe are characteristic of focal sparing within a fatty liver. Correlation with liver function tests and clinical exam recommended to determine further management. GALLBLADDER: No gallstones. No gallbladder wall thickening. COMMON BILE DUCT: Normal in caliber measuring 0.2 cm in diameter. RIGHT KIDNEY: No hydronephrosis. No renal calculi. Limited visualization. The kidney measures 10.6 cm in maximum dimension. LEFT KIDNEY: No hydronephrosis. No renal calculi. Limited visualization. The kidney measures 10.8 cm in maximum dimension. SPLEEN: Normal. The spleen measures 11.2 cm in maximum dimension. FREE FLUID: None. US/US abdomen complete IMPRESSION: Hepatomegaly, 16.5 cm. Increased hepatic parenchymal heterogeneity and echogenicity could be associated with hepatocellular disease/hepatic steatosis and substantially limits visualization. Hypoechoic areas within the right hepatic lobe are characteristic of focal sparing within a fatty liver. Correlation with liver function tests and clinical exam recommended to determine further management.
== END 2024-03-14 09:23 | disposition home or self-care (01) ==
LOC: HO.US 09:22
PROVIDERS: PCP Internal Medicine; Visit Provider Internal Medicine
DX: R59.0 Localized enlarged lymph nodes (principal); R74.01 Elevation of levels of liver transaminase levels
CPT/HCPCS: 76700; 76857

== ENCOUNTER 2024-03-16 14:28 | Outpatient (REF) | payer OTHER, SELFPAY ==
[2024-03-17 10:37] LABS: Follicle Stimulating Hormone 3.8 mIU/mL (1.4-12.8); Lutenizing Hormone 1.1 mIU/mL (1.5-9.3)
== END 2024-03-16 14:29 | disposition home or self-care (01) ==
LOC: HO.HHCL 14:28
PROVIDERS: Visit Provider Internal Medicine
DX: R79.89 Other specified abnormal findings of blood chemistry (principal); E29.1 Testicular hypofunction
CPT/HCPCS: 36415; 83001; 83002

== ENCOUNTER 2024-03-21 14:35 | Outpatient (AMB) | payer OTHER, SELFPAY ==
--- NOTE | 2024-03-21 14:53 | MHC.OFFVIS ---
Vital Signs 03/21/24 14:54 Height 5 ft 6 in Weight 171 lb 8.314 oz BMI 27.7 BP 108/72 Blood Pressure Location Lt brachial Position Sitting Pulse 75 Pulse Source Pulse Oximeter Intake Visit Reasons: Er Follow up chest pain, dizzy Advanced Manufacturing Consultant Required: No Allergies shellfish derived Allergy (Intermediate, Verified 03/21/24 14:55) Rash Medication List - Last Reconciled 03/21/24 by CASSANDRA Travis acetaminophen (Tylenol Extra Strength) 500 mg PO Q6H PRN budesonide-formoterol 160-4.5 mcg/actuation (Symbicort) 2 puffs inhalation BID 30 days buprenorphine-naloxone 8-2 mg 10 mg sublingual DAILY bupropion HCl XL 150 mg PO QAM calcium polycarbophil (Fiber Laxative (calcium polycarbophil)) 1,250 mg (2 x 625 mg) PO DAILY 30 days clonazepam (Klonopin) 0.5 mg PO BEDTIME PRN diclofenac sodium 1% (Voltaren Arthritis Pain) 4 grams topical QID 30 days docusate sodium 100 mg PO BID duloxetine 60 mg PO DAILY esomeprazole magnesium (Nexium) 40 mg PO DAILY gabapentin 200 mg (2 x 100 mg) PO BEDTIME 30 days hydroxyzine HCl 50 mg PO BEDTIME ibuprofen 600 mg PO Q6H PRN lactulose 20 grams (30 mL) PO DAILY PRN loratadine 10 mg PO DAILY mesalamine ER 1.5 grams (4 x 0.375 gram) PO DAILY mesalamine ER (Apriso) 1.5 grams (4 x 0.375 gram) PO DAILY 90 days mirtazapine 15 mg PO BEDTIME sucralfate 1 g PO BEDTIME HPI HPI Er Follow up chest pain, dizzy: Details: Cody is a 43-year-old male no known cardiac history, with fibromyalgia, heart palpitations and chest discomfort who was recently seen in the emergency room for chest discomfort and ruled out for ACS. His last prior visit to our office was 04/07/2023. Today he reports that he was having some poking sensations in his anterior chest which created anxiety and prompted his recent ER evaluation. He has had these sensations in the past as well. He denies any chest discomfort brought on by physical activity. His symptoms mostly occur when he is at rest. He will feel his heart going fast at times which again creates anxiety for him. No lightheadedness, presyncope, syncope, falls. No shortness of breath, PND, orthopnea or edema. He is on disability due to visual issues and prior corneal transplant also fibromyalgia. 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 Mother No problems noted. Paternal Aunt Lung cancer Social History Alcohol intake: never Patient Tobacco Use Status: Current everyday Tobacco user Tobacco use type: Cigarette Years Smoked: 23 Years e-Cigarette/Vaping Use: Currently Using Current occupational status: disabled Review of Systems Const Details: anxiety All systems reviewed & are unremarkable except as noted in HPI and below Card Reports chest pain, Reports chest pain at rest, Denies chest pain with activity, Denies dyspnea and Denies dyspnea on exertion Resp Denies dyspnea and Denies dyspnea on exertion Musc Details: has fibromyalgia Skin/Breast Denies system reviewed and no additional complaints, except as documented Physical Exam Vital Signs: Last Vital Signs Pulse 75 03/21/24 14:54 BP 108/72 03/21/24 14:54 BMI result Body Mass Index 27.7 Const General: cooperative, healthy appearing, comfortable and no acute distress Orientation/consciousness: patient oriented x3 Neck Neck: Yes normal visual inspection and Yes no JVD Resp Effort & Inspection: normal respiratory effort Auscultation: clear to auscultation bilaterally, no crackles, no rales, no rhonchi and no wheezes Cardio Jugular venous distension: no JVD Rate: regular rate Rhythm: regular rhythm Heart sounds: S1 normal heart sound present, S2 normal heart sound present, no murmurs and no rubs Neuro General: patient oriented x3 Extrem General: Yes normal to inspection and No no pedal edema Psych Appearance: grossly normal Mental Status: mental status grossly normal Speech and movement: Normal speech and movement present Assessment & Plan Assessment & Plan (1) Chest discomfort: Comment: coracoid process tenderness likely to strain Code(s): R07.89 - Other chest pain Category: Medical Plan: History of atypical chest discomfort with prior cardiac evaluation and no cardiac findings. Recent ER evaluation for chest discomfort and ruled out for ACS. Last echo done on 02/18/2022 was normal study. Stress echocardiogram was done on 05/21/2023 with exercise 9 minutes 45 seconds without EKG changes or echo evidence of ischemia. He has a low cardiac risk profile. He has no exertional chest discomfort. No further cardiac testing needed at this time. Signs and symptoms of angina reviewed with him. Cardiology follow-up as needed. (2) Anxiety: Comment: Follow-up PCP Code(s): F41.9 - Anxiety disorder, unspecified Category: Medical Plan: Patient reports issues with chronic anxiety. (3) Heart palpitations: Code(s): R00.2 - Palpitations Category: Medical Plan: Reports of heart palpitations like his heart is beating fast. Symptom can coincide with his anxiety symptoms. Holter monitor done on 04/27/2023 for 4.5 days showed sinus rhythm with average heart rate 71 beats per minute rare ectopy, symptoms correlated with sinus rhythm. A Holter monitor was done on 02/18/2022 for 2 days showing sinus rhythm average heart rate 73 beats per minute, rare ectopy, one 8 beat SVT noted. At this time he is not describing symptoms that suggest issues with recurrent SVT. Discussed avoidance of stimulants, increasing physical activity as tolerated. Plan Time spent on chart review, documentation, interview and assessment. Coding Level of Care Code Est Pt Level 3 (90710) Diagnoses Chest discomfort R07.89 Anxiety F41.9 Heart palpitations R00.2 Time Spent (min) 24
[2024-03-21 14:54] VITALS: BP 108/72; PULSE 75; BMI 27.7
== END 2024-03-21 15:34 | disposition home or self-care (01) ==
PROVIDERS: PCP Internal Medicine; Visit Provider Nurse Practitioner Family
DX: R07.89 Other chest pain (principal); F41.9 Anxiety disorder, unspecified; R00.2 Palpitations
CPT/HCPCS: 99213

== ENCOUNTER → 2024-03-21 14:35 | Outpatient (BNVA) | payer OTHER, SELFPAY | PROVIDERS: PCP Internal Medicine; Visit Provider Nurse Practitioner Family | DX: R07.89 Other chest pain (principal); R00.2 Palpitations; F41.9 Anxiety disorder, unspecified | CPT/HCPCS: 99212 ==

== ENCOUNTER 2024-03-30 13:41 | Outpatient (AMB) | payer OTHER, SELFPAY ==
--- NOTE | 2024-03-30 13:54 | MHC.OFFVIS ---
Vital Signs 03/30/24 13:55 Height 5 ft 6 in Weight 171 lb 1.259 oz BMI 27.6 BP 138/78 Blood Pressure Location Lt brachial Position Sitting Pulse 64 Pulse Source Pulse Oximeter Intake Visit Reasons: Hypogonadism-confirmed Intake Note: Patient present today for Hypogonadism office visit Corduroy Cutting Supervisor Required: No Corduroy Cutting Supervisor Services: Corduroy Cutting Supervisor Offered & Declined Accompanied by: Self / Same As Patient Allergies shellfish derived Allergy (Intermediate, Verified 03/30/24 13:59) Rash Medication List - Last Reconciled 03/30/24 by Shyam Pablo MD acetaminophen (Tylenol Extra Strength) 500 mg PO Q6H PRN budesonide-formoterol 160-4.5 mcg/actuation (Symbicort) 2 puffs inhalation BID 30 days buprenorphine-naloxone 8-2 mg 10 mg sublingual DAILY bupropion HCl XL 150 mg PO QAM calcium polycarbophil (Fiber Laxative (calcium polycarbophil)) 1,250 mg (2 x 625 mg) PO DAILY 30 days clonazepam (Klonopin) 0.5 mg PO BEDTIME PRN diclofenac sodium 1% (Voltaren Arthritis Pain) 4 grams topical QID 30 days docusate sodium 100 mg PO BID duloxetine 60 mg PO DAILY esomeprazole magnesium (Nexium) 40 mg PO DAILY gabapentin 200 mg (2 x 100 mg) PO BEDTIME 30 days hydroxyzine HCl 50 mg PO BEDTIME ibuprofen 600 mg PO Q6H PRN lactulose 20 grams (30 mL) PO DAILY PRN loratadine 10 mg PO DAILY mesalamine ER 1.5 grams (4 x 0.375 gram) PO DAILY mesalamine ER (Apriso) 1.5 grams (4 x 0.375 gram) PO DAILY 90 days mirtazapine 15 mg PO BEDTIME sucralfate 1 g PO BEDTIME HPI Comments Details: 43 YO Male with PMHx suboxone use who is seen in consultation at the request of his PCP for Hypogonadism. First diagnosed with Hypogonadism just recently with labs revealing low testosterone . Currently achieving spontaneous am erections, and unable to achieve erection when desired. Reports low libido. Decreased facial hair and shaving frequency. Denies any change in size or shape of testicles. Denies penile discharge or scrotal tenderness. Denies any history of mumps orchitis. Denies any head trauma. Denies history of DELFINO. but does snore at night with children who were conceived spontaneously no issues with fertility Sense of smell intact. admits headache but visual changes, gynecomastia or galactorrhea. Denies orthostatic symptoms, weight loss. Denies change in size of hands or feet. Denies hair loss, weight gain, cold intolerance. 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 Mother No problems noted. Paternal Aunt Lung cancer Social History Alcohol intake: never Patient Tobacco Use Status: Current everyday Tobacco user Tobacco use type: Cigarette Years Smoked: 23 Years e-Cigarette/Vaping Use: Currently Using Current occupational status: disabled Physical Exam There is the absence of eunichoidal proportions. Neck exam reveals nl thyroid about 15 gms. Chest exam reveals absence of gynecomastia. Lungs CTA. Heart is S1 S2 Reg R/R. -M/R/G. Abdominal exam is benign. Muscle strength is 5/5 proximally. Examination of genitalia reveals nl size pthalus . Testes are of nl size and consistency. 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 Possible etiologies include the use of Suboxone which could suppress the gonadal axis. Plan is to check a fasting prolactin , a.m. cortisol and repeat testosterone/free testosterone. We will review an MRI of the pituitary that was ordered by his primary care when available. After the above, could consider testosterone supplementation and will talk about different forms of supplementation with patient Orders: Orders Prolactin Today E29.1 - Testicular hypofunction Testosterone, Free/Total Today E29.1 - Testicular hypofunction Cortisol Random Today E29.1 - Testicular hypofunction Coding Level of Care Code New Pt Level 4 (88620) Diagnoses Hypogonadism, testicular E29.1
[2024-03-30 13:55] VITALS: BP 138/78; PULSE 64; BMI 27.6
== END 2024-03-30 14:29 | disposition home or self-care (01) ==
PROVIDERS: PCP Internal Medicine; Visit Provider Internal Medicine Endocrinology, Diabetes & Metabolism
DX: E29.1 Testicular hypofunction (principal)
CPT/HCPCS: 99204

== ENCOUNTER → 2024-03-30 13:41 | Outpatient (BNVA) | payer OTHER, SELFPAY | PROVIDERS: PCP Internal Medicine; Visit Provider Internal Medicine Endocrinology, Diabetes & Metabolism | DX: E29.1 Testicular hypofunction (principal); Z79.899 Other long term (current) drug therapy | CPT/HCPCS: 99202 ==

== ENCOUNTER 2024-04-11 16:19 | Emergency (ER) | payer OTHER, SELFPAY ==
--- NOTE | ~2024-04-11 | XR_ITS ---
EXAMINATION: XR CHEST CLINICAL INFORMATION: Chest pain COMPARISON: Chest radiograph 02/01/2024 TECHNIQUE: 2 views of the chest were obtained. FINDINGS: No significant abnormality is noted involving the heart, lungs, mediastinum, bony thorax or soft tissues. XR/XR chest 2V IMPRESSION: Unremarkable examination.
--- NOTE | 2024-04-11 16:21 | ECG_ITS ---
Test Reason : chest pain Blood Pressure : / mmHG Vent. Rate : 069 BPM Atrial Rate : 069 BPM P-R Int : 130 ms QRS Dur : 086 ms QT Int : 394 ms P-R-T Axes : 058 043 038 degrees QTc Int : 422 ms Normal sinus rhythm Normal ECG When compared with ECG of 07-FEB-2024 12:10, No significant change was found Referred By: Katelyn Mensah Electronically Signed By:BRE RUTH MD
[2024-04-11 16:26] VITALS: BP 137/75; PULSE 68; RESP 18; TEMP 36.4; O2SAT 96; BMI 27.0
--- NOTE | 2024-04-11 16:28 | ED.CHESTPAIN ---
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 and diagnose as noncardiac chest pain comes here for 1 week of burning feeling in the chest with dizziness anxiety no cough no shortness a breath denies any abdominal pain denies any history of gastric reflex Related Data Home Medications ?Medication ?Instructions ?Recorded ?Confirmed bupropion HCl 150 mg 24 hr tablet, 150 mg PO QAM 06/04/20 03/21/24 extended release buprenorphine 8 mg-naloxone 2 mg 10 mg sublingual DAILY 06/12/22 03/21/24 sublingual film docusate sodium 100 mg capsule 100 mg PO BID 03/10/23 03/21/24 mirtazapine 15 mg tablet 15 mg PO BEDTIME 03/10/23 03/21/24 duloxetine 60 mg capsule,delayed 60 mg PO DAILY 12/09/23 03/21/24 release loratadine 10 mg tablet 10 mg PO DAILY 12/09/23 03/21/24 Previous Rx's ?Medication ?Instructions ?Recorded hydroxyzine HCl 50 mg tablet 50 mg PO BEDTIME #14 tabs 04/06/22 ibuprofen 600 mg tablet 600 mg PO Q6H PRN pain #30 tabs 11/03/22 diclofenac sodium 1 % topical gel 4 g topical QID 30 days #100 grams 12/17/22 (Voltaren Arthritis Pain) acetaminophen 500 mg tablet 500 mg PO Q6H PRN fever or pain 03/08/23 (Tylenol Extra Strength) #14 tabs calcium polycarbophil 625 mg 1,250 mg (2 x 625 mg) PO DAILY 30 07/14/23 tablet (Fiber Laxative (calcium days #60 tabs polycarbophil)) lactulose 20 gram/30 mL oral 20 g (30 mL) PO DAILY PRN 08/14/23 solution constipation #1,200 mL mesalamine 0.375 gram 1.5 g (4 x 0.375 gram) PO DAILY 90 12/30/23 capsule,extended release 24 hr days #360 caps (Apriso) gabapentin 100 mg capsule 200 mg (2 x 100 mg) PO BEDTIME 30 01/10/24 days #60 caps mesalamine 0.375 gram 1.5 g (4 x 0.375 gram) PO DAILY 01/14/24 capsule,extended release 24 hr #60 caps clonazepam 0.5 mg tablet (Klonopin) 0.5 mg PO BEDTIME PRN 01/17/24 anxiety/sleep #10 tabs esomeprazole magnesium 40 mg 40 mg PO DAILY #30 caps 01/26/24 capsule,delayed release (Nexium) sucralfate 1 gram tablet 1 g PO BEDTIME #90 tabs 01/26/24 budesonide-formoterol HFA 160 2 puff inhalation BID 30 days 02/02/24 mcg-4.5 mcg/actuation aerosol #10.2 grams inhaler (Symbicort) Allergies Allergy/AdvReac Type Severity Reaction Status Date / Time shellfish derived Allergy Intermediate Rash Verified 04/11/24 16:27 Review of Systems Review of Systems: Yes all other systems are reviewed and are negative [facility] Past Medical History Medical History Hypogonadism, testicular Hilar lymphadenopathy Fibromyalgia GERD (gastroesophageal reflux disease) Scrotal pain Rhinosinusitis 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 Mother No problems noted. Paternal Aunt Lung cancer Social History Social History Alcohol intake: never Patient Tobacco Use Status: Current everyday Tobacco user Tobacco use type: Cigarette Years Smoked: 23 Years Smoked in Last 30 Days: Yes e-Cigarette/Vaping Use: Currently Using Use of substances other than those prescribed or required for medical reasons: No Advance Directives: No Advance Directives Information Provided: No Do you have a plan to hurt others: No Plan Current occupational status: disabled Physical Exam Vital Signs: Vital Signs: Last Vital Signs Temp 98.8 F 04/11/24 22:29 Pulse 100 04/11/24 22:29 Resp 12 04/11/24 22:29 BP 133/82 04/11/24 22:29 Pulse Ox 99 04/11/24 22:29 O2 Del Method Room Air 04/11/24 22:29 BMI result Body Mass Index 27.0 Appearance: Alert. Oriented X3. No acute distress. Anxious Eyes: PERRLA, No Nystagmus ENT: Pharynx normal. Oral Mucosa moist Neck: Normal inspection. Neck supple. CVS: Normal heart rate and rhythm. Pulses normal. Respiratory: No respiratory distress. Equal air entry bilateral, no wheezing/rales/rhonchi Abdomen: Soft and nontender. Bowel sounds are present, no mass palpable, no CVA tenderness Skin: Skin warm and dry. Normal skin color. Normal skin turgor. Extremities: No lower extremity edema. No calf tenderness Neuro: Oriented X 3. No motor deficit. No sensory deficit.No cerebellar signs , cranial nerves II-XII intact Course Course Course Narrative: This is a Rapid Medical Examination (RME) performed by Drea Mensah PA-C in triage. Full HPI, ROS, assessment and treatment plan per primary provider in the Main ED. 43 yo male hx of GERD, anxiety, fibromyalgia here for eval of central cp x1 wk w/ radiation to central back. feels sob at times. Admits to associated palpitations which he has had in the past. Denies cough, hemoptysis, calf pain swelling. No recent travel or long car rides. + well-appearing. Speaking complete sentences. Not diaphoretic. rrr. Lungs clear. Plan: labs, ekg, cxr Medical Decision Making Medical Decision Making [facility] Narrative: Patient with anxiety atypical chest pain heart score of 0 prior evaluation negative discharge patient home advised to continue his medication may take ibuprofen for pain Differential Diagnosis Differential Diagnoses: The differential diagnosis associated with the presentation includes Anxiety/ACS/ Lab Data [facility] Lab Attestation statement: I reviewed the patient's lab results. 04/11/24 18:00 04/11/24 18:00 Labs: Lab Results 04/11/24 Range/Units 18:00 WBC 4.3 L (4.8-10.8) X10*3/uL RBC 4.70 (4.60-5.80) X10*6/uL Hgb 14.0 (14.0-18.0) g/dl Hct 39.6 L (42.0-52.0) % MCV 84.3 (80.0-98.0) fL MCH 29.8 (27.0-33.0) pg MCHC 35.4 (31.0-36.0) g/dl RDW 12.2 (11.0-16.0) % Plt Count 217 (160-400) X10*3/uL MPV 9.6 (9.4-12.4) fL Immature Gran % (Auto) 0.2 (0.0-0.4) % Neut % (Auto) 59.2 (45-73) % Lymph % (Auto) 32.0 (20-40) % [place] % (Auto) 5.1 (2-11) % Eos % (Auto) 1.6 (0-4) % Baso % (Auto) 1.9 (0-2) % Lymph # (Auto) 1.4 (1.2-4.9) X10*3/uL [place] # (Auto) 0.2 (0.1-1.2) X10*3/uL Eos # (Auto) 0.1 (0.0-0.4) X10*3/uL Baso # (Auto) 0.1 (0.0-0.2) X10*3/uL Abs Immat Gran (auto) 0.01 (0.00-0.03) X10*3/uL Absolute Neuts (auto) 2.5 (2.0-8.3) x10*3/uL Absolute Nucleated RBC 0.000 (0.0-0.012) X10*3/uL Nucleated RBC % (auto) 0.0 (0.0-0.2) /100WBC PT 12.6 (11.1-13.3) SEC INR 1.0 (0.9-1.1) Sodium 142 (135-145) mmol/L Potassium 4.3 (3.3-5.1) mmol/L Chloride 107 (96-108) mmol/L Carbon Dioxide 27 (22-29) mmol/L Anion Gap 12 (12-20) BUN 10 (9-16) mg/dL Creatinine 0.92 (0.5-1.4) mg/dL Estim Creat Clear Calc 93.4 Estimated GFR > 60 Random Glucose 89 (60-115) mg/dL Calcium 9.8 (8.4-10.2) mg/dL Magnesium 2.4 (1.6-2.6) mg/dL Total Bilirubin 0.6 (0.0-1.0) mg/dL AST 45 H (5-37) U/L ALT 77 H (0-40) U/L Alkaline Phosphatase 73 (39-117) U/L Troponin I High Sens 8.9 (<3.5-35.0) ng/L Total Protein 7.9 (6.5-8.0) g/dL Albumin 4.6 (3.5-5.0) g/dL Lipase 19 (8-78) U/L TSH 1.20 (0.32-4.0) uIU/mL Influenza Type A (PCR) NEGATIVE (Negative) Influenza Type B (PCR) NEGATIVE (Negative) RSV RNA Qual (PCR) NEGATIVE (Negative) SARS-CoV-2 RNA (RT-PCR) NEGATIVE (Negative) Independent Interpretation I performed an independent interpretation of an: EKG Interpretation: Normal sinus rhythm heart rate 69 beats per minute normal interval normal axis no acute ST T wave changes no ischemia Discharge Plan Discharge Clinical Impression: Atypical chest pain Patient Disposition: Home, Self-Care Instructions: Noncardiac Chest Pain (ED) Additional Instructions: Your chest pain is not from the heart disease follow up with your needle loom operator helper/PCP Take Tylenol/ibuprofen for pain continue medication for anxiety Prescriptions: No Action mesalamine [Apriso] 0.375 gram capsule,extended release 24hr 1.5 g PO DAILY 90 Days Qty: 360 0RF ibuprofen 600 mg tablet 600 mg PO Q6H PRN (Reason: pain) Qty: 30 0RF hydroxyzine HCl 50 mg tablet 50 mg PO BEDTIME Qty: 14 0RF lactulose 20 gram/30 mL solution 20 g PO DAILY PRN (Reason: constipation) Qty: 1200 0RF mesalamine 0.375 gram capsule,extended release 24hr 1.5 g PO DAILY Qty: 60 0RF clonazepam [Klonopin] 0.5 mg tablet 0.5 mg PO BEDTIME PRN (Reason: anxiety/sleep) Qty: 10 0RF Rx Instructions: administer 30 minutes before bedtime acetaminophen [Tylenol Extra Strength] 500 mg tablet 500 mg PO Q6H PRN (Reason: fever or pain) Qty: 14 0RF bupropion HCl 150 mg tablet extended release 24 hr 150 mg PO QAM buprenorphine-naloxone 8-2 mg film 10 mg sublingual DAILY diclofenac sodium [Voltaren Arthritis Pain] 1 % gel 4 g topical QID 30 Days Qty: 100 0RF Rx Instructions: apply to single knee, ankle, foot; for foot includes sole/toes/top of foot sucralfate 1 gram tablet 1 g PO BEDTIME Qty: 90 0RF esomeprazole magnesium [Nexium] 40 mg capsule,delayed release(DR/EC) 40 mg PO DAILY Qty: 30 5RF budesonide-formoterol [Symbicort] 160-4.5 mcg/actuation HFA aerosol inhaler 2 puff inhalation BID 30 Days Qty: 10.2 11RF docusate sodium 100 mg capsule 100 mg PO BID mirtazapine 15 mg tablet 15 mg PO BEDTIME calcium polycarbophil [Fiber Laxative (ca polycarbo)] 625 mg tablet 1,250 mg PO DAILY 30 Days Qty: 60 3RF duloxetine 60 mg capsule,delayed release(DR/EC) 60 mg PO DAILY loratadine 10 mg tablet 10 mg PO DAILY gabapentin 100 mg capsule 200 mg PO BEDTIME 30 Days Qty: 60 6RF Interventions: ED Discharge Assessment Last Done: 04/11/24 22:29 Discharge Date/Time: 04/11/24 22:30 Print Language: Mexican
[2024-04-11 18:05] LABS: MANUAL DIFF FLAG NO
[2024-04-11 18:17] LABS: Prothrombin Time 12.6 SEC (11.1-13.3)
[2024-04-11 18:26] LABS: Basophils Absolute Auto 0.1 X10*3/uL (0.0-0.2); Basophils Percent Auto 1.9 % (0-2); Eosinophils Absolute Auto 0.1 X10*3/uL (0.0-0.4); Eosinophils Percent Auto 1.6 % (0-4); Hematocrit 39.6 % (42.0-52.0); Imm Gran Abs Auto 0.01 X10*3/uL (0.00-0.03); Imm Gran Pct Auto 0.2 % (0.0-0.4); Lymphocytes Absolute Auto 1.4 X10*3/uL (1.2-4.9); Mean Corpuscular HGB Conc 35.4 g/dl (31.0-36.0); Mean Corpuscular Hemoglobin 29.8 pg (27.0-33.0); Mean Corpuscular Volume 84.3 fL (80.0-98.0); Mean Platelet Volume 9.6 fL (9.4-12.4); Monocytes Absolute Auto 0.2 X10*3/uL (0.1-1.2); Monocytes Percent Auto 5.1 % (2-11); Neutrophils Absolute Auto 2.5 x10*3/uL (2.0-8.3); Neutrophils Percent Auto 59.2 % (45-73); Platelet Count 217 X10*3/uL (160-400); Red Cell Distribution Width 12.2 % (11.0-16.0); White Blood Count 4.3 X10*3/uL (4.8-10.8)
[2024-04-11 18:28] LABS: Troponin-I High Sensitivity 8.9 ng/L (<3.5-35.0)
[2024-04-11 18:35] LABS: Alanine Aminotransferase 77 U/L (0-40); Albumin Level 4.6 g/dL (3.5-5.0); Alkaline Phosphatase 73 U/L (39-117); Anion Gap 12 (12-20); Aspartate Amino Transferase 45 U/L (5-37); Bilirubin Total 0.6 mg/dL (0.0-1.0); Blood Urea Nitrogen 10 mg/dL (9-16); Calcium 9.8 mg/dL (8.4-10.2); Carbon Dioxide 27 mmol/L (22-29); Chloride 107 mmol/L (96-108); Creatinine Clr Calc Pharmacy 93.4; Estimated Glomerular Filt Rate > 60; Glucose Random 89 mg/dL (60-115); Magnesium 2.4 mg/dL (1.6-2.6); Potassium 4.3 mmol/L (3.3-5.1); Sodium 142 mmol/L (135-145); Total Protein 7.9 g/dL (6.5-8.0)
[2024-04-11 18:43] LABS: Influenza A PCR NEGATIVE (Negative); Influenza B PCR NEGATIVE (Negative); Resp Syncy Virus RNA Qual PCR NEGATIVE (Negative); SARS COV2 PCR INHOUSE NEGATIVE (Negative)
[2024-04-11 18:51] LABS: Lipase 19 U/L (8-78)
[2024-04-11 21:37] VITALS: BP 156/75; PULSE 53; RESP 16; O2SAT 98
[2024-04-11 22:00] VITALS: BP 133/82; PULSE 100; RESP 12; TEMP 37.1; O2SAT 99
[2024-04-11 22:29] VITALS: BP 133/82; PULSE 100; RESP 12; TEMP 37.1; O2SAT 99
== END 2024-04-11 22:30 | disposition home or self-care (01) ==
PROVIDERS: Physician Assistant Medical; Emergency Provider Internal Medicine; PCP Internal Medicine
DX: R07.89 Other chest pain (principal); R42 Dizziness and giddiness; Z79.899 Other long term (current) drug therapy; Z03.818 Encounter for observation for suspected exposure to other biological agents ruled out
CPT/HCPCS: 0241U; 71046; 80053; 83690; 83735; 84443; 84484; 85025; 85610; 93005; 99283; 99285

== ENCOUNTER → 2024-04-11 16:21 | Outpatient (BNV) | payer OTHER, SELFPAY | PROVIDERS: Emergency Provider Internal Medicine; PCP Internal Medicine; Visit Provider Internal Medicine Cardiovascular Disease | DX: R07.9 Chest pain, unspecified (principal) | CPT/HCPCS: 93010 ==

== ENCOUNTER 2024-04-27 06:03 | Emergency (ER) | payer OTHER, SELFPAY ==
--- NOTE | 2024-04-27 | ECG_ITS ---
Test Reason : CP/SOB Blood Pressure : / mmHG Vent. Rate : 045 BPM Atrial Rate : 045 BPM P-R Int : 150 ms QRS Dur : 090 ms QT Int : 460 ms P-R-T Axes : 049 041 009 degrees QTc Int : 397 ms Sinus bradycardia Otherwise normal ECG When compared with ECG of 11-APR-2024 16:19, Vent. rate has decreased BY 24 BPM T wave inversion now evident in Inferior leads Referred By: Generic ED Physician Electronically Signed By:CHU DEVLIN
--- NOTE | ~2024-04-27 | XR_ITS ---
EXAMINATION: XR CHEST CLINICAL INFORMATION: Shortness of breath COMPARISON: Chest radiograph 04/11/2024. CT angiography chest 02/01/2024 TECHNIQUE: Frontal view of the chest was obtained. FINDINGS: Normal appearance of the cardiomediastinal structures. No effusions or pneumothoraces. Normal pattern of pulmonary vasculature. No focal pulmonary consolidation. Minimal bilateral acromioclavicular joint osteophytosis. XR/XR chest 1V IMPRESSION: No cardiopulmonary abnormalities identified. Electronically signed by: Jeremy Villarreal MD 04/27/2024 06:54 AM EDT
[2024-04-27 06:11] VITALS: BP 159/97; PULSE 56; O2SAT 99
[2024-04-27 06:13] VITALS: BP 147/79; PULSE 49; RESP 12; TEMP 36.4; O2SAT 97; BMI 27.4
[2024-04-27 06:29] LABS: Basophils Absolute Auto 0.1 X10*3/uL (0.0-0.2); Basophils Percent Auto 1.8 % (0-2); Eosinophils Absolute Auto 0.3 X10*3/uL (0.0-0.4); Eosinophils Percent Auto 4.9 % (0-4); Hematocrit 37.7 % (42.0-52.0); Hemoglobin 13.4 g/dl (14.0-18.0); Imm Gran Abs Auto 0.01 X10*3/uL (0.00-0.03); Imm Gran Pct Auto 0.2 % (0.0-0.4); Lymphocytes Absolute Auto 2.4 X10*3/uL (1.2-4.9); Lymphocytes Percent Auto 46.2 % (20-40); MANUAL DIFF FLAG NO; Mean Corpuscular HGB Conc 35.5 g/dl (31.0-36.0); Mean Corpuscular Volume 84.5 fL (80.0-98.0); Mean Platelet Volume 9.3 fL (9.4-12.4); Monocytes Absolute Auto 0.5 X10*3/uL (0.1-1.2); Monocytes Percent Auto 9.2 % (2-11); Neutrophils Absolute Auto 1.9 x10*3/uL (2.0-8.3); Neutrophils Percent Auto 37.7 % (45-73); Platelet Count 199 X10*3/uL (160-400); Red Blood Count 4.46 X10*6/uL (4.60-5.80); Red Cell Distribution Width 12.1 % (11.0-16.0); White Blood Count 5.1 X10*3/uL (4.8-10.8)
--- NOTE | 2024-04-27 06:35 | MHC.EDTECH ---
Pt biba from home, changed over into hospital gown, vital signs taken and given to RN. Pt then placed on quality assurance monitor final. Ekg done and given to MD Reyes, labs drawn and sent to lab. Pt resting comfortably resp. even and unlabored.
[2024-04-27 06:48] LABS: Alanine Aminotransferase 54 U/L (0-40); Albumin Level 3.8 g/dL (3.5-5.0); Alkaline Phosphatase 65 U/L (39-117); Anion Gap 13 (12-20); Aspartate Amino Transferase 32 U/L (5-37); Bilirubin Total 0.4 mg/dL (0.0-1.0); Blood Urea Nitrogen 11 mg/dL (9-16); Calcium 9.2 mg/dL (8.4-10.2); Carbon Dioxide 25 mmol/L (22-29); Chloride 107 mmol/L (96-108); Estimated Glomerular Filt Rate > 60; Glucose Random 97 mg/dL (60-115); Potassium 3.5 mmol/L (3.3-5.1); Sodium 141 mmol/L (135-145); Total Protein 6.7 g/dL (6.5-8.0)
--- NOTE | 2024-04-27 06:48 | ED_ITS ---
HPI - General Adult General Chief complaint: Dyspnea Stated complaint: SOB Time Seen by Provider: 04/27/24 06:48 History of Present Illness ED Provider: Korin HOWARD narrative: The patient is a 43-year-old male who comes to the emergency room by ambulance complaining of shortness of breath and chest tightness. He denies fever, sweats, chills. He denies pain or swelling in his legs. He has no history of blood clots. He has had similar symptoms over the last 3 years. He has had multiple ER visits for similar symptoms in the past. He has had had multiple tests to investigate him for these symptoms over the last few years including echocardiogram, stress test, CT pulmonary angiograms. No pathology has been found. The patient says that he is a smoker. He says he quit smoking for awhile and tried vaping instead but did not feel that he did any better when vaping. He then returned to smoking recently. 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 He says that he has a history of anxiety but does not feel that the anxiety medications help much. He rarely takes them. 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 He is currently on Suboxone. He does not really like being on Suboxone. The patient says that he feels anxious all the time. However he does not feel suicidal and does not wish to speak to a counselor today. Related Data Home Medications ?Medication ?Instructions ?Recorded ?Confirmed bupropion HCl 150 mg 24 hr tablet, 150 mg PO QAM 06/04/20 03/21/24 extended release buprenorphine 8 mg-naloxone 2 mg 10 mg sublingual DAILY 06/12/22 03/21/24 sublingual film docusate sodium 100 mg capsule 100 mg PO BID 03/10/23 03/21/24 mirtazapine 15 mg tablet 15 mg PO BEDTIME 03/10/23 03/21/24 duloxetine 60 mg capsule,delayed 60 mg PO DAILY 12/09/23 03/21/24 release loratadine 10 mg tablet 10 mg PO DAILY 12/09/23 03/21/24 Previous Rx's ?Medication ?Instructions ?Recorded hydroxyzine HCl 50 mg tablet 50 mg PO BEDTIME #14 tabs 04/06/22 ibuprofen 600 mg tablet 600 mg PO Q6H PRN pain #30 tabs 11/03/22 diclofenac sodium 1 % topical gel 4 g topical QID 30 days #100 grams 12/17/22 (Voltaren Arthritis Pain) acetaminophen 500 mg tablet 500 mg PO Q6H PRN fever or pain 03/08/23 (Tylenol Extra Strength) #14 tabs calcium polycarbophil 625 mg 1,250 mg (2 x 625 mg) PO DAILY 30 07/14/23 tablet (Fiber Laxative (calcium days #60 tabs polycarbophil)) lactulose 20 gram/30 mL oral 20 g (30 mL) PO DAILY PRN 08/14/23 solution constipation #1,200 mL gabapentin 100 mg capsule 200 mg (2 x 100 mg) PO BEDTIME 30 01/10/24 days #60 caps mesalamine 0.375 gram 1.5 g (4 x 0.375 gram) PO DAILY 01/14/24 capsule,extended release 24 hr #60 caps clonazepam 0.5 mg tablet (Klonopin) 0.5 mg PO BEDTIME PRN 01/17/24 anxiety/sleep #10 tabs esomeprazole magnesium 40 mg 40 mg PO DAILY #30 caps 01/26/24 capsule,delayed release (Nexium) budesonide-formoterol HFA 160 2 puff inhalation BID 30 days 02/02/24 mcg-4.5 mcg/actuation aerosol #10.2 grams inhaler (Symbicort) mesalamine 0.375 gram 1.5 g (4 x 0.375 gram) PO DAILY 04/17/24 capsule,extended release 24 hr #360 caps sucralfate 1 gram tablet 1 g PO BEDTIME #90 tabs 04/21/24 Allergies Allergy/AdvReac Type Severity Reaction Status Date / Time shellfish derived Allergy Intermediate Rash Verified 04/27/24 06:17 Review of Systems 2 Review of Systems: Yes all other systems are reviewed and are negative PMFSH Past Medical History Medical History Hypogonadism, testicular Hilar lymphadenopathy Fibromyalgia GERD (gastroesophageal reflux disease) Scrotal pain Rhinosinusitis 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 Mother No problems noted. Paternal Aunt Lung cancer Social History Social History Alcohol intake: never Patient Tobacco Use Status: Current everyday Tobacco user Tobacco use type: Cigarette Years Smoked: 23 Years e-Cigarette/Vaping Use: Currently Using Advance Directives: No Advance Directives Information Provided: Yes Current occupational status: disabled Physical Exam ED Vital Signs: Vital Signs - 24 hr 04/27/24 06:13 Temperature 97.6 F Pulse Rate 49 L Respiratory Rate 12 Blood Pressure 147/79 H Pulse Oximetry 97 Oxygen Delivery Method Room Air BMI result Body Mass Index 27.4 Const Other: The patient is a fit and healthy looking 43-year-old who was awake and alert and does not appear in any distress. HENMT Other: Face is symmetrical. Mucous membranes moist. Posterior pharynx is normal. Eyes Other: Pupils are round equal, conjunctivae are clear, extraocular movements intact Neck Neck: Yes full ROM, Yes no lymphadenopathy and Yes no JVD Resp Effort & Inspection: normal respiratory effort Auscultation: clear to auscultation bilaterally Cardio Rate: bradycardic Rhythm: regular rhythm Heart sounds: S1 normal heart sound present and S2 normal heart sound present GI Other: Abdomen is soft and nontender Skin General skin exam: no rashes or lesions noted Neuro Other: Awake alert, oriented appropriate, cranial nerves grossly intact, moves all extremities normally Extrem General: Yes full ROM, Yes no pedal edema and Yes no calf tenderness Medical Decision Making Medical Decision Making [facility] Narrative: The patient is a 43-year-old male who presents with a complaint of shortness of breath and chest tightness. He has had multiple workups for similar symptoms over the last few years. He has had mildly abnormal D-dimer is with negative CT PAs. He has had an echocardiogram that is normal. He has had a negative stress test. He presents today with an EKG that is unremarkable aside from bradycardia. Labs are unremarkable. He looks well. The patient is reassured. He was offered an evaluation by the care team but he has not wished to speak to a counselor today. He requested something for his anxiety. He is advised to follow up with his regular doctor. Lab Data 04/27/24 06:25 04/27/24 06:25 Labs: Lab Results 04/27/24 Range/Units 06:25 WBC 5.1 (4.8-10.8) X10*3/uL RBC 4.46 L (4.60-5.80) X10*6/uL Hgb 13.4 L (14.0-18.0) g/dl Hct 37.7 L (42.0-52.0) % MCV 84.5 (80.0-98.0) fL MCH 30.0 (27.0-33.0) pg MCHC 35.5 (31.0-36.0) g/dl RDW 12.1 (11.0-16.0) % Plt Count 199 (160-400) X10*3/uL MPV 9.3 L (9.4-12.4) fL Immature Gran % (Auto) 0.2 (0.0-0.4) % Neut % (Auto) 37.7 L (45-73) % Lymph % (Auto) 46.2 H (20-40) % [place] % (Auto) 9.2 (2-11) % Eos % (Auto) 4.9 H (0-4) % Baso % (Auto) 1.8 (0-2) % Lymph # (Auto) 2.4 (1.2-4.9) X10*3/uL [place] # (Auto) 0.5 (0.1-1.2) X10*3/uL Eos # (Auto) 0.3 (0.0-0.4) X10*3/uL Baso # (Auto) 0.1 (0.0-0.2) X10*3/uL Abs Immat Gran (auto) 0.01 (0.00-0.03) X10*3/uL Absolute Neuts (auto) 1.9 L (2.0-8.3) x10*3/uL Absolute Nucleated RBC 0.000 (0.0-0.012) X10*3/uL Nucleated RBC % (auto) 0.0 (0.0-0.2) /100WBC Discharge Plan Discharge Clinical Impression: Chest pain, Shortness of breath Patient Disposition: Home, Self-Care Additional Instructions: Your testing in the emergency room today is reassuring. I think your heart is probably quite healthy. I recommend that you try to start exercising regularly. You may be able to convince yourself that your heart is actually quite healthy. Also try to stop smoking again. Please follow up soon with your regular doctor. Prescriptions: No Action mesalamine 0.375 gram capsule,extended release 24hr 1.5 g PO DAILY Qty: 360 0RF sucralfate 1 gram tablet 1 g PO BEDTIME Qty: 90 0RF ibuprofen 600 mg tablet 600 mg PO Q6H PRN (Reason: pain) Qty: 30 0RF hydroxyzine HCl 50 mg tablet 50 mg PO BEDTIME Qty: 14 0RF lactulose 20 gram/30 mL solution 20 g PO DAILY PRN (Reason: constipation) Qty: 1200 0RF mesalamine 0.375 gram capsule,extended release 24hr 1.5 g PO DAILY Qty: 60 0RF clonazepam [Klonopin] 0.5 mg tablet 0.5 mg PO BEDTIME PRN (Reason: anxiety/sleep) Qty: 10 0RF Rx Instructions: administer 30 minutes before bedtime acetaminophen [Tylenol Extra Strength] 500 mg tablet 500 mg PO Q6H PRN (Reason: fever or pain) Qty: 14 0RF bupropion HCl 150 mg tablet extended release 24 hr 150 mg PO QAM buprenorphine-naloxone 8-2 mg film 10 mg sublingual DAILY diclofenac sodium [Voltaren Arthritis Pain] 1 % gel 4 g topical QID 30 Days Qty: 100 0RF Rx Instructions: apply to single knee, ankle, foot; for foot includes sole/toes/top of foot esomeprazole magnesium [Nexium] 40 mg capsule,delayed release(DR/EC) 40 mg PO DAILY Qty: 30 5RF budesonide-formoterol [Symbicort] 160-4.5 mcg/actuation HFA aerosol inhaler 2 puff inhalation BID 30 Days Qty: 10.2 11RF docusate sodium 100 mg capsule 100 mg PO BID mirtazapine 15 mg tablet 15 mg PO BEDTIME calcium polycarbophil [Fiber Laxative (ca polycarbo)] 625 mg tablet 1,250 mg PO DAILY 30 Days Qty: 60 3RF duloxetine 60 mg capsule,delayed release(DR/EC) 60 mg PO DAILY loratadine 10 mg tablet 10 mg PO DAILY gabapentin 100 mg capsule 200 mg PO BEDTIME 30 Days Qty: 60 6RF Referrals: Rik Flaherty MD [Physician] - (Chest pain and shortness of breath) Print Language: Taiwanese
[2024-04-27 06:54] LABS: Troponin-I High Sensitivity 7.3 ng/L (<3.5-35.0)
[2024-04-27 08:33] VITALS: BP 144/84; PULSE 52; RESP 16; TEMP 36.4; O2SAT 98
== END 2024-04-27 08:34 | disposition home or self-care (01) ==
PROVIDERS: Emergency Provider Emergency Medicine
DX: R07.9 Chest pain, unspecified (principal); R06.02 Shortness of breath; F41.9 Anxiety disorder, unspecified; F17.210 Nicotine dependence, cigarettes, uncomplicated; F11.20 Opioid dependence, uncomplicated; Z79.899 Other long term (current) drug therapy
CPT/HCPCS: 36415; 71045; 80053; 84484; 85025; 86140; 93005; 99283

== ENCOUNTER 2024-05-03 10:42 | Outpatient (REF) | payer OTHER, SELFPAY ==
[2024-05-03 12:31] LABS: Iron 84 mcg/dL (45-160); Percent Iron Saturation 30 % (15-50); Total Iron Binding Capacity 282 mcg/dL (228-428); Unsaturated Iron Binding 198 ug/dL
[2024-05-03 12:42] LABS: Cortisol Random 12.8 ug/dL
[2024-05-03 12:52] LABS: Free T4 (Free Thyroxine) 0.93 ng/dL (0.71-1.85); Thyroid Stimulating Hormone 1.72 uIU/mL (0.32-4.0)
[2024-05-04 12:49] LABS: Prolactin 8.1 ng/mL (2.0-18.0)
[2024-05-04 13:58] LABS: Transferrin 252 mg/dL (188-341)
[2024-05-09 20:33] LABS: Testosterone, Free 26.5 pg/mL (35.0-155.0); Testosterone, Total 128 ng/dL (250-1100)
[2024-05-09 20:43] LABS: Prolactin Undiluted 8.2 ng/mL (2.0-18.0)
== END 2024-05-03 10:43 | disposition home or self-care (01) ==
LOC: HO.LAB 10:42
PROVIDERS: PCP Internal Medicine; Visit Provider Internal Medicine Endocrinology, Diabetes & Metabolism
DX: E29.1 Testicular hypofunction (principal)
CPT/HCPCS: 36415; 82533; 83540; 84146; 84402; 84403; 84439; 84443; 84466

== ENCOUNTER 2024-05-08 09:44 | Emergency (ER) | payer OTHER, SELFPAY ==
--- NOTE | 2024-05-08 | ECG_ITS ---
Test Reason : CHEST PAIN Blood Pressure : / mmHG Vent. Rate : 051 BPM Atrial Rate : 051 BPM P-R Int : 142 ms QRS Dur : 090 ms QT Int : 436 ms P-R-T Axes : 049 054 040 degrees QTc Int : 401 ms Sinus bradycardia Otherwise normal ECG When compared with ECG of 27-APR-2024 06:26, T wave inversion no longer evident in Inferior leads Referred By: Generic ED Physician Electronically Signed By:
[2024-05-08 09:57] VITALS: BP 115/80; PULSE 64; O2SAT 98
[2024-05-08 10:08] VITALS: BP 124/78; PULSE 59; RESP 16; TEMP 36.6; O2SAT 98; BMI 23.5
[2024-05-08 10:21] LABS: MANUAL DIFF FLAG NO
[2024-05-08 10:22] LABS: Basophils Absolute Auto 0.1 X10*3/uL (0.0-0.2); Basophils Percent Auto 1.8 % (0-2); Eosinophils Absolute Auto 0.3 X10*3/uL (0.0-0.4); Eosinophils Percent Auto 6.3 % (0-4); Hematocrit 39.2 % (42.0-52.0); Hemoglobin 13.6 g/dl (14.0-18.0); Imm Gran Abs Auto 0.01 X10*3/uL (0.00-0.03); Imm Gran Pct Auto 0.2 % (0.0-0.4); Lymphocytes Percent Auto 40.8 % (20-40); Mean Corpuscular HGB Conc 34.7 g/dl (31.0-36.0); Mean Corpuscular Hemoglobin 29.6 pg (27.0-33.0); Mean Corpuscular Volume 85.4 fL (80.0-98.0); Mean Platelet Volume 9.5 fL (9.4-12.4); Monocytes Absolute Auto 0.4 X10*3/uL (0.1-1.2); Monocytes Percent Auto 8.1 % (2-11); Neutrophils Absolute Auto 2.1 x10*3/uL (2.0-8.3); Neutrophils Percent Auto 42.8 % (45-73); Platelet Count 213 X10*3/uL (160-400); Red Blood Count 4.59 X10*6/uL (4.60-5.80); Red Cell Distribution Width 12.1 % (11.0-16.0); White Blood Count 4.9 X10*3/uL (4.8-10.8)
[2024-05-08 10:36] LABS: Anion Gap 11 (12-20); Blood Urea Nitrogen 11 mg/dL (9-16); Calcium 9.1 mg/dL (8.4-10.2); Carbon Dioxide 25 mmol/L (22-29); Chloride 109 mmol/L (96-108); Creatinine Clr Calc Pharmacy 102.3; Estimated Glomerular Filt Rate > 60; Glucose Random 96 mg/dL (60-115); Potassium 3.9 mmol/L (3.3-5.1); Sodium 141 mmol/L (135-145)
[2024-05-08 10:44] LABS: Troponin-I High Sensitivity 7.7 ng/L (<3.5-35.0)
== END 2024-05-08 12:54 | disposition left against medical advice (07) ==
PROVIDERS: Emergency Provider Emergency Medicine
DX: R07.9 Chest pain, unspecified (principal); Z53.21 Procedure and treatment not carried out due to patient leaving prior to being seen by health care provider
CPT/HCPCS: 36415; 80048; 84484; 85025; 93005; 99281; 99283

== ENCOUNTER 2024-05-11 16:43 | Emergency (ER) | payer OTHER, SELFPAY ==
[2024-05-11 17:13] VITALS: BP 127/79; PULSE 65; RESP 16; TEMP 36.9; O2SAT 99; BMI 26.6
--- NOTE | 2024-05-11 17:15 | ED_ITS ---
HPI - Wound/Laceration General Chief Complaint: Wound/Laceration Stated Complaint: left thumb pain Time Seen by Provider: 05/11/24 17:15 Source: patient Mode of arrival: ambulatory Limitations: no limitations History of Present Illness ED Provider: Gilda Sousa PA-C HPI narrative: 43-year-old male presents to the ER for evaluation of right hand pain, swelling and redness that started yesterday after doing yd work 2 days ago and getting stuck with a thorn. Patient reports there was a thorn that accidentally punctured his skin at the base of his left thumb, he pulled the thorn out compl etely. He reports over the next 2 days he developed pain, swelling, redness in the area. No drainage. The pain is worse with movement of the thumb. He has had no fever or chills. He is not diabetic. He is not up-to-date on his tetanus shot Onset (ago): day(s) Extremity Location: left: hand Place: home Patient tetanus UTD: No Context: accidental Associated symptoms: pain Related Data Home Medications ?Medication ?Instructions ?Recorded ?Confirmed bupropion HCl 150 mg 24 hr tablet, 150 mg PO QAM 06/04/20 03/21/24 extended release buprenorphine 8 mg-naloxone 2 mg 10 mg sublingual DAILY 06/12/22 03/21/24 sublingual film docusate sodium 100 mg capsule 100 mg PO BID 03/10/23 03/21/24 mirtazapine 15 mg tablet 15 mg PO BEDTIME 03/10/23 03/21/24 duloxetine 60 mg capsule,delayed 60 mg PO DAILY 12/09/23 03/21/24 release loratadine 10 mg tablet 10 mg PO DAILY 12/09/23 03/21/24 Previous Rx's ?Medication ?Instructions ?Recorded hydroxyzine HCl 50 mg tablet 50 mg PO BEDTIME #14 tabs 04/06/22 ibuprofen 600 mg tablet 600 mg PO Q6H PRN pain #30 tabs 11/03/22 diclofenac sodium 1 % topical gel 4 g topical QID 30 days #100 grams 12/17/22 (Voltaren Arthritis Pain) acetaminophen 500 mg tablet 500 mg PO Q6H PRN fever or pain 03/08/23 (Tylenol Extra Strength) #14 tabs calcium polycarbophil 625 mg 1,250 mg (2 x 625 mg) PO DAILY 30 07/14/23 tablet (Fiber Laxative (calcium days #60 tabs polycarbophil)) lactulose 20 gram/30 mL oral 20 g (30 mL) PO DAILY PRN 08/14/23 solution constipation #1,200 mL gabapentin 100 mg capsule 200 mg (2 x 100 mg) PO BEDTIME 30 01/10/24 days #60 caps mesalamine 0.375 gram 1.5 g (4 x 0.375 gram) PO DAILY 01/14/24 capsule,extended release 24 hr #60 caps clonazepam 0.5 mg tablet (Klonopin) 0.5 mg PO BEDTIME PRN 01/17/24 anxiety/sleep #10 tabs esomeprazole magnesium 40 mg 40 mg PO DAILY #30 caps 01/26/24 capsule,delayed release (Nexium) budesonide-formoterol HFA 160 2 puff inhalation BID 30 days 02/02/24 mcg-4.5 mcg/actuation aerosol #10.2 grams inhaler (Symbicort) mesalamine 0.375 gram 1.5 g (4 x 0.375 gram) PO DAILY 04/17/24 capsule,extended release 24 hr #360 caps sucralfate 1 gram tablet 1 g PO BEDTIME #90 tabs 04/21/24 cephalexin 500 mg capsule 500 mg PO Q6H 7 days #28 caps 05/11/24 doxycycline hyclate 100 mg tablet 100 mg PO BID #14 tabs 05/11/24 ibuprofen 600 mg tablet 600 mg PO Q8H PRN pain #10 tabs 05/11/24 Allergies Allergy/AdvReac Type Severity Reaction Status Date / Time shellfish derived Allergy Intermediate Rash Verified 05/11/24 17:14 Review of Systems Review of Systems: Yes all other systems are reviewed and are negative [facility] Past Medical History Medical History Hypogonadism, testicular Hilar lymphadenopathy Fibromyalgia GERD (gastroesophageal reflux disease) Scrotal pain Rhinosinusitis 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 Mother No problems noted. Paternal Aunt Lung cancer Social History Social History Alcohol intake: never Patient Tobacco Use Status: Current everyday Tobacco user Tobacco use type: Cigarette Years Smoked: 23 Years e-Cigarette/Vaping Use: Currently Using Advance Directives: No Advance Directives Information Provided: No Do you have a plan to hurt others: No Plan Current occupational status: disabled Physical Exam Vital Signs: Vital Signs: Last Vital Signs Temp 98.5 F 05/11/24 17:26 Pulse 80 05/11/24 17:26 Resp 16 05/11/24 17:26 BP 132/78 05/11/24 17:26 Pulse Ox 99 05/11/24 17:13 O2 Del Method Room Air 05/11/24 17:26 BMI result Body Mass Index 26.6 Appearance: Alert. Oriented X3. No acute distress. HEENT: normal inspection CVS: Normal heart rate and rhythm. Pulses normal. Respiratory: No respiratory distress. Skin: Skin warm and dry. Normal skin color. Normal skin turgor. No rashes. Extremities: right lateral thumb with a single puncture site with surrounding mild erythema and warmth with associated tenderness of the MCP of the thumb, thenar eminence. Tenderness with full extension of the thumb. Able to oppose the thumb to the 2nd and 3rd digits but not the 4th and 5th. No area of fluctuance or induration. Cap refill less than 3 seconds Neuro: Oriented X 3. No motor deficit. No sensory deficit. Medications Administered Discontinued Medications Generic Name Dose Route Start Last Admin Trade Name Freq PRN Reason Stop Dose Admin Diphtheria/Tetanus/Acell Pertussis 0.5 ml 05/11/24 17:15 05/11/24 17:25 Diphth,Pertus(Acell),Tet Adult 0.5 Ml Syringe IM 05/11/24 17:16 0.5 ml .ONCE ONE Administration Medical Decision Making Medical Decision Making MDM Narrative: 43-year-old male presents to the ER for evaluation of right hand pain, redness, swelling that started a couple of days ago after being pricked by a thorn, symptoms have been worsening. Tdap is not up-to-date. He has limited range of motion due to pain and swelling. There is no evidence of sausage digit, low suspicion of tenosynovitis. No evidence of foreign body. No evidence of abscess, no induration or fluctuance on examination. No mechanism to cause fracture. Hold off on x-ray. will start on keflex and doxycycline for broad coverage given strict return precautions. tdap given. Differential Diagnosis Differential Diagnoses: The differential diagnosis associated with the presentation includes cellulitis, abscess, tenosynovitis, osteomyelitis External Record Review External record reviewed: Outpatient record and Prior outpatient labs Tests considered The following testing was considered but not selected: xr considered, low suspicion for osteo or FB Prescription Management I considered prescription management with: Pain Medication and Antibiotic Critical Care Time Critical Care Time Critical Care Time: No Discharge Plan Discharge Clinical Impression: Cellulitis Patient Disposition: Home, Self-Care Instructions: Cellulitis (DC), Warm Compress or Soak (ED) Additional Instructions: Take the prescribed antibiotics as directed, complete the entire course and do not miss any doses Use warm compresses several times per day If you develop new or worsening symptoms call 911 or come back to the ER for further evaluation. Prescriptions: New doxycycline hyclate 100 mg tablet 100 mg PO BID Qty: 14 0RF cephalexin 500 mg capsule 500 mg PO Q6H 7 Days Qty: 28 0RF ibuprofen 600 mg tablet 600 mg PO Q8H PRN (Reason: pain) Qty: 10 0RF No Action mesalamine 0.375 gram capsule,extended release 24hr 1.5 g PO DAILY Qty: 360 0RF sucralfate 1 gram tablet 1 g PO BEDTIME Qty: 90 0RF ibuprofen 600 mg tablet 600 mg PO Q6H PRN (Reason: pain) Qty: 30 0RF hydroxyzine HCl 50 mg tablet 50 mg PO BEDTIME Qty: 14 0RF lactulose 20 gram/30 mL solution 20 g PO DAILY PRN (Reason: constipation) Qty: 1200 0RF mesalamine 0.375 gram capsule,extended release 24hr 1.5 g PO DAILY Qty: 60 0RF clonazepam [Klonopin] 0.5 mg tablet 0.5 mg PO BEDTIME PRN (Reason: anxiety/sleep) Qty: 10 0RF Rx Instructions: administer 30 minutes before bedtime acetaminophen [Tylenol Extra Strength] 500 mg tablet 500 mg PO Q6H PRN (Reason: fever or pain) Qty: 14 0RF bupropion HCl 150 mg tablet extended release 24 hr 150 mg PO QAM buprenorphine-naloxone 8-2 mg film 10 mg sublingual DAILY diclofenac sodium [Voltaren Arthritis Pain] 1 % gel 4 g topical QID 30 Days Qty: 100 0RF Rx Instructions: apply to single knee, ankle, foot; for foot includes sole/toes/top of foot esomeprazole magnesium [Nexium] 40 mg capsule,delayed release(DR/EC) 40 mg PO DAILY Qty: 30 5RF budesonide-formoterol [Symbicort] 160-4.5 mcg/actuation HFA aerosol inhaler 2 puff inhalation BID 30 Days Qty: 10.2 11RF docusate sodium 100 mg capsule 100 mg PO BID mirtazapine 15 mg tablet 15 mg PO BEDTIME calcium polycarbophil [Fiber Laxative (ca polycarbo)] 625 mg tablet 1,250 mg PO DAILY 30 Days Qty: 60 3RF duloxetine 60 mg capsule,delayed release(DR/EC) 60 mg PO DAILY loratadine 10 mg tablet 10 mg PO DAILY gabapentin 100 mg capsule 200 mg PO BEDTIME 30 Days Qty: 60 6RF Interventions: ED Discharge Assessment Last Done: 05/11/24 17:26 Discharge Date/Time: 05/11/24 17:35 Print Language: Macanese
[2024-05-11] MEDS: Diphth,Pertus(ACell),Tet Adult 0.5 ML SYRINGE IM (17:25)
[2024-05-11 17:26] VITALS: BP 132/78; PULSE 80; RESP 16; TEMP 36.9
== END 2024-05-11 17:35 | disposition home or self-care (01) ==
PROVIDERS: Emergency Provider Emergency Medicine; PCP Internal Medicine
DX: L03.113 Cellulitis of right upper limb (principal); S61.431A Puncture wound without foreign body of right hand, initial encounter; W60.XXXA Contact with nonvenomous plant thorns and spines and sharp leaves, initial encounter; M79.641 Pain in right hand; Y93.H2 Activity, gardening and landscaping; Y92.007 Garden or yard of unspecified non-institutional (private) residence as the place of occurrence of the external cause; Y99.9 Unspecified external cause status; Z23 Encounter for immunization
CPT/HCPCS: 90471; 90715; 99282; 99284

== ENCOUNTER 2024-05-17 03:55 | Emergency (ER) | payer OTHER, SELFPAY ==
--- NOTE | 2024-05-17 | ECG_ITS ---
Test Reason : CHEST PAIN Blood Pressure : / mmHG Vent. Rate : 059 BPM Atrial Rate : 059 BPM P-R Int : 156 ms QRS Dur : 088 ms QT Int : 402 ms P-R-T Axes : 044 044 022 degrees QTc Int : 397 ms Sinus bradycardia Otherwise normal ECG When compared with ECG of 08-MAY-2024 10:32, No significant change was found Referred By: Generic ED Physician Electronically Signed By:CHU DEVLIN
--- NOTE | ~2024-05-17 | XR_ITS ---
EXAMINATION: XR CHEST CLINICAL INFORMATION: Chest pain COMPARISON: Chest radiograph 04/27/2024 TECHNIQUE: 2 views of the chest were obtained. FINDINGS: The lungs are adequately expanded. No focal consolidation. No pleural effusions, edema or pneumothorax. The cardiomediastinal silhouette is within normal limits. No acute osseous abnormality. XR/XR chest 2V IMPRESSION: No acute pulmonary disease. Electronically signed by: Kendell Pedro MD 05/17/2024 08:36 AM EDT
[2024-05-17 04:01] VITALS: BP 138/69; PULSE 63; RESP 18; TEMP 36.9; O2SAT 97; BMI 26.6
[2024-05-17 04:18] LABS: Basophils Absolute Auto 0.1 X10*3/uL (0.0-0.2); Basophils Percent Auto 1.7 % (0-2); Eosinophils Absolute Auto 0.4 X10*3/uL (0.0-0.4); Hematocrit 39.2 % (42.0-52.0); Hemoglobin 13.5 g/dl (14.0-18.0); Imm Gran Abs Auto 0.01 X10*3/uL (0.00-0.03); Imm Gran Pct Auto 0.2 % (0.0-0.4); Lymphocytes Absolute Auto 2.1 X10*3/uL (1.2-4.9); MANUAL DIFF FLAG NO; Mean Corpuscular HGB Conc 34.4 g/dl (31.0-36.0); Mean Corpuscular Hemoglobin 29.6 pg (27.0-33.0); Mean Platelet Volume 9.2 fL (9.4-12.4); Monocytes Absolute Auto 0.4 X10*3/uL (0.1-1.2); Monocytes Percent Auto 7.6 % (2-11); Neutrophils Absolute Auto 2.8 x10*3/uL (2.0-8.3); Neutrophils Percent Auto 48.5 % (45-73); Platelet Count 215 X10*3/uL (160-400); Red Blood Count 4.56 X10*6/uL (4.60-5.80); White Blood Count 5.8 X10*3/uL (4.8-10.8)
[2024-05-17 04:35] LABS: Alanine Aminotransferase 59 U/L (0-40); Albumin Level 4.2 g/dL (3.5-5.0); Alkaline Phosphatase 70 U/L (39-117); Anion Gap 14 (12-20); Aspartate Amino Transferase 34 U/L (5-37); Bilirubin Total 0.3 mg/dL (0.0-1.0); Blood Urea Nitrogen 15 mg/dL (9-16); Calcium 9.9 mg/dL (8.4-10.2); Carbon Dioxide 28 mmol/L (22-29); Chloride 105 mmol/L (96-108); Estimated Glomerular Filt Rate > 60; Glucose Random 110 mg/dL (60-115); Potassium 4.2 mmol/L (3.3-5.1); Sodium 143 mmol/L (135-145); Total Protein 7.4 g/dL (6.5-8.0)
[2024-05-17 04:38] LABS: Troponin-I High Sensitivity 7.7 ng/L (<3.5-35.0)
--- NOTE | 2024-05-17 07:38 | ED.CHESTPAIN ---
HPI - Chest Pain General Chief Complaint: Chest Pain Stated Complaint: tightness in chest Time Seen by Provider: 05/17/24 07:37 Source: patient Mode of arrival: ambulatory Limitations: no limitations History of Present Illness ED Provider: hua HOWARD narrative: Patient is a 43-year-old male with history of smoking, anxiety, GERD, fibromyalgia, hypogonadism, currently on Suboxone presenting to the emergency department with complaint of shooting chest pain which began around 2am. States that he was resting in bed, watching TV with his when he had several sharp shooting pains to the middle of his chest, lasting only a second. States had additional episodes of these pains while in the waiting room here. History of similar episodes in the past. Denies associated shortness of breath, palpitations. Denies nausea/vomiting/diaphoresis. Denies cough or recent fevers. Denies recent travel, surgery or immobilization. Denies calf pain or swelling. He has been seen here multiple times for similar complaints, has seen cardiology, had normal echo, unremarkable Holter, normal stress echo. MD complaint: chest pain Onset (ago): hour(s) Timing of current episode: episodic Prior episodes: Yes Onset: during rest Pain location: substernal Pain radiation: none Severity: similar to previous episodes Quality: sharp Relieving factors: nothing Exacerbating factors: nothing Treatment prior to arrival: none Related Data Home Medications ?Medication ?Instructions ?Recorded ?Confirmed bupropion HCl 150 mg 24 hr tablet, 150 mg PO QAM 06/04/20 03/21/24 extended release buprenorphine 8 mg-naloxone 2 mg 10 mg sublingual DAILY 06/12/22 03/21/24 sublingual film docusate sodium 100 mg capsule 100 mg PO BID 03/10/23 03/21/24 mirtazapine 15 mg tablet 15 mg PO BEDTIME 03/10/23 03/21/24 duloxetine 60 mg capsule,delayed 60 mg PO DAILY 12/09/23 03/21/24 release loratadine 10 mg tablet 10 mg PO DAILY 12/09/23 03/21/24 Previous Rx's ?Medication ?Instructions ?Recorded hydroxyzine HCl 50 mg tablet 50 mg PO BEDTIME #14 tabs 04/06/22 ibuprofen 600 mg tablet 600 mg PO Q6H PRN pain #30 tabs 11/03/22 diclofenac sodium 1 % topical gel 4 g topical QID 30 days #100 grams 12/17/22 (Voltaren Arthritis Pain) acetaminophen 500 mg tablet 500 mg PO Q6H PRN fever or pain 03/08/23 (Tylenol Extra Strength) #14 tabs calcium polycarbophil 625 mg 1,250 mg (2 x 625 mg) PO DAILY 30 07/14/23 tablet (Fiber Laxative (calcium days #60 tabs polycarbophil)) lactulose 20 gram/30 mL oral 20 g (30 mL) PO DAILY PRN 08/14/23 solution constipation #1,200 mL gabapentin 100 mg capsule 200 mg (2 x 100 mg) PO BEDTIME 30 01/10/24 days #60 caps mesalamine 0.375 gram 1.5 g (4 x 0.375 gram) PO DAILY 01/14/24 capsule,extended release 24 hr #60 caps clonazepam 0.5 mg tablet (Klonopin) 0.5 mg PO BEDTIME PRN 01/17/24 anxiety/sleep #10 tabs esomeprazole magnesium 40 mg 40 mg PO DAILY #30 caps 01/26/24 capsule,delayed release (Nexium) budesonide-formoterol HFA 160 2 puff inhalation BID 30 days 02/02/24 mcg-4.5 mcg/actuation aerosol #10.2 grams inhaler (Symbicort) mesalamine 0.375 gram 1.5 g (4 x 0.375 gram) PO DAILY 04/17/24 capsule,extended release 24 hr #360 caps sucralfate 1 gram tablet 1 g PO BEDTIME #90 tabs 04/21/24 cephalexin 500 mg capsule 500 mg PO Q6H 7 days #28 caps 05/11/24 doxycycline hyclate 100 mg tablet 100 mg PO BID #14 tabs 05/11/24 ibuprofen 600 mg tablet 600 mg PO Q8H PRN pain #10 tabs 05/11/24 Allergies Allergy/AdvReac Type Severity Reaction Status Date / Time shellfish derived Allergy Intermediate Rash Verified 05/17/24 04:03 Review of Systems Review of Systems: As per HPI. 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 Mother No problems noted. Paternal Aunt Lung cancer Social History Social History Alcohol intake: never Patient Tobacco Use Status: Current everyday Tobacco user Tobacco use type: Cigarette Years Smoked: 23 Years e-Cigarette/Vaping Use: Currently Using Advance Directives: No Do you have a plan to hurt others: No Plan Current occupational status: disabled Physical Exam Vital Signs: Vital Signs: Last Vital Signs Temp 98.5 F 05/17/24 04:01 Pulse 63 05/17/24 04:01 Resp 18 05/17/24 04:01 BP 138/69 05/17/24 04:01 Pulse Ox 97 05/17/24 04:01 O2 Del Method Room Air 05/17/24 04:01 BMI result Body Mass Index 26.6 Vital signs have been reviewed and appear to be correct. Blood pressure normal. Heart rate normal. Respiratory rate normal. Temperature normal. Oxygen saturation normal. Const: General: cooperative, healthy appearing and no acute distress Orientation/consciousness: oriented to person, oriented to place, oriented to time and patient oriented x3 Limitations: no limitations HEENT: Head: Yes normocephalic and Yes atraumatic Ears: external ears normal General nose exam: Normal external nose present Face and sinus: Yes face symmetric Mouth: oropharynx normal and moist mucous membranes Throat: Yes uvula midline Eyes: Pupils: Equal, round and reactive pupils present Neck: Neck: Yes normal visual inspection and Yes supple Chest: Chest palpation & inspection: normal inspection of the chest and normal palpation of entire chest wall Resp: Effort & Inspection: normal respiratory effort and able to speak in complete sentences Auscultation: clear to auscultation bilaterally Cardio: Rate: regular rate Rhythm: regular rhythm Heart sounds: S1 normal heart sound present and S2 normal heart sound present GI: Palpation (GI): Soft to palpation and nontender Auscultation: normoactive bowel sounds : General: Yes no CVA tenderness Back/Spine/Pelvis: Back: no CVA tenderness Skin: General skin exam: elasticity normal and turgor normal Neuro: General: oriented to person, oriented to place, oriented to time, patient oriented x3, moves all extremities, no focal motor deficits and CN's II-XI intact bilaterally Cranial nerves: Yes Equal, round and reactive pupils present Cognition (Neuro): normal cognition Extrem: General: Yes full ROM, Yes no pedal edema and Yes no calf tenderness Psych: Mental Status: mental status grossly normal Affect: normal affect Thought process: Normal thought process present Medical Decision Making Medical Decision Making [facility] Narrative: Patient is a 43-year-old male with history of smoking, anxiety, GERD, fibromyalgia, hypogonadism, currently on Suboxone presenting to the emergency department with complaint of shooting chest pain which began around 2am. On exam patient is awake, A+Ox3, VS WNL, afebrile, normal neurological exam without focal deficits, physical exam findings as above. Given reported symptoms and physical exam findings, initial differential includes anxiety, musculoskeletal pain, GERD. Unlikely ACS. Do not suspect PE based on Wells score of 0. EKG shows sinus bradycardia. Labs notable for no leukocytosis, slight anemia similar to prior, troponin 7.7 which is similar to prior. Patient refuses repeat troponin. Patient has been seen in this ED many times for similar complaint, is currently pain free, and has had full workup with cardiology without any concerning findings. X-ray chest notable for no evidence of pneumonia, pneumothorax. Viral serology negative. My interpretation is in agreement with the radiologist's interpretation. Discussed with patient that he should follow up with PCP, anesthesiology resident, technology coordinator. Return precautions discussed. Patient verbalized understanding of and agreement with plan. Differential Diagnosis Differential Diagnoses: The differential diagnosis associated with the presentation includes As per [facility] Admission/Observation Consideration of admission/observation: Escalation of care including admission/observation considered Patient would have been admitted to the hospital had their work up had any findings where hospital admission was appropriate and their clinical presentation warranted hospital admission. Lab Data [facility] Lab Attestation statement: I reviewed the patient's lab results. As per [facility] 05/17/24 04:11 05/17/24 04:11 Labs: Lab Results 05/17/24 05/17/24 Range/Units 04:11 08:01 WBC 5.8 (4.8-10.8) X10*3/uL RBC 4.56 L (4.60-5.80) X10*6/uL Hgb 13.5 L (14.0-18.0) g/dl Hct 39.2 L (42.0-52.0) % MCV 86.0 (80.0-98.0) fL MCH 29.6 (27.0-33.0) pg MCHC 34.4 (31.0-36.0) g/dl RDW 12.0 (11.0-16.0) % Plt Count 215 (160-400) X10*3/uL MPV 9.2 L (9.4-12.4) fL Immature Gran % (Auto) 0.2 (0.0-0.4) % Neut % (Auto) 48.5 (45-73) % Lymph % (Auto) 36.0 (20-40) % [place] % (Auto) 7.6 (2-11) % Eos % (Auto) 6.0 H (0-4) % Baso % (Auto) 1.7 (0-2) % Lymph # (Auto) 2.1 (1.2-4.9) X10*3/uL [place] # (Auto) 0.4 (0.1-1.2) X10*3/uL Eos # (Auto) 0.4 (0.0-0.4) X10*3/uL Baso # (Auto) 0.1 (0.0-0.2) X10*3/uL Abs Immat Gran (auto) 0.01 (0.00-0.03) X10*3/uL Absolute Neuts (auto) 2.8 (2.0-8.3) x10*3/uL Absolute Nucleated RBC 0.000 (0.0-0.012) X10*3/uL Nucleated RBC % (auto) 0.0 (0.0-0.2) /100WBC Sodium 143 (135-145) mmol/L Potassium 4.2 (3.3-5.1) mmol/L Chloride 105 (96-108) mmol/L Carbon Dioxide 28 (22-29) mmol/L Anion Gap 14 (12-20) BUN 15 (9-16) mg/dL Creatinine 1.13 (0.5-1.4) mg/dL Estim Creat Clear Calc 76.0 Estimated GFR > 60 Random Glucose 110 (60-115) mg/dL Calcium 9.9 D (8.4-10.2) mg/dL Total Bilirubin 0.3 (0.0-1.0) mg/dL AST 34 (5-37) U/L ALT 59 H (0-40) U/L Alkaline Phosphatase 70 (39-117) U/L Troponin I High Sens 7.7 (<3.5-35.0) ng/L Total Protein 7.4 (6.5-8.0) g/dL Albumin 4.2 (3.5-5.0) g/dL Influenza Type A (PCR) NEGATIVE (Negative) Influenza Type B (PCR) NEGATIVE (Negative) RSV RNA Qual (PCR) NEGATIVE (Negative) SARS-CoV-2 RNA (RT-PCR) NEGATIVE (Negative) Independent Interpretation I performed an independent interpretation of an: EKG (sinus bradycardia, rate 59bpm, normal VT interval and QTc, no significant change from prior) and Plain X-Ray Interpretation: X-ray chest notable for no evidence of pneumonia, pneumothorax. Radiology Impression Discussion of test interpretation with radiology: I have reviewed the radiologist's reading. Radiologist Impression: XR/XR chest 2V IMPRESSION: No acute pulmonary disease. External Record Review External record reviewed: Inpatient record, Office record and Outpatient record Discharge Plan Discharge Clinical Impression: Chest pain Patient Disposition: Home, Self-Care Instructions: Chest Pain (DC), Gastroesophageal Reflux Disease (DC), Noncardiac Chest Pain (ED) Additional Instructions: You were evaluated in the emergency department today for chest pain. Your evaluation has shown no signs of medical conditions requiring emergent intervention at this time, however we recommend that you follow-up with your primary care physician or your anesthesiology resident and technology coordinator for further testing as an outpatient. Please schedule an appointment for follow-up with your primary care physician as soon as possible. Return to the emergency department if you experience worsening or uncontrolled chest pain, shortness of breath, lightheadedness, feeling faint, loss of consciousness, nausea, vomiting, or any other concerning symptoms. Prescriptions: No Action mesalamine 0.375 gram capsule,extended release 24hr 1.5 g PO DAILY Qty: 360 0RF sucralfate 1 gram tablet 1 g PO BEDTIME Qty: 90 0RF ibuprofen 600 mg tablet 600 mg PO Q6H PRN (Reason: pain) Qty: 30 0RF hydroxyzine HCl 50 mg tablet 50 mg PO BEDTIME Qty: 14 0RF lactulose 20 gram/30 mL solution 20 g PO DAILY PRN (Reason: constipation) Qty: 1200 0RF mesalamine 0.375 gram capsule,extended release 24hr 1.5 g PO DAILY Qty: 60 0RF clonazepam [Klonopin] 0.5 mg tablet 0.5 mg PO BEDTIME PRN (Reason: anxiety/sleep) Qty: 10 0RF Rx Instructions: administer 30 minutes before bedtime acetaminophen [Tylenol Extra Strength] 500 mg tablet 500 mg PO Q6H PRN (Reason: fever or pain) Qty: 14 0RF doxycycline hyclate 100 mg tablet 100 mg PO BID Qty: 14 0RF cephalexin 500 mg capsule 500 mg PO Q6H 7 Days Qty: 28 0RF ibuprofen 600 mg tablet 600 mg PO Q8H PRN (Reason: pain) Qty: 10 0RF bupropion HCl 150 mg tablet extended release 24 hr 150 mg PO QAM buprenorphine-naloxone 8-2 mg film 10 mg sublingual DAILY diclofenac sodium [Voltaren Arthritis Pain] 1 % gel 4 g topical QID 30 Days Qty: 100 0RF Rx Instructions: apply to single knee, ankle, foot; for foot includes sole/toes/top of foot esomeprazole magnesium [Nexium] 40 mg capsule,delayed release(DR/EC) 40 mg PO DAILY Qty: 30 5RF budesonide-formoterol [Symbicort] 160-4.5 mcg/actuation HFA aerosol inhaler 2 puff inhalation BID 30 Days Qty: 10.2 11RF docusate sodium 100 mg capsule 100 mg PO BID mirtazapine 15 mg tablet 15 mg PO BEDTIME calcium polycarbophil [Fiber Laxative (ca polycarbo)] 625 mg tablet 1,250 mg PO DAILY 30 Days Qty: 60 3RF duloxetine 60 mg capsule,delayed release(DR/EC) 60 mg PO DAILY loratadine 10 mg tablet 10 mg PO DAILY gabapentin 100 mg capsule 200 mg PO BEDTIME 30 Days Qty: 60 6RF Print Language: Kosovan
[2024-05-17 08:46] LABS: Influenza A PCR NEGATIVE (Negative); Influenza B PCR NEGATIVE (Negative); Resp Syncy Virus RNA Qual PCR NEGATIVE (Negative); SARS COV2 PCR INHOUSE NEGATIVE (Negative)
[2024-05-17 09:30] VITALS: BP 138/69; PULSE 63; RESP 18; TEMP 36.9; O2SAT 97
== END 2024-05-17 09:31 | disposition home or self-care (01) ==
PROVIDERS: Registered Nurse Emergency; Emergency Provider Emergency Medicine Emergency Medical Services; PCP Internal Medicine
DX: R07.89 Other chest pain (principal); R00.1 Bradycardia, unspecified; F17.210 Nicotine dependence, cigarettes, uncomplicated; Z79.899 Other long term (current) drug therapy; Z03.818 Encounter for observation for suspected exposure to other biological agents ruled out
CPT/HCPCS: 0241U; 36415; 71046; 80053; 84484; 85025; 93005; 99283

== ENCOUNTER 2024-05-28 15:51 | Outpatient (REF) | payer OTHER, SELFPAY ==
--- NOTE | ~2024-05-28 | MR_ITS ---
EXAMINATION: MR BRAIN WITHOUT AND WITH CONTRAST CLINICAL INFORMATION: Hypogonadism COMPARISON: MRI of the brain with and without contrast 07/22/2022 TECHNIQUE: Multiplanar multisequence MR imaging of the brain was obtained without and following the administration of 7.5 mL Gadavist intravenous contrast. FINDINGS: Somewhat motion degraded examination There is no acute infarct on diffusion-weighted imaging. There is no intracranial hemorrhage on iron-sensitive imaging. No extra-axial collection or mass effect/herniation. Normal parenchymal signal characteristics. No hydrocephalus. The ventricles are normal in morphology and size. Redemonstration of right choroidal fissure cyst. No abnormal parenchymal or extra-axial enhancement. The major flow voids at the skull base are preserved. The midline structures are normal. The cerebellar tonsils are normally positioned. The craniocervical junction is normal. Marrow signal is within normal limits. The visualized soft tissues are without significant abnormality. Trace scattered paranasal sinus mucosal thickening. MR/MR head/brain wo/w con IMPRESSION: Unremarkable contrast enhanced MRI of the brain. Please note that this routine MRI is not tailored to evaluation of the sellar contents which are suboptimally assessed. No gross abnormality of the sellar or parasellar region. Electronically signed by: Ankit Dumont MD 06/13/2024 08:15 PM EDT
[2024-05-28] MEDS: gadobutroL 7.5 ML VIAL IVPUSH (16:43)
== END 2024-05-28 15:52 | disposition home or self-care (01) ==
LOC: HO.MRI 15:51
PROVIDERS: PCP Internal Medicine; Visit Provider Internal Medicine
DX: E29.1 Testicular hypofunction (principal)
CPT/HCPCS: 70553; A9585

== ENCOUNTER 2024-05-30 08:54 | Outpatient (AMB) | payer OTHER, SELFPAY ==
[2024-05-30 09:06] VITALS: BP 114/60; PULSE 64; BMI 27.0
--- NOTE | 2024-05-30 09:06 | MHC.OFFVIS ---
Vital Signs 05/30/24 09:06 Height 5 ft 6 in Weight 167 lb 1.766 oz BMI 27.0 BP 114/60 Blood Pressure Location Lt brachial Position Sitting Pulse 64 Pulse Source Pulse Oximeter Intake Visit Reasons: [facility]/tightness in chest Currency Counter Required: No Allergies shellfish derived Allergy (Intermediate, Verified 05/30/24 09:08) Rash Medication List - Last Reconciled 05/30/24 by CASSANDRA Travis acetaminophen (Tylenol Extra Strength) 500 mg PO Q6H PRN budesonide-formoterol 160-4.5 mcg/actuation (Symbicort) 2 puffs inhalation BID 30 days buprenorphine-naloxone 8-2 mg 10 mg sublingual DAILY bupropion HCl XL 150 mg PO QAM calcium polycarbophil (Fiber Laxative (calcium polycarbophil)) 1,250 mg (2 x 625 mg) PO DAILY 30 days cephalexin 500 mg PO Q6H 7 days diclofenac sodium 1% (Voltaren Arthritis Pain) 4 grams topical QID 30 days docusate sodium 100 mg PO BID duloxetine 60 mg PO DAILY esomeprazole magnesium (Nexium) 40 mg PO DAILY gabapentin 200 mg (2 x 100 mg) PO BEDTIME 30 days hydroxyzine HCl 25 mg PO BID ibuprofen 600 mg PO Q8H PRN lactulose 20 grams (30 mL) PO DAILY PRN loratadine 10 mg PO DAILY mesalamine ER 1.5 grams (4 x 0.375 gram) PO DAILY mirtazapine 15 mg PO BEDTIME sertraline 25 mg PO DAILY sucralfate 1 g PO BEDTIME HPI HPI [facility]/tightness in chest: Details: Cody is a 43-year-old male no known cardiac history, with fibromyalgia, heart palpitations and recurrent reports of chest discomfort who has been seen in the [facility] emergency room 3 times in the last few months with chest discomfort and ruled out for ACS. Today he reports that he still has a poking sensation in his anterior chest which causes him much concern and anxiety. He has had this symptom when at rest and during activity. He does not feel it is getting worse in severity or frequency. He strongly believes that something is wrong with his heart. He will feel his heart going fast at times which again creates anxiety for him. No lightheadedness, presyncope, syncope, falls. No shortness of breath, PND, orthopnea or edema. He is on disability due to visual issues and prior corneal transplant also fibromyalgia. Tries to remain active, no routine exercise. 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 Mother No problems noted. Paternal Aunt Lung cancer Social History Alcohol intake: never Patient Tobacco Use Status: Current everyday Tobacco user Tobacco use type: Cigarette Years Smoked: 23 Years e-Cigarette/Vaping Use: Currently Using Current occupational status: disabled Review of Systems Const All systems reviewed & are unremarkable except as noted in HPI and below ENT Denies dizziness Card Reports chest pain, Reports chest pain at rest, Denies chest pain with activity, Denies rapid heart rate, Denies pedal edema, Denies edema, Denies leg edema, Denies lightheadedness, Denies palpitations, Denies dyspnea, Denies dyspnea on exertion and Denies orthopnea Resp Denies cough, Denies dyspnea and Denies dyspnea on exertion GI Denies hematochezia and Denies change in stool character Musc Denies abnormal gait, Denies limited range of motion, Denies muscle cramps, Denies muscle weakness, Denies numbness, Denies radiating pain into limb, Denies stiffness and Denies tingling Neuro Denies abnormal gait, Denies dizziness, Denies numbness and Denies tingling Endo Denies palpitations Physical Exam Vital Signs: Last Vital Signs Pulse 64 05/30/24 09:06 BP 114/60 05/30/24 09:06 BMI result Body Mass Index 27.0 Const General: cooperative, healthy appearing, comfortable and no acute distress Orientation/consciousness: patient oriented x3 Resp Effort & Inspection: normal respiratory effort Auscultation: clear to auscultation bilaterally, no crackles, no rales, no rhonchi and no wheezes Cardio Rate: regular rate Rhythm: regular rhythm Heart sounds: S1 normal heart sound present, S2 normal heart sound present, no murmurs and no rubs Neuro General: patient oriented x3 Extrem General: Yes normal to inspection and No no pedal edema Psych Appearance: grossly normal Mental Status: mental status grossly normal Speech and movement: Normal speech and movement present Assessment & Plan Assessment & Plan (1) Chest discomfort: Comment: coracoid process tenderness likely to strain Code(s): R07.89 - Other chest pain Category: Medical Plan: History of atypical chest discomfort with prior cardiac evaluation with no cardiac findings. Last echo done on 02/18/2022 was normal study. Stress echocardiogram was done on 05/21/2023 with exercise 9 minutes 45 seconds without EKG changes or echo evidence of ischemia. He has a low cardiac risk profile. Offered reassurance at last visit that his symptoms seems noncardiac in nature. Since March 2024 he has been in the emergency room 3 times with chest discomfort. He believes this is a cardiac symptom. He has ruled out for ACS on each occasion. His EKG does not show ischemic findings. At this time will order a CTA of the coronary arteries to ensure there was no obstructive disease or anomaly causing his symptom. Spent time reviewing the Signs and symptoms of typical angina with him. Tried to offer him reassurance. Cardiology follow-up re months, sooner if needed. (2) Anxiety: Comment: Follow-up PCP Code(s): F41.9 - Anxiety disorder, unspecified Category: Medical Plan: Patient reports issues with chronic anxiety. He does not believe his chest symptom is brought on by anxiety. (3) Heart palpitations: Code(s): R00.2 - Palpitations Category: Medical Plan: Reports of heart palpitations like his heart is beating fast. Symptom can coincide with his anxiety symptoms. Holter monitor done on 04/27/2023 for 4.5 days showed sinus rhythm with average heart rate 71 beats per minute rare ectopy, symptoms correlated with sinus rhythm. A Holter monitor was done on 02/18/2022 for 2 days showing sinus rhythm average heart rate 73 beats per minute, rare ectopy, one 8 beat SVT noted. At this time he is not describing symptoms that suggest issues with recurrent SVT. Discussed avoidance of stimulants, increasing physical activity as tolerated. (4) Hospital discharge follow-up: Code(s): Z09 - Encounter for follow-up examination after completed treatment for conditions other than malignant neoplasm Category: Medical Plan: ER visits for chest pain on 04/11, 04/27 and 05/17/2024 Plan Time spent on chart review, documentation, interview and assessment. Orders: Orders CT Cardiac Coronary Angio Today R07.89 - Other chest pain Basic Metabolic Panel Today R07.89 - Other chest pain Coding Level of Care Code Est Pt Level 4 (28605) Diagnoses Chest discomfort R07.89 Anxiety F41.9 Heart palpitations R00.2 Hospital discharge follow-up Z09 Time Spent (min) 28
== END 2024-05-30 09:36 | disposition home or self-care (01) ==
PROVIDERS: PCP Internal Medicine; Visit Provider Nurse Practitioner Family
DX: R07.89 Other chest pain (principal); F41.9 Anxiety disorder, unspecified; R00.2 Palpitations; Z09 Encounter for follow-up examination after completed treatment for conditions other than malignant neoplasm
CPT/HCPCS: 99214

== ENCOUNTER → 2024-05-30 08:54 | Outpatient (BNVA) | payer OTHER, SELFPAY | PROVIDERS: PCP Internal Medicine; Visit Provider Nurse Practitioner Family | DX: Z09 Encounter for follow-up examination after completed treatment for conditions other than malignant neoplasm (principal); R07.89 Other chest pain; F41.9 Anxiety disorder, unspecified; R00.2 Palpitations | CPT/HCPCS: 99212 ==

== ENCOUNTER 2024-06-02 09:04 | Outpatient (AMB) | payer OTHER, SELFPAY ==
[2024-06-02 09:06] VITALS: BP 144/81; PULSE 59; BMI 27.0
--- NOTE | 2024-06-02 09:06 | MHC.OFFVIS ---
Vital Signs 06/02/24 09:06 Height 5 ft 6 in Weight 167 lb 1.766 oz BMI 27.0 BP 144/81 H Blood Pressure Location Rt brachial Position Sitting Pulse 59 Intake Visit Reasons: [facility] 2nd Opinion Intake Note: Patient here for 2nd opinion. C/o burning sensation since endoscopy September 2023. Denies constipation, diarrhea. Reports omeprazole eases the burning. 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 Accompanied by: Self / Same As Patient Allergies shellfish derived Allergy (Intermediate, Verified 06/02/24 09:13) Rash HPI HPI [facility] 2nd Opinion: Details: 43 yr old m here for f/u for crohns and fatty liver, mild lobo here for f/u [place]: E[place]: 09/14/23 focal colitis in cecum, refluc changes, diverticulosis, internal hemorrhoids 11/22/23 CTe:mild colitis sigmoid colitis, hepatic steatosis fecal calprotectin: 10/30- 294 INTERIM: He has epigastric burning but sometimes can be more central--mild can be worse with pizza he took apriso for 2 months but felt no benefit he goes to the bathroom, few times a day no blood in the stool he has been smoking for last few months EXAM: GENERAL: The patient is well developed and nontoxic. VITAL SIGNS:see workflow HEENT: Nonicteric sclerae, PERRLA, EOMI. Oropharynx clear. Moist mucous membranes. Conjunctivae appear well perfused. No thyroid mass. CHEST: Chest wall is nontender. HEART: Regular rate and rhythm without murmurs. LUNGS: Clear to auscultation bilaterally. ABDOMEN: Soft, positive bowel sounds, nontender, no organomegaly.no flank tenderness SKIN: No rash, no excessive bruising, petechiae, or purpura. NEUROLOGIC: Cranial nerves II-XII intact without motor/sensory deficit. Psych: normal affect Recent labs with mild anemia A/P: 1/ Suspected mild to moderate crohns colitis 2/ smoking worsening above 3/ reflux and gastritis PLAN: 1/ Advised on smoking cessation as can worsen crohns 2/ stop PPi for 2 weeks, and h pylori breath test--can use carafate, and go back to nexium thereafter 3/ recheck calprotectin, if still high then entyvio 4/ recheck h pylori, crp, already has recent TB spot on file [facility] Medical History Hypogonadism, testicular Hilar lymphadenopathy Fibromyalgia GERD (gastroesophageal reflux disease) Scrotal pain Rhinosinusitis 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 Mother No problems noted. Paternal Aunt Lung cancer Social History Alcohol intake: never Patient Tobacco Use Status: Current everyday Tobacco user Tobacco use type: Cigarette Years Smoked: 23 Years e-Cigarette/Vaping Use: Currently Using Current occupational status: disabled Physical Exam Vital Signs: Last Vital Signs Pulse 59 06/02/24 09:06 BP 144/81 H 06/02/24 09:06 BMI result Body Mass Index 27.0 Assessment & Plan Assessment & Plan (1) Crohn's disease: Code(s): K50.90 - Crohn's disease, unspecified, without complications Category: Medical Plan: ?entyvio Orders: Orders Lactoferrin, Fecal, Quant. Today K51.50 - Left sided colitis without complications Medications: New sucralfate (Carafate) 10 mL PO BID 1,000 mL 0RF Coding Level of Care Code Est Pt Level 4 (88574) Diagnoses Crohn's disease K50.90
== END 2024-06-02 10:14 | disposition home or self-care (01) ==
PROVIDERS: PCP Internal Medicine; Visit Provider Internal Medicine Gastroenterology
DX: K50.90 Crohn's disease, unspecified, without complications (principal)
CPT/HCPCS: 99214

== ENCOUNTER → 2024-06-02 09:04 | Outpatient (BNVA) | payer OTHER, SELFPAY | PROVIDERS: PCP Internal Medicine; Visit Provider Internal Medicine Gastroenterology | DX: K50.90 Crohn's disease, unspecified, without complications (principal) | CPT/HCPCS: 99212 ==

== ENCOUNTER 2024-06-05 11:37 | Emergency (ER) | payer OTHER, SELFPAY ==
--- NOTE | ~2024-06-05 | XR_ITS ---
EXAMINATION: XR CHEST CLINICAL INFORMATION: Shortness of breath. COMPARISON: May 17, 2024 TECHNIQUE: 2 views of the chest were obtained. FINDINGS: The lungs are well expanded. No focal consolidation. No pleural effusion. Cardiac silhouette is within normal limits. XR/XR chest 2V IMPRESSION: No acute abnormality. Electronically signed by: Tigre Pineda MD 06/05/2024 12:13 PM EDT RP
[2024-06-05 11:43] VITALS: BP 117/57; PULSE 91; RESP 24; TEMP 36.9; O2SAT 99; BMI 26.0
--- NOTE | 2024-06-05 11:43 | ECG_ITS ---
Test Reason : PAIN Blood Pressure : / mmHG Vent. Rate : 070 BPM Atrial Rate : 070 BPM P-R Int : 130 ms QRS Dur : 088 ms QT Int : 408 ms P-R-T Axes : 042 041 029 degrees QTc Int : 440 ms Normal sinus rhythm Normal ECG When compared with ECG of 17-MAY-2024 03:52, No significant change was found Referred By: Ankit Dupree Electronically Signed By:CHU DEVLIN
--- NOTE | 2024-06-05 11:43 | ED.GENADULT ---
HPI - General Adult General Chief complaint: Dyspnea Stated complaint: SOB Time Seen by Provider: 06/05/24 17:00 Source: patient, RN notes reviewed and old records reviewed Mode of arrival: ambulatory History of Present Illness ED Provider: Herminia Hameed PA-C HPI narrative: 43-year-old male with a past medical history fibromyalgia, GERD, anxiety, presenting to the ED complaining intermittent chest pain and shortness of breath x 1 year, worsening today while vacuuming a vehicle. Also reports intermittent upper back pain over the past month. Admits follows with cardiology & is scheduled for coronary CTA tomorrow he believes. Reports similar symptoms in the past, states felt like he was dying. Also reports mild scratchy throat, congestion, and wheezing. Reports symptomatic improvement at present. Denies lightheadedness/dizziness at present, nausea/vomiting, pedal edema, numbness/tingling. Patient had stress echocardiogram on 05/21/2023 which was unremarkable. Related Data Home Medications ?Medication ?Instructions ?Recorded ?Confirmed bupropion HCl 150 mg 24 hr tablet, 150 mg PO QAM 06/04/20 05/30/24 extended release buprenorphine 8 mg-naloxone 2 mg 10 mg sublingual DAILY 06/12/22 05/30/24 sublingual film docusate sodium 100 mg capsule 100 mg PO BID 03/10/23 05/30/24 mirtazapine 15 mg tablet 15 mg PO BEDTIME 03/10/23 05/30/24 duloxetine 60 mg capsule,delayed 60 mg PO DAILY 12/09/23 05/30/24 release loratadine 10 mg tablet 10 mg PO DAILY 12/09/23 05/30/24 hydroxyzine HCl 25 mg tablet 25 mg PO BID 05/30/24 05/30/24 sertraline 25 mg tablet 25 mg PO DAILY 05/30/24 05/30/24 Previous Rx's ?Medication ?Instructions ?Recorded diclofenac sodium 1 % topical gel 4 g topical QID 30 days #100 grams 12/17/22 (Voltaren Arthritis Pain) acetaminophen 500 mg tablet 500 mg PO Q6H PRN fever or pain 03/08/23 (Tylenol Extra Strength) #14 tabs calcium polycarbophil 625 mg 1,250 mg (2 x 625 mg) PO DAILY 30 07/14/23 tablet (Fiber Laxative (calcium days #60 tabs polycarbophil)) lactulose 20 gram/30 mL oral 20 g (30 mL) PO DAILY PRN 08/14/23 solution constipation #1,200 mL gabapentin 100 mg capsule 200 mg (2 x 100 mg) PO BEDTIME 30 01/10/24 days #60 caps esomeprazole magnesium 40 mg 40 mg PO DAILY #30 caps 01/26/24 capsule,delayed release (Nexium) budesonide-formoterol HFA 160 2 puff inhalation BID 30 days 02/02/24 mcg-4.5 mcg/actuation aerosol #10.2 grams inhaler (Symbicort) mesalamine 0.375 gram 1.5 g (4 x 0.375 gram) PO DAILY 04/17/24 capsule,extended release 24 hr #360 caps sucralfate 1 gram tablet 1 g PO BEDTIME #90 tabs 04/21/24 cephalexin 500 mg capsule 500 mg PO Q6H 7 days #28 caps 05/11/24 ibuprofen 600 mg tablet 600 mg PO Q8H PRN pain #10 tabs 05/11/24 sucralfate 100 mg/mL oral 10 ml PO BID #1,000 mL 06/02/24 suspension (Carafate) Allergies Allergy/AdvReac Type Severity Reaction Status Date / Time shellfish derived Allergy Intermediate Rash Verified 06/05/24 11:44 Review of Systems Review of Systems: Yes all other systems are reviewed and are negative Constitutional: Constitutional: Reports as per [facility] Past Medical History Attestation statement: The following information was validated with the patient. 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 Mother No problems noted. Paternal Aunt Lung cancer Social History Social History Alcohol intake: never Patient Tobacco Use Status: Current everyday Tobacco user Tobacco use type: Cigarette Years Smoked: 23 Years e-Cigarette/Vaping Use: Currently Using Advance Directives: No Advance Directives Information Provided: No Current occupational status: disabled Physical Exam ED Vital Signs: Vital Signs - 24 hr 06/05/24 11:43 06/05/24 17:55 06/05/24 18:11 Temperature 98.5 F 97.8 F 97.8 F Pulse Rate 91 55 55 Respiratory Rate 24 H 18 18 Blood Pressure 117/57 L 150/85 H 150/85 H Pulse Oximetry 99 100 100 Oxygen Delivery Method Room Air Room Air Room Air BMI result Body Mass Index 26.0 Const General: cooperative, healthy appearing, no acute distress and anxious Orientation/consciousness: patient oriented x3 Limitations: no limitations HENMT Head: Yes normal to inspection and Yes atraumatic Ears: hearing grossly normal bilaterally General nose exam: Normal external nose present Face and sinus: Yes normal facial exam Eyes General: appearance normal, both eyes and all related structures EOM: EOMs intact bilaterally Neck Neck: Yes normal visual inspection and Yes no meningeal signs Chest Chest palpation & inspection: normal inspection of the chest, no crepitus and no tenderness Resp Effort & Inspection: normal respiratory effort and no respiratory distress Auscultation: no crackles and wheezes (Slight end expiratory bibasilar wheeze) Cardio Rate: regular rate Heart sounds: S1 normal heart sound present and S2 normal heart sound present GI Inspection: Yes normal to inspection Palpation (GI): Soft to palpation, nontender, no guarding and not rigid Back/Spine/Pelvis Other: No midline cervical/thoracic/lumbar spinous tenderness/step-off or deformity. No reproducible back pain Skin Rashes: no rashes Wounds: no wounds Neuro General: patient oriented x3, tone normal and no meningeal signs Cranial nerves: Yes CN's II-XII intact bilaterally Gait exam (Neuro): Normal gait present Extrem General: Yes normal to inspection and Yes no pedal edema Course Course Course Narrative: RME, this is a rapid medical exam performed by Rubén Dupree please refer to primary provider for complete H&P- 43-year-old male presents for evaluation of shortness of breath that he feels was present for 1 year. He has left upper back pain that has been present for the last month. He is well-appearing, unremarkable physical exam, plan for cardiac workup, chest x-ray viral swabs. -slight hypokalemia to 3.2 > p.o. repletion ordered -initial troponin 9.6 > will obtain repeat -viral studies negative XR chest 2V IMPRESSION: No acute abnormality. -1804--repeat troponin without rise, OR unlikely Results discussed with patient including worrisome signs and symptoms and strict return precautions, and when to return to the emergency department. They verbalized understanding and feel safe for discharge at this time. Medications Administered Discontinued Medications Generic Name Dose Route Start Last Admin Trade Name Minor PRN Reason Stop Dose Admin Albuterol Sulfate 4 puff 06/05/24 17:11 06/05/24 17:47 Albuterol Sulfate 90 Mcg 8 Gm Inhaler INHALE 06/05/24 17:12 4 puff ONCE ONE Administration Potassium Chloride 60 meq 06/05/24 17:03 06/05/24 17:47 Potassium Chloride Packet 20 Meq Packet PO 06/05/24 17:04 60 meq ONCE ONE Administration Medical Decision Making Medical Decision Making [facility] Narrative: 43-year-old male with a past medical history fibromyalgia, GERD, anxiety, presenting to the ED complaining intermittent chest pain and shortness of breath x 1 year, worsening today while vacuuming a vehicle. On exam vital tachypneic, NAD, nontoxic appearing, anxious, lungs with slight end expiratory wheeze, no reproducible chest or back pain. Symptoms atypical for ACS. Concern for anxiety vs viral illness. Low suspicion for CHF, PE, dissection. No evidence of HEAD OF MAINTENANCE/retropharyngeal abscess Plan: EKG, labs, CXR, viral studies Please refer to course for remaining clinical decision making, interpretation of labs/imaging results, and discussions with consultants and/or family members. Differential Diagnosis Differential Diagnoses: The differential diagnosis associated with the presentation includes As above Admission/Observation Consideration of admission/observation: Escalation of care including admission/observation considered Lab Data [facility] Lab Attestation statement: I reviewed the patient's lab results. 06/05/24 11:55 06/05/24 11:55 Labs: Lab Results 06/05/24 06/05/24 06/05/24 Range/Units 11:54 11:55 17:23 WBC 6.8 (4.8-10.8) X10*3/uL RBC 4.72 (4.60-5.80) X10*6/uL Hgb 13.8 L (14.0-18.0) g/dl Hct 39.4 L (42.0-52.0) % MCV 83.5 (80.0-98.0) fL MCH 29.2 (27.0-33.0) pg MCHC 35.0 (31.0-36.0) g/dl RDW 11.9 (11.0-16.0) % Plt Count 218 (160-400) X10*3/uL MPV 9.2 L (9.4-12.4) fL Immature Gran % (Auto) 0.3 (0.0-0.4) % Neut % (Auto) 38.4 L (45-73) % Lymph % (Auto) 45.4 H (20-40) % [place] % (Auto) 6.8 (2-11) % Eos % (Auto) 7.2 H (0-4) % Baso % (Auto) 1.9 (0-2) % Lymph # (Auto) 3.1 (1.2-4.9) X10*3/uL [place] # (Auto) 0.5 (0.1-1.2) X10*3/uL Eos # (Auto) 0.5 H (0.0-0.4) X10*3/uL Baso # (Auto) 0.1 (0.0-0.2) X10*3/uL Abs Immat Gran (auto) 0.02 (0.00-0.03) X10*3/uL Absolute Neuts (auto) 2.6 (2.0-8.3) x10*3/uL Absolute Nucleated RBC 0.000 (0.0-0.012) X10*3/uL Nucleated RBC % (auto) 0.0 (0.0-0.2) /100WBC PT 11.2 (10.9-12.4) SEC INR 1.0 (0.9-1.1) Sodium 143 (135-145) mmol/L Potassium 3.2 L D (3.3-5.1) mmol/L Chloride 109 H (96-108) mmol/L Carbon Dioxide 24 (22-29) mmol/L Anion Gap 13 (12-20) BUN 11 (9-16) mg/dL Creatinine 0.93 (0.5-1.4) mg/dL Estim Creat Clear Calc 92.4 Estimated GFR > 60 Random Glucose 120 H (60-115) mg/dL Calcium 9.6 (8.4-10.2) mg/dL Total Bilirubin 0.4 (0.0-1.0) mg/dL AST 34 (5-37) U/L ALT 68 H (0-40) U/L Alkaline Phosphatase 74 (39-117) U/L Troponin I High Sens 9.6 8.2 (<3.5-35.0) ng/L B-Natriuretic Peptide 15 (<100) pg/mL Total Protein 7.6 (6.5-8.0) g/dL Albumin 4.3 (3.5-5.0) g/dL Lipase 23 (8-78) U/L Influenza Type A (PCR) NEGATIVE (Negative) Influenza Type B (PCR) NEGATIVE (Negative) RSV RNA Qual (PCR) NEGATIVE (Negative) SARS-CoV-2 RNA (RT-PCR) NEGATIVE (Negative) Independent Interpretation I performed an independent interpretation of an: EKG (My interpretation EKG normal sinus rhythm rate of 70. QTC 440. No significant change when compared to prior ) and Plain X-Ray Radiology Impression Discussion of test interpretation with radiology: I have reviewed the radiologist's reading. External Record Review External record reviewed: Inpatient record, Office record, Outpatient record, Prior outpatient labs, Prior outpatient radiology, Primary care record and Outside ED record Tests considered The following testing was considered but not selected: As above Chronic Conditions Patient?s care impacted by: Other Discharge Plan Discharge Clinical Impression: Atypical chest pain Patient Disposition: Home, Self-Care Instructions: Noncardiac Chest Pain (ED) Additional Instructions: Your blood work, x-ray, and viral studies are reassuring Please have close follow-up with your doctor as well as Cardiology If her symptoms persist or worsen or become more constant, you constant worsening chest pain, shortness of breath, weakness, fatigue return to the emergency department Prescriptions: No Action mesalamine 0.375 gram capsule,extended release 24hr 1.5 g PO DAILY Qty: 360 0RF sucralfate 1 gram tablet 1 g PO BEDTIME Qty: 90 0RF lactulose 20 gram/30 mL solution 20 g PO DAILY PRN (Reason: constipation) Qty: 1200 0RF acetaminophen [Tylenol Extra Strength] 500 mg tablet 500 mg PO Q6H PRN (Reason: fever or pain) Qty: 14 0RF cephalexin 500 mg capsule 500 mg PO Q6H 7 Days Qty: 28 0RF ibuprofen 600 mg tablet 600 mg PO Q8H PRN (Reason: pain) Qty: 10 0RF bupropion HCl 150 mg tablet extended release 24 hr 150 mg PO QAM buprenorphine-naloxone 8-2 mg film 10 mg sublingual DAILY diclofenac sodium [Voltaren Arthritis Pain] 1 % gel 4 g topical QID 30 Days Qty: 100 0RF Rx Instructions: apply to single knee, ankle, foot; for foot includes sole/toes/top of foot esomeprazole magnesium [Nexium] 40 mg capsule,delayed release(DR/EC) 40 mg PO DAILY Qty: 30 5RF budesonide-formoterol [Symbicort] 160-4.5 mcg/actuation HFA aerosol inhaler 2 puff inhalation BID 30 Days Qty: 10.2 11RF docusate sodium 100 mg capsule 100 mg PO BID mirtazapine 15 mg tablet 15 mg PO BEDTIME calcium polycarbophil [Fiber Laxative (ca polycarbo)] 625 mg tablet 1,250 mg PO DAILY 30 Days Qty: 60 3RF duloxetine 60 mg capsule,delayed release(DR/EC) 60 mg PO DAILY loratadine 10 mg tablet 10 mg PO DAILY gabapentin 100 mg capsule 200 mg PO BEDTIME 30 Days Qty: 60 6RF sucralfate [Carafate] 100 mg/mL suspension 10 ml PO BID Qty: 1000 0RF sertraline 25 mg tablet 25 mg PO DAILY hydroxyzine HCl 25 mg tablet 25 mg PO BID Referrals: [facility] [Provider Group] Rik Flaherty MD [Primary Care Provider] - Stand Alone Forms: Work/School Release Interventions: ED Discharge Assessment Last Done: 06/05/24 18:11 Discharge Date/Time: 06/05/24 18:12 Print Language: French
[2024-06-05 12:04] LABS: MANUAL DIFF FLAG NO
[2024-06-05 12:06] LABS: Basophils Absolute Auto 0.1 X10*3/uL (0.0-0.2); Basophils Percent Auto 1.9 % (0-2); Eosinophils Absolute Auto 0.5 X10*3/uL (0.0-0.4); Eosinophils Percent Auto 7.2 % (0-4); Hematocrit 39.4 % (42.0-52.0); Hemoglobin 13.8 g/dl (14.0-18.0); Imm Gran Abs Auto 0.02 X10*3/uL (0.00-0.03); Imm Gran Pct Auto 0.3 % (0.0-0.4); Lymphocytes Absolute Auto 3.1 X10*3/uL (1.2-4.9); Lymphocytes Percent Auto 45.4 % (20-40); Mean Corpuscular Hemoglobin 29.2 pg (27.0-33.0); Mean Corpuscular Volume 83.5 fL (80.0-98.0); Mean Platelet Volume 9.2 fL (9.4-12.4); Monocytes Absolute Auto 0.5 X10*3/uL (0.1-1.2); Monocytes Percent Auto 6.8 % (2-11); Neutrophils Absolute Auto 2.6 x10*3/uL (2.0-8.3); Neutrophils Percent Auto 38.4 % (45-73); Platelet Count 218 X10*3/uL (160-400); Red Blood Count 4.72 X10*6/uL (4.60-5.80); Red Cell Distribution Width 11.9 % (11.0-16.0); White Blood Count 6.8 X10*3/uL (4.8-10.8)
[2024-06-05 12:12] LABS: Prothrombin Time 11.2 SEC (10.9-12.4)
[2024-06-05 12:21] LABS: Alanine Aminotransferase 68 U/L (0-40); Albumin Level 4.3 g/dL (3.5-5.0); Alkaline Phosphatase 74 U/L (39-117); Anion Gap 13 (12-20); Aspartate Amino Transferase 34 U/L (5-37); Bilirubin Total 0.4 mg/dL (0.0-1.0); Blood Urea Nitrogen 11 mg/dL (9-16); Calcium 9.6 mg/dL (8.4-10.2); Carbon Dioxide 24 mmol/L (22-29); Chloride 109 mmol/L (96-108); Creatinine Clr Calc Pharmacy 92.4; Estimated Glomerular Filt Rate > 60; Glucose Random 120 mg/dL (60-115); Lipase 23 U/L (8-78); Potassium 3.2 mmol/L (3.3-5.1); Sodium 143 mmol/L (135-145); Total Protein 7.6 g/dL (6.5-8.0)
[2024-06-05 12:27] LABS: Troponin-I High Sensitivity 9.6 ng/L (<3.5-35.0)
[2024-06-05 12:28] LABS: B Type Natriuretic Peptide 15 pg/mL (<100)
[2024-06-05 12:43] LABS: Influenza A PCR NEGATIVE (Negative); Influenza B PCR NEGATIVE (Negative); Resp Syncy Virus RNA Qual PCR NEGATIVE (Negative); SARS COV2 PCR INHOUSE NEGATIVE (Negative)
[2024-06-05] MEDS: Potassium Chloride Packet 20 MEQ PACKET 60 MEQ PO (17:47)
[2024-06-05] MEDS: Albuterol Sulfate 90 MCG 8 GM INHALER 4 PUFF INHALE (17:47)
[2024-06-05 17:55] VITALS: BP 150/85; PULSE 55; RESP 18; TEMP 36.6; O2SAT 100
[2024-06-05 17:55] LABS: Troponin-I High Sensitivity 8.2 ng/L (<3.5-35.0)
[2024-06-05 18:11] VITALS: BP 150/85; PULSE 55; RESP 18; TEMP 36.6; O2SAT 100
== END 2024-06-05 18:12 | disposition home or self-care (01) ==
PROVIDERS: Physician Assistant; Emergency Provider Emergency Medicine; PCP Internal Medicine
DX: R07.89 Other chest pain (principal); R06.02 Shortness of breath; R06.2 Wheezing; Z03.818 Encounter for observation for suspected exposure to other biological agents ruled out; F17.210 Nicotine dependence, cigarettes, uncomplicated; Z79.899 Other long term (current) drug therapy
CPT/HCPCS: 0241U; 36415; 71046; 80053; 83690; 83880; 84484; 85025; 85610; 93005; 99283; 99284

== ENCOUNTER 2024-06-06 15:04 | Outpatient (REF) | payer OTHER, SELFPAY ==
--- NOTE | ~2024-06-06 | CT_ITS ---
EXAMINATION: CT CHEST WITH CONTRAST CLINICAL INFORMATION: Localized enlarged lymph nodes. COMPARISON: CT angiogram chest dated February 01, 2024 TECHNIQUE: Multidetector volumetric CT imaging of the chest was obtained after the administration of 65 mL of Omnipaque 350 intravenous contrast without immediate adverse reactions. Axial MIP volume rendering provided. Sagittal and coronal reformatted images were obtained. This CT examination was performed using dose optimization techniques as appropriate, variously including the following: *Automated exposure control *Adjustment of mA and/or kV according to patient size (this includes techniques or standardized protocols for targeted exams where dose is matched to indication/reason for exam; i.e. extremities or head) *Use of iterative reconstruction technique DLP: 127 mGy-cm FINDINGS: Submitted for interpretation on August 08, 2024. Prominent partially calcified lymph nodes in the mediastinum and right pulmonary artery hilum, the largest measures 1.1 cm. No gross pulmonary nodules. No consolidation, pleural effusion or pneumothorax. No bronchiectasis. No honeycombing. Subsegmental atelectasis versus scarring, lingula and right middle lobe. Respiratory airways patent. No aneurysm or dissection, thoracic aorta. Main pulmonary artery and its main branches are patent. The thyroid gland included in the exam is not enlarged. Decreased enhancement pattern throughout the liver parenchyma. Soft tissue fullness, left adrenal gland. No acute fracture or listhesis in the axial skeleton. No lytic or blastic lesions. CT/CT chest w IV con IMPRESSION: Nonspecific partially calcified lymph nodes, mediastinum and right pulmonary hilum, smaller since prior exam. Previous granulomatous disease processes and or sarcoidosis versus less likely a lymphoproliferative disorder should be considered. Probable hepatic steatosis. Fleischner guidelines were followed. Electronically signed by: Abhijit Bee MD 08/08/2024 11:19 AM EST
[2024-06-06] MEDS: iohexoL 350 MG/ML 100 ML INFUS..BTL IV (15:25)
== END 2024-06-06 15:05 | disposition home or self-care (01) ==
LOC: HO.CT 15:04
PROVIDERS: PCP Internal Medicine; Visit Provider Hospitalist
DX: R59.0 Localized enlarged lymph nodes (principal); R91.1 Solitary pulmonary nodule
CPT/HCPCS: 71260; Q9967

== ENCOUNTER → 2024-06-06 15:09 | Outpatient (BNV) | payer OTHER, SELFPAY | PROVIDERS: PCP Internal Medicine; Visit Provider Radiology Diagnostic Radiology | DX: K76.0 Fatty (change of) liver, not elsewhere classified (principal); I89.8 Other specified noninfective disorders of lymphatic vessels and lymph nodes | CPT/HCPCS: 71260 ==

== ENCOUNTER 2024-06-14 15:47 | Outpatient (AMB) | payer OTHER, SELFPAY ==
[2024-06-14 15:51] VITALS: BP 140/80; PULSE 56; BMI 27.2
--- NOTE | 2024-06-14 15:51 | A.OFFVIS_ITS ---
Vital Signs 06/14/24 15:51 Height 5 ft 6 in Weight 168 lb 10.458 oz BMI 27.2 BP 140/80 H Blood Pressure Location Lt brachial Position Sitting Pulse 56 Pulse Source Pulse Oximeter Intake Visit Reasons: f/u secondary hypogonadism-no vm Intake Note: Patient present today for secondary hypogonadism follow up visit. Outdoor Fitness Trainer Required: No Accompanied by: Self / Same As Patient Allergies shellfish derived Allergy (Intermediate, Verified 06/14/24 15:55) Rash Medication List - Last Reconciled 06/14/24 by Shyam Pablo MD acetaminophen (Tylenol Extra Strength) 500 mg PO Q6H PRN budesonide-formoterol 160-4.5 mcg/actuation (Symbicort) 2 puffs inhalation BID 30 days buprenorphine-naloxone 8-2 mg 10 mg sublingual DAILY bupropion HCl XL 150 mg PO QAM calcium polycarbophil (Fiber Laxative (calcium polycarbophil)) 1,250 mg (2 x 625 mg) PO DAILY 30 days cephalexin 500 mg PO Q6H 7 days diclofenac sodium 1% (Voltaren Arthritis Pain) 4 grams topical QID 30 days docusate sodium 100 mg PO BID duloxetine 60 mg PO DAILY esomeprazole magnesium (Nexium) 40 mg PO DAILY gabapentin 200 mg (2 x 100 mg) PO BEDTIME 30 days hydroxyzine HCl 25 mg PO BID ibuprofen 600 mg PO Q8H PRN lactulose 20 grams (30 mL) PO DAILY PRN loratadine 10 mg PO DAILY mesalamine ER 1.5 grams (4 x 0.375 gram) PO DAILY mirtazapine 15 mg PO BEDTIME sertraline 25 mg PO DAILY sucralfate 1 g PO BEDTIME sucralfate (Carafate) 10 mL PO BID HPI Comments Details: 43 YO Male with PMHx suboxone use who is seen in consultation at the request of his PCP for Hypogonadism. First diagnosed with Hypogonadism just recently with labs revealing low testosterone . Currently achieving spontaneous am erections, and unable to achieve erection when desired. Reports low libido. Decreased facial hair and shaving frequency. Denies any change in size or shape of testicles. Denies penile discharge or scrotal tenderness. Denies any history of mumps orchitis. Denies any head trauma. Denies history of DELFINO. but does snore at night with children who were conceived spontaneously no issues with fertility Sense of smell intact. admits headache but visual changes, gynecomastia or galactorrhea. Denies orthostatic symptoms, weight loss. Denies change in size of hands or feet. Denies hair loss, weight gain, cold intolerance. 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 Mother No problems noted. Paternal Aunt Lung cancer Social History Alcohol intake: never Patient Tobacco Use Status: Current everyday Tobacco user Tobacco use type: Cigarette Years Smoked: 23 Years e-Cigarette/Vaping Use: Currently Using Current occupational status: disabled Physical Exam Vital Signs: Last Vital Signs Pulse 56 06/14/24 15:51 BP 140/80 H 06/14/24 15:51 BMI result Body Mass Index 27.2 Assessment & Plan Assessment & Plan (1) Hypogonadism, testicular: Code(s): E29.1 - Testicular hypofunction Category: Medical Plan: This is a 43-year-old male with a history of hypogonadism which appears to be secondary in nature considering low inappropriate gonadotropins. Possible etiologies include the use of Suboxone which could suppress the gonadal axis. Workup including pituitary MRI was negative After a long discussion with the patient regarding different options of testosterone delivery, we decided to start testosterone gel 1.62% 2 depressions to each upper arm and shoulder per day. I went over how to apply the testosterone gel and talked about how to avoid transference. I also went over side effects of testosterone including but not limited to unmasking of prostate cancer, polycythemia and risk of DVT. Will recheck testosterone and CBC 6 weeks after starting testosterone Orders: Orders Testosterone, Free/Total 6 Weeks E29.1 - Testicular hypofunction Hematocrit 6 Weeks E29.1 - Testicular hypofunction Hemoglobin 6 Weeks E29.1 - Testicular hypofunction Medications: New testosterone apply 2 pump amount over max area of EACH upper arm and shoulder 4 pumps topical DAILY 150 grams 4RF Coding Level of Care Code Est Pt Level 3 (33495) Diagnoses Hypogonadism, testicular E29.1
== END 2024-06-14 16:18 | disposition home or self-care (01) ==
PROVIDERS: PCP Internal Medicine; Visit Provider Internal Medicine Endocrinology, Diabetes & Metabolism
DX: E29.1 Testicular hypofunction (principal)
CPT/HCPCS: 99213

== ENCOUNTER → 2024-06-14 15:47 | Outpatient (BNVA) | payer OTHER, SELFPAY | PROVIDERS: PCP Internal Medicine; Visit Provider Internal Medicine Endocrinology, Diabetes & Metabolism | DX: E29.1 Testicular hypofunction (principal) | CPT/HCPCS: 99212 ==

== ENCOUNTER 2024-07-06 12:38 | Outpatient (REF) | payer OTHER, SELFPAY ==
[2024-07-06 13:40] LABS: Erythrocyte Sedimentation Rate 5 MM/HR (0-15)
[2024-07-06 14:41] LABS: Ferritin 126 ng/mL (20-250)
[2024-07-06 14:54] LABS: Folate 10.7 ng/mL (> or = 4.0); Vitamin B12 323 pg/mL (200-900)
== END 2024-07-06 12:39 | disposition home or self-care (01) ==
LOC: HO.LAB 12:38
PROVIDERS: PCP Internal Medicine; Visit Provider Internal Medicine Gastroenterology
DX: K50.90 Crohn's disease, unspecified, without complications (principal)
CPT/HCPCS: 36415; 82607; 82728; 82746; 85652; 86140

== ENCOUNTER 2024-07-07 08:59 | Outpatient (AMB) | payer OTHER, SELFPAY ==
--- NOTE | 2024-07-07 09:00 | A.OFFVIS_ITS ---
Vital Signs 07/07/24 09:05 Height 5 ft 6 in Weight 167 lb 8.821 oz BMI 27.0 BP 129/77 Blood Pressure Location Lt brachial Position Sitting Pulse 61 Intake Visit Reasons: Left sided colitis without complications Intake Note: Cody presents in the office as a follow up for Left sided colitis. CC: States he has been having a poking pain in the LUQ. Denies diarrhea but states he does get constipation - no blood in stools. Pharmaceutical Analyst Required: No Allergies shellfish derived Allergy (Intermediate, Verified 07/07/24 09:05) Rash HPI HPI Left sided colitis without complications: Details: 43 yr old m here for f/u for crohns and fatty liver, mild lobo here for f/u [place]: EGD/[place]: 09/14/23 focal colitis in cecum, refluc changes, diverticulosis, internal hemorrhoids 11/22/23 CTe:mild colitis sigmoid colitis, hepatic steatosis fecal calprotectin: 10/30- 294 INTERIM: He has a mild poke sensation LUQ, better when passing gas and stool--has constipation and hard stools sometimes he is not taking apriso right now he goes to stool once daily no blood in the stool he is vaping right now he is not taking nexium, feels his acid reflux is not that bad EXAM: GENERAL: The patient is well developed and nontoxic. VITAL SIGNS:see workflow HEENT: Nonicteric sclerae, PERRLA, EOMI. Oropharynx clear. Moist mucous membranes. Conjunctivae appear well perfused. No thyroid mass. CHEST: Chest wall is nontender. HEART: Regular rate and rhythm without murmurs. LUNGS: Clear to auscultation bilaterally. ABDOMEN: Soft, positive bowel sounds, nontender, no organomegaly.no flank tenderness SKIN: No rash, no excessive bruising, petechiae, or purpura. NEUROLOGIC: Cranial nerves II-XII intact without motor/sensory deficit. Psych: normal affect A/P: 1/ Suspected mild to moderate crohns colitis 2/ smoking --now vaping 3/ reflux and gastritis PLAN: 1/ still needs to do h pylori test -stool ag and lactoferrin, he will do it -- if still high then entyvio 2/ if h pylori pos then treat, can use PPI afterwards if needed 3/ sent stool softener --also on suboxone may be causing some of his GI sx [facility] Medical History Hypogonadism, testicular Hilar lymphadenopathy Fibromyalgia GERD (gastroesophageal reflux disease) Scrotal pain Rhinosinusitis Deviated nasal bone [id number] syndrome COVID-19 Anxiety Surgical History History of esophagogastroduodenoscopy (EGD) Hx of colonoscopy History of cornea transplant Family History Father No problems noted. Mother No problems noted. Paternal Aunt Lung cancer Social History Alcohol intake: never Patient Tobacco Use Status: Current everyday Tobacco user Tobacco use type: Cigarette Years Smoked: 23 Years e-Cigarette/Vaping Use: Currently Using Current occupational status: disabled Physical Exam Vital Signs: Last Vital Signs Pulse 61 07/07/24 09:05 BP 129/77 07/07/24 09:05 BMI result Body Mass Index 27.0 Assessment & Plan Assessment & Plan (1) H. pylori infection: Code(s): A04.8 - Other specified bacterial intestinal infections Category: Medical Plan: see above (2) Crohn's disease: Code(s): K50.90 - Crohn's disease, unspecified, without complications Category: Medical Plan: see above Medications: New docusate sodium (Colace) 100 mg PO BID 90 caps 2RF Coding Level of Care Code Est Pt Level 3 (05482) Diagnoses H. pylori infection A04.8 Crohn's disease K50.90
[2024-07-07 09:05] VITALS: BP 129/77; PULSE 61; BMI 27.0
== END 2024-07-07 09:41 | disposition home or self-care (01) ==
LOC: HO.HGI 09:00
PROVIDERS: PCP Internal Medicine; Visit Provider Internal Medicine Gastroenterology
DX: A04.8 Other specified bacterial intestinal infections (principal); K50.90 Crohn's disease, unspecified, without complications
CPT/HCPCS: 99213

== ENCOUNTER → 2024-07-07 08:59 | Outpatient (BNVA) | payer OTHER, SELFPAY | PROVIDERS: PCP Internal Medicine; Visit Provider Internal Medicine Gastroenterology | DX: A04.8 Other specified bacterial intestinal infections (principal); K50.90 Crohn's disease, unspecified, without complications | CPT/HCPCS: 99212 ==

== ENCOUNTER 2024-07-10 13:59 | Outpatient (REF) | payer OTHER, SELFPAY ==
--- NOTE | ~2024-07-10 | US_ITS ---
EXAMINATION: US TRIPLEX LOWER EXTREMITY, BILATERAL CLINICAL INFORMATION: Bilateral lower extremity pain COMPARISON: 08/16/2023 TECHNIQUE: Color-flow triplex imaging with spectral analysis and compression Doppler were performed on the bilateral lower extremities. FINDINGS: Respiratory variation, normal compression and augmented flow are noted throughout the bilateral lower extremities. The visualized common femoral vein, superficial femoral vein, profunda femoral vein, popliteal vein and midcalf peroneal and posterior tibial venous segments show no evidence of deep venous thrombosis bilaterally. There is no Vasquez's cyst. US/US venous duplex LE BI IMPRESSION: No evidence of deep venous thrombosis involving the bilateral lower extremities. Electronically signed by: Fernandez Jackson MD 08/02/2024 12:30 PM EST
== END 2024-07-10 14:00 | disposition home or self-care (01) ==
LOC: HO.HMGCX 13:59
PROVIDERS: PCP Internal Medicine; Visit Provider Nurse Practitioner
DX: M79.605 Pain in left leg (principal); M79.604 Pain in right leg
CPT/HCPCS: 93970

== ENCOUNTER 2024-07-12 15:31 | Outpatient (REF) | payer OTHER, SELFPAY ==
[2024-07-12 16:58] LABS: Anion Gap 14 (12-20); Blood Urea Nitrogen 14 mg/dL (9-16); Calcium 9.6 mg/dL (8.4-10.2); Carbon Dioxide 25 mmol/L (22-29); Chloride 107 mmol/L (96-108); Estimated Glomerular Filt Rate > 60; Glucose Random 98 mg/dL (60-115); Potassium 3.8 mmol/L (3.3-5.1); Sodium 142 mmol/L (135-145)
[2024-07-12 17:05] LABS: Hematocrit 39.5 % (42.0-52.0); Hemoglobin 13.9 g/dl (14.0-18.0)
[2024-07-19 21:03] LABS: Lactoferrin, Fecal, Quant. 14.62 mcg/mL (<7.25)
[2024-07-20 21:23] LABS: Testosterone, Free 16.5 pg/mL (35.0-155.0); Testosterone, Total 88 ng/dL (250-1100)
== END 2024-07-12 15:32 | disposition home or self-care (01) ==
LOC: HO.LAB 15:31
PROVIDERS: Internal Medicine Gastroenterology; Nurse Practitioner Family; PCP Internal Medicine; Visit Provider Internal Medicine Endocrinology, Diabetes & Metabolism
DX: R07.89 Other chest pain (principal); E29.1 Testicular hypofunction; K51.50 Left sided colitis without complications; A04.8 Other specified bacterial intestinal infections
CPT/HCPCS: 36415; 80048; 83631; 84402; 84403; 85014; 85018; 87338

== ENCOUNTER 2024-07-14 12:45 | Outpatient (AMB) | payer OTHER, SELFPAY ==
[2024-07-14 12:59] VITALS: BP 138/78; PULSE 66; O2SAT 97
--- NOTE | 2024-07-14 12:59 | MHC.OFFVIS ---
Vital Signs 07/14/24 12:59 Weight 171 lb 15.369 oz BP 138/78 Blood Pressure Location Rt brachial Position Sitting Pulse 66 Pulse Oximetry (%) 97 Oxygen Delivery Method Room Air Intake Visit Reasons: Dyspnea Museum Technician Required: No Computational Theory Scientist: Computational Theory Scientist offered & declined Accompanied by: Self / Same As Patient Allergies shellfish derived Allergy (Intermediate, Verified 07/14/24 13:01) Rash Medication List - Last Reconciled 07/14/24 by Michelle Arita LPN acetaminophen (Tylenol Extra Strength) 500 mg PO Q6H PRN budesonide-formoterol 160-4.5 mcg/actuation (Symbicort) 2 puffs inhalation BID 30 days buprenorphine-naloxone 8-2 mg 10 mg sublingual DAILY bupropion HCl XL 150 mg PO QAM calcium polycarbophil (Fiber Laxative (calcium polycarbophil)) 1,250 mg (2 x 625 mg) PO DAILY 30 days cephalexin 500 mg PO Q6H 7 days diclofenac sodium 1% (Voltaren Arthritis Pain) 4 grams topical QID 30 days docusate sodium 100 mg PO BID docusate sodium (Colace) 100 mg PO BID duloxetine 60 mg PO DAILY esomeprazole magnesium (Nexium) 40 mg PO DAILY gabapentin 200 mg (2 x 100 mg) PO BEDTIME 30 days hydroxyzine HCl 25 mg PO BID ibuprofen 600 mg PO Q8H PRN lactulose 20 grams (30 mL) PO DAILY PRN loratadine 10 mg PO DAILY mesalamine ER 1.5 grams (4 x 0.375 gram) PO DAILY mirtazapine 15 mg PO BEDTIME sertraline 25 mg PO DAILY sucralfate 1 g PO BEDTIME sucralfate (Carafate) 10 mL PO BID testosterone 4 pumps topical DAILY 30 days HPI Comments Details: The patient is a 43-year-old gentleman previously healthy who apparently was in her usual state health until back in September when he has developed COVID. The COVID infection was not very severe. Subsequently after that he has had some odd sensations in his substernal area and chest area. Feels like he has episodic shortness of breath with cough and palpitations. he has been evaluated multiple times in the ER. He did have a CT scan of the chest of 1 point in the beginning April of this year. Ruled out pulmonary emboli. The patient did have just a small amount of emphysema but otherwise no other significant findings noted. His blood work all has been pretty reassuring as well. He did have a cardiac workup including a stress test and an echo without any significant abnormalities. Yet his symptoms are severe enough for him to go to the ER for medical advice because he feels like he is going . he was given a short-acting beta agonist at 1 point but it only resulting worsening palpitations and tremulousness so therefore he stop it. 06/12/2022 the patient is here for pulmonary follow-up visit. He continues to have symptoms of dyspnea on exertion. He did try the Flovent although he did not see any significant improvement. Will go ahead and switch over to Symbicort. I am hopeful that does not cause much tremulousness or palpitations. The patient 1 puff at a time. in the meantime the patient also complains of significant nasal congestion. In part this is making it difficult for him to breathe. I do believe that a big component of his shortness breath is likely from upper airway obstruction issues. He did undergo a CT scan of the sinuses demonstrating with the septum with some other chronic changes. Will go ahead and place the patient on Sudafed the hope the tolerated and also nasal therapy. Wound time also put in a referral in for ENT 1 to further evaluate his deviated septum. Patient also has been having daytime drowsiness. His [place] score is elevated 11/24. Did undergo home sleep study which we personally reviewed in the office demonstrating no evidence of any sleep apnea. Explained to the patient that the test is not 100%. If the patient continues symptomatic we can always consider in-lab study. 12/17/2022 the patient is here for a pulmonary follow-up visit. Overall he is doing better from a respiratory status. He is responding well to the Symbicort. He has not followed up with ENT. She does use his nasal therapies as needed seems to be doing a little better as well. In addition to that she is complaining of chest discomfort. Bilateral primarily closer to the armpit area. He went to the ER twice for. [place] to be musculoskeletal. He was given ibuprofen. I did reassure him that it seems to be likely due to a muscle strain while trying to move a heavy object. The patient did have a chest x-ray which I personally reviewed demonstrating no acute disease. Otherwise patient is without any other complaints. 01/10/2024 the patient is here for a pulmonary follow-up visit. Overall doing well from a respiratory status. He still has a Symbicort although he does use it as needed. Has not used it recently. He is still having episodes of and anxiety and panic attacks. The episodes still caused him to have some shortness of breath. The usually subside. He has had a Holter monitor for about 4 days. No evidence of any tachycardia or palpitations. Or arrhythmias. Although she did have a reaction to the tape and caused him to have significant skin issues for some time. He has not interested in having another 1 or considering an event monitor. The patient does not have any recent imaging studies. We did talk about the methacholine challenge. He did not have it. At this point he has a clinical diagnosis of asthma. It would have to be confirmed with a methacholine challenge. Will continue the current inhalers as prescribed. In the meantime having difficulty sleeping. He was prescribed gabapentin 100 mg. Does not seem to be enough. I will go ahead and increase it to 200 mg an hour before sleep. If is still not enough is able to take 300 mg and he can always call so I can adjust the dose. Patient follow-up in 6 months. 02/02/2024 the patient is here for a hospital follow-up visit. She had another episode where he was having significant shortness breath anxiety. He went to the ER. In the ER he had a workup including a CTA. He had multiple pulmonary nodules noted. He also had lymphadenopathy noted with some calcifications. Seems that the findings have been stable noted before though the hilar lymph nodes appear to be moderate size. Could represent a conditions such as sarcoidosis. Current the patient is doing better. He had a cardiac workup and was pretty much nondiagnostic. He will use his inhalers whenever he has an episode like the 1 he had brought him to the ER. Will go ahead and repeat the CT scan prior to his next visit in July. If his lymph nodes are still elevated which probably will be will talk about diagnostic interventions to further address the airways. 07/14/2024 the patient is here for a pulmonary follow-up visit. The patient overall is doing well from a respiratory status. He has other non pulmonary complaints including neck pain and back pain and abdominal discomfort. The patient does have issues with nasal congestion as he does have a deviated septum. But overall at baseline. He did undergo a CT scan of the chest that we personally reviewed in the office. Has not been officially read. He still has some small lymph nodes in the AP window but otherwise no other significant findings on the CT scan which is reassuring. No additional imaging studies warranted. He also did have a endoscopy and colonoscopy. Demonstrating some esophagitis and also having some colitis. The patient has been on naproxen. I did advise him not to use the naproxen is that will continue to affect his GI tract. He will continue to work on lifestyle changes. Will follow-up in a year. If he has any issues prior to that he will call for an earlier assessment. 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 Mother No problems noted. Paternal Aunt Lung cancer Social History Alcohol intake: never Patient Tobacco Use Status: Current everyday Tobacco user Tobacco use type: Cigarette Years Smoked: 23 Years e-Cigarette/Vaping Use: Currently Using Current occupational status: disabled Review of Systems Const Reports daytime sleepiness, Reports difficulty sleeping and Denies fever(s) Eyes Denies loss of vision ENT Denies dizziness, Denies hearing loss, Reports nasal congestion and Reports nasal discharge Card Denies claudication, Denies leg edema, Denies lightheadedness, Reports palpitations, Reports dyspnea, Reports dyspnea on exertion, Denies orthopnea and Denies other (Loss of consciousness) Resp Denies excessive phlegm production, Reports dyspnea and Reports dyspnea on exertion GI Denies abdominal pain, Denies hematochezia, Denies change in bowel habits, Denies nausea and Denies vomiting Denies dysuria and Denies urinary frequency Musc Reports myalgias, Denies arthralgias, Denies muscle weakness and Denies numbness Skin/Breast Denies nail changes and Denies rash Neuro Denies Abnormal speech present, Denies dizziness, Denies loss of vision, Denies memory loss and Denies numbness Psych Reports anxiety, Denies depression and Denies memory loss Endo Reports palpitations Thor/Lymph Denies easy bruising and Denies other (Anemia) Physical Exam Vital Signs: Last Vital Signs Pulse 66 07/14/24 12:59 BP 138/78 07/14/24 12:59 Pulse Ox 97 07/14/24 12:59 Oxygen Delivery Method Room Air 07/14/24 12:59 Const General: comfortable and no acute distress Orientation/consciousness: patient oriented x3 HEENT Other: Unremarkable Head: Yes normal to inspection Neck Neck: Yes normal visual inspection Chest Chest palpation & inspection: normal inspection of the chest Resp Effort & Inspection: normal respiratory effort Auscultation: clear to auscultation bilaterally Cardio Heart sounds: S1 normal heart sound present, S2 normal heart sound present, no gallops, no murmurs and no rubs GI Palpation (GI): Soft to palpation Back/Spine/Pelvis Other: unremarkable Skin General skin exam: no rashes or lesions noted Neuro General: patient oriented x3 Speech: No Abnormal speech present Extrem General: Yes normal to inspection Psych Mental Status: mental status grossly normal Assessment & Plan Assessment & Plan (1) SOB (shortness of breath): Code(s): R06.02 - Shortness of breath Category: Medical (2) Rhinosinusitis: Code(s): J31.0 - Chronic rhinitis; J32.9 - Chronic sinusitis, unspecified Category: Medical (3) Deviated nasal bone: Code(s): J34.2 - Deviated nasal septum Category: Medical (4) Sleep disturbance: Code(s): G47.9 - Sleep disorder, unspecified Category: Medical (5) Pulmonary nodule: Code(s): R91.1 - Solitary pulmonary nodule Category: Medical (6) Hilar lymphadenopathy: Code(s): R59.0 - Localized enlarged lymph nodes Category: Medical Plan NAWAF as needed continue Zyrtec gabapentin 200mg QHD CT chest ok stop vaping F/U 6-8 months Coding Level of Care Code Est Pt Level 4 (48050) Diagnoses SOB (shortness of breath) R06.02 Rhinosinusitis J31.0; J32.9 Deviated nasal bone J34.2 Sleep disturbance G47.9 Pulmonary nodule R91.1 Hilar lymphadenopathy R59.0 Time Spent (min) 16
== END 2024-07-14 13:19 | disposition home or self-care (01) ==
PROVIDERS: PCP Internal Medicine; Visit Provider Hospitalist
DX: R06.02 Shortness of breath (principal); J31.0 Chronic rhinitis; J32.9 Chronic sinusitis, unspecified; J34.2 Deviated nasal septum; G47.9 Sleep disorder, unspecified; R91.1 Solitary pulmonary nodule; R59.0 Localized enlarged lymph nodes
CPT/HCPCS: 99214

== ENCOUNTER → 2024-07-14 12:45 | Outpatient (BNVA) | payer OTHER, SELFPAY | PROVIDERS: PCP Internal Medicine; Visit Provider Hospitalist | DX: J34.2 Deviated nasal septum (principal); R06.02 Shortness of breath; J31.0 Chronic rhinitis; J32.9 Chronic sinusitis, unspecified; G47.9 Sleep disorder, unspecified; R91.1 Solitary pulmonary nodule; R59.0 Localized enlarged lymph nodes | CPT/HCPCS: 99212 ==

== ENCOUNTER 2024-07-20 19:58 | Emergency (ER) | payer OTHER, SELFPAY ==
--- NOTE | ~2024-07-20 | XR_ITS ---
EXAMINATION: XR THORACIC SPINE CLINICAL INFORMATION: Upper back pain COMPARISON: None available. TECHNIQUE: 3 views of the thoracic spine were obtained. FINDINGS: There is no fracture or bone destruction seen and the vertebral alignment is normal. There is no disc space narrowing. There is no abnormality of the paraspinal soft tissues. XR/XR thoracic spine 3V IMPRESSION: Unremarkable examination. Electronically signed by: Ash Oquendo DO 07/20/2024 09:42 PM EST
[2024-07-20 20:01] VITALS: BP 133/77; PULSE 72; RESP 20; TEMP 36.6; O2SAT 96; BMI 27.4
--- NOTE | 2024-07-20 20:01 | ED_ITS ---
HPI - Back Pain/Injury General Chief Complaint: Back Pain/Injury Stated Complaint: upper back pain Related Data Home Medications ?Medication ?Instructions ?Recorded ?Confirmed bupropion HCl 150 mg 24 hr tablet, 150 mg PO QAM 06/04/20 05/30/24 extended release buprenorphine 8 mg-naloxone 2 mg 10 mg sublingual DAILY 06/12/22 05/30/24 sublingual film docusate sodium 100 mg capsule 100 mg PO BID 03/10/23 05/30/24 mirtazapine 15 mg tablet 15 mg PO BEDTIME 03/10/23 05/30/24 duloxetine 60 mg capsule,delayed 60 mg PO DAILY 12/09/23 05/30/24 release loratadine 10 mg tablet 10 mg PO DAILY 12/09/23 05/30/24 hydroxyzine HCl 25 mg tablet 25 mg PO BID 05/30/24 05/30/24 sertraline 25 mg tablet 25 mg PO DAILY 05/30/24 05/30/24 Previous Rx's ?Medication ?Instructions ?Recorded diclofenac sodium 1 % topical gel 4 g topical QID 30 days #100 grams 12/17/22 (Voltaren Arthritis Pain) acetaminophen 500 mg tablet 500 mg PO Q6H PRN fever or pain 03/08/23 (Tylenol Extra Strength) #14 tabs calcium polycarbophil 625 mg 1,250 mg (2 x 625 mg) PO DAILY 30 07/14/23 tablet (Fiber Laxative (calcium days #60 tabs polycarbophil)) lactulose 20 gram/30 mL oral 20 g (30 mL) PO DAILY PRN 08/14/23 solution constipation #1,200 mL gabapentin 100 mg capsule 200 mg (2 x 100 mg) PO BEDTIME 30 01/10/24 days #60 caps budesonide-formoterol HFA 160 2 puff inhalation BID 30 days 02/02/24 mcg-4.5 mcg/actuation aerosol #10.2 grams inhaler (Symbicort) mesalamine 0.375 gram 1.5 g (4 x 0.375 gram) PO DAILY 04/17/24 capsule,extended release 24 hr #360 caps sucralfate 1 gram tablet 1 g PO BEDTIME #90 tabs 04/21/24 cephalexin 500 mg capsule 500 mg PO Q6H 7 days #28 caps 05/11/24 ibuprofen 600 mg tablet 600 mg PO Q8H PRN pain #10 tabs 05/11/24 testosterone 4 pump topical DAILY 30 days #150 06/27/24 grams docusate sodium 100 mg capsule 100 mg PO BID #90 caps 07/07/24 (Colace) esomeprazole magnesium 40 mg 40 mg PO DAILY #90 caps 07/18/24 capsule,delayed release sucralfate 100 mg/mL oral 10 ml PO BID #1,000 mL 07/19/24 suspension Allergies Allergy/AdvReac Type Severity Reaction Status Date / Time shellfish derived Allergy Intermediate Rash Verified 07/24/24 15:51 [facility] Past Medical History Medical History Hypogonadism, testicular Hilar lymphadenopathy Fibromyalgia GERD (gastroesophageal reflux disease) Scrotal pain Rhinosinusitis 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 Mother No problems noted. Paternal Aunt Lung cancer Social History Social History Alcohol intake: never Patient Tobacco Use Status: Current everyday Tobacco user Tobacco use type: Cigarette Years Smoked: 23 Years e-Cigarette/Vaping Use: Currently Using Current occupational status: disabled Physical Exam Vital Signs: Vital Signs: Last Vital Signs Temp 97.8 F 07/20/24 20:01 Pulse 72 07/20/24 20:01 Resp 20 07/20/24 20:01 BP 133/77 07/20/24 20:01 Pulse Ox 96 07/20/24 20:01 O2 Del Method Room Air 07/20/24 20:01 BMI result Body Mass Index 27.4 Course Course Course Narrative: This is a Rapid Medical Exam performed in triage by Herminia Hameed PA-C. Full HPI, ROS and PE to be performed by primary ED provider. 43-year-old male with a past medical history fibromyalgia, GERD, anxiety, presenting to the ED c/o nonradiating upper back pain x1 mos. denies injury/fall, heavy lifting/workouts. Denies CP/SOB. denies taking anything for pain PE: +reproducible thoracic paraspinal back pain. No erythema/rash. No midline ttp Plan: XR Discharge Plan Discharge Clinical Impression: Back pain Patient Disposition: Left W/O Completing Treatment Prescriptions: No Action mesalamine 0.375 gram capsule,extended release 24hr 1.5 g PO DAILY Qty: 360 0RF sucralfate 1 gram tablet 1 g PO BEDTIME Qty: 90 0RF testosterone 20.25 mg/1.25 gram (1.62 %) gel in metered-dose pump 4 pump topical DAILY 30 Days Qty: 150 4RF Rx Instructions: apply 2 pump amount over max area of EACH upper arm and shoulder esomeprazole magnesium 40 mg capsule,delayed release(DR/EC) 40 mg PO DAILY Qty: 90 1RF sucralfate 100 mg/mL suspension 10 ml PO BID Qty: 1000 0RF lactulose 20 gram/30 mL solution 20 g PO DAILY PRN (Reason: constipation) Qty: 1200 0RF acetaminophen [Tylenol Extra Strength] 500 mg tablet 500 mg PO Q6H PRN (Reason: fever or pain) Qty: 14 0RF cephalexin 500 mg capsule 500 mg PO Q6H 7 Days Qty: 28 0RF ibuprofen 600 mg tablet 600 mg PO Q8H PRN (Reason: pain) Qty: 10 0RF bupropion HCl 150 mg tablet extended release 24 hr 150 mg PO QAM buprenorphine-naloxone 8-2 mg film 10 mg sublingual DAILY diclofenac sodium [Voltaren Arthritis Pain] 1 % gel 4 g topical QID 30 Days Qty: 100 0RF Rx Instructions: apply to single knee, ankle, foot; for foot includes sole/toes/top of foot budesonide-formoterol [Symbicort] 160-4.5 mcg/actuation HFA aerosol inhaler 2 puff inhalation BID 30 Days Qty: 10.2 11RF docusate sodium 100 mg capsule 100 mg PO BID mirtazapine 15 mg tablet 15 mg PO BEDTIME calcium polycarbophil [Fiber Laxative (ca polycarbo)] 625 mg tablet 1,250 mg PO DAILY 30 Days Qty: 60 3RF duloxetine 60 mg capsule,delayed release(DR/EC) 60 mg PO DAILY loratadine 10 mg tablet 10 mg PO DAILY gabapentin 100 mg capsule 200 mg PO BEDTIME 30 Days Qty: 60 6RF sertraline 25 mg tablet 25 mg PO DAILY hydroxyzine HCl 25 mg tablet 25 mg PO BID docusate sodium [Colace] 100 mg capsule 100 mg PO BID Qty: 90 2RF Discharge Date/Time: 07/21/24 00:50
--- NOTE | 2024-07-21 00:46 | PC.NURSE ---
pt no answer when called for reassessment.
== END 2024-07-21 00:50 | disposition left against medical advice (07) ==
LOC: HO.ED 07-21 00:49
PROVIDERS: Emergency Provider Emergency Medicine Emergency Medical Services; PCP Internal Medicine
DX: M54.9 Dorsalgia, unspecified (principal); Z53.21 Procedure and treatment not carried out due to patient leaving prior to being seen by health care provider
CPT/HCPCS: 72072; 99281

== ENCOUNTER 2024-07-24 15:46 | Outpatient (AMB) | payer OTHER, SELFPAY ==
[2024-07-24 15:48] VITALS: BP 110/68; PULSE 88; BMI 27.3
--- NOTE | 2024-07-24 15:48 | A.OFFVIS_ITS ---
Vital Signs 07/24/24 15:48 Height 5 ft 6 in Weight 169 lb 5.04 oz BMI 27.3 BP 110/68 Blood Pressure Location Rt brachial Position Sitting Pulse 88 Pulse Source Pulse Oximeter Intake Visit Reasons: Hypogandism-unable to leave a vm Intake Note: Patient present today for secondary hypogonadism follow up visit. Neurodiagnostic Technologist Required: No Accompanied by: Self / Same As Patient Allergies shellfish derived Allergy (Intermediate, Verified 07/24/24 15:51) Rash HPI Comments Details: 43 YO Male with PMHx suboxone use who is seen in consultation at the request of his PCP for Hypogonadism. First diagnosed with Hypogonadism just recently with labs revealing low testosterone . Currently achieving spontaneous am erections, and unable to achieve erection when desired. Reports low libido. Decreased facial hair and shaving frequency. Denies any change in size or shape of testicles. Denies penile discharge or scrotal tenderness. Denies any history of mumps orchitis. Denies any head trauma. Denies history of DELFINO. but does snore at night with children who were conceived spontaneously no issues with fertility Sense of smell intact. admits headache but visual changes, gynecomastia or galactorrhea. Denies orthostatic symptoms, weight loss. Denies change in size of hands or feet. Denies hair loss, weight gain, cold intolerance. 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 Patient is currently on testosterone gel 4 depressions per day. 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 Mother No problems noted. Paternal Aunt Lung cancer Social History Alcohol intake: never Patient Tobacco Use Status: Current everyday Tobacco user Tobacco use type: Cigarette Years Smoked: 23 Years e-Cigarette/Vaping Use: Currently Using Current occupational status: disabled Physical Exam Vital Signs: BMI result Body Mass Index 27.3 Assessment & Plan Assessment & Plan (1) Hypogonadism, testicular: Code(s): E29.1 - Testicular hypofunction Category: Medical Plan: This is a 43-year-old male with a history of hypogonadism which appears to be secondary in nature considering low inappropriate gonadotropins. Possible etiologies include the use of Suboxone which could suppress the gonadal axis. Workup including pituitary MRI was negative Plan is to continue the current treatment. We will recheck testosterone and CBC in 6 weeks adjust testosterone according Orders: Orders Testosterone, Free/Total 2 Months E29.1 - Testicular hypofunction Hematocrit 2 Months E29.1 - Testicular hypofunction Hemoglobin 2 Months E29.1 - Testicular hypofunction Coding Level of Care Code Est Pt Level 3 (72215) Diagnoses Hypogonadism, testicular E29.1
== END 2024-07-24 16:07 | disposition home or self-care (01) ==
PROVIDERS: PCP Internal Medicine; Visit Provider Internal Medicine Endocrinology, Diabetes & Metabolism
DX: E29.1 Testicular hypofunction (principal)
CPT/HCPCS: 99213

== ENCOUNTER → 2024-07-24 15:46 | Outpatient (BNVA) | payer OTHER, SELFPAY | PROVIDERS: PCP Internal Medicine; Visit Provider Internal Medicine Endocrinology, Diabetes & Metabolism | DX: E29.1 Testicular hypofunction (principal) | CPT/HCPCS: 99212 ==

== ENCOUNTER 2024-08-24 14:21 | Outpatient (REF) | payer OTHER, SELFPAY ==
--- NOTE | ~2024-08-24 | XR_ITS ---
EXAMINATION: XR CERVICAL SPINE CLINICAL INFORMATION: Neck pain COMPARISON: None TECHNIQUE: AP, lateral, both oblique, and open mouth odontoid views of the cervical spine. FINDINGS: Vertebral alignment is normal without spondylolisthesis. Vertebral body heights are normal. No fractures are evident. Intervertebral disc heights are well-preserved. Uncovertebral joint hypertrophy and mild endplate osteophyte formation is seen at C4/5 and C5/6. Facet joints are unremarkable. No osseous neural foraminal encroachment. Prevertebral soft tissues are normal. XR/XR cervical spine 4V IMPRESSION: Mild degenerative changes as described above. Electronically signed by: Fernandez Jackson MD 08/27/2024 10:12 AM [facility]
== END 2024-08-24 14:22 | disposition home or self-care (01) ==
LOC: HO.HHCX 14:21
PROVIDERS: Visit Provider Internal Medicine
DX: M54.2 Cervicalgia (principal)
CPT/HCPCS: 72050

== ENCOUNTER 2024-08-29 00:20 | Emergency (ER) | payer OTHER, SELFPAY ==
[2024-08-29 00:22] VITALS: BP 134/67; PULSE 68; RESP 18; TEMP 36.6; O2SAT 97; BMI 27.4
[2024-08-29 00:46] LABS: Basophils Absolute Auto 0.1 X10*3/uL (0.0-0.2); Basophils Percent Auto 1.1 % (0-2); Eosinophils Absolute Auto 0.2 X10*3/uL (0.0-0.4); Eosinophils Percent Auto 4.4 % (0-4); Hematocrit 38.9 % (42.0-52.0); Hemoglobin 13.7 g/dl (14.0-18.0); Imm Gran Abs Auto 0.02 X10*3/uL (0.00-0.03); Imm Gran Pct Auto 0.4 % (0.0-0.4); Lymphocytes Absolute Auto 2.2 X10*3/uL (1.2-4.9); Lymphocytes Percent Auto 40.1 % (20-40); MANUAL DIFF FLAG NO; Mean Corpuscular HGB Conc 35.2 g/dl (31.0-36.0); Mean Corpuscular Hemoglobin 29.8 pg (27.0-33.0); Mean Corpuscular Volume 84.7 fL (80.0-98.0); Monocytes Absolute Auto 0.4 X10*3/uL (0.1-1.2); Monocytes Percent Auto 7.9 % (2-11); Neutrophils Absolute Auto 2.5 x10*3/uL (2.0-8.3); Neutrophils Percent Auto 46.1 % (45-73); Platelet Count 216 X10*3/uL (160-400); Red Blood Count 4.59 X10*6/uL (4.60-5.80); Red Cell Distribution Width 12.1 % (11.0-16.0); White Blood Count 5.4 X10*3/uL (4.8-10.8)
[2024-08-29 01:12] LABS: Albumin Level 4.2 g/dL (3.5-5.0); Anion Gap 12 (12-20); Aspartate Amino Transferase 52 U/L (5-37); Bilirubin Total 0.7 mg/dL (0.0-1.0); Blood Urea Nitrogen 14 mg/dL (9-16); Calcium 8.9 mg/dL (8.4-10.2); Carbon Dioxide 27 mmol/L (22-29); Chloride 106 mmol/L (96-108); Creatinine Clr Calc Pharmacy 100.1; Estimated Glomerular Filt Rate > 60; Glucose Random 119 mg/dL (60-115); Lipase 20 U/L (8-78); Potassium 3.9 mmol/L (3.3-5.1); Sodium 141 mmol/L (135-145); Total Protein 7.5 g/dL (6.5-8.0)
[2024-08-29] MEDS: Ondansetron ODT 4 MG TAB.RAPDIS TRANSLINGU (01:17)
[2024-08-29] MEDS: Magnesium Hydrox/Alum Hydrox 30 ML ORAL.SUSP PO (01:17)
[2024-08-29] MEDS: Lidocaine HCl Viscous 2 % 15 ML SOLUTION MUCOUS MEM (01:17)
--- NOTE | 2024-08-29 01:22 | PC.NURSE ---
pt in room, sitting comfortably in bed, states his abdominal discomfort is not pain, more like acid is being poured in my stomach. of note, pt currently drinks caffeine, endorses frequent vaping, and does not take prescribed nexium or carafate. pt rates pain 9/10. no pain behaviors observed. pt states his needs are met. JEFFREY [place] at bedside. abdomen non tender on palpation, no guarding, no nausea. maalox, lidocaine, zofran SL given. call richards in reach.
--- NOTE | 2024-08-29 01:23 | ED.GENADULT ---
HPI - General Adult General Chief complaint: Abdominal Pain Stated complaint: stomach pain Time Seen by Provider: 08/29/24 00:53 Source: patient, RN notes reviewed and old records reviewed Mode of arrival: ambulatory Limitations: no limitations History of Present Illness ED Provider: Leia HPI narrative: 43-year-old male with past medical history significant for Crohn's disease followed by Dr. Engel, chronic constipation, fibromyalgia, anemia, transaminitis presents for evaluation of burning abdominal pain. Patient reports that he has had burning upper abdominal pain for quite some time. His symptoms have been worse over the last couple of weeks. He was started on Entyvio for his Crohn's disease. Denies any nausea vomiting, black or bloody stool. His pain is 6/10. It seems to be worse after eating. He has no other complaints or concerns at this time The patient is not currently taking any PPI or other antacid medication. He had previously been taking sucralfate and esomeprazole Related Data Home Medications ?Medication ?Instructions ?Recorded ?Confirmed bupropion HCl 150 mg 24 hr tablet, 150 mg PO QAM 06/04/20 05/30/24 extended release buprenorphine 8 mg-naloxone 2 mg 10 mg sublingual DAILY 06/12/22 05/30/24 sublingual film docusate sodium 100 mg capsule 100 mg PO BID 03/10/23 05/30/24 mirtazapine 15 mg tablet 15 mg PO BEDTIME 03/10/23 05/30/24 duloxetine 60 mg capsule,delayed 60 mg PO DAILY 12/09/23 05/30/24 release loratadine 10 mg tablet 10 mg PO DAILY 12/09/23 05/30/24 hydroxyzine HCl 25 mg tablet 25 mg PO BID 05/30/24 05/30/24 sertraline 25 mg tablet 25 mg PO DAILY 05/30/24 05/30/24 Previous Rx's ?Medication ?Instructions ?Recorded diclofenac sodium 1 % topical gel 4 g topical QID 30 days #100 grams 12/17/22 (Voltaren Arthritis Pain) acetaminophen 500 mg tablet 500 mg PO Q6H PRN fever or pain 03/08/23 (Tylenol Extra Strength) #14 tabs calcium polycarbophil 625 mg 1,250 mg (2 x 625 mg) PO DAILY 30 07/14/23 tablet (Fiber Laxative (calcium days #60 tabs polycarbophil)) lactulose 20 gram/30 mL oral 20 g (30 mL) PO DAILY PRN 08/14/23 solution constipation #1,200 mL gabapentin 100 mg capsule 200 mg (2 x 100 mg) PO BEDTIME 30 01/10/24 days #60 caps budesonide-formoterol HFA 160 2 puff inhalation BID 30 days 02/02/24 mcg-4.5 mcg/actuation aerosol #10.2 grams inhaler (Symbicort) mesalamine 0.375 gram 1.5 g (4 x 0.375 gram) PO DAILY 04/17/24 capsule,extended release 24 hr #360 caps cephalexin 500 mg capsule 500 mg PO Q6H 7 days #28 caps 05/11/24 ibuprofen 600 mg tablet 600 mg PO Q8H PRN pain #10 tabs 05/11/24 testosterone 4 pump topical DAILY 30 days #150 06/27/24 grams docusate sodium 100 mg capsule 100 mg PO BID #90 caps 07/07/24 (Colace) esomeprazole magnesium 40 mg 40 mg PO DAILY #90 caps 07/18/24 capsule,delayed release sucralfate 100 mg/mL oral 10 ml PO BID #1,000 mL 07/19/24 suspension sucralfate 1 gram tablet 1 g PO BEDTIME #90 tabs 08/15/24 sucralfate 1 gram tablet 1 g PO BID #60 tabs 08/29/24 Allergies Allergy/AdvReac Type Severity Reaction Status Date / Time shellfish derived Allergy Intermediate Rash Verified 08/29/24 00:24 Review of Systems Constitutional: Constitutional: Denies body ache(s), Denies chills and Denies fever(s) Eyes: Eyes: Denies blurry vision ENT: Denies vertigo, Denies dizziness and Denies sore throat Cardiovascular: Cardiovascular: Denies chest pain and Denies dyspnea Respiratory: Respiratory: Denies cough and Denies dyspnea Gastrointestinal: Gastrointestinal: Reports abdominal pain, Denies nausea and Denies vomiting Musculoskeletal: Musculoskeletal: Denies back pain Integumentary/Breasts: Skin/Breast: Denies rash Neurologic: Denies vertigo and Denies dizziness Psychiatric: Psychiatric: Denies anxiety PMFSH Past Medical History Medical History Hypogonadism, testicular Hilar lymphadenopathy Fibromyalgia GERD (gastroesophageal reflux disease) Scrotal pain Rhinosinusitis 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 Mother No problems noted. Paternal Aunt Lung cancer Social History Social History Alcohol intake: never Patient Tobacco Use Status: Current everyday Tobacco user Tobacco use type: Cigarette Years Smoked: 23 Years Smoked in Last 30 Days: No e-Cigarette/Vaping Use: Currently Using Use of substances other than those prescribed or required for medical reasons: No Advance Directives: No Advance Directives Information Provided: Yes Current occupational status: disabled Physical Exam ED Vital Signs: Vital Signs - 24 hr 08/29/24 00:22 Temperature 97.9 F Pulse Rate 68 Respiratory Rate 18 Blood Pressure 134/67 Pulse Oximetry 97 Oxygen Delivery Method Room Air BMI result Body Mass Index 27.4 Const General: healthy appearing, comfortable, no acute distress, alert and awake Nutritional Appearance: well nourished Orientation/consciousness: patient oriented x3 HENMT Head: Yes normocephalic and Yes atraumatic Eyes Eyelids: Yes eyelids normal Conjunctivae: conjunctivae normal Sclerae: sclerae normal Corneas: corneas normal Pupils: Equal, round and reactive pupils present EOM: EOMs intact bilaterally Neck Neck: Yes full ROM Resp Effort & Inspection: normal respiratory effort, able to speak in complete sentences and not labored GI Inspection: No distended Palpation (GI): Soft to palpation, not firm, Tenderness to palpation present (GI) in the epigastrum and in the LUQ; not in the LLQ, not in the RLQ, not in the RUQ, not at McBurney's point and May's sign negative, no guarding and not rigid Auscultation: normoactive bowel sounds Skin General skin exam: no rashes or lesions noted and elasticity normal Neuro General: patient oriented x3 Cranial nerves: Yes Equal, round and reactive pupils present and Yes Bilaterally intact EOM present Cognition (Neuro): normal cognition Extrem Other: Moving all extremities well without any obvious deformities Course Reevaluation(s) Reevaluation #1: Patient reports his pain is significantly improved after GI cocktail. His symptoms are likely related to gastritis, labs are reviewed without significant concerning abnormality. We will restart his esomeprazole and sucralfate. Time: 01:58 Reevaluation #2: The patient reports that he has his esomeprazole at home still but would like his sucralfate change 2 tablets, this was prescribed. Time: 02:02 Medications Administered Discontinued Medications Generic Name Dose Route Start Last Admin Trade Name Freq PRN Reason Stop Dose Admin Al Hydroxide/Mg Hydroxide 30 ml 08/29/24 01:12 08/29/24 01:17 Magnesium Hydrox/Alum Hydrox 30 Ml Oral.Susp PO 08/29/24 01:13 30 ml ONCE ONE Administration Lidocaine HCl 15 ml 08/29/24 01:12 08/29/24 01:17 Lidocaine Hcl Viscous 2 % 15 Ml Solution MUCOUS MEM 08/29/24 01:13 15 ml ONCE ONE Administration Ondansetron HCl 4 mg 08/29/24 01:12 08/29/24 01:17 Ondansetron Odt 4 Mg Tab.Rapdis TRANSLINGU 08/29/24 01:13 4 mg ONCE ONE Administration Medical Decision Making Medical Decision Making [facility] [place] Narrative: 43-year-old male presents for evaluation of burning upper abdominal pain. He follows with GI for Crohn's disease. He has not had any vomiting or diarrhea. He has no fevers or chills. Is abdominal exam is reassuring. He has no right upper quadrant or right lower quadrant tenderness, no left lower quadrant tenderness. He does have some mild tenderness in the epigastric and left upper quadrant consistent with gastritis. He does have a history of gastritis in his not taking his GI prophylactic medications. Plan to trial GI cocktail. His labs are pending at this time. I have a low suspicion for surgical abdomen at this time, we will defer any advanced imaging Differential Diagnosis Differential Diagnoses: The differential diagnosis associated with the presentation includes Gastritis GERD Crohn's disease Constipation Diverticulitis Lab Data [facility] [place] Lab Attestation statement: I reviewed the patient's lab results. No leukocytosis, the patient has a mild normocytic anemia that is consistent with his baseline. Normal platelet count. No significant electrolyte abnormalities. Patient's lipase is 20, low suspicion for pancreatitis, the patient denies drinking alcohol in the house I have a low suspicion for biliary disease. He has a chronic transaminitis, his AST is elevated to 52 she was consistent with previous values 08/29/24 00:40 08/29/24 00:40 Labs: Lab Results 08/29/24 Range/Units 00:40 WBC 5.4 (4.8-10.8) X10*3/uL RBC 4.59 L (4.60-5.80) X10*6/uL Hgb 13.7 L (14.0-18.0) g/dl Hct 38.9 L (42.0-52.0) % MCV 84.7 (80.0-98.0) fL MCH 29.8 (27.0-33.0) pg MCHC 35.2 (31.0-36.0) g/dl RDW 12.1 (11.0-16.0) % Plt Count 216 (160-400) X10*3/uL MPV 9.0 L (9.4-12.4) fL Immature Gran % (Auto) 0.4 (0.0-0.4) % Neut % (Auto) 46.1 (45-73) % Lymph % (Auto) 40.1 H (20-40) % [place] % (Auto) 7.9 (2-11) % Eos % (Auto) 4.4 H (0-4) % Baso % (Auto) 1.1 (0-2) % Lymph # (Auto) 2.2 (1.2-4.9) X10*3/uL [place] # (Auto) 0.4 (0.1-1.2) X10*3/uL Eos # (Auto) 0.2 (0.0-0.4) X10*3/uL Baso # (Auto) 0.1 (0.0-0.2) X10*3/uL Abs Immat Gran (auto) 0.02 (0.00-0.03) X10*3/uL Absolute Neuts (auto) 2.5 (2.0-8.3) x10*3/uL Absolute Nucleated RBC 0.000 (0.0-0.012) X10*3/uL Nucleated RBC % (auto) 0.0 (0.0-0.2) /100WBC Sodium 141 (135-145) mmol/L Potassium 3.9 (3.3-5.1) mmol/L Chloride 106 (96-108) mmol/L Carbon Dioxide 27 (22-29) mmol/L Anion Gap 12 (12-20) BUN 14 (9-16) mg/dL Creatinine 0.93 (0.5-1.4) mg/dL Estim Creat Clear Calc 100.1 Estimated GFR > 60 Random Glucose 119 H (60-115) mg/dL Calcium 8.9 D (8.4-10.2) mg/dL Total Bilirubin 0.7 (0.0-1.0) mg/dL AST 52 H (5-37) U/L Total Protein 7.5 (6.5-8.0) g/dL Albumin 4.2 (3.5-5.0) g/dL Lipase 20 (8-78) U/L Discharge Plan Discharge Clinical Impression: Abdominal pain Patient Disposition: Home, Self-Care Instructions: Gastroesophageal Reflux Disease (ED) Additional Instructions: Take your at esomeprazole and sucralfate as prescribed Avoid spicy, greasy foods. Follow-up with your GI doctor and your primary doctor. Return for new or worsening symptoms Prescriptions: New sucralfate 1 gram tablet 1 g PO BID Qty: 60 0RF No Action mesalamine 0.375 gram capsule,extended release 24hr 1.5 g PO DAILY Qty: 360 0RF testosterone 20.25 mg/1.25 gram (1.62 %) gel in metered-dose pump 4 pump topical DAILY 30 Days Qty: 150 4RF Rx Instructions: apply 2 pump amount over max area of EACH upper arm and shoulder esomeprazole magnesium 40 mg capsule,delayed release(DR/EC) 40 mg PO DAILY Qty: 90 1RF sucralfate 100 mg/mL suspension 10 ml PO BID Qty: 1000 0RF sucralfate 1 gram tablet 1 g PO BEDTIME Qty: 90 0RF lactulose 20 gram/30 mL solution 20 g PO DAILY PRN (Reason: constipation) Qty: 1200 0RF acetaminophen [Tylenol Extra Strength] 500 mg tablet 500 mg PO Q6H PRN (Reason: fever or pain) Qty: 14 0RF cephalexin 500 mg capsule 500 mg PO Q6H 7 Days Qty: 28 0RF ibuprofen 600 mg tablet 600 mg PO Q8H PRN (Reason: pain) Qty: 10 0RF bupropion HCl 150 mg tablet extended release 24 hr 150 mg PO QAM buprenorphine-naloxone 8-2 mg film 10 mg sublingual DAILY diclofenac sodium [Voltaren Arthritis Pain] 1 % gel 4 g topical QID 30 Days Qty: 100 0RF Rx Instructions: apply to single knee, ankle, foot; for foot includes sole/toes/top of foot budesonide-formoterol [Symbicort] 160-4.5 mcg/actuation HFA aerosol inhaler 2 puff inhalation BID 30 Days Qty: 10.2 11RF docusate sodium 100 mg capsule 100 mg PO BID mirtazapine 15 mg tablet 15 mg PO BEDTIME calcium polycarbophil [Fiber Laxative (ca polycarbo)] 625 mg tablet 1,250 mg PO DAILY 30 Days Qty: 60 3RF duloxetine 60 mg capsule,delayed release(DR/EC) 60 mg PO DAILY loratadine 10 mg tablet 10 mg PO DAILY gabapentin 100 mg capsule 200 mg PO BEDTIME 30 Days Qty: 60 6RF sertraline 25 mg tablet 25 mg PO DAILY hydroxyzine HCl 25 mg tablet 25 mg PO BID docusate sodium [Colace] 100 mg capsule 100 mg PO BID Qty: 90 2RF Print Language: Maldivian
[2024-08-29 02:03] VITALS: BP 130/66; PULSE 53; RESP 16; TEMP 36.6; O2SAT 96
[2024-08-29 02:25] LABS: Alanine Aminotransferase 91 U/L (0-40); Alkaline Phosphatase 68 U/L (39-117)
== END 2024-08-29 02:17 | disposition home or self-care (01) ==
PROVIDERS: Emergency Provider Emergency Medicine; PCP Internal Medicine
DX: R10.10 Upper abdominal pain, unspecified (principal); K50.90 Crohn's disease, unspecified, without complications; K21.9 Gastro-esophageal reflux disease without esophagitis; F17.210 Nicotine dependence, cigarettes, uncomplicated; Z79.899 Other long term (current) drug therapy
CPT/HCPCS: 36415; 80053; 83690; 85025; 99283; 99284

== ENCOUNTER 2024-09-04 01:05 | Emergency (ER) | payer OTHER, SELFPAY ==
--- NOTE | ~2024-09-04 | XR_ITS ---
CLINICAL HISTORY: object fell, swelling and pain 3 view right foot Comparison: None Findings: Bones intact. No dislocations. No significant arthritic change or erosions. No ankle effusion. No radiopaque foreign body. Dorsal soft tissue swelling. Mild calcaneal achilles enthesopathy IMPRESSION: 1. Dorsal soft tissue swelling with no acute osseous abnormality. This document has been electronically signed by: Reza Garduno MD, PHD on 09/04/2024 04:32:11
[2024-09-04 01:09] VITALS: BP 126/76; PULSE 63; RESP 16; TEMP 36.5; O2SAT 95; BMI 27.4
--- NOTE | 2024-09-04 04:07 | PC.NURSE ---
pt waiting for xray of foot, pt wheeling around in wheelchair, no s/s of distress. swelling no changes.
--- NOTE | 2024-09-04 04:46 | PC.NURSE ---
pt is aware of his xray results and wants to leave. pt states he will just sit inside for 2-3 hours more. pt swelling has decreased greatly, no redness pt ambulated well.
== END 2024-09-04 04:49 | disposition left against medical advice (07) ==
PROVIDERS: Emergency Provider Emergency Medicine
DX: M79.671 Pain in right foot (principal); Z53.21 Procedure and treatment not carried out due to patient leaving prior to being seen by health care provider
CPT/HCPCS: 73630; 99281

== ENCOUNTER → 2024-09-04 01:18 | Outpatient (BNV) | payer OTHER, SELFPAY | PROVIDERS: Emergency Provider Emergency Medicine; Visit Provider General Practice | DX: R22.41 Localized swelling, mass and lump, right lower limb (principal) | CPT/HCPCS: 73630 ==

== ENCOUNTER 2024-09-06 21:02 | Emergency (ER) | payer OTHER, SELFPAY ==
--- NOTE | 2024-09-06 | ECG_ITS ---
Test Reason : ABD PAIN Blood Pressure : / mmHG Vent. Rate : 050 BPM Atrial Rate : 050 BPM P-R Int : 144 ms QRS Dur : 092 ms QT Int : 420 ms P-R-T Axes : 049 045 021 degrees QTc Int : 382 ms Sinus bradycardia Otherwise normal ECG When compared with ECG of 05-JUN-2024 11:42, QT has shortened Referred By: Generic ED Physician Electronically Signed By:BRE RUTH MD
[2024-09-06 21:07] VITALS: BP 134/78; PULSE 70; RESP 20; TEMP 37.1; O2SAT 99; BMI 27.1
[2024-09-06 21:20] LABS: MANUAL DIFF FLAG NO
[2024-09-06 21:25] LABS: Basophils Absolute Auto 0.1 X10*3/uL (0.0-0.2); Basophils Percent Auto 1.3 % (0-2); Eosinophils Absolute Auto 0.2 X10*3/uL (0.0-0.4); Hematocrit 40.2 % (42.0-52.0); Hemoglobin 14.1 g/dl (14.0-18.0); Imm Gran Abs Auto 0.01 X10*3/uL (0.00-0.03); Imm Gran Pct Auto 0.2 % (0.0-0.4); Lymphocytes Absolute Auto 2.9 X10*3/uL (1.2-4.9); Lymphocytes Percent Auto 47.9 % (20-40); Mean Corpuscular HGB Conc 35.1 g/dl (31.0-36.0); Mean Corpuscular Hemoglobin 29.5 pg (27.0-33.0); Mean Corpuscular Volume 84.1 fL (80.0-98.0); Mean Platelet Volume 9.3 fL (9.4-12.4); Monocytes Absolute Auto 0.4 X10*3/uL (0.1-1.2); Neutrophils Absolute Auto 2.4 x10*3/uL (2.0-8.3); Neutrophils Percent Auto 40.6 % (45-73); Platelet Count 224 X10*3/uL (160-400); Red Blood Count 4.78 X10*6/uL (4.60-5.80); Red Cell Distribution Width 11.9 % (11.0-16.0)
[2024-09-06 21:45] LABS: Alanine Aminotransferase 80 U/L (0-40); Albumin Level 4.1 g/dL (3.5-5.0); Alkaline Phosphatase 68 U/L (39-117); Anion Gap 12 (12-20); Aspartate Amino Transferase 41 U/L (5-37); Bilirubin Total 0.8 mg/dL (0.0-1.0); Blood Urea Nitrogen 9 mg/dL (9-16); Carbon Dioxide 26 mmol/L (22-29); Chloride 109 mmol/L (96-108); Creatinine Clr Calc Pharmacy 106.1; Estimated Glomerular Filt Rate > 60; Glucose Random 101 mg/dL (60-115); Potassium 3.7 mmol/L (3.3-5.1); Sodium 143 mmol/L (135-145); Total Protein 7.3 g/dL (6.5-8.0)
[2024-09-06 22:11] VITALS: BP 130/72; PULSE 59; RESP 16; TEMP 36.8; O2SAT 98
[2024-09-06 22:50] LABS: Lipase 32 U/L (8-78)
--- NOTE | 2024-09-06 22:53 | ED_ITS ---
HPI - Abdominal Pain General Chief Complaint: Abdominal Pain Stated Complaint: Indigestion Burning in Stomach Time Seen by Provider: 09/06/24 22:39 Source: patient Mode of arrival: ambulatory Limitations: no limitations History of Present Illness ED Provider: DR. Mejia HPI narrative: 43-year-old male came in for evaluation of epigastric burning sensation for about a year ever since he had colonoscopy and upper endoscopy, patient diagnosed with Crohn's colitis and reflux and gastritis. Patient presented today with a year of epigastric pain burning sensation mostly after any food he eats, patient is taking Nexium for gastritis without relief of his symptoms, but not use alcohol, no chest pain, no shortness of breath. No nausea, no vomiting, no diarrhea. Related Data Home Medications ?Medication ?Instructions ?Recorded ?Confirmed bupropion HCl 150 mg 24 hr tablet, 150 mg PO QAM 06/04/20 05/30/24 extended release buprenorphine 8 mg-naloxone 2 mg 10 mg sublingual DAILY 06/12/22 05/30/24 sublingual film docusate sodium 100 mg capsule 100 mg PO BID 03/10/23 05/30/24 mirtazapine 15 mg tablet 15 mg PO BEDTIME 03/10/23 05/30/24 duloxetine 60 mg capsule,delayed 60 mg PO DAILY 12/09/23 05/30/24 release loratadine 10 mg tablet 10 mg PO DAILY 12/09/23 05/30/24 hydroxyzine HCl 25 mg tablet 25 mg PO BID 05/30/24 05/30/24 sertraline 25 mg tablet 25 mg PO DAILY 05/30/24 05/30/24 Previous Rx's ?Medication ?Instructions ?Recorded diclofenac sodium 1 % topical gel 4 g topical QID 30 days #100 grams 12/17/22 (Voltaren Arthritis Pain) acetaminophen 500 mg tablet 500 mg PO Q6H PRN fever or pain 03/08/23 (Tylenol Extra Strength) #14 tabs calcium polycarbophil 625 mg 1,250 mg (2 x 625 mg) PO DAILY 30 07/14/23 tablet (Fiber Laxative (calcium days #60 tabs polycarbophil)) lactulose 20 gram/30 mL oral 20 g (30 mL) PO DAILY PRN 08/14/23 solution constipation #1,200 mL gabapentin 100 mg capsule 200 mg (2 x 100 mg) PO BEDTIME 30 01/10/24 days #60 caps budesonide-formoterol HFA 160 2 puff inhalation BID 30 days 02/02/24 mcg-4.5 mcg/actuation aerosol #10.2 grams inhaler (Symbicort) mesalamine 0.375 gram 1.5 g (4 x 0.375 gram) PO DAILY 04/17/24 capsule,extended release 24 hr #360 caps cephalexin 500 mg capsule 500 mg PO Q6H 7 days #28 caps 05/11/24 ibuprofen 600 mg tablet 600 mg PO Q8H PRN pain #10 tabs 05/11/24 testosterone 4 pump topical DAILY 30 days #150 06/27/24 grams docusate sodium 100 mg capsule 100 mg PO BID #90 caps 07/07/24 (Colace) esomeprazole magnesium 40 mg 40 mg PO DAILY #90 caps 07/18/24 capsule,delayed release sucralfate 100 mg/mL oral 10 ml PO BID #1,000 mL 07/19/24 suspension sucralfate 1 gram tablet 1 g PO BEDTIME #90 tabs 08/15/24 sucralfate 1 gram tablet 1 g PO BID #60 tabs 08/29/24 omeprazole 40 mg capsule,delayed 40 mg PO DAILY #20 caps 09/06/24 release Allergies Allergy/AdvReac Type Severity Reaction Status Date / Time shellfish derived Allergy Intermediate Rash Verified 09/06/24 21:09 Review of Systems Review of Systems All other systems are reviewed and are negative Constitutional: Reports as per HPI and Reports no additional constitutional complaints Eyes: Reports as per HPI and Reports no additional eye complaints Reports system reviewed and no additional complaints, except as documented Cardiovascular: Reports as per HPI and Reports no additional cardiovascular complaints Respiratory: Reports as per HPI and Reports no additional respiratory complaints Gastrointestinal: Reports as per HPI and Reports no additional gastrointestinal complaints Genitourinary: Reports no additional female genitourinary complaints Musculoskeletal: Reports no additional musculoskeletal complaints Skin/Breast: Reports system reviewed and no additional complaints, except as docu Psychiatric: Reports no additional psychiatric complaints Endocrine: Reports no additional endocrine complaints Hematologic/Lymphatic: Reports no additional hematologic/lymphatic complaints Allergic/Immunologic: Reports no additional allergic/immunologic complaints Reports system reviewed and no additional complaints, except as documented and Reports Abnormal speech present PMFSH Past Medical History Medical History Hypogonadism, testicular Hilar lymphadenopathy Fibromyalgia GERD (gastroesophageal reflux disease) Scrotal pain Rhinosinusitis 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 Mother No problems noted. Paternal Aunt Lung cancer Social History Social History Alcohol intake: never Patient Tobacco Use Status: Current everyday Tobacco user Tobacco use type: Cigarette Years Smoked: 23 Years e-Cigarette/Vaping Use: Currently Using Advance Directives: No Advance Directives Information Provided: No Current occupational status: disabled Physical Exam ED Vital Signs: Vital Signs - 24 hr 09/06/24 21:07 09/06/24 22:11 Temperature 98.8 F 98.3 F Pulse Rate 70 59 Respiratory Rate 20 16 Blood Pressure 134/78 130/72 Pulse Oximetry 99 98 Oxygen Delivery Method Room Air Room Air BMI result Body Mass Index 27.1 Vital signs have been reviewed and appear to be correct. Blood pressure elevated. Heart rate normal. Respiratory rate normal. Temperature normal. Oxygen saturation normal. Appearance: Alert. Oriented X3. No acute distress. Head: Normal external exam. Normocephalic. Atraumatic. No Goode signs noted. No raccoon eyes noted Eyes: PERRLA. EOMI. Conjunctiva and sclera normal. Eyelids normal. ENT: TM's Normal. Pharynx normal. Uvula midline. Moist mucous membranes. No trismus noted. No drooling noted. No muffled voice noted. Neck: Normal inspection. Neck supple. FROM. No adenopathy. Thyroid Normal. No meningeal signs. No neck mass noted. CVS: Normal heart rate and rhythm. Heart sound normal. No murmurs noted. Pulses normal throughout. Respiratory: No respiratory distress. Painless inspiration. Breath sounds normal. No wheezes/rales/rhonchi noted. Chest nontender. No accessory muscle usage noted or decreased air movement noted. Abdomen: Soft and nontender. Bowel sounds normal in all 4 quadrants. No distention noted. No organomegaly noted. No visible injury noted. Back: No CVA tenderness. Full range of motion noted. Skin: Skin warm and dry. Normal skin color. Normal skin turgor. No rashes/lesions/lacerations noted. Extremities: No lower extremity edema. Extremities exhibit normal range of motion. Extremities nontender. Neuro: Oriented X 3. Cranial nerve exam: II-XII are grossly intact No motor deficit. No sensory deficit. Reflexes normal. Course Reevaluation(s) Reevaluation #1: 43-year-old male history of chronic epigastric pain due to gastritis/Crohn's disease patient is already have a follow-up with GI. Will start on Prilosec. Time: 23:51 Medical Decision Making Differential Diagnosis Differential Diagnoses: The differential diagnosis associated with the presentation includes (Gastritis, gastroenteritis, ACS, pancreatitis, colitis, electrolyte derangement, severe anemia.) Admission/Observation Consideration of admission/observation: Escalation of care including admission/observation considered Lab Data MDM Lab Attestation statement: I reviewed the patient's lab results. 09/06/24 21:13 09/06/24 21:13 Labs: Lab Results 09/06/24 09/06/24 Range/Units 21:13 22:45 WBC 6.0 (4.8-10.8) X10*3/uL RBC 4.78 (4.60-5.80) X10*6/uL Hgb 14.1 (14.0-18.0) g/dl Hct 40.2 L (42.0-52.0) % MCV 84.1 (80.0-98.0) fL MCH 29.5 (27.0-33.0) pg MCHC 35.1 (31.0-36.0) g/dl RDW 11.9 (11.0-16.0) % Plt Count 224 (160-400) X10*3/uL MPV 9.3 L (9.4-12.4) fL Immature Gran % (Auto) 0.2 (0.0-0.4) % Neut % (Auto) 40.6 L (45-73) % Lymph % (Auto) 47.9 H (20-40) % [place] % (Auto) 7.0 (2-11) % Eos % (Auto) 3.0 (0-4) % Baso % (Auto) 1.3 (0-2) % Lymph # (Auto) 2.9 (1.2-4.9) X10*3/uL [place] # (Auto) 0.4 (0.1-1.2) X10*3/uL Eos # (Auto) 0.2 (0.0-0.4) X10*3/uL Baso # (Auto) 0.1 (0.0-0.2) X10*3/uL Abs Immat Gran (auto) 0.01 (0.00-0.03) X10*3/uL Absolute Neuts (auto) 2.4 (2.0-8.3) x10*3/uL Absolute Nucleated RBC 0.000 (0.0-0.012) X10*3/uL Nucleated RBC % (auto) 0.0 (0.0-0.2) /100WBC Sodium 143 (135-145) mmol/L Potassium 3.7 (3.3-5.1) mmol/L Chloride 109 H (96-108) mmol/L Carbon Dioxide 26 (22-29) mmol/L Anion Gap 12 (12-20) BUN 9 (9-16) mg/dL Creatinine 0.81 (0.5-1.4) mg/dL Estim Creat Clear Calc 106.1 Estimated GFR > 60 Random Glucose 101 (60-115) mg/dL Calcium 9.0 (8.4-10.2) mg/dL Total Bilirubin 0.8 (0.0-1.0) mg/dL AST 41 H (5-37) U/L ALT 80 H (0-40) U/L Alkaline Phosphatase 68 (39-117) U/L Troponin I High Sens 9.3 (<3.5-35.0) ng/L Total Protein 7.3 (6.5-8.0) g/dL Albumin 4.1 (3.5-5.0) g/dL Lipase 32 (8-78) U/L Chronic Conditions Patient?s care impacted by: Other (Crohn's disease, gastritis.) Discharge Plan Discharge Clinical Impression: Gastritis Patient Disposition: Home, Self-Care Instructions: Gastritis (ED) Prescriptions: New omeprazole 40 mg capsule,delayed release(DR/EC) 40 mg PO DAILY Qty: 20 0RF No Action mesalamine 0.375 gram capsule,extended release 24hr 1.5 g PO DAILY Qty: 360 0RF testosterone 20.25 mg/1.25 gram (1.62 %) gel in metered-dose pump 4 pump topical DAILY 30 Days Qty: 150 4RF Rx Instructions: apply 2 pump amount over max area of EACH upper arm and shoulder esomeprazole magnesium 40 mg capsule,delayed release(DR/EC) 40 mg PO DAILY Qty: 90 1RF sucralfate 100 mg/mL suspension 10 ml PO BID Qty: 1000 0RF sucralfate 1 gram tablet 1 g PO BEDTIME Qty: 90 0RF lactulose 20 gram/30 mL solution 20 g PO DAILY PRN (Reason: constipation) Qty: 1200 0RF acetaminophen [Tylenol Extra Strength] 500 mg tablet 500 mg PO Q6H PRN (Reason: fever or pain) Qty: 14 0RF cephalexin 500 mg capsule 500 mg PO Q6H 7 Days Qty: 28 0RF ibuprofen 600 mg tablet 600 mg PO Q8H PRN (Reason: pain) Qty: 10 0RF sucralfate 1 gram tablet 1 g PO BID Qty: 60 0RF bupropion HCl 150 mg tablet extended release 24 hr 150 mg PO QAM buprenorphine-naloxone 8-2 mg film 10 mg sublingual DAILY diclofenac sodium [Voltaren Arthritis Pain] 1 % gel 4 g topical QID 30 Days Qty: 100 0RF Rx Instructions: apply to single knee, ankle, foot; for foot includes sole/toes/top of foot budesonide-formoterol [Symbicort] 160-4.5 mcg/actuation HFA aerosol inhaler 2 puff inhalation BID 30 Days Qty: 10.2 11RF docusate sodium 100 mg capsule 100 mg PO BID mirtazapine 15 mg tablet 15 mg PO BEDTIME calcium polycarbophil [Fiber Laxative (ca polycarbo)] 625 mg tablet 1,250 mg PO DAILY 30 Days Qty: 60 3RF duloxetine 60 mg capsule,delayed release(DR/EC) 60 mg PO DAILY loratadine 10 mg tablet 10 mg PO DAILY gabapentin 100 mg capsule 200 mg PO BEDTIME 30 Days Qty: 60 6RF sertraline 25 mg tablet 25 mg PO DAILY hydroxyzine HCl 25 mg tablet 25 mg PO BID docusate sodium [Colace] 100 mg capsule 100 mg PO BID Qty: 90 2RF Referrals: Rik Flaherty MD [Primary Care Provider] - Hung Engel MD [Physician] - Print Language: Ghanaian
[2024-09-06 23:11] LABS: Troponin-I High Sensitivity 9.3 ng/L (<3.5-35.0)
[2024-09-07 00:05] VITALS: BP 130/72; PULSE 54; RESP 18; TEMP 36.9; O2SAT 99
--- NOTE | 2024-09-07 00:31 | PC.NURSE ---
pt a&o, no n/v, pt reports some relief, reviewed discharge instructions with pt. pt verbalized understanding. no sign of distress, pt had steady gait upon discharge.
[2024-09-07 00:32] VITALS: BP 130/72; PULSE 54; RESP 18; TEMP 36.9; O2SAT 99
== END 2024-09-07 00:33 | disposition home or self-care (01) ==
PROVIDERS: Emergency Provider Emergency Medicine; PCP Internal Medicine
DX: K29.70 Gastritis, unspecified, without bleeding (principal); R10.13 Epigastric pain; F17.210 Nicotine dependence, cigarettes, uncomplicated
CPT/HCPCS: 36415; 80053; 83690; 84484; 85025; 93005; 99283; 99285

== ENCOUNTER → 2024-09-06 22:55 | Outpatient (BNV) | payer OTHER, SELFPAY | PROVIDERS: Emergency Provider Emergency Medicine; PCP Internal Medicine; Visit Provider Internal Medicine Cardiovascular Disease | DX: R94.31 Abnormal electrocardiogram [ECG] [EKG] (principal) | CPT/HCPCS: 93010 ==

== ENCOUNTER 2024-09-19 15:43 | Emergency (ER) | payer OTHER, SELFPAY ==
[2024-09-19 16:15] VITALS: BP 124/58; PULSE 66; RESP 20; TEMP 36.8; O2SAT 99; BMI 27.4
--- NOTE | 2024-09-19 17:53 | ECG_ITS ---
Test Reason : SOB Blood Pressure : */* mmHG Vent. Rate : 64 BPM Atrial Rate : 64 BPM P-R Int : 136 ms QRS Dur : 86 ms QT Int : 402 ms P-R-T Axes : 56 57 39 degrees QTcB Int : 414 ms Normal sinus rhythm Normal ECG When compared with ECG of 06-Sep-2024 22:55, No significant change was found Referred By: Roberto Chaparro Electronically Signed By: Aries Johnson
--- NOTE | 2024-09-19 18:05 | ED_ITS ---
HPI - General Adult General Chief complaint: Dyspnea Stated complaint: SOB History of Present Illness HPI narrative: Patient left before completion of treatment by ED provider. Related Data Home Medications ?Medication ?Instructions ?Recorded ?Confirmed bupropion HCl 150 mg 24 hr tablet, 150 mg PO QAM 06/04/20 05/30/24 extended release buprenorphine 8 mg-naloxone 2 mg 10 mg sublingual DAILY 06/12/22 05/30/24 sublingual film docusate sodium 100 mg capsule 100 mg PO BID 03/10/23 05/30/24 mirtazapine 15 mg tablet 15 mg PO BEDTIME 03/10/23 05/30/24 duloxetine 60 mg capsule,delayed 60 mg PO DAILY 12/09/23 05/30/24 release loratadine 10 mg tablet 10 mg PO DAILY 12/09/23 05/30/24 hydroxyzine HCl 25 mg tablet 25 mg PO BID 05/30/24 05/30/24 sertraline 25 mg tablet 25 mg PO DAILY 05/30/24 05/30/24 Previous Rx's ?Medication ?Instructions ?Recorded diclofenac sodium 1 % topical gel 4 g topical QID 30 days #100 grams 12/17/22 (Voltaren Arthritis Pain) acetaminophen 500 mg tablet 500 mg PO Q6H PRN fever or pain 03/08/23 (Tylenol Extra Strength) #14 tabs calcium polycarbophil 625 mg 1,250 mg (2 x 625 mg) PO DAILY 30 07/14/23 tablet (Fiber Laxative (calcium days #60 tabs polycarbophil)) lactulose 20 gram/30 mL oral 20 g (30 mL) PO DAILY PRN 08/14/23 solution constipation #1,200 mL gabapentin 100 mg capsule 200 mg (2 x 100 mg) PO BEDTIME 30 01/10/24 days #60 caps budesonide-formoterol HFA 160 2 puff inhalation BID 30 days 02/02/24 mcg-4.5 mcg/actuation aerosol #10.2 grams inhaler (Symbicort) mesalamine 0.375 gram 1.5 g (4 x 0.375 gram) PO DAILY 04/17/24 capsule,extended release 24 hr #360 caps cephalexin 500 mg capsule 500 mg PO Q6H 7 days #28 caps 05/11/24 testosterone 4 pump topical DAILY 30 days #150 06/27/24 grams docusate sodium 100 mg capsule 100 mg PO BID #90 caps 07/07/24 (Colace) sucralfate 1 gram tablet 1 g PO BEDTIME #90 tabs 08/15/24 omeprazole 20 mg capsule,delayed 20 mg PO BID #60 caps 09/12/24 release sucralfate 100 mg/mL oral 10 ml PO QID #1,000 mL 09/12/24 suspension Allergies Allergy/AdvReac Type Severity Reaction Status Date / Time shellfish derived Allergy Intermediate Rash Verified 09/19/24 21:30 [facility] Past Medical History Medical History Hypogonadism, testicular Hilar lymphadenopathy Fibromyalgia GERD (gastroesophageal reflux disease) Scrotal pain Rhinosinusitis Deviated nasal bone [id number] syndrome COVID-19 Anxiety Surgical History History of esophagogastroduodenoscopy (EGD) Hx of colonoscopy History of cornea transplant Family History Family History Father No problems noted. Mother No problems noted. Paternal Aunt Lung cancer Social History Social History Alcohol intake: never Patient Tobacco Use Status: Current everyday Tobacco user Tobacco use type: Cigarette Years Smoked: 23 Years e-Cigarette/Vaping Use: Currently Using Do you have a plan to hurt others: No Plan Current occupational status: disabled Physical Exam ED Vital Signs: Vital Signs - 24 hr 09/19/24 16:15 Temperature 98.2 F Pulse Rate 66 Respiratory Rate 20 Blood Pressure 124/58 L Pulse Oximetry 99 Oxygen Delivery Method Room Air BMI result Body Mass Index 27.4 Course Course Course Narrative: RME: 44 yold male presents to the ED SOB for one month. patient it not toxic appearing. labs, EKG, and chest xray Discharge Plan Discharge Clinical Impression: Chronic dyspnea Patient Disposition: Left W/O Completing Treatment Prescriptions: No Action mesalamine 0.375 gram capsule,extended release 24hr 1.5 g PO DAILY Qty: 360 0RF testosterone 20.25 mg/1.25 gram (1.62 %) gel in metered-dose pump 4 pump topical DAILY 30 Days Qty: 150 4RF Rx Instructions: apply 2 pump amount over max area of EACH upper arm and shoulder sucralfate 1 gram tablet 1 g PO BEDTIME Qty: 90 0RF sucralfate 100 mg/mL suspension 10 ml PO QID Qty: 1000 0RF omeprazole 20 mg capsule,delayed release(DR/EC) 20 mg PO BID Qty: 60 0RF lactulose 20 gram/30 mL solution 20 g PO DAILY PRN (Reason: constipation) Qty: 1200 0RF acetaminophen [Tylenol Extra Strength] 500 mg tablet 500 mg PO Q6H PRN (Reason: fever or pain) Qty: 14 0RF cephalexin 500 mg capsule 500 mg PO Q6H 7 Days Qty: 28 0RF bupropion HCl 150 mg tablet extended release 24 hr 150 mg PO QAM buprenorphine-naloxone 8-2 mg film 10 mg sublingual DAILY diclofenac sodium [Voltaren Arthritis Pain] 1 % gel 4 g topical QID 30 Days Qty: 100 0RF Rx Instructions: apply to single knee, ankle, foot; for foot includes sole/toes/top of foot budesonide-formoterol [Symbicort] 160-4.5 mcg/actuation HFA aerosol inhaler 2 puff inhalation BID 30 Days Qty: 10.2 11RF docusate sodium 100 mg capsule 100 mg PO BID mirtazapine 15 mg tablet 15 mg PO BEDTIME calcium polycarbophil [Fiber Laxative (ca polycarbo)] 625 mg tablet 1,250 mg PO DAILY 30 Days Qty: 60 3RF duloxetine 60 mg capsule,delayed release(DR/EC) 60 mg PO DAILY loratadine 10 mg tablet 10 mg PO DAILY gabapentin 100 mg capsule 200 mg PO BEDTIME 30 Days Qty: 60 6RF sertraline 25 mg tablet 25 mg PO DAILY hydroxyzine HCl 25 mg tablet 25 mg PO BID docusate sodium [Colace] 100 mg capsule 100 mg PO BID Qty: 90 2RF Discharge Date/Time: 09/19/24 20:23
--- NOTE | 2024-09-19 19:38 | MHC.EDTECH ---
not able to obtain labs nor EKG at this time due to pt LWCT
== END 2024-09-19 20:23 | disposition left against medical advice (07) ==
LOC: HO.ED 20:22
PROVIDERS: Emergency Provider Emergency Medicine; PCP Internal Medicine
DX: R06.00 Dyspnea, unspecified (principal); R06.02 Shortness of breath; F17.210 Nicotine dependence, cigarettes, uncomplicated
CPT/HCPCS: 93005; 99281

== ENCOUNTER → 2024-09-19 17:53 | Outpatient (BNV) | payer OTHER, SELFPAY | PROVIDERS: Emergency Provider Emergency Medicine; PCP Internal Medicine; Visit Provider Internal Medicine Cardiovascular Disease | DX: R06.02 Shortness of breath (principal) | CPT/HCPCS: 93010 ==

== ENCOUNTER 2024-09-19 21:12 | Emergency (ER) | payer OTHER, SELFPAY ==
--- NOTE | ~2024-09-19 | XR_ITS ---
CLINICAL HISTORY: sob 2 view chest x-ray Comparison: CR/KS/SR - XR CHEST 2V - 06/05/24 11:59 EDT Findings: The lungs are clear. Heart size is normal. No acute fracture. IMPRESSION: 1. No acute findings. This document has been electronically signed by: Adamaris Dolan MD on 09/19/2024 22:12:37
[2024-09-19 21:29] VITALS: BP 137/89; PULSE 75; RESP 18; TEMP 36.6; O2SAT 98; BMI 27.4
[2024-09-19 22:22] LABS: Influenza A PCR NEGATIVE (Negative); Influenza B PCR NEGATIVE (Negative); Resp Syncy Virus RNA Qual PCR NEGATIVE (Negative); SARS COV2 PCR INHOUSE NEGATIVE (Negative)
== END 2024-09-20 00:19 | disposition left against medical advice (07) ==
PROVIDERS: Emergency Provider Emergency Medicine; PCP Internal Medicine
DX: R06.02 Shortness of breath (principal); Z03.818 Encounter for observation for suspected exposure to other biological agents ruled out; F17.200 Nicotine dependence, unspecified, uncomplicated
CPT/HCPCS: 0241U; 71046; 93005; 99281; 99283

== ENCOUNTER → 2024-09-19 21:48 | Outpatient (BNV) | payer OTHER, SELFPAY | PROVIDERS: PCP Internal Medicine; Visit Provider Radiology Diagnostic Radiology | DX: R06.02 Shortness of breath (principal) | CPT/HCPCS: 71046 ==

== ENCOUNTER 2024-10-11 14:13 | Emergency (ER) | payer OTHER, SELFPAY ==
--- NOTE | ~2024-10-11 | XR_ITS ---
EXAMINATION: XR CHEST CLINICAL INFORMATION: chest pain COMPARISON: None available. TECHNIQUE: 2 views of the chest were obtained. FINDINGS: No significant abnormality is noted involving the heart, lungs, mediastinum, bony thorax or soft tissues. XR/XR chest 2V IMPRESSION: Unremarkable chest examination. Electronically signed by: Andrew Majano MD 10/11/2024 02:53 PM [facility]
--- NOTE | 2024-10-11 14:15 | ECG_ITS ---
Test Reason : ARM PAIN Blood Pressure : */* mmHG Vent. Rate : 61 BPM Atrial Rate : 61 BPM P-R Int : 146 ms QRS Dur : 84 ms QT Int : 412 ms P-R-T Axes : 51 45 31 degrees QTcB Int : 414 ms Normal sinus rhythm Normal ECG When compared with ECG of 19-Sep-2024 21:38, No significant change was found Referred By: Generic ED Physician Electronically Signed By: Aries Johnson
[2024-10-11 14:36] VITALS: BP 126/78; PULSE 75; RESP 16; TEMP 37; O2SAT 97; BMI 27.8
--- NOTE | 2024-10-11 14:53 | ED.CHESTPAIN ---
HPI - Chest Pain General Chief Complaint: Chest Pain Stated Complaint: CP, arm pain, sob Time Seen by Provider: 10/11/24 20:17 Source: patient Mode of arrival: ambulatory Limitations: no limitations History of Present Illness ED Provider: KATELYN MENSAH PA-C HPI narrative: 44 year old male with pmhx significant for opioid use disorder on suboxone, fibromyalgia, GERD, anxiety presents to the ED today for evaluation of intermittent chest pain and palpitations x1 year. Chest pain is diffuse in his not radiate. Not exacerbated with exertion. Admits symptoms are more prominent when he lies down for bed at night. Has been prescribed medications for his anxiety in the past however does not like taking pills and thus, is not compliant with his medications. He did not trial any [id number] analgesia for pain [employer]. No recent travel or long car rides. He has followed up with cardiology with unremarkable holter monitor in the past/ stress echo. Denies fever, chills, sore throat, cough, hemoptysis, calf pain/tenderness. Related Data Home Medications ?Medication ?Instructions ?Recorded ?Confirmed bupropion HCl 150 mg 24 hr tablet, 150 mg PO QAM 06/04/20 05/30/24 extended release buprenorphine 8 mg-naloxone 2 mg 10 mg sublingual DAILY 06/12/22 05/30/24 sublingual film docusate sodium 100 mg capsule 100 mg PO BID 03/10/23 05/30/24 mirtazapine 15 mg tablet 15 mg PO BEDTIME 03/10/23 05/30/24 duloxetine 60 mg capsule,delayed 60 mg PO DAILY 12/09/23 05/30/24 release loratadine 10 mg tablet 10 mg PO DAILY 12/09/23 05/30/24 hydroxyzine HCl 25 mg tablet 25 mg PO BID 05/30/24 05/30/24 sertraline 25 mg tablet 25 mg PO DAILY 05/30/24 05/30/24 Previous Rx's ?Medication ?Instructions ?Recorded diclofenac sodium 1 % topical gel 4 g topical QID 30 days #100 grams 12/17/22 (Voltaren Arthritis Pain) acetaminophen 500 mg tablet 500 mg PO Q6H PRN fever or pain 03/08/23 (Tylenol Extra Strength) #14 tabs calcium polycarbophil 625 mg 1,250 mg (2 x 625 mg) PO DAILY 30 07/14/23 tablet (Fiber Laxative (calcium days #60 tabs polycarbophil)) lactulose 20 gram/30 mL oral 20 g (30 mL) PO DAILY PRN 08/14/23 solution constipation #1,200 mL gabapentin 100 mg capsule 200 mg (2 x 100 mg) PO BEDTIME 30 01/10/24 days #60 caps budesonide-formoterol HFA 160 2 puff inhalation BID 30 days 02/02/24 mcg-4.5 mcg/actuation aerosol #10.2 grams inhaler (Symbicort) mesalamine 0.375 gram 1.5 g (4 x 0.375 gram) PO DAILY 04/17/24 capsule,extended release 24 hr #360 caps cephalexin 500 mg capsule 500 mg PO Q6H 7 days #28 caps 05/11/24 testosterone 4 pump topical DAILY 30 days #150 06/27/24 grams docusate sodium 100 mg capsule 100 mg PO BID #90 caps 07/07/24 (Colace) sucralfate 1 gram tablet 1 g PO BEDTIME #90 tabs 08/15/24 sucralfate 100 mg/mL oral 10 ml PO QID #1,000 mL 09/12/24 suspension omeprazole 20 mg capsule,delayed 20 mg PO BID 90 days #180 caps 10/09/24 release Allergies Allergy/AdvReac Type Severity Reaction Status Date / Time shellfish derived Allergy Intermediate Rash Verified 10/11/24 14:38 Review of Systems Review of Systems: Constitutional: No fever, chills, fatigue, night sweats, weight changes ENT/Mouth: No ear pain, hearing loss, nasal congestion, sinus pain, rhinorrhea, sore throat Eyes: No eye pain, swelling, redness, vision changes, discharge Cardio: No palpitations, ROBERTS, orthopnea, peripheral edema, +chest pain Pulm: No SOB, cough, sputum, wheezing, dyspnea, hemoptysis GI: No nausea, vomiting, hematemesis, abdominal pain, diarrhea, constipation, hematochezia, melena : No irregular bleeding, dysuria, frequency, urgency, hesitancy, hematuria, flank pain, urinary flow changes, urinary incontinence or retention MSK: No back pain, neck pain, joint pain, myalgias Skin: No lesions, rashes Neuro: No weakness, numbness, paresthesias, LOC, dizziness, headache Psych: No anxiety/panic, depression, SI/HI, AH/VH All other systems reviewed and are negative. [facility] Past Medical History Attestation statement: The following information was validated with the patient. 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 Mother No problems noted. Paternal Aunt Lung cancer Social History Social History Alcohol intake: never Patient Tobacco Use Status: Current everyday Tobacco user Tobacco use type: Cigarette Years Smoked: 23 Years e-Cigarette/Vaping Use: Currently Using Advance Directives: No Advance Directives Information Provided: No Current occupational status: disabled Physical Exam Vital Signs: Vital Signs: Last Vital Signs Temp 98.3 F 10/11/24 16:35 Pulse 67 10/11/24 16:35 Resp 20 10/11/24 16:35 BP 134/88 10/11/24 16:35 Pulse Ox 98 10/11/24 16:35 O2 Del Method Room Air 10/11/24 16:35 BMI result Body Mass Index 27.8 Vital signs stable General: Well appearing, in no acute distress. Skin: Warm, dry, intact. No rashes or lesions. Head: Normocephalic, atraumatic. EENT: Hearing is intact b/l. Conjunctiva clear. PERRLA. EOM intact. Moist mucous membranes.? Neck: Supple without LAD. FROM. Trachea midline.? Cardiac: Chest wall symmetric. RRR. Lungs: Normal respiratory effort without accessory muscle use. CTA bilaterally. No rales, rhonchi, or wheezes.? Back: No midline spinous or paraspinal tenderness. No step off deformity. Ext: Upper and lower extremities atraumatic, without tenderness, deformity, swelling or erythema. No calf tenderness or swelling. No pitting edema. Neuro: AOx3. Normal speech. Ambulating with steady gait. Psych: Appropriate mood and affect. Responds appropriately to questions. Course Course Course Narrative: This is a Rapid Medical Examination (RME) performed by Drea Mensah PA-C in triage. Full HPI, ROS, assessment and treatment plan per primary provider in the Main ED. 44 yo male hx of here for eval of chest pain and SOB x1 year. he has been evaluated by cardiology w/ holter monitor. Vapes occasionally. Plan: labs, ekg, cxr Reevaluation(s) Reevaluation #1: 2020 -- CBC without leukocytosis or left shift. No anemia. H&H stable. Chemistry without acute electrolyte abnormality requiring intervention. No JAMES. Liver function at baseline. Initial troponin 7.2, delta 7.4. EKG showing normal sinus rhythm with a rate of 61 beats per minute, QT 412, QTC 414, no acute ischemic changes or ST elevations. Negative COVID, flu, RSV. CXR without infiltrate or consolidation. > on review of chart, negative stress test in 2022. Unremarkable Holter monitor in 2022. > discussed all results with patient. He has atypical chest pain. Advised to follow up with PCP and de alcoholizer. Patient has remained stable throughout ED visit today. Discussed worrisome signs and symptoms and when to return to the ED. All questions answered at this time. Patient is agreeable with disposition and stable for discharge. Medical Decision Making Medical Decision Making MDM Narrative: 44 year old male with pmhx significant for opioid use disorder on suboxone, fibromyalgia, GERD, anxiety presents to the ED today for evaluation of intermittent chest pain and palpitations x1 year. Vital signs stable. Not hypoxic or tachycardic. He is well-appearing. Physical exam is quite benign. History without high risk features (not substernal, no exertional component, not relieved with rest).? Minimal CAD risk factors (including age). Negative stress echo in 2022. Exam without evidence of volume overload. EKG without signs of active ischemia. Given the timing of pain to ED presentation, plan to send delta troponin to evaluate for NSTEMI. Differential includes anemia, electrolyte abnormality, dehydration, anxiety, viral syndrome, bronchitis, pneumonia, costochondritis, pleuritis, MSK pain. Presentation not consistent with acute PE (perc negative), pneumothorax, thoracic aortic dissection, cardiac effusion or tamponade. Plan: labs, troponin, EKG, CXR, pain control, reassessment Differential Diagnosis Differential Diagnoses: The differential diagnosis associated with the presentation includes as above. Admission/Observation Not indicated Lab Data MDM Lab Attestation statement: I reviewed the patient's lab results. as above. 10/11/24 15:30 10/11/24 15:30 Labs: Lab Results 10/11/24 10/11/24 Range/Units 15:30 19:32 WBC 5.5 (4.8-10.8) X10*3/uL RBC 4.99 (4.60-5.80) X10*6/uL Hgb 14.6 (14.0-18.0) g/dl Hct 42.5 (42.0-52.0) % MCV 85.2 (80.0-98.0) fL MCH 29.3 (27.0-33.0) pg MCHC 34.4 (31.0-36.0) g/dl RDW 11.9 (11.0-16.0) % Plt Count 208 (160-400) X10*3/uL MPV 9.1 L (9.4-12.4) fL Immature Gran % (Auto) 0.2 (0.0-0.4) % Neut % (Auto) 54.2 (45-73) % Lymph % (Auto) 36.2 (20-40) % Waller % (Auto) 5.5 (2-11) % Eos % (Auto) 2.6 (0-4) % Baso % (Auto) 1.3 (0-2) % Lymph # (Auto) 2.0 (1.2-4.9) X10*3/uL Waller # (Auto) 0.3 (0.1-1.2) X10*3/uL Eos # (Auto) 0.1 (0.0-0.4) X10*3/uL Baso # (Auto) 0.1 (0.0-0.2) X10*3/uL Abs Immat Gran (auto) 0.01 (0.00-0.03) X10*3/uL Absolute Neuts (auto) 3.0 (2.0-8.3) x10*3/uL Absolute Nucleated RBC 0.000 (0.0-0.012) X10*3/uL Nucleated RBC % (auto) 0.0 (0.0-0.2) /100WBC PT 11.6 (10.9-12.4) SEC INR 1.0 (0.9-1.1) Sodium 141 (135-145) mmol/L Potassium 4.1 (3.3-5.1) mmol/L Chloride 108 (96-108) mmol/L Carbon Dioxide 25 (22-29) mmol/L Anion Gap 12 (12-20) BUN 13 (9-16) mg/dL Creatinine 0.89 (0.5-1.4) mg/dL Estim Creat Clear Calc 104.1 Estimated GFR > 60 Random Glucose 111 (60-115) mg/dL Calcium 9.2 (8.4-10.2) mg/dL Magnesium 2.2 (1.6-2.6) mg/dL Total Bilirubin 0.5 (0.0-1.0) mg/dL AST 61 H (5-37) U/L ALT 117 H (0-40) U/L Alkaline Phosphatase 72 (39-117) U/L Troponin I High Sens 7.2 7.4 (<3.5-35.0) ng/L Total Protein 7.9 (6.5-8.0) g/dL Albumin 4.1 (3.5-5.0) g/dL Influenza Type A (PCR) NEGATIVE (Negative) Influenza Type B (PCR) NEGATIVE (Negative) RSV RNA Qual (PCR) NEGATIVE (Negative) SARS-CoV-2 RNA (RT-PCR) NEGATIVE (Negative) Independent Interpretation I performed an independent interpretation of an: EKG and Plain X-Ray Interpretation: Chest x-ray without consolidation or infiltrate EKG showing normal sinus rhythm, rate of 61 beats per minute, no acute ischemic changes or ST elevations Radiology Impression Discussion of test interpretation with radiology: I have reviewed the radiologist's reading. Radiologist Impression: Procedure(s): XR chest 2V Accession Number(s): [id number] cc: Physician,Unknown ; Katelyn Mensah~ EXAMINATION: XR CHEST CLINICAL INFORMATION: chest pain COMPARISON: None available. TECHNIQUE: 2 views of the chest were obtained. FINDINGS: No significant abnormality is noted involving the heart, lungs, mediastinum, bony thorax or soft tissues. XR/XR chest 2V IMPRESSION: Unremarkable chest examination. Electronically signed by: Andrew Majano MD 10/11/2024 02:53 PM EST External Record Review External record reviewed: Inpatient record, Office record and Outpatient record Prescription Management I considered prescription management with: Pain Medication Social Determinants Patient?s care significantly limited by Social Determinants of Health including: Other Social Determinant of Health Critical Care Time Critical Care Time Critical Care Time: No Discharge Plan Discharge Clinical Impression: Atypical chest pain Patient Disposition: Home, Self-Care Instructions: Chest Pain (ED) Additional Instructions: You were evaluated in the Emergency Department today for chest pain. Your evaluation has shown no signs of medical conditions requiring emergent intervention at this time, however I recommend that you follow up with your primary care provider or your de alcoholizer as soon as possible for further testing as an outpatient. If you do not have one, a referral has been provided. Please call them to make an appointment, they will not call you. Take tylenol or motrin at home for pain. Return to the Emergency Department if you experience worsening or uncontrolled chest pain, shortness of breath, light headedness, feeling faint, nausea, vomiting, or any other concerning symptoms. Prescriptions: No Action mesalamine 0.375 gram capsule,extended release 24hr 1.5 g PO DAILY Qty: 360 0RF testosterone 20.25 mg/1.25 gram (1.62 %) gel in metered-dose pump 4 pump topical DAILY 30 Days Qty: 150 4RF Rx Instructions: apply 2 pump amount over max area of EACH upper arm and shoulder sucralfate 1 gram tablet 1 g PO BEDTIME Qty: 90 0RF sucralfate 100 mg/mL suspension 10 ml PO QID Qty: 1000 0RF omeprazole 20 mg capsule,delayed release(DR/EC) 20 mg PO BID 90 Days Qty: 180 0RF lactulose 20 gram/30 mL solution 20 g PO DAILY PRN (Reason: constipation) Qty: 1200 0RF acetaminophen [Tylenol Extra Strength] 500 mg tablet 500 mg PO Q6H PRN (Reason: fever or pain) Qty: 14 0RF cephalexin 500 mg capsule 500 mg PO Q6H 7 Days Qty: 28 0RF bupropion HCl 150 mg tablet extended release 24 hr 150 mg PO QAM buprenorphine-naloxone 8-2 mg film 10 mg sublingual DAILY diclofenac sodium [Voltaren Arthritis Pain] 1 % gel 4 g topical QID 30 Days Qty: 100 0RF Rx Instructions: apply to single knee, ankle, foot; for foot includes sole/toes/top of foot budesonide-formoterol [Symbicort] 160-4.5 mcg/actuation HFA aerosol inhaler 2 puff inhalation BID 30 Days Qty: 10.2 11RF docusate sodium 100 mg capsule 100 mg PO BID mirtazapine 15 mg tablet 15 mg PO BEDTIME calcium polycarbophil [Fiber Laxative (ca polycarbo)] 625 mg tablet 1,250 mg PO DAILY 30 Days Qty: 60 3RF duloxetine 60 mg capsule,delayed release(DR/EC) 60 mg PO DAILY loratadine 10 mg tablet 10 mg PO DAILY gabapentin 100 mg capsule 200 mg PO BEDTIME 30 Days Qty: 60 6RF sertraline 25 mg tablet 25 mg PO DAILY hydroxyzine HCl 25 mg tablet 25 mg PO BID docusate sodium [Colace] 100 mg capsule 100 mg PO BID Qty: 90 2RF Discharge Date/Time: 10/11/24 20:40 Print Language: Urdu
[2024-10-11 15:36] LABS: MANUAL DIFF FLAG NO
[2024-10-11 15:38] LABS: Basophils Absolute Auto 0.1 X10*3/uL (0.0-0.2); Basophils Percent Auto 1.3 % (0-2); Eosinophils Absolute Auto 0.1 X10*3/uL (0.0-0.4); Eosinophils Percent Auto 2.6 % (0-4); Hematocrit 42.5 % (42.0-52.0); Hemoglobin 14.6 g/dl (14.0-18.0); Imm Gran Abs Auto 0.01 X10*3/uL (0.00-0.03); Imm Gran Pct Auto 0.2 % (0.0-0.4); Lymphocytes Percent Auto 36.2 % (20-40); Mean Corpuscular HGB Conc 34.4 g/dl (31.0-36.0); Mean Corpuscular Hemoglobin 29.3 pg (27.0-33.0); Mean Corpuscular Volume 85.2 fL (80.0-98.0); Mean Platelet Volume 9.1 fL (9.4-12.4); Monocytes Absolute Auto 0.3 X10*3/uL (0.1-1.2); Monocytes Percent Auto 5.5 % (2-11); Neutrophils Percent Auto 54.2 % (45-73); Platelet Count 208 X10*3/uL (160-400); Red Blood Count 4.99 X10*6/uL (4.60-5.80); Red Cell Distribution Width 11.9 % (11.0-16.0); White Blood Count 5.5 X10*3/uL (4.8-10.8)
[2024-10-11 15:43] LABS: Prothrombin Time 11.6 SEC (10.9-12.4)
[2024-10-11 15:57] LABS: Alanine Aminotransferase 117 U/L (0-40); Albumin Level 4.1 g/dL (3.5-5.0); Anion Gap 12 (12-20); Aspartate Amino Transferase 61 U/L (5-37); Bilirubin Total 0.5 mg/dL (0.0-1.0); Blood Urea Nitrogen 13 mg/dL (9-16); Calcium 9.2 mg/dL (8.4-10.2); Carbon Dioxide 25 mmol/L (22-29); Chloride 108 mmol/L (96-108); Creatinine Clr Calc Pharmacy 104.1; Estimated Glomerular Filt Rate > 60; Glucose Random 111 mg/dL (60-115); Magnesium 2.2 mg/dL (1.6-2.6); Potassium 4.1 mmol/L (3.3-5.1); Sodium 141 mmol/L (135-145); Total Protein 7.9 g/dL (6.5-8.0)
[2024-10-11 16:00] LABS: Troponin-I High Sensitivity 7.2 ng/L (<3.5-35.0)
[2024-10-11 16:15] LABS: Influenza A PCR NEGATIVE (Negative); Influenza B PCR NEGATIVE (Negative); Resp Syncy Virus RNA Qual PCR NEGATIVE (Negative); SARS COV2 PCR INHOUSE NEGATIVE (Negative)
[2024-10-11 16:31] LABS: Alkaline Phosphatase 72 U/L (39-117)
[2024-10-11 16:35] VITALS: BP 134/88; PULSE 67; RESP 20; TEMP 36.8; O2SAT 98
[2024-10-11 19:55] LABS: Troponin-I High Sensitivity 7.4 ng/L (<3.5-35.0)
[2024-10-11 20:44] VITALS: BP 134/88; PULSE 67; RESP 20; TEMP 36.8; O2SAT 98
== END 2024-10-11 20:40 | disposition home or self-care (01) ==
PROVIDERS: Physician Assistant Medical; Emergency Provider Emergency Medicine
DX: R07.9 Chest pain, unspecified (principal); R00.2 Palpitations; Z03.818 Encounter for observation for suspected exposure to other biological agents ruled out
CPT/HCPCS: 0241U; 36415; 71046; 80053; 83735; 84484; 85025; 85610; 93005; 99283

== ENCOUNTER → 2024-10-11 14:15 | Outpatient (BNV) | payer OTHER, SELFPAY | PROVIDERS: Visit Provider Internal Medicine Cardiovascular Disease | DX: M79.603 Pain in arm, unspecified (principal) | CPT/HCPCS: 93010 ==

== ENCOUNTER → 2024-10-11 14:36 | Outpatient (BNV) | payer OTHER, SELFPAY | PROVIDERS: Visit Provider Radiology Diagnostic Radiology | DX: R07.9 Chest pain, unspecified (principal) | CPT/HCPCS: 71046 ==

== ENCOUNTER → 2024-10-13 11:03 | Outpatient (AMB) | payer OTHER, SELFPAY ==
--- NOTE | 2024-10-13 11:07 | MHC.OFFVIS ---
Vital Signs 10/13/24 11:07 Height 5 ft 6 in Weight 173 lb 1.006 oz BMI 27.9 BP 122/68 Blood Pressure Location Lt brachial Position Sitting Pulse 68 Pulse Source Pulse Oximeter Pulse Oximetry (%) 98 Oxygen Delivery Method Room Air Intake Visit Reasons: dyspnea Allergies shellfish derived Allergy (Intermediate, Verified 10/13/24 11:10) Rash HPI Comments Details: The patient is a 44-year-old gentleman previously healthy who apparently was in her usual state health until back in September when he has developed COVID. The COVID infection was not very severe. Subsequently after that he has had some odd sensations in his substernal area and chest area. Feels like he has episodic shortness of breath with cough and palpitations. he has been evaluated multiple times in the ER. He did have a CT scan of the chest of 1 point in the beginning April of this year. Ruled out pulmonary emboli. The patient did have just a small amount of emphysema but otherwise no other significant findings noted. His blood work all has been pretty reassuring as well. He did have a cardiac workup including a stress test and an echo without any significant abnormalities. Yet his symptoms are severe enough for him to go to the ER for medical advice because he feels like he is going . he was given a short-acting beta agonist at 1 point but it only resulting worsening palpitations and tremulousness so therefore he stop it. 06/12/2022 the patient is here for pulmonary follow-up visit. He continues to have symptoms of dyspnea on exertion. He did try the Flovent although he did not see any significant improvement. Will go ahead and switch over to Symbicort. I am hopeful that does not cause much tremulousness or palpitations. The patient 1 puff at a time. in the meantime the patient also complains of significant nasal congestion. In part this is making it difficult for him to breathe. I do believe that a big component of his shortness breath is likely from upper airway obstruction issues. He did undergo a CT scan of the sinuses demonstrating with the septum with some other chronic changes. Will go ahead and place the patient on Sudafed the hope the tolerated and also nasal therapy. Wound time also put in a referral in for ENT 1 to further evaluate his deviated septum. Patient also has been having daytime drowsiness. His Varina score is elevated 07/30. Did undergo home sleep study which we personally reviewed in the office demonstrating no evidence of any sleep apnea. Explained to the patient that the test is not 100%. If the patient continues symptomatic we can always consider in-lab study. 12/17/2022 the patient is here for a pulmonary follow-up visit. Overall he is doing better from a respiratory status. He is responding well to the Symbicort. He has not followed up with ENT. She does use his nasal therapies as needed seems to be doing a little better as well. In addition to that she is complaining of chest discomfort. Bilateral primarily closer to the armpit area. He went to the ER twice for. [place] to be musculoskeletal. He was given ibuprofen. I did reassure him that it seems to be likely due to a muscle strain while trying to move a heavy object. The patient did have a chest x-ray which I personally reviewed demonstrating no acute disease. Otherwise patient is without any other complaints. 01/10/2024 the patient is here for a pulmonary follow-up visit. Overall doing well from a respiratory status. He still has a Symbicort although he does use it as needed. Has not used it recently. He is still having episodes of and anxiety and panic attacks. The episodes still caused him to have some shortness of breath. The usually subside. He has had a Holter monitor for about 4 days. No evidence of any tachycardia or palpitations. Or arrhythmias. Although she did have a reaction to the tape and caused him to have significant skin issues for some time. He has not interested in having another 1 or considering an event monitor. The patient does not have any recent imaging studies. We did talk about the methacholine challenge. He did not have it. At this point he has a clinical diagnosis of asthma. It would have to be confirmed with a methacholine challenge. Will continue the current inhalers as prescribed. In the meantime having difficulty sleeping. He was prescribed gabapentin 100 mg. Does not seem to be enough. I will go ahead and increase it to 200 mg an hour before sleep. If is still not enough is able to take 300 mg and he can always call so I can adjust the dose. Patient follow-up in 6 months. 02/02/2024 the patient is here for a hospital follow-up visit. She had another episode where he was having significant shortness breath anxiety. He went to the ER. In the ER he had a workup including a CTA. He had multiple pulmonary nodules noted. He also had lymphadenopathy noted with some calcifications. Seems that the findings have been stable noted before though the hilar lymph nodes appear to be moderate size. Could represent a conditions such as sarcoidosis. Current the patient is doing better. He had a cardiac workup and was pretty much nondiagnostic. He will use his inhalers whenever he has an episode like the 1 he had brought him to the ER. Will go ahead and repeat the CT scan prior to his next visit in July. If his lymph nodes are still elevated which probably will be will talk about diagnostic interventions to further address the airways. 07/14/2024 the patient is here for a pulmonary follow-up visit. The patient overall is doing well from a respiratory status. He has other non pulmonary complaints including neck pain and back pain and abdominal discomfort. The patient does have issues with nasal congestion as he does have a deviated septum. But overall at baseline. He did undergo a CT scan of the chest that we personally reviewed in the office. Has not been officially read. He still has some small lymph nodes in the AP window but otherwise no other significant findings on the CT scan which is reassuring. No additional imaging studies warranted. He also did have a endoscopy and colonoscopy. Demonstrating some esophagitis and also having some colitis. The patient has been on naproxen. I did advise him not to use the naproxen is that will continue to affect his GI tract. He will continue to work on lifestyle changes. Will follow-up in a year. If he has any issues prior to that he will call for an earlier assessment. 10/13/2024 the patient is here for a pulmonary follow-up visit. He continues to be very symptomatic with shortness breath and chest tightness and some chest heaviness. Sometimes hard for him to be able to take a full breath in because it was uncomfortable. He has a hard time explaining his symptoms are describing the. He has gone to the ER few times already because the chest heaviness is concerning having heart attack. Last time he had a chest x-ray 10/11/2024 and I did look at the x-ray myself. I did visualize some slight haziness to the right hemithorax could be some pneumonitis. In addition to that although he has not been smoking he started vaping. Explained to him that this can result inflammation of the lungs. The patient also has a cardiology evaluation and I believe is scheduled for a CT scan of the coronary arteries in coming up. He does have underlying pulmonary nodules in his last CT scan was back in 06/25/2024. Will see if we see enough in the CT scan of the coronary arteries as his current provide some lung windows. If we need any more imaging we can always order the CT scan again. We are going to try him on is course of prednisone to see if this alleviates some of the information the lungs he is going to quit the vaping and smoking and subsequently also will try him on Trelegy instead of Symbicort to see if this provides some relief. 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 Mother No problems noted. Paternal Aunt Lung cancer Social History (Updated 10/13/24 @ 11:09 by Harper Brownlee CMA) Alcohol intake: never Patient Tobacco Use Status: Former Tobacco user Tobacco use type: Cigarette Years Smoked: 23 Years e-Cigarette/Vaping Use: Currently Using Current occupational status: disabled Review of Systems Const Reports daytime sleepiness, Reports difficulty sleeping and Denies fever(s) Eyes Denies loss of vision ENT Denies dizziness, Denies hearing loss, Reports nasal congestion and Reports nasal discharge Card Reports chest pain, Denies claudication, Denies leg edema, Denies lightheadedness, Reports palpitations, Reports dyspnea, Reports dyspnea on exertion, Denies orthopnea and Denies other (Loss of consciousness) Resp Denies excessive phlegm production, Reports dyspnea and Reports dyspnea on exertion GI Denies abdominal pain, Denies hematochezia, Denies change in bowel habits, Denies nausea and Denies vomiting Denies dysuria and Denies urinary frequency Musc Reports myalgias, Denies arthralgias, Denies muscle weakness and Denies numbness Skin/Breast Denies nail changes and Denies rash Neuro Denies Abnormal speech present, Denies dizziness, Denies loss of vision, Denies memory loss and Denies numbness Psych Reports anxiety, Denies depression and Denies memory loss Endo Reports palpitations Thor/Lymph Denies easy bruising and Denies other (Anemia) Physical Exam Vital Signs: Last Vital Signs Pulse 68 10/13/24 11:07 BP 122/68 10/13/24 11:07 Pulse Ox 98 10/13/24 11:07 Oxygen Delivery Method Room Air 10/13/24 11:07 BMI result Body Mass Index 27.9 Const General: comfortable and no acute distress Orientation/consciousness: patient oriented x3 HEENT Other: Unremarkable Head: Yes normal to inspection Neck Neck: Yes normal visual inspection Chest Chest palpation & inspection: normal inspection of the chest Resp Effort & Inspection: normal respiratory effort Auscultation: clear to auscultation bilaterally Cardio Heart sounds: S1 normal heart sound present, S2 normal heart sound present, no gallops, no murmurs and no rubs GI Palpation (GI): Soft to palpation Back/Spine/Pelvis Other: unremarkable Skin General skin exam: no rashes or lesions noted Neuro General: patient oriented x3 Speech: No Abnormal speech present Extrem General: Yes normal to inspection Psych Mental Status: mental status grossly normal Assessment & Plan Assessment & Plan (1) SOB (shortness of breath): Code(s): R06.02 - Shortness of breath Category: Medical (2) Deviated nasal bone: Code(s): J34.2 - Deviated nasal septum Category: Medical (3) Sleep disturbance: Code(s): G47.9 - Sleep disorder, unspecified Category: Medical (4) Pulmonary nodule: Code(s): R91.1 - Solitary pulmonary nodule Category: Medical (5) Hilar lymphadenopathy: Code(s): R59.0 - Localized enlarged lymph nodes Category: Medical (6) 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, unspecified Category: Medical Plan start Trelegy 200 NAWAF as needed start Prednisone taper continue Zyrtec gabapentin 200mg QHD start pulmonary rehab (could not complete PFTs) stop vaping F/U 4 months Orders: Orders Pulmonary Rehab Today U09.9 - Post COVID-19 condition, unspecified Medications: New jrgktapcwpa-gqqcaiyaf-khxihtcw 200-62.5-25 mcg (Trelegy Ellipta) 1 inh inhalation DAILY 30 days 60 ea 12RF prednisone PO daily; Take 2 tabs daily x 5 days, then 1 tablet daily x 5 days 10 days 15 tabs 0RF Discontinued budesonide-formoterol 160-4.5 mcg/actuation (Symbicort) Discontinued Reason: Doctor's Order 2 puffs inhalation BID 30 days 10.2 grams 11RF J44.9 - Chronic obstructive pulmonary disease, unspecified Coding Level of Care Code Est Pt Level 4 (56217) Complex EM visit Add On G2211 Diagnoses SOB (shortness of breath) R06.02 Deviated nasal bone J34.2 Sleep disturbance G47.9 Pulmonary nodule R91.1 Hilar lymphadenopathy R59.0 Mimb-RCAVC-[id number] syndrome U09.9 Time Spent (min) 17
== END | disposition home or self-care (01) ==
PROVIDERS: PCP Internal Medicine; Visit Provider Hospitalist
DX: R06.02 Shortness of breath (principal); J34.2 Deviated nasal septum; G47.9 Sleep disorder, unspecified; R91.1 Solitary pulmonary nodule; R59.0 Localized enlarged lymph nodes; U09.9 Post COVID-19 condition, unspecified
CPT/HCPCS: 99214; G2211

== ENCOUNTER → 2024-10-13 11:03 | Outpatient (BNVA) | payer OTHER, SELFPAY | PROVIDERS: PCP Internal Medicine; Visit Provider Hospitalist | DX: J34.2 Deviated nasal septum (principal); R06.00 Dyspnea, unspecified; G47.9 Sleep disorder, unspecified; R91.1 Solitary pulmonary nodule; R59.0 Localized enlarged lymph nodes; U09.9 Post COVID-19 condition, unspecified | CPT/HCPCS: 99212 ==

== ENCOUNTER 2024-10-26 03:23 | Emergency (ER) | payer OTHER, SELFPAY ==
--- NOTE | 2024-10-26 | ECG_ITS ---
Test Reason : chest pain Blood Pressure : */* mmHG Vent. Rate : 65 BPM Atrial Rate : 65 BPM P-R Int : 128 ms QRS Dur : 90 ms QT Int : 416 ms P-R-T Axes : 53 50 29 degrees QTcB Int : 432 ms Normal sinus rhythm Normal ECG When compared with ECG of 11-Oct-2024 14:28, No significant change was found Referred By: Generic ED Physician Electronically Signed By: MINI HERNANDEZ
--- NOTE | ~2024-10-26 | XR_ITS ---
CLINICAL HISTORY: chest pain, cough 2 view chest x-ray Comparison: CR/SR - XR CHEST 2V - 10/11/24 14:49 EST Findings: Normal size heart. No consolidation, pleural effusion or pneumothorax. No acute fracture. IMPRESSION: 1. No acute findings. This document has been electronically signed by: Margarita Deluca MD on 10/26/2024 04:15:36
[2024-10-26 03:34] VITALS: BP 121/74; PULSE 66; RESP 20; TEMP 36.5; O2SAT 95; BMI 27.8
[2024-10-26 03:59] LABS: Basophils Absolute Auto 0.1 X10*3/uL (0.0-0.2); Basophils Percent Auto 0.9 % (0-2); Eosinophils Absolute Auto 0.2 X10*3/uL (0.0-0.4); Eosinophils Percent Auto 3.7 % (0-4); Hematocrit 40.6 % (42.0-52.0); Hemoglobin 14.2 g/dl (14.0-18.0); Imm Gran Abs Auto 0.01 X10*3/uL (0.00-0.03); Imm Gran Pct Auto 0.2 % (0.0-0.4); Lymphocytes Absolute Auto 1.9 X10*3/uL (1.2-4.9); Lymphocytes Percent Auto 34.7 % (20-40); MANUAL DIFF FLAG NO; Mean Corpuscular Hemoglobin 29.7 pg (27.0-33.0); Mean Corpuscular Volume 84.9 fL (80.0-98.0); Monocytes Absolute Auto 0.7 X10*3/uL (0.1-1.2); Neutrophils Absolute Auto 2.6 x10*3/uL (2.0-8.3); Neutrophils Percent Auto 48.5 % (45-73); Platelet Count 158 X10*3/uL (160-400); Red Blood Count 4.78 X10*6/uL (4.60-5.80); Red Cell Distribution Width 11.9 % (11.0-16.0); White Blood Count 5.4 X10*3/uL (4.8-10.8)
[2024-10-26 04:19] LABS: Alanine Aminotransferase 82 U/L (0-40); Albumin Level 3.8 g/dL (3.5-5.0); Anion Gap 11 (12-20); Aspartate Amino Transferase 42 U/L (5-37); Bilirubin Total 0.7 mg/dL (0.0-1.0); Blood Urea Nitrogen 11 mg/dL (9-16); Calcium 9.1 mg/dL (8.4-10.2); Carbon Dioxide 27 mmol/L (22-29); Chloride 108 mmol/L (96-108); Creatinine Clr Calc Pharmacy 108.9; Estimated Glomerular Filt Rate > 60; Glucose Random 114 mg/dL (60-115); Potassium 4.1 mmol/L (3.3-5.1); Sodium 142 mmol/L (135-145); Total Protein 7.3 g/dL (6.5-8.0)
[2024-10-26 04:20] LABS: Troponin-I High Sensitivity 4.9 ng/L (<3.5-35.0)
[2024-10-26 04:27] LABS: Alkaline Phosphatase 63 U/L (39-117)
[2024-10-26 04:36] LABS: Influenza A PCR NEGATIVE (Negative); Influenza B PCR NEGATIVE (Negative); Resp Syncy Virus RNA Qual PCR NEGATIVE (Negative); SARS COV2 PCR INHOUSE NEGATIVE (Negative)
== END 2024-10-26 08:10 | disposition left against medical advice (07) ==
PROVIDERS: Emergency Provider Emergency Medicine Emergency Medical Services; PCP Internal Medicine
DX: R07.89 Other chest pain (principal); Z79.899 Other long term (current) drug therapy; Z03.818 Encounter for observation for suspected exposure to other biological agents ruled out
CPT/HCPCS: 0241U; 71046; 80053; 84484; 85025; 93005; 99281; 99283

== ENCOUNTER → 2024-10-26 03:30 | Outpatient (BNV) | payer OTHER, SELFPAY | PROVIDERS: PCP Internal Medicine; Visit Provider Specialist | DX: R07.9 Chest pain, unspecified (principal); R05.9 Cough, unspecified | CPT/HCPCS: 71046 ==

== ENCOUNTER → 2024-10-26 03:31 | Outpatient (BNV) | payer OTHER, SELFPAY | PROVIDERS: Emergency Provider Emergency Medicine Emergency Medical Services; PCP Internal Medicine; Visit Provider Internal Medicine | DX: R07.9 Chest pain, unspecified (principal) | CPT/HCPCS: 93010 ==

== ENCOUNTER 2024-11-06 14:32 | Outpatient (AMB) | payer OTHER, SELFPAY ==
[2024-11-06 14:49] VITALS: BP 142/80; PULSE 83; BMI 27.8
--- NOTE | 2024-11-06 14:49 | A.OFFVIS_ITS ---
Vital Signs 11/06/24 14:49 Height 5 ft 6 in Weight 172 lb BMI 27.8 BP 142/80 H Blood Pressure Location Lt brachial Position Sitting Pulse 83 Pulse Source Pulse Oximeter Intake Visit Reasons: [facility] ED f/u [employer] Required: No Allergies shellfish derived Allergy (Intermediate, Verified 11/06/24 14:54) Rash Medication List - Last Reconciled 11/06/24 by CASSANDRA Travis acetaminophen (Tylenol Extra Strength) 500 mg PO Q6H PRN buprenorphine-naloxone 8-2 mg 10 mg sublingual DAILY bupropion HCl XL 150 mg PO QAM calcium polycarbophil (Fiber Laxative (calcium polycarbophil)) 1,250 mg (2 x 625 mg) PO DAILY 30 days docusate sodium (Colace) 100 mg PO BID duloxetine 60 mg PO DAILY vmtianiyucy-wewidcjgc-irwrqtxg 200-62.5-25 mcg (Trelegy Ellipta) 1 inh inhalation DAILY 30 days gabapentin 200 mg (2 x 100 mg) PO BEDTIME 30 days hydroxyzine HCl 25 mg PO BID lactulose 20 grams (30 mL) PO DAILY PRN mesalamine ER 1.5 grams (4 x 0.375 gram) PO DAILY mirtazapine 15 mg PO BEDTIME omeprazole 20 mg PO BID 90 days prednisone PO daily; Take 2 tabs daily x 5 days, then 1 tablet daily x 5 days 10 days sertraline 25 mg PO DAILY sucralfate 10 mL PO QID sucralfate 1 g PO BEDTIME testosterone 4 pumps topical DAILY 30 days HPI HPI [facility] ED f/u: Details: Cody is a 43-year-old male no known cardiac history, with fibromyalgia, heart palpitations and recurrent reports of chest discomfort who has been seen in the [facility] emergency room 3 times in the last few months with chest discomfort and ruled out for ACS. On last visit a CTA of the coronary arteries was ordered and he now presents for follow-up. Today he reports that he still gets an intermittent poking sensation in his anterior chest which causes him much concern and anxiety. He has had this symptom when at rest and during activity. He does not feel it is getting worse in severity or frequency. He will notice that his heart is going fast when he lays down at night. He admits to drinking coffee at times at 2200 and 2300. No lightheadedness, presyncope, syncope, falls. No shortness of breath, PND, orthopnea or edema. He is on disability due to visual issues and prior corneal transplant also fibromyalgia. Tries to remain active, no routine exercise. [facility] Medical History Hypogonadism, testicular Hilar lymphadenopathy Fibromyalgia GERD (gastroesophageal reflux disease) Scrotal pain Rhinosinusitis Deviated nasal bone Caqh-NFZKZ-12 syndrome COVID-19 Anxiety Surgical History History of esophagogastroduodenoscopy (EGD) Hx of colonoscopy History of cornea transplant Family History Father No problems noted. Mother No problems noted. Paternal Aunt Lung cancer Social History Alcohol intake: never Patient Tobacco Use Status: Former Tobacco user Tobacco use type: Cigarette Years Smoked: 23 Years e-Cigarette/Vaping Use: Currently Using Current occupational status: disabled Review of Systems Const All systems reviewed & are unremarkable except as noted in HPI and below ENT Denies dizziness Card Denies chest pain, Denies chest pain at rest, Denies chest pain with activity, Denies rapid heart rate, Denies pedal edema, Denies edema, Denies leg edema, Denies lightheadedness, Denies palpitations, Denies dyspnea, Denies dyspnea on exertion and Denies orthopnea Resp Denies cough, Denies dyspnea and Denies dyspnea on exertion GI Denies hematochezia and Denies change in stool character Musc Denies abnormal gait, Denies limited range of motion, Reports muscle cramps, Denies muscle weakness, Denies numbness, Denies radiating pain into limb, Denies stiffness and Denies tingling Neuro Denies abnormal gait, Denies dizziness, Denies numbness and Denies tingling Endo Denies palpitations Physical Exam Vital Signs: Last Vital Signs Pulse 83 11/06/24 14:49 BP 142/80 H 11/06/24 14:49 BMI result Body Mass Index 27.8 Const General: cooperative, healthy appearing, comfortable and no acute distress Orientation/consciousness: patient oriented x3 Resp Effort & Inspection: normal respiratory effort Auscultation: clear to auscultation bilaterally, no rales, no rhonchi and no wheezes Cardio Rate: regular rate Rhythm: regular rhythm Heart sounds: S1 normal heart sound present, S2 normal heart sound present, no gallops, no murmurs and no rubs Neuro General: patient oriented x3 Extrem General: Yes normal to inspection, No no pedal edema and No calf tenderness Psych Appearance: grossly normal Mental Status: mental status grossly normal Speech and movement: Normal speech and movement present Assessment & Plan Assessment & Plan (1) Chest discomfort: Comment: coracoid process tenderness likely to strain Code(s): R07.89 - Other chest pain Category: Medical Plan: History of atypical chest discomfort with prior cardiac evaluation with no cardiac findings. Last echo done on 02/18/2022 was normal study. Stress echocardiogram was done on 05/21/2023 with exercise 9 minutes 45 seconds without EKG changes or echo evidence of ischemia. He has a low cardiac risk profile. He continued to report symptoms and had recurrent ER visits for chest discomfort, ruling out for ACS. He underwent a CTA of the coronary arteries on 11/24/2024 showing punctate calcified plaque in the proximal RCA producing no measurable stenosis, otherwise normal coronary CTA. Incidental finding of probable mediastinal lymph node. He tells me that his PCP already reviewed this report and has scheduled him for a follow-up CT scan. Test results reviewed with him. Offered reassurance that his symptoms are noncardiac in nature. Cardiology follow-up p.r.n.. (2) Anxiety: Comment: Follow-up PCP Code(s): F41.9 - Anxiety disorder, unspecified Category: Medical Plan: Patient reports issues with chronic anxiety. He does not believe his chest symptom is brought on by anxiety. Instructed to further discuss with his PCP (3) Heart palpitations: Code(s): R00.2 - Palpitations Category: Medical Plan: Reports of heart palpitations like his heart is beating fast. Symptom can coincide with his anxiety symptoms. Holter monitor done on 04/27/2023 for 4.5 days showed sinus rhythm with average heart rate 71 beats per minute rare ectopy, symptoms correlated with sinus rhythm. A Holter monitor was done on 02/18/2022 for 2 days showing sinus rhythm average heart rate 73 beats per minute, rare ectopy, one 8 beat SVT noted. At this time he is not describing symptoms that suggest issues with recurrent SVT. Discussed avoidance of stimulants, do not drink caffeinated beverages in the evening, increasing physical activity as tolerated. Plan Time spent on chart review, documentation, interview and assessment. Coding Level of Care Code Est Pt Level 3 (75597) Complex EM visit Add On G2211 Diagnoses Chest discomfort R07.89 Anxiety F41.9 Heart palpitations R00.2 Time Spent (min) 24
--- OUTSIDE RECORDS SUMMARY | 2024-11-06 17:20 | XMS_ITS | Encounter Summary ---
Author Organization [employer] Address [address] [place] [address] Care Team Providers Care Gate Supervisor Name Role Phone Rik Bearden MD Primary Care Provide r Encounter Details Date Type Department Care Team (Latest Contact Info) Description 11/03/2024 Travel Social History Tobacco Use Types Packs/Day Years Used Date Smoking Tobacco: Former Cigarettes Passive Smoke Exposure: Past Smokeless Tobacco: Current Comments:Pt doesn't smoke ci garettes but he uses the vapes Alcohol Use Standard Drinks/Week Comments Never 0 (1 standard drink = 0.6 oz pur e alcohol) Depression Answer Date Recorded Patient Health Questionnaire-9 Score 14 08/24/2024 Patient Health Questionnaire-9 Score 14 08/24/2024 Last PHQ-9: Questionnaire Data Not on file 1 10/25/2023 Housing Stability Answer Date Recorded What is your housing situation today? I have christiano العراقي 11/23/[address] you li ve. Do you have problems with any of the following? None of the above 11/23/2023 Food Insecurity Answer Date Recorded Within the past 12 months, y ou worried that your food would run out before you got money to buy more: Never True 11/23/2023 Within the past 12 months,th e food you bought just didn't last and you didn't have enough money to get more: Never True Transportation Answer Date Recorded In the past 12 months, has l ack of transportation kept you from medical appts, meetings, work or from getting things needed for daily living? No 11/23/2023 Utilities Answer Date Recorded In the past 12 months, has t he electric, gas, oil or water company threatened to shut off services in your home? No 11/23/2023 Depression Answer Date Recorded Patient Health Questionnaire-2 Score 6 08/24/2024 Internet Access Answer Date Recorded Internet Access Q1 Yes 05/08/2024 Internet Access Q2 Not on file 05/08/2024 Sex and Gender Information Value Date Recorded Sex Assigned at Male 07/06/2022 10:18 AM EDT Legal Sex Male 10:18 AM EDT Gender Identity Male 07/06/2022 10:18 AM EDT Sexual Orientation Straight 07/06/2022 10 :18 AM EDT documented as of this encounter Plan of Treatment Upcoming Encounters Date Type Department Care Team (Late st Contact Info) Description 12/01/2024 10:00 AM EDT Office Visit [facility] [address] [place] [id number] Merritt Germain MD [address] [place] [phone] 01/09/2025 10:30 AM EDT Office Visit [facility] [address] [place] [id number] Rik Bearden MD [address] [place] [phone] documented as of this encounter Visit Diagnoses Not on filedocumented in this encounter Additional Health Concerns Assessment Noted Time PHQ-9 Depression Total Score: 14 024 1:11 PM EST documented as of this encounter Care Teams Gate Supervisor Relationship Specialty Start Date End Date Rik Bearden MD [address] [place] [address] PCP - General Internal Medicine 06/18/15 documented as of this encounter
--- OUTSIDE RECORDS SUMMARY | 2024-11-06 17:20 | XMS_ITS | Encounter Summary ---
Author Organization [employer] Address [address] [facility] [address] 7[address] [place] [address] Care Team Providers Care Transport Manager Name Role Phone Rik Bearden MD Primary Care Provide r Reason for Visit * Reason Comments Med Refill Encounter Details Date Type Department Care Team ([facility] st Contact Info) Description 03/26/2023 Refill [facility] [address] [place] [address] Rik Bearden MD 230 [place], [place] [phone] Heartburn Social History Tobacco Use Types Packs/Day Years Used Date Smoking Tobacco: Former Cigarettes Passive Smoke Exposure: Never Smokeless Tobacco: Current Comments:Pt doesn't smoke ci garettes but he uses the vapes Alcohol Use Standard Drinks/Week Comments Never 0 (1 standard drink = 0.6 oz pur e alcohol) Depression Answer Date Recorded Patient Health Questionnaire-2 Score 2 09/08/2022 Sex and Gender Information Value Date Recorded Sex Assigned at Male 07/06/2022 10:18 AM EDT Legal Sex Male 10:18 AM EDT Gender Identity Male 07/06/2022 10:18 AM EDT Sexual Orientation Straight 07/06/2022 10 :18 AM EDT COVID-19 Exposure Response Date Recorded In the last 10 days, have yo u been in contact with someone who was confirmed or suspected to have Coronavirus/COVID-19? No / Unsure 03/05/2023 10:27 AM EDT documented as of this encounter Plan of Treatment Upcoming Encounters Date Type Department Care Team (Late st Contact Info) Description 12/01/2024 10:00 AM EDT Office Visit [facility] [address] Merritt Germain MD [address] [place] [address] 01/09/2025 10:30 AM EDT Office Visit [facility] [address] [place] [address] [place] [address] documented as of this encounter Visit Diagnoses Diagnosis Heartburn documented in this encounter Care Teams Transport Manager Relationship Specialty Start Date End Date [place] [address] PCP - General Internal Medicine 06/18/15 documented as of this encounter
--- OUTSIDE RECORDS SUMMARY | 2024-11-06 17:20 | XMS_ITS | Encounter Summary ---
Author Organization [employer] Address [address] [facility] [facility] [address] 7t [place] [address] Care Team Providers Care Radial Arm Saw Operator Name Role Phone Rik Bearden MD Primary Care Provide r Reason for Visit * Reason Comments OBAT Encounter Details Date Type Department Care Team (Latest Contact Info) Description 11/03/2024 10:15 AM EST Office Visit [facility] [address] [place] [address] Merritt Germain MD 230 [place] [address] Uncomplicated opioid dependence (CMS/HCC) (Primary Dx); Vaping nicotine dependence, tobacco product Social History Tobacco Use Types Packs/Day Years [...] the past 12 months, has t he [employer], gas, oil or water [employer] threatened to shut off services in your [...] Description 12/01/2024 10:00 AM EDT Office Visit [facility] [address] [place] [address] Merritt Germain MD [address] [place] [address] 01/09/2025 10:30 AM EDT Office Visit [facility] [address] [place] [address] Rik Bearden MD [address] [place] [phone] documented as of this encounter Procedures Procedure Name Priority Date/Time Associated Diagnosis Comments POCT HECTOR-14 URINE DRUG SCREEN Routine 11/03/2024 9:17 AM EST Uncomplicated opioid dependence (CMS/HCC) documented in this encounter Results * POCT HECTOR-14 Urine Drug Screen (11/03/2024 9:17 AM EST) THC Negative Cocaine Screen, Urine Negative Opiate Screen, Urine Negative Methamphetamine Screen Urine Negative Amphetamine Screen, Urine Negative Benzodiazepines Screen, Urine Negative Barbiturate Screen, Urine Negative Methadone Screen, Urine Negative Buprenophine Screen, Urine Positive TCA, Urine Negative MDMA Urine Negative ng/mL Oxycodone Screen, Urine Negative Phencyclidine (PCP), Urine Negative Propoxyphene, Urine Negative Fentanyl, Urine Negative Urine Urine specimen obtained by clean catch procedure / Unknown 11/03/2024 9:17 AM EST us Merritt Germain MD POINT OF CARE TEST ENTER/EDIT ORDERABLES Final Result documented in this encounter Visit Diagnoses Diagnosis Uncomplicated opioid dependence (CMS/HCC)- Primary Vaping nicotine dependence, tobacco product documented in this encounter Additional Health Concerns Assessment Noted Time PHQ-9 Depression Total Score: 14 024 1:11 PM EST documented as of this encounter Care Teams Radial Arm Saw Operator Relationship Specialty Start Date End Date Rik Bearden MD [address] [place] [phone] PCP - General Internal Medicine 06/18/15 documented as of this encounter
--- OUTSIDE RECORDS SUMMARY | 2024-11-06 17:20 | XMS_ITS | Clinical Summary ---
Author Organization [facility] [place] [address] Care Team Providers Care Metal Fabricator Apprentice Name Role Phone Unavailable Primary Care Provider Unavailabl e Social History Tobacco Use Types Packs/Day Years Used Date Smoking Tobacco: Never Assessed Sex and Gender Information Value Date Recorded Sex Assigned at Not on file Legal Sex Male 2:28 AM EST Gender Identity Not on file Sexual Orientation Not on file Plan of Treatment Health Maintenance Due Date Last Done Comments DTaP,Tdap,and Td Vaccines (1 - Tdap) 1999 Hepatitis B Vaccines (1 of 3 - 19+ 3-dose series) 1999 Cholesterol Screening (Lipid Panel) 08/09/2022 Depression Screening 08/09/2022 HIV Screening 08/09/2022 Hepatitis C Screening 08/09/2022 Social Influencers of Health Screening 08/09/2022 COVID-19 Vaccine ( - 2023-2 5 season) 2024 Influenza Vaccine (#1) 2024 HIB Vaccines Aged Out No longer eligi ble based on patient's age to complete this topic HPV Vaccines Aged Out No longer eligi ble based on patient's age to complete this topic Hepatitis A Vaccines Aged Out No long er eligible based on patient's age to complete this topic IPV Vaccines Aged Out No longer eligi ble based on patient's age to complete this topic MMR Vaccines Aged Out No longer eligi ble based on patient's age to complete this topic Meningococcal ACWY Vaccine Aged Out N o longer eligible based on patient's age to complete this topic Meningococcal B Vacine Aged Out No lo nger eligible based on patient's age to complete this topic Pneumococcal Vaccine: Pediat rics (0 to 5 Years) and At-Risk Patients (6 to 64 Years) Aged Out No longer eligible b ased on patient's age to complete this topic RSV Immunization Patients Un maynor 20 months Aged Out No longer eligible b ased on patient's age to complete this topic Varicella Vaccines Aged Out No longer eligible based on patient's age to complete this topic
--- OUTSIDE RECORDS SUMMARY | 2024-11-06 17:20 | XMS_ITS | Encounter Summary ---
Author Organization [employer] Address [address] [facility] [address] 7t [place] [address] Care Team Providers Care Broadcast Traffic Coordinator Name Role Phone Rik Bearden MD Primary Care Provide r Reason for Visit * Reason Comments Med Refill Encounter Details Date Type Department Care Team ([facility] st Contact Info) Description 09/19/2023 Refill [facility] 230 [place] [address] Merritt Germain MD 230 [place], [place] [phone] Uncomplicated opioid dependence (CMS/HCC) Social History Tobacco Use Types Packs/Day Years Used Date Smoking Tobacco: Former Cigarettes Passive Smoke Exposure: Never Smokeless Tobacco: Current Comments:Pt doesn't smoke ci garettes but he uses the vapes Alcohol Use Standard Drinks/Week Comments Never 0 (1 standard drink = 0.6 oz pur e alcohol) Housing Stability Answer Date Recorded What is your housing situation today? I have housing today, but I am worried about losing housing in the future 06/25/[address] you li ve. Do you have problems with any of the following? None of the above 06/25/2023 Food Insecurity Answer Date Recorded Within the past 12 months, y ou worried that your food would run out before you got money to buy more: Never True 06/25/2023 Within the past 12 months,th e food you bought just didn't last and you didn't have enough money to get more: Never True Transportation Answer Date Recorded In the past 12 months, has l ack of transportation kept you from medical appts, meetings, work or from getting things needed for daily living? No 06/25/2023 Utilities Answer Date Recorded In the past 12 months, has t he electric, gas, oil or water company threatened to shut off services in your home? No 06/25/2023 Depression Answer Date Recorded Patient Health Questionnaire-2 [...] Description 12/01/2024 10:00 AM EDT Office Visit [facility] MED[facility]INE [address] [place] [address] Merritt Germain MD [address] [place] [address] 01/09/2025 10:30 AM EDT Office Visit [facility] [address] [place] [address] Rik Bearden MD [address] [place] [address] documented as of this encounter Visit Diagnoses Diagnosis Uncomplicated opioid dependence (CMS/[facility]) documented in this encounter Care Teams Broadcast Traffic Coordinator Relationship Specialty Start Date End Date Rik Bearden MD [address] [place] [phone] PCP - General Internal Medicine 06/18/15 documented as of this encounter
--- OUTSIDE RECORDS SUMMARY | 2024-11-06 17:20 | XMS_ITS | Encounter Summary ---
Author Organization [employer] Address [address] [facility] [address] 7t [place] [address] Care Team Providers Care A/C Technician Name Role Phone Rik Bearden MD Primary Care Provide r Reason for Visit * Reason Comments Med Refill Encounter Details Date Type Department Care Team ([facility] st Contact Info) Description 06/14/2024 Refill [facility] 230 [place] [address] Merritt Germain MD 230 [place] [address] Uncomplicated opioid dependence (CMS/HCC) Social History Tobacco Use Types Packs/Day Years Used Date Smoking Tobacco: Some Days Cigarettes Passive Smoke Exposure: Current Smokeless Tobacco: Current Comments:Pt doesn't smoke ci garettes but he uses the vapes Alcohol Use Standard Drinks/Week Comments Never 0 (1 standard drink = 0.6 oz pur e alcohol) Depression Answer Date Recorded Patient Health Questionnaire-9 Score 21 02/29/2024 Patient Health Questionnaire-9 Score 21 02/29/2024 Last PHQ-9: Questionnaire Data Not on file 0 02/29/2024 Housing Stability Answer Date Recorded What is [...] Date Recorded Patient Health Questionnaire-2 Score 6 02/29/2024 Internet Access Answer Date Recorded Internet Access [...] Description 12/01/2024 10:00 AM EDT Office Visit [facility] [address] [place] [address] Merritt Germain MD [address] [place] [address] 01/09/2025 10:30 AM EDT Office Visit [facility] [address] [place] [address] Rik Bearden MD [address] [place] [address] documented as of this encounter Visit Diagnoses Diagnosis Uncomplicated opioid dependence (CMS/HCC) documented in this encounter Additional Health Concerns Assessment Noted Time PHQ-9 Depression Total Score: 21 024 2:22 PM EDT documented as of this encounter Care Teams A/C Technician Relationship Specialty Start Date End Date Rik Bearden MD [address] [place] [address] PCP - General Internal Medicine 06/18/15 documented as of this encounter
--- OUTSIDE RECORDS SUMMARY | 2024-11-06 17:20 | XMS_ITS | Encounter Summary ---
Author Organization [employer] Address [address] 7t [place] [address] Care Team Providers Care Behaviour Support Teacher Name Role Phone Rik Bearden MD Primary Care Provide r Reason for Visit * Reason Onset Date Comments Med Refill 10/27/2024 Encounter Details Date Type Department Care Team (Late st Contact Info) Description 10/27/2024 Refill [facility] 230 [place] [address] Nicole Rubio, JAMSHID Uncomplicated opioid dependence (CMS/HCC) Social History Tobacco [...] Description 12/01/2024 10:00 AM EDT Office Visit [facility] MED[facility] [address] [place] [address] Merritt Germain MD [address] [place] [phone] 01/09/2025 10:30 AM EDT Office Visit [facility] [address] [place] [address] Rik Bearden MD [address] [place] [address] documented as of this encounter Visit Diagnoses Diagnosis Uncomplicated opioid dependence (CMS/HCC) documented in this encounter Additional Health Concerns Assessment Noted Time PHQ-9 Depression Total Score: 14 024 1:11 PM EST documented as of this encounter Care Teams Behaviour Support Teacher Relationship Specialty Start Date End Date Rik Bearden MD [address] [place] [address] PCP - General Internal Medicine 06/18/15 documented as of this encounter
--- OUTSIDE RECORDS SUMMARY | 2024-11-06 17:20 | XMS_ITS | Encounter Summary ---
Author Organization [employer] Address [address] 7t [place] [address] Care Team Providers Care Casino Assistant Manager Name Role Phone Rik Bearden MD Primary Care Provide r Reason for Visit * Reason Onset Date Comments Med Refill 11/01/2023 Encounter Details Date Type Department Care Team ([facility] st Contact Info) Description 11/01/2023 Telephone [facility] 230 [place], [place] [phone] Rik Bearden MD 230 [place], [place] [phone] Med Refill Social History Tobacco Use Types Packs/Day Years [...] AM EDT documented as of this encounter Miscellaneous Notes * Telephone Encounter - Tommie Ann - 11/01/2023 4:26 PM EST TC from pt requesting medication refill. Medications needing refill : Buprenorphine HCl-Naloxone HCl (Suboxone) 8-2 MG SL film To be sent to: [facility]/pharmacy #[id number] [place] [address] documented in this encounter Plan of Treatment Upcoming Encounters Date Type Department Care Team (Late st Contact Info) Description 12/01/2024 10:00 AM EDT Office Visit [facility] [address] [place] [address] Merritt Germain MD [address] [place] [address] 01/09/2025 10:30 AM EDT Office Visit [facility] [address] [place] [address] Rik Bearden MD [address] [place] [phone] documented as of this encounter Visit Diagnoses Not on filedocumented in this encounter Care Teams Casino Assistant Manager Relationship Specialty Start Date End Date Rik Bearden MD [address] [place] [address] PCP - General Internal Medicine 06/18/15 documented as of this encounter
--- OUTSIDE RECORDS SUMMARY | 2024-11-06 17:20 | XMS_ITS | Encounter Summary ---
Author Organization [employer] Address [address] [facility] [address] 7t [place] [address] Care Team Providers Care Insurance Instructor Name Role Phone Rik Bearden MD Primary Care Provide r Reason for Visit * Reason Onset Date Comments Triage 12/28/2022 Encounter Details Date Type Department Care Team ([facility] st Contact Info) Description 12/28/2022 Telephone [facility] 230 [place] [address] Rik Bearden MD 230 [place], [place] [phone] Triage Social History Tobacco Use Types Packs/Day Years Used Date Smoking Tobacco: Former Cigarettes Passive Smoke Exposure: Past Smokeless Tobacco: Never Alcohol Use Standard Drinks/Week Comments Never 0 [...] suspected to have Coronavirus/COVID-19? No / Unsure 12/23/2022 3:17 PM EDT documented as of this encounter Miscellaneous Notes * Telephone Encounter - June Sanchez RN - 12/28/2022 2:57 PM EDT Triage call Pt reports being seen in [facility] 12/25 for pain under arm /rib area which is described as stabbing . Pt is asking for follow up with PCP. Pt also had a sore throat at time of ED visit with neg test for strep. Advised to use salt water gargle 2x/day , cough drops, warm liquids and Pt agreed.Pt agrees with disposition and home care reviewed. Apt with PCP 01/07 @ 1100am. Protocol Used: Arm Pain (Adult) Protocol-Based Disposition: See in Office or Video Visit within 2 Weeks Video visit not offered Positive Triage Question: * Mild pain (e.g., does not interfere with normal activities) and present > 7 days * All higher-acuity triage questions were negative Care Advice Discussed: * Pain Medicines * Pain Medicines - Extra Notes and Warnings * Reasons To Call Back - Moderate pain (e.g., interferes with normal activities) lasts more than 3 days - Mild pain lasts more than 7 days - Arm swelling occurs - Signs of infection occur (e.g., spreading redness, warmth, fever) - You become worse * Use a Cold Pack for Pain * Use Heat on Area After 48 Hours * Local Heat (Shower Option) * Rest * Telephone Encounter - Yesenia Isbell - 12/28/2022 1:56 PM EDT Patient calling to report ED visit on 12/25/22 at [facility]. Seen for . Patient advised will forward to team nurse for follow up. Patient still has pain around rib area (stabbing pain) and sore throat. documented in this encounter Plan of Treatment Upcoming Encounters Date Type Department Care Team (Late st Contact Info) Description 12/01/2024 10:00 AM EDT Office Visit [facility] MED[facility] [address] [place] [address] Merritt Germain MD [address] [place] [address] 01/09/2025 10:30 AM EDT Office Visit [facility] [address] [place] [address] Rik Bearden MD [address] [place] [address] documented as of this encounter Visit Diagnoses Diagnosis Uncomplicated opioid dependence (CMS/[facility]) documented in this encounter Care Teams Insurance Instructor Relationship Specialty Start Date End Date Rik Bearden MD [address] [place] [phone] PCP - General Internal Medicine 06/18/15 documented as of this encounter
--- OUTSIDE RECORDS SUMMARY | 2024-11-06 17:20 | XMS_ITS | Encounter Summary ---
Author Organization [employer] Address [address] [facility] [address] [place] [address] Care Team Providers Care Bag Bleacher Name Role Phone Rik Bearden MD Primary Care Provide r Reason for Visit * Reason Comments Med Change Request Encounter Details Date Type Department Care Team ([facility] st Contact Info) Description 08/29/2023 Refill [facility] 230 [place] [address] Sravanthi Summers ANP 230 [place] [address] Constipation, unspecified constipation type Social History Tobacco Use Types Packs/Day Years [...] Description 12/01/2024 10:00 AM EDT Office Visit [facility] [address] [place] [address] Merritt Germain MD [address] [place] [address] 01/09/2025 10:30 AM EDT Office Visit [facility] MED[facility] [address] [place] [address] Rik Bearden MD [address] [place] [address] documented as of this encounter Visit Diagnoses Diagnosis Constipation, unspecified constipation type documented in this encounter Care Teams Bag Bleacher Relationship Specialty Start Date End Date Rik Bearden MD [address] [place] [phone] PCP - General Internal Medicine 06/18/15 documented as of this encounter
--- OUTSIDE RECORDS SUMMARY | 2024-11-06 17:20 | XMS_ITS | Encounter Summary ---
Author Organization [employer] Address [address] [facility] 7t [place] [address] Care Team Providers Care Manager Collection Name Role Phone Rik Bearden MD Primary Care Provide r Reason for Visit * Reason Comments Med Refill Encounter Details Date Type Department Care Team ([facility] Contact Info) Description 05/02/2023 Refill [facility] MEDICINE 230 [place] [address] Sravanthi Summers, ANP [address] [place], [place] [phone] Constipation, unspecified constipation type Social History Tobacco [...] Upcoming Encounters Date Type Department Care Team ([facility] Contact Info) Description 12/01/2024 10:00 AM EDT Office Visit [facility] MEDICINE [address] [place] [address] Merritt Germain MD 230 [place] [address] 01/09/2025 10:30 AM EDT Office Visit [facility] MEDICINE [address] [place] [address] Rik Bearden MD [address] [place] [address] documented as of this encounter Visit Diagnoses Diagnosis Constipation, unspecified constipation type documented in this encounter Care Teams Manager Collection Relationship Specialty Start Date End Date Rik Bearden MD [address] [place] [phone] PCP - General Internal Medicine 06/18/15 documented as of this encounter
--- OUTSIDE RECORDS SUMMARY | 2024-11-06 17:20 | XMS_ITS | Encounter Summary ---
Author Organization [employer] Address [address] [place] [address] Care Team Providers Care Bobbin Disker Name Role Phone Rik eBarden MD Primary Care Provide r Encounter Details Date Type Department Care Team (Late st Contact Info) Description 10/26/2024 Orders Only GENERIC EXTERNAL DATA DEPARTMENT Provider, Generic External Data Social History Tobacco Use Types Packs/Day Years [...] Description 12/01/2024 10:00 AM EDT Office Visit [facility] [address] [place] [phone] Merritt Germain MD [address] [place] [phone] 01/09/2025 10:30 AM EDT Office Visit [facility] [address] [place] [phone] Rik Bearden MD [address] [place] [phone] documented as of this encounter Procedures Procedure Name Priority Date/Time Associated Diagnosis Comments XR CHEST 2 VIEWS Routine 10/26/2024 4:15 AM EST HIGH SENSITIVITY TROPONIN I Routine 10/26/2024 3:53 AM EST SARS COV2/INFLUENZA A/B AND RSV RNA QL NAAT Routine 10/26/2024 3:53 AM EST CBC WITH AUTO DIFFERENTIAL Routine 10/26/2024 3:53 AM EST COMPREHENSIVE METABOLIC PANEL Routine 10/26/2024 3:53 AM EST documented in this encounter Results * XR Chest 2 Views (10/26/2024 4:15 AM EST) Anatomical Region Laterality Modality Chest Radiographic Peggy ging 10/26/2024 4:15 AM EST Narrative 10/26/2024 4:16 AM EST ? [facility] ?[address] ?[place] [address] ?XRay Report ? Signed ? Patient: Cody Shepard ?MR#: [id number] ?? [id number] ? : 1980 ?Acct:[id number] ? Age/Sex: 44 / M ?ADM Date: 10/26/24 ? Loc: HO.ED ? Attending Dr: ? Ordering Physician: Generic ED Physician ?? Date of Service: 10/26/24 ?? Procedure(s): XR chest 2V ?? Accession Number(s): [id number] ? cc: Rik Flaherty MD; Generic ED Physician ? CLINICAL HISTORY: chest pain, cough ? 2 view chest x-ray ? Comparison: CR/SR - XR CHEST 2V - 10/11/24 14:49 EST ? Findings: ?? Normal size heart. ?? No consolidation, pleural effusion or pneumothorax. ?? No acute fracture. ? IMPRESSION: ?? 1. No acute findings. ? This document has been electronically signed by: Margarita Deluca MD on ?? 10/26/2024 04:15:36 ? Dictated By: ?Margarita Deluca MD ? Signed By: ?<Electronically signed by Margarita Deluca MD in OV> ? 10/26/24 0416 ? DD/ 0415 ? TD/TT: 10/26/24 0415 ? Educational Diagnostician: ? Procedure Note Caitie, Image - 10/26/[address] [address] XRay Report Signed Patient: Cody ShepardMR#: [id number] : 1980Acct:[id number] Age/Sex: 44 / MADM Date: 10/26/24 Loc: HO.ED Attending Dr: Ordering Physician: Emiliano ED Physician Date of Service: 10/26/24 Procedure(s): XR chest 2V Accession Number(s): [id number] cc: Rik Flaherty MD; Generic ED Physician CLINICAL HISTORY: chest pain, cough 2 view chest x-ray Comparison: CR/SR - XR CHEST 2V - 10/11/24 14:49 EST Findings: Normal size heart. No consolidation, pleural effusion or pneumothorax. No acute fracture. IMPRESSION: 1. No acute findings. This document has been electronically signed by: Margarita Deluca MD on 10/26/2024 04:15:36 Dictated By: Margarita Deluca MD Signed By: <Electronically signed by Margarita Deluca MD in OV> 10/26/24415 DD/ 4 TD/TT: 10/26/24414 Educational Diagnostician: [facility] External Provider IMG XR PROCEDURES Edited Result - Final * SARS-CoV-2 RNA, Influenza A/B, and RSV RNA, Ql NAAT (10/26/2024 3:53 AM EST) Influenza A PCR NEGATIVE Negative [facility] Influenza B PCR NEGATIVE Negative [facility] Resp Syncy Virus RNA Qual PCR NEGATIVE Negative [facility] SARS COV2 PCR NEGATIVE Negative [facility] Comment:All test results mus t be correlated with clinical findings.Negative results do not preclude SARS-CoV2, influenza Avirus, influenza B virus and/or RSV infectionand should not be used as the sole basis for treatment orother patient management decisions. Negative results must becombined with clinical observations, patient history, andepidemiological information.This test has not been evaluated for monitoring treatment ofinfection.This test has been authorized by the FDA under an EmergencyUse Authorization (EUA) for use by authorized laboratories.Testing performed on the [employer] GeneXpert utilizingreal-time RT-PCR.All SARS CoV2 and positive influenza A/B results arereported to [facility]. 10/26/2024 3:53 AM EST 10/26/2024 3:58 AM EST Generic External Data Provider LAB MICROBIOLOGY - GENERAL ORDERABLES Final Result [facility] [address] [place] [phone] * High Sensitivity Troponin I (10/26/2024 3:53 AM EST) Pathologist [facility] TROPONIN I HIGH SENSITIVITY 4.9 <3.5 - 35.0 ng/L [facility] Comment:The Gillespie high sens itivity Troponin-I results should beused in conjunction with other diagnostic information suchas ECG, clinical observations and information, and patientsymptoms to aid in the diagnosis of NC. 10/26/2024 3:53 AM EST 10/26/2024 3:58 AM EST us Generic External Data Provider LAB BLOOD ORDERAB LES Final Result Performing Organization Address [facility] [[email or web address]] de Phone Number [facility] [address] [place] [address] [phone] * (ABNORMAL) Comprehensive Metabolic Panel (10/26/2024 3:53 AM EST) [facility] Sodium 142 135 - 145 mmol/L [facility] Potassium 4.1 3.3 - 5.1 mmol/L [facility] Chloride 108 96 - 108 mmol/L [facility] Carbon Dioxide 27 22 - 29 mmol/L [facility] Anion Gap 11(L) 12 - 20 [facility] Urea Nitrogen (BUN) 11 9 - 16 mg/dL [facility] Creatinine, Serum 0.85 0.5 - 1.4 mg/dL [facility] Creatinine Clr Calc Pharmacy 108.9 [facility] Comment:eGFR (calculated fro m the MDRD study equation) and eCrCl(calculated from the Cockcroft-Gault equation) are based ondifferent parameters and may not yield comparable results.If eCrCl result is absurd, please check patient'sheight/weight. Estimated Glomerular Filt Rate >60 [facility] Comment:Chronic Kidney Disea se: Estimated GFR < 60 mL/min/[id number] Kidney Disease: Estimated GFR < 15 mL/min/1.73m2 Glucose 114 60 - 115 mg/dL [facility] Calcium 9.1 8.4 - 10.2 mg/dL [facility] Bilirubin, Total 0.7 0.0 - 1.0 mg/dL [facility] Aspartate Amino Transferase 42(H) 5 - 37 U/L [facility] Alanine Aminotransferase 82(H) 0 - 40 U/L [facility] Total Protein 7.3 6.5 - 8.0 g/dL [facility] Albumin Level 3.8 3.5 - 5.0 g/dL [facility] Alkaline Phosphatase 63 39 - 117 U/L [facility] 10/26/2024 3:53 AM EST 10/26/2024 3:58 AM EST us Generic External Data Provider LAB BLOOD ORDERAB LES Final Result Performing Organization Address City/State/[facility] Co de Phone Number [facility] [address] [place] [phone] * (ABNORMAL) CBC auto differential (10/26/2024 3:53 AM EST) White Blood Count 5.4 4.8 - 10.8 X10*3/uL [facility] Red Blood Count 4.78 4.60 - 5.80 X10*6/uL [facility] Hemoglobin 14.2 14.0 - 18.0 g/dl [facility] Hematocrit 40.6(L) 42.0 - 52.0 % [facility] Mean Corpuscular Volume 84.9 80.0 - 98.0 fL [facility] Mean Corpuscular Hemoglobin 29.7 27.0 - 33.0 pg [facility] Mean Corpuscular HGB Conc 35.0 31.0 - 36.0 g/dl [facility] Red Cell Distribution Width 11.9 11.0 - 16.0 % [facility] Platelet Count 158(L) 160 - 400 X10*3/uL [facility] Mean Platelet Volume 9.0(L) 9.4 - 12.4 fL [facility] Neutrophils Percent Auto 48.5 45 - 73 % [facility] Imm Gran Pct Auto 0.2 0.0 - 0.4 % [facility] Lymphocytes Percent Auto 34.7 20 - 40 % [facility] Monocytes Percent Auto 12.0(H) 2 - 11 % [facility] Eosinophils Percent Auto 3.7 0 - 4 % [facility] Basophils Percent Auto 0.9 0 - 2 % [facility] NRBC Pct Auto 0.0 0.0 - 0.2 /100WBC [facility] Neutrophils Absolute Auto 2.6 2.0 - 8.3 x10*3/uL [facility] Imm Gran Abs Auto 0.01 0.00 - 0.03 X10*3/uL [facility] Lymphocytes Absolute Auto 1.9 1.2 - 4.9 X10*3/uL [facility] Monocytes Absolute Auto 0.7 0.1 - 1.2 X10*3/uL [facility] Eosinophils Absolute Auto 0.2 0.0 - 0.4 X10*3/uL [facility] Basophils Absolute Auto 0.1 0.0 - 0.2 X10*3/uL [facility] NRBC Abs Auto 0.000 0.0 - 0.012 X10*3/uL [facility] 10/26/2024 3:53 AM EST 10/26/2024 3:58 AM EST us Generic External Data Provider LAB BLOOD ORDERAB LES Final Result [facility] [address] [place] [phone] documented in this encounter Visit Diagnoses Not on filedocumented in this encounter Additional Health Concerns Assessment Noted Time PHQ-9 Depression Total Score: 14 08/24/ 024 1:11 PM EST documented as of this encounter Care Teams Bobbin Disker Relationship Specialty Start Date End Date Rik Beraden MD [address] [place] [phone] PCP - General Internal Medicine 06/18/15 documented as of this encounter
--- OUTSIDE RECORDS SUMMARY | 2024-11-06 17:20 | XMS_ITS | Encounter Summary ---
Author Organization [employer] Address [address] [place] [address] Care Team Providers Care Watch And Clock Maker And Repairer Name Role Phone Rik Bearden MD Primary Care Provide r Reason for Visit * Reason Comments Med Change Request Encounter Details Date Type Department Care Team ([facility] st Contact Info) Description 10/01/2024 Refill [facility] [address] [place] [address] Rik Bearden MD [address] [place], [place] [phone] Social History Tobacco Use Types Packs/Day Years [...] Description 12/01/2024 10:00 AM EDT Office Visit [facility] [address] [place] [phone] Merritt Germain MD [address] [place] [phone] 01/09/2025 10:30 AM EDT Office Visit [facility] [address] [place] [phone] Rik Bearden MD [address] [place] [phone] documented as of this encounter Visit Diagnoses Not on filedocumented in this encounter Additional Health Concerns Assessment Noted Time PHQ-9 Depression Total Score: 14 024 1:11 PM EST documented as of this encounter Care Teams Watch And Clock Maker And Repairer Relationship Specialty Start Date End Date Rik Bearden MD [address] [place] [phone] PCP - General Internal Medicine 06/18/15 documented as of this encounter
--- OUTSIDE RECORDS SUMMARY | 2024-11-06 17:20 | XMS_ITS | Data Portability ---
Author Organization [employer] [facility], [facility] - [facility] Address [address] [place] [phone] Care Team Providers Care Medical Illustrator Name Role Phone HIM BILL OTHER Assessment Encounter Date Assessment Date Assessment LastModified by Organization Details LastModified Time 02/02/2024 02/02/2024 I have reviewed and agree with the assessment and plan as documented by the supervisor slitting and shipping. I provided real-time medical direction for this encounter and was immediately available to provide additional phone-based assistance as needed. 43M presenting with chest discomfort today. Patient was seen in [facility] yesterday for similar symptoms. He had full cardiac workup that was negative. Describes burning sensation in his chest that radiates up to neck and head. No associated SOB. Pt is prescribed omeprazole 40mg by his GI recently. Today vitals reveal no acute findings. 12 lead EKG unremarkable. Reviewed diet with patient, has not made any adjustments and was seen eating a burger upon medics arrival. Extensive discussion with patient about medications, and importance of diet considerations . Do not suspect cardiac involvement today. Recommend close GI follow up and to continue omeprazole. Red flags and return precautions discussed. [employer] Not available 02/02/2024 20:06:49 Plan of Treatment Reminders Order Date Submit Date Provider Last Modified By Organization Details Last Modified Time Details Appointments None recorded. Lab None recorded. Referral None recorded. Procedures None recorded. Surgeries None recorded. Imaging electrocard iogram 2024 025 [email or web address] [facility], [address] [place] [address], [place], [phone], 14:44:28 Medication Orders None recorded. Patient TargetsNo targets recorded. Patient InstructionsNo instructions recorded. Reason for Referral None Reported. Results Created Date Observation Date Name Description Value Unit Range Abnormal Flag Note LastModifiedBy Organization Detail LastModifiedTime 09/20/19 25 elect rocar diogr am No observ ation record ed. [email or web address] [address] [place] [address], [phone], 09/20/2024 14:44:27 Result Notes None recorded. Procedures Surgical History None recorded. Imaging Results Imaging Date Name Status LastModified by Organization Details LastModified Time 09/20/2024 electrocardiogram completed [email or web address] [address] [place] [address], [phone], 09/20/2024 14:44:27 Procedure Notes None recorded. Medical Equipment None Reported. Allergies Allergen ID Allergen Name Allergen Category Reaction Reaction Severity Criticality Documentation Date Start Date Code Code System Note Provider Name and Address Organization Details Recorded Time 64036 acetamino phen / oxycodone medicatio n Not available Not available Not available 09/20/2024 03311 3 RxNorm Not Available [facility] - production 12:45:02 Medications Name Sig Start Date Stop Date Status Note LastModified by Organization Details LastModified Time cyclobenzapr ine 10 mg tablet TAKE 1 TABLET BY MOUTH THREE TIMES A DAY NEEDED FOR MUSCLE SPASM active Not Available Not Available No t Available ciprofloxaci n 750 mg tablet TAKE 1 TABLET BY MOUTH TWICE A DAY active Not Available Not Available No t Available senna 8.6 mg tablet TAKE 1 OR 2 TABLETS BY MOUTH EVERY DAY AT BEDTIME NEEDED FOR CONSTIPATIO N active Not Available Not Available No t Available sucralfate 100 mg/mL oral suspension TAKE 10 ML (1 G) BY MOUTH EVERY 6 (SIX) HOURS IF NEEDED (HEARTBURN) . active Not Available Not Available No t Available sucralfate 1 gram tablet TAKE 1 TABLET BY MOUTH EVERYDAY AT BEDTIME active Not Available Not Available No t Available Fiber Laxative (calcium polycarbophi l) 625 mg tablet TAKE 2 TABLETS ORALLY DAILY FOR 30 DAYS active Not Available Not Available No t Available clonazepam 0.5 mg tablet TAKE 1 TABLET BY MOUTH AT BEDTIME NEEDED FOR ANXIETY/SLE EP ADMINISTER 30 MINUTES BEFORE BEDTIME active Not Available Not Available No t Available acetaminophe n 500 mg tablet TAKE 1 TABLET BY MOUTH EVERY 6 HOURS NEEDED FOR PAIN OR FEVER active Not Available Not Available No t Available pantoprazole 20 mg tablet,delay ed release TAKE 2 TABLETS BY MOUTH EVERY DAY active Not Available Not Available No t Available hydrocortiso ne 2.5 % topical cream with perineal applicator APPLY RECTALLY AT BEDTIME NEEDED FOR HEMORRHOIDS active Not Available Not Available Not Available pantoprazole 40 mg tablet,delay ed release TAKE 1 TABLET BY MOUTH EVERY DAY active Not Available Not Available No t Available mirtazapine 30 mg tablet TAKE 1 TABLET BY MOUTH EVERYDAY AT BEDTIME active Not Available Not Available No t Available esomeprazole magnesium 40 mg capsule,babita yed release TAKE 1 CAPSULE BY MOUTH EVERY DAY active Not Available Not Available No t Available docusate sodium 100 mg capsule PLEASE SEE ATTACHED FOR DETAILED DIRECTIONS active Not Available Not Available N ot Available omeprazole 20 mg capsule,babita yed release TAKE 1 CAPSULE BY MOUTH EVERY DAY active Not Available Not Available No t Available gabapentin 100 mg capsule TAKE 2 CAPSULES BY MOUTH AT BEDTIME FOR 30 DAYS active Not Available Not Available No t Available ibuprofen 600 mg tablet TAKE 1 TABLET EVERY 6 HOURS NEEDED FOR PAIN MAX 2400 MG/DAY active Not Available Not Available Not Available ondansetron 4 mg disintegrati ng tablet TAKE 1 TABLET ORALLY EVERY 8 HOURS NEEDED FOR NAUSEA AND VOMITING active Not Available Not Available No t Available loratadine 10 mg tablet TAKE 1 TABLET BY MOUTH EVERY DAY active Not Available Not Available No t Available naproxen 500 mg tablet TAKE 1 TABLET BY MOUTH TWICE A DAY NEEDED FOR PAIN FOR 10 DAYS active Not Available Not Available No t Available Laxative (bisacodyl) 5 mg tablet,delay ed release TAKE 4 TABLETS BY MOUTH UPON AWAKENING THE DAY BEFORE PROCEDURE FOLLOWED BY LARGE GLASS OF WATER active Not Available Not Available No t Available cyclobenzapr ine 5 mg tablet TAKE 1 TABLET BY MOUTH EVERY 8 HOURS NEEDED FOR PAIN active Not Available Not Available No t Available Fiber Therapy (methylcellu lose) 500 mg tablet TAKE 1 TABLET BY MOUTH TWICE A DAY active Not Available Not Available No t Available MAG-AL 200 mg-200 mg/5 mL oral suspension TAKE 30 ML BY MOUTH EVERY 4-6 HOURS NEEDED FOR PAIN active Not Available Not Available No t Available duloxetine 60 mg capsule,babita yed release TAKE 1 CAPSULE BY MOUTH EVERY DAY active Not Available Not Available No t Available lactulose 10 gram/15 mL oral solution TAKE 30MLS BY MOUTH EVERY DAY NEEDED FOR CONSTIPATIO N active Not Available Not Available No t Available varenicline tartrate 1 mg tablet TAKE 1 TABLET BY MOUTH 2 TIMES DAILY. TAKE WITH FULL GLASS OF WATER. active Not Available Not Available No t Available varenicline tartrate 0.5 mg tablet PLEASE SEE ATTACHED FOR DETAILED DIRECTIONS active Not Available Not Available N ot Available budesonide-f ormoterol HFA 160 mcg-4.5 mcg/actuatio n aerosol inhaler INHALE 2 PUFF INHALED 2 TIMES A DAY FOR 30 DAYS active Not Available Not Available Not Available diclofenac 1 % topical gel APPLY 2 G TOPICALLY 2 TIMES DAILY. TO NECK AND SHOULDER active Not Available Not Available No t Available mesalamine ER 0.375 gram capsule,exte nded release 24 hr TAKE 4 CAPSULES BY MOUTH EVERY DAY active Not Available Not Available No t Available quetiapine ER 150 mg tablet,exten ded release 24 hr TAKE 1 TABLET BY MOUTH EVERY DAY IN THE EVENING active Not Available Not Available No t Available Gavilax 17 gram/dose oral powder PLEASE SEE ATTACHED FOR DETAILED DIRECTIONS active Not Available Not Available N ot Available buprenorphin e 8 mg-naloxone [address] FILM UNDER THE TONGUE ONCE PER DAY FOR 28 DAYS. active Not Available Not Available No t Available Sublocade 300 mg/1.5 mL solution,ext ended release subcutaneous syringe active Not Available Not Available Not Available Vitals Date Recorded Heart rate Respiratory rate Oxygen saturation Oxygen saturation in Arterial blood by Pulse oximetry Body temperature Systolic blood pressure Diastolic blood pressure Provider Name and Address Organization Details Last Updated DateTime 4 58 /min 16 /min 98 % 98 % 97.9 [degF] 121 mm[Hg] 71 mm[Hg] Not Available [employer] [facility] 4 19:54:38 Date Recorded Body temperature Heart rate Respiratory rate Oxygen saturation Oxygen saturation in Arterial blood by Pulse oximetry Systolic blood pressure Diastolic blood pressure Provider Name and Address Organization Details Last Updated DateTime 5 99.3 [degF] 65 /min 18 /min 97 % 97 % 139 mm[Hg] 81 mm[Hg] Not Available [employer] 5 14:26:35 Social History None recorded. Functional Status None recorded. Mental Status None recorded. Family History Nothing Reported. Medical History No medical history recorded. Past Encounters Encounter ID Performer Location Encounter Start Date Encounter Closed Date Diagnosis/Indication Diagnosis SNOMED-CT Code Diagnosis ICD10 Code Diagnosis Note [id number] Lynda Camacho MD [facility] [address] [place] [phone] 02/02/2024 19:54:27 02/03/2024 10:33:21 Heartburn [id number] R12 [id number] Jessica Nobles MD [facility] [address] [place] [phone] 09/20/2024 13:54:48 09/20/2024 18:50:35 Dyspnea [id number] R06.00 Evaluation in the field was performed by my supervisor slitting and shipping colleague, as noted above, I provided real-time direction and supervisio n for this visit. 44yo M with chronic dizziness, visual changes, chest pain, and dyspnea p/w ongoing dyspnea both at rest and exertion and constant substernal chest pain. Went to ED last night and work up was unremarkab le, so called [facility] today. Symptoms currently at baseline. His care team has told him anxiety is likely a big part of his symptoms and he is awaiting getting a therapist. Also c/f GERD but pt not made dietary changes. On supervisor slitting and shipping eval VS wnl (temp 99.3F not c/w fever). Exam unremarkab le. EKG NSR no ST-T seg changes c/w ACS. Low suspicion for serious etiology given chronicity of symptoms, VS, ans reassuring EKG. Considered PE or aortic dissection but VS and exam not c/w these diagnoses. Red flags reviewed, encouraged dietary changes, med adherence, and f/up with regular care team. PCP: no changes We discussed the diagnostic uncertaint y of home visits and the risk associated with this. In this case, the patient and I felt this to be an acceptable and reasonable amount of risk given the benefit of avoiding an ED visit. We discussed the need to seek care urgently/e mergently in the setting of any new or worsening serious symptoms, shortness of breath, cough, chest pain, fever. Health Concerns Section Related Observation LastModified by Organization Detai ls LastModified Time None Recorded Concern Status LastModified by Organization Details LastModified Time None Recorded Advance Directives Directive None Recorded Payers Encounter Date Sequence Insurance Name Policy Number Policy Reece Covered Member ID Reece Member ID Guarantor Name 02/02/2024 1 [facility] - DOS ON OR AFTER 2022 - DUAL ELIGIBLE - DETENTION OPTIONS AND ONE CARE (MEDICARE REPLACEMENT/ADV ANTAGE - HMO) Cody Carranza [id number] Cody Carranza 09/20/2024 1 [facility] - DOS ON OR AFTER 2022 - DUAL ELIGIBLE - DETENTION OPTIONS AND ONE CARE (MEDICARE REPLACEMENT/ADV ANTAGE - HMO) Cody Carranza [id number] Cody Carranza Notes Date Note Type Note Provider Name and Address Organization Details Recorded Time 02/02/2024 text/html [facility] Nurse Triage Notes (Erika Roth): Chief Complaints: Cardiac Concern (other) Allergies: No Known Comments: Patient seen in ED for cardiac concerns. Patient felt like heart was racing. Reports testing was benign. Member states he is watching TV and patient felt like heart is racing again and shortness of breath. Denies chest pain. Speaking full sentences without labored breathing. [employer] POC Test Results from Tom Wagner - CARLOS ENRIQUE EKG (1) [20:07] EKG test performed. Attachments uploaded as part of this test result can be found under Documents section. ................... ................... ................... ................... ................... ................... ................... ........ Manager [employer] Note From Tom Wagner: Encountered patient, conscious alert and ambulatory with family present. Patient states that he has been experiencing substernal chest discomfort, which he describes as a mild burning sensation, that begins from the bottom of a sternum and travels down to his umbilical region. Patient states that he was seen at [facility] yesterday where bloodwork was done as well as chest x-rays, patient presents paperwork which states all exam findings were benign. During the exam, patient expressed that he has a history of ? a preston reflux? for which he has had a recent medication change, patient expresses that he feels some of his symptoms may be from a change in his medication. Patient expresses a fear of experiencing a heart attack. Patient additionally noted that his G.I. doctor wanted him to improve his diet, was noted to be eating a cheeseburger with trinidadian fries upon contact.Skin warm, dry and of appropriate color for ethnicity. Head and neck, free of trauma and edema. -JVD. Breath sounds present, clear and equal bilaterally. Abdomen is soft, non-tender and non-distended. Extremities are free of trauma and edema. 12 Lead EKG performed, sinus bradycardia noted with no present ectopy ; non-diagnostic for acute STEMI. [facility] contacted: expresses patient symptoms are likely due to his Gerd. Given patients complaints and 12 lead EKG presentation, [facility] is not convinced that patient? s symptoms are cardiac and nature. Patient was encouraged to follow up with his G.I. doctor as soon as he is able to. Patient was encouraged to monitor himself for cardiac symptoms, such as chest pain or shortness of breath, and to seek emergency medical attention should symptoms of that nature arise. Patient verbalizes understanding and comfortable with remaining at home at this time. ................... ................... ................... ................... ................... ................... ................... ........ Disposition: Fulfilled Lynda Camacho MD [address] [facility],[address], [place], [phone], [employer] 02/02/2024 21:13:45 09/20/2024 text/html [facility] Nurse Triage Notes (Jonah Dennis - JAMSHID): Reason For Request: Pt tested negative for flu and covid, pt is having a hard time breathing and elevated heartrate with dizziness Patient Reports: Active Chest pain, radiates to neck jaw and or arm; Shortness of Breath; Chest pain, increased fatigue; Weakness/tachycardi a Denies: History of Heart Attack, in the setting of active chest pain Diaphoretic/Sweatin g Describes as ? c rushing? Sudden onset of nausea/Vomiting and shortness of breath. Unable to speak in full sentences without distress Palpitations, feeling dizzy CHF history, increased swelling and edema Chief Complaints: Breathing problems, Weakness, Dizziness, Heart rate problems PMH: Chronic Back Pain PMH Reviewed at 09/20/2024 Allergies Reviewed at 09/20/2024:45 Comments: Veterinary Meat Inspector verified the Pt.'s name//address and phone number. Education provided on the response time and the Pt. was advised to monitor reported s/s and seek emergency treatment if needed. Pt reports feeling unwell with a cold and congestion - Negative flu and covid - SOB - Speaking full sentences - Weakness and Tachycardia/dizzine ss - Chest tightness -Pain is 3/10 - Seen in the ER yesterday/last night - LWBS - Declines ER treatment - I feel like the air is not going in. Denies taking over the counter medication. Manager [employer] Organization Information for Herminia Garcia Business Legal Name: [employer].? Address: [address] [place] [address], Biblical Studies Professor: Wilder SAUCEDA No.: [id number] Manager [employer] POC Test Results from Herminia Garcia EKG (14:26:42) EKG test performed. Attachments uploaded as part of this test result can be found under Documents section. ................... ................... ................... ................... ................... ................... ................... ........ Manager [employer] Note From Herminia Garcia: Sent to a call for a pt complaining of sob/chest tightness. [facility] arrives on scene, pt is alert and oriented, airway is patent. Pt complains of the following symptoms x 3 years, worsening in the past 3 months: feeling off balance, double vision, bilateral chest tightness and sob both at rest/exertion. Pt denies wills, cough, sore throat, n/v/d, abd pain, fever, or loc. Pt states he is being followed by pulmonology, and cardiology with all tests coming back normal. Pt states he has been told his symptoms are related to anxiety. Pt states he went to ED last night and had an EKG/flu/covid/RSV performed: normal; Pt states he is working with care team to find a therapist. BP:139/81, P:65, RR:18, SpO2:97% RA, T:99.3; Head: unremarkable; Chest: no tenderness; Lung sounds: clear bilaterally; Abdomen: soft, non-tender, no distention; Back: unremarkable; Extremities: unremarkable; Skin: pink, warm, dry; 12 lead ECG: uploaded to [employer]. Pt is reassured of stable condition. Pt advised to follow up with PCP and continue working to find a therapist. Red flags discussed. Pt has no further questions. ................... ................... ................... ................... ................... ................... ................... ........ [facility] Consulted: Jessica Nobles ................... ................... ................... ................... ................... ................... ................... ........ Disposition: Fulfilled Jessica Nobles MD [address] [place] [address],[address], [place], [phone], HARLAN - INNA FREEMAN 09/20/2024 15:41:18
--- OUTSIDE RECORDS SUMMARY | 2024-11-06 17:20 | XMS_ITS | Encounter Summary ---
Author Organization [employer] Address [address] [place] [address] Care Team Providers Care Retail And Restaurant Name Role Phone Rik Bearden MD Primary Care Provide r Reason for Visit * Reason Comments Med Refill Encounter Details Date Type Department Care Team ([facility] st Contact Info) Description 04/30/[address] [facility] [address] [place], [place] [phone] Rik Bearden MD [address] [place], [place] [phone] Other tobacco product nicotine dependence, uncomplicated Social History Tobacco Use Types Packs/Day Years [...] Recorded Patient Health Questionnaire-2 Score 6 02/29/2024 Sex and Gender Information Value Date Recorded Sex Assigned at Male 07/06/2022 10:18 AM EDT Legal Sex Male 10:18 AM EDT Gender Identity Male 07/06/2022 10:18 AM EDT Sexual Orientation Straight 07/06/2022 10 :18 AM EDT documented as of this encounter Plan of Treatment Upcoming Encounters Date Type Department Care Team (Late st Contact Info) Description 12/01/2024 10:00 AM EDT Office Visit [facility] [address] [place] [phone] Merritt Germain MD [address] [place] [phone] 01/09/2025 10:30 AM EDT Office Visit [facility] [address] [place] [phone] Rik Bearden MD [address] [place] [phone] documented as of this encounter Visit Diagnoses Diagnosis Other tobacco product nicotine dependence, uncomplicated documented in this encounter Additional Health Concerns Assessment Noted Time PHQ-9 Depression Total Score: 21 024 2:22 PM EDT documented as of this encounter Care Teams Retail And Restaurant Relationship Specialty Start Date End Date Rik Bearden MD [address] [place] [phone] PCP - General Internal Medicine 06/18/15 documented as of this encounter
--- OUTSIDE RECORDS SUMMARY | 2024-11-06 17:20 | XMS_ITS | Encounter Summary ---
Author Organization [employer] Address [address] [place] [address] Care Team Providers Care Regrinder Name Role Phone Rik Bearden MD Primary Care Provide r Reason for Visit * Reason Comments Med Refill Encounter Details Date Type Department Care Team ([facility] st Contact Info) Description 11/05/[address] [facility] [address] [place] [address] Rik Bearden MD [address] [place], [place] [phone] Social History Tobacco Use Types Packs/Day Years [...] Description 12/01/2024 10:00 AM EDT Office Visit [facility] [address] [place] [phone] Merritt Germain MD [address] [place] [phone] 01/09/2025 10:30 AM EDT Office Visit [facility] [address] [place] [phone] Rik Bearden MD [address] [place] [phone] documented as of this encounter Visit Diagnoses Not on filedocumented in this encounter Additional Health Concerns Assessment Noted Time PHQ-9 Depression Total Score: 14 024 1:11 PM EST documented as of this encounter Care Teams Regrinder Relationship Specialty Start Date End Date Rik Bearden MD [address] [place] [phone] PCP - General Internal Medicine 06/18/15 documented as of this encounter
--- OUTSIDE RECORDS SUMMARY | 2024-11-06 17:20 | XMS_ITS | Encounter Summary ---
Author Organization [employer] Address [address] [place] [address] Care Team Providers Care Fly Worker Name Role Phone Rik Bearden MD Primary Care Provide r Reason for Visit * Reason Onset Date Comments Nurse Triage 08/16/2023 Encounter Details Date Type Department Care Team ([facility] st Contact Info) Description 08/16/2023 Telephone [facility] [address] [place] [address] Rik Bearden MD [address] [place] [address] Nurse Triage Social History Tobacco Use Types Packs/Day [...] Telephone Encounter - June Sanchez RN - 08/16/2023 1:26 PM EST Triage call Pt reports was just in ED [facility] 08/14/23. Pt reported dx of constipation. Pt has had BM since then but, Pt reports pain in area between anus and testicles, burning pain . Pain comes and goes but, is getting stronger each time it comes. Pt reports this pain is increasing in occurrence. Pt denies urinary symptoms but, feels this may be prostrate associated or scrotal. Advised Pt to returnto [facility] Ed for further evaluation. Pt agreed with this disposition and will call for follow up afterEd visit. Protocol Used: Scrotum Pain (Adult) Protocol-Based Disposition: See in Office or Video Visit Today Positive Triage Question: * Pain comes and goes (intermittent) and present > 24 hours * All higher-acuity triage questions were negative Care Advice Discussed: * Pain Medicines * Pain Medicines - Extra Notes and Warnings * Reasons To Call Back - Severe pain - Constant pain lasts over 1 hour - Pain comes and goes, and lasts more than 24 hours - Swelling or redness occurs - You become worse * Telephone Encounter - Ar Miller - 08/16/2023 1:10 PM EST Symptom: Groin Pain - Male Outcome: Talk to a nurse or provider within 15 minutes Reason: Severe pain now documented in this encounter Plan of Treatment Upcoming Encounters Date Type Department Care Team (Late st Contact Info) Description 12/01/2024 10:00 AM EDT Office Visit [facility] [address] [place] [address] Merritt Germain MD [address] [place] [id number] 01/09/2025 10:30 AM EDT Office Visit [facility] [address] [place] [address] Rik Bearden MD [address] [place] [id number] documented as of this encounter Visit Diagnoses Not on filedocumented in this encounter Care Teams Fly Worker Relationship Specialty Start Date End Date Rik Bearden MD [address] [place] [phone] PCP - General Internal Medicine 06/18/15 documented as of this encounter
--- OUTSIDE RECORDS SUMMARY | 2024-11-06 17:20 | XMS_ITS | Encounter Summary ---
Author Organization [employer] Address [address] [place] [address] Care Team Providers Care Vice President Of Development Name Role Phone Rik Bearden MD Primary Care Provide r Reason for Visit * Reason Onset Date Comments Nurse Triage 04/12/2023 Encounter Details Date Type Department Care Team ([facility] st Contact Info) Description 04/12/2023 Telephone [facility] [address] [place] [address] Rik Bearden MD [address] [place], [place] [phone] Nurse Triage Social History Tobacco Use Types [...] Telephone Encounter - June Sanchez RN - 04/12/2023 2:29 PM EDT Triage call Pt reports dizziness for over 2 months now. Pt reports dizziness comes when gets up in the morning , when gets up from sitting and sometimes feels like everything is spinning. Advised to be careful of falls not to move quickly or walk till dizziness resolves and Pt agrees. Pt requests to see provider regarding this dizziness. Apt with TAMMY Summers 04/22/23 @ 200pm. Insurance is verified as active prior to booking. Protocol Used: Dizziness (Adult) Protocol-Based Disposition: See in Office or Video Visit within 2 Weeks Positive Triage Question: * Dizziness not present now, but is a chronic symptom (recurrent or ongoing AND lasting > 4 weeks) * All higher-acuity triage questions were negative Care Advice Discussed: * Reasons To Call Back - After 2 hours of rest and fluids And still feeling dizzy. - Passes out (faints). - You become worse. * Telephone Encounter - Mirna Alvares - 04/12/2023 2:07 PM EDT Symptom: Dizziness Outcome: Schedule an urgent appointment (within 4 hours) or talk to a nurse or provider soon Reason: Getting worse The caller accepted this outcome Please contact pt at [phone] (Emirati) documented in this encounter Plan of Treatment Upcoming Encounters Date Type Department Care Team (Late st Contact Info) Description 12/01/2024 10:00 AM EDT Office Visit [address] [address] Merritt Germain MD [address] [place] [phone] 01/09/2025 10:30 AM EDT Office Visit [facility] [address] [place] [phone] Rik Bearden MD [address] [place] [phone] documented as of this encounter Visit Diagnoses Not on filedocumented in this encounter Care Teams Vice President Of Development Relationship Specialty Start Date End Date Rik Bearden MD [address] [place] [address] PCP - General Internal Medicine 06/18/15 documented as of this encounter
--- OUTSIDE RECORDS SUMMARY | 2024-11-06 17:20 | XMS_ITS | Clinical Summary ---
Author Organization [employer] Address [address] [facility] [address] [place] [address] Care Team Providers Care Bag Maker Name Role Phone Rik Bearden MD Primary Care Provide r Allergies Active Allergy Reactions Criticality Noted Date Comments Shellfish Allergy Rash Low 10/28/2022 Medications fluticasone (Flonase) 50 MCG/ACT nasal spray spray 1 spray by intranasal route every day in each nostril 05/18/20 22 Active nicotine polacrilex (Nicorette) 4 MG gum chew [address] in between cheeks and gums as needed, up to every 2 hours as needed and as directed 09/09/19 22 Active Symbicort 160-4.5 MCG/ACT inhaler 09/04/20 22 Active omeprazole (PriLOSEC) [address] capsuleIndicat ions:Gastroeso phageal reflux disease without esophagitis TAKE 1 CAPSULE BY MOUTH EVERY DAY 30 MINUTES TO 1 HOUR BEFORE A MEAL 90 capsule 3 10/08/19 23 Active Mag-Al 200-200 MG/5ML suspension TAKE 30 ML BY MOUTH EVERY 4-6 HOURS NEEDED FOR PAIN 02/27/20 23 Active [facility] Soluble Fiber Therapy 500 MG tablet Take 1 tablet by mouth 2 times daily. 03/10/20 23 Active hydrocortisone (Anusol-HC) 2.5 % rectal creamIndicatio ns:External hemorrhoid Insert into the rectum every 12 (twelve) hours. For Up to 7 days 28 g 1 08/13/20 23 Active lactulose (Chronulac) 10 GM/15ML solution TAKE 30MLS BY MOUTH EVERY DAY NEEDED FOR CONSTIPATION 08/14/20 Active [facility] Fiber Laxative 625 MG tablet TAKE 2 TABLETS ORALLY DAILY FOR 30 DAYS 08/11/20 Active Bisacodyl EC 5 MG EC tablet 08/24/20 Active sertraline (Zoloft) 25 MG tablet Take 1 tablet (25 mg) by mouth Once per day. 30 tablet 11 02/07/20 24 2024 Active docusate sodium (Colace) 100 MG capsuleIndicat ions:Lower abdominal guarding Take 1 capsule (100 mg) by mouth Once per day. 180 capsule 1 07/03/20 24 2024 Active hydrOXYzine HCl (Atarax) 25 MG tablet TAKE 1 TABLET BY MOUTH TWICE A DAY 60 tablet 1 09/07/19 Active Buprenorphine HCl-Naloxone HCl (Suboxone) 8-2 MG SL filmIndication s:Uncomplicate d opioid dependence (CMS/HCC) Place 1 Film under the tongue Once per day for 28 days. Do not start before November 03, 2024. 28 Film 11/03/19 25 2024 Active buprenorphine- naloxone (Suboxone) 4-1 MG per sublingual filmIndication s:Uncomplicate d opioid dependence (CMS/HCC) Place 1 Film under the tongue Once per day for 28 days. 28 Film 11/03/19 25 2024 Active buprenorphine- naloxone (Suboxone) 2-0.5 MG per sublingual filmIndication s:Uncomplicate d opioid dependence (CMS/HCC) Place 1 Film under the tongue Once per day for 28 days. 28 Film 11/03/19 25 2024 Active Buprenorphine HCl-Naloxone HCl (Suboxone) 8-2 MG SL filmIndication s:Uncomplicate d opioid dependence (CMS/HCC) Place 1 Film under the tongue Once per day for 28 days. Do not start before October 06, 2024. 28 Film 10/06/19 25 2024 Discontinued(R eorder (will not trigger notification to Pharmacy)) Active Problems Problem Noted Date Diagnosed Date Crohn's disease of large intestine with complica tion 08/24/2024 Assessment & Plan (08/24/2024 1:29 PM EST): Dr Toro CARRERA suspects pt has Chron's disease Patient was started on Entyvio Neck pain on left side 05/30/2024 Assessment & Plan (08/24/2024 1:35 PM EST): Patient with c/o left sided neck pain radiates to left shoulder Pt did not have the work up I ordered last visit, he declines a NCS Plan; Obtain plain films neck, refer to PSSP to rule out radiculopathy Assessment & Plan (05/30/2024 1:21 PM EDT): Patient with c/o left sided neck pain radiates to left shoulder PlaN; Obtain plain films neck and shoulder and NCS to rule out radiculopathy Low testosterone in male 03/16/2024 Assessment & Plan (03/16/2024 1:00 PM EDT): Pt with c/o low libido Recent Testosterone Free and Total were low Etiology ? Plan: Endocrinology evaluation Hypogonadism in male 03/16/2024 Assessment & Plan (08/24/2024 12:55 PM EST): Pt with hypogonadism Under the care of Endocrinology Dr Pablo, last note from 07/[address] Pablo suspects the Suboxone is contributing to this. MRI of brain 06/13/2024 IMPRESSION: Unremarkable contrast enhanced MRI of the brain. Please note that this routine MRI is not tailored to evaluation of the sellar contents which are suboptimally assessed. No gross abnormality of the sellar or parasellar region. He is on Testosterone Gel. Dr. Pablo recommended a 6 week follow up Assessment & Plan (05/30/2024 1:06 PM EDT): Pt with hypogonadism Under the care of Endocrinology Dr Pablo, last note from 03/[address] Pablo suspects the Suboxone is contributing to this. MRI of brain ordered pending. Assessment & Plan (03/16/2024 2:10 PM EDT): Pt c/o low libido Free and Total testosterone low Plan: Obtain LH, FSH to find out if primary vs secondary Endocrinology evaluation Depression, recurrent 03/16/2024 Assessment & Plan (03/16/2024 2:14 PM EDT): Here for a f/u Patient under the care of a psychotherapist Parisa Alejandra and a psychiatrist Dr. Miller Encouraged patient to continue therapy with them See med list for up to date prescriptions UTI symptoms 02/09/2024 Assessment & Plan (02/09/2024 2:17 PM EDT): -Urinalysis and urine culture sent to the lab -Empiric antibiotics started -Potential adverse effects of the medication reviewed -Discussed strategies to prevent future infections: Increase fluids. Urinate after sex. Avoid bladder irritants. -Report fever, chills, worsening symptoms or abdominal/flank pain -Advised to seek medical attention if no improvement or worsening of symptoms -ER precautions reviewed. Inguinal lymphadenopathy 2023 Assessment & Plan (03/16/2024 12:58 PM EDT): Seen on recent US done by Dr. Tillman, ordered a repeat to ensure resolution Drug-induced constipation 08/25/2023 Assessment & Plan (08/25/2023 12:21 PM EST): Secondary to Suboxone likely Continue GI prescribed meds Chest discomfort 06/03/2023 Assessment & Plan (05/30/2024 12:59 PM EDT): Evaluated extenively by cardiology with negative stress test 05/21/2017. . Suspect it is related to GERD. Last seen 05/30/2024 they tried to reassure him, and recommended a CTA Assessment & Plan (07/20/2023 3:45 PM EST): Evaluated extenively by cardiology with negative stress test 05/21/2017. . Suspect it is related to GERD. Pt advised take omerpozole for 2 weeks. Assessment & Plan (06/03/2023 12:17 PM EDT): Evaluated by cardiology with negative stress test and echo. Will request results 06/03/2023. -Suspect it is related to GERD. -Pt not taking medication right now but not symptomatic currently. -Advised take omerpozole for 2 weeks. -Declines flu vaccine. Fibromyalgia 04/22/2023 Chronic left shoulder pain 04/22/2023 Transaminitis 03/30/2023 Assessment & Plan (05/30/2024 1:15 PM EDT): Patient with chronic persistent elevation of LFTs Hepatitis B and C Negative Denies alcohol use Elevated trigs, fatty liver ? Pt under the care of [facility], last seen 01/2024 Liver US 03/2024 showed: Hepatomegaly, 16.5 cm. Increased hepatic parenchymal heterogeneity and echogenicity could be associated with hepatocellular disease/hepatic steatosis and substantially limits visualization. Hypoechoic areas within the right hepatic lobe are characteristic of focal sparing within a fatty liver. Referred to [facility] for chronic elevation of LFTs and positive VICKIE to rule out autoimmune hepatitis. Appointment scheduled for 08/14/2024 Pt reminded of appointment today Assessment & Plan (03/16/2024 2:12 PM EDT): Patient with chronic persistent elevation of LFTs Hepatitis B and C Negative Denies alcohol use Elevated trigs, fatty liver ? Pt under the care of [facility], last seen 01/2024 Liver US ordered, pending Will refer to [facility] for chronic elevation of LFTs and positive VICKIE to rule out autoimmune hepatitis Assessment & Plan (02/29/2024 12:43 PM EDT): Patient with chronic persistent elevation of LFTs Will obtain a Hepatitis Panel Pt under the care of [facility], last seen 01/2024 Obtain Liver US SOB (shortness of breath) 03/30/2023 Rhinosinusitis 03/30/2023 DELFINO (obstructive sleep apnea) 03/30/2023 Dysuria 03/30/2023 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 B. Gastroesophageal junction, biopsy: Squamous mucosa with hyperplasia, spongiosis and rare intraepithelial neutrophils, consistent with esophagitis, and columnar mucosa with hyperplasia and chronic active inflammation; negative for intestinal metaplasia and dysplasia. C. Esophagus, distal, biopsy: Squamous mucosa with mild hyperplasia, in keeping with esophagitis; no columnar mucosa present. 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 Tristen Miller last seen 01/[address] July 2024 Assessment & Plan (02/16/2023 1:22 PM EDT): Pt here for a follow up with underlying depression, anxiety, c/o fatigue and pain all over his body. On previous exam he had multiple trigger points. Suggestive of Fybromyalgia. Pt has been referred to Rheumatology upcoming appointment 03/28/2023 Previous visit I started him on Gabapentin 100 mg po TID, pt does not know if this has been effective but would like to hold off on increasing the dose until he sees the Piano Instructor Assessment & Plan (01/07/2023 11:24 AM EDT): Pt with underlying depression, anxiety, c/o fatigue and pain all over his body. On exam he has multiple trigger points. Suggestive of Fybromyalgia. Pt has been referred to Rheumatology upcoming appointment 03/28/2023 Plan: Gabapentin 100 mg po TID Positive VICKIE (antinuclear antibody) 11/10/2022 Assessment & Plan (03/16/2024 12:55 PM EDT): Pt with c/o intermittent joint pains. So far exam unremarkable VICKIE positive Rheumatology saw him Rosanne Donahue MD last 12/2023 He did not think his positive VICKIE was a sign of autoimmune inflamatory disease and diagnosed him with Fibromyalgia. Assessment & Plan (01/07/2023 11:14 AM EDT): Pt with c/o intermittent joint pains. So far exam unremarkable VICKIE positive Rheumatology evaluation to r/o inflammatory arthropathy pending scheduled for 03/28/2023 Assessment & Plan (11/10/2022 1:29 PM EST): Pt with c/o intermittent joint pains. 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 Evaluated by cardiovascular invasive specialist Dr Tristen Miller ( Last note 07/14/2024 ) CT chest 08/08/2024 IMPRESSION: Nonspecific partially calcified lymph nodes, mediastinum and right pulmonary hilum, smaller since prior exam. Previous granulomatous disease processes and or sarcoidosis versus less likely a lymphoproliferative disorder should be considered. Probable hepatic steatosis. 1 year follow recommended by Dr Miller Assessment & Plan (02/29/2024 12:38 PM EDT): Patient with Hx of Covid-19 infection, ever since c/o dyspnea and palpitations. Evaluated by cardiovascular invasive specialist Dr Tristen Miller ( Last note 02/02/2024 ) He mentions on his note that patient had relatively normal pulmonary function studies and had a unremarkable cardiac evaluation. CT/CT angio chest PE protocol IMPRESSION: 2. Stable pulmonary nodules and emphysema. 3. Stable prominent right hilar lymph nodes. Increasing size of a single preaortic lymph node. He continues to be very symptomatic to the point that is affecting his quality of life. Dr. Miller is prescribing pt with Symbicort and omeprazole in case he was developing any esophageal spasms from reflux disease. He scheduled him for a repeat CT and f/u with him in July to monitor his hilar lymphadenopathy Assessment & Plan (09/07/2022 3:01 PM EST): Patient with Hx of Covid-19 infection, ever since c/o dyspnea and palpitations. Evaluated by cardiovascular invasive specialist Dr Tristen Miller ( Last note 04/2022 ) He mentions on his note that patient had relatively normal pulmonary function studies and had a unremarkable cardiac evaluation. With a CT scan of the chest that was also pretty unremarkable. Yet he continues to be very symptomatic to the point that is affecting his quality of life. Dr. Miller is prescribing pt with Symbicort and omeprazole in case he was developing any esophageal spasms from reflux disease. Perineum pain, male 09/07/2022 Assessment & Plan (09/07/2022 3:09 PM EST): Pt with intermittent c/o rectal and perineal pain, In the past he had c/o intermittent rectal bleeding for which he was evaluated by a colorectal surgeon Dr Valladares ( 2019 and had an anoscopy that showed both internal and external hemorrhoids. Pt c/o of localized perineal pain in between his rectum and scrotum, no visible swelling or masses CT of pelvis was done 04/24/2022 and it was unremarkable, no findings to explain patient's source of pain Throat pain in adult 09/07/2022 Assessment & Plan (09/07/2022 3:21 PM EST): Pt with intermittent c/o throat pain, treated previously for presumptive viral and infectious etiologies, seen in the ER on previous occassions. As part of his work up he had a CT of his neck without contrast at [facility] ER on 07/17/2022 that showed no acute pathology and likely reactive lymh nodes. Prior to that he had a CT of the maxillofacial bones that showed rightward nasal septal deviation. Pt was referred to ENT for that Chronic tension-type headache, not intractable 0 09/07/2022 Assessment & Plan (05/30/2024 1:13 PM EDT): Patient with previous c/o moderate to severe headaches , described as intensity 7/10 bitemporal, associated with foginess, and dizziness. Neuro exam back then was unremarkable Initial work up included a normal ESR and a CT of his brain that was done on 06/25/2022 showed no acute process. There was an incidental finding of a 1.6 cm cystic appearing focus in the inferolateral basal ganglia on the right and also involving the right capsular structures which may reflect a megaperivascular space as the most likely etiology. 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 Assessment & Plan (09/07/2022 3:30 PM EST): Patient with previous c/o moderate to severe headaches , described as intensity 7/10 bitemporal, associated with foginess, and dizziness. Neuro exam back then was unremarkable Initial work up included a normal ESR and a CT of his brain that was done on 06/25/2022 showed no acute process. There was an incidental finding of a 1.6 cm cystic appearing focus in the inferolateral basal ganglia on the right and also involving the right capsular structures which may reflect a megaperivascular space as the most likely etiology. 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 Midline low back pain without sciatica Assessment & Plan (11/10/2022 1:39 PM EST): Pt here for a f/u seen at our [facility] with c/o acute on chronic low back pain Had an x-ray of his LOS spine 05/06/2022 that was read as unremarkable previously with c/o persistent low back pain. He was referred to PT with no good results. Initial work up included plain films of his LS spine that were unremarkable. He was referred to [facility], Previously there was evidence of muscle spasm, he was taking Naproxen with no good results, I added a muscle relaxant t Baclofen 10 mg po q 8 hrs prn. Pt states it did not help either. MRI of his LS spine 11/2018 was Normal. Patient was seen at the [facility] and they reviewed his MRI and recommended steroid injection/Pt for myofascial pain, pt declined back then. Today he is complaining of recurrent low back pain that radiates to both lower extremities Patient was seen at [facility], they recommended PT Assessment & Plan (09/08/2022 9:30 AM EST): Pt here for a f/u seen at our [facility] with c/o acute on chronic low back pain Had an x-ray of his LOS spine 05/06/2022 that was read as unremarkable previously with c/o persistent low back pain. He was referred to PT with no good results. Initial work up included plain films of his LS spine that were unremarkable. He was referred to [facility], Previously there was evidence of muscle spasm, he was taking Naproxen with no good results, I added a muscle relaxant t Baclofen 10 mg po q 8 hrs prn. Pt states it did not help either. MRI of his LS spine 11/2018 was Normal. Patient was seen at the [facility] and they reviewed his MRI and recommended steroid injection/Pt for myofascial pain, pt declined back then. Today he is complaining of recurrent low back pain that radiates to both lower extremities Plan: Will refer back to [facility] for evaluation Scrotal pain 08/11/2022 Assessment & Plan (09/07/2022 2:52 PM EST): Patient with intermittent c/o of penile pain Treated for acute prostatitis with no improvement of symptoms. CT/NG negative Exam: normal with no pathology noted. referred to Urology for evaluation, anibal note on record from April 2022 Hypertriglyceridemia 08/03/2022 Assessment & Plan (03/16/2024 2:13 PM EDT): Most recent lipid profile from: Lab Results Component Value Date TRIG 240 (H) 03/08/2024 CHOL 261 (H) 03/08/2024 LDLCHOLCAL 178 (H) 03/08/2024 HDL 35 (L) 03/08/2024 Currently not/on a regimen . Most recent LFT'S persistently elevated I have reinforced dietary recommendations Has shelfish allergy, Fish Oil might not be tolerated advised to try to adhere to a low cholesterol diet, counseled and educated about diet and exercise Assessment & Plan (02/29/2024 12:46 PM EDT): Most recent lipid profile from: 10/23/2021 shows a total cholesterol of: 207 triglycerides of: 317 HDL of: 29 and LDL of:115 Currently not/on a regimen . Most recent LFT'S elevated For now I have reinforced dietary recommendations and will repeat Lipid profile. Pt did not do it again Ordered today advised to try to adhere to a low cholesterol diet, counseled and educated about diet and exercise Assessment & Plan (02/16/2023 12:55 PM EDT): Most recent lipid profile from: 10/23/2021 shows a total cholesterol of: 207 triglycerides of: 317 HDL of: 29 and LDL of:115 Currently not/on a regimen . Most recent LFT'S from: 10/23/2021 were stable For now I have reinforced dietary recommendations and will repeat Lipid profile. Pt did not do it again Ordered today advised to try to adhere to a low cholesterol diet, counseled and educated about diet and exercise Assessment & Plan (01/07/2023 11:13 AM EDT): Most recent lipid profile from: 10/23/2021 shows a total cholesterol of: 207 triglycerides of: 317 HDL of: 29 and LDL of:115 Currently not/on a regimen . Most recent LFT'S from: 10/23/2021 were stable For now I have reinforced dietary recommendations and will repeat Lipid profile. Pt did not do it advised to try to adhere to a low cholesterol diet, counseled and educated about diet and exercise Assessment & Plan (09/07/2022 3:04 PM EST): Most recent lipid profile from: 10/23/2021 shows a total cholesterol of: 207 triglycerides of: 317 HDL of: 29 and LDL of:115 Currently not/on a regimen . Most recent LFT'S from: 10/23/2021 were stable For now I have reinforced dietary recommendations and will repeat Lipid profile advised to try to adhere to a low cholesterol diet, counseled and educated about diet and exercise, Patient encouraged to come up with a personal goal for weight loss. Left varicocele 08/03/2022 Assessment & Plan (09/07/2022 3:41 PM EST): Testicular US 10/25/2019 showed: Left varicocele with multiple areas of thrombus visualized in the varicocele. These are not tender at present. The testes, epididymis and rest of the scrotum is unremarkable. Pt was seen by Dr Jose Bang (Urologist ) via Telehealth due to Covid and reviewed the U/S per his note back in December. He asked pt to contact him if he experienced painor any other symptoms or otherwise f/u in 6 month. Pt was last seen by Urology 04/14/2022 Heart palpitations 01/28/2022 Assessment & Plan (03/30/2023 10:39 AM EDT): Seen multiple times in the ER for this, most recently 03/21/2023 Previous work up included an EKG NSR with no st t wave changes, neg troponins Last cardiology note from 01/07/[address] Amaya Who recommended an ECHO and a 3 day Holter monitor. Pt would benefit from an Event monitor, he will call cardiology to schedule an appointment to continue evaluation Assessment & Plan (02/16/2023 1:17 PM EDT): Pt here for a f/u seen multiple times in the ER for this, most recently 02/2023 Previous work up included an EKG NSR with no st t wave changes Reviewed previous cardiac notes. Last note from 01/07/[address] Amaya Who recommended an ECHO and a 3 day Holter monitor. Pt would benefit from an Event monitor Assessment & Plan (09/07/2022 3:36 PM EST): Pt here for a f/u seen multiple times in the ER for this Previous work up included an EKG NSR with no st t wave changes Reviewed previous cardiac notes. Last note from 01/07/[address] Amaya Who recommended an ECHO and a 3 day Holter monitor Palpitations were thought to be most likely withdrawal symptoms from erratic use of suboxone. Pt is now enrolled in the Suboxone program. 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 He used to follow with them every 6 months. Encounters Date Type Department Care Team Description 11/05/2024 Refill [facility] [address] [place] [address] Rik Bearden MD 11/03/2024 10:15 AM EST Office Visit [facility] [address] [place] [address] Merritt Germain MD Uncomplicated opioid dependence (CMS/HCC) (Primary Dx); Vaping nicotine dependence, tobacco product 11/03/2024 Travel 10/27/2024 Refill [facility] [address] [place] [address] Nicole Rubio RN Uncomplicated opioid dependence (CMS/HCC) 10/26/2024 Orders Only GENERIC EXTERNAL DATA DEPARTMENT Provider, Generic External Data 10/06/2024 9:45 AM EST Clinical Support [facility] [address] [place] [address] Nicole Rubio RN Opioid type dependence, continuous (CMS/HCC) (Primary Dx) 10/06/2024 Travel 10/01/2024 Refill [facility] [address] [place] [address] Rik Bearden MD 09/29/2024 Refill [facility] [address] [place] [address] Nicole Rubio RN Uncomplicated opioid dependence (CMS/HCC) 09/28/2024 Telephone [facility] [address] [place] [address] Rik Bearden MD Results 09/21/2024 Telephone [facility] [address] [place] [address] Rik Bearden MD 09/19/2024 Orders Only [facility] External Provider, [facility] 09/08/2024 9:45 AM EST Clinical Support [facility] [place] [address] Ethel Turner RN Uncomplicated opioid dependence ([facility]/HCC) (Primary Dx); Vaping nicotine dependence, tobacco product 09/08/2024 Travel 09/07/2024 Refill [facility] [address] [place] [address] [facility], [facility] 09/06/2024 Orders Only GENERIC EXTERNAL DATA DEPARTMENT Provider, Generic External Data 08/31/2024 Refill [facility] [place] [address] Ethel Turner RN Uncomplicated opioid dependence (CMS/HCC) 08/25/2024 Orders Only [facility] [address] Rik Bearden MD Neck pain 08/24/2024 1:15 PM EST Office Visit [facility] [place] [address] Rik Bearden MD Hypogonadism in male (Primary Dx); 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; Crohn's disease of large intestine with complication (CMS/HCC); Neck pain on left side; Encounter for immunization 08/24/2024 Travel 08/18/2024 Telephone [facility] [address] [place] [address] Rik Bearden MD Chart Prep 08/14/2024 Patient Outreach [facility] [address] [place] [address] Natanael Valladares Recovery Supports 08/11/2024 10:30 AM EST Clinical Support [facility] [address] [place] [address] Adarsh Lassiter RN Opioid type dependence, continuous (CMS/HCC) (Primary Dx) 08/11/2024 Travel from Last 3 Months Immunizations Name Administration Dates Next Due Hep B, adult 08/24/2024,03/16/2024 Moderna Covid-19 Vaccine 12+ 06/26/2022,05/18/20 22 Td (adult), 5 Lf tetanus tox oid, preservative free, adsorbed 05/05/2013 Tdap 05/11/2024 Family History Medical History Relation Name Comments Cancer Father's Sister lung cancer Cancer Paternal Grandmother lung ca ncer Relation Name Status Comments Father's Sister Paternal Grandmother Social History Tobacco Use Types Packs/Day Years Used Date Smoking Tobacco: Former Cigarettes Passive Smoke Exposure: Past Smokeless Tobacco: Current Tobacco Cessation:Ready to Q uit: Not Asked; Counseling Given: Not Answered Comments:Pt doesn't smoke cigarettes but he uses the vapes Alcohol Use Standard Drinks/Week Comments Never 0 (1 standard drink = 0.6 oz pur e alcohol) Depression Answer Date Recorded Patient Health Questionnaire-9 Score 14 08/24/2024 Patient Health Questionnaire-9 Score 14 08/24/2024 Last PHQ-9: Questionnaire Data Not on file 1 10/25/2023 Housing Stability Answer Date Recorded What is your housing situation today? I have christiano sing 11/23/[address] you li [...] Orientation Straight 07/06/2022 10 :18 AM EDT Last Filed Vital Signs Vital Sign Reading Time Taken Comments Blood Pressure 129/77 08/24/2024 1:07 PM EST Pulse 75 08/24/2024 1:07 PM EST Temperature 35.9 ??C (96.6 ??F) 08/24/2024 1:07 PM ES T Respiratory Rate 20 08/24/2024 1:07 PM EST Oxygen Saturation 98% 08/24/2024 1:07 PM EST Inhaled Oxygen Concentration - - Weight 77.1 kg (170 lb) 08/24/2024 1:07 PM EST Height 167.6 cm (5' 6 ) 08/24/2024 1:07 PM EST Body Mass Index 27.44 08/24/2024 1:07 PM EST Plan of Treatment Upcoming Encounters Date Type Department Care Team (Late st Contact Info) Description 12/01/2024 10:00 AM EDT Office Visit [facility] [address] [place] [phone] Merritt Germain MD [address] [place] [phone] 01/09/2025 10:30 AM EDT Office Visit [facility] [address] [place] [phone] Rik Bearden MD [address] [place] [phone] Health Maintenance Due Date Last Done Comments Family Planning (PISQ) 1995 Hepatitis A Vaccines (1 of 2 - Risk 2-dose series) 1999 COVID-19 Vaccine (3 - 2023-2 5 season) 2024 06/26/2022, 05/18/2022 Influenza Vaccine (#1) 2024 Hepatitis B Vaccines (3 of 3 - 19+ 3-dose series) 10/19/2024 08/24/2024, 03/16/2024 SDOH Screening 11/22/2024 11/23/2023 Depression Monitoring (PHQ-9) 02/22/2025, 08/24/2024 Alcohol/Substance Use Screening 08/24/2025 08/24/2024 Depression Screening 08/24/2025 08/24/2024, 08/24/2024 Tobacco Screening 08/24/2025 08/24/2024 Lipid Panel 03/08/2029 03/08/2024, 08/13/2021 Zoster Vaccines (1 of 2) 2030 DTaP/Tdap/Td Vaccines (2 - T d or Tdap) 05/11/2034 05/11/2024, 05/05/2013 RSV Patients and Patients Aged 60 years or older (1 - 1-dose 75+ series) 2055 HIV Screening Completed 03/27/2022 Hepatitis C Screening Completed 03/08/2024 , 10/23/2021 HIB Vaccines Aged Out No longer eligi ble based on patient's age to complete this topic HPV Vaccines Aged Out No longer eligi ble based on patient's age to complete this topic IPV Vaccines Aged Out No longer eligi ble based on patient's age to complete this topic Meningococcal Vaccine Aged Out No cornell amanda eligible based on patient's age to complete this topic Pneumococcal Vaccine: Pediatrics (0 to 5 Years) and At-Risk Patients (6 to 49) Years) Aged Out No longer eligible b ased on patient's age to complete this topic RSV under 20 months Aged Out No longe r eligible based on patient's age to complete this topic Rotavirus Vaccines Aged Out No longer eligible based on patient's age to complete this topic Procedures Procedure Name Priority Date/Time Associated Diagnosis Comments POCT HECTOR-14 URINE DRUG SCREEN Routine 11/03/2024 9:17 AM EST Uncomplicated opioid dependence (CMS/HCC) XR CHEST 2 VIEWS Routine 10/26/2024 4:15 AM EST HIGH SENSITIVITY TROPONIN I Routine 10/26/2024 3:53 AM EST COMPREHENSIVE METABOLIC PANEL Routine 10/26/2024 3:53 AM EST CBC WITH AUTO DIFFERENTIAL Routine 10/26/2024 3:53 AM EST SARS COV2/INFLUENZA A/B AND RSV RNA QL NAAT Routine 10/26/2024 3:53 AM EST POCT HECTOR-14 URINE DRUG SCREEN Routine 10/06/2024 9:30 AM EST Opioid type dependence, continuous (CMS/HCC) XR CHEST 2 VIEWS Routine 09/19/2024 10:1 2 PM EST SARS COV2/INFLUENZA A/B AND RSV RNA QL NAAT Routine 09/19/2024 9:40 PM EST POCT HECTOR-14 URINE DRUG SCREEN Routine 09/08/2024 10:51 AM EST Uncomplicated opioid dependence (CMS/HCC) HIGH SENSITIVITY TROPONIN I Routine 09/06/2024 10:45 PM EST LIPASE Routine 09/06/2024 9:13 PM EST COMPREHENSIVE METABOLIC PANEL Routine 09/06/2024 9:13 PM EST CBC WITH AUTO DIFFERENTIAL Routine 09/06/2024 9:13 PM EST XR CERVICAL SPINE 4V Routine 08/24/2024 2:24 PM EST POCT HECTOR-14 URINE DRUG SCREEN Routine 08/11/2024 9:13 AM EST Opioid type dependence, continuous (CMS/HCC) HEPATITIS PANEL, GENERAL Routine 03/08/2024 2:12 PM EDT Transaminitis LIPID PANEL, STANDARD Routine 03/08/2024 2:12 PM EDT Hypertriglyceridem ia HIV 1/2 ANTIGEN/ANTIBODY, FOURTH GENERATION W/RFL Routine 03/27/2022 10:14 AM EDT from Last 3 Months or Most Recently Relevant to Health Maintenance Results * POCT HECTOR-14 Urine Drug Screen (11/03/2024 9:17 AM EST) Only the most recent of4 resultswithin the time period is included. THC Negative Cocaine Screen, Urine Negative Opiate [...] OF CARE TEST ENTER/EDIT ORDERABLES Final Result * XR Chest 2 Views (10/26/2024 4:15 AM EST) Only the most recent of2 resultswithin the time period is included. Anatomical Region Laterality Modality Chest Radiographic Peggy ging 10/26/2024 4:15 AM EST Narrative 10/26/2024 4:16 AM EST ? [facility] ?[address] ?[place] [address] ?XRay Report ? Signed ? Patient: Carranza Flores,Cody ?MR#: [id number] ?? 901 ? : 1980 ?Acct:[id number] ? Age/Sex: 44 / M ?ADM Date: 02/20/25 ? Loc: HO.ED ? Attending Dr: ? Ordering Physician: Generic ED Physician ?? Date of Service: 10/26/24 ?? Procedure(s): XR chest 2V ?? Accession Number(s): [id number] ? cc: Rik Flaherty MD; Generic ED [...] in OV> ? 10/26/24 0416 ? DD/ ? TD/TT: 10/26/24414 ? Area Operations Manager: ? Procedure Note Donnahomy, Image - 10/26/[address] [address] XRay Report Signed Patient: Cody ShepardMR#: [id number] 901 : 1980Acct:[id number] Age/Sex: 44 / MADM Date: 10/26/24 Loc: HO.ED Attending Dr: Ordering Physician: Generic ED Physician Date of Service: 10/26/24 Procedure(s): XR chest 2V Accession Number(s): [id number] cc: Rik Flaherty MD; Generic ED Physician [...] MD in OV> 10/26/24415 DD/ 4 TD/TT: 10/26/24 0415 Area Operations Manager: [facility] External Provider IMG XR PROCEDURES Edited Result - Final * High Sensitivity Troponin I (10/26/2024 3:53 AM EST) Only the most recent of2 resultswithin the time period is included. TROPONIN I HIGH SENSITIVITY 4.9 <3.5 - 35.0 ng/L [facility] Comment:The Gillespie high sens itivity Troponin-I results should beused in conjunction with other diagnostic information suchas ECG, clinical observations and information, and patientsymptoms to aid in the diagnosis of KS. 10/26/2024 3:53 AM EST 10/26/2024 3:58 AM EST Generic External Data Provider LAB BLOOD ORDERAB LES Final Result [facility] [address] [place] [phone] * SARS-CoV-2 RNA, Influenza A/B, and RSV RNA, Ql NAAT (10/26/2024 3:53 AM EST) Only the most recent of2 resultswithin the time period is included. Influenza A PCR NEGATIVE Negative [facility] Influenza B PCR NEGATIVE Negative [facility] Resp Syncy Virus RNA Qual PCR NEGATIVE Negative [facility] SARS COV2 PCR NEGATIVE Negative [facility] Comment:All test results mus t [...] use by authorized laboratories.Testing performed on the [employer] GeneXpert utilizingreal-time RT-PCR.All SARS CoV2 and positive influenza A/B results arereported to [facility]. 10/26/2024 3:53 AM EST 10/26/2024 3:58 AM EST us Generic External Data Provider LAB MICROBIOLOGY - GENERAL ORDERABLES Final Result [facility] [address] [place] [address] [phone] * (ABNORMAL) CBC auto differential (10/26/2024 3:53 AM EST) Only the most recent of2 resultswithin the time period is included. White Blood Count 5.4 4.8 - 10.8 X10*3/uL [facility] Red Blood Count 4.78 4.60 - 5.80 X10*6/uL [facility] Hemoglobin 14.2 14.0 - 18.0 g/dl [facility] Hematocrit 40.6(L) 42.0 - 52.0 % [facility] Mean Corpuscular Volume 84.9 80.0 - 98.0 fL [facility] Mean Corpuscular Hemoglobin 29.7 27.0 - 33.0 pg [facility] Mean Corpuscular HGB Conc 35.0 31.0 - 36.0 g/dl [facility] Red Cell Distribution Width 11.9 11.0 - 16.0 % [facility] Platelet Count 158(L) 160 - 400 X10*3/uL [facility] Mean Platelet Volume 9.0(L) 9.4 - 12.4 fL [facility] Neutrophils Percent Auto 48.5 45 - 73 % [facility] Imm Gran Pct Auto 0.2 0.0 - 0.4 % [facility] Lymphocytes Percent Auto 34.7 20 - 40 % [facility] Monocytes Percent Auto 12.0(H) 2 - 11 % [facility] Eosinophils Percent Auto 3.7 0 - 4 % [facility] Basophils Percent Auto 0.9 0 - 2 % [facility] NRBC Pct Auto 0.0 0.0 - 0.2 /100WBC [facility] Neutrophils Absolute Auto 2.6 2.0 - 8.3 x10*3/uL [facility] Imm Gran Abs Auto 0.01 0.00 - 0.03 X10*3/uL [facility] Lymphocytes Absolute Auto 1.9 1.2 - 4.9 X10*3/uL [facility] Monocytes Absolute Auto 0.7 0.1 - 1.2 X10*3/uL [facility] Eosinophils Absolute Auto 0.2 0.0 - 0.4 X10*3/uL [facility] Basophils Absolute Auto 0.1 0.0 - 0.2 X10*3/uL [facility] NRBC Abs Auto 0.000 0.0 - 0.012 X10*3/uL [facility] 10/26/2024 3:53 AM EST 10/26/2024 3:58 AM EST us Generic External Data Provider LAB BLOOD ORDERAB LES Final Result [facility] [address] [place] [phone] [phone] * (ABNORMAL) Comprehensive Metabolic Panel (10/26/2024 3:53 AM EST) Only the most recent of2 resultswithin the time period is included. Sodium 142 135 - 145 mmol/L [facility] Potassium 4.1 3.3 - 5.1 mmol/L [facility] Chloride 108 96 - 108 mmol/L [facility] Carbon Dioxide 27 22 - 29 mmol/L [facility] Anion Gap 11(L) 12 - 20 [facility] Urea Nitrogen (BUN) 11 9 - 16 mg/dL [facility] Creatinine, Serum 0.85 0.5 - 1.4 mg/dL [facility] Creatinine Clr Calc Pharmacy 108.9 [facility] Comment:eGFR (calculated fro m the MDRD study equation) and eCrCl(calculated from the Cockcroft-Gault equation) are based ondifferent parameters and may not yield comparable results.If eCrCl result is absurd, please check patient'sheight/weight. Estimated Glomerular Filt Rate >60 [facility] Comment:Chronic Kidney Disea se: Estimated GFR < 60 mL/min/1.25t1Egkklz Kidney Disease: Estimated GFR < 15 mL/min/1.73m2 Glucose 114 60 - 115 mg/dL [facility] Calcium 9.1 8.4 - 10.2 mg/dL [facility] Bilirubin, Total 0.7 0.0 - 1.0 mg/dL [facility] Aspartate Amino Transferase 42(H) 5 - 37 U/L [facility] Alanine Aminotransferase 82(H) 0 - 40 U/L [facility] Total Protein 7.3 6.5 - 8.0 g/dL [facility] Albumin Level 3.8 3.5 - 5.0 g/dL [facility] Alkaline Phosphatase 63 39 - 117 U/L [facility] 10/26/2024 3:53 AM EST 10/26/2024 3:58 AM EST us Generic External Data Provider LAB BLOOD ORDERAB LES Final Result Performing Organization Address [facility] Co de Phone Number [facility] [address] [place] [phone] * Lipase (09/06/2024 9:13 PM EST) Lipase 32 8 - 78 U/L [facility] 09/06/2024 9:13 PM EST 09/06/2024 9:19 PM EST us Generic External Data Provider LAB BLOOD ORDERAB LES Final Result Performing Organization Address [facility] Co de Phone Number [facility] [address] [place] [phone] * XR CERVICAL SPINE 4V (08/24/2024 2:24 PM EST) Anatomical Region Laterality Modality Abdomen Radiographic Peggy ging 08/24/2024 2:24 PM EST Narrative 08/27/2024 10:15 AM EST ?[facility] ?[address] ?[place] [address] ?XRay Report ? Signed ? Patient: Carranza Flores,Cody ?MR#: [id number] ?? 901 ? : 1980 ?Acct:[id number] ? Age/Sex: 43 / M ?ADM Date: 08/24/24 ? Loc: HO.HHCX ? Attending Dr: Rik Flaherty MD ? Ordering Physician: Rik Flaherty MD ?? Date of Service: 08/24/24 ?? Procedure(s): XR cervical spine 4V ?? Accession Number(s): [id number] ? cc: Rik Flaherty MD ? EXAMINATION: ?? XR CERVICAL SPINE ? CLINICAL INFORMATION: ?? Neck pain ? COMPARISON: ?? None ? TECHNIQUE: ?? AP, lateral, both oblique, and open mouth odontoid views of the ?? cervical spine. ? FINDINGS: ?? Vertebral alignment is normal without spondylolisthesis. Vertebral body ?? heights are normal. No fractures are evident. ? Intervertebral disc heights are well-preserved. Uncovertebral joint ?? hypertrophy and mild endplate osteophyte formation is seen at C4/5 and ?? C5/6. Facet joints are unremarkable. No osseous neural foraminal ?? encroachment. ? Prevertebral soft tissues are normal. ? XR/XR cervical spine 4V ?? IMPRESSION: ?? Mild degenerative changes as described above. ? Electronically signed by: ??Fernandez Jackson MD ??08/27/2024 10:12 AM EST RP ? Dictated By: ?Fernandez Jackson MD ? Signed By: ?<Electronically signed by Fernandez Jackson MD in OV> ? 08/27/24 1012 ? DD/ 1424 ? TD/TT: 08/24/24 1445 ? Area Operations Manager: ? Procedure Note Caitie, Rodrigue - 08/27/2024 [facility] [address] [place] [address] XRay Report Signed Patient: Cody ShepardMR#: [id number] 901 : 1980Acct:[id number] Age/Sex: 43 / MADM Date: 08/24/24 Loc: HO.HHCX Attending Dr: Rik Flaherty MD Ordering Physician: Rik Flaherty MD Date of Service: 08/24/24 Procedure(s): XR cervical spine 4V Accession Number(s): [id number] cc: Rik Flaherty MD EXAMINATION: XR CERVICAL SPINE CLINICAL INFORMATION: Neck pain COMPARISON: None TECHNIQUE: AP, lateral, both oblique, and open mouth odontoid views of the cervical spine. FINDINGS: Vertebral alignment is normal without spondylolisthesis. Vertebral body heights are normal. No fractures are evident. Intervertebral disc heights are well-preserved. Uncovertebral joint hypertrophy and mild endplate osteophyte formation is seen at C4/5 and C5/6. Facet joints are unremarkable. No osseous neural foraminal encroachment. Prevertebral soft tissues are normal. XR/XR cervical spine 4V IMPRESSION: Mild degenerative changes as described above. Electronically signed by: Fernandez Jackson MD 08/27/2024 10:12 AM [facility] Dictated By: Fernandez Jackson MD Signed By: <Electronically signed by Fernandez Jackson MD in OV> 08/27/24 1012 DD/ 1424 TD/TT: 08/24/24 1445 Area Operations Manager: us Rik Bates MD IMG XR PROCEDURES Mo gabi Result - Final * Hepatitis A,B,C Profile (03/08/2024 2:12 PM EDT) Hepatitis A IgM NON-REAC TIVE Nonreactive [facility] Comment:For additional infor tarsha, please refer tohttp://education.[employer]/faq/CDP975(This link is being provided for informational/educational purposes only.)THIS TEST PERFORMED AT:[employer] [place] [phone] DIRECTOR: VIDYA ADAMS MD ~Hepatitis B Surface Antibody NON-REAC TIVE Nonreactive [facility] Comment:THIS TEST PERFORMED AT:[employer] [address] [phone] DIRECTOR: VIDYA ADAMS MD Hepatitis B Core Antibody NON-REAC TIVE Nonreactive [facility] Comment:For additional infor mation, please refer tohttp://[employer]/faq/EJA212(This link is being provided for informational/educational purposes only.)THIS TEST PERFORMED AT:[employer] [address] [phone] DIRECTOR: VIDYA ADAMS MD Hepatitis C Antibody NON-REAC TIVE Nonreactive [facility] Comment:HCV antibody was non -reactive. There is no laboratoryevidence of HCV infection.In most cases, no further action is required. However,if recent HCV exposure is suspected, a test for HCV RNA(test code 12513) is suggested.For additional information, please refer tohttp://[employer]/faq/EPY441(This link is being provided for informational/educational purposes only.)THIS TEST PERFORMED AT:[employer] [address] [phone] DIRECTOR: VIDYA ADAMS MD Hepatitis B Surface Ag NON-REAC TIVE Negative [facility] Comment:REFERENCE RANGE: NON -REACTIVEFor additional information, please refer tohttp://[employer]/faq/ABA892(This link is being provided for informational/educational purposes only.)THIS TEST PERFORMED AT:[employer] [address] [phone] DIRECTOR: VIDYA ADAMS MD Blood Venous blood specimen / Unknown 03/08/2024 2:12 PM EDT 03/08/2024 3:59 PM EDT Rik Bates MD LAB BLOOD ORDERABLES Final Result [facility] [address] [place] [phone] [phone] * (ABNORMAL) Lipid Panel, Standard (03/08/2024 2:12 PM EDT) Pathologist [facility] Triglycerides 240(H) <150 mg/dL [facility] Comment:Desirable Triglyceri de: less than 150 mg/dLBorderline High Triglyceride 150-199 mg/dLHigh Triglyceride: 200-499 mg/dLVery High Triglyceride: greater than or equal to 5OO mg/dL Cholesterol 261(H) <200 mg/dL [facility] Comment:Desirable Cholestero l: less than 200 mg/dLBorderline High Cholesterol: 200-239 mg/dLHigh Cholesterol: greater than 239 mg/dL LDL Cholesterol Calculated 178(H) <100 mg/dL [facility] Comment:Desirable LDL: less than 100 mg/dLNear Optimal/Above Optimal LDL: 110- 129 mg/dLBorderline High LDL: 130-159 mg/dLHigh LDL: 160-189 mg/dLVery High LDL: greater than or equal to 190 mg/dL HDL Cholesterol 35(L) >40 mg/dL [facility] Comment:Desirable HDL: great er than 40 mg/dL Note: This HDL assay may give artificially low results in patients with liver disease. Blood Venous blood specimen / Unknown 03/08/2024 2:12 PM EDT 03/08/2024 3:59 PM EDT us Rik Bates MD LAB BLOOD ORDERABLES Final Result [facility] [address] [place] [phone] [phone] * HIV 1/2 ANTIGEN/ANTIBODY,FOURTH GENERATION W/RFL (03/27/2022 10:14 AM EDT) HIV-1/2 ANTIGEN AND ANTIBODIES, 4TH GENERATION W/ REFLEX NON-REACT MARAH NON-REACT MARAH [facility] Comment: HIV-1 antigen and HIV-1/HIV-2 antibodies were not detected. There is no laboratory evidence of HIV infection. ?? PLEASE NOTE: This information has been disclosed to you from records whose confidentiality may be protected by state law. ??If your state requires such protection, then the state law prohibits you from making any further disclosure of the information without the specific written consent of the person to whom it pertains, or as otherwise permitted by law. A general authorization for the release of medical or other information is NOT sufficient for this purpose. ? For additional information please refer to http://education.Gratafy/faq/XDC596 (This link is being provided for informational/ educational purposes only.) ? The performance of this assay has not been clinically validated in patients less than 2 years old. ?? 03/27/2022 10:1 4 AM EDT us Merritt Germain MD LAB BLOOD ORDERABLES Final Res ult [facility] [address] from Last 3 Months or Most Recently Relevant to Health Maintenance [place] [place] [address] - [employer] Care Teams Bag Maker Relationship Specialty Start Date End Date Rik Bearden MD [address] [place] [phone] PCP - General Internal Medicine 06/18/15
== END 2024-11-06 15:44 | disposition home or self-care (01) ==
PROVIDERS: PCP Internal Medicine; Visit Provider Nurse Practitioner Family
DX: R07.89 Other chest pain (principal); F41.9 Anxiety disorder, unspecified; R00.2 Palpitations
CPT/HCPCS: 99213; G2211

== ENCOUNTER → 2024-11-06 14:32 | Outpatient (BNVA) | payer OTHER, SELFPAY | PROVIDERS: PCP Internal Medicine; Visit Provider Nurse Practitioner Family | DX: R07.89 Other chest pain (principal); R00.2 Palpitations; F41.9 Anxiety disorder, unspecified; Z73.6 Limitation of activities due to disability | CPT/HCPCS: 99212 ==

== ENCOUNTER 2024-12-10 15:48 | Emergency (ER) | payer OTHER, SELFPAY ==
[2024-12-10 16:01] VITALS: BP 132/85; PULSE 60; RESP 18; TEMP 36.5; O2SAT 97; BMI 27.9
--- NOTE | 2024-12-10 16:02 | ED.GENADULT ---
HPI - General Adult General Chief complaint: Abdominal Pain Stated complaint: abd pain Time Seen by Provider: 12/10/24 18:34 Source: patient Limitations: no limitations History of Present Illness HPI narrative: 44-year-old male who reports a history of Crohn's disease, presents for evaluation of upper abdominal pain. Patient states since it has been going on for approximately 2 weeks. They have been waxing and waning. He has had similar episodes in the past. He was supposed to be on omeprazole and Carafate however he has not been taking them recently. He denies any alcohol use, no NSAID use. Patient had received IV infusions for his Crohn's disease previously and was well controlled. He is tolerating p.o. without difficulty and has not had any nausea or vomiting. No diarrhea. Patient states his bowel movements are intermittent. He last moved his bowels earlier today. Patient is currently on Suboxone and compliant with this medication. He denies any fevers or chills. No Tylenol use. He is scheduled to see his GI doctor but does not recall the date. Related Data Home Medications ?Medication ?Instructions ?Recorded ?Confirmed bupropion HCl 150 mg 24 hr tablet, 150 mg PO QAM 06/04/20 11/06/24 extended release buprenorphine 8 mg-naloxone 2 mg 10 mg sublingual DAILY 06/12/22 11/06/24 sublingual film mirtazapine 15 mg tablet 15 mg PO BEDTIME 03/10/23 11/06/24 duloxetine 60 mg capsule,delayed 60 mg PO DAILY 12/09/23 11/06/24 release hydroxyzine HCl 25 mg tablet 25 mg PO BID 05/30/24 11/06/24 sertraline 25 mg tablet 25 mg PO DAILY 05/30/24 11/06/24 Previous Rx's ?Medication ?Instructions ?Recorded acetaminophen 500 mg tablet 500 mg PO Q6H PRN fever or pain 03/08/23 (Tylenol Extra Strength) #14 tabs calcium polycarbophil 625 mg 1,250 mg (2 x 625 mg) PO DAILY 30 07/14/23 tablet (Fiber Laxative (calcium days #60 tabs polycarbophil)) lactulose 20 gram/30 mL oral 20 g (30 mL) PO DAILY PRN 08/14/23 solution constipation #1,200 mL gabapentin 100 mg capsule 200 mg (2 x 100 mg) PO BEDTIME 30 01/10/24 days #60 caps mesalamine 0.375 gram 1.5 g (4 x 0.375 gram) PO DAILY 04/17/24 capsule,extended release 24 hr #360 caps testosterone 4 pump topical DAILY 30 days #150 06/27/24 grams docusate sodium 100 mg capsule 100 mg PO BID #90 caps 07/07/24 (Colace) sucralfate 100 mg/mL oral 10 ml PO QID #1,000 mL 09/12/24 suspension omeprazole 20 mg capsule,delayed 20 mg PO BID 90 days #180 caps 10/09/24 release fluticasone fur. 200 mcg-umeclid 1 inh inhalation DAILY 30 days #60 10/13/24 62.5 mcg-vilant 25 mcg ea inhalat.powder (Trelegy Ellipta) prednisone 20 mg tablet See Rx Instructions PO DAILY 10 10/13/24 days #15 tabs sucralfate 1 gram tablet 1 g PO BEDTIME #90 tabs 11/06/24 polyethylene glycol 3350 17 17 g PO DAILY constipation #119 12/10/24 gram/dose oral powder (Miralax) grams Allergies Allergy/AdvReac Type Severity Reaction Status Date / Time shellfish derived Allergy Intermediate Rash Verified 12/10/24 16:05 Review of Systems Constitutional: Constitutional: Denies chills and Denies fever(s) Cardiovascular: Cardiovascular: Denies chest pain, Denies palpitations, Denies dyspnea, Denies dyspnea on exertion and Denies orthopnea Respiratory: Respiratory: Denies cough, Denies dyspnea and Denies dyspnea on exertion Gastrointestinal: Gastrointestinal: Reports abdominal pain, Denies melena, Denies hematochezia, Denies diarrhea, Denies nausea and Denies vomiting Genitourinary: Genitourinary: Denies difficulty urinating, Denies dysuria and Denies urinary urgency Musculoskeletal: Musculoskeletal: Denies back pain, Denies muscle weakness and Denies numbness Integumentary/Breasts: Skin/Breast: Denies rash Neurologic: Denies focal weakness and Denies numbness Psychiatric: Psychiatric: Denies depression Endocrine: Endocrine: Denies palpitations PMFSH Past Medical History Medical History Hypogonadism, testicular Hilar lymphadenopathy Fibromyalgia GERD (gastroesophageal reflux disease) Scrotal pain Rhinosinusitis 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 Mother No problems noted. Paternal Aunt Lung cancer Social History Social History Alcohol intake: never Patient Tobacco Use Status: Former Tobacco user Tobacco use type: Cigarette Years Smoked: 23 Years e-Cigarette/Vaping Use: Currently Using Advance Directives: No Advance Directives Information Provided: Yes Current occupational status: disabled Physical Exam ED Vital Signs: Vital Signs - 24 hr 12/10/24 16:01 Temperature 97.7 F Pulse Rate 60 Respiratory Rate 18 Blood Pressure 132/85 Pulse Oximetry 97 BMI result Body Mass Index 27.9 Const General: cooperative, healthy appearing, alert and awake Neck Neck: Yes full ROM Resp Auscultation: clear to auscultation bilaterally Cardio Rate: regular rate Rhythm: regular rhythm GI Other: mild epigastric tenderness. There is no May's sign. No peritoneal signs. No CVAT. No guarding. Course Course Course Narrative: RME performed by Farhana Monteiro PA-C. Patient is a 44 year old assigned male at presenting to the emergency department with abdominal pain and neck pain. Patient states that over the last few days he has had abdominal and neck pain. Detailed physical exam and review of systems are deferred to the calibrator barometers. Labs and swabs ordered. Patient placed back in the waiting room pending room availability and results. Medical Decision Making Medical Decision Making MDM Narrative: 44-year-old male with a history of Crohn's disease, presents for evaluation of upper abdominal pain. He is hemodynamically stable and afebrile. He reports mild discomfort at this time, as well as mild tenderness in the epigastric region in the exam. Labs are reassuring, there are no leukocytosis. Patient does have slight elevation in his LFTs which he has already been aware of. Patient states he has been told this in the past and could be related to the patient's Suboxone use. He does have regular lab draws at his Suboxone clinic. Some constipation, which could also be contributing to from his Suboxone use. Patient does not feel that this is a issue as he last moved his bowels today but again he at times may have difficulty. Discussed with the patient about additional imaging such as with CT or x-ray, however the patient has refused at this time. Patient would like to follow up with his GI doctor and will call tomorrow for an earlier appointment. In addition, patient confirms that he is not taking his omeprazole or care feet on a regular basis. I have discussed with the patient that he should resume these as directed. In addition we will trial MiraLax to help regulate bowel movements. Reviewed all discharge instructions. No further questions at this time. Differential Diagnosis Differential Diagnoses: The differential diagnosis associated with the presentation includes Bowel obstruction Dyspepsia Crohn's flare Dehydration Metabolic abnormality Admission/Observation Consideration of admission/observation: Escalation of care including admission/observation considered Lab Data MDM Lab Attestation statement: I reviewed the patient's lab results. 12/10/24 16:22 12/10/24 16:22 Labs: Lab Results 12/10/24 Range/Units 16:22 WBC 4.2 L (4.8-10.8) X10*3/uL RBC 5.01 (4.60-5.80) X10*6/uL Hgb 14.6 (14.0-18.0) g/dl Hct 40.8 L (42.0-52.0) % MCV 81.4 (80.0-98.0) fL MCH 29.1 (27.0-33.0) pg MCHC 35.8 (31.0-36.0) g/dl RDW 12.2 (11.0-16.0) % Plt Count 205 D (160-400) X10*3/uL MPV 9.2 L (9.4-12.4) fL Immature Gran % (Auto) 0.0 (0.0-0.4) % Neut % (Auto) 45.2 (45-73) % Lymph % (Auto) 39.4 (20-40) % [place] % (Auto) 8.5 (2-11) % Eos % (Auto) 5.0 H (0-4) % Baso % (Auto) 1.9 (0-2) % Lymph # (Auto) 1.7 (1.2-4.9) X10*3/uL [place] # (Auto) 0.4 (0.1-1.2) X10*3/uL Eos # (Auto) 0.2 (0.0-0.4) X10*3/uL Baso # (Auto) 0.1 (0.0-0.2) X10*3/uL Abs Immat Gran (auto) 0.00 (0.00-0.03) X10*3/uL Absolute Neuts (auto) 1.9 L (2.0-8.3) x10*3/uL Absolute Nucleated RBC 0.000 (0.0-0.012) X10*3/uL Nucleated RBC % (auto) 0.0 (0.0-0.2) /100WBC Sodium 143 (135-145) mmol/L Potassium 4.1 (3.3-5.1) mmol/L Chloride 108 (96-108) mmol/L Carbon Dioxide 27 (22-29) mmol/L Anion Gap 12 (12-20) BUN 13 (9-16) mg/dL Creatinine 0.88 (0.5-1.4) mg/dL Estim Creat Clear Calc 105.5 Estimated GFR > 60 Random Glucose 99 (60-115) mg/dL Calcium 8.9 (8.4-10.2) mg/dL Magnesium 2.1 (1.6-2.6) mg/dL Total Bilirubin 0.6 (0.0-1.0) mg/dL AST 54 H (5-37) U/L ALT 107 H (0-40) U/L Alkaline Phosphatase 67 (39-117) U/L Total Protein 7.2 (6.5-8.0) g/dL Albumin 3.9 (3.5-5.0) g/dL Urine Color Dark Yellow Urine Appearance Clear Urine pH 5.5 (5.0-9.0) Ur Specific [place] >= 1.030 H (1.005-1.025) Urine Protein Negative (Neg-Trace) mg/dL Urine Glucose (UA) Negative (Negative) mg/dL Urine Ketones Trace (Negative) mg/dL Urine Blood Negative (Negative) Urine Nitrite Negative (Negative) Ur Leukocyte Esterase Negative (Negative) Influenza Type A (PCR) NEGATIVE (Negative) Influenza Type B (PCR) NEGATIVE (Negative) RSV RNA Qual (PCR) NEGATIVE (Negative) SARS-CoV-2 RNA (RT-PCR) NEGATIVE (Negative) Discharge Plan Discharge Clinical Impression: Abdominal pain, epigastric Patient Disposition: Home, Self-Care Instructions: Constipation (ED), Abdominal Pain (ED) Additional Instructions: As discussed, Drink plenty of water. Restart taking again your omeprazole and sulcralfate, as directed. MiraLax as directed to help with constipation. Follow up with your GI doctor, call to schedule sooner appointment. As discussed, Your liver tests were slightly elevated today. this could be related to your Suboxone use. These should be rechecked by your primary care provider. Call to schedule follow up appointment. Avoid medications that contain acetaminophen, Tylenol Follow-up with your primary care provider. Call this week to schedule a follow-up appointment. Return to the emergency department if you have any worsening of symptoms, or any concerns. Get well soon! Prescriptions: New polyethylene glycol 3350 [Miralax] 17 gram/dose powder 17 g PO DAILY Qty: 119 0RF No Action mesalamine 0.375 gram capsule,extended release 24hr 1.5 g PO DAILY Qty: 360 0RF testosterone 20.25 mg/1.25 gram (1.62 %) gel in metered-dose pump 4 pump topical DAILY 30 Days Qty: 150 4RF Rx Instructions: apply 2 pump amount over max area of EACH upper arm and shoulder sucralfate 100 mg/mL suspension 10 ml PO QID Qty: 1000 0RF omeprazole 20 mg capsule,delayed release(DR/EC) 20 mg PO BID 90 Days Qty: 180 0RF sucralfate 1 gram tablet 1 g PO BEDTIME Qty: 90 0RF lactulose 20 gram/30 mL solution 20 g PO DAILY PRN (Reason: constipation) Qty: 1200 0RF acetaminophen [Tylenol Extra Strength] 500 mg tablet 500 mg PO Q6H PRN (Reason: fever or pain) Qty: 14 0RF bupropion HCl 150 mg tablet extended release 24 hr 150 mg PO QAM buprenorphine-naloxone 8-2 mg film 10 mg sublingual DAILY prednisone 20 mg tablet See Rx Instructions PO DAILY 10 Days Qty: 15 0RF Rx Instructions: PO daily; Take 2 tabs daily x 5 days, then 1 tablet daily x 5 days Trelegy Ellipta 200-62.5-25 mcg blister with device 1 inh inhalation DAILY 30 Days Qty: 60 12RF mirtazapine 15 mg tablet 15 mg PO BEDTIME calcium polycarbophil [Fiber Laxative (ca polycarbo)] 625 mg tablet 1,250 mg PO DAILY 30 Days Qty: 60 3RF duloxetine 60 mg capsule,delayed release(DR/EC) 60 mg PO DAILY gabapentin 100 mg capsule 200 mg PO BEDTIME 30 Days Qty: 60 6RF sertraline 25 mg tablet 25 mg PO DAILY hydroxyzine HCl 25 mg tablet 25 mg PO BID docusate sodium [Colace] 100 mg capsule 100 mg PO BID Qty: 90 2RF Referrals: Hung Engel MD [Physician] - 2 weeks (epigastric pain) Print Language: Namibian
[2024-12-10 16:27] LABS: MANUAL DIFF FLAG NO
[2024-12-10 16:29] LABS: Basophils Absolute Auto 0.1 X10*3/uL (0.0-0.2); Basophils Percent Auto 1.9 % (0-2); Eosinophils Absolute Auto 0.2 X10*3/uL (0.0-0.4); Hematocrit 40.8 % (42.0-52.0); Hemoglobin 14.6 g/dl (14.0-18.0); Lymphocytes Absolute Auto 1.7 X10*3/uL (1.2-4.9); Lymphocytes Percent Auto 39.4 % (20-40); Mean Corpuscular HGB Conc 35.8 g/dl (31.0-36.0); Mean Corpuscular Hemoglobin 29.1 pg (27.0-33.0); Mean Corpuscular Volume 81.4 fL (80.0-98.0); Mean Platelet Volume 9.2 fL (9.4-12.4); Monocytes Absolute Auto 0.4 X10*3/uL (0.1-1.2); Monocytes Percent Auto 8.5 % (2-11); Neutrophils Absolute Auto 1.9 x10*3/uL (2.0-8.3); Neutrophils Percent Auto 45.2 % (45-73); Platelet Count 205 X10*3/uL (160-400); Red Blood Count 5.01 X10*6/uL (4.60-5.80); Red Cell Distribution Width 12.2 % (11.0-16.0); White Blood Count 4.2 X10*3/uL (4.8-10.8)
[2024-12-10 16:30] LABS: Appearance Urine Clear; Color Urine Dark Yellow; Glucose Urine UA Negative (Negative); Leukocyte Esterase Urine Negative (Negative); Nitrite Urine Negative (Negative); PH 5.5 (5.0-9.0); Specific Gravity - Urine >= 1.030 (1.005-1.025); Urine Blood Negative (Negative); Urine Ketones Trace mg/dL (Negative); Urine Protein Negative (Neg-Trace)
[2024-12-10 17:00] LABS: Alanine Aminotransferase 107 U/L (0-40); Albumin Level 3.9 g/dL (3.5-5.0); Alkaline Phosphatase 67 U/L (39-117); Anion Gap 12 (12-20); Aspartate Amino Transferase 54 U/L (5-37); Bilirubin Total 0.6 mg/dL (0.0-1.0); Blood Urea Nitrogen 13 mg/dL (9-16); Calcium 8.9 mg/dL (8.4-10.2); Carbon Dioxide 27 mmol/L (22-29); Chloride 108 mmol/L (96-108); Creatinine Clr Calc Pharmacy 105.5; Estimated Glomerular Filt Rate > 60; Glucose Random 99 mg/dL (60-115); Magnesium 2.1 mg/dL (1.6-2.6); Potassium 4.1 mmol/L (3.3-5.1); Sodium 143 mmol/L (135-145); Total Protein 7.2 g/dL (6.5-8.0)
[2024-12-10 17:06] LABS: Influenza A PCR NEGATIVE (Negative); Influenza B PCR NEGATIVE (Negative); Resp Syncy Virus RNA Qual PCR NEGATIVE (Negative); SARS COV2 PCR INHOUSE NEGATIVE (Negative)
--- OUTSIDE RECORDS SUMMARY | 2024-12-10 17:50 | XMS_ITS | Clinical Summary ---
Author Organization [facility] [place] [address] Care Team Providers Care Litigation Partner Name Role Phone Unavailable Primary Care Provider [...]
--- OUTSIDE RECORDS SUMMARY | 2024-12-10 17:51 | XMS_ITS | Data Portability ---
Author Organization [facility] [place] [facility] Address [address] [place] [phone] Care Team Providers Care Blackener Name Role Phone HIM CCA OTHER Assessment Encounter Date Assessment Date Assessment LastModified by Organization Details LastModified Time 02/02/2024 02/02/2024 I have reviewed and agree with the assessment and plan as documented by the disability case manager. I provided real-time medical direction for this encounter and was immediately available to provide additional phone-based assistance as needed. 43M presenting with chest discomfort today. Patient was seen in [facility] yesterday for similar symptoms. He had full [...] None recorded. Imaging electrocard iogram [email or web address], [address] [place], [phone] 1 14:44:28 Medication Orders None recorded. Patient TargetsNo targets recorded. Patient InstructionsNo instructions recorded. Reason for Referral None Reported. Results Created Date Observation Date Name Description Value Unit Range Abnormal Flag Note LastModifiedBy Organization Detail LastModifiedTime 09/20/19 25 elect dieter carr am No observ ation record ed. [email or web address] [place] [address], [phone] 09/20/2024 14:44:27 Result Notes None recorded. Procedures Surgical History None recorded. Imaging Results Imaging Date Name Status LastModified by Organization Details LastModified Time 09/20/2024 electrocardiogram completed [address], [phone] 09/20/2024 14:44:27 Procedure Notes None recorded. Medical Equipment None Reported. Allergies Allergen ID Allergen Name Allergen Category Reaction Reaction Severity Criticality Documentation Date Start Date Code Code System Note Provider Name and Address Organization Details Recorded Time 19067 acetamino phen / oxycodone medicatio n Not available Not available Not available 09/20/2024 92694 3 RxNorm Not Available [facility] - production [...] [degF] 121 mm[Hg] 71 mm[Hg] Not Available [facility] - production 4 19:54:38 Date Recorded Body temperature Heart rate Respiratory rate Oxygen saturation Oxygen saturation in Arterial blood by Pulse oximetry Systolic blood pressure Diastolic blood pressure Provider Name and Address Organization Details Last Updated DateTime 5 99.3 [degF] 65 /min 18 /min 97 % 97 % 139 mm[Hg] 81 mm[Hg] Not Available [facility] - production 5 14:26:35 Social History None recorded. Functional Status None recorded. Mental Status None recorded. Family History Nothing Reported. Medical History No medical history recorded. Past Encounters Encounter ID Performer Location Encounter Start Date Encounter Closed Date Diagnosis/Indication Diagnosis SNOMED-CT Code Diagnosis ICD10 Code Diagnosis Note [id number] Lynda Camacho MD [facility] [address] [place] [address] 02/02/2024 19:54:27 02/03/2024 10:33:21 Heartburn [id number] R12 [id number] Jessica Nobles MD [facility] [address] [place] [address] 09/20/2024 13:54:48 09/20/2024 18:50:35 Dyspnea [id number] R06.00 Evaluation in the field was performed by my disability case manager colleague, as noted above, I provided real-time [...] but pt not made dietary changes. On disability case manager eval VS wnl (temp 99.3F not c/w [...] Reece Member ID Guarantor Name 02/02/2024 1 [facility] - DOS ON OR AFTER 2022 - DUAL ELIGIBLE - JAIL OPTIONS AND ONE CARE (MEDICARE REPLACEMENT/ADV ANTAGE - HMO) Cody Carranza [id number] Cody Carranza 09/20/2024 1 [facility] - DOS ON OR AFTER 2022 - DUAL ELIGIBLE - JAIL OPTIONS AND ONE CARE (MEDICARE REPLACEMENT/ADV ANTAGE - HMO) Cody Tere [id number] Cody Carranza Notes Date Note Type Note [...] pain. Speaking full sentences without labored breathing. Orthopaedic Physician Assistant POC Test Results from Tom Wagner - [facility] EKG (1) [20:07] EKG test performed. Attachments uploaded as part of this test result can be found under Documents section. ................... ................... ................... ................... ................... ................... ................... ........ Orthopaedic Physician Assistant Note From Tom Wagner: Encountered patient, conscious alert and ambulatory with family present. Patient states that he has been experiencing substernal chest discomfort, which he describes as a mild burning sensation, that begins from the bottom of a sternum and travels down to his umbilical region. Patient states that he was seen at [facility] yesterday where bloodwork was done as well [...] noted to be eating a cheeseburger with nigerien fries upon contact.Skin warm, dry and of appropriate color for ethnicity. Head and neck, free of trauma and edema. -JVD. Breath sounds present, clear and equal bilaterally. Abdomen is soft, non-tender and non-distended. Extremities are free of trauma and edema. 12 Lead EKG performed, sinus bradycardia noted with no present ectopy ; non-diagnostic for acute STEMI. [facility] contacted: expresses patient symptoms are likely due to his Gerd. Given patients complaints and 12 lead EKG presentation, [facility] is not convinced that patient? s symptoms [...] ................... ................... ................... ................... ................... ........ Disposition: Israel Camacho MD [address] [place] [address],[address], [place], [phone], [employer] 02/02/2024 21:13:45 09/20/2024 text/html CRC Nurse Triage Notes (Jonah Dennis - JAMSHID): [...] PMH: Chronic Back Pain PMH Reviewed at 09/20/2024: Allergies Reviewed at 09/20/2024:45 Comments: Production Line verified the Pt.'s name//address and phone number. [...] in. Denies taking over the counter medication. Orthopaedic Physician Assistant Organization Information for Herminia Garcia Agustin [facility] Business Legal Name: [employer]? Address: [address] [place] [address], [employer] Attendant: Wilder Branham MD CLIA No.: [id number] Orthopaedic Physician Assistant POC Test Results from Herminia Garcia EKG (14:26:42) EKG test performed. Attachments uploaded as part of this test result can be found under Documents section. ................... ................... ................... ................... ................... ................... ................... ........ Orthopaedic Physician Assistant Note From Herminia Garcia: Sent to a [...] warm, dry; 12 lead ECG: uploaded to [employer]. Pt is reassured of stable condition. Pt advised to follow up with PCP and continue working to find a therapist. Red flags discussed. Pt has no further questions. ................... ................... ................... ................... ................... ................... ................... ........ [facility] Consulted: Jessica Nobles ................... ................... ................... ................... ................... ................... ................... ........ Disposition: Fulfilled Jessica Nobles MD [address] [place] [address],[address], [place], [phone], INNA ARTHUR 09/20/2024 15:41:18
[2024-12-10 18:58] VITALS: BP 130/75; PULSE 65; RESP 18; TEMP 36.5; O2SAT 97
[2024-12-10 19:05] VITALS: BP 130/75; PULSE 65; RESP 18; TEMP 36.5; O2SAT 97
== END 2024-12-10 19:06 | disposition home or self-care (01) ==
PROVIDERS: Physician Assistant Medical; Emergency Provider Internal Medicine; PCP Internal Medicine
DX: R10.13 Epigastric pain (principal); K59.00 Constipation, unspecified; Z03.818 Encounter for observation for suspected exposure to other biological agents ruled out; R05.9 Cough, unspecified
CPT/HCPCS: 0241U; 80053; 81003; 83735; 85025; 99283; 99284

== ENCOUNTER 2024-12-13 15:29 | Outpatient (REF) | payer OTHER, SELFPAY ==
--- NOTE | ~2024-12-13 | XR_ITS ---
EXAMINATION: XR ABDOMEN 1 VIEW (KUB) HISTORY: abdominal pain COMPARISON: Comparison is made with the prior examination dated 08/13/2023. FINDINGS: Three supine views of the abdomen are submitted. The bowel gas pattern is unremarkable, without evidence of mechanical obstruction. There are phleboliths in the pelvis. There are no abnormal soft tissue masses. The bones are intact. XR/XR KUB IMPRESSION: Unremarkable bowel gas pattern. Electronically signed by: Shyam Lopez MD 12/13/2024 03:50 PM EDT
--- OUTSIDE RECORDS SUMMARY | 2024-12-13 17:26 | XMS_ITS | Data Portability ---
Author Organization [employer] [facility], Co in - Formerly [facility] Address [address] [place] [phone] Care Team Providers Care Insert Operator Name Role Phone HIM CCA OTHER Assessment Encounter Date Assessment Date Assessment LastModified by Organization Details LastModified Time 02/02/2024 02/02/2024 I have reviewed and agree with the assessment and plan as documented by the material handler 1st shift. I provided real-time medical direction for this encounter and was immediately available to provide additional phone-based assistance as needed. 43M presenting with chest discomfort today. Patient was seen in [facility] yesterday for similar symptoms. He had [...] None recorded. Imaging electrocard iogram [email or web address], [address] [place], [phone] 4 14:44:28 Medication Orders None recorded. Patient TargetsNo targets recorded. Patient InstructionsNo instructions recorded. Reason for Referral None Reported. Results Created Date Observation Date Name Description Value Unit Range Abnormal Flag Note LastModifiedBy Organization Detail LastModifiedTime 09/20/19 25 elect dieter carr am No observ ation record ed. [email or web address] [place] [address], [phone] 09/20/2024 14:44:27 Result Notes None recorded. Procedures Surgical History None recorded. Imaging Results Imaging Date Name Status LastModified by Organization Details LastModified Time 09/20/2024 electrocardiogram completed [address], [phone] 09/20/2024 14:44:27 Procedure Notes None recorded. Medical Equipment None Reported. Allergies Allergen ID Allergen Name Allergen Category Reaction Reaction Severity Criticality Documentation Date Start Date Code Code System Note Provider Name and Address Organization Details Recorded Time 84940 acetamino phen / oxycodone medicatio n Not available Not available Not available 09/20/2024 09298 3 RxNorm Not Available [facility] - production [...] SNOMED-CT Code Diagnosis ICD10 Code Diagnosis Note [id number] Lynda Camacho MD Main - [facility] [address] [place] [phone] 02/02/2024 19:54:27 02/03/2024 10:33:21 Heartburn 51698071 R12 [id number] Jessica Nobles MD Main - [facility] [address] [place] [address] 09/20/2024 13:54:48 09/20/2024 18:50:35 Dyspnea [id number] R06.00 Evaluation in the field was performed by my material handler 1st shift colleague, as noted above, I provided real-time [...] but pt not made dietary changes. On material handler 1st shift eval VS wnl (temp 99.3F not c/w [...] Reece Member ID Guarantor Name 02/02/2024 1 [facility] - DOS ON OR AFTER 2022 - DUAL ELIGIBLE - [employer]CI OPTIONS AND ONE CARE (MEDICARE REPLACEMENT/ADV ANTAGE - HMO) Cody Carranza [id number] Cody Carranza 09/20/2024 1 [facility] - DOS ON OR AFTER 2022 - DUAL ELIGIBLE - [employer]CI OPTIONS AND ONE CARE (MEDICARE REPLACEMENT/ADV ANTAGE - HMO) Cody Tere [id number] Cody Carranza Notes Date Note Type Note [...] pain. Speaking full sentences without labored breathing. Mural Painter POC Test Results from Tom Wagner - [facility] EKG (1) [20:07] EKG test performed. Attachments uploaded as part of this test result can be found under Documents section. ................... ................... ................... ................... ................... ................... ................... ........ Mural Painter Note From Tom Wagner: Encountered patient, conscious alert and ambulatory with family present. Patient states that he has been experiencing substernal chest discomfort, which he describes as a mild burning sensation, that begins from the bottom of a sternum and travels down to his umbilical region. Patient states that he was seen at [facility] yesterday where bloodwork was done as well [...] noted to be eating a cheeseburger with turkish fries upon contact.Skin warm, dry and of appropriate color for ethnicity. Head and neck, free of trauma and edema. -JVD. Breath sounds present, clear and equal bilaterally. Abdomen is soft, non-tender and non-distended. Extremities are free of trauma and edema. 12 Lead EKG performed, sinus bradycardia noted with no present ectopy ; non-diagnostic for acute STEMI. [facility] contacted: expresses patient symptoms are likely due to his Gerd. Given patients complaints and 12 lead EKG presentation, [facility] is not convinced that patient? s symptoms [...] ................... ................... ........ Disposition: Israel Camacho MD [address] [place] [address],[address], [place], [phone], [employer] 02/02/2024 21:13:45 09/20/2024 text/html CRC Nurse Triage [...] at 09/20/2024: Allergies Reviewed at 09/20/2024:45 Comments: Engineering Project Manager verified the Pt.'s name//address and phone number. [...] in. Denies taking over the counter medication. Mural Painter Organization Information for Herminia Garcia Agustin [facility] Business Legal Name: [employer]? Address: [address] [place] [address], Personnel Consultant: Wilder Branham MD CLIA No.: [id number] Mural Painter POC Test Results from Herminia Garcia EKG (14:26:42) EKG test performed. Attachments uploaded as part of this test result can be found under Documents section. ................... ................... ................... ................... ................... ................... ................... ........ Mural Painter Note From Herminia Garcia: Sent to a [...] warm, dry; 12 lead ECG: uploaded to [employer]. Pt is reassured of stable condition. Pt advised to follow up with PCP and continue working to find a therapist. Red flags discussed. Pt has no further questions. ................... ................... ................... ................... ................... ................... ................... ........ [facility] Consulted: Jessica Nobles ................... ................... ................... ................... ................... ................... ................... ........ Disposition: Fulfilled Jessica Nobles MD [address] [place] [address],[address], [place], [phone], INNA ARTHUR 09/20/2024 15:41:18
--- OUTSIDE RECORDS SUMMARY | 2024-12-13 17:26 | XMS_ITS | Clinical Summary ---
Author Organization [facility] [place] [address] Care Team Providers Care Inspector Dials Name Role Phone Unavailable Primary Care Provider [...] - 2023-2 5 season) 2024 Influenza Vaccine (Season Ended) 2025 HIB Vaccines Aged Out No longer eligi [...] age to complete this topic Meningococcal B Vaccine Aged Out No l onger eligible based on patient's age to complete [...]
== END 2024-12-13 15:30 | disposition home or self-care (01) ==
LOC: HO.HHCX 15:29
PROVIDERS: Visit Provider Nurse Practitioner
DX: R19.8 Other specified symptoms and signs involving the digestive system and abdomen (principal)
CPT/HCPCS: 74018

== ENCOUNTER → 2024-12-13 15:31 | Outpatient (BNV) | payer OTHER, SELFPAY | PROVIDERS: Visit Provider Radiology Diagnostic Radiology | DX: R10.9 Unspecified abdominal pain (principal) | CPT/HCPCS: 74018 ==

== ENCOUNTER 2024-12-26 13:13 | Outpatient (REF) | payer OTHER, SELFPAY ==
[2024-12-26 13:41] LABS: Hematocrit 40.2 % (42.0-52.0)
[2024-12-26 14:03] LABS: Alanine Aminotransferase 97 U/L (0-40); Albumin Level 4.1 g/dL (3.5-5.0); Alkaline Phosphatase 64 U/L (39-117); Aspartate Amino Transferase 41 U/L (5-37); Bilirubin Direct 0.1 mg/dL (0.0-0.5); Bilirubin Total 0.6 mg/dL (0.0-1.0)
--- OUTSIDE RECORDS SUMMARY | 2024-12-26 15:44 | XMS_ITS | Encounter Summary ---
Author Organization [employer] Address [address] [place] [address] Care Team Providers Care Rehab Director Occupational Therapist Name Role Phone Rik Bearden MD Primary Care Provide r Reason for Visit * Reason Onset Date Comments Med Refill 11/01/2023 Encounter Details Date Type Department Care Team ([facility] st Contact Info) Description 11/01/2023 Telephone [facility] [address] [place] [address] Rik Bearden MD [address] [place], [place] [phone] Med Refill Social History Tobacco Use Types [...] encounter Miscellaneous Notes * Telephone Encounter - Michellegenodeonsamantha Jeremy Ann - 11/01/2023 4:26 PM EST TC from pt requesting medication refill. Medications needing refill : Buprenorphine HCl-Naloxone HCl (Suboxone) 8-2 MG SL film To be sent to: [facility]/pharmacy #[id number] [place] [address] - [address] [place] [address] documented in this encounter Plan of Treatment Upcoming Encounters Date Type Department Care Team (Late st Contact Info) Description 12/29/2024 10:00 AM EDT Clinical Support [facility] [address] [place] [phone] Nicole Rubio RN 01/09/2025 10:30 AM EDT Office Visit [facility] [address] [place] [address] Rik Bearden MD [address] [place] [address] [phone] 01/26/2025 9:30 AM EDT Office Visit [facility] [address] [place] [phone] Merritt Germain MD [address] [place] [phone] documented as of this encounter Visit Diagnoses Not on filedocumented in this encounter Care Teams Rehab Director Occupational Therapist Relationship Specialty Start Date End Date Rik Bearden MD [address] [place] [phone] PCP - General Internal Medicine 06/18/15 documented as of this encounter
--- OUTSIDE RECORDS SUMMARY | 2024-12-26 15:44 | XMS_ITS | Encounter Summary ---
Author Organization [employer] Address [address] 7[address] [place] [address] Care Team Providers Care Bisque Brusher Name Role Phone Rik Bearden MD Primary Care Provide r Reason for Visit * Reason Onset Date Comments Med Refill 12/26/2024 Encounter Details Date Type Department Care Team (Late st Contact Info) Description 12/26/2024 Refill [facility] [address] [place] [address] Nicole Rubio, JAMSHID Uncomplicated opioid dependence (CMS/HCC) Social History Tobacco Use Types Packs/Day Years Used Date Smoking Tobacco: Former Cigarettes Passive Smoke Exposure: Past Smokeless Tobacco: Current Comments:Pt doesn't smoke ci garettes but he uses the vapes Alcohol Use Standard Drinks/Week Comments Never 0 (1 standard drink = 0.6 oz pur e alcohol) Depression Answer Date Recorded Patient Health Questionnaire-9 Score 14 12/11/2024 Patient Health Questionnaire-9 Score 14 12/11/2024 Last PHQ-9: Questionnaire Data Not on file 0 12/11/2024 Housing Stability Answer Date Recorded What is your housing situation today? I have christiano malcom 11/23/[address] you li [...] Date Recorded Patient Health Questionnaire-2 Score 6 12/11/2024 Internet Access Answer Date Recorded Internet Access [...] Description 12/29/2024 10:00 AM EDT Clinical Support [facility] [address] [place] [address] Nicole Rbuio RN 01/09/2025 10:30 AM EDT Office Visit [facility] [address] [place] [address] Rik Bearden MD [address] [place] [address] 01/26/2025 9:30 AM EDT Office Visit [facility] [address] [place] [address] Merritt eGrmain MD [address] [place] [phone] documented as of this encounter Visit Diagnoses Diagnosis Uncomplicated opioid dependence (CMS/HCC) documented in this encounter Additional Health Concerns Assessment Noted Time PHQ-9 Depression Total Score: 14 025 12:55 PM EDT documented as of this encounter Care Teams Bisque Brusher Relationship Specialty Start Date End Date Rik Bearden MD [address] [place] [address] PCP - General Internal Medicine 06/18/15 documented as of this encounter
--- OUTSIDE RECORDS SUMMARY | 2024-12-26 15:44 | XMS_ITS | Encounter Summary ---
Author Organization [employer] Address [address] [facility] 7t [place] [address] Care Team Providers Care Bead Filler Name Role Phone Rik Bearden MD Primary Care Provide r Reason for Visit * Reason Onset Date Comments Triage 12/28/2022 Encounter Details Date Type Department Care Team ([facility] st Contact Info) Description 12/28/2022 Telephone [facility] [address] [place] [address] Rik Bearden MD [address] [place], [place] [phone] Triage Social History Tobacco Use Types Packs/Day [...] Triage call Pt reports being seen in [facility] 12/25 for pain under arm /rib area [...] to report ED visit on 12/25/22 at [facility]. Seen for . Patient advised will forward to team nurse for follow up. Patient still has pain around rib area (stabbing pain) and sore throat. documented in this encounter Plan of Treatment Upcoming Encounters Date Type Department Care Team (Late st Contact Info) Description 12/29/2024 10:00 AM EDT Clinical Support [address] [phone] Nicole Rubio JAMSHID 01/09/2025 10:30 AM EDT Office Visit [facility] [address] [place] [address] Rik Bearden MD [address] [place] [phone] 01/26/2025 9:30 AM EDT Office Visit [facility] [address] [place] [address] Merritt Germain MD [address] [place] [address] [phone] documented as of this encounter Visit Diagnoses Diagnosis Uncomplicated opioid dependence (CMS/HCC) documented in this encounter Care Teams Bead Filler Relationship Specialty Start Date End Date Rik Bearden MD [address] [place] [address] [phone] PCP - General Internal Medicine 06/18/15 documented as of this encounter
--- OUTSIDE RECORDS SUMMARY | 2024-12-26 15:44 | XMS_ITS | Encounter Summary ---
Author Organization [employer] Address [address] 7[address] [place] [address] Care Team Providers Care Value Engineer Name Role Phone Rik Bearden MD Primary Care Provide r Reason for Visit * Reason Comments Med Refill Encounter Details Date Type Department Care Team ([facility] st Contact Info) Description 09/19/2023 Refill [facility] [address] [place] [address] Merritt Germain MD 230 [place] [address] Uncomplicated opioid dependence (CMS/HCC) Social History Tobacco [...] Description 12/29/2024 10:00 AM EDT Clinical Support [address] [place] [address] [address] Nicole Rubio RN 01/09/2025 10:30 AM EDT Office Visit [facility] [address] [place] [phone] Rik Bearden MD [address] [place] [address] 01/26/2025 9:30 AM EDT Office Visit [address] [place] [address] [address] Merritt Germain MD [address] [place] [phone] documented as of this encounter Visit Diagnoses Diagnosis Uncomplicated opioid dependence (CMS/HCC) documented in this encounter Care Teams Value Engineer Relationship Specialty Start Date End Date Rik Bearden MD [address] [place] [phone] PCP - General Internal Medicine 06/18/15 documented as of this encounter
--- OUTSIDE RECORDS SUMMARY | 2024-12-26 15:44 | XMS_ITS | Encounter Summary ---
Author Organization [employer] Address [address] [facility] 7 [place] [address] Care Team Providers Care Car Customizer Name Role Phone Rik Bearden MD Primary Care Provide r Reason for Visit * Reason Comments Med Refill Encounter Details Date Type Department Care Team (Late Contact Info) Description 05/02/2023 Refill [facility] [address] [place] [address] Sravanthi Summers ANP [address] [place] [address] Constipation, unspecified constipation type Social History Tobacco [...] Encounters Date Type Department Care Team (Late Contact Info) Description 12/29/2024 10:00 AM EDT Clinical Support [facility] [address] [place] [phone] Nicole Rubio, JAMSHID 01/09/2025 10:30 AM EDT Office Visit [address] [address] Rik Bearden MD [address] [place] [address] 01/26/2025 9:30 AM EDT Office Visit [facility] [address] [place] [address] Merritt Germain MD [address] [place] [phone] documented as of this encounter Visit Diagnoses Diagnosis Constipation, unspecified constipation type documented in this encounter Care Teams Car Customizer Relationship Specialty Start Date End Date Rik Bearden MD [address] [place] [phone] PCP - General Internal Medicine 06/18/15 documented as of this encounter
--- OUTSIDE RECORDS SUMMARY | 2024-12-26 15:44 | XMS_ITS | Encounter Summary ---
Author Organization [employer] Address [address] [facility] 7 [place] [address] Care Team Providers Care Hris Developer Name Role Phone Rik Bearden MD Primary Care Provide r Reason for Visit * Reason Onset Date Comments Nurse Triage 04/12/2023 Encounter Details Date Type Department Care Team ([facility] st Contact Info) Description 04/12/2023 Telephone [facility] [address] [place] [address] Rik Bearden MD 230 [place], [place] [phone] Nurse Triage Social History Tobacco Use Types [...] see provider regarding this dizziness. Apt with TMAMY Summers 04/22/23 @ 200pm. Insurance is verified [...] accepted this outcome Please contact pt at [phone] (Samoan) documented in this encounter Plan of Treatment Upcoming Encounters Date Type Department Care Team (Late st Contact Info) Description 12/29/2024 10:00 AM EDT Clinical Support [address] [address] Nicole Rubio, JAMSHID 01/09/2025 10:30 AM EDT Office Visit [address] [address] Rik Bearden MD [address] [place] [address] 01/26/2025 9:30 AM EDT Office Visit [address] [address] Merritt Germain MD [address] [place] [address] documented as of this encounter Visit Diagnoses Not on filedocumented in this encounter Care Teams Hris Developer Relationship Specialty Start Date End Date Rik Bearden MD [address] [place] [phone] PCP - General Internal Medicine 06/18/15 documented as of this encounter
--- OUTSIDE RECORDS SUMMARY | 2024-12-26 15:44 | XMS_ITS | Encounter Summary ---
Author Organization [employer] Address [address] 7t [place] [address] Care Team Providers Care Hot Worker Name Role Phone Rik Bearden MD Primary Care Provide r Reason for Visit * Reason Comments Med Change Request Encounter Details Date Type Department Care Team ([facility] st Contact Info) Description 10/01/2024 Refill [facility] [address] [place] [address] Rik Bearden MD [address] [place] [address] Social History Tobacco Use Types Packs/Day Years [...] Description 12/29/2024 10:00 AM EDT Clinical Support [facility] [address] [place] [phone] Nicole Rubio RN 01/09/2025 10:30 AM EDT Office Visit [facility] [address] [place] [address] Rik Bearden MD [address] [place] [address] 01/26/2025 9:30 AM EDT Office Visit [facility] [address] [place] [address] Merritt Germain MD [address] [place] [address] documented as of this encounter Visit Diagnoses Not on filedocumented in this encounter Additional Health Concerns Assessment Noted Time PHQ-9 Depression Total Score: 14 024 1:11 PM EST documented as of this encounter Care Teams Hot Worker Relationship Specialty Start Date End Date Rik Bearden MD [address] [place] [address] PCP - General Internal Medicine 06/18/15 documented as of this encounter
--- OUTSIDE RECORDS SUMMARY | 2024-12-26 15:44 | XMS_ITS | Encounter Summary ---
Author Organization [employer] Address [address] 7[address] [place] [address] Care Team Providers Care On Air Personality Name Role Phone Rik Bearden MD Primary Care Provide r Encounter Details Date Type Department Care Team ([facility] st Contact Info) Description 12/26/2024 Orders Only GENERIC EXTERNAL DATA DEPARTMENT Provider, [...] Description 12/29/2024 10:00 AM EDT Clinical Support [address] [address] Nicole Rubio RN 01/09/2025 10:30 AM EDT Office Visit [address] [address] Rik Bearden MD [address] [place] [address] 01/26/2025 9:30 AM EDT Office Visit [address] [address] Merritt Germain MD [address] [place] [address] documented as of this encounter Procedures Procedure Name Priority Date/Time Associated Diagnosis Comments HEMOGLOBIN Routine 12/26/2024 1:29 PM EDT HEMATOCRIT Routine 12/26/2024 1:29 PM EDT documented in this encounter Results * (ABNORMAL) Hematocrit (12/26/2024 1:29 PM EDT) Hematocrit 40.2(L) 42.0 - 52.0 % [facility] 12/26/2024 1:29 PM EDT 12/26/2024 1:29 PM EDT us Generic External Data Provider LAB BLOOD ORDERAB LES Final Result Performing Organization Address [facility]/ZIP Co de Phone Number [facility] [address] [place] [address] [phone] * Hemoglobin (12/26/2024 1:29 PM EDT) Hemoglobin 14.0 14.0 - 18.0 g/dl [facility] 12/26/2024 1:29 PM EDT 12/26/2024 1:29 PM EDT us Generic External Data Provider LAB BLOOD ORDERAB LES Final Result Performing Organization Address [facility] Co de Phone Number [facility] [address] [place] [address] [phone] documented in this encounter Visit Diagnoses Not on filedocumented in this encounter Additional Health Concerns Assessment Noted Time PHQ-9 Depression Total Score: 14 025 12:55 PM EDT documented as of this encounter Care Teams On Air Personality Relationship Specialty Start Date End Date Rik Bearden MD [address] [place] [address] PCP - General Internal Medicine 06/18/15 documented as of this encounter
--- OUTSIDE RECORDS SUMMARY | 2024-12-26 15:44 | XMS_ITS | Encounter Summary ---
Author Organization [employer] Address [address] [place] [address] Care Team Providers Care Touch Up Painter Name Role Phone Rik Bearden MD Primary Care Provide r Reason for Visit * Reason Comments Med Refill Encounter Details Date Type Department Care Team ([facility] st Contact Info) Description 04/30/2024 Refill [facility] [address] [place] [address] Rik Bearden MD [address] [place] [address] Other tobacco product nicotine dependence, uncomplicated Social [...] Description 12/29/2024 10:00 AM EDT Clinical Support [facility] [address] [place] [address] Nicole Rubio RN 01/09/2025 10:30 AM EDT Office Visit [facility] [address] [place] [address] Rik Bearden MD [address] [place] [address] 01/26/2025 9:30 AM EDT Office Visit [facility] [address] [place] [address] Merritt Germain MD [address] [place] [address] documented as of this encounter Visit Diagnoses Diagnosis Other tobacco product nicotine dependence, uncomplicated documented in this encounter Additional Health Concerns Assessment Noted Time PHQ-9 Depression Total Score: 21 024 2:22 PM EDT documented as of this encounter Care Teams Touch Up Painter Relationship Specialty Start Date End Date Rik Beraden MD [address] [place] [address] PCP - General Internal Medicine 06/18/15 documented as of this encounter
--- OUTSIDE RECORDS SUMMARY | 2024-12-26 15:44 | XMS_ITS | Encounter Summary ---
Author Organization [employer] Address [address] [place] [address] Care Team Providers Care Insurance Operations Rep Name Role Phone Rik Bearden MD Primary Care Provide r Reason for Visit * Reason Comments Med Refill Encounter Details Date Type Department Care Team ([facility] st Contact Info) Description 06/14/2024 Refill [facility] [address] [place] [address] Merritt Germain MD [address] [place] [address] Uncomplicated opioid dependence (CMS/HCC) Social History Tobacco [...] Description 12/29/2024 10:00 AM EDT Clinical Support [facility] [address] [place] [address] Nicole Rubio RN 01/09/2025 10:30 AM EDT Office Visit [facility] [address] [place] [address] Rik Bearden MD [address] [place] [address] 01/26/2025 9:30 AM EDT Office Visit [facility] [address] [place] [phone] Merritt Germain MD [address] [place] [address] documented as of this encounter Visit Diagnoses Diagnosis Uncomplicated opioid dependence (CMS/HCC) documented in this encounter Additional Health Concerns Assessment Noted Time PHQ-9 Depression Total Score: 21 024 2:22 PM EDT documented as of this encounter Care Teams Insurance Operations Rep Relationship Specialty Start Date End Date Rik Bearden MD [address] [place] [address] PCP - General Internal Medicine 06/18/15 documented as of this encounter
--- OUTSIDE RECORDS SUMMARY | 2024-12-26 15:44 | XMS_ITS | Encounter Summary ---
Author Organization [employer] Address [address] [place] [address] Care Team Providers Care Service Captain Name Role Phone Rik Bearden MD Primary Care Provide r Reason for Visit * Reason Onset Date Comments Nurse Triage 08/16/2023 Encounter Details Date Type Department Care Team ([facility] st Contact Info) Description 08/16/2023 Telephone [facility] [address] [place] [address] Rik Bearden MD [address] [place], [place] [phone] Nurse Triage Social History Tobacco Use Types [...] call Pt reports was just in ED [facility] 08/14/23. Pt reported dx of constipation. Pt has had BM since then but, Pt reports pain in area between anus and testicles, burning pain . Pain comes and goes but, is getting stronger each time it comes. Pt reports this pain is increasing in occurrence. Pt denies urinary symptoms but, feels this may be prostrate associated or scrotal. Advised Pt to returnto [facility] Ed for further evaluation. Pt agreed with [...] Description 12/29/2024 10:00 AM EDT Clinical Support [address] [address] Nicole Rubio, RN 01/09/2025 10:30 AM EDT Office Visit [address] [address] Rik Bearden MD [address] [place] [address] 01/26/2025 9:30 AM EDT Office Visit [address] [address] Merritt Germain MD [address] [place] [phone] documented as of this encounter Visit Diagnoses Not on filedocumented in this encounter Care Teams Service Captain Relationship Specialty Start Date End Date Rik Bearden MD [address] [place] [phone] PCP - General Internal Medicine 06/18/15 documented as of this encounter
--- OUTSIDE RECORDS SUMMARY | 2024-12-26 15:44 | XMS_ITS | Encounter Summary ---
Author Organization [employer] Address [address] [place] [address] Care Team Providers Care Reticle Printer Name Role Phone Rik Bearden MD Primary Care Provide r Reason for Visit * Reason Comments Med Change Request Encounter Details Date Type Department Care Team ([facility] st Contact Info) Description 08/29/2023 Refill [facility] [address] [place] [address] Sravanthi Summers, ANP [address] [place] [address] Constipation, unspecified constipation type Social History Tobacco [...] Description 12/29/2024 10:00 AM EDT Clinical Support [address] [address] Nicole Rubio RN 01/09/2025 10:30 AM EDT Office Visit [address] [address] Rik Bearden MD [address] [place] [address] 01/26/2025 9:30 AM EDT Office Visit [address] [address] Merritt Germain MD [address] [place] [address] documented as of this encounter Visit Diagnoses Diagnosis Constipation, unspecified constipation type documented in this encounter Care Teams Reticle Printer Relationship Specialty Start Date End Date Rik Bearden MD [address] [place] [phone] PCP - General Internal Medicine 06/18/15 documented as of this encounter
--- OUTSIDE RECORDS SUMMARY | 2024-12-26 15:44 | XMS_ITS | Data Portability ---
Author Organization [employer] [facility] [place] [facility] Address [address] [place] [phone] Care Team Providers Care Canoe Builder Name Role Phone HIM CCA OTHER Assessment Encounter Date Assessment Date Assessment LastModified by Organization Details LastModified Time 02/02/2024 02/02/2024 I have reviewed and agree with the assessment and plan as documented by the corporate real estate manager. I provided real-time medical direction for this encounter and was immediately available to provide additional phone-based assistance as needed. 43M presenting with chest discomfort today. Patient was seen in [facility] yesterday for similar symptoms. He had full [...] None recorded. Imaging electrocard iogram [email or web address], [address] [place], [phone] 4 14:44:28 Medication Orders None recorded. Patient TargetsNo targets recorded. Patient InstructionsNo instructions recorded. Reason for Referral None Reported. Results Created Date Observation Date Name Description Value Unit Range Abnormal Flag Note LastModifiedBy Organization Detail LastModifiedTime 09/20/19 25 elect dieter carr am No observ ation record ed. [email or web address] [place] [address], [id number] 09/20/2024 14:44:27 Result Notes None recorded. Procedures Surgical History None recorded. Imaging Results Imaging Date Name Status LastModified by Organization Details LastModified Time 09/20/2024 electrocardiogram completed [address], [phone] 09/20/2024 14:44:27 Procedure Notes None recorded. Medical Equipment None Reported. Allergies Allergen ID Allergen Name Allergen Category Reaction Reaction Severity Criticality Documentation Date Start Date Code Code System Note Provider Name and Address Organization Details Recorded Time 98514 acetamino phen / oxycodone medicatio n Not available Not available Not available 09/20/2024 54431 3 RxNorm Not Available [facility] - production [...] SNOMED-CT Code Diagnosis ICD10 Code Diagnosis Note [id number] Lynda Camacho MD [facility] - [facility] [address] [place] [phone] 02/02/2024 19:54:27 02/03/2024 10:33:21 Heartburn [id number] R12 [id number] Jessica Nobles MD Main - [facility] [address] [place] [phone] 09/20/2024 13:54:48 09/20/2024 18:50:35 Dyspnea 621720649 R06.00 Evaluation in the field was performed by my corporate real estate manager colleague, as noted above, I provided [...] but pt not made dietary changes. On corporate real estate manager eval VS wnl (temp 99.3F not [...] Reece Member ID Guarantor Name 02/02/2024 1 [facility] - DOS ON OR AFTER 2022 - DUAL ELIGIBLE - [employer] OPTIONS AND ONE CARE (MEDICARE REPLACEMENT/ADV ANTAGE - HMO) Cody Carranza [id number] Cody Carranza 09/20/2024 1 [facility] - DOS ON OR AFTER 2022 - DUAL ELIGIBLE - [employer] OPTIONS AND ONE CARE (MEDICARE REPLACEMENT/ADV ANTAGE - HMO) Cody Tere [id number] Cody Carranza Notes Date Note Type Note [...] pain. Speaking full sentences without labored breathing. General Car Supervisor Yard POC Test Results from Tom Wagner - [facility] EKG (1) [20:07] EKG test performed. Attachments uploaded as part of this test result can be found under Documents section. ................... ................... ................... ................... ................... ................... ................... ........ General Car Supervisor Yard Note From Tom Wagner: Encountered patient, conscious alert and ambulatory with family present. Patient states that he has been experiencing substernal chest discomfort, which he describes as a mild burning sensation, that begins from the bottom of a sternum and travels down to his umbilical region. Patient states that he was seen at [facility] yesterday where bloodwork was done as well [...] noted to be eating a cheeseburger with portuguese fries upon contact.Skin warm, dry and of appropriate color for ethnicity. Head and neck, free of trauma and edema. -JVD. Breath sounds present, clear and equal bilaterally. Abdomen is soft, non-tender and non-distended. Extremities are free of trauma and edema. 12 Lead EKG performed, sinus bradycardia noted with no present ectopy ; non-diagnostic for acute STEMI. [facility] contacted: expresses patient symptoms are likely due to his Gerd. Given patients complaints and 12 lead EKG presentation, [facility] is not convinced that patient? s symptoms [...] ................... ................... ........ Disposition: Israel Camacho MD [address] [place] [address],[address], [place], [phone], [employer] 02/02/2024 21:13:45 09/20/2024 text/html CRC Nurse Triage [...] at 09/20/2024: Allergies Reviewed at 09/20/2024:45 Comments: Registered Clinical Dietitian verified the Pt.'s name//address and phone number. [...] in. Denies taking over the counter medication. General Car Supervisor [employer] Organization Information for Herminia Garcia Agustin [facility] Business Legal Name: [employer]? Address: [address] [place] [address], Premium Service Representative: Wilder Branham MD CLIA No.: [id number] [employer] POC Test Results from Herminia Garcia EKG (14:26:42) EKG test performed. Attachments uploaded as part of this test result can be found under Documents section. ................... ................... ................... ................... ................... ................... ................... ........ General Car Supervisor Yard Note From Herminia Garcia: Sent to a [...] warm, dry; 12 lead ECG: uploaded to [employer]. Pt is reassured of stable condition. Pt advised to follow up with PCP and continue working to find a therapist. Red flags discussed. Pt has no further questions. ................... ................... ................... ................... ................... ................... ................... ........ [facility] Consulted: Jessica Nobles ................... ................... ................... ................... ................... ................... ................... ........ Disposition: Fulfilled Jessica Nobles MD [address] [place] [address],[address], [place], [phone], INNA ARTHUR 09/20/2024 15:41:18
--- OUTSIDE RECORDS SUMMARY | 2024-12-26 15:44 | XMS_ITS | Encounter Summary ---
Author Organization [employer] Address [address] [place] [address] Care Team Providers Care Screw Machine Set Up Operator Tool Name Role Phone Rik Bearden MD Primary Care Provide r Reason for Visit * Reason Comments Med Refill Encounter Details Date Type Department Care Team ([facility] st Contact Info) Description 03/26/2023 Refill [facility] [address] [place] [address] Rik Bearden MD [address] [place], [place] [phone] Heartburn Social History Tobacco Use Types Packs/Day [...] Description 12/29/2024 10:00 AM EDT Clinical Support [facility] [address] [place] [address] Nicole Rubio, RN 01/09/2025 10:30 AM EDT Office Visit [address] [address] Rik Bearden MD [address] [place] [address] 01/26/2025 9:30 AM EDT Office Visit [address] [address] Merritt Germain MD [address] [place] [address] documented as of this encounter Visit Diagnoses Diagnosis Heartburn documented in this encounter Care Teams Screw Machine Set Up Operator Tool Relationship Specialty Start Date End Date Rik Bearden MD [address] [place] [address] PCP - General Internal Medicine 06/18/15 documented as of this encounter
--- OUTSIDE RECORDS SUMMARY | 2024-12-26 15:44 | XMS_ITS | Clinical Summary ---
Author Organization [facility] [place] [address] Care Team Providers Care Turn Out Name Role Phone Unavailable Primary Care Provider [...]
--- OUTSIDE RECORDS SUMMARY | 2024-12-26 15:44 | XMS_ITS | Clinical Summary ---
Author Organization [employer] Address [address] [place] [address] Care Team Providers Care Cat Tender Name Role Phone Rik Bearden MD Primary Care Provide r Allergies Active Allergy Reactions Criticality Noted Date Comments Shellfish Allergy Rash Low 10/28/2022 Medications * This document contains information received from the source organization and may not represent a complete record from that organization. fluticasone (Flonase) 50 MCG/ACT nasal spray spray 1 spray by intranasal route every day in each nostril 05/18/20 22 Active nicotine polacrilex (Nicorette) 4 MG gum chew [address] and place in between cheeks and gums as needed, up to every 2 hours as needed and as directed 09/09/19 22 Active Mag-Al 200-200 MG/5ML suspension TAKE 30 [...] MOUTH EVERY DAY NEEDED FOR CONSTIPATION 08/14/20 23 Active [facility] Fiber Laxative 625 MG tablet TAKE 2 TABLETS ORALLY DAILY FOR 30 DAYS 08/11/20 23 Active Bisacodyl EC 5 MG EC tablet 08/24/20 23 Active sertraline (Zoloft) 25 MG tablet Take [...] MOUTH TWICE A DAY 60 tablet 1 11/08/19 25 Active clonazePAM (KlonoPIN) 0.5 MG tablet Take 1 tablet by mouth if needed at bedtime for anxiety (or sleep). 01/17/20 24 Active Trelegy Ellipta 200-62.5-25 MCG/ACT aerosol powder Take 1 puff by mouth Once per day. 11/10/19 25 Active gabapentin (Neurontin) 100 MG capsule Take 2 capsules by mouth at bedtime. 01/10/20 24 Active mesalamine ER (Apriso) 0.375 g 24 hr capsule Take 4 capsules by mouth Once per day. 01/15/20 24 Active QUEtiapine XR (SEROquel XR) 150 MG 24 hr tablet Take 1 tablet by mouth in the evening. 01/12/20 24 Active sucralfate (Carafate) 1 g tablet Take 1 tablet by mouth at bedtime. 11/07/19 25 Active Testosterone 20.25 MG/ACT (1.62%) gel 4 PUMP TOPICALLY DAILY FOR 30 DAYS APPLY 2 PUMP AMOUNT OVER MAX AREA OF EACH UPPER ARM AND SHOULDER 08/17/20 24 Active omeprazole (PriLOSEC) [address] capsule Take 1 capsule by mouth before breakfast. Do not crush or chew. Active ibuprofen 400 MG tabletIndicati ons:Neck pain on left side Take 1 tablet (400 mg) by mouth every 6 (six) hours if needed for moderate pain for up to 14 days. 56 tablet 12/14/19 25 2024 Active Buprenorphine HCl-Naloxone HCl (Suboxone) 8-2 MG SL filmIndication s:Uncomplicate d opioid dependence (CMS/HCC) Place 1 Film under the tongue Once per day for 28 days. Do not start before December 29, 2024. 28 Film 12/30/19 25 2024 Active Symbicort 160-4.5 MCG/ACT inhaler 09/04/20 22 2024 Discontinued(M ed list cleanup (will not trigger notification to Pharmacy)) omeprazole (PriLOSEC) [address] capsuleIndicat ions:Gastroeso phageal reflux disease without esophagitis TAKE 1 CAPSULE BY MOUTH EVERY DAY 30 MINUTES TO 1 HOUR BEFORE A MEAL 90 capsule 3 10/08/19 23 2024 Discontinued(M ed list cleanup (will not trigger notification to Pharmacy)) Buprenorphine HCl-Naloxone HCl (Suboxone) 8-2 MG SL filmIndication s:Uncomplicate d opioid dependence (CMS/HCC) Place 1 Film under the tongue Once per day for 28 days. Do not start before November 03, 2024. 28 Film 11/03/19 25 2024 Discontinued(M ed list cleanup (will not trigger notification to Pharmacy)) Buprenorphine HCl-Naloxone HCl (Suboxone) 8-2 MG SL filmIndication s:Uncomplicate d opioid dependence (CMS/HCC) Place 1 Film under the tongue Once per day for 28 days. 28 Film 11/25/19 25 2024 Discontinued(R eorder (will not trigger notification to Pharmacy)) omeprazole (PriLOSEC) [address] capsule Take 1 capsule by mouth Once per day. 09/07/19 25 2024 Discontinued(M ed list cleanup (will not trigger notification to Pharmacy)) Active Problems Problem Noted Date Diagnosed Date Crohn's disease of large intestine with complica tion 08/24/2024 Assessment & Plan (08/24/2024 1:29 PM EST): Dr Toro Persaud GI suspects pt has Chron's disease Patient was [...] liver ? Pt under [facility] care of [facility], last seen 01/2024 Liver US 03/2024 showed: Hepatomegaly, 16.5 cm. Increased hepatic parenchymal heterogeneity and echogenicity could be associated with hepatocellular disease/hepatic steatosis and substantially limits visualization. Hypoechoic areas within the right hepatic lobe are characteristic of focal sparing within a fatty liver. Referred to [facility] clinic for chronic elevation of LFTs and positive VICKIE to rule out autoimmune hepatitis. Appointment scheduled for 08/14/2024 Pt reminded of appointment today Assessment & Plan (03/16/2024 2:12 PM EDT): Patient with chronic persistent elevation of LFTs Hepatitis B and C Negative Denies alcohol use Elevated trigs, fatty liver ? Pt under the care of [facility], last seen 01/2024 Liver US ordered, pending Will refer to [facility] Liver clinic for chronic elevation of LFTs and positive VICKIE to rule out autoimmune hepatitis Assessment & Plan (02/29/2024 12:43 PM EDT): Patient with chronic persistent elevation of LFTs Will obtain a Hepatitis Panel Pt under the care of 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 Evaluated by economic development specialist Dr Tristen Miller ( Last note [...] since c/o dyspnea and palpitations. Evaluated by economic development specialist Dr Tristen Miller ( Last note [...] since c/o dyspnea and palpitations. Evaluated by economic development specialist Dr Tristen Miller ( Last note [...] CT of his neck without contrast at [facility] ER on 07/17/2022 that showed no acute [...] here for a f/u seen at our [facility] with c/o acute on chronic low back pain Had an x-ray of his LOS spine 05/06/2022 that was read as unremarkable previously with c/o persistent low back pain. He was referred to PT with no good results. Initial work up included plain films of his LS spine that were unremarkable. He was referred to [facility], Previously there was evidence of muscle spasm, he was taking Naproxen with no good results, I added a muscle relaxant t Baclofen 10 mg po q 8 hrs prn. Pt states it did not help either. MRI of his LS spine 11/2018 was Normal. Patient was seen at the [facility] and they reviewed his MRI and recommended steroid injection/Pt for myofascial pain, pt declined back then. Today he is complaining of recurrent low back pain that radiates to both lower extremities Patient was seen at [facility], they recommended PT Assessment & Plan (09/08/2022 9:30 AM EST): Pt here for a f/u seen at our [facility] with c/o acute on chronic low back pain Had an x-ray of his LOS spine 05/06/2022 that was read as unremarkable previously with c/o persistent low back pain. He was referred to PT with no good results. Initial work up included plain films of his LS spine that were unremarkable. He was referred to [facility], Previously there was evidence of muscle spasm, he was taking Naproxen with no good results, I added a muscle relaxant t Baclofen 10 mg po q 8 hrs prn. Pt states it did not help either. MRI of his [place] spine 11/2018 was Normal. Patient was seen at the [facility] and they reviewed his MRI and recommended steroid injection/Pt for myofascial pain, pt declined back then. Today he is complaining of recurrent low back pain that radiates to both lower extremities Plan: Will refer back to [facility] for evaluation Scrotal pain 08/11/2022 Assessment & [...] under the care of [facility]. He used to follow with them every 6 months. Encounters * This document contains information received from the source organization and may not represent a complete record from that organization. Date Type Department Care Team Description 12/26/2024 Orders Only GENERIC EXTERNAL DATA DEPARTMENT Provider, Generic External Data 12/26/2024 Refill [facility] [address] [place] [address] Nicole Rubio RN Uncomplicated opioid dependence (CMS/HCC) 12/13/2024 2:30 PM EDT Office Visit [facility] [address], [place] [address] Briana Young NP Neck pain on left side (Primary Dx) 12/13/2024 Travel 12/12/2024 Telephone [facility] [address], [place] [phone] Florencia Arriola, pump and still operator Orders 12/11/2024 Orders Only [facility] [address] [facility] [place] [address] Sravanthi Summers ANP Transaminitis (Primary Dx) 12/01/2024 10:00 AM EDT Office Visit [facility] [address], [place] [address] Merritt Germain MD Opioid dependence in remission (CMS/HCC) (Primary Dx); Vaping nicotine dependence, tobacco product; Anxiety and depression; Panic attacks 12/01/2024 Travel 11/30/2024 Refill [facility] [address], [place] [address] Rik Bearden MD 11/24/2024 Refill [facility] [address] [facility] [place] [address] Adarsh Lassiter, JAMSHID Uncomplicated opioid dependence (CMS/HCC) 11/07/2024 Telephone [facility] [address] [place] [phone] Merritt Germain MD 11/05/2024 Refill [facility] [address] [place] [phone] Rik Bearden MD 11/03/2024 10:15 AM EST Office Visit [facility] [address] [place] [phone] Merritt Germain MD Uncomplicated opioid dependence (CMS/HCC) (Primary Dx); Vaping nicotine dependence, tobacco product 11/03/2024 Travel 10/27/2024 Refill [facility] [address] [place] [phone] Nicole Rubio RN Uncomplicated opioid dependence (CMS/HCC) 10/26/2024 Orders Only GENERIC EXTERNAL DATA DEPARTMENT Provider, Generic External Data 10/06/2024 9:45 AM EST Clinical Support [facility] [address] [place] [phone] Nicole Rubio RN Opioid type dependence, continuous (CMS/HCC) (Primary Dx) 10/06/2024 Travel 10/01/2024 Refill [facility] [address] [place] [phone] Rik Bearden MD 09/29/2024 Refill [facility] [address] [place] [phone] Nicole Rubio RN Uncomplicated opioid dependence (CMS/HCC) 09/28/2024 Telephone [facility] [address] [place] [phone] Rik Bearden MD Results from Last 3 Months Immunizations Name Administration [...] Sign Reading Time Taken Comments Blood Pressure 126/80 12/13/2024 2:22 PM EDT Pulse 71 12/13/2024 2:22 PM EDT Temperature 36.5 ??C (97.7 ??F) 12/13/2024 2:22 PM ED T Respiratory Rate 20 12/13/2024 2:22 PM EDT Oxygen Saturation 98% 12/13/2024 2:22 PM EDT Inhaled Oxygen Concentration - - Weight 78 kg (172 lb) 12/13/2024 2:22 PM EDT Height 167.6 cm (5' 6 ) 12/13/2024 2:22 PM EDT Body Mass Index 27.76 12/13/2024 2:22 PM EDT Plan of Treatment Upcoming Encounters Date Type Department Care Team (Late st Contact Info) Description 12/29/2024 10:00 AM EDT Clinical Support [facility] [address] [place] [phone] Nicole Rubio, JAMSHID 01/09/2025 10:30 AM EDT Office Visit [address] [address] Rik Bearden MD [address] [place] [phone] 01/26/2025 9:30 AM EDT Office Visit [address] [address] Merritt Germain MD [address] [place] [address] Health Maintenance Due Date Last Done Comments Family Planning (PISQ) 1995 COVID-19 Vaccine ( - 2023-2 5 season) 2024 06/26/2022, 05/18/2022 Influenza Vaccine (#1) 2024 Hepatitis B Vaccines (3 of 3 - 19+ 3-dose series) 10/19/2024 08/24/2024, 03/16/2024 SDOH Screening 11/22/2024 11/23/2023 Alcohol/Substance Use Screening 08/24/2025 08/24/2024 Depression Screening 12/11/2025 12/11/2024, 12/11/2024 Tobacco Screening 12/13/2025 12/13/2024 Lipid Panel 03/08/2029 03/08/2024, 08/13/2021 Zoster Vaccines [...] Procedure Name Priority Date/Time Associated Diagnosis Comments HEMATOCRIT Routine 12/26/2024 1:29 PM EDT HEMOGLOBIN Routine 12/26/2024 1:29 PM EDT HEPATIC FUNCTION PANEL Routine 1:29 PM EDT Transaminitis XR KUB AND UPRIGHT 2 VIEWS Routine 12/13/2024 3:31 PM EDT Lower abdominal guarding POCT HECTOR-14 URINE DRUG SCREEN Routine 12/01/2024 9:10 AM EDT Opioid dependence in remission (CMS/HCC) POCT HECTOR-14 URINE DRUG SCREEN Routine 11/03/2024 [...] Recently Relevant to Health Maintenance Results * Hemoglobin (12/26/2024 1:29 PM EDT) Hemoglobin 14.0 14.0 - 18.0 g/dl [facility] 12/26/2024 1:29 PM EDT 12/26/2024 1:29 PM EDT us Generic External Data Provider LAB BLOOD ORDERAB LES Final Result [facility] [address] [place] [phone] * (ABNORMAL) Hematocrit (12/26/2024 1:29 PM EDT) Hematocrit 40.2(L) 42.0 - 52.0 % [facility] 12/26/2024 1:29 PM EDT 12/26/2024 1:29 PM EDT Generic External Data Provider LAB BLOOD ORDERAB LES Final Result Performing Organization Address [facility] de Phone Number [facility] [address] [place] [phone] * (ABNORMAL) Hepatic Function Panel (12/26/2024 1:29 PM EDT) Bilirubin, Total 0.6 0.0 - 1.0 mg/dL [facility] Bilirubin, Direct 0.1 0.0 - 0.5 mg/dL [facility] Aspartate Amino Transferase 41(H) 5 - 37 U/L [facility] Alanine Aminotransferase 97(H) 0 - 40 U/L [facility] Total Protein 7.0 6.5 - 8.0 g/dL [facility] Albumin Level 4.1 3.5 - 5.0 g/dL [facility] Alkaline Phosphatase 64 39 - 117 U/L [facility] Blood Venous blood specimen / Unknown 12/26/2024 1:29 PM EDT 12/26/2024 1:29 PM EDT Rik Bates MD LAB BLOOD ORDERABLES Final Result Performing Organization Address [facility] de Phone Number [facility] [address] [place] [phone] * XR KUB and Upright 2 Views (12/13/2024 3:31 PM EDT) Anatomical Region Laterality Modality Radiographic Peggy ging 12/13/2024 3:31 PM EDT Narrative 12/13/2024 3:53 PM EDT ?[facility] [place] [facility] ?[address] ?[place] [address] ?XRay Report ? Signed ? Patient: Carranza Flores,Cody ?MR#: [id number] ?? 901 ? : 1980 ?Acct:[id number] ? Age/Sex: 44 / M ?ADM Date: 12/13/24 ? Loc: HO.HHCX ? Attending Dr: Briana Young ? Ordering Physician: Briana Young ?? Date of Service: 12/13/24 ?? Procedure(s): XR KUB ?? Accession Number(s): [id number] ? cc: Briana Young ? EXAMINATION: ??XR ABDOMEN 1 VIEW (KUB) ? HISTORY: abdominal pain ? COMPARISON: Comparison is made with the prior examination dated ?? 08/13/2023. ? FINDINGS: ??Three supine views of the abdomen are submitted. ?? The bowel ?? gas pattern is unremarkable, without evidence of mechanical ?? obstruction. ?? There are phleboliths in the pelvis. ?? There are no ?? abnormal soft tissue masses. ??The bones are intact. ? XR/XR KUB ?? IMPRESSION: ?? Unremarkable bowel gas pattern. ? Electronically signed by: ??Shyam Lopez MD ??12/13/2024 03:50 PM EDT ?? RP ? Dictated By: ?Shyam Lopez MD ? Signed By: ?<Electronically signed by Shyam Lopez MD in OV> ?12/13/24 1550 ? DD/ 1531 ? TD/TT: 12/13/24 1540 ? Food Preparation Supervisor: ? Procedure Note Caitie, Image - 12/13/[address] [address] XRay Report Signed Patient: Cody ShepardMR#: [id number] 901 : 1980Acct:[id number] Age/Sex: 44 / MADM Date: 12/13/24 Loc: HO.HHCX Attending Dr: Briana Young Ordering Physician: Briana Young Date of Service: 12/13/24 Procedure(s): XR KUB Accession Number(s): [id number] cc: Briana Young EXAMINATION: XR ABDOMEN 1 VIEW (KUB) HISTORY: abdominal pain COMPARISON: Comparison is made with the prior examination dated 08/13/2023. FINDINGS: Three supine views of the abdomen are submitted. The bowel gas pattern is unremarkable, without evidence of mechanical obstruction. There are phleboliths in the pelvis. There are no abnormal soft tissue masses. The bones are intact. XR/XR KUB IMPRESSION: Unremarkable bowel gas pattern. Electronically signed by: Shyam Lopez MD 12/13/2024 03:50 PM EDT RP Dictated By: Shyam Lopez MD Signed By: <Electronically signed by Shyam Lopez MD in OV> 12/13/24 1550 DD/ 1531 TD/TT: 12/13/24 1540 Food Preparation Supervisor: Briana Young NP IMG XR PROCEDURES Final Result * POCT HECTOR-14 Urine Drug Screen (12/01/2024 9:10 AM EDT) Only the most recent of3 resultswithin the time period is included. THC Negative Cocaine Screen, Urine Negative Opiate Screen, Urine Negative Methamphetamine Screen Urine Negative Amphetamine Screen, Urine Negative Benzodiazepines Screen, Urine Negative Barbiturate Screen, Urine Negative Methadone Screen, Urine Negative Buprenophine Screen, Urine Positive TCA, Urine Negative MDMA Urine Negative ng/mL Oxycodone Screen, Urine Negative Phencyclidine (PCP), Urine Negative Fentanyl, Urine Negative Urine Urine specimen obtained by clean catch procedure / Unknown 12/01/2024 9:10 AM EDT Merritt Germain MD POINT OF CARE TEST ENTER/EDIT ORDERABLES Final Result * XR Chest 2 Views (10/26/2024 4:15 AM EST) Anatomical Region Laterality Modality Chest Radiographic Peggy ging 10/26/2024 4:15 AM EST Narrative 10/26/2024 4:16 AM EST ? [facility] ?[address] ?[place] [address] ?XRay Report ? Signed ? Patient: Carranza Flores,Cody ?MR#: [id number] ?? 901 ? : 1980 ?Acct:[id number] ? Age/Sex: 44 / M ?ADM Date: 02/20/25 ? Loc: HO.ED ? Attending Dr: ? Ordering Physician: Generic ED Physician ?? Date of Service: 10/26/24 ?? Procedure(s): XR chest 2V ?? Accession Number(s): [id number] ? cc: Rik Flaherty MD; Generic ED [...] in OV> ? 10/26/24 0416 ? DD/ 4 ? TD/TT: 10/26/24414 ? Food Preparation Supervisor: ? Procedure Note Caitie, Image - 10/26/[address] [address] XRay Report Signed Patient: Milan Shepard#: [id number] 901 : 1980Acct:[id number] Age/Sex: 44 / MADM Date: 10/26/24 Loc: HO.ED Attending Dr: Ordering Physician: Generic ED Physician Date of Service: 10/26/24 Procedure(s): XR chest 2V Accession Number(s): [id number] cc: Rik Flaherty MD; Generic ED Physician [...] signed by Margarita Deluca MD in OV> 10/26/246 DD/ 4 TD/TT: 10/26/24414 Food Preparation Supervisor: [facility] External Provider IMG XR PROCEDURES Edited Result - Final * High Sensitivity Troponin I (10/26/2024 3:53 AM EST) Pathologist [facility] TROPONIN I HIGH SENSITIVITY 4.9 <3.5 - 35.0 ng/L [facility] Comment:The Gillespie high sens itivity Troponin-I results should beused in conjunction with other diagnostic information suchas ECG, clinical observations and information, and patientsymptoms to aid in the diagnosis of MO. 10/26/2024 3:53 AM EST 10/26/2024 3:58 AM EST Generic External Data Provider LAB BLOOD ORDERAB LES Final Result [facility] [address] [place] [phone] * SARS-CoV-2 RNA, Influenza A/B, and RSV RNA, Ql NAAT (10/26/2024 3:53 AM EST) Pathologist [facility] Influenza A PCR NEGATIVE Negative [facility] Influenza B PCR NEGATIVE Negative [facility] Resp Syncy Virus RNA Qual PCR NEGATIVE Negative [facility] SARS COV2 PCR NEGATIVE Negative [facility] Comment:All test results mus t [...] use by authorized laboratories.Testing performed on the [employer] GeneXpert utilizingreal-time RT-PCR.All SARS CoV2 and positive influenza A/B results arereported to [facility]. 10/26/2024 3:53 AM EST 10/26/2024 3:58 AM EST us Generic External Data Provider LAB MICROBIOLOGY - GENERAL ORDERABLES Final Result [facility] [address] [place] [address] [phone] * (ABNORMAL) CBC auto differential (10/26/2024 3:53 AM EST) White Blood Count 5.4 4.8 - 10.8 X10*3/uL [facility] Red Blood Count 4.78 4.60 - 5.80 X10*6/uL [facility] Hemoglobin 14.2 14.0 - 18.0 g/dl [facility] Hematocrit 40.6(L) 42.0 - 52.0 % [facility] Mean Corpuscular Volume 84.9 80.0 - 98.0 fL [facility] Mean Corpuscular Hemoglobin 29.7 27.0 - 33.0 pg [facility] Mean Corpuscular HGB Conc 35.0 31.0 - 36.0 g/dl [facility] Red Cell Distribution Width 11.9 11.0 - 16.0 % [facility] Platelet Count 158(L) 160 - 400 X10*3/uL [facility] Mean Platelet Volume 9.0(L) 9.4 - 12.4 fL [facility] Neutrophils Percent Auto 48.5 45 - 73 % [facility] Imm Gran Pct Auto 0.2 0.0 - 0.4 % [facility] Lymphocytes Percent Auto 34.7 20 - 40 % [facility] Monocytes Percent Auto 12.0(H) 2 - 11 % [facility] Eosinophils Percent Auto 3.7 0 - 4 % [facility] Basophils Percent Auto 0.9 0 - 2 % [facility] NRBC Pct Auto 0.0 0.0 - 0.2 /100WBC [facility] Neutrophils Absolute Auto 2.6 2.0 - 8.3 x10*3/uL [facility] Imm Gran Abs Auto 0.01 0.00 - 0.03 X10*3/uL [facility] Lymphocytes Absolute Auto 1.9 1.2 - 4.9 X10*3/uL [facility] Monocytes Absolute Auto 0.7 0.1 - 1.2 X10*3/uL [facility] Eosinophils Absolute Auto 0.2 0.0 - 0.4 X10*3/uL [facility] Basophils Absolute Auto 0.1 0.0 - 0.2 X10*3/uL [facility] NRBC Abs Auto 0.000 0.0 - 0.012 X10*3/uL [facility] 10/26/2024 3:53 AM EST 10/26/2024 3:58 AM EST us Generic External Data Provider LAB BLOOD ORDERAB LES Final Result [facility] [address] [place] [phone] * (ABNORMAL) Comprehensive Metabolic Panel (10/26/2024 3:53 AM EST) Sodium 142 135 - 145 mmol/L [facility] Potassium 4.1 3.3 - 5.1 mmol/L [facility] Chloride 108 96 - 108 mmol/L [facility] Carbon Dioxide 27 22 - 29 mmol/L [facility] Anion Gap 11(L) 12 - 20 [facility] Urea Nitrogen (BUN) 11 9 - 16 mg/dL [facility] Creatinine, Serum 0.85 0.5 - 1.4 mg/dL [facility] Creatinine Clr Calc Pharmacy 108.9 [facility] Comment:eGFR (calculated fro m the MDRD study equation) and eCrCl(calculated from the Cockcroft-Gault equation) are based ondifferent parameters and may not yield comparable results.If eCrCl result is absurd, please check patient'sheight/weight. Estimated Glomerular Filt Rate >60 [facility] Comment:Chronic Kidney Disea se: Estimated GFR < 60 mL/min/1.46h2Hqlsaq Kidney Disease: Estimated GFR < 15 mL/min/1.73m2 Glucose 114 60 - 115 mg/dL [facility] Calcium 9.1 8.4 - 10.2 mg/dL [facility] Bilirubin, Total 0.7 0.0 - 1.0 mg/dL [facility] Aspartate Amino Transferase 42(H) 5 - 37 U/L [facility] Alanine Aminotransferase 82(H) 0 - 40 U/L [facility] Total Protein 7.3 6.5 - 8.0 g/dL [facility] Albumin Level 3.8 3.5 - 5.0 g/dL [facility] Alkaline Phosphatase 63 [phone] - 117 U/L [facility] 10/26/2024 3:53 AM EST 10/26/2024 3:58 AM EST Generic External Data Provider LAB BLOOD ORDERAB LES Final Result [facility] [address] [place] [phone] * Hepatitis A,B,C Profile (03/08/2024 2:12 PM EDT) Hepatitis A IgM NON-REAC TIVE Nonreactive [facility] Comment:For additional infor mation, please refer tohttp://education.Swirl/faq/IFT399(This link is being provided for informational/educational purposes only.)THIS TEST PERFORMED AT:[employer] [id number] [place] [phone] DIRECTOR: VIDYA ADAMS MD ~Hepatitis B Surface Antibody NON-REAC TIVE Nonreactive [facility] Comment:THIS TEST PERFORMED AT:[employer] [id number] [place] [phone] DIRECTOR: VIDYA ADAMS MD Hepatitis B Core Antibody NON-REAC TIVE Nonreactive [facility] Comment:For additional infor mation, please refer tohttp://[employer].Swirl/faq/JCE535(This link is being provided for informational/educational purposes only.)THIS TEST PERFORMED AT:[facility] [address] [phone] DIRECTOR: VIDYA ADAMS MD Hepatitis C Antibody NON-REAC TIVE Nonreactive [facility] Comment:HCV antibody was non -reactive. There is no laboratoryevidence of HCV infection.In most cases, no further action is required. However,if recent HCV exposure is suspected, a test for HCV RNA(test code 80774) is suggested.For additional information, please refer tohttp://[employer]/faq/FFO624(This link is being provided for informational/educational purposes only.)THIS TEST PERFORMED AT:[facility] [address] [phone] DIRECTOR: VIDYA ADAMS MD Hepatitis B Surface Ag NON-REAC TIVE Negative [facility] Comment:REFERENCE RANGE: NON -REACTIVEFor additional information, please refer tohttp://[employer].Swirl/faq/WUN894(This link is being provided for informational/educational purposes only.)THIS TEST PERFORMED AT:[facility] [address] [phone] DIRECTOR: VIDYA ADAMS MD Blood Venous blood specimen / Unknown 03/08/2024 2:12 PM EDT 03/08/2024 3:59 PM EDT us Rik Bates MD LAB BLOOD ORDERABLES Final Result [facility] [address] [place] [phone] * (ABNORMAL) Lipid Panel, Standard (03/08/2024 2:12 PM EDT) Triglycerides 240(H) <150 mg/dL [facility] Comment:Desirable Triglyceri de: less than 150 mg/dLBorderline High Triglyceride 150-199 mg/dLHigh Triglyceride: 200-499 mg/dLVery High Triglyceride: greater than or equal to 5OO mg/dL Cholesterol 261(H) <200 mg/dL [facility] Comment:Desirable Cholestero l: less than 200 mg/dLBorderline High Cholesterol: 200-239 mg/dLHigh Cholesterol: greater than 239 mg/dL LDL Cholesterol Calculated 178(H) <100 mg/dL [facility] Comment:Desirable LDL: less than 100 mg/dLNear Optimal/Above Optimal LDL: 110- 129 mg/dLBorderline High LDL: 130-159 mg/dLHigh LDL: 160-189 mg/dLVery High LDL: greater than or equal to 190 mg/dL HDL Cholesterol 35(L) >40 mg/dL [facility] Comment:Desirable HDL: great er than 40 mg/dL Note: This HDL assay may give artificially low results in patients with liver disease. Blood Venous blood specimen / Unknown 03/08/2024 2:12 PM EDT 03/08/2024 3:59 PM EDT us Rik Bates MD LAB BLOOD ORDERABLES Final Result [facility] [address] [place] [phone] * HIV 1/2 ANTIGEN/ANTIBODY,FOURTH GENERATION W/RFL [...] ? For additional information please refer to http://[employer].Swirl/faq/SDT321 (This link is being provided for informational/ educational purposes only.) ? The performance of this assay has not been clinically validated in patients less than 2 years old. ?? 03/27/2022 10:1 4 AM EDT us Merritt Germain MD LAB BLOOD ORDERABLES Final Res ult [facility] Anywhere [address] from Last 3 Months or Most Recently Relevant to Health Maintenance [place] [address] - [facility] Care Teams Cat Tender Relationship Specialty Start Date End Date Rik Bearden MD [address] [place] [address] PCP - General Internal Medicine 06/18/15
--- OUTSIDE RECORDS SUMMARY | 2024-12-26 15:44 | XMS_ITS | Encounter Summary ---
Author Organization [employer] Address [address] [facility] [place] [address] Care Team Providers Care Cnc Set Up Operator Name Role Phone Rik Bearden MD Primary Care Provide r Reason for Visit * Reason Comments Med Change Request Encounter Details Date Type Department Care Team ([facility] st Contact Info) Description 11/30/2024 Refill [facility] [address] [place] [address] Rik Bearden MD [address] [place] [address] Social History Tobacco Use Types Packs/Day Years [...] Description 12/29/2024 10:00 AM EDT Clinical Support [facility] [address] [place] [phone] Nicole Rubio RN 01/09/2025 10:30 AM EDT Office Visit [facility] [address] [place] [phone] Rik Bearden MD [address] [place] [address] 01/26/2025 9:30 AM EDT Office Visit [facility] [address] [place] [phone] Merritt Germain MD [address] [place] [phone] documented as of this encounter Visit Diagnoses Not on filedocumented in this encounter Additional Health Concerns Assessment Noted Time PHQ-9 Depression Total Score: 14 024 1:11 PM EST documented as of this encounter Care Teams Cnc Set Up Operator Relationship Specialty Start Date End Date Rik Bearden MD [address] [place] [address] PCP - General Internal Medicine 06/18/15 documented as of this encounter
[2025-01-03 09:39] LABS: Testosterone, Free 20.4 pg/mL (35.0-155.0); Testosterone, Total 100 ng/dL (250-1100)
== END 2024-12-26 13:14 | disposition home or self-care (01) ==
LOC: HO.LAB 13:13
PROVIDERS: Absent Provider Internal Medicine; PCP Internal Medicine; Visit Provider Internal Medicine Endocrinology, Diabetes & Metabolism
DX: E29.1 Testicular hypofunction (principal); R74.01 Elevation of levels of liver transaminase levels
CPT/HCPCS: 36415; 80076; 84402; 84403; 85014; 85018

== ENCOUNTER 2025-01-01 09:14 | Outpatient (AMB) | payer OTHER, SELFPAY ==
--- NOTE | 2025-01-01 09:17 | A.OFFVIS_ITS ---
Vital Signs 01/01/25 09:20 Height 5 ft 6 in Weight 173 lb BMI 27.9 BP 146/76 H Blood Pressure Location Lt brachial Position Sitting Pulse 67 Intake Visit Reasons: 6 mo f/u Intake Note: Cody presents in the office as a 6 month follow up. CC: He states he will discuss issues with the Allergies shellfish derived Allergy (Intermediate, Verified 01/01/25 09:18) Rash HPI HPI 6 mo f/u: Details: 44 yr old m here for f/u for crohns and fatty liver, mild lobo here for f/u [place]: EGD/[place]: 09/14/23 focal colitis in cecum, refluc changes, diverticulosis, internal hemorrhoids 11/22/23 CTe:mild colitis sigmoid colitis, hepatic steatosis fecal calprotectin: 10/30- 294 INTERIM: I started him on entyvio--just had first dose recently he has poorly defined burning pain in LUQ and RUQ he also has burning he feels since endoscopy 1 yr ago stool is hard occasionally, can be variable vaping sometimes reviewed fatty liver and diet -exercise EXAM: GENERAL: The patient is well developed and nontoxic. VITAL SIGNS:see workflow HEENT: Nonicteric sclerae, PERRLA, EOMI. Oropharynx clear. Moist mucous membranes. Conjunctivae appear well perfused. No thyroid mass. CHEST: Chest wall is nontender. HEART: Regular rate and rhythm without murmurs. LUNGS: Clear to auscultation bilaterally. ABDOMEN: Soft, positive bowel sounds, nontender, no organomegaly.no flank tenderness SKIN: No rash, no excessive bruising, petechiae, or purpura. NEUROLOGIC: Cranial nerves II-XII intact without motor/sensory deficit. 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 Mother No problems noted. Paternal Aunt Lung cancer Social History Alcohol intake: never Patient Tobacco Use Status: Former Tobacco user Tobacco use type: Cigarette Years Smoked: 23 Years e-Cigarette/Vaping Use: Currently Using Current occupational status: disabled Physical Exam Vital Signs: Last Vital Signs Pulse 67 01/01/25 09:20 BP 146/76 H 01/01/25 09:20 BMI result Body Mass Index 27.9 Assessment & Plan Assessment & Plan (1) Crohn's disease: Code(s): K50.90 - Crohn's disease, unspecified, without complications Category: Medical Plan: as above Medications: New esomeprazole magnesium 40 mg PO DAILY 90 caps 2RF Discontinued sucralfate Discontinued Reason: Patient no longer taking 10 mL PO QID 1,000 mL 0RF omeprazole Discontinued Reason: Doctor's Order 20 mg PO BID 90 days 180 caps 0RF prednisone Discontinued Reason: Patient no longer taking PO daily; Take 2 tabs daily x 5 days, then 1 tablet daily x 5 days 10 days 15 tabs 0RF Coding Level of Care Code Est Pt Level 3 (14546) Diagnoses Crohn's disease K50.90
[2025-01-01 09:20] VITALS: BP 146/76; PULSE 67; BMI 27.9
--- OUTSIDE RECORDS SUMMARY | 2025-01-01 10:05 | XMS_ITS | Encounter Summary ---
Author Organization [employer] Address [address] [address] [place] [address] Care Team Providers Care Draw Fire Operator Name Role Phone Rik Bearden MD Primary Care Provide r Reason for Visit * Reason Comments Med Refill Encounter Details Date Type Department Care Team ([facility] st Contact Info) Description 03/26/2023 Refill [facility] [address] [place] [address] Rik Bearden MD [address] [place], [place] [phone] Heartburn Social History Tobacco Use Types Packs/Day [...] Care Team (Late st Contact Info) Description 01/09/2025 10:30 AM EDT Office Visit [facility] [address] [facility] [place] [address] Rik Bearden MD [address] [facility] [place] [address] 02/23/2025 10:00 AM EDT Office Visit [facility] [address] [facility] [place] [address] Merritt Germain MD [address] [facility] [place], [place] [phone] documented as of this encounter Visit Diagnoses Diagnosis Heartburn documented in this encounter Care Teams Draw Fire Operator Relationship Specialty Start Date End Date Rik Bearden MD [facility] [place], [place] [phone] PCP - General Internal Medicine 06/18/15 documented as of this encounter
--- OUTSIDE RECORDS SUMMARY | 2025-01-01 10:05 | XMS_ITS | Encounter Summary ---
Author Organization [employer] Address [address] [facility] [facility] [address] 7[address] [place] [address] Care Team Providers Care Alterations Tailor Name Role Phone Rik Bearden MD Primary Care Provide r Encounter Details Date Type Department Care Team (Latest Contact Info) Description 12/29/2024 Travel Social History Tobacco Use Types Packs/Day [...] housing situation today? I have christiano العراقي 12/27/[address] you li ve. Do you have problems with any of the following? None of the above 12/27/2024 Food Insecurity Answer Date Recorded Within the past 12 months, y ou worried that your food would run out before you got money to buy more: Never True 12/27/2024 Within the past 12 months,th e food you bought just didn't last and you didn't have enough money to get more: Never True Transportation Answer Date Recorded In the past 12 months, has l ack of transportation kept you from medical appts, meetings, work or from getting things needed for daily living? No 12/27/2024 Utilities Answer Date Recorded In the past 12 months, has t he electric, gas, oil or water company threatened to shut off services in your home? No 12/27/2024 Depression Answer Date Recorded Patient Health Questionnaire-2 [...] Description 01/09/2025 10:30 AM EDT Office Visit [facility] [address] [place] [phone] Rik Bearden MD [address] [place] [phone] 02/23/2025 10:00 AM EDT Office Visit [facility] [address] [place] [address] Merritt Germain MD [address] [place] [phone] documented as of this encounter Goals Goal Patient Goal Type Associated Problems Recent Progress Patient-Stated? Author Decrease the frequency of unwanted emotions so that daily functioning is improved General No Nicole Rubio, JAMSHID documented as of this encounter Visit Diagnoses Not on filedocumented in this encounter Additional Health Concerns Assessment Noted Time PHQ-9 Depression Total Score: 14 025 12:55 PM EDT documented as of this encounter Care Teams Alterations Tailor Relationship Specialty Start Date End Date Rik Bearden MD [address] [place] [phone] PCP - General Internal Medicine 06/18/15 documented as of this encounter
--- OUTSIDE RECORDS SUMMARY | 2025-01-01 10:05 | XMS_ITS | Encounter Summary ---
Author Organization [employer] Address [address] [place] [address] Care Team Providers Care Automobile Relocation Engineer Name Role Phone Rik Bearden MD Primary Care Provide r Reason for Visit * Reason Comments OBAT Encounter Details Date Type Department Care Team (Latest Contact Info) Description 12/29/2024 10:00 AM EDT Clinical Support [facility] [address] [place] [address] Nicole Rubio, RN Opioid dependence in remission (CMS/HCC) (Primary Dx); Uncomplicated opioid dependence (CMS/HCC) Social History Tobacco [...] AM EDT documented as of this encounter Progress Notes * Nicole Rubio RN - 12/29/2024 10:00 AM EDT Patient ID: Cody Flores is a 44 y.o. male who presents for follow-up for opioid use disorder. Patient here today for Opioid Dependence RV. Patient on current Suboxone dose of 8/2mg on a 4 week schedule. Induction date: 03-27-22. LFTs done 08/16/23 Last PCP-03/16/2024 Patient actively enrolled in behavioral health services, awaiting new therapist. Psych prescriber Dr. Whatley. HARLAN PROCTOR reviewed by provider LAST OBOT VISIT 12/01/24 F/U for opioid use disorder Utox BUP Overall, doing the same. Did not tolerate decreased dose to 6/1.5, restarted 8/2. Would like to keep current dose. No ADRs. Still with anxiety and panic attacks. Panic attacks are so bad he ends up in the ED. No BH/psych for ~ 1-2 years. Would like to connect with a therapist and psych Rxer. Vaping again, 3 % Has not gone to acupuncture. 12/13/24 Cody has connected with Deborah Shepard team therapist. Cody said that there is nothing new, no significant changes in his life. He continues to be concerned that the bup is affecting his liver function. Will call patient and assure him that we can continue to check in 3-4 months. Mentally, he said he is starting therapy, but he is not able to recall his therapist's name and he is unsure when they will speak again. Will contact Deborah and let her know to continue keeping Cody in her regular contacts. He had talked about his trial tapering his medication and how he was not able to tolerate the lower dose. He was encouraged to try again, perhaps a different way, if that is what he wants to do. He said for now, he will stay at his current dose. This information has been disclosed to you from records protected by federal confidentiality rules(42 CFR Part 2). The federal rules prohibit you from making any further disclosure of information in this record that identifies a patient as having or having had a substance use disorder either directly, by reference to publicly available information, or through verification of such identificationby another person unless further disclosure is expressly permitted by the written consent of the individual whose information is being disclosed or as otherwise permitted by (see 2.3.1). The federal rules restrict any use of the information to investigate or prosecute with regard to a crime any patient with a substance use disorder, except as provided at 2.12??(5) and 2.65. documented in this encounter Miscellaneous Notes * Addendum Note - Merritt Hernandez MD - 12/29/2024 10:00 AM EDTAddended by: MERRITT HERNANDEZ on: 12/29/2024 10:03 AM Modules accepted: Orders documented in this encounter Plan of Treatment Upcoming Encounters Date Type Department Care Team (Late st Contact Info) Description 01/09/2025 10:30 AM EDT Office Visit [facility] [address] [place] [address] Rik Bearden MD [address] [place] [address] 02/23/2025 10:00 AM EDT Office Visit [facility] [address] [place], [place] [phone] Merritt Hernandez MD [address] [place], [place] [phone] documented as of this encounter Goals Goal Patient Goal Type Associated Problems Recent Progress Patient-Stated? Author Decrease the frequency of unwanted emotions so that daily functioning is improved General No Nicole Rubio, RN documented as of this encounter Procedures Procedure Name Priority Date/Time Associated Diagnosis Comments POCT HECTOR-14 URINE DRUG SCREEN Routine 12/29/2024 9:33 AM EDT Opioid dependence in remission (CMS/HCC) documented in this encounter Results * POCT HECTOR-14 Urine Drug Screen (12/29/2024 9:33 AM EDT) THC Negative Cocaine Screen, Urine Negative Opiate Screen, Urine Negative Methamphetamine Screen Urine Negative Amphetamine Screen, Urine Negative Benzodiazepines Screen, Urine Negative Barbiturate Screen, Urine Negative Methadone Screen, Urine Negative Buprenophine Screen, Urine Positive TCA, Urine Negative MDMA Urine Negative ng/mL Oxycodone Screen, Urine Negative Phencyclidine (PCP), Urine Negative Fentanyl, Urine Negative Urine Urine specimen obtained by clean catch procedure / Unknown 12/29/2024 9:33 AM EDT Merritt Hernandez MD POINT OF CARE TEST ENTER/EDIT ORDERABLES Final Result documented in this encounter Visit Diagnoses Diagnosis Opioid dependence in remission (CMS/HCC)- Primary Opioid type dependence, in remission Uncomplicated opioid dependence (CMS/HCC) documented in this encounter Additional Health Concerns Assessment Noted Time PHQ-9 Depression Total Score: 14 025 12:55 PM EDT documented as of this encounter Care Teams Automobile Relocation Engineer Relationship Specialty Start Date End Date Rik Bearden MD [address] [place] [address] [phone] PCP - General Internal Medicine 06/18/15 documented as of this encounter
--- OUTSIDE RECORDS SUMMARY | 2025-01-01 10:05 | XMS_ITS | Encounter Summary ---
Author Organization [employer] Address [address] [facility] [address] [facility] [address] [facility] [address] [place] [address] Care Team Providers Care Return Agent Name Role Phone Rik Bearden MD Primary Care Provide r Reason for Visit * Reason Comments Med Refill Encounter Details Date Type Department Care Team ([facility] st Contact Info) Description 09/19/2023 Refill [facility] [address] [place] [address] Merritt Germain MD [address] [place] [address] Uncomplicated opioid dependence (CMS/HCC) Social History Tobacco [...] Description 01/09/2025 10:30 AM EDT Office Visit [facility] MEDICINE [address] [place] [address] Rik Bearden MD [address] [place] [address] 02/23/2025 10:00 AM EDT Office Visit [facility] MEDICINE [address] [place] [address] Merritt Germain MD [address] [place] [address] documented as of this encounter Visit Diagnoses Diagnosis Uncomplicated opioid dependence (CMS/[facility]) documented in this encounter Care Teams Return Agent Relationship Specialty Start Date End Date Rik Bearden MD [address] [place] [phone] PCP - General Internal Medicine 06/18/15 documented as of this encounter
--- OUTSIDE RECORDS SUMMARY | 2025-01-01 10:05 | XMS_ITS | Encounter Summary ---
Author Organization [employer] Address [address] [address] [place] [address] Care Team Providers Care Subcontract Administrator Name Role Phone Rik Bearden MD Primary Care Provide r Reason for Visit * Reason Comments Med Change Request Encounter Details Date Type Department Care Team ([facility] st Contact Info) Description 11/30/2024 Refill [facility] [address] [place] [address] Rik Bearden MD [address] [place] [address] Social History Tobacco Use Types Packs/Day Years [...] Description 01/09/2025 10:30 AM EDT Office Visit [facility] MEDICINE [address] [place] [phone] Rik Bearden MD [address] [place] [address] 02/23/2025 10:00 AM EDT Office Visit [facility] [address] [place] [phone] Merritt Germain MD [address] [place] [phone] documented as of this encounter Visit Diagnoses Not on filedocumented in this encounter Additional Health Concerns Assessment Noted Time PHQ-9 Depression Total Score: 14 024 1:11 PM EST documented as of this encounter Care Teams Subcontract Administrator Relationship Specialty Start Date End Date Rik Bearden MD [address] [place] [phone] PCP - General Internal Medicine 06/18/15 documented as of this encounter
--- OUTSIDE RECORDS SUMMARY | 2025-01-01 10:05 | XMS_ITS | Encounter Summary ---
Author Organization [employer] Address [address] [facility] [address] [place] [address] Care Team Providers Care Peoplesoft Business Analyst Name Role Phone Rik Bearden MD Primary Care Provide r Reason for Visit * Reason Onset Date Comments Nurse Triage 08/16/2023 Encounter Details Date Type Department Care Team ([facility] st Contact Info) Description 08/16/2023 Telephone [facility] [address] [place] [address] Rik Bearden MD [address] [place], [place] [phone] Nurse Triage Social History Tobacco Use Types [...] call Pt reports was just in ED [facility] 08/14/23. Pt reported dx of constipation. Pt has had BM since then but, Pt reports pain in area between anus and testicles, burning pain . Pain comes and goes but, is getting stronger each time it comes. Pt reports this pain is increasing in occurrence. Pt denies urinary symptoms but, feels this may be prostrate associated or scrotal. Advised Pt to returnto [facility] Ed for further evaluation. Pt agreed with [...] 01/09/2025 10:30 AM EDT Office Visit [facility] [address] [place] [address] Rik Bearden MD [address] [place] [address] 02/23/2025 10:00 AM EDT Office Visit [facility] [address] [place] [address] Merritt Germain MD [address] [place], [place] [phone] documented as of this encounter Visit Diagnoses Not on filedocumented in this encounter Care Teams Peoplesoft Business Analyst Relationship Specialty Start Date End Date Rik Bearden MD [address] [place] [address] [phone] PCP - General Internal Medicine 06/18/15 documented as of this encounter
--- OUTSIDE RECORDS SUMMARY | 2025-01-01 10:05 | XMS_ITS | Encounter Summary ---
Author Organization [employer] Address [address] [place] [address] Care Team Providers Care Helmet Hat Brim Cutter Name Role Phone Rik Bearden MD Primary Care Provide r Reason for Visit * Reason Comments Med Change Request Encounter Details Date Type Department Care Team ([facility] st Contact Info) Description 08/29/2023 Refill [facility] [address] [place] [address] Sravanthi Summers, ANP [address] [place] [address] Constipation, unspecified constipation type Social History Tobacco [...] Description 01/09/2025 10:30 AM EDT Office Visit [facility] [address] [place] [phone] Rik Bearden MD [address] [place] [address] 02/23/2025 10:00 AM EDT Office Visit [facility] [address] [place] [phone] Merritt Germain MD [address] [place] [address] documented as of this encounter Visit Diagnoses Diagnosis Constipation, unspecified constipation type documented in this encounter Care Teams Helmet Hat Brim Cutter Relationship Specialty Start Date End Date Rik Bearden MD [address] [place] [phone] PCP - General Internal Medicine 06/18/15 documented as of this encounter
--- OUTSIDE RECORDS SUMMARY | 2025-01-01 10:05 | XMS_ITS | Clinical Summary ---
Author Organization [facility] [place] [address] Care Team Providers Care Fingerer Name Role Phone Unavailable Primary Care Provider [...]
--- OUTSIDE RECORDS SUMMARY | 2025-01-01 10:05 | XMS_ITS | Encounter Summary ---
Author Organization [employer] Address [address] 7t [place] [address] Care Team Providers Care Air Support Operations Operator Name Role Phone Rik Bearden MD Primary Care Provide r Reason for Visit * Reason Comments Pre-visit Planning SDOH negative. Tobac co screening negative. Encounter Details Date Type Department Care Team ([facility] st Contact Info) Description 12/27/2024 Patient Outreach [facility] [address] [place] [address] Rik Bearden MD [address] [place] [address] Pre-visit Planning (SDOH negative. Tobacco screening negative. ) Social History Tobacco Use Types Packs/Day Years [...] as of this encounter Progress Notes * Merle Reyes - 12/27/2024 1:38 PM EDT CC Merle Michelle placed successful outbound call to patient for pre-visit planning. Patient name and confirmed. Patient confirms appt date and time, and has transportation arrangements. Biggest concern for appointment at this time is liver levels are high. Appropriate screenings completed in anticipation of appointment. documented in this encounter Plan of Treatment Upcoming Encounters Date Type Department Care Team (Late st Contact Info) Description 01/09/2025 10:30 AM EDT Office Visit [facility] [address] [place] [phone] Rik Bearden MD [address] [place] [address] 02/23/2025 10:00 AM EDT Office Visit [facility] [address] [place] [address] [phone] Merritt Germain MD [address] [place], [place] [phone] documented as of this encounter Visit Diagnoses Not on filedocumented in this encounter Additional Health Concerns Assessment Noted Time PHQ-9 Depression Total Score: 14 12/11/ 025 12:55 PM EDT documented as of this encounter Care Teams Air Support Operations Operator Relationship Specialty Start Date End Date Rik Bearden MD [address] [place] [address] PCP - General Internal Medicine 06/18/15 documented as of this encounter
--- OUTSIDE RECORDS SUMMARY | 2025-01-01 10:05 | XMS_ITS | Encounter Summary ---
Author Organization [employer] Address [address] 7t [place] [address] Care Team Providers Care Hearing Therapy Director Name Role Phone Rik Bearden MD Primary Care Provide r Reason for Visit * Reason Comments Med Refill Encounter Details Date Type Department Care Team ([facility] st Contact Info) Description 04/30/2024 Refill [facility] [address] [place] [address] Rik Bearden MD [address] [place] [address] Other tobacco product nicotine dependence, uncomplicated Social [...] Description 01/09/2025 10:30 AM EDT Office Visit [facility] [address] [place] [phone] Rik Bearden MD [address] [place] [address] 02/23/2025 10:00 AM EDT Office Visit [facility] [address] [place] [phone] Merritt Germain MD [address] [place] [address] documented as of this encounter Visit Diagnoses Diagnosis Other tobacco product nicotine dependence, uncomplicated documented in this encounter Additional Health Concerns Assessment Noted Time PHQ-9 Depression Total Score: 21 024 2:22 PM EDT documented as of this encounter Care Teams Hearing Therapy Director Relationship Specialty Start Date End Date Rik Bearden MD [address] [place] [phone] PCP - General Internal Medicine 06/18/15 documented as of this encounter
--- OUTSIDE RECORDS SUMMARY | 2025-01-01 10:05 | XMS_ITS | Encounter Summary ---
Author Organization [employer] Address [address] [facility] 7 [place] [address] Care Team Providers Care Otr Driver Name Role Phone Rik Bearden MD Primary Care Provide r Reason for Visit * Reason Onset Date Comments Nurse Triage 04/12/2023 Encounter Details Date Type Department Care Team ([facility] st Contact Info) Description 04/12/[address] [facility] [address] [place] [address] Rik Bearden MD [address] [place], [place] [phone] Nurse Triage Social History Tobacco Use Types [...] accepted this outcome Please contact pt at [phone] (Iranian) documented in this encounter Plan of Treatment Upcoming Encounters Date Type Department Care Team (Late st Contact Info) Description 01/09/2025 10:30 AM EDT Office Visit [facility] [address] [place] [phone] Rik Bearden MD [address] [place] [address] 02/23/2025 10:00 AM EDT Office Visit [facility] [address] [place] [address] Merritt Germain MD [address] [place] [address] documented as of this encounter Visit Diagnoses Not on filedocumented in this encounter Care Teams Otr Driver Relationship Specialty Start Date End Date Rik Bearden MD [address] [place] [address] PCP - General Internal Medicine 06/18/15 documented as of this encounter
--- OUTSIDE RECORDS SUMMARY | 2025-01-01 10:05 | XMS_ITS | Encounter Summary ---
Author Organization [employer] Address [address] [facility] [address] 7t [place] [address] Care Team Providers Care Legal Technician Name Role Phone Rik Bearden MD Primary Care Provide r Encounter Details Date Type Department Care Team ([facility] Contact Info) Description 12/29/2024 Telephone [facility] [address] [place] [address] Merritt Germain MD [address] [place] [address] Social History Tobacco Use Types Packs/Day Years [...] Description 01/09/2025 10:30 AM EDT Office Visit [facility] [address] [place] [phone] Rik Bearden MD [address] [place] [phone] 02/23/2025 10:00 AM EDT Office Visit [address] [address] Merritt Germain MD [address] [place] [phone] documented as of this encounter Goals Goal Patient Goal Type Associated Problems Recent Progress Patient-Stated? Author Decrease the frequency of unwanted emotions so that daily functioning is improved General Nicole Lei, RN documented as of this encounter Visit Diagnoses Diagnosis Opioid dependence in remission (CMS/HCC) Opioid type dependence, in remission documented in this encounter Additional Health Concerns Assessment Noted Time PHQ-9 Depression Total Score: 14 025 12:55 PM EDT documented as of this encounter Care Teams Legal Technician Relationship Specialty Start Date End Date Rik Bearden MD [address] [place] [address] PCP - General Internal Medicine 06/18/15 documented as of this encounter
--- OUTSIDE RECORDS SUMMARY | 2025-01-01 10:05 | XMS_ITS | Encounter Summary ---
Author Organization [employer] Address [address] [address] 7t [place] [address] Care Team Providers Care Partner Management Consultant Name Role Phone Rik Bearden MD Primary Care Provide r Reason for Visit * Reason Comments Med Refill Encounter Details Date Type Department Care Team ([facility] st Contact Info) Description 06/14/2024 Refill [facility] [address] [place] [address] Merritt Germain MD [address] [place] [address] Uncomplicated opioid dependence (CMS/HCC) Social History Tobacco [...] Description 01/09/2025 10:30 AM EDT Office Visit [facility] [address] [place] [phone] Rik Bearden MD [address] [place] [address] 02/23/2025 10:00 AM EDT Office Visit [facility] [address] [place] [phone] Merritt Germain MD [address] [place] [address] documented as of this encounter Visit Diagnoses Diagnosis Uncomplicated opioid dependence (CMS/HCC) documented in this encounter Additional Health Concerns Assessment Noted Time PHQ-9 Depression Total Score: 21 024 2:22 PM EDT documented as of this encounter Care Teams Partner Management Consultant Relationship Specialty Start Date End Date Rik Bearden MD [address] [place] [phone] PCP - General Internal Medicine 06/18/15 documented as of this encounter
--- OUTSIDE RECORDS SUMMARY | 2025-01-01 10:05 | XMS_ITS | Encounter Summary ---
Author Organization [employer] Address [address] 7[address] [place] [address] Care Team Providers Care Consumer Recruiter Name Role Phone Rik Bearden MD Primary Care Provide r Reason for Visit * Reason Onset Date Comments Med Refill 11/01/2023 Encounter Details Date Type Department Care Team ([facility] st Contact Info) Description 11/01/2023 Telephone [facility] [address] [place] [address] Rik Bearden MD [address] [place], [place] [phone] Med Refill Social History Tobacco Use Types [...] MG SL film To be sent to: [facility]/pharmacy #[address] [place] [address] - [address] [place] [address] documented in this encounter Plan of Treatment Upcoming Encounters Date Type Department Care Team (Late st Contact Info) Description 01/09/2025 10:30 AM EDT Office Visit [facility] [address] [place] [phone] Rik Bearden MD [address] [place] [address] 02/23/2025 10:00 AM EDT Office Visit [facility] [address] [place] [address] Merritt Germain MD [address] [place] [address] documented as of this encounter Visit Diagnoses Not on filedocumented in this encounter Care Teams Consumer Recruiter Relationship Specialty Start Date End Date Rik Bearden MD [address] [place] [address] PCP - General Internal Medicine 06/18/15 documented as of this encounter
--- OUTSIDE RECORDS SUMMARY | 2025-01-01 10:06 | XMS_ITS | Encounter Summary ---
Author Organization [employer] Address [address] [facility] 7t [place] [address] Care Team Providers Care Government Program Manager Name Role Phone Rik Bearden MD Primary Care Provide r Reason for Visit * Reason Comments Med Refill Encounter Details Date Type Department Care Team (Late Contact Info) Description 05/02/2023 Refill [facility] [address] [place] [address] Sravanthi Summers, ANP [address] [place] [address] Constipation, unspecified constipation type Social History Tobacco [...] Department Care Team (Late Contact Info) Description 01/09/2025 10:30 AM EDT Office Visit [facility] [address] [place] [phone] Rik Bearden MD [address] [place] [address] 02/23/2025 10:00 AM EDT Office Visit [facility] [address] [place] [address] [phone] Merritt Germain MD [address] [place] [address] documented as of this encounter Visit Diagnoses Diagnosis Constipation, unspecified constipation type documented in this encounter Care Teams Government Program Manager Relationship Specialty Start Date End Date Rik Bearden MD [address] [place] [address] PCP - General Internal Medicine 06/18/15 documented as of this encounter
--- OUTSIDE RECORDS SUMMARY | 2025-01-01 10:06 | XMS_ITS | Clinical Summary ---
Author Organization [employer] Address [address] [place] [address] Care Team Providers Care Autism Teacher Name Role Phone Rik Bearden MD [...] breakfast. Do not crush or chew. Active Buprenorphine HCl-Naloxone HCl (Suboxone) 8-2 MG SL filmIndication s:Opioid dependence in remission (CMS/HCC) Place 1 Film under the tongue Once per day. 28 Film 1 12/30/19 25 2024 Active Buprenorphine HCl-Naloxone HCl (Suboxone) 8-2 MG SL filmIndication s:Opioid dependence in remission (CMS/HCC) Place 1 Film under the tongue Once per day. 28 Film 1 12/30/19 25 2024 Active Symbicort 160-4.5 MCG/ACT inhaler 09/04/202024 Discontinued(M ed list cleanup (will not trigger [...] cleanup (will not trigger notification to Pharmacy)) ibuprofen 400 MG tabletIndicati ons:Neck pain on left side Take 1 tablet (400 mg) by mouth every 6 (six) hours if needed for moderate pain for up to 14 days. 56 tablet 12/14/192024 Buprenorphine HCl-Naloxone HCl (Suboxone) 8-2 MG SL filmIndication s:Uncomplicate d opioid dependence (CMS/HCC) Place 1 Film under the tongue Once per day for 28 days. Do not start before December 29, 2024. 28 Film 12/30/19 25 2024 Discontinued(D ose adjustment) Active Problems Problem Noted Date Diagnosed Date [...] liver ? Pt under the care of [facility], last seen 01/2024 Liver US 03/2024 showed: Hepatomegaly, 16.5 cm. Increased hepatic parenchymal heterogeneity and echogenicity could be associated with hepatocellular disease/hepatic steatosis and substantially limits visualization. Hypoechoic areas within the right hepatic lobe are characteristic of focal sparing within a fatty liver. Referred to [facility] for chronic elevation of LFTs and positive VICKIE to rule out autoimmune hepatitis. Appointment scheduled for 08/14/2024 Pt reminded of appointment today Assessment & Plan (03/16/2024 2:12 PM EDT): Patient with chronic persistent elevation of LFTs Hepatitis B and C Negative Denies alcohol use Elevated trigs, fatty liver ? 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 Evaluated by parts counter specialist Dr Tristen Miller ( Last note [...] since c/o dyspnea and palpitations. Evaluated by parts counter specialist Dr Tristen Miller ( Last note [...] since c/o dyspnea and palpitations. Evaluated by parts counter specialist Dr Tristen Miller ( Last note [...] CT of his neck without contrast at [facility] ER on 07/17/2022 that showed [...] finding. Midline low back pain without sciatica 3 Assessment & Plan (11/10/2022 1:39 PM EST): Pt here for a f/u seen at our [facility] with c/o acute on chronic low back [...] was Normal. Patient was seen at the [facility] and they reviewed his MRI and recommended steroid injection/Pt for myofascial pain, pt declined back then. Today he is complaining of recurrent low back pain that radiates to both lower extremities Patient was seen at [facility], they recommended PT Assessment & Plan (09/08/2022 9:30 AM EST): Pt here for a f/u seen at our [facility] with c/o acute on chronic low back pain Had an x-ray of his [place] spine 05/06/2022 that was read as unremarkable previously with c/o persistent low back pain. He was referred to PT with no good results. Initial work up included plain films of his [place] spine that were unremarkable. [facility], Previously there was evidence of muscle spasm, he was taking Naproxen with no good results, I added a muscle relaxant t Baclofen 10 mg po q 8 hrs prn. Pt states it did not help either. MRI of his [place] spine 11/2018 was Normal. Patient was seen at the [facility] and they reviewed his MRI and recommended steroid injection/Pt for myofascial pain, pt declined back then. Today he is complaining of recurrent low back pain that radiates to both lower extremities Plan: Will refer back to [facility] for evaluation Scrotal pain 08/11/2022 Assessment & [...] under the care of [facility]. He used to follow with them every 6 months. Encounters * This document contains information received from the source organization and may not represent a complete record from that organization. Date Type Department Care Team Description 12/29/2024 10:00 AM EDT Clinical Support [facility] [address] [place] [address] Nicole Rubio, JAMSHID Opioid dependence in remission (CMS/HCC) (Primary Dx); Uncomplicated opioid dependence (CMS/HCC) 12/29/2024 Telephone [facility] [address] [place] [address] Merritt Germain MD 12/29/2024 Travel 12/27/2024 Patient Outreach [facility] [address] [place], [place] [phone] Rik Bearden MD Pre-visit Planning (SDOH negative. Tobacco screening negative. ) 12/26/2024 Orders Only GENERIC EXTERNAL DATA DEPARTMENT Provider, Generic External Data 12/26/2024 Refill [facility] [address] [place] [address] Nicole RubioJAMSHID Uncomplicated opioid dependence (CMS/HCC) 12/13/2024 2:30 PM EDT Office Visit [facility] [address] [place] [phone] Briana Young NP Neck pain on left side (Primary Dx) 12/13/2024 Travel 12/12/[address] [address] Florencia Arriola RN Lab Orders 12/11/2024 Orders Only [facility] [address] [place] [phone] Sravanthi Summers ANP Transaminitis (Primary Dx) 12/01/2024 10:00 AM EDT Office Visit [address] [phone] Merritt Germain MD Opioid dependence in remission (CMS/[facility]) (Primary Dx); Vaping nicotine dependence, tobacco product; Anxiety and depression; Panic attacks 12/01/2024 Travel 11/30/2024 Refill [facility] [address] [place] [phone] Rik Bearden MD 11/24/2024 Refill [facility] [address] [place] [address] Adarsh Lassiter RN Uncomplicated opioid dependence ([facility]/HCC) 11/07/2024 Telephone [facility] [address] [place] [phone] Merritt Germain MD 11/05/2024 Refill [facility] [address] [place] [address] Rik Bearden MD 11/03/2024 10:15 AM EST Office Visit [facility] [address] [place] [phone] Merritt Germain MD Uncomplicated opioid dependence (CMS/HCC) (Primary Dx); Vaping nicotine dependence, tobacco product 11/03/2024 Travel 10/27/2024 Refill [facility] [address] [place] [address] Nicole Rubio RN Uncomplicated opioid dependence (CMS/HCC) 10/26/2024 Orders Only GENERIC EXTERNAL DATA DEPARTMENT Provider, Generic External Data 10/06/2024 9:45 AM EST Clinical Support [facility] [address] [place] [address] Nicole Rubio, RN Opioid type dependence, continuous (CMS/HCC) (Primary Dx) 10/06/2024 Travel from Last 3 Months Immunizations Name [...] is your housing situation today? I have christianoclaudia العراقي 12/27/[address] you [...] Description 01/09/2025 10:30 AM EDT Office Visit [facility] [address] [place] [phone] Rik Bearden MD [address] [place] [phone] 02/23/2025 10:00 AM EDT Office Visit [facility] [address] [place] [address] Merritt Germain MD [address] [place] [phone] Health Maintenance Due Date Last Done Comments Family Planning (PISQ) 1995 COVID-19 Vaccine (2023-2 5 season) 2024 06/26/2022, 05/18/2022 Influenza Vaccine (#1) 2024 Hepatitis B Vaccines (3 of 3 - 19+ 3-dose series) 10/19/2024 08/24/2024, 03/16/2024 Alcohol/Substance Use Screening 08/24/2025 08/24/2024 Depression Screening 12/11/2025 12/11/2024, 12/11/2024 Tobacco Screening 12/13/2025 12/13/2024 SDOH Screening 12/27/2025 12/27/2024 Lipid Panel 03/08/2029 03/08/2024, 08/13/2021 Zoster Vaccines [...] on patient's age to complete this topic Goals Goal Patient Goal Type Associated Problems Recent Progress Patient-Stated? Author Decrease the frequency of unwanted emotions so that daily functioning is improved General No Nicole Rubio, health informatics specialist Procedure Name Priority Date/Time Associated Diagnosis Comments POCT HECTOR-14 URINE DRUG SCREEN Routine 12/29/2024 9:33 AM EDT Opioid dependence in remission (CMS/HCC) HEMATOCRIT Routine 12/26/2024 1:29 PM EDT HEMOGLOBIN [...] Urine Drug Screen (12/29/2024 9:33 AM EDT) Only the most recent of4 resultswithin the [...] procedure / Unknown 12/29/2024 9:33 AM EDT us Merritt Germain MD POINT OF CARE TEST ENTER/EDIT ORDERABLES Final Result * Hemoglobin (12/26/2024 1:29 PM EDT) Pathologist [facility] Hemoglobin 14.0 14.0 - 18.0 g/dl [facility] 12/26/2024 1:29 PM EDT 12/26/2024 1:29 PM EDT Generic External Data Provider LAB BLOOD ORDERAB LES Final Result Performing Organization Address [facility]/ZIP Co de Phone Number [facility] [address] [place] [phone] * (ABNORMAL) Hematocrit (12/26/2024 1:29 PM EDT) Pathologist [facility] Hematocrit 40.2(L) 42.0 - 52.0 % [facility] 12/26/2024 1:29 PM EDT 12/26/2024 1:29 PM EDT Generic External Data Provider LAB BLOOD ORDERAB LES Final Result Performing Organization Address [facility]/ZIP Co de Phone Number [facility] [address] [place] [phone] * (ABNORMAL) Hepatic Function Panel (12/26/2024 1:29 PM EDT) Bilirubin, Total 0.6 0.0 - 1.0 mg/dL [facility] Bilirubin, Direct 0.1 0.0 - 0.5 mg/dL [facility] Aspartate Amino Transferase 41(H) 5 - 37 U/L [facility] Alanine Aminotransferase 97(H) 0 - 40 U/L [facility] Total Protein 7.0 6.5 - 8.0 g/dL [facility] Albumin Level 4.1 3.5 - 5.0 g/dL [facility] Alkaline Phosphatase 64 39 - 117 U/L [facility] Blood Venous blood specimen / Unknown 12/26/2024 1:29 PM EDT 12/26/2024 1:29 PM EDT Rik Bates MD LAB BLOOD ORDERABLES Final Result [facility] [address] [place] [phone] * XR KUB and Upright 2 Views (12/13/2024 3:31 PM EDT) Anatomical Region Laterality Modality Radiographic Peggy ging 12/13/2024 3:31 PM EDT Narrative 12/13/2024 3:53 PM EDT ?[facility] ?[address] ?[place] [address] ?XRay Report ? Signed ? Patient: Carranza Flores,Cody ?MR#: [id number] ?? 901 ? : 1980 ?Acct:[id number] ? Age/Sex: 44 / M ?ADM Date: 04/09/25 ? Loc: HO.HHCX ? Attending Dr: Briana Young ? Ordering Physician: Briana Young ?? Date of Service: 12/13/24 ?? Procedure(s): XR KUB ?? Accession Number(s): [id number] ? cc: Briana Young ? EXAMINATION: ??XR [...] DD/ 1531 ? TD/TT: 12/13/24 1540 ? Regulatory Product Manager: ? Procedure Note Rodrigue Blood - 12/13/[address] [address] XRay Report Signed Patient: Cody ShepardMR#: [id number] 901 : 1980Acct:[id number] Age/Sex: 44 / MADM Date: 12/13/24 Loc: HO.HHCX Attending Dr: Briana Young Ordering Physician: Briana Young Date of Service: 12/13/24 Procedure(s): XR KUB Accession Number(s): [id number] cc: Briana Young EXAMINATION: XR ABDOMEN 1 [...] Shyam Lopez MD 12/13/2024 03:50 PM EDT Dictated By: Shyam Lopez MD Signed By: <Electronically signed by Shyam Lopez MD in OV> 12/13/24 1550 DD/ 1531 TD/TT: 12/13/24 1540 Regulatory Product Manager: us Briana Young ACCOUNTANT BOOKKEEPER IMG XR PROCEDURES Final Result * XR Chest 2 Views (10/26/2024 4:15 AM EST) Anatomical Region Laterality Modality Chest Radiographic Peggy ging 10/26/2024 4:15 AM EST Narrative 10/26/2024 4:16 AM EST ? [facility] ?[address] ?[place] [address] ?XRay Report ? Signed ? Patient: Cody Shepard ?MR#: [id number] ?? 901 ? : 1980 ?Acct:[id number] ? Age/Sex: 44 / M ?ADM Date: 10/26/24 ? Loc: HO.ED ? Attending Dr: ? Ordering Physician: Generic ED Physician ?? Date of Service: 10/26/24 ?? Procedure(s): XR chest 2V ?? Accession Number(s): [id number] ? cc: Rik Flaherty MD; Generic ED [...] DD/ 0415 ? TD/TT: 10/26/24 0415 ? Regulatory Product Manager: ? Procedure Note Rodrigue Blood - 10/26/2024 [facility] [address] [place] [address] XRay Report Signed Patient: Cody Shepard#: [id number] 901 : 1980Acct:[id number] Age/Sex: 44 / MADM Date: 10/26/24 Loc: HO.ED Attending Dr: Ordering Physician: Generic ED Physician Date of Service: 10/26/24 Procedure(s): XR chest 2V Accession Number(s): [id number] cc: Rik Flaherty MD; Generic ED Physician [...] in OV> 10/26/24415 DD/ 4 TD/TT: 10/26/24414 Regulatory Product Manager: [facility] External Provider IMG XR PROCEDURES Edited Result - Final * High Sensitivity Troponin I (10/26/2024 3:53 AM EST) [facility] TROPONIN I HIGH SENSITIVITY 4.9 <3.5 - 35.0 ng/L [facility] Comment:The Gillespie high sens itivity Troponin-I results should beused in conjunction with other diagnostic information suchas ECG, clinical observations and information, and patientsymptoms to aid in the diagnosis of [place]. 10/26/2024 3:53 AM EST 10/26/2024 3:58 AM EST Generic External Data Provider LAB BLOOD ORDERAB LES Final Result [facility] [address] [place] [phone] * SARS-CoV-2 RNA, Influenza A/B, and RSV RNA, Ql NAAT (10/26/2024 3:53 AM EST) [facility] Influenza A PCR NEGATIVE Negative [facility] Influenza B PCR NEGATIVE Negative [facility] Resp Syncy Virus RNA Qual PCR NEGATIVE Negative [facility] SARS COV2 PCR NEGATIVE Negative [facility] Comment:All test results mus t [...] use by authorized laboratories.Testing performed on the [employer] GeneXpert utilizingreal-time RT-PCR.All SARS CoV2 and positive influenza A/B results arereported to [facility]. 10/26/2024 3:53 AM EST 10/26/2024 3:58 AM EST us Generic External Data Provider LAB MICROBIOLOGY - GENERAL ORDERABLES Final Result [facility] [address] [place] [phone] [phone] * (ABNORMAL) CBC auto differential (10/26/2024 3:53 AM EST) White Blood Count 5.4 4.8 - 10.8 X10*3/uL [facility] Red Blood Count 4.78 4.60 - 5.80 X10*6/uL [facility] Hemoglobin 14.2 14.0 - 18.0 g/dl [facility] Hematocrit 40.6(L) 42.0 - 52.0 % [facility] Mean Corpuscular Volume 84.9 80.0 - 98.0 fL [facility] Mean Corpuscular Hemoglobin 29.7 27.0 - 33.0 pg [facility] Mean Corpuscular HGB Conc 35.0 31.0 - 36.0 g/dl [facility] Red Cell Distribution Width 11.9 11.0 - 16.0 % [facility] Platelet Count 158(L) 160 - 400 X10*3/uL [facility] Mean Platelet Volume 9.0(L) 9.4 - 12.4 fL [facility] Neutrophils Percent Auto 48.5 45 - 73 % [facility] Imm Gran Pct Auto 0.2 0.0 - 0.4 % [facility] Lymphocytes Percent Auto 34.7 20 - 40 % [facility] Monocytes Percent Auto 12.0(H) 2 - 11 % [facility] Eosinophils Percent Auto 3.7 0 - 4 % [facility] Basophils Percent Auto 0.9 0 - 2 % [facility] NRBC Pct Auto 0.0 0.0 - 0.2 /100WBC [facility] Neutrophils Absolute Auto 2.6 2.0 - 8.3 x10*3/uL [facility] Imm Gran Abs Auto 0.01 0.00 - 0.03 X10*3/uL [facility] Lymphocytes Absolute Auto 1.9 1.2 - 4.9 X10*3/uL [facility] Monocytes Absolute Auto 0.7 0.1 - 1.2 X10*3/uL [facility] Eosinophils Absolute Auto 0.2 0.0 - 0.4 X10*3/uL [facility] Basophils Absolute Auto 0.1 0.0 - 0.2 X10*3/uL [facility] NRBC Abs Auto 0.000 0.0 - 0.012 X10*3/uL [facility] 10/26/2024 3:53 AM EST 10/26/2024 3:58 AM EST us Generic External Data Provider LAB BLOOD ORDERAB LES Final Result [facility] [address] [place] [phone] * (ABNORMAL) Comprehensive Metabolic Panel (10/26/2024 3:53 AM EST) Sodium 142 135 - 145 mmol/L [facility] Potassium 4.1 3.3 - 5.1 mmol/L [facility] Chloride 108 96 - 108 mmol/L [facility] Carbon Dioxide 27 22 - 29 mmol/L [facility] Anion Gap 11(L) 12 - 20 [facility] Urea Nitrogen (BUN) 11 9 - 16 mg/dL [facility] Creatinine, Serum 0.85 0.5 - 1.4 mg/dL [facility] Creatinine Clr Calc Pharmacy 108.9 [facility] Comment:eGFR (calculated fro m the MDRD study equation) and eCrCl(calculated from the Cockcroft-Gault equation) are based ondifferent parameters and may not yield comparable results.If eCrCl result is absurd, please check patient'sheight/weight. Estimated Glomerular Filt Rate >60 [facility] Comment:Chronic Kidney Disea se: Estimated GFR < 60 mL/min/1.13m4Yxzxbq Kidney Disease: Estimated GFR < 15 mL/min/1.73m2 Glucose 114 60 - 115 mg/dL [facility] Calcium 9.1 8.4 - 10.2 mg/dL [facility] Bilirubin, Total 0.7 0.0 - 1.0 mg/dL [facility] Aspartate Amino Transferase 42(H) 5 - 37 U/L [facility] Alanine Aminotransferase 82(H) 0 - 40 U/L [facility] Total Protein 7.3 6.5 - 8.0 g/dL [facility] Albumin Level 3.8 3.5 - 5.0 g/dL [facility] Alkaline Phosphatase 63 39 - 117 U/L [facility] 10/26/2024 3:53 AM EST 10/26/2024 3:58 AM EST us Generic External Data Provider LAB BLOOD ORDERAB LES Final Result [facility] [address] [place] [phone] * Hepatitis A,B,C Profile (03/08/2024 2:12 PM EDT) Hepatitis A IgM NON-REAC TIVE Nonreactive [facility] Comment:For additional infor mation, please refer tohttp://Amiigo/faq/KDA643(This link is being provided for informational/educational purposes only.)THIS TEST PERFORMED AT:[facility] [address] [phone] DIRECTOR: VIDYA ADAMS MD ~Hepatitis B Surface Antibody NON-REAC TIVE Nonreactive [facility] Comment:THIS TEST PERFORMED AT:[facility] [address] [phone] DIRECTOR: VIDYA ADAMS MD Hepatitis B Core Antibody NON-REAC TIVE Nonreactive [facility] Comment:For additional infor mation, please refer tohttp://Amiigo/faq/IRF724(This link is being provided for informational/educational purposes only.)THIS TEST PERFORMED AT:[facility] [address] [phone] DIRECTOR: VIDYA ADAMS MD Hepatitis C Antibody NON-REAC TIVE Nonreactive [facility] Comment:HCV antibody was non -reactive. There is no laboratoryevidence of HCV infection.In most cases, no further action is required. However,if recent HCV exposure is suspected, a test for HCV RNA(test code 64826) is suggested.For additional information, please refer tohttp://Amiigo/faq/GVZ943(This link is being provided for informational/educational purposes only.)THIS TEST PERFORMED AT:[facility] [address] [phone] DIRECTOR: VIDYA ADAMS MD Hepatitis B Surface Ag NON-REAC TIVE Negative [facility] Comment:REFERENCE RANGE: NON -REACTIVEFor additional information, please refer tohttp://Amiigo/faq/TSU113(This link is being provided for informational/educational purposes only.)THIS TEST PERFORMED AT:[email or web address] [address] [phone] DIRECTOR: VIDYA ADAMS MD Blood Venous blood specimen / Unknown 03/08/2024 2:12 PM EDT 03/08/2024 3:59 PM EDT Rik Bates MD LAB BLOOD ORDERABLES Final Result [facility] [address] [place] [phone] * (ABNORMAL) Lipid Panel, Standard (03/08/2024 2:12 PM EDT) Triglycerides 240(H) <150 mg/dL [facility] Comment:Desirable Triglyceri de: less than 150 mg/dLBorderline High Triglyceride 150-199 mg/dLHigh Triglyceride: 200-499 mg/dLVery High Triglyceride: greater than or equal to 5OO mg/dL Cholesterol 261(H) <200 mg/dL [facility] Comment:Desirable Cholestero l: less than 200 mg/dLBorderline High Cholesterol: 200-239 mg/dLHigh Cholesterol: greater than 239 mg/dL LDL Cholesterol Calculated 178(H) <100 mg/dL [facility] Comment:Desirable LDL: less than 100 mg/dLNear Optimal/Above Optimal LDL: 110- 129 mg/dLBorderline High LDL: 130-159 mg/dLHigh LDL: 160-189 mg/dLVery High LDL: greater than or equal to 190 mg/dL HDL Cholesterol 35(L) >40 mg/dL [facility] Comment:Desirable HDL: great er than 40 mg/dL Note: This HDL assay may give artificially low results in patients with liver disease. Blood Venous blood specimen / Unknown 03/08/2024 2:12 PM EDT 03/08/2024 3:59 PM EDT Rik Bates MD LAB BLOOD ORDERABLES Final Result [facility] [address] [place] [phone] [phone] * HIV 1/2 ANTIGEN/ANTIBODY,FOURTH GENERATION W/RFL (03/27/2022 10:14 AM EDT) Pathologist [facility] HIV-1/2 ANTIGEN AND ANTIBODIES, 4TH GENERATION W/ REFLEX NON-REACT MARAH NON-REACT MARAH [facility] Comment: HIV-1 antigen and HIV-1/HIV-2 [...] ? For additional information please refer to http://education.[employer].Founder[employer]uel/faq/NXZ850 (This link is being provided for informational/ educational purposes only.) ? The performance of this assay has not been clinically validated in patients less than 2 years old. ?? 03/27/2022 10:1 4 AM EDT us Merritt Germain MD LAB BLOOD ORDERABLES Final Res ult [facility] [address] from Last 3 Months or Most Recently Relevant to Health Maintenance Insurance [employer] ONE CARE < 65 [facility] ONE CARE < 65 Care Teams Autism Teacher Relationship Specialty Start Date End Date Rik Bearden MD [address] [place] [phone] PCP - General Internal Medicine 06/18/15
--- OUTSIDE RECORDS SUMMARY | 2025-01-01 10:06 | XMS_ITS | Data Portability ---
Author Organization [employer], [facility], [place] in - [facility] Address [address] [place] [phone] Care Team Providers Care Logging Rafter Laborer Name Role Phone HIM CCA OTHER Assessment Encounter Date Assessment Date Assessment LastModified by Organization Details LastModified Time 02/02/2024 02/02/2024 I have reviewed and agree with the assessment and plan as documented by the horse breeder. I provided real-time medical direction for this encounter and was immediately available to provide additional phone-based assistance as needed. 43M presenting with chest discomfort today. Patient was seen in [facility] yesterday for similar symptoms. He had [...] None recorded. Imaging electrocard iogram [email or web address], [address] [place], [address] 6 14:44:28 Medication Orders None recorded. Patient TargetsNo targets recorded. Patient InstructionsNo instructions recorded. Reason for Referral None Reported. Results Created Date Observation Date Name Description Value Unit Range Abnormal Flag Note LastModifiedBy Organization Detail LastModifiedTime 09/20/19 25 elect dieter carr am No observ ation record ed. [email or web address] [place] [address], [id number] 09/20/2024 14:44:27 Result Notes None recorded. Procedures Surgical History None recorded. Imaging Results Imaging Date Name Status LastModified by Organization Details LastModified Time 09/20/2024 electrocardiogram completed [address], [phone] 09/20/2024 14:44:27 Procedure Notes None recorded. Medical Equipment None Reported. Allergies Allergen ID Allergen Name Allergen Category Reaction Reaction Severity Criticality Documentation Date Start Date Code Code System Note Provider Name and Address Organization Details Recorded Time 28768 acetamino phen / oxycodone medicatio n Not available Not available Not available 09/20/2024 19731 3 RxNorm Not Available [facility] - production [...] SNOMED-CT Code Diagnosis ICD10 Code Diagnosis Note [id number] Lynda Camacho MD Main - [facility] [address] [place] [address] 02/02/2024 19:54:27 02/03/2024 10:33:21 Heartburn [id number] R12 [id number] Jessica Nobles MD Main - [facility] [address] [place] [address] 09/20/2024 13:54:48 09/20/2024 18:50:35 Dyspnea 354644163 R06.00 Evaluation in the field was performed by my horse breeder colleague, as noted above, I provided real-time [...] but pt not made dietary changes. On horse breeder eval VS wnl (temp 99.3F not c/w [...] Reece Member ID Guarantor Name 02/02/2024 1 [facility] - DOS ON OR AFTER 2022 - DUAL ELIGIBLE - USP OPTIONS AND ONE CARE (MEDICARE REPLACEMENT/ADV ANTAGE - HMO) Cody Carranza [id number] Cody Carranza 09/20/2024 1 [facility] - DOS ON OR AFTER 2022 - DUAL ELIGIBLE - USP OPTIONS AND ONE CARE (MEDICARE REPLACEMENT/ADV ANTAGE - HMO) Cody Tere [id number] Cody Carranza Notes Date Note Type Note [...] pain. Speaking full sentences without labored breathing. [employer] POC Test Results from Tom Wagner - [facility] EKG (1) [20:07] EKG test performed. Attachments uploaded as part of this test result can be found under Documents section. ................... ................... ................... ................... ................... ................... ................... ........ [employer] [employer] Note From Tom Wagner: Encountered patient, conscious alert and ambulatory with family present. Patient states that he has been experiencing substernal chest discomfort, which he describes as a mild burning sensation, that begins from the bottom of a sternum and travels down to his umbilical region. Patient states that he was seen at [facility] yesterday where bloodwork was done as [...] noted to be eating a cheeseburger with uzbek fries upon contact.Skin warm, dry and of appropriate color for ethnicity. Head and neck, free of trauma and edema. -JVD. Breath sounds present, clear and equal bilaterally. Abdomen is soft, non-tender and non-distended. Extremities are free of trauma and edema. 12 Lead EKG performed, sinus bradycardia noted with no present ectopy ; non-diagnostic for acute STEMI. [facility] contacted: expresses patient symptoms are likely due to his Gerd. Given patients complaints and 12 lead EKG presentation, [facility] is not convinced that patient? s symptoms [...] ................... ................... ........ Disposition: Israel Camacho MD [address] [place] [address],[address], [place], [address], [employer] 02/02/2024 21:13:45 09/20/2024 text/html CRC Nurse Triage [...] at 09/20/2024: Allergies Reviewed at 09/20/2024:45 Comments: Clerical Administrative Assistant verified the Pt.'s name//address and phone number. [...] in. Denies taking over the counter medication. [employer] [employer] Organization Information for Herminia Garcia Agustin [facility] Business Legal Name: [employer]? Address: [address] [place] [address], Director Of Child Welfare Services: Wilder Branham MD CLIA No.: [id number] [employer] POC Test Results from Herminia Garcia EKG (14:26:42) EKG test performed. Attachments uploaded as part of this test result can be found under Documents section. ................... ................... ................... ................... ................... ................... ................... ........ [employer] Note From Herminia Garcia: Sent to a [...] warm, dry; 12 lead ECG: uploaded to [employer]. Pt is reassured of stable condition. Pt advised to follow up with PCP and continue working to find a therapist. Red flags discussed. Pt has no further questions. ................... ................... ................... ................... ................... ................... ................... ........ [facility] Consulted: Jessica Nobles ................... ................... ................... ................... ................... ................... ................... ........ Disposition: Fulfilled Jessica Nobles MD [address] [place] [address],[address], [place], [address], IN[employer] ARTHUR 09/20/2024 15:41:18
--- OUTSIDE RECORDS SUMMARY | 2025-01-01 10:06 | XMS_ITS | Encounter Summary ---
Author Organization [employer] Address [address] [place] [address] Care Team Providers Care Superintendent Landfill Operations Name Role Phone Rik Bearden MD Primary Care Provide r Reason for Visit * Reason Onset Date Comments Triage 12/28/2022 Encounter Details Date Type Department Care Team ([facility] st Contact Info) Description 12/28/2022 Telephone [facility] MEDICINE [address] [place] [address] Rik Bearden MD [address] [place], [place] [phone] Triage Social History Tobacco Use Types Packs/Day [...] Triage call Pt reports being seen in [facility] 12/25 for pain under arm /rib area [...] to report ED visit on 12/25/22 at [facility]. Seen for . Patient advised will forward to team nurse for follow up. Patient still has pain around rib area (stabbing pain) and sore throat. documented in this encounter Plan of Treatment Upcoming Encounters Date Type Department Care Team (Late st Contact Info) Description 01/09/2025 10:30 AM EDT Office Visit [facility] MEDICINE [address] [place] [phone] Rik Bearden MD [address] [place] [address] 02/23/2025 10:00 AM EDT Office Visit [facility] MEDICINE [address] [place] [address] [phone] Merritt Germain MD [address] [place], [place] [phone] documented as of this encounter Visit Diagnoses Diagnosis Uncomplicated opioid dependence (CMS/HCC) documented in this encounter Care Teams Superintendent Landfill Operations Relationship Specialty Start Date End Date Rik Bearden MD [address] [place] [phone] PCP - General Internal Medicine 06/18/15 documented as of this encounter
--- OUTSIDE RECORDS SUMMARY | 2025-01-01 10:06 | XMS_ITS | Encounter Summary ---
Author Organization [employer] Address [address] [place] [address] Care Team Providers Care Scale Installer Name Role Phone Rik Bearden MD Primary Care Provide r Reason for Visit * Reason Comments Med Change Request Encounter Details Date Type Department Care Team ([facility] st Contact Info) Description 10/01/2024 Refill [facility] MEDICINE [address] [place] [address] Rik Bearden MD [address] [place] [address] Social History Tobacco Use Types Packs/Day Years [...] Description 01/09/2025 10:30 AM EDT Office Visit [facility] MEDICINE [address] [place] [phone] Rik Bearden MD [address] [place] [address] 02/23/2025 10:00 AM EDT Office Visit [facility] MEDICINE [address] [place] [id number] Merritt Germain MD [address] [place] [address] documented as of this encounter Visit Diagnoses Not on filedocumented in this encounter Additional Health Concerns Assessment Noted Time PHQ-9 Depression Total Score: 14 024 1:11 PM EST documented as of this encounter Care Teams Scale Installer Relationship Specialty Start Date End Date Rik Bearden MD [address] [place] [phone] PCP - General Internal Medicine 06/18/15 documented as of this encounter
== END 2025-01-01 09:45 | disposition home or self-care (01) ==
LOC: HO.HGI 09:15
PROVIDERS: PCP Internal Medicine; Visit Provider Internal Medicine Gastroenterology
DX: K50.90 Crohn's disease, unspecified, without complications (principal)
CPT/HCPCS: 99213

== ENCOUNTER → 2025-01-01 09:14 | Outpatient (BNVA) | payer OTHER, SELFPAY | PROVIDERS: PCP Internal Medicine; Visit Provider Internal Medicine Gastroenterology | DX: K50.90 Crohn's disease, unspecified, without complications (principal) | CPT/HCPCS: 99212 ==

== ENCOUNTER 2025-01-08 13:48 | Outpatient (AMB) | payer OTHER, SELFPAY ==
[2025-01-08 13:51] VITALS: BP 130/58; PULSE 70; O2SAT 98
--- NOTE | 2025-01-08 13:51 | MHC.OFFVIS ---
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 The COVID infection was not very severe. Subsequently after that he has had some odd sensations in his substernal area and chest area. Feels like he has episodic shortness of breath with cough and palpitations. he has been evaluated multiple times in the ER. He did have a CT scan of the chest of 1 point in the beginning April of this year. Ruled out pulmonary emboli. The patient did have just a small amount of emphysema but otherwise no other significant findings noted. His blood work all has been pretty reassuring as well. He did have a cardiac workup including a stress test and an echo without any significant abnormalities. Yet his symptoms are severe enough for him to go to the ER for medical advice because he feels like he is going . he was given a short-acting beta agonist at 1 point but it only resulting worsening palpitations and tremulousness so therefore he stop it. 06/12/2022 the patient is here for pulmonary follow-up visit. He continues to have symptoms of dyspnea on exertion. He did try the Flovent although he did not see any significant improvement. Will go ahead and switch over to Symbicort. I am hopeful that does not cause much tremulousness or palpitations. The patient 1 puff at a time. in the meantime the patient also complains of significant nasal congestion. In part this is making it difficult for him to breathe. I do believe that a big component of his shortness breath is likely from upper airway obstruction issues. He did undergo a CT scan of the sinuses demonstrating with the septum with some other chronic changes. Will go ahead and place the patient on Sudafed the hope the tolerated and also nasal therapy. Wound time also put in a referral in for ENT 1 to further evaluate his deviated septum. Patient also has been having daytime drowsiness. His Tridell score is elevated 11/24. Did undergo home sleep study which we personally reviewed in the office demonstrating no evidence of any sleep apnea. Explained to the patient that the test is not 100%. If the patient continues symptomatic we can always consider in-lab study. 12/17/2022 the patient is here for a pulmonary follow-up visit. Overall he is doing better from a respiratory status. He is responding well to the Symbicort. He has not followed up with ENT. She does use his nasal therapies as needed seems to be doing a little better as well. In addition to that she is complaining of chest discomfort. Bilateral primarily closer to the armpit area. He went to the ER twice for. [place] to be musculoskeletal. He was given ibuprofen. I did reassure him that it seems to be likely due to a muscle strain while trying to move a heavy object. The patient did have a chest x-ray which I personally reviewed demonstrating no acute disease. Otherwise patient is without any other complaints. 01/10/2024 the patient is here for a pulmonary follow-up visit. Overall doing well from a respiratory status. He still has a Symbicort although he does use it as needed. Has not used it recently. He is still having episodes of and anxiety and panic attacks. The episodes still caused him to have some shortness of breath. The usually subside. He has had a Holter monitor for about 4 days. No evidence of any tachycardia or palpitations. Or arrhythmias. Although she did have a reaction to the tape and caused him to have significant skin issues for some time. He has not interested in having another 1 or considering an event monitor. The patient does not have any recent imaging studies. We did talk about the methacholine challenge. He did not have it. At this point he has a clinical diagnosis of asthma. It would have to be confirmed with a methacholine challenge. Will continue the current inhalers as prescribed. In the meantime having difficulty sleeping. He was prescribed gabapentin 100 mg. Does not seem to be enough. I will go ahead and increase it to 200 mg an hour before sleep. If is still not enough is able to take 300 mg and he can always call so I can adjust the dose. Patient follow-up in 6 months. 02/02/2024 the patient is here for a hospital follow-up visit. She had another episode where he was having significant shortness breath anxiety. He went to the ER. In the ER he had a workup including a CTA. He had multiple pulmonary nodules noted. He also had lymphadenopathy noted with some calcifications. Seems that the findings have been stable noted before though the hilar lymph nodes appear to be moderate size. Could represent a conditions such as sarcoidosis. Current the patient is doing better. He had a cardiac workup and was pretty much nondiagnostic. He will use his inhalers whenever he has an episode like the 1 he had brought him to the ER. Will go ahead and repeat the CT scan prior to his next visit in July. If his lymph nodes are still elevated which probably will be will talk about diagnostic interventions to further address the airways. 07/14/2024 the patient is here for a pulmonary follow-up visit. The patient overall is doing well from a respiratory status. He has other non pulmonary complaints including neck pain and back pain and abdominal discomfort. The patient does have issues with nasal congestion as he does have a deviated septum. But overall at baseline. He did undergo a CT scan of the chest that we personally reviewed in the office. Has not been officially read. He still has some small lymph nodes in the AP window but otherwise no other significant findings on the CT scan which is reassuring. No additional imaging studies warranted. He also did have a endoscopy and colonoscopy. Demonstrating some esophagitis and also having some colitis. The patient has been on naproxen. I did advise him not to use the naproxen is that will continue to affect his GI tract. He will continue to work on lifestyle changes. Will follow-up in a year. If he has any issues prior to that he will call for an earlier assessment. 10/13/2024 the patient is here for a pulmonary follow-up visit. He continues to be very symptomatic with shortness breath and chest tightness and some chest heaviness. Sometimes hard for him to be able to take a full breath in because it was uncomfortable. He has a hard time explaining his symptoms are describing the. He has gone to the ER few times already because the chest heaviness is concerning having heart attack. Last time he had a chest x-ray 10/11/2024 and I did look at the x-ray myself. I did visualize some slight haziness to the right hemithorax could be some pneumonitis. In addition to that although he has not been smoking he started vaping. Explained to him that this can result inflammation of the lungs. The patient also has a cardiology evaluation and I believe is scheduled for a CT scan of the coronary arteries in coming up. He does have underlying pulmonary nodules in his last CT scan was back in 06/25/2024. Will see if we see enough in the CT scan of the coronary arteries as his current provide some lung windows. If we need any more imaging we can always order the CT scan again. We are going to try him on is course of prednisone to see if this alleviates some of the information the lungs he is going to quit the vaping and smoking and subsequently also will try him on Trelegy instead of Symbicort to see if this provides some relief. 01/08/2025 the patient is here for pulmonary follow-up visit. Overall he is doing better. He continues on the Trelegy inhaler. Has not had to use his rescue inhaler. He has been trying to cut down the smoking. He understands that this will be important in his healing process. Since we spoke we did talk about a new diagnosis of Crohn's disease. He has been on medications for. His chest discomfort and abdominal discomfort is improved significantly. Therefore at least he is getting some relief with therapy. He will continue with respiratory therapy as prescribed. Follow-up in a year's time. If any issues arise will call for an earlier assessment. 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 Mother No problems noted. Paternal Aunt Lung cancer Social History Alcohol intake: never Patient Tobacco Use Status: Former Tobacco user Tobacco use type: Cigarette Years Smoked: 23 Years e-Cigarette/Vaping Use: Currently Using Current occupational status: disabled Review of Systems Const Denies chills, Denies fatigue, Denies fever(s), Denies weight gain and Denies weight loss Eyes Denies loss of vision ENT Denies dizziness Card Denies chest pain, Denies leg edema, Denies lightheadedness, Denies palpitations, Denies dyspnea on exertion, Denies orthopnea and Denies other Resp Denies cough and Denies dyspnea on exertion GI Denies hematochezia and Denies change in stool character Denies dysuria and Denies urinary frequency Musc Denies abnormal gait, Denies muscle weakness, Denies numbness, Denies radiating pain into limb and Denies tingling Skin/Breast Denies nail changes and Denies rash Neuro Denies Abnormal speech present, Denies abnormal gait, Denies dizziness, Denies loss of vision, Denies memory loss, Denies numbness and Denies tingling Psych Reports anxiety, Denies depression and Denies memory loss Endo Denies fatigue and Denies palpitations Thor/Lymph Denies easy bruising and Denies other (Anemia) Physical Exam Vital Signs: Last Vital Signs Pulse 70 01/08/25 13:51 BP 130/58 L 01/08/25 13:51 Pulse Ox 98 01/08/25 13:51 Oxygen Delivery Method Room Air 01/08/25 13:51 Const General: comfortable and no acute distress Orientation/consciousness: patient oriented x3 HEENT Other: Unremarkable Head: Yes normal to inspection Neck Neck: Yes normal visual inspection Chest Chest palpation & inspection: normal inspection of the chest Resp Effort & Inspection: normal respiratory effort Auscultation: clear to auscultation bilaterally Cardio Heart sounds: S1 normal heart sound present, S2 normal heart sound present, no gallops, no murmurs and no rubs GI Palpation (GI): Soft to palpation Back/Spine/Pelvis Other: unremarkable Skin General skin exam: no rashes or lesions noted Neuro General: patient oriented x3 Speech: No Abnormal speech present Extrem General: Yes normal to inspection Psych Mental Status: mental status grossly normal Assessment & Plan Assessment & Plan (1) SOB (shortness of breath): Code(s): R06.02 - Shortness of breath Category: Medical (2) Deviated nasal bone: Code(s): J34.2 - Deviated nasal septum Category: Medical (3) Sleep disturbance: Code(s): G47.9 - Sleep disorder, unspecified Category: Medical (4) Pulmonary nodule: Code(s): R91.1 - Solitary pulmonary nodule Category: Medical (5) Hilar lymphadenopathy: Code(s): R59.0 - Localized enlarged lymph nodes Category: Medical (6) 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
--- OUTSIDE RECORDS SUMMARY | 2025-01-08 15:21 | XMS_ITS | Encounter Summary ---
Author Organization [employer] Address [address] [facility] 7t [place] [address] Care Team Providers Care Television Writer Name Role Phone Rik Bearden MD Primary Care Provide r Reason for Visit * Reason Comments Med Refill Encounter Details Date Type Department Care Team (Late Contact Info) Description 05/02/2023 Refill [facility] [address] [place] [address] Sravanthi Summers, ANP 230 [place] [address] Constipation, unspecified constipation type Social History Tobacco [...] Description 01/09/2025 10:30 AM EDT Office Visit [facility] [address] [place] [address] Rik Bearden MD [address] [place] [address] 02/23/2025 10:00 AM EDT Office Visit [facility] [address] [place] [address] [phone] Merritt Germain MD [address] [place] [address] documented as of this encounter Visit Diagnoses Diagnosis Constipation, unspecified constipation type documented in this encounter Care Teams Television Writer Relationship Specialty Start Date End Date Rik Bearden MD [address] [place] [address] PCP - General Internal Medicine 06/18/15 documented as of this encounter
--- OUTSIDE RECORDS SUMMARY | 2025-01-08 15:21 | XMS_ITS | Encounter Summary ---
Author Organization [employer] Address [address] [facility] [address] [facility] [address] 7t [place] [address] Care Team Providers Care Safety Investigator Name Role Phone Rik Bearden MD Primary Care Provide r Reason for Visit * Reason Comments Med Change Request Encounter Details Date Type Department Care Team ([facility] st Contact Info) Description 10/01/2024 Refill [facility] 230 [place] [address] Rik Bearden MD 230 [place] [address] Social History Tobacco Use Types Packs/Day Years [...] Description 01/09/2025 10:30 AM EDT Office Visit [facility] [address] [place] [address] Rik Bearden MD [address] [place] [address] 02/23/2025 10:00 AM EDT Office Visit [facility] [address] [place] [address] Merritt Germain MD [address] [place] [address] documented as of this encounter Visit Diagnoses Not on filedocumented in this encounter Additional Health Concerns Assessment Noted Time PHQ-9 Depression Total Score: 14 024 1:11 PM EST documented as of this encounter Care Teams Safety Investigator Relationship Specialty Start Date End Date Rik Bearden MD [address] [place] [address] PCP - General Internal Medicine 06/18/15 documented as of this encounter
--- OUTSIDE RECORDS SUMMARY | 2025-01-08 15:21 | XMS_ITS | Encounter Summary ---
Author Organization [employer] Address [address] [facility] [address] 7[address] [place] [address] Care Team Providers Care Email Developer Name Role Phone Rik Bearden MD Primary Care Provide r Reason for Visit * Reason Comments Med Change Request Encounter Details Date Type Department Care Team ([facility] st Contact Info) Description 08/29/2023 Refill [facility] 230 [place] [address] Sravanthi Summers, ANP 230 [place] [address] Constipation, unspecified constipation type Social History Tobacco [...] Description 01/09/2025 10:30 AM EDT Office Visit [facility] [address] [place] [phone] Rik Bearden MD [address] [place] [address] 02/23/2025 10:00 AM EDT Office Visit [facility] [address] [place] [address] Merritt Germain MD [address] [place] [address] documented as of this encounter Visit Diagnoses Diagnosis Constipation, unspecified constipation type documented in this encounter Care Teams Email Developer Relationship Specialty Start Date End Date Rik Bearden MD [address] [place] [address] PCP - General Internal Medicine 06/18/15 documented as of this encounter
--- OUTSIDE RECORDS SUMMARY | 2025-01-08 15:21 | XMS_ITS | Encounter Summary ---
Author Organization [employer] Address [address] 7[address] [place] [address] Care Team Providers Care Fisher Troll Line Name Role Phone Rik Bearden MD Primary Care Provide r Reason for Visit * Reason Comments Med Change Request Encounter Details Date Type Department Care Team ([facility] st Contact Info) Description 11/30/2024 Refill [facility] [address] [place] [address] Rik Bearden MD [address] [place] [address] Social History Tobacco Use Types Packs/Day Years [...] Description 01/09/2025 10:30 AM EDT Office Visit [facility] [address] [place] [address] Rik Bearden MD [address] [place] [address] 02/23/2025 10:00 AM EDT Office Visit [facility] [address] [place] [address] Merritt Germain MD [address] [place] [address] documented as of this encounter Visit Diagnoses Not on filedocumented in this encounter Additional Health Concerns Assessment Noted Time PHQ-9 Depression Total Score: 14 024 1:11 PM EST documented as of this encounter Care Teams Fisher Troll Line Relationship Specialty Start Date End Date Rik Bearden MD [address] [place] [phone] PCP - General Internal Medicine 06/18/15 documented as of this encounter
--- OUTSIDE RECORDS SUMMARY | 2025-01-08 15:21 | XMS_ITS | Clinical Summary ---
Author Organization [facility] [place] [address] Care Team Providers Care Induction Coordination Engineer Name Role Phone Unavailable Primary Care Provider [...]
--- OUTSIDE RECORDS SUMMARY | 2025-01-08 15:21 | XMS_ITS | Encounter Summary ---
Author Organization [employer] Address [address] [facility] 7[address] [place] [address] Care Team Providers Care Research Manufacturing Operator Name Role Phone Rik Bearden MD Primary Care Provide r Reason for Visit * Reason Comments Med Refill Encounter Details Date Type Department Care Team ([facility] st Contact Info) Description 03/26/2023 Refill [facility] [address] [place] [address] Rik Bearden MD 230 [place], [place] [phone] Heartburn Social History Tobacco Use Types Packs/Day [...] Description 01/09/2025 10:30 AM EDT Office Visit [facility] [address] [facility] [place] [address] Rik Bearden MD [address] [facility] [place] [address] 02/23/2025 10:00 AM EDT Office Visit [facility] [address] [facility] [place] [address] Merritt Germain MD [address] [facility] [place], [place] [phone] documented as of this encounter Visit Diagnoses Diagnosis Heartburn documented in this encounter Care Teams Research Manufacturing Operator Relationship Specialty Start Date End Date Rik Bearden MD [facility] [place], [place] [phone] PCP - General Internal Medicine 06/18/15 documented as of this encounter
--- OUTSIDE RECORDS SUMMARY | 2025-01-08 15:21 | XMS_ITS | Encounter Summary ---
Author Organization [employer] Address [address] 7[address] [place] [address] Care Team Providers Care Internet Media Planner Name Role Phone Rik Bearden MD Primary Care Provide r Reason for Visit * Reason Comments Med Refill Encounter Details Date Type Department Care Team ([facility] st Contact Info) Description 09/19/2023 Refill [facility] [address] [place] [address] Merritt Germain MD 230 [place] [address] Uncomplicated opioid dependence (CMS/HCC) Social History Tobacco [...] AM EDT Office Visit [facility] [address] [place] [phone] Rik Bearden MD [address] [place] [address] 02/23/2025 10:00 AM EDT Office Visit [facility] [address] [place] [address] Merritt Germain MD [address] [place] [address] documented as of this encounter Visit Diagnoses Diagnosis Uncomplicated opioid dependence (CMS/[facility]) documented in this encounter Care Teams Internet Media Planner Relationship Specialty Start Date End Date Rik Bearden MD [address] [place] [address] PCP - General Internal Medicine 06/18/15 documented as of this encounter
--- OUTSIDE RECORDS SUMMARY | 2025-01-08 15:21 | XMS_ITS | Encounter Summary ---
Author Organization [employer] Address [address] [facility] 7t [place] [address] Care Team Providers Care Wet Machine Tender Name Role Phone Rik Bearden MD Primary Care Provide r Reason for Visit * Reason Onset Date Comments Triage 12/28/2022 Encounter Details Date Type Department Care Team ([facility] st Contact Info) Description 12/28/2022 Telephone [facility] 230 [place] [address] Rik Bearden MD 230 [place], [place] [phone] Triage Social History Tobacco Use Types Packs/Day [...] Triage call Pt reports being seen in [facility] 12/25 for pain under arm /rib area [...] to report ED visit on 12/25/22 at [facility]. Seen for . Patient advised will forward to team nurse for follow up. Patient still has pain around rib area (stabbing pain) and sore throat. documented in this encounter Plan of Treatment Upcoming Encounters Date Type Department Care Team (Late st Contact Info) Description 01/09/2025 10:30 AM EDT Office Visit [facility] [address] [place] [address] Rik Bearden MD 230 [place] [address] 02/23/2025 10:00 AM EDT Office Visit [facility] [address] [place] [address] [phone] Merritt Germain MD 230 [place], [place] [phone] documented as of this encounter Visit Diagnoses Diagnosis Uncomplicated opioid dependence (CMS/HCC) documented in this encounter Care Teams Wet Machine Tender Relationship Specialty Start Date End Date Rik Bearden MD [address] [place] [address] [phone] PCP - General Internal Medicine 06/18/15 documented as of this encounter
--- OUTSIDE RECORDS SUMMARY | 2025-01-08 15:21 | XMS_ITS | Data Portability ---
Author Organization [employer] [facility], Or in - [facility] Address [address] [place] [phone] Care Team Providers Care Photography Spotter Name Role Phone HIM CCA OTHER Assessment Encounter Date Assessment Date Assessment LastModified by Organization Details LastModified Time 02/02/2024 02/02/2024 I have reviewed and agree with the assessment and plan as documented by the composition molder. I provided real-time medical direction for this encounter and was immediately available to provide additional phone-based assistance as needed. 43M presenting with chest discomfort today. Patient was seen in [facility] yesterday for similar symptoms. He had [...] recorded. Imaging electrocard iogram [email or web address], [address] [place], [phone] 14:44:28 Medication Orders None recorded. Patient TargetsNo targets recorded. Patient InstructionsNo instructions recorded. Reason for Referral None Reported. Results Created Date Observation Date Name Description Value Unit Range Abnormal Flag Note LastModifiedBy Organization Detail LastModifiedTime 09/20/19 25 elect dieter carr am No observ ation record ed. [email or web address] [place] [address], [phone] 09/20/2024 14:44:27 Result Notes None recorded. Procedures Surgical History None recorded. Imaging Results Imaging Date Name Status LastModified by Organization Details LastModified Time 09/20/2024 electrocardiogram completed [address], [phone] 09/20/2024 14:44:27 Procedure Notes None recorded. Medical Equipment None Reported. Allergies Allergen ID Allergen Name Allergen Category Reaction Reaction Severity Criticality Documentation Date Start Date Code Code System Note Provider Name and Address Organization Details Recorded Time 38793 acetamino phen / oxycodone medicatio n Not available Not available Not available 09/20/2024 52747 3 RxNorm Not Available [facility] - production [...] SNOMED-CT Code Diagnosis ICD10 Code Diagnosis Note [id number] Lynda Camacho MD Main - [facility] [address] [place] [phone] 02/02/2024 19:54:27 02/03/2024 10:33:21 Heartburn [id number] R12 [id number] Jessica Nobles MD Main - [facility] [address] [place] [phone] 09/20/2024 13:54:48 09/20/2024 18:50:35 Dyspnea [id number] R06.00 Evaluation in the field was performed by my composition molder colleague, as noted above, I provided real-time [...] but pt not made dietary changes. On composition molder eval VS wnl (temp 99.3F not c/w [...] Reece Member ID Guarantor Name 02/02/2024 1 [facility] - DOS ON OR AFTER 2022 - DUAL ELIGIBLE - LONG TERM OPTIONS AND ONE CARE (MEDICARE REPLACEMENT/ADV ANTAGE - HMO) Cody Carranza [id number] Cody Carranza 09/20/2024 1 [facility] - DOS ON OR AFTER 2022 - DUAL ELIGIBLE - LONG TERM OPTIONS AND ONE CARE (MEDICARE REPLACEMENT/ADV ANTAGE - HMO) Cody Tere [id number] Cody Carranza Notes Date Note Type Note [...] pain. Speaking full sentences without labored breathing. Director Of Clinical Services POC Test Results from Tom Wagner - [facility] EKG (1) [20:07] EKG test performed. Attachments uploaded as part of this test result can be found under Documents section. ................... ................... ................... ................... ................... ................... ................... ........ Director Of Clinical Services Note From Tom Wagner: Encountered patient, conscious alert and ambulatory with family present. Patient states that he has been experiencing substernal chest discomfort, which he describes as a mild burning sensation, that begins from the bottom of a sternum and travels down to his umbilical region. Patient states that he was seen at [facility] yesterday where bloodwork was done as [...] noted to be eating a cheeseburger with northern irish fries upon contact.Skin warm, dry and of appropriate color for ethnicity. Head and neck, free of trauma and edema. -JVD. Breath sounds present, clear and equal bilaterally. Abdomen is soft, non-tender and non-distended. Extremities are free of trauma and edema. 12 Lead EKG performed, sinus bradycardia noted with no present ectopy ; non-diagnostic for acute STEMI. [facility] contacted: expresses patient symptoms are likely due to his Gerd. Given patients complaints and 12 lead EKG presentation, [facility] is not convinced that patient? s symptoms [...] ................... ................... ........ Disposition: Israel Camacho MD [address] [place] [address],[address], [place], [phone], [employer] 02/02/2024 21:13:45 09/20/2024 text/html CRC Nurse Triage [...] at 09/20/2024: Allergies Reviewed at 09/20/2024:45 Comments: Sole Stitcher Hand verified the Pt.'s name//address and phone number. [...] in. Denies taking over the counter medication. Director Of Clinical Services Organization Information for Herminia Garcia Agustin [facility] Business Legal Name: [employer]? Address: [address] [place] [address], Cylinder Checker: Wilder Branham MD CLIA No.: [id number] Director Of Clinical Services POC Test Results from Herminia Garcia EKG (14:26:42) EKG test performed. Attachments uploaded as part of this test result can be found under Documents section. ................... ................... ................... ................... ................... ................... ................... ........ Director Of Clinical Services Note From Herminia Garcia: Sent to a [...] warm, dry; 12 lead ECG: uploaded to [employer]. Pt is reassured of stable condition. Pt advised to follow up with PCP and continue working to find a therapist. Red flags discussed. Pt has no further questions. ................... ................... ................... ................... ................... ................... ................... ........ [facility] Consulted: Jessica Nobles ................... ................... ................... ................... ................... ................... ................... ........ Disposition: Fulfilled Jessica Nobles MD [address] [place] [address],[address], [place], [phone], INNA ARTHUR 09/20/2024 15:41:18
--- OUTSIDE RECORDS SUMMARY | 2025-01-08 15:21 | XMS_ITS | Encounter Summary ---
Author Organization [employer] Address [address] [facility] [address] [place] [address] Care Team Providers Care Lighting Specialist Name Role Phone Rik Bearden MD Primary Care Provide r Reason for Visit * Reason Onset Date Comments chart prep 01/05/2025 Encounter Details Date Type Department Care Team ([facility] st Contact Info) Description 01/05/2025 Telephone [facility] [address] [place] [address] Rik Bearden MD [address] [place], [place] [phone] chart prep Social History Tobacco Use Types Packs/Day Years [...] encounter Miscellaneous Notes * Telephone Encounter - Aide Chu [place] - 01/05/2025 2:30 PM EDT Chart Prep Labs: done Images: done Vaccines due: Covid Due, Hep B Due, and Flu Due Referrals: Completed Screenings: Not Applicable Overdue care gaps: Disability documented in this encounter Plan of Treatment Upcoming Encounters Date Type Department Care Team (Late st Contact Info) Description 01/09/2025 10:30 AM EDT Office Visit [facility] [address] [place] [phone] Rik Bearden MD [address] [place] [phone] 02/23/2025 10:00 AM EDT Office Visit [facility] [address] [place] [phone] Merritt Germain MD [address] [place] [phone] documented as of this encounter Goals Goal Patient Goal Type Associated Problems Recent Progress Patient-Stated? Author Decrease the frequency of unwanted emotions so that daily functioning is improved General Nicole Lei RN documented as of this encounter Visit Diagnoses Not on filedocumented in this encounter Additional Health Concerns Assessment Noted Time PHQ-9 Depression Total Score: 14 025 12:55 PM EDT documented as of this encounter Care Teams Lighting Specialist Relationship Specialty Start Date End Date Rik Bearden MD [address] [place] [address] PCP - General Internal Medicine 06/18/15 documented as of this encounter
--- OUTSIDE RECORDS SUMMARY | 2025-01-08 15:21 | XMS_ITS | Encounter Summary ---
Author Organization [employer] Address [address] [facility] [address] [place] [address] Care Team Providers Care Sheet Metal Production Worker Name Role Phone Rik Bearden MD Primary Care Provide r Reason for Visit * Reason Comments Med Refill Encounter Details Date Type Department Care Team ([facility] st Contact Info) Description 04/30/2024 Refill [facility] [address] [place] [address] Rki Bearden MD [address] [place] [address] Other tobacco product nicotine dependence, uncomplicated Social [...] Description 01/09/2025 10:30 AM EDT Office Visit [facility] [address] [place] [phone] Rik Bearden MD [address] [place] [phone] 02/23/2025 10:00 AM EDT Office Visit [facility] [address] [place] [phone] Merritt Germain MD [address] [place] [phone] documented as of this encounter Visit Diagnoses Diagnosis Other tobacco product nicotine dependence, uncomplicated documented in this encounter Additional Health Concerns Assessment Noted Time PHQ-9 Depression Total Score: 21 024 2:22 PM EDT documented as of this encounter Care Teams Sheet Metal Production Worker Relationship Specialty Start Date End Date Rik Bearden MD [address] [place] [phone] PCP - General Internal Medicine 06/18/15 documented as of this encounter
--- OUTSIDE RECORDS SUMMARY | 2025-01-08 15:21 | XMS_ITS | Encounter Summary ---
Author Organization [employer] Address [address] [facility] [address] [place] [address] Care Team Providers Care Chief Substation Operator Name Role Phone Rik Bearden MD Primary Care Provide r Reason for Visit * Reason Onset Date Comments Nurse Triage 04/12/2023 Encounter Details Date Type Department Care Team ([facility] st Contact Info) Description 04/12/2023 Telephone [facility] [address] [place] [address] Rik Bearden MD [address] [place], [place] [phone] Nurse Triage Social History Tobacco Use Types [...] accepted this outcome Please contact pt at [phone] (Chinese) documented in this encounter Plan of Treatment Upcoming Encounters Date Type Department Care Team (Late st Contact Info) Description 01/09/2025 10:30 AM EDT Office Visit [facility] [address] [place] [phone] Rik Bearden MD [address] [place] [phone] 02/23/2025 10:00 AM EDT Office Visit [facility] [address] [place] [phone] Merritt Germain MD [address] [place] [phone] documented as of this encounter Visit Diagnoses Not on filedocumented in this encounter Care Teams Chief Substation Operator Relationship Specialty Start Date End Date Rik Bearden MD [address] [place] [address] PCP - General Internal Medicine 06/18/15 documented as of this encounter
--- OUTSIDE RECORDS SUMMARY | 2025-01-08 15:21 | XMS_ITS | Encounter Summary ---
Author Organization [employer] Address [address] [facility] [address] [place] [address] Care Team Providers Care Dry Kiln Loader Name Role Phone Rik Bearden MD Primary Care Provide r Reason for Visit * Reason Onset Date Comments Med Refill 11/01/2023 Encounter Details Date Type Department Care Team ([facility] st Contact Info) Description 11/01/2023 Telephone [facility] [address] [place] [address] Rik Bearden MD [address] [place], [place] [phone] Med Refill Social History Tobacco Use Types [...] MG SL film To be sent to: [facility]/pharmacy [address] [place] [address] - [address] [place] [address] documented in this encounter Plan of Treatment Upcoming Encounters Date Type Department Care Team (Late st Contact Info) Description 01/09/2025 10:30 AM EDT Office Visit [facility] [address] [place] [phone] Rik Bearden MD [address] [place] [phone] 02/23/2025 10:00 AM EDT Office Visit [facility] [address] [place] [address] Merritt Germain MD [address] [place] [phone] documented as of this encounter Visit Diagnoses Not on filedocumented in this encounter Care Teams Dry Kiln Loader Relationship Specialty Start Date End Date Rik Bearden MD [address] [place] [address] PCP - General Internal Medicine 06/18/15 documented as of this encounter
--- OUTSIDE RECORDS SUMMARY | 2025-01-08 15:21 | XMS_ITS | Clinical Summary ---
Author Organization [employer] Address [address] [place] [address] Care Team Providers Care Product Lister Name Role Phone Rik Bearden MD Primary [...] liver ? Pt under the care of [facility], last seen 01/2024 Liver US 03/2024 showed: Hepatomegaly, 16.5 cm. Increased hepatic parenchymal heterogeneity and echogenicity could be associated with hepatocellular disease/hepatic steatosis and substantially limits visualization. Hypoechoic areas within the right hepatic lobe are characteristic of focal sparing within a fatty liver. Referred to [facility] clinic for chronic elevation of LFTs and positive VICKIE to rule out autoimmune hepatitis. Appointment scheduled for 08/14/2024 Pt reminded of appointment today Assessment & Plan (03/16/2024 2:12 PM EDT): Patient with chronic persistent elevation of LFTs Hepatitis B and C Negative Denies alcohol use Elevated trigs, fatty liver ? 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 Evaluated by vocational services specialist Dr Tristen Miller ( Last note [...] since c/o dyspnea and palpitations. Evaluated by vocational services specialist Dr Tristen Miller ( Last note [...] since c/o dyspnea and palpitations. Evaluated by vocational services specialist Dr Tristen Miller ( Last note [...] for a f/u seen at our [facility] with c/o acute on chronic low back [...] was Normal. Patient was seen at the [facility] and they reviewed his MRI and recommended steroid injection/Pt for myofascial pain, pt declined back then. Today he is complaining of recurrent low back pain that radiates to both lower extremities Patient was seen at [facility], they recommended PT Assessment & Plan (09/08/2022 9:30 AM EST): Pt here for a f/u seen at our [facility] with c/o acute on chronic low back pain Had an x-ray of his LOS spine 05/06/2022 that was read as unremarkable previously with c/o persistent low back pain. He was referred to PT with no good results. Initial work up included plain films of his LS spine that were unremarkable. [facility], Previously there was evidence of muscle spasm, he was taking Naproxen with no good results, I added a muscle relaxant t Baclofen 10 mg po q 8 hrs prn. Pt states it did not help either. MRI of his [place] spine 11/2018 was Normal. Patient was seen at the [facility] and they reviewed his MRI and recommended steroid injection/Pt for myofascial pain, pt declined back then. Today he is complaining of recurrent low back pain that radiates to both lower extremities Plan: Will refer back to [facility] for evaluation Scrotal pain 08/11/2022 [...] under the care of [facility]. He used to follow with them every 6 months. Encounters * This document contains information received from the source organization and may not represent a complete record from that organization. Date Type Department Care Team Description 01/05/2025 Telephone [facility] [address] [place] [address] Rik Bearden MD chart prep 12/29/2024 10:00 AM EDT Clinical Support [facility] [address] [place] [address] Nicole Rubio, JAMSHID Opioid dependence in remission (CMS/HCC) (Primary Dx); Uncomplicated opioid dependence (CMS/HCC) 12/29/2024 Telephone [facility] [address] [place] [address] Merritt Germain MD 12/29/2024 Travel 12/27/2024 Patient Outreach [facility] [address] [place] [address] Rik Bearden MD Pre-visit Planning (SDOH negative. Tobacco screening negative. ) 12/26/2024 Orders Only GENERIC EXTERNAL DATA DEPARTMENT Provider, Generic External Data 12/26/2024 Refill [facility] [address] [place] [address] Nicole Rubio, JAMSHID Uncomplicated opioid dependence (CMS/HCC) 12/13/2024 2:30 PM EDT Office Visit [facility] [address] [facility] [place] [address] Briana Young, SHIRIN Neck pain on left side (Primary Dx) 12/13/2024 Travel 12/12/2024 Telephone [facility] [address] [place] [address] Florencia Arriola RN Lab Orders 12/11/2024 Orders Only [facility] [address] [place] [address] Sravanthi Summers ANP Transaminitis (Primary Dx) 12/01/2024 10:00 AM EDT Office Visit [facility] [address] [place] [address] Merritt Germain MD Opioid dependence in remission (CMS/HCC) (Primary Dx); Vaping nicotine dependence, tobacco product; Anxiety and depression; Panic attacks 12/01/2024 Travel 11/30/2024 Refill [facility] [address] [place] [address] Rik Bearden MD 11/24/2024 Refill [facility] [address] [place] [address] Adarsh Lassiter RN Uncomplicated opioid dependence (CMS/HCC) 11/07/2024 Telephone [facility] [address] [place] [address] Merritt Germain MD 11/05/2024 Refill [facility] [address] [place] [address] Rik Bearden MD 11/03/2024 10:15 AM EST Office Visit [facility] [address] [place] [address] Merritt Germain MD Uncomplicated opioid dependence (CMS/HCC) (Primary Dx); Vaping nicotine dependence, tobacco product 11/03/2024 Travel 10/27/2024 Refill [facility] [address] [place] [address] iNcole Rubio, JAMSHID Uncomplicated opioid dependence ([facility]) 10/26/2024 Orders Only GENERIC EXTERNAL DATA DEPARTMENT Provider, Generic External Data from Last 3 Months Immunizations Name Administration [...] 10:30 AM EDT Office Visit [facility] [address] [place] [phone] Rik Bearden MD [address] [place] [address] 02/23/2025 10:00 AM EDT Office Visit [facility] [address] [place] [address] Merritt Germain MD [address] [place] [address] Health Maintenance Due Date Last Done Comments [...] functioning is improved General No Nicole Rubio, direct support professional home health Procedure Name Priority Date/Time Associated Diagnosis Comments POCT HECTOR-14 URINE DRUG SCREEN Routine 12/29/2024 9:33 AM EDT Opioid dependence in remission (CMS/HCC) TESTOSTERONE, FREE (DIALYSIS) AND TOTAL,MS Routine 12/26/2024 1:29 PM EDT HEMATOCRIT Routine 12/26/2024 1:29 PM EDT HEMOGLOBIN [...] QL NAAT Routine 10/26/2024 3:53 AM EST HEPATITIS PANEL, GENERAL Routine 03/08/2024 2:12 PM EDT Transaminitis LIPID PANEL, STANDARD Routine 03/08/2024 2:12 PM EDT Hypertriglyceridem ia HIV 1/2 ANTIGEN/ANTIBODY, FOURTH GENERATION W/RFL Routine 03/27/2022 10:14 AM EDT from Last 3 Months or Most Recently Relevant to Health Maintenance Results * POCT HECTOR-14 Urine Drug Screen (12/29/2024 9:33 AM EDT) Only the most recent of3 resultswithin the time period is included. Pathologist [facility] THC Negative Cocaine Screen, Urine Negative Opiate [...] / Unknown 12/29/2024 9:33 AM EDT Merritt Germain MD POINT OF CARE TEST ENTER/EDIT ORDERABLES Final Result * Hemoglobin (12/26/2024 1:29 PM EDT) [facility] Hemoglobin 14.0 14.0 - 18.0 g/dl [facility] 12/26/2024 1:29 PM EDT 12/26/2024 1:29 PM EDT Generic External Data Provider LAB BLOOD ORDERAB LES Final Result Performing Organization Address City/[facility]/ZIP Co de Phone Number [facility] [address] [place] [phone] * (ABNORMAL) Hematocrit (12/26/2024 1:29 PM EDT) [facility] Hematocrit 40.2(L) 42.0 - 52.0 % [facility] 12/26/2024 1:29 PM EDT 12/26/2024 1:29 PM EDT Generic External Data Provider LAB BLOOD ORDERAB LES Final Result Performing Organization Address [facility] Co de Phone Number [facility] [address] [place] [phone] * (ABNORMAL) Testosterone, Free (Dialysis) And Total, MS (12/26/2024 1:29 PM EDT) Testosterone, Total 100(A) 250 - 1100 ng/dL [facility] Comment:Men with clinically significant hypogonadal symptoms and testosterone valuesrepeatedly in the range of the 200-300 ng/dL or less, may benefit fromtestosterone treatment after adequate risk and benefits counseling.For additional information, please refer tohttps://education.EntreMed.tuQuejaSuma/faq/QHB779(This link is being provided for informational/educational purposes only.)(Note)This test was developed and its analytical performancecharacteristics have been determined by [employer]. It hasnot been cleared or approved by the FDA. This assay hasbeen validated pursuant to the CLIA regulations and isused for clinical purposes. Testosterone, Free 20.4(A) 35.0 - 155.0 pg/mL [facility] Comment:(Note)This test was developed and its analytical performancecharacteristics have been determined by [employer]. It hasnot been cleared or approved by the FDA. This assay hasbeen validated pursuant to the CLIA regulations and isused for clinical purposes.MDFmed [id number] [address],[address] [place] [address] [phone] Neel Ray MD, PhDTHIS TEST WAS PERFORMED AT:[id number] [place] [phone] 8188TONY RAY MD,PHD 12/26/2024 1:29 PM EDT 12/26/2024 1:29 PM EDT us Generic External Data Provider LAB BLOOD ORDERAB LES Final Result [facility] [address] [place] [phone] * (ABNORMAL) Hepatic Function Panel (12/26/2024 1:29 PM EDT) Bilirubin, Total 0.6 0.0 - 1.0 mg/dL [facility] Bilirubin, Direct 0.1 0.0 - 0.5 mg/dL [facility] Aspartate Amino Transferase 41(H) 5 - 37 U/L [facility] Alanine Aminotransferase 97(H) 0 - 40 U/L [facility] Total Protein 7.0 6.5 - 8.0 g/dL [facility] Albumin Level 4.1 3.5 - 5.0 g/dL [facility] Alkaline Phosphatase 64 39 - 117 U/L [facility] Blood Venous blood specimen / Unknown 12/26/2024 1:29 PM EDT 12/26/2024 1:29 PM EDT us Rik Bates MD LAB BLOOD ORDERABLES Final Result Performing Organization Address City/State/[facility] Co de Phone Number [facility] [address] [place] [address] [phone] * XR KUB and Upright 2 Views (12/13/2024 3:31 PM EDT) Anatomical Region Laterality Modality Radiographic Peggy ging 12/13/2024 3:31 PM EDT Narrative 12/13/2024 3:53 PM EDT ?[facility] ?[address] ?[place] [address] ?XRay Report ? Signed ? Patient: Cody Shepard ?MR#: [id number] ?? 901 ? : 1980 ?Acct:[id number] ? Age/Sex: 44 / M ?ADM Date: 12/13/24 ? Loc: HO.HHCX ? Attending Dr: Briana Young ? Ordering Physician: Briana Young ?? Date of Service: 12/13/24 ?? Procedure(s): XR KUB ?? Accession Number(s): [id number] ? cc: Briana Young ? EXAMINATION: ??XR [...] signed by Shyam Lopez MD in OV> ?12/13/240 ? DD/ 1531 ? TD/TT: 12/13/24 1540 ? Senior Loss Control Specialist: ? Procedure Note Donnicoleter, Image - 12/13/[address] [address] XRay Report Signed Patient: Cody ShepardMR#: [id number] 901 : 1980Acct:[id number] Age/Sex: 44 / MADM Date: 12/13/24 Loc: .HHCX Attending Dr: Briana Young Ordering Physician: Briana Young Date of Service: 12/13/24 Procedure(s): XR KUB Accession Number(s): [id number] cc: Briana Young EXAMINATION: XR ABDOMEN 1 [...] 12/13/24 1550 DD/ 1531 TD/TT: 12/13/24 1540 Senior Loss Control Specialist: Briana Young SAXOPHONE TEACHER IMG XR PROCEDURES Final Result * XR Chest 2 Views (10/26/2024 4:15 AM EST) Anatomical Region Laterality Modality Chest Radiographic Peggy ging 10/26/2024 4:15 AM EST Narrative 10/26/2024 4:16 AM EST ? [facility] ?[address] ?[place] [address] ?XRay Report ? Signed ? Patient: Cody Shepard ?MR#: [id number] ?? 901 ? : 1980 ?Acct:[id number] ? Age/Sex: 44 / M ?ADM Date: 10/26/24 ? Loc: HO.ED ? Attending Dr: ? Ordering Physician: Generic ED Physician ?? Date of Service: 10/26/24 ?? Procedure(s): XR chest 2V ?? Accession Number(s): [id number] ? cc: Rik Flaherty MD; Generic ED [...] ? DD/ 4 ? TD/TT: 10/26/24414 ? Senior Loss Control Specialist: ? Procedure Note Rodrigue Blood - 10/26/[address] [address] XRay Report Signed Patient: Cody ShepardMR#: [id number] 901 : 1980Acct:[id number] Age/Sex: 44 / MADM Date: 10/26/24 Loc: HO.ED Attending Dr: Ordering Physician: Emiliano ED Physician Date of Service: 10/26/24 Procedure(s): XR chest 2V Accession Number(s): [id number] cc: Rik Flaherty MD; Generic ED Physician [...] in OV> 10/26/24415 DD/ 4 TD/TT: 10/26/24414 Senior Loss Control Specialist: [facility] External Provider IMG XR PROCEDURES Edited Result - Final * High Sensitivity Troponin I (10/26/2024 3:53 AM EST) Pathologist [facility] TROPONIN I HIGH SENSITIVITY 4.9 <3.5 - 35.0 ng/L [facility] Comment:The Gillespie high sens itivity Troponin-I results should beused in conjunction with other diagnostic information suchas ECG, clinical observations and information, and patientsymptoms to aid in the diagnosis of ND. 10/26/2024 3:53 AM EST 10/26/2024 3:58 AM EST Generic External Data Provider LAB BLOOD ORDERAB LES Final Result [facility] [address] [place] [phone] * SARS-CoV-2 RNA, Influenza A/B, and RSV RNA, Ql NAAT (10/26/2024 3:53 AM EST) Pathologist [facility] Influenza A PCR NEGATIVE Negative [facility] Influenza B PCR NEGATIVE Negative [facility] Resp Syncy Virus RNA Qual PCR NEGATIVE Negative [facility] SARS COV2 PCR NEGATIVE Negative [facility] Comment:All test results mus t [...] use by authorized laboratories.Testing performed on the [employer] GeneXpert utilizingreal-time RT-PCR.All SARS CoV2 and positive influenza A/B results arereported to [facility]. 10/26/2024 3:53 AM EST 10/26/2024 3:58 AM EST us Generic External Data Provider LAB MICROBIOLOGY - GENERAL ORDERABLES Final Result [facility] [address] [place] [address] [phone] * (ABNORMAL) CBC auto differential (10/26/2024 3:53 AM EST) White Blood Count 5.4 4.8 - 10.8 X10*3/uL [facility] Red Blood Count 4.78 4.60 - 5.80 X10*6/uL [facility] Hemoglobin 14.2 14.0 - 18.0 g/dl [facility] Hematocrit 40.6(L) 42.0 - 52.0 % [facility] Mean Corpuscular Volume 84.9 80.0 - 98.0 fL [facility] Mean Corpuscular Hemoglobin 29.7 27.0 - 33.0 pg [facility] Mean Corpuscular HGB Conc 35.0 31.0 - 36.0 g/dl [facility] Red Cell Distribution Width 11.9 11.0 - 16.0 % [facility] Platelet Count 158(L) 160 - 400 X10*3/uL [facility] Mean Platelet Volume 9.0(L) 9.4 - 12.4 fL [facility] Neutrophils Percent Auto 48.5 45 - 73 % [facility] Imm Gran Pct Auto 0.2 0.0 - 0.4 % [facility] Lymphocytes Percent Auto 34.7 20 - 40 % [facility] Monocytes Percent Auto 12.0(H) 2 - 11 % [facility] Eosinophils Percent Auto 3.7 0 - 4 % [facility] Basophils Percent Auto 0.9 0 - 2 % [facility] NRBC Pct Auto 0.0 0.0 - 0.2 /100WBC [facility] Neutrophils Absolute Auto 2.6 2.0 - 8.3 x10*3/uL [facility] Imm Gran Abs Auto 0.01 0.00 - 0.03 X10*3/uL [facility] Lymphocytes Absolute Auto 1.9 1.2 - 4.9 X10*3/uL [facility] Monocytes Absolute Auto 0.7 0.1 - 1.2 X10*3/uL [facility] Eosinophils Absolute Auto 0.2 0.0 - 0.4 X10*3/uL [facility] Basophils Absolute Auto 0.1 0.0 - 0.2 X10*3/uL [facility] NRBC Abs Auto 0.000 0.0 - 0.012 X10*3/uL [facility] 10/26/2024 3:53 AM EST 10/26/2024 3:58 AM EST us Generic External Data Provider LAB BLOOD ORDERAB LES Final Result [facility] [address] [place] [phone] * (ABNORMAL) Comprehensive Metabolic Panel (10/26/2024 3:53 AM EST) Sodium 142 135 - 145 mmol/L [facility] Potassium 4.1 3.3 - 5.1 mmol/L [facility] Chloride 108 96 - 108 mmol/L [facility] Carbon Dioxide 27 22 - 29 mmol/L [facility] Anion Gap 11(L) 12 - 20 [facility] Urea Nitrogen (BUN) 11 9 - 16 mg/dL [facility] Creatinine, Serum 0.85 0.5 - 1.4 mg/dL [facility] Creatinine Clr Calc Pharmacy 108.9 [facility] Comment:eGFR (calculated fro m the MDRD study equation) and eCrCl(calculated from the Cockcroft-Gault equation) are based ondifferent parameters and may not yield comparable results.If eCrCl result is absurd, please check patient'sheight/weight. Estimated Glomerular Filt Rate >60 [facility] Comment:Chronic Kidney Disea se: Estimated GFR < 60 mL/min/1.40o2Fcrqbd Kidney Disease: Estimated GFR < 15 mL/min/1.73m2 Glucose 114 60 - 115 mg/dL [facility] Calcium 9.1 8.4 - 10.2 mg/dL [facility] Bilirubin, Total 0.7 0.0 - 1.0 mg/dL [facility] Aspartate Amino Transferase 42(H) 5 - 37 U/L [facility] Alanine Aminotransferase 82(H) 0 - 40 U/L [facility] Total Protein 7.3 6.5 - 8.0 g/dL [facility] Albumin Level 3.8 3.5 - 5.0 g/dL [facility] Alkaline Phosphatase 63 39 - 117 U/L [facility] 10/26/2024 3:53 AM EST 10/26/2024 3:58 AM EST us Generic External Data Provider LAB BLOOD ORDERAB LES Final Result [facility] [address] [place] [phone] [phone] * Hepatitis A,B,C Profile (03/08/2024 2:12 PM EDT) Hepatitis A IgM NON-REAC TIVE Nonreactive [facility] Comment:For additional infor mation, please refer tohttp://education.Recochem/faq/CEP257(This link is being provided for informational/educational purposes only.)THIS TEST PERFORMED AT:[facility] [address] [phone] DIRECTOR: VIDYA ADAMS MD ~Hepatitis B Surface Antibody NON-REAC TIVE Nonreactive [facility] Comment:THIS TEST PERFORMED AT:[employer] [facility] [address] [phone] DIRECTOR: VIDYA ADAMS MD Hepatitis B Core Antibody NON-REAC TIVE Nonreactive [facility] Comment:For additional infor mation, please refer tohttp://[employer].Recochem/faq/DXL054(This link is being provided for informational/educational purposes only.)THIS TEST PERFORMED AT:[facility] [address] [phone] DIRECTOR: VIDYA ADAMS MD Hepatitis C Antibody NON-REAC TIVE Nonreactive [facility] Comment:HCV antibody was non -reactive. There is no laboratoryevidence of HCV infection.In most cases, no further action is required. However,if recent HCV exposure is suspected, a test for HCV RNA(test code 96693) is suggested.For additional information, please refer tohttp://Simple Beat/faq/RKD577(This link is being provided for informational/educational purposes only.)THIS TEST PERFORMED AT:[facility] [address] [phone] DIRECTOR: VIDYA ADAMS MD Hepatitis B Surface Ag NON-REAC TIVE Negative [facility] Comment:REFERENCE RANGE: NON -REACTIVEFor additional information, please refer tohttp://[employer].Recochem/faq/VBW466(This link is being provided for informational/educational purposes only.)THIS TEST PERFORMED AT:[facility] [address] [phone] DIRECTOR: VIDYA ADAMS MD Blood Venous blood specimen / Unknown 03/08/2024 2:12 PM EDT 03/08/2024 3:59 PM EDT Rik Bates MD LAB BLOOD ORDERABLES Final Result Performing Organization Address City/[facility]/ZIP Co de Phone Number [facility] [address] [place] [address] [phone] * (ABNORMAL) Lipid Panel, Standard (03/08/2024 2:12 PM EDT) Triglycerides 240(H) <150 mg/dL [facility] Comment:Desirable Triglyceri de: less than 150 mg/dLBorderline High Triglyceride 150-199 mg/dLHigh Triglyceride: 200-499 mg/dLVery High Triglyceride: greater than or equal to 5OO mg/dL Cholesterol 261(H) <200 mg/dL [facility] Comment:Desirable Cholestero l: less than 200 mg/dLBorderline High Cholesterol: 200-239 mg/dLHigh Cholesterol: greater than 239 mg/dL LDL Cholesterol Calculated 178(H) <100 mg/dL [facility] Comment:Desirable LDL: less than 100 mg/dLNear Optimal/Above Optimal LDL: 110- 129 mg/dLBorderline High LDL: 130-159 mg/dLHigh LDL: 160-189 mg/dLVery High LDL: greater than or equal to 190 mg/dL HDL Cholesterol 35(L) >40 mg/dL [facility] Comment:Desirable HDL: great er than 40 mg/dL Note: This HDL assay may give artificially low results in patients with liver disease. Blood Venous blood specimen / Unknown 03/08/2024 2:12 PM EDT 03/08/2024 3:59 PM EDT Rik Bates MD LAB BLOOD ORDERABLES Final Result [facility] [address] [place] [address] [phone] * HIV 1/2 ANTIGEN/ANTIBODY,FOURTH GENERATION W/RFL (03/27/2022 10:14 AM EDT) HIV-1/2 ANTIGEN AND ANTIBODIES, 4TH GENERATION W/ REFLEX NON-REACT MARAH NON-REACT MARAH [facility] Comment: HIV-1 antigen and HIV-1/HIV-2 [...] ? For additional information please refer to http://[employer].Recochem/faq/JYS040 (This link is being provided for informational/ educational purposes only.) ? The performance of this assay has not been clinically validated in patients less than 2 years old. ?? 03/27/2022 10:1 4 AM EDT us Merritt Germain MD LAB BLOOD ORDERABLES Final Res ult [facility] [address] from Last 3 Months or Most Recently Relevant to Health Maintenance Insurance [facility] < 65 [address] [place] [id number] Care Teams Product Lister Relationship Specialty Start Date End Date Rik Bearden MD [address] [place] [phone] PCP - General Internal Medicine 06/18/15
--- OUTSIDE RECORDS SUMMARY | 2025-01-08 15:21 | XMS_ITS | Encounter Summary ---
Author Organization [employer] Address [address] [place] [address] Care Team Providers Care Dock Worker Name Role Phone Rik Bearden MD Primary Care Provide r Reason for Visit * Reason Onset Date Comments Nurse Triage 08/16/2023 Encounter Details Date Type Department Care Team ([facility] st Contact Info) Description 08/16/2023 Telephone [facility] [address] [place] [address] Rik Bearden MD [address] [place], [place] [phone] Nurse Triage Social History Tobacco Use Types [...] call Pt reports was just in ED [facility] [place] 08/14/23. Pt reported dx of constipation. Pt has had BM since then but, Pt reports pain in area between anus and testicles, burning pain . Pain comes and goes but, is getting stronger each time it comes. Pt reports this pain is increasing in occurrence. Pt denies urinary symptoms but, feels this may be prostrate associated or scrotal. Advised Pt to returnto [facility] [place] [facility] Ed for further evaluation. Pt agreed with [...] Description 01/09/2025 10:30 AM EDT Office Visit [facility] [address] [place] [address] Rik Bearden MD [address] [place] [address] 02/23/2025 10:00 AM EDT Office Visit [facility] [address] [place] [address] Merritt Germain MD [address] [place], [place] [phone] documented as of this encounter Visit Diagnoses Not on filedocumented in this encounter Care Teams Dock Worker Relationship Specialty Start Date End Date Rik Bearden MD [address] [place] [address] [phone] PCP - General Internal Medicine 06/18/15 documented as of this encounter
--- OUTSIDE RECORDS SUMMARY | 2025-01-08 15:21 | XMS_ITS | Encounter Summary ---
Author Organization [employer] Address [address] [facility] [place] [address] Care Team Providers Care Industrial Aerial Installer Name Role Phone Rik Bearden MD Primary Care Provide r Reason for Visit * Reason Comments Med Refill Encounter Details Date Type Department Care Team ([facility] st Contact Info) Description 06/14/2024 Refill [facility] [address] [place] [address] Merritt Germain MD [address] [place] [address] Uncomplicated opioid dependence (CMS/HCC) Social History Tobacco [...] EDT Office Visit [facility] [address] [place] [phone] Rik Bearden MD [address] [place] [phone] 02/23/2025 10:00 AM EDT Office Visit [facility] [address] [place] [phone] Merritt Germain MD [address] [place] [phone] documented as of this encounter Visit Diagnoses Diagnosis Uncomplicated opioid dependence (CMS/HCC) documented in this encounter Additional Health Concerns Assessment Noted Time PHQ-9 Depression Total Score: 21 024 2:22 PM EDT documented as of this encounter Care Teams Industrial Aerial Installer Relationship Specialty Start Date End Date Rik Bearden MD [address] [place] [phone] PCP - General Internal Medicine 06/18/15 documented as of this encounter
== END 2025-01-08 14:27 | disposition home or self-care (01) ==
LOC: HO.HPS 13:49
PROVIDERS: PCP Internal Medicine; Visit Provider Hospitalist
DX: R06.02 Shortness of breath (principal); J34.2 Deviated nasal septum; G47.9 Sleep disorder, unspecified; R91.1 Solitary pulmonary nodule; R59.0 Localized enlarged lymph nodes; U09.9 Post COVID-19 condition, unspecified
CPT/HCPCS: 99214

== ENCOUNTER → 2025-01-08 13:48 | Outpatient (BNVA) | payer OTHER, SELFPAY | PROVIDERS: PCP Internal Medicine; Visit Provider Hospitalist | DX: E29.1 Testicular hypofunction (principal); R06.02 Shortness of breath; J34.2 Deviated nasal septum; G47.9 Sleep disorder, unspecified; R91.1 Solitary pulmonary nodule; R59.0 Localized enlarged lymph nodes; U09.9 Post COVID-19 condition, unspecified; F17.210 Nicotine dependence, cigarettes, uncomplicated | CPT/HCPCS: 99212 ==

== ENCOUNTER 2025-01-08 14:12 | Outpatient (AMB) | payer OTHER, SELFPAY ==
[2025-01-08 14:21] VITALS: BP 118/78; PULSE 74; O2SAT 99; BMI 28.1
--- NOTE | 2025-01-08 14:21 | MHC.OFFVIS ---
Vital Signs 01/08/25 14:21 Height 5 ft 6 in Weight 174 lb 2.643 oz BMI 28.1 BP 118/78 Blood Pressure Location Rt brachial Position Sitting Pulse 74 Pulse Source Pulse Oximeter Pulse Oximetry (%) 99 Oxygen Delivery Method Room Air Intake Visit Reasons: Hypogandism Intake Note: Patient present today for secondary hypogonadism follow up visit. Squeegee Tender Required: No Accompanied by: Self / Same As Patient Allergies shellfish derived Allergy (Intermediate, Verified 01/08/25 14:24) Rash Medication List - Last Reconciled 01/08/25 by Shyam Pablo MD acetaminophen (Tylenol Extra Strength) 500 mg PO Q6H PRN buprenorphine-naloxone 4-1 mg 1 film sublingual DAILY bupropion HCl XL 150 mg PO QAM calcium polycarbophil (Fiber Laxative (calcium polycarbophil)) 1,250 mg (2 x 625 mg) PO DAILY 30 days docusate sodium (Colace) 100 mg PO BID duloxetine 60 mg PO DAILY esomeprazole magnesium 40 mg PO DAILY gzrybqvfalo-fjhqjgpsh-aowqquuy 200-62.5-25 mcg (Trelegy Ellipta) 1 inh inhalation DAILY 30 days gabapentin 200 mg (2 x 100 mg) PO BEDTIME 30 days hydroxyzine HCl 25 mg PO BID lactulose 20 grams (30 mL) PO DAILY PRN mesalamine ER 1.5 grams (4 x 0.375 gram) PO DAILY mirtazapine 15 mg PO BEDTIME polyethylene glycol 3350 (Miralax) 17 grams PO DAILY sertraline 25 mg PO DAILY sucralfate 1 g PO BEDTIME testosterone 4 pumps topical DAILY 30 days HPI Comments Details: 43 YO Male with PMHx suboxone use who is seen in consultation at the request of his PCP for Hypogonadism. First diagnosed with Hypogonadism just recently with labs revealing low testosterone . Currently achieving spontaneous am erections, and unable to achieve erection when desired. Reports low libido. Decreased facial hair and shaving frequency. Denies any change in size or shape of testicles. Denies penile discharge or scrotal tenderness. Denies any history of mumps orchitis. Denies any head trauma. Denies history of DELFINO. but does snore at night with children who were conceived spontaneously no issues with fertility Sense of smell intact. admits headache but visual changes, gynecomastia or galactorrhea. Denies orthostatic symptoms, weight loss. Denies change in size of hands or feet. Denies hair loss, weight gain, cold intolerance. 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 Patientwas on testosterone gel 4 depressions per day but stopped therapy on his own The patient is a 44-year-old male presenting with concerns regarding low testosterone levels exacerbated by Suboxone use. Prescribed testosterone gel therapy has not been used regularly due to fears about increased prostate cancer risk, though this risk is minimized in individuals of his age. His testosterone levels have historically measured at approximately 100, significantly lower than the normal range, leading to potential future complications such as decreased bone density. Despite low testosterone, the patient does not report symptoms often associated with hypogonadism, such as a decrease in libido or energy. His reluctance to use hormone replacement therapy is further influenced by personal factors in his marriage, leading to sporadic use of the prescribed gel. 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 Mother No problems noted. Paternal Aunt Lung cancer Social History Alcohol intake: never Patient Tobacco Use Status: Former Tobacco user Tobacco use type: Cigarette Years Smoked: 23 Years e-Cigarette/Vaping Use: Currently Using Current occupational status: disabled Physical Exam Vital Signs: Last Vital Signs Pulse 74 01/08/25 14:21 BP 118/78 01/08/25 14:21 Pulse Ox 99 01/08/25 14:21 Oxygen Delivery Method Room Air 01/08/25 14:21 BMI result Body Mass Index 28.1 Assessment & Plan Assessment & Plan (1) Hypogonadism, testicular: Code(s): E29.1 - Testicular hypofunction Category: Medical Plan: This is a 43-year-old male with a history of hypogonadism which appears to be secondary in nature considering low inappropriate gonadotropins. Possible etiologies include the use of Suboxone which could suppress the gonadal axis. Workup including pituitary MRI was negative 1. 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 Addressing this, the prescription of daily testosterone gel was discussed to normalize testosterone levels and prevent associated complications, such as reduced bone density. Regular monitoring through serum testosterone and complete blood count tests after two months of consistent therapy was advised for efficacy assessment and potential side effect mitigation. During the visit, I engaged in a thorough discussion with the patient about his hypogonadism, attributed to prolonged Suboxone usage, leading to low testosterone levels. I clarified the necessity for a consistent testosterone replacement regime to mitigate the risks of low bone density and fracture and updated him on the negligible risk of prostate cancer development from testosterone therapy, especially in a 44-year-old with no family history. We agreed on regular follow-ups to monitor hormone levels and overall health. I emphasized that the patient's compliance with the therapy is crucial for achieving desired clinical outcomes, and blood work is planned in two months to determine the effectiveness of the current plan. - Start applying testosterone gel daily as prescribed to address low testosterone levels. - Ensure you take the testosterone gel every day consistently until advised otherwise. - Schedule and undergo the follow-up blood test for testosterone levels and blood count in two months. - Keep active to mitigate potential risk of blood clots. - Follow-up in three months to review therapy effectiveness and adjust as necessary. - Cancel the follow-up appointment if you decide not to take testosterone therapy. - Reach out for medical guidance if you experience any concerning symptoms or have any further questions about your treatment. The patient had an opportunity to ask questions regarding treatment plan. The patient expressed understanding and agreement with the above treatment plan. . Patient was informed and verbally consented to the use of an ambient scribe for clinic note documentation during this visit. Orders: Orders Testosterone, Free/Total 2 Months E29.1 - Testicular hypofunction Hematocrit 2 Months E29.1 - Testicular hypofunction Hemoglobin 2 Months E29.1 - Testicular hypofunction Coding Level of Care Code Est Pt Level 3 (07329) Diagnoses Hypogonadism, testicular E29.1
--- OUTSIDE RECORDS SUMMARY | 2025-01-08 15:46 | XMS_ITS | Encounter Summary ---
Author Organization [email or web address] Address [address] [facility] [place] [address] Care Team Providers Care Artificial Intelligence Specialist Name Role Phone Rik Bearden MD Primary Care Provide r Reason for Visit * Reason Onset Date Comments Nurse Triage 08/16/2023 Encounter Details Date Type Department Care Team ([facility] st Contact Info) Description 08/16/2023 Telephone [facility] [address] [place] [address] Rik Bearden MD [address] [place], [place] [phone] Nurse Triage Social History Tobacco Use Types [...] call Pt reports was just in ED [facility] [place] 08/14/23. Pt reported dx of constipation. Pt has had BM since then but, Pt reports pain in area between anus and testicles, burning pain . Pain comes and goes but, is getting stronger each time it comes. Pt reports this pain is increasing in occurrence. Pt denies urinary symptoms but, feels this may be prostrate associated or scrotal. Advised Pt to returnto [facility] Ed for further evaluation. Pt agreed with [...] 01/09/2025 10:30 AM EDT Office Visit [facility] [address] [place] [address] Rik Bearden MD [address] [place] [address] 02/23/2025 10:00 AM EDT Office Visit [facility] [address] [place] [address] Merritt Germain MD [address] [place], [place] [phone] documented as of this encounter Visit Diagnoses Not on filedocumented in this encounter Care Teams Artificial Intelligence Specialist Relationship Specialty Start Date End Date Rik Bearden MD [address] [place] [address] [phone] PCP - General Internal Medicine 06/18/15 documented as of this encounter
--- OUTSIDE RECORDS SUMMARY | 2025-01-08 15:46 | XMS_ITS | Encounter Summary ---
Author Organization [employer] Address [address] [facility] [address] [place] [address] Care Team Providers Care Director Medical Writing Name Role Phone Rik Bearden MD Primary Care Provide r Reason for Visit * Reason Comments Med Refill Encounter Details Date Type Department Care Team (Late Contact Info) Description 05/02/2023 Refill [facility] [address] [place] [address] Sravanthi Summers, ANP [address] [place] [address] Constipation, unspecified constipation type Social History Tobacco [...] Office Visit [facility] [address] [place] [phone] Rik Bearden MD [address] [place] [phone] 02/23/2025 10:00 AM EDT Office Visit [facility] [address] [place] [address] [phone] Merritt Germain MD [address] [place] [address] documented as of this encounter Visit Diagnoses Diagnosis Constipation, unspecified constipation type documented in this encounter Care Teams Director Medical Writing Relationship Specialty Start Date End Date Rik Bearden MD [address] [place] [phone] PCP - General Internal Medicine 06/18/15 documented as of this encounter
--- OUTSIDE RECORDS SUMMARY | 2025-01-08 15:46 | XMS_ITS | Clinical Summary ---
Author Organization [employer] Address [address] [place] [address] Care Team Providers Care Plate Former Name Role Phone Rik Bearden MD Primary [...] liver ? Pt under the care of [facility], last seen 01/2024 Liver US 03/2024 showed: Hepatomegaly, 16.5 cm. Increased hepatic parenchymal heterogeneity and echogenicity could be associated with hepatocellular disease/hepatic steatosis and substantially limits visualization. Hypoechoic areas within the right hepatic lobe are characteristic of focal sparing within a fatty liver. Referred to [facility] for chronic elevation of LFTs and positive VICKIE to rule out autoimmune hepatitis. Appointment scheduled for 08/14/2024 Pt reminded of appointment today Assessment & Plan (03/16/2024 2:12 PM EDT): Patient with chronic persistent elevation of LFTs Hepatitis B and C Negative Denies alcohol use Elevated trigs, fatty liver ? Pt under the care of [facility], last seen 01/2024 Liver US ordered, pending Will refer to [facility] for chronic elevation of LFTs and positive VICKIE to rule out autoimmune hepatitis Assessment & Plan (02/29/2024 12:43 PM EDT): Patient with chronic persistent elevation of LFTs Will obtain a Hepatitis Panel Pt under the care of 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 Evaluated by waste specialist Dr Tristen Miller ( Last note [...] since c/o dyspnea and palpitations. Evaluated by waste specialist Dr Tristen Miller ( Last note [...] since c/o dyspnea and palpitations. Evaluated by waste specialist Dr Tristen Miller ( Last note [...] for a f/u seen at our [facility] with c/o acute on chronic [...] was Normal. Patient was seen at the [facility] and they reviewed his MRI and recommended steroid injection/Pt for myofascial pain, pt declined back then. Today he is complaining of recurrent low back pain that radiates to both lower extremities Patient was seen at [facility], they recommended PT Assessment & Plan (09/08/2022 9:30 AM EST): Pt here for a f/u seen at our [facility] with c/o acute on chronic low back pain Had an x-ray of his LOS spine 05/06/2022 that was read as unremarkable previously with c/o persistent low back pain. He was referred to PT with no good results. Initial work up included plain films of his LS spine that were unremarkable. [facility], Previously there was evidence of muscle spasm, he was taking Naproxen with no good results, I added a muscle relaxant t Baclofen 10 mg po q 8 hrs prn. Pt states it did not help either. MRI of his [place] spine 11/2018 was Normal. Patient was seen at the [facility] and they reviewed his MRI and recommended steroid injection/Pt for myofascial pain, pt declined back then. Today he is complaining of recurrent low back pain that radiates to both lower extremities Plan: Will refer back to [facility] for evaluation Scrotal pain 08/11/2022 Assessment [...] under the care of [facility]. He used to follow with them every 6 months. Encounters * This document contains information received from the source organization and may not represent a complete record from that organization. Date Type Department Care Team Description 01/05/2025 Telephone [facility] [address] [place] [address] Rik Bearden MD chart prep 12/29/2024 10:00 AM EDT Clinical Support [facility] [address] [place] [address] Nicole Rubio, JAMSHID Opioid dependence in remission (CMS/HCC) (Primary Dx); Uncomplicated opioid dependence (CMS/HCC) 12/29/2024 Telephone [facility] [address] [place] [address] Merritt Germain MD 12/29/2024 Travel 12/27/2024 Patient Outreach [facility] [address] [place] [address] Rik Bearden MD Pre-visit Planning (SDOH negative. Tobacco screening negative. ) 12/26/2024 Orders Only GENERIC EXTERNAL DATA DEPARTMENT Provider, Generic External Data 12/26/2024 Refill [facility] [address] [facility] [place] [address] Nicole Rubio, JAMSHID Uncomplicated opioid dependence (CMS/HCC) 12/13/2024 2:30 PM EDT Office Visit [facility] [address] [facility] [place] [address] Briana Young, SHIRIN Neck pain on left side (Primary Dx) 12/13/2024 Travel 12/12/2024 Telephone [facility] [address] [place] [address] Florencia Arriola RN Lab Orders 12/11/2024 Orders Only [facility] [address] [place] [address] Sravanthi Summers ANP Transaminitis (Primary Dx) 12/01/2024 10:00 AM EDT Office Visit [facility] [address] [place] [address] Merritt Germain MD Opioid dependence in remission (CMS/HCC) (Primary Dx); Vaping nicotine dependence, tobacco product; Anxiety and depression; Panic attacks 12/01/2024 Travel 11/30/2024 Refill [facility] [address] [place] [address] Rik Bearden MD 11/24/2024 Refill [facility] [address] [place] [address] Adarsh Lassiter RN Uncomplicated opioid dependence (CMS/HCC) 11/07/2024 Telephone [facility] [address] [place] [address] Merritt Germain MD 11/05/2024 Refill [facility] [address] [place] [address] Rik Bearden MD 11/03/2024 10:15 AM EST Office Visit [facility] [address] [place] [address] Merritt Germain MD Uncomplicated opioid dependence (CMS/HCC) (Primary Dx); Vaping nicotine dependence, tobacco product 11/03/2024 Travel 10/27/2024 Refill [facility] [address] [place] [address] Nicole Rubio, JAMSHID Uncomplicated opioid dependence ([facility]) 10/26/2024 Orders Only GENERIC EXTERNAL DATA DEPARTMENT [...] EDT Office Visit [facility] [address] [place] [phone] Rik Bearden MD [address] [place] [phone] 02/23/2025 10:00 AM EDT Office Visit [facility] [address] [place] [phone] Merritt Germain MD [address] [place] [phone] Health Maintenance Due Date Last Done Comments [...] functioning is improved General No Nicole Rubio, system sales consultant Procedure Name Priority Date/Time Associated Diagnosis Comments [...] resultswithin the time period is included. Pathologist [facility] Negative Cocaine Screen, Urine Negative Opiate [...] Result * Hemoglobin (12/26/2024 1:29 PM EDT) [facility] Hemoglobin 14.0 14.0 - 18.0 g/dl [facility] 12/26/2024 1:29 PM EDT 12/26/2024 1:29 PM EDT Generic External Data Provider LAB BLOOD ORDERAB LES Final Result Performing Organization Address City/[facility]/ZIP Co de Phone Number [facility] [address] [place] [phone] * (ABNORMAL) Hematocrit (12/26/2024 1:29 PM EDT) [facility] Hematocrit 40.2(L) 42.0 - 52.0 % [facility] 12/26/2024 1:29 PM EDT 12/26/2024 1:29 PM EDT Generic External Data Provider LAB BLOOD ORDERAB LES Final Result Performing Organization Address [facility] Co de Phone Number [facility] [address] [place] [phone] * (ABNORMAL) Testosterone, Free (Dialysis) And Total, MS (12/26/2024 1:29 PM EDT) Testosterone, Total 100(A) 250 - 1100 ng/dL [facility] Comment:Men with clinically significant hypogonadal symptoms and testosterone valuesrepeatedly in the range of the 200-300 ng/dL or less, may benefit fromtestosterone treatment after adequate risk and benefits counseling.For additional information, please refer tohttps://education.[employer]/faq/HYL540(This link is being provided for informational/educational purposes only.)(Note)This test was developed and its analytical performancecharacteristics have been determined by [employer]. It hasnot been cleared or approved by the FDA. This assay hasbeen validated pursuant to the CLIA regulations and isused for clinical purposes. Testosterone, Free 20.4(A) 35.0 - 155.0 pg/mL [facility] Comment:(Note)This test was developed and its analytical performancecharacteristics have been determined by [employer]. It hasnot been cleared or approved by the FDA. This assay hasbeen validated pursuant to the CLIA regulations and isused for clinical purposes.MDFmed [id number] [place] [address],[address] [place] [address] [phone] Neel Ray MD, PhDTHIS TEST WAS PERFORMED AT:[id number] [place] [address] [place] [phone] [id number] RAY MD,PHD 12/26/2024 1:29 PM EDT 12/26/2024 1:29 PM EDT us Generic External Data Provider LAB BLOOD ORDERAB LES Final Result [facility] [address] [place] [phone] * (ABNORMAL) Hepatic Function Panel (12/26/2024 1:29 PM EDT) Bilirubin, Total 0.6 0.0 - 1.0 mg/dL [facility] Bilirubin, Direct 0.1 0.0 - 0.5 mg/dL [facility] Aspartate Amino Transferase 41(H) 5 - 37 U/L [facility] Alanine Aminotransferase 97(H) 0 - 40 U/L [facility] Total Protein 7.0 6.5 - 8.0 g/dL [facility] Albumin Level 4.1 3.5 - 5.0 g/dL [facility] Alkaline Phosphatase 64 39 - 117 U/L [facility] Blood Venous blood specimen / Unknown 12/26/2024 1:29 PM EDT 12/26/2024 1:29 PM EDT us Rik Bates MD LAB BLOOD ORDERABLES Final Result Performing Organization Address City/State/[facility] Co de Phone Number [facility] [address] [place] [phone] * XR KUB and Upright 2 Views (12/13/2024 3:31 PM EDT) Anatomical Region Laterality Modality Radiographic Peggy ging 12/13/2024 3:31 PM EDT Narrative 12/13/2024 3:53 PM EDT ?[facility] ?[address] ?[place] [address] ?XRay Report ? Signed ? Patient: Cody Shepard ?MR#: [id number] ?? 901 ? : 1980 ?Acct:[id number] ? Age/Sex: 44 / M ?ADM Date: 12/13/24 ? Loc: HO.HHCX ? Attending Dr: Briana Young ? Ordering Physician: Briana Young ?? Date of Service: 12/13/24 ?? Procedure(s): XR KUB ?? Accession Number(s): [id number] ? cc: Briana Young ? EXAMINATION: ??XR [...] DD/ 1531 ? TD/TT: 12/13/24 1540 ? Drive Thru Order Taker: ? Procedure Note Donnicoleter, Image - 12/13/[address] [address] XRay Report Signed Patient: Cody ShepardMR#: [id number] 901 : 1980Acct:[id number] Age/Sex: 44 / MADM Date: 12/13/24 Loc: .HHCX Attending Dr: Briana Young Ordering Physician: Briana Young Date of Service: 12/13/24 Procedure(s): XR KUB Accession Number(s): [id number] cc: Briana Young EXAMINATION: XR ABDOMEN 1 [...] 12/13/24 1550 DD/ 1531 TD/TT: 12/13/[address] Thru Order Taker: Briana Young SUPERVISOR TAPING IMG XR PROCEDURES Final Result * XR Chest 2 Views (10/26/2024 4:15 AM EST) Anatomical Region Laterality Modality Chest Radiographic Peggy ging 10/26/2024 4:15 AM EST Narrative 10/26/2024 4:16 AM EST ? [facility] ?[address] ?[place] [address] ?XRay Report ? Signed ? Patient: Cody Shepard ?MR#: [id number] ?? 901 ? : 1980 ?Acct:[id number] ? Age/Sex: 44 / M ?ADM Date: 10/26/24 ? Loc: HO.ED ? Attending Dr: ? Ordering Physician: Generic ED Physician ?? Date of Service: 10/26/24 ?? Procedure(s): XR chest 2V ?? Accession Number(s): [id number] ? cc: Rik Flaherty MD; Generic ED [...] ? DD/ 4 ? TD/TT: 10/26/24414 ? Drive Thru Order Taker: ? Procedure Note Rodrigue Blood - 10/26/[address] [address] XRay Report Signed Patient: Cody ShepardMR#: [id number] 901 : 1980Acct:[id number] Age/Sex: 44 / MADM Date: 10/26/24 Loc: HO.ED Attending Dr: Ordering Physician: Emiliano ED Physician Date of Service: 10/26/24 Procedure(s): XR chest 2V Accession Number(s): [id number] cc: Rik Flaherty MD; Generic ED Physician [...] in OV> 10/26/24415 DD/ 4 TD/TT: 10/26/24414 Drive Thru Order Taker: [facility] External Provider IMG XR PROCEDURES Edited Result - Final * High Sensitivity Troponin I (10/26/2024 3:53 AM EST) Pathologist [facility] TROPONIN I HIGH SENSITIVITY 4.9 <3.5 - 35.0 ng/L [facility] Comment:The Gillespie high sens itivity Troponin-I results should beused in conjunction with other diagnostic information suchas ECG, clinical observations and information, and patientsymptoms to aid in the diagnosis of [place]. 10/26/2024 3:53 AM EST 10/26/2024 3:58 AM EST Generic External Data Provider LAB BLOOD ORDERAB LES Final Result [facility] [address] [place] [phone] * SARS-CoV-2 RNA, Influenza A/B, and RSV RNA, Ql NAAT (10/26/2024 3:53 AM EST) Pathologist [facility] Influenza A PCR NEGATIVE Negative [facility] Influenza B PCR NEGATIVE Negative [facility] Resp Syncy Virus RNA Qual PCR NEGATIVE Negative [facility] SARS COV2 PCR NEGATIVE Negative [facility] Comment:All test results mus t [...] use by authorized laboratories.Testing performed on the [employer] GeneXpert utilizingreal-time RT-PCR.All SARS CoV2 and positive influenza A/B results arereported to [facility]. 10/26/2024 3:53 AM EST 10/26/2024 3:58 AM EST us Generic External Data Provider LAB MICROBIOLOGY - GENERAL ORDERABLES Final Result [facility] [address] [place] [phone] [phone] * (ABNORMAL) CBC auto differential (10/26/2024 3:53 AM EST) White Blood Count 5.4 4.8 - 10.8 X10*3/uL [facility] Red Blood Count 4.78 4.60 - 5.80 X10*6/uL [facility] Hemoglobin 14.2 14.0 - 18.0 g/dl [facility] Hematocrit 40.6(L) 42.0 - 52.0 % [facility] Mean Corpuscular Volume 84.9 80.0 - 98.0 fL [facility] Mean Corpuscular Hemoglobin 29.7 27.0 - 33.0 pg [facility] Mean Corpuscular HGB Conc 35.0 31.0 - 36.0 g/dl [facility] Red Cell Distribution Width 11.9 11.0 - 16.0 % [facility] Platelet Count 158(L) 160 - 400 X10*3/uL [facility] Mean Platelet Volume 9.0(L) 9.4 - 12.4 fL [facility] Neutrophils Percent Auto 48.5 45 - 73 % [facility] Imm Gran Pct Auto 0.2 0.0 - 0.4 % [facility] Lymphocytes Percent Auto 34.7 20 - 40 % [facility] Monocytes Percent Auto 12.0(H) 2 - 11 % [facility] Eosinophils Percent Auto 3.7 0 - 4 % [facility] Basophils Percent Auto 0.9 0 - 2 % [facility] NRBC Pct Auto 0.0 0.0 - 0.2 /100WBC [facility] Neutrophils Absolute Auto 2.6 2.0 - 8.3 x10*3/uL [facility] Imm Gran Abs Auto 0.01 0.00 - 0.03 X10*3/uL [facility] Lymphocytes Absolute Auto 1.9 1.2 - 4.9 X10*3/uL [facility] Monocytes Absolute Auto 0.7 0.1 - 1.2 X10*3/uL [facility] Eosinophils Absolute Auto 0.2 0.0 - 0.4 X10*3/uL [facility] Basophils Absolute Auto 0.1 0.0 - 0.2 X10*3/uL [facility] NRBC Abs Auto 0.000 0.0 - 0.012 X10*3/uL [facility] 10/26/2024 3:53 AM EST 10/26/2024 3:58 AM EST us Generic External Data Provider LAB BLOOD ORDERAB LES Final Result [facility] [address] [place] [phone] * (ABNORMAL) Comprehensive Metabolic Panel (10/26/2024 3:53 AM EST) Sodium 142 135 - 145 mmol/L [facility] Potassium 4.1 3.3 - 5.1 mmol/L [facility] Chloride 108 96 - 108 mmol/L [facility] Carbon Dioxide 27 22 - 29 mmol/L [facility] Anion Gap 11(L) 12 - 20 [facility] Urea Nitrogen (BUN) 11 9 - 16 mg/dL [facility] Creatinine, Serum 0.85 0.5 - 1.4 mg/dL [facility] Creatinine Clr Calc Pharmacy 108.9 [facility] Comment:eGFR (calculated fro m the MDRD study equation) and eCrCl(calculated from the Cockcroft-Gault equation) are based ondifferent parameters and may not yield comparable results.If eCrCl result is absurd, please check patient'sheight/weight. Estimated Glomerular Filt Rate >60 [facility] Comment:Chronic Kidney Disea se: Estimated GFR < 60 mL/min/1.95w0Apahhr Kidney Disease: Estimated GFR < 15 mL/min/1.73m2 Glucose 114 60 - 115 mg/dL [facility] Calcium 9.1 8.4 - 10.2 mg/dL [facility] Bilirubin, Total 0.7 0.0 - 1.0 mg/dL [facility] Aspartate Amino Transferase 42(H) 5 - 37 U/L [facility] Alanine Aminotransferase 82(H) 0 - 40 U/L [facility] Total Protein 7.3 6.5 - 8.0 g/dL [facility] Albumin Level 3.8 3.5 - 5.0 g/dL [facility] Alkaline Phosphatase 63 39 - 117 U/L [facility] 10/26/2024 3:53 AM EST 10/26/2024 3:58 AM EST us Generic External Data Provider LAB BLOOD ORDERAB LES Final Result [facility] [address] [place] [address] [phone] * Hepatitis A,B,C Profile (03/08/2024 2:12 PM EDT) Hepatitis A IgM NON-REAC TIVE Nonreactive [facility] Comment:For additional infor mation, please refer tohttp://education.uiu/faq/GLP912(This link is being provided for informational/educational purposes only.)THIS TEST PERFORMED AT:[facility] [address] [phone] DIRECTOR: VIDYA ADAMS MD ~Hepatitis B Surface Antibody NON-REAC TIVE Nonreactive [facility] Comment:THIS TEST PERFORMED AT:[facility] [address] [phone] DIRECTOR: VIDYA ADAMS MD Hepatitis B Core Antibody NON-REAC TIVE Nonreactive [facility] Comment:For additional infor mation, please refer tohttp://[employer]Cast[employer].uiu/faq/OKM793(This link is being provided for informational/educational purposes only.)THIS TEST PERFORMED AT:[facility] [address] [phone] DIRECTOR: VIDYA ADAMS MD Hepatitis C Antibody NON-REAC TIVE Nonreactive [facility] Comment:HCV antibody was non -reactive. There is no laboratoryevidence of HCV infection.In most cases, no further action is required. However,if recent HCV exposure is suspected, a test for HCV RNA(test code 19270) is suggested.For additional information, please refer tohttp://[employer]faq/EIU674(This link is being provided for informational/educational purposes only.)THIS TEST PERFORMED AT:[facility] [address] [phone] DIRECTOR: VIDYA ADAMS MD Hepatitis B Surface Ag NON-REAC TIVE Negative [facility] Comment:REFERENCE RANGE: NON -REACTIVEFor additional information, please refer tohttp://[employer]Cast[employer].uiu/faq/MGO728(This link is being provided for informational/educational purposes only.)THIS TEST PERFORMED AT:[facility] [address] [phone] DIRECTOR: VIDYA ADAMS MD Blood Venous blood specimen / Unknown 03/08/2024 2:12 PM EDT 03/08/2024 3:59 PM EDT Rik Bates MD LAB BLOOD ORDERABLES Final Result Performing Organization Address City/[facility]/ZIP Co de Phone Number [facility] [address] [place] [address] [phone] * (ABNORMAL) Lipid Panel, Standard (03/08/2024 2:12 PM EDT) Triglycerides 240(H) <150 mg/dL [facility] Comment:Desirable Triglyceri de: less than 150 mg/dLBorderline High Triglyceride 150-199 mg/dLHigh Triglyceride: 200-499 mg/dLVery High Triglyceride: greater than or equal to 5OO mg/dL Cholesterol 261(H) <200 mg/dL [facility] Comment:Desirable Cholestero l: less than 200 mg/dLBorderline High Cholesterol: 200-239 mg/dLHigh Cholesterol: greater than 239 mg/dL LDL Cholesterol Calculated 178(H) <100 mg/dL [facility] Comment:Desirable LDL: less than 100 mg/dLNear Optimal/Above Optimal LDL: 110- 129 mg/dLBorderline High LDL: 130-159 mg/dLHigh LDL: 160-189 mg/dLVery High LDL: greater than or equal to 190 mg/dL HDL Cholesterol 35(L) >40 mg/dL [facility] Comment:Desirable HDL: great er than 40 mg/dL Note: This HDL assay may give artificially low results in patients with liver disease. Blood Venous blood specimen / Unknown 03/08/2024 2:12 PM EDT 03/08/2024 3:59 PM EDT Rik Bates MD LAB BLOOD ORDERABLES Final Result [facility] [address] [place] [phone] [phone] * HIV 1/2 ANTIGEN/ANTIBODY,FOURTH GENERATION W/RFL (03/27/2022 10:14 AM EDT) HIV-1/2 ANTIGEN AND ANTIBODIES, 4TH GENERATION W/ REFLEX NON-REACT MARAH NON-REACT MARAH [facility] Comment: HIV-1 antigen and HIV-1/HIV-2 [...] ? For additional information please refer to http://YouCastr.uiu/faq/WJQ130 (This link is being provided for informational/ educational purposes only.) ? The performance of this assay has not been clinically validated in patients less than 2 years old. ?? 03/27/2022 10:1 4 AM EDT us Merritt Germain MD LAB BLOOD ORDERABLES Final Res ult [facility] [address] from Last 3 Months or Most Recently Relevant to Health Maintenance Insurance [facility] ONE CARE < 65 [place] [id number] Care Teams Plate Former Relationship Specialty Start Date End Date Rik Bearden MD [address] [place] [phone] PCP - General Internal Medicine 06/18/15
--- OUTSIDE RECORDS SUMMARY | 2025-01-08 15:46 | XMS_ITS | Encounter Summary ---
Author Organization [employer] Address [address] [place] [address] Care Team Providers Care Vocational Rehabilitation Supervisor Name Role Phone Rik Bearden MD Primary Care Provide r Reason for Visit * Reason Comments Med Refill Encounter Details Date Type Department Care Team ([facility] st Contact Info) Description 09/19/2023 Refill [facility] [address] [place] [address] Merritt Germain MD [address] [place] [address] Uncomplicated opioid dependence (CMS/HCC) Social History Tobacco [...] Description 01/09/2025 10:30 AM EDT Office Visit [facility] [address] [place] [phone] Rik Bearden MD [address] [place] [phone] 02/23/2025 10:00 AM EDT Office Visit [facility] [address] [place] [phone] Merritt Germain MD [address] [place] [phone] documented as of this encounter Visit Diagnoses Diagnosis Uncomplicated opioid dependence (CMS/[facility]) documented in this encounter Care Teams Vocational Rehabilitation Supervisor Relationship Specialty Start Date End Date Rik Bearden MD [address] [place] [phone] PCP - General Internal Medicine 06/18/15 documented as of this encounter
--- OUTSIDE RECORDS SUMMARY | 2025-01-08 15:46 | XMS_ITS | Encounter Summary ---
Author Organization [employer] Address [address] [facility] [address] 7t [place] [address] Care Team Providers Care Grease Buffer Name Role Phone Rik Bearden MD Primary Care Provide r Reason for Visit * Reason Onset Date Comments chart prep 01/05/2025 Encounter Details Date Type Department Care Team ([facility] st Contact Info) Description 01/05/2025 Telephone [facility] 230 [place] [address] Rik Bearden MD 230 [place], [place] [phone] chart prep Social History Tobacco Use Types [...] Description 01/09/2025 10:30 AM EDT Office Visit [facility] [address] [place] [address] Rik Bearden MD [address] [place] [address] 02/23/2025 10:00 AM EDT Office Visit [facility] [address] [place] [address] Merritt Germain MD [address] [place] [address] documented as of this encounter Goals Goal [...] documented as of this encounter Care Teams Grease Buffer Relationship Specialty Start Date End Date Rik Bearden MD 230 [place] [address] PCP - General Internal Medicine 06/18/15 documented as of this encounter
--- OUTSIDE RECORDS SUMMARY | 2025-01-08 15:46 | XMS_ITS | Encounter Summary ---
Author Organization [employer] Address [address] [facility] [address] 7t [place] [address] Care Team Providers Care Parts Counter Specialist Name Role Phone Rik Bearden MD Primary Care Provide r Reason for Visit * Reason Comments Med Refill Encounter Details Date Type Department Care Team ([facility] st Contact Info) Description 06/14/2024 Refill [facility] [address] [place] [address] Merritt Germain MD 230 [place] [address] Uncomplicated opioid dependence (CMS/HCC) Social History Tobacco [...] is your housing situation today? I have chrsitiano العراقي 11/23/[address] you [...] Description 01/09/2025 10:30 AM EDT Office Visit [facility] [address] [place] [address] Rik Bearden MD [address] [place] [address] 02/23/2025 10:00 AM EDT Office Visit [facility] [address] [place] [address] Merritt Germain MD [address] [place] [address] documented as of this encounter Visit Diagnoses Diagnosis Uncomplicated opioid dependence (CMS/HCC) documented in this encounter Additional Health Concerns Assessment Noted Time PHQ-9 Depression Total Score: 21 024 2:22 PM EDT documented as of this encounter Care Teams Parts Counter Specialist Relationship Specialty Start Date End Date Rik Beraden MD [address] [place] [address] PCP - General Internal Medicine 06/18/15 documented as of this encounter
--- OUTSIDE RECORDS SUMMARY | 2025-01-08 15:46 | XMS_ITS | Encounter Summary ---
Author Organization [employer] Address [address] [facility] [address] 7t [place] [address] Care Team Providers Care Cyber Threat Analyst Name Role Phone Rik Bearden MD Primary Care Provide r Reason for Visit * Reason Onset Date Comments Med Refill 11/01/2023 Encounter Details Date Type Department Care Team ([facility] st Contact Info) Description 11/01/2023 Telephone [facility] 230 [place] [address] Rik Bearden MD 230 [place], [place] [phone] Med Refill Social History Tobacco Use Types [...] MG SL film To be sent to: [facility]/pharmacy [address] [place] [address] - [address] [place] [address] documented in this encounter Plan of Treatment Upcoming Encounters Date Type Department Care Team (Late st Contact Info) Description 01/09/2025 10:30 AM EDT Office Visit [facility] [address] [place] [address] Rik Bearden MD [address] [place] [address] 02/23/2025 10:00 AM EDT Office Visit [facility] [address] [place] [address] Merritt Germain MD [address] [place] [address] documented as of this encounter Visit Diagnoses Not on filedocumented in this encounter Care Teams Cyber Threat Analyst Relationship Specialty Start Date End Date Rik Bearden MD 230 [place] [address] PCP - General Internal Medicine 06/18/15 documented as of this encounter
--- OUTSIDE RECORDS SUMMARY | 2025-01-08 15:46 | XMS_ITS | Encounter Summary ---
Author Organization [employer] Address [address] [facility] [address] 7t [place] [address] Care Team Providers Care Utility Porter Name Role Phone Rik Bearden MD Primary Care Provide r Reason for Visit * Reason Comments Med Change Request Encounter Details Date Type Department Care Team ([facility] st Contact Info) Description 10/01/2024 Refill [facility] 230 [place] [address] Rik Bearden MD 230 [place] [address] Social History Tobacco Use Types Packs/Day Years [...] Office Visit [facility] [address] [place] [address] Rik Bearden MD [address] [place] [address] 02/23/2025 10:00 AM EDT Office Visit [facility] [address] [place] [address] Merritt Germain MD [address] [place] [address] documented as of this encounter Visit Diagnoses Not on filedocumented in this encounter Additional Health Concerns Assessment Noted Time PHQ-9 Depression Total Score: 14 024 1:11 PM EST documented as of this encounter Care Teams Utility Porter Relationship Specialty Start Date End Date Rik Bearden MD [address] [place] [address] PCP - General Internal Medicine 06/18/15 documented as of this encounter
--- OUTSIDE RECORDS SUMMARY | 2025-01-08 15:46 | XMS_ITS | Encounter Summary ---
Author Organization [employer] Address 75 [facility] 7t [place] [address] Care Team Providers Care Compressor Repairer Name Role Phone Rik Bearden MD Primary Care Provide r Reason for Visit * Reason Onset Date Comments Triage 12/28/2022 Encounter Details Date Type Department Care Team ([facility] st Contact Info) Description 12/28/2022 Telephone [facility] 230 [place] [address] Rik Bearden MD 230 [place], [place] [phone] Triage Social History Tobacco Use Types Packs/Day [...] Triage call Pt reports being seen in [facility] 12[place]25 for pain under arm /rib area [...] to report ED visit on 12/25/[address] [facility]. Seen for . Patient advised will forward to team nurse for follow up. Patient still has pain around rib area (stabbing pain) and sore throat. documented in this encounter Plan of Treatment Upcoming Encounters Date Type Department Care Team (Late st Contact Info) Description 01/09/2025 10:30 AM EDT Office Visit [facility] [address] [place] [address] Rik Bearden MD 230 [place] [address] 02/23/2025 10:00 AM EDT Office Visit [facility] [address] [place] [address] [phone] Merritt Germain MD 230 [place], [place] [phone] documented as of this encounter Visit Diagnoses Diagnosis Uncomplicated opioid dependence (CMS/HCC) documented in this encounter Care Teams Compressor Repairer Relationship Specialty Start Date End Date Rik Bearden MD [address] [place] [address] [phone] PCP - General Internal Medicine 06/18/15 documented as of this encounter
--- OUTSIDE RECORDS SUMMARY | 2025-01-08 15:46 | XMS_ITS | Encounter Summary ---
Author Organization [employer] Address [address] [facility] [address] 7t [place] [address] Care Team Providers Care Thermodynamics Engineer Name Role Phone Rik Bearden MD Primary Care Provide r Reason for Visit * Reason Comments Med Refill Encounter Details Date Type Department Care Team ([facility] st Contact Info) Description 04/30/2024 Refill [facility] 230 [place] [address] Rik Bearden MD 230 [place] [address] Other tobacco product nicotine dependence, uncomplicated Social [...] 01/09/2025 10:30 AM EDT Office Visit [facility] [address] [place] [address] Rik Bearden MD [address] [place] [address] 02/23/2025 10:00 AM EDT Office Visit [facility] [address] [place] [address] Merritt Germain MD [address] [place] [address] documented as of this encounter Visit Diagnoses Diagnosis Other tobacco product nicotine dependence, uncomplicated documented in this encounter Additional Health Concerns Assessment Noted Time PHQ-9 Depression Total Score: 21 024 2:22 PM EDT documented as of this encounter Care Teams Thermodynamics Engineer Relationship Specialty Start Date End Date Rik Bearden MD [address] [place] [phone] PCP - General Internal Medicine 06/18/15 documented as of this encounter
--- OUTSIDE RECORDS SUMMARY | 2025-01-08 15:46 | XMS_ITS | Clinical Summary ---
Author Organization [facility] [place] [address] Care Team Providers Care Home Lighting Adviser Name Role Phone Unavailable Primary Care Provider [...]
--- OUTSIDE RECORDS SUMMARY | 2025-01-08 15:46 | XMS_ITS | Encounter Summary ---
Author Organization [employer] Address 75 [facility] 7 [place] [address] Care Team Providers Care Flatwork Tier Name Role Phone Rik Bearden MD Primary Care Provide r Reason for Visit * Reason Onset Date Comments Nurse Triage 04/12/2023 Encounter Details Date Type Department Care Team ([facility] st Contact Info) Description 04/12/2023 Telephone [facility] 230 [place] [address] Rik Bearden MD 230 [place], [place] [phone] Nurse Triage Social History Tobacco Use Types [...] accepted this outcome Please contact pt at [phone] (Singaporean) documented in this encounter Plan of Treatment Upcoming Encounters Date Type Department Care Team (Late st Contact Info) Description 01/09/2025 10:30 AM EDT Office Visit [facility] [address] [place] [address] Rik Bearden MD [address] [place] [phone] 02/23/2025 10:00 AM EDT Office Visit [facility] [address] [place] [address] Merritt Germain MD [address] [place] [address] documented as of this encounter Visit Diagnoses Not on filedocumented in this encounter Care Teams Flatwork Tier Relationship Specialty Start Date End Date Rik Bearden MD 230 [place] [address] PCP - General Internal Medicine 06/18/15 documented as of this encounter
--- OUTSIDE RECORDS SUMMARY | 2025-01-08 15:46 | XMS_ITS | Encounter Summary ---
Author Organization [employer] Address [address] [facility] [address] 7t [place] [address] Care Team Providers Care Forest Technology Professor Name Role Phone Rik Bearden MD Primary Care Provide r Reason for Visit * Reason Comments Med Change Request Encounter Details Date Type Department Care Team ([facility] st Contact Info) Description 08/29/2023 Refill [facility] 230 [place] [address] Sravanthi Summers, ANP 230 [place] [address] Constipation, unspecified constipation type Social History Tobacco [...] EDT Office Visit [facility] [address] [place] [address] Rik Bearden MD [address] [place] [address] 02/23/2025 10:00 AM EDT Office Visit [facility] [address] [place] [address] Merritt Germain MD [address] [place] [address] documented as of this encounter Visit Diagnoses Diagnosis Constipation, unspecified constipation type documented in this encounter Care Teams Forest Technology Professor Relationship Specialty Start Date End Date Rik Bearden MD [address] [place] [phone] PCP - General Internal Medicine 06/18/15 documented as of this encounter
--- OUTSIDE RECORDS SUMMARY | 2025-01-08 15:46 | XMS_ITS | Encounter Summary ---
Author Organization [employer] Address [address] [facility] [address] 7t [place] [address] Care Team Providers Care Federal Mediation Commissioner Name Role Phone Rik Bearden MD Primary Care Provide r Reason for Visit * Reason Comments Med Change Request Encounter Details Date Type Department Care Team ([facility] st Contact Info) Description 11/30/2024 Refill [facility] 230 [place] [address] Rik Bearden MD 230 [place] [address] Social History Tobacco Use Types Packs/Day Years [...] Description 01/09/2025 10:30 AM EDT Office Visit [facility] [address] [place] [address] Rik Bearden MD [address] [place] [address] 02/23/2025 10:00 AM EDT Office Visit [facility] [address] [place] [address] Merritt Germain MD [address] [place] [address] documented as of this encounter Visit Diagnoses Not on filedocumented in this encounter Additional Health Concerns Assessment Noted Time PHQ-9 Depression Total Score: 14 024 1:11 PM EST documented as of this encounter Care Teams Federal Mediation Commissioner Relationship Specialty Start Date End Date Rik Bearden MD [address] [place] [address] PCP - General Internal Medicine 06/18/15 documented as of this encounter
--- OUTSIDE RECORDS SUMMARY | 2025-01-08 15:46 | XMS_ITS | Encounter Summary ---
Author Organization [employer] Address [address] [facility] [address] 7t [place] [address] Care Team Providers Care Phlebotomy Support Tech Name Role Phone Rik Bearden MD Primary Care Provide r Reason for Visit * Reason Comments Med Refill Encounter Details Date Type Department Care Team ([facility] st Contact Info) Description 03/26/2023 Refill [facility] 230 [place] [address] Rik Bearden MD 230 [place], [place] [phone] Heartburn Social History Tobacco Use Types Packs/Day [...] 01/09/2025 10:30 AM EDT Office Visit [facility] [address] [facility] [place] [address] Rik Bearden MD [address] [facility] [place] [address] 02/23/2025 10:00 AM EDT Office Visit [facility] [address] [facility] [place] [address] Merritt Germain MD [address] [facility] [place], [place] [phone] documented as of this encounter Visit Diagnoses Diagnosis Heartburn documented in this encounter Care Teams Phlebotomy Support Tech Relationship Specialty Start Date End Date Rik Bearden MD [facility] [place], [place] [phone] PCP - General Internal Medicine 06/18/15 documented as of this encounter
== END 2025-01-08 14:34 | disposition home or self-care (01) ==
LOC: HO.ENCR 14:13
PROVIDERS: PCP Internal Medicine; Visit Provider Internal Medicine Endocrinology, Diabetes & Metabolism
DX: E29.1 Testicular hypofunction (principal)
CPT/HCPCS: 99213

== ENCOUNTER 2025-01-15 16:39 | Emergency (ER) | payer OTHER, SELFPAY ==
[2025-01-15 16:45] VITALS: BP 128/88; PULSE 69; RESP 18; TEMP 36.9; O2SAT 97; BMI 28.1
--- NOTE | 2025-01-15 16:47 | ED_ITS ---
HPI - General Adult General Chief complaint: Urogenital-Male Stated complaint: ?UTI Time Seen by Provider: 01/15/25 17:19 Source: patient Mode of arrival: ambulatory Limitations: no limitations History of Present Illness ED Provider: Dr. Merrill HPI narrative: 44 year old male PMH: Crohn's disease, carpal tunnel syndrome sleep issues, hemorroids, fibrromyalgia, constipation, anxiety who presents to the ER for penile burning it is at the base of the shaft of the penis all the time not worse with urination. He is sexually active but has not seen any lesions. He saw his PCP and had normal labs Related Data Home Medications ?Medication ?Instructions ?Recorded ?Confirmed bupropion HCl 150 mg 24 hr tablet, 150 mg PO QAM 06/04/20 01/08/25 extended release mirtazapine 15 mg tablet 15 mg PO BEDTIME 03/10/23 01/08/25 duloxetine 60 mg capsule,delayed 60 mg PO DAILY 12/09/23 01/08/25 release hydroxyzine HCl 25 mg tablet 25 mg PO BID 05/30/24 01/08/25 sertraline 25 mg tablet 25 mg PO DAILY 05/30/24 01/08/25 buprenorphine 4 mg-naloxone 1 mg 1 film sublingual DAILY 01/01/25 01/08/25 sublingual film Previous Rx's ?Medication ?Instructions ?Recorded acetaminophen 500 mg tablet 500 mg PO Q6H PRN fever or pain 03/08/23 (Tylenol Extra Strength) #14 tabs calcium polycarbophil 625 mg 1,250 mg (2 x 625 mg) PO DAILY 30 07/14/23 tablet (Fiber Laxative (calcium days #60 tabs polycarbophil)) lactulose 20 gram/30 mL oral 20 g (30 mL) PO DAILY PRN 08/14/23 solution constipation #1,200 mL gabapentin 100 mg capsule 200 mg (2 x 100 mg) PO BEDTIME 30 01/10/24 days #60 caps mesalamine 0.375 gram 1.5 g (4 x 0.375 gram) PO DAILY 04/17/24 capsule,extended release 24 hr #360 caps testosterone 4 pump topical DAILY 30 days #150 06/27/24 grams docusate sodium 100 mg capsule 100 mg PO BID #90 caps 07/07/24 (Colace) fluticasone fur. 200 mcg-umeclid 1 inh inhalation DAILY 30 days #60 10/13/24 62.5 mcg-vilant 25 mcg ea inhalat.powder (Trelegy Ellipta) sucralfate 1 gram tablet 1 g PO BEDTIME #90 tabs 11/06/24 polyethylene glycol 3350 17 17 g PO DAILY constipation #119 12/10/24 gram/dose oral powder (Miralax) grams esomeprazole magnesium 40 mg 40 mg PO DAILY #90 caps 01/01/25 capsule,delayed release Allergies Allergy/AdvReac Type Severity Reaction Status Date / Time shellfish derived Allergy Intermediate Rash Verified 01/15/25 16:47 Review of Systems Review of Systems: Review of systems: General: Patient denies any fever chills recent illness or falls Musculoskeletal: Denies back pain or body aches or other injuries HEENT: denies headache, runny nose, ear pain Respiratory: denies shortness of breath, cough Cardiovascular: no chest pain or palpitations : denies dysuria, frequency, penile buring Abdomen: no nausea vomiting denies abdominal pain Extremities: no swelling, no pain Skin: no diaphoresis Yes all other systems are reviewed and are negative [facility] Past Medical History Medical History Hypogonadism, testicular Hilar lymphadenopathy Fibromyalgia GERD (gastroesophageal reflux disease) Scrotal pain Rhinosinusitis 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 Mother No problems noted. Paternal Aunt Lung cancer Social History Social History Alcohol intake: never Patient Tobacco Use Status: Former Tobacco user Tobacco use type: Cigarette Years Smoked: 23 Years e-Cigarette/Vaping Use: Currently Using Advance Directives: No Advance Directives Information Provided: Yes Do you have a plan to hurt others: No Plan Current occupational status: disabled Physical Exam ED Vital Signs: Vital Signs - 24 hr 01/15/25 16:45 Temperature 98.4 F Pulse Rate 69 Respiratory Rate 18 Blood Pressure 128/88 Pulse Oximetry 97 Oxygen Delivery Method Room Air BMI result Body Mass Index 28.1 General: Well-appearing well-nourished in no signs of distress HEENT: Normocephalic atraumatic Neck: No signs of JVD, no masses no tenderness or lymphadenopathy Cardiovascular: Regular rate and rhythm Respiratory: Clear to auscultation bilaterally Abdomen: Soft nontender no masses Focused penile exam he complains of burning around the shaft and base of his penis. no lesion no hernias palpable Extremities: Normal pedal pulses no signs of edema Skin: Dry warm no rashes Back: No tenderness full ROM Course Course Course Narrative: RME, this is a rapid medical exam performed by Rubén Dupree please refer to primary provider for complete H&P- 44 year old female presents for evaluation of burning with urination. Denies any new sexual partners or urethral discharge. Plan for UA and CTNG testing. Medical Decision Making Medical Decision Making [facility] Narrative: patient does not want to get a urine sample he states he had a negative bone he wants to see a specialist I will give him information follow up with urologist I do feel comfortable discharging the patient home I will set up for discharge Differential Diagnosis Differential Diagnoses: The differential diagnosis associated with the presentation includes cellulitis STI burning UTI Discharge Plan Discharge Clinical Impression: Penile pain Patient Disposition: Home, Self-Care Additional Instructions: you were seen today in the emergency department for penile pain. You were offered repeat urine studies BUN opted to forego that and follow up with her doctor. If you have any other concerns please return to the ER. Prescriptions: No Action mesalamine 0.375 gram capsule,extended release 24hr 1.5 g PO DAILY Qty: 360 0RF testosterone 20.25 mg/1.25 gram (1.62 %) gel in metered-dose pump 4 pump topical DAILY 30 Days Qty: 150 4RF Rx Instructions: apply 2 pump amount over max area of EACH upper arm and shoulder sucralfate 1 gram tablet 1 g PO BEDTIME Qty: 90 0RF lactulose 20 gram/30 mL solution 20 g PO DAILY PRN (Reason: constipation) Qty: 1200 0RF polyethylene glycol 3350 [Miralax] 17 gram/dose powder 17 g PO DAILY Qty: 119 0RF acetaminophen [Tylenol Extra Strength] 500 mg tablet 500 mg PO Q6H PRN (Reason: fever or pain) Qty: 14 0RF bupropion HCl 150 mg tablet extended release 24 hr 150 mg PO QAM buprenorphine-naloxone 4-1 mg film 1 film sublingual DAILY esomeprazole magnesium 40 mg capsule,delayed release(DR/EC) 40 mg PO DAILY Qty: 90 2RF Trelegy Ellipta 200-62.5-25 mcg blister with device 1 inh inhalation DAILY 30 Days Qty: 60 12RF mirtazapine 15 mg tablet 15 mg PO BEDTIME calcium polycarbophil [Fiber Laxative (ca polycarbo)] 625 mg tablet 1,250 mg PO DAILY 30 Days Qty: 60 3RF duloxetine 60 mg capsule,delayed release(DR/EC) 60 mg PO DAILY gabapentin 100 mg capsule 200 mg PO BEDTIME 30 Days Qty: 60 6RF sertraline 25 mg tablet 25 mg PO DAILY hydroxyzine HCl 25 mg tablet 25 mg PO BID docusate sodium [Colace] 100 mg capsule 100 mg PO BID Qty: 90 2RF Referrals: Jose Parsons MD [Physician] - (Please call to follow up for your penile pain.) Print Language: Austrian
--- OUTSIDE RECORDS SUMMARY | 2025-01-15 17:24 | XMS_ITS | Encounter Summary ---
Author Organization [employer] Address [address] [facility] [address] 7t [place] [address] Care Team Providers Care Incident Handler Name Role Phone Rik Bearden MD Primary Care Provide r Reason for Visit * Reason Comments Med Refill Encounter Details Date Type Department Care Team ([facility] st Contact Info) Description 03/26/2023 Refill [facility] 230 [place] [address] Rik Bearden MD 230 [place], [place] [phone] Heartburn Social History Tobacco Use Types Packs/Day [...] Care Team (Late st Contact Info) Description 02/23/2025 10:00 AM EDT Office Visit [facility] 230 [place] [address] Merritt Germain MD 230 [place] [address] documented as of this encounter Visit Diagnoses Diagnosis Heartburn documented in this encounter Care Teams Incident Handler Relationship Specialty Start Date End Date Rik Bearden MD 230 [place] [address] PCP - General Internal Medicine 06/18/15 documented as of this encounter
--- OUTSIDE RECORDS SUMMARY | 2025-01-15 17:24 | XMS_ITS | Encounter Summary ---
Author Organization [employer] Address [address] [facility] 7 [place] [address] Care Team Providers Care Cytology Laboratory Manager Name Role Phone Rik Bearden MD Primary Care Provide r Reason for Visit * Reason Comments Med Refill Encounter Details Date Type Department Care Team (Late Contact Info) Description 05/02/2023 Refill [facility] [address] [place] [address] Sravanthi Summers, TAMMY [address] [place] [address] Constipation, unspecified constipation type Social History Tobacco [...] Upcoming Encounters Date Type Department Care Team ([facility] Contact Info) Description 02/23/2025 10:00 AM EDT Office Visit [facility] [address] [place] [phone] Merritt Germain MD [address] [place] [address] documented as of this encounter Visit Diagnoses Diagnosis Constipation, unspecified constipation type documented in this encounter Care Teams Cytology Laboratory Manager Relationship Specialty Start Date End Date Rik Bearden MD [address] [place] [phone] PCP - General Internal Medicine 06/18/15 documented as of this encounter
--- OUTSIDE RECORDS SUMMARY | 2025-01-15 17:24 | XMS_ITS | Encounter Summary ---
Author Organization [employer] Address [address] [facility] 7 [place] [address] Care Team Providers Care Resource Protection Specialist Name Role Phone Rik Bearden MD Primary Care Provide r Reason for Visit * Reason Onset Date Comments Nurse Triage 04/12/2023 Encounter Details Date Type Department Care Team ([facility] st Contact Info) Description 04/12/2023 Telephone [facility] MEDICINE [address] [place] [address] Rik Bearden MD [address] [place], [place] [phone] Nurse Triage Social History Tobacco Use Types [...] accepted this outcome Please contact pt at [phone] ([place]) documented in this encounter Plan of Treatment Upcoming Encounters Date Type Department Care Team (Late st Contact Info) Description 02/23/2025 10:00 AM EDT Office Visit [facility] MED[facility]INE [address] [place] [address] Merritt Germain MD [address] [place] [address] documented as of this encounter Visit Diagnoses Not on filedocumented in this encounter Care Teams Resource Protection Specialist Relationship Specialty Start Date End Date Rik Bearden MD [address] [place] [address] PCP - General Internal Medicine 06/18/15 documented as of this encounter
--- OUTSIDE RECORDS SUMMARY | 2025-01-15 17:24 | XMS_ITS | Encounter Summary ---
Author Organization [employer] Address 75 [facility] 7 [place] [address] Care Team Providers Care Counselor Dormitory Name Role Phone Rik Bearden MD Primary Care Provide r Reason for Visit * Reason Onset Date Comments Triage 12/28/2022 Encounter Details Date Type Department Care Team ([facility] st Contact Info) Description 12/28/2022 Telephone [facility] MED[facility]INE [address] [place] [address] Rik Bearden MD [address] [place], [place] [phone] Triage Social History Tobacco Use Types Packs/Day [...] Triage call Pt reports being seen [place] [facility] 12[place]25 for pain under arm /rib area [...] to report ED visit on 12/25/22 at [facility]. Seen for . Patient advised will forward to team nurse for follow up. Patient still has pain around rib area (stabbing pain) and sore throat. documented in this encounter Plan of Treatment Upcoming Encounters Date Type Department Care Team (Late st Contact Info) Description 02/23/2025 10:00 AM EDT Office Visit [facility] MED[facility] [address] [place] [phone] Merritt Germain MD [address] [place] [address] documented as of this encounter Visit Diagnoses Diagnosis Uncomplicated opioid dependence (CMS/HCC) documented in this encounter Care Teams Counselor Dormitory Relationship Specialty Start Date End Date Rik Bearden MD [address] [place], [place] [phone] PCP - General Internal Medicine 06/18/15 documented as of this encounter
--- OUTSIDE RECORDS SUMMARY | 2025-01-15 17:24 | XMS_ITS | Clinical Summary ---
Author Organization [facility] [place] [address] Care Team Providers Care Continuous Improvement Facilitator Name Role Phone Unavailable Primary Care Provider [...]
--- OUTSIDE RECORDS SUMMARY | 2025-01-15 17:24 | XMS_ITS | Encounter Summary ---
Author Organization [employer] Address [address] [facility] [address] [place] [address] Care Team Providers Care Tube Turner Name Role Phone Rik Bearden MD Primary Care Provide r Reason for Visit * Reason Comments Med Refill Encounter Details Date Type Department Care Team ([facility] st Contact Info) Description 09/19/2023 Refill [facility] MED[facility]INE [address] [place] [address] Merritt Germain MD [address] [place] [address] Uncomplicated opioid dependence (CMS/HCC) Social History Tobacco [...] Description 02/23/2025 10:00 AM EDT Office Visit [facility] MED[facility]INE [address] [place] [phone] Merritt Germain MD [address] [place] [address] documented as of this encounter Visit Diagnoses Diagnosis Uncomplicated opioid dependence (CMS/HCC) documented in this encounter Care Teams Tube Turner Relationship Specialty Start Date End Date Rik Bearden MD [address] [place] [phone] PCP - General Internal Medicine 06/18/15 documented as of this encounter
--- OUTSIDE RECORDS SUMMARY | 2025-01-15 17:24 | XMS_ITS | Clinical Summary ---
Author Organization [employer] Address [address] [place] [address] Care Team Providers Care Mixing Machine Tender Name Role Phone Rik Bearden [...] mouth 2 times daily. 03/10/20 23 Active hydrocortison e (Anusol-HC) 2.5 % rectal creamIndicati ons:External hemorrhoid Insert into the rectum every 12 [...] per day. 30 tablet 11 02/07/20 24 Active docusate sodium (Colace) 100 MG capsuleIndica tions:Lower abdominal guarding Take 1 capsule (100 mg) by mouth Once per day. 180 capsule 1 07/03/20 24 025 Active clonazePAM (KlonoPIN) 0.5 MG tablet Take [...] Buprenorphine HCl-Naloxone HCl (Suboxone) 8-2 MG SL filmIndicatio ns:Opioid dependence in remission (CMS/HCC) Place 1 Film under the tongue Once per day. 28 Film 1 12/30/19 25 025 Active Buprenorphine HCl-Naloxone HCl (Suboxone) 8-2 MG SL filmIndicatio ns:Opioid dependence in remission (CMS/HCC) Place 1 Film under the tongue Once per day. 28 Film 1 12/30/19 25 025 Active clotrimazole- betamethasone (Lotrisone) creamIndicati ons:Tinea cruris Apply topically 2 times daily. 45 g 01/10/20 25 Active hydrOXYzine HCl (Atarax) 25 MG tablet TAKE 1 TABLET BY MOUTH TWICE A DAY 60 tablet 1 01/16/20 25 Active hydrOXYzine HCl (Atarax) 25 MG tablet TAKE 1 TABLET BY MOUTH TWICE A DAY 60 tablet 1 11/08/19 25 025 Discontinued Buprenorphine HCl-Naloxone HCl (Suboxone) 8-2 MG SL filmIndicatio ns:Uncomplica gabi opioid dependence (CMS/HCC) Place 1 Film under the tongue Once per day for 28 days. 28 Film 11/25/19 25 025 Discontinued(R eorder (will not trigger notification to Pharmacy)) ibuprofen 400 MG tabletIndicat ions:Neck pain on left side Take 1 tablet (400 mg) by mouth every 6 (six) hours if needed for moderate pain for up to 14 days. 56 tablet 12/14/19 25 025 Buprenorphine HCl-Naloxone HCl (Suboxone) 8-2 MG SL filmIndicatio ns:Uncomplica gabi opioid dependence (CMS/HCC) Place 1 Film under the tongue Once per day for 28 days. Do not start before December 29, 2024. 28 Film 12/30/19 25 025 Discontinued(D ose adjustment) Active Problems Problem Noted Date Diagnosed Date Crohn's disease of large intestine with complica tion 08/24/2024 Assessment & Plan (01/09/2025 10:35 AM EDT): Dr Toro Persaud GI suspects pt has Chron's disease, last seen 01/01/2025 Patient was started on Entyvio and Esomeprazole Assessment & Plan (08/24/2024 1:29 PM EST): [...] shoulder and NCS to rule out radiculopathy Hypogonadism in male 03/16/2024 Assessment & Plan (01/09/2025 10:34 AM EDT): Pt with hypogonadism Under the care of Endocrinology Dr Pablo, last note from 01/08/2025 Work up included a Normal prolactin. Dr. Pablo suspects the Suboxone is contributing to this. MRI of brain 06/13/2024 Unremarkable contrast enhanced MRI of the brain. Please note that this routine MRI is not tailored to evaluation of the sellar contents which are suboptimally assessed. No gross abnormality of the sellar or parasellar region. He is on Testosterone Gel. Will continue to follow with Dr. Pablo Assessment & Plan (08/24/2024 12:55 PM EST): [...] pain 04/22/2023 Transaminitis 03/30/2023 Assessment & Plan (01/09/2025 10:39 AM EDT): Patient with chronic persistent elevation of LFTs Hepatitis B and C Negative, Denies alcohol use Pt under the care of [facility], last seen 01/01/2025 Liver US 03/2024 showed:Hepatomegaly, 16.5 cm. Increased hepatic parenchymal heterogeneity and echogenicity could be associated with hepatocellular disease/hepatic steatosis and substantially limits visualization. Hypoechoic areas within the right hepatic lobe are characteristic of focal sparing within a fatty liver. Previously referred to [facility] for chronic elevation of LFTs and positive VICKIE to rule out autoimmune hepatitis. Appointment scheduled for 08/14/2024 Assessment & Plan (05/30/2024 1:15 PM EDT): Patient with chronic persistent elevation of LFTs Hepatitis B and C Negative Denies alcohol use Elevated trigs, fatty liver ? Pt under the care of [facility], last seen 01/2024 Liver US 03/2024 showed: Hepatomegaly, 16.5 cm. Increased hepatic parenchymal heterogeneity and echogenicity could be associated with hepatocellular disease/hepatic steatosis and substantially limits visualization. Hypoechoic areas within the right hepatic lobe are characteristic of focal sparing within a fatty liver. Referred to [facility] for chronic elevation of LFTs and positive VICKIE to rule out autoimmune hepatitis. Appointment scheduled for 08/14/2024 Pt reminded of appointment today Assessment & Plan (03/16/2024 2:12 PM EDT): Patient with chronic persistent elevation of LFTs Hepatitis B and C Negative Denies alcohol use Elevated trigs, fatty liver ? 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 Evaluated by critical care specialist Dr Tristen Miller ( Last note 01/08/2025) 1 year follow recommended by Dr Tristen Miller and to continue on Trelegy CT chest 08/08/2024 IMPRESSION: Nonspecific partially calcified lymph nodes, mediastinum and right pulmonary hilum, smaller since prior exam. Previous granulomatous disease processes and or sarcoidosis versus less likely a lymphoproliferative disorder should be considered. Probable hepatic steatosis. Assessment & Plan (08/24/2024 12:58 PM EST): Patient with Hx of Covid-19 infection, ever since c/o dyspnea and palpitations. Evaluated by critical care specialist Dr Tristen Miller ( Last note [...] since c/o dyspnea and palpitations. Evaluated by critical care specialist Dr Tristen Miller ( Last note [...] since c/o dyspnea and palpitations. Evaluated by critical care specialist Dr Tristen Miller ( Last note [...] findings to explain patient's source of pain Chronic tension-type headache, not intractable 0 09/07/2022 [...] here for a f/u seen at our [facility] with c/o acute on chronic low back pain Had an x-ray of his LOS spine 05/06/2022 that was read as unremarkable previously with c/o persistent low back pain. He was referred to PT with no good results. Initial work up included plain films of his LS spine that were unremarkable. [facility], Previously there was evidence of muscle spasm, he was taking Naproxen with no good results, I added a muscle relaxant t Baclofen 10 mg po q 8 hrs prn. Pt states it did not help either. MRI of his LS spine 11/2018 was Normal. Patient was seen at the [facility] and they reviewed his MRI and recommended steroid injection/Pt for myofascial pain, pt declined back then. Today he is complaining of recurrent low back pain that radiates to both lower extremities Patient was seen at [facility], they recommended PT Assessment & Plan (09/08/2022 9:30 AM EST): Pt here for a f/u seen at our [facility] with c/o acute on chronic low back pain Had an x-ray of his LOS spine 05/06/2022 that was read as unremarkable previously with c/o persistent low back pain. He was referred to PT with no good results. Initial work up included plain films of his LS spine that were unremarkable. [facility], Previously there was evidence of muscle spasm, he was taking Naproxen with no good results, I added a muscle relaxant t Baclofen 10 mg po q 8 hrs prn. Pt states it did not help either. MRI of his LS spine 11/2018 was Normal. Patient was seen at the [facility] and they reviewed his MRI and recommended steroid injection/Pt for myofascial pain, pt declined back then. Today he is complaining of recurrent low back pain that radiates to both lower extremities Plan: Will refer back to [facility] for evaluation Scrotal pain 08/11/2022 Assessment & Plan (09/07/2022 2:52 PM EST): Patient with intermittent c/o of penile pain Treated for acute prostatitis with no improvement of symptoms. CT/NG negative Exam: normal with no pathology noted. referred to Urology for evaluation, las note on record from April 2022 Hypertriglyceridemia [...] under the care of [facility]. He used to follow with them every 6 months. Resolved Problems Problem Noted Date Diagnosed Date Resolved Date Low testosterone in male 03/16/202402/2025 Assessment & Plan (03/16/2024 1:00 PM EDT): Pt with c/o low libido Recent Testosterone Free and Total were low Etiology ? Plan: Endocrinology evaluation Throat pain in adult 09/07/2022 025 Assessment & Plan (09/07/2022 3:21 PM EST): Pt with intermittent c/o throat pain, treated previously for presumptive viral and infectious etiologies, seen in the ER on previous occassions. As part of his work up he had a CT of his neck without contrast at [facility] ER on 07/17/2022 that showed no acute pathology and likely reactive lymh nodes. Prior to that he had a CT of the maxillofacial bones that showed rightward nasal septal deviation. Pt was referred to ENT for that Encounters * This document contains information received from the source organization and may not represent a complete record from that organization. 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 (Primary Dx); Hypogonadism in male; Crohn's disease of large intestine with complication (CMS/HCC); Transaminitis; Tinea cruris 01/09/2025 Travel 01/05/[address] [address] Rik Bearden MD chart prep 12/29/2024 10:00 AM EDT Clinical Support [address] [address] Nicole Rubio, RN Opioid dependence in remission (CMS/HCC) (Primary Dx); Uncomplicated opioid dependence (CMS/HCC) 12/29/[address] [address] Merritt Germain MD 12/29/2024 Travel 12/27/2024 Patient Outreach [facility] [address] [place], [place] [phone] Rik Bearden MD Pre-visit Planning (SDOH negative. Tobacco screening negative. ) 12/26/2024 Orders Only GENERIC EXTERNAL DATA DEPARTMENT Provider, Generic External Data 12/26/2024 Refill [address] [place] [address] Nicole Rubio, RN Uncomplicated opioid dependence (CMS/HCC) 12/13/2024 2:30 PM EDT Office Visit [address] [address] Briana Young NP Neck pain on left side (Primary Dx) 12/13/2024 Travel 12/12/[address] [address] Florencia Arriola, barrel loader and cleaner Orders 12/11/2024 Orders Only [address] [address] Sravanthi Summers ANP Transaminitis (Primary Dx) 12/01/2024 10:00 AM EDT Office Visit [address] [address] Merritt Germain MD Opioid dependence in remission (CMS/HCC) (Primary Dx); Vaping nicotine dependence, tobacco product; Anxiety and depression; Panic attacks 12/01/2024 Travel 11/30/2024 Refill [facility] [address] [place] [address] Rik Bearden MD 11/24/2024 Refill [facility] [address] [place] [address] Adarsh Lassiter RN Uncomplicated opioid dependence (CMS/HCC) 11/07/2024 Telephone [facility] [address] [place] [address] Merritt Germain MD 11/05/2024 Refill [facility] [address] [place] [address] Rik Bearden MD 11/03/2024 10:15 AM EST Office Visit [facility] [address] [place] [address] Merritt Germain MD Uncomplicated opioid dependence (CMS/HCC) (Primary Dx); Vaping nicotine dependence, tobacco product 11/03/2024 Travel 10/27/2024 Refill [facility] [address] [place] [address] Nicole Rubio, RN Uncomplicated opioid dependence ([facility]/HCC) 10/26/2024 Orders Only GENERIC EXTERNAL DATA DEPARTMENT [...] Sign Reading Time Taken Comments Blood Pressure 136/84 01/09/2025 10:31 AM EDT Pulse 63 01/09/2025 10:31 AM EDT Temperature 36.1 ??C (97 ??F) 01/09/2025 10:31 AM EDT Respiratory Rate 16 01/09/2025 10:31 AM EDT Oxygen Saturation 98% 01/09/2025 10:31 AM EDT Inhaled Oxygen Concentration - - Weight 79 kg (174 lb 2 oz) 01/09/2025 10:31 AM E DT Height 167.6 cm (5' 6 ) 01/09/2025 10:31 AM EDT Body Mass Index 28.1 01/09/2025 10:31 AM EDT Plan of Treatment Upcoming Encounters Date Type Department Care Team (Late st Contact Info) Description 02/23/2025 10:00 AM EDT Office Visit [facility] [address] [place] [address] Merritt Germain MD [address] [place] [address] Health Maintenance Due Date Last Done Comments Family Planning (PISQ) 1995 COVID-19 Vaccine (3 - 2023-2 5 season) 2024 06/26/2022, 05/18/2022 Influenza Vaccine (#1) 2024 Hepatitis B Vaccines (3 of 3 - 19+ 3-dose series) 10/19/2024 08/24/2024, 03/16/2024 Alcohol/Substance Use Screening 08/24/2025 08/24/2024 Depression Screening 12/11/2025 12/11/2024, 12/11/2024 SDOH Screening 12/27/2025 12/27/2024 Tobacco Screening 01/09/2026 01/09/2025 Lipid Panel 03/08/2029 03/08/2024, 08/13/2021 Zoster Vaccines [...] daily functioning is improved General No Nicole Rubio RN Procedures Procedure Name Priority Date/Time Associated Diagnosis Comments POCT URINALYSIS DIPSTICK Routine 01/09/2025 11:05 AM EDT Hypogonadism in male Tinea cruris POCT HECTOR-14 URINE DRUG SCREEN Routine 12/29/2024 [...] Relevant to Health Maintenance Results * POCT Urinalysis (01/09/2025 11:05 AM EDT) Color, UA Yellow Clarity, UA Clear Glucose, UA Negative Bilirubin, UA Negative Ketones, UA Negative Spec Grav, UA 1.025 Blood, UA Negative Negative, None Detected pH, UA 6.0 Protein, UA Negative Urobilinogen, UA 0.2 Leukocytes, UA Negative Negative, Rare, Trace Nitrite, UA Negative Negative, None Detected Appearance, UA Yellow QC Media Lot # [id number] Lot# Expiration Date ,[id number] Urine 01/09/2025 11:0 5 AM EDT Rik Bates MD POINT OF CARE TEST EN TER/EDIT ORDERABLES Final Result * POCT HECTOR-14 Urine Drug Screen (12/29/2024 [...] procedure / Unknown 12/29/2024 9:33 AM EDT Result [facility] Merritt Germain MD POINT OF CARE TEST ENTER/EDIT ORDERABLES Final Result * Hemoglobin (12/26/2024 1:29 PM EDT) Hemoglobin 14.0 14.0 - 18.0 g/dl [facility] 12/26/2024 1:29 PM EDT 12/26/2024 1:29 PM EDT Generic External Data Provider LAB BLOOD ORDERAB LES Final Result [facility] [address] [place] [phone] * (ABNORMAL) Hematocrit (12/26/2024 1:29 PM EDT) Pathologist [facility] Hematocrit 40.2(L) 42.0 - 52.0 % [facility] 12/26/2024 1:29 PM EDT 12/26/2024 1:29 PM EDT us Generic External Data Provider LAB BLOOD ORDERAB LES Final Result [facility] [address] [place] [address] [phone] * (ABNORMAL) Testosterone, Free (Dialysis) And Total, MS (12/26/2024 1:29 PM EDT) Testosterone, Total 100(A) 250 - 1100 ng/dL [facility] Comment:Men with clinically significant hypogonadal symptoms and testosterone valuesrepeatedly in the range of the 200-300 ng/dL or less, may benefit fromtestosterone treatment after adequate risk and benefits counseling.For additional information, please refer totps://education.[employer]/faq/WLC634(This link is being provided for informational/educational purposes only.)(Note)This test was developed and its analytical performancecharacteristics have been determined by [employer]. It hasnot been cleared or approved by the FDA. This assay hasbeen validated pursuant to the CLIA regulations and isused for clinical purposes. Testosterone, Free 20.4(A) 35.0 - 155.0 pg/mL [facility] Comment:(Note)This test was developed and its analytical performancecharacteristics have been determined by [employer]. It hasnot been cleared or approved by the FDA. This assay hasbeen validated pursuant to the CLIA regulations and isused for clinical purposes.MDFmed [id number] [address],[address] [place] [address] [phone] James L. Frame, MD, PhDTHIS TEST WAS PERFORMED AT:[id number] [place] [phone] RAY MD,PHD 12/26/2024 1:29 PM EDT 12/26/2024 1:29 PM EDT us Generic External Data Provider LAB BLOOD ORDERAB LES Final Result Performing Organization Address [facility] de Phone Number [facility] [address] [place] [address] [phone] * (ABNORMAL) Hepatic Function Panel (12/26/2024 1:29 PM EDT) Bilirubin, Total 0.6 0.0 - 1.0 mg/dL [facility] Bilirubin, Direct 0.1 0.0 - 0.5 mg/dL [facility] Aspartate Amino Transferase 41(H) 5 - 37 U/L [facility] Alanine Aminotransferase 97(H) 0 - 40 U/L [facility] Total Protein 7.0 6.5 - 8.0 g/dL [facility] Albumin Level 4.1 3.5 - 5.0 g/dL [facility] Alkaline Phosphatase 64 39 - 117 U/L [facility] Blood Venous blood specimen / Unknown 12/26/2024 1:29 PM EDT 12/26/2024 1:29 PM EDT Rik Bates MD LAB BLOOD ORDERABLES Final Result Performing Organization Address [facility] de Phone Number [facility] [address] [place] [address] [phone] * XR KUB and Upright 2 Views (12/13/2024 3:31 PM EDT) Anatomical Region Laterality Modality Radiographic Peggy ging 12/13/2024 3:31 PM EDT Narrative 12/13/2024 3:53 PM EDT ?[facility] ?[address] ?[place] [address] ?XRay Report ? Signed ? Patient: Carranza Flores,Cody ?MR#: [id number] ?? 901 ? : 1980 ?Acct:[id number] ? Age/Sex: 44 / M ?ADM Date: 12/13/24 ? Loc: HO.HHCX ? Attending Dr: Briana Young ? Ordering Physician: Briana Young ?? Date of Service: 12/13/24 ?? Procedure(s): XR KUB ?? Accession Number(s): [id number] ? cc: Briana Young ? EXAMINATION: ??XR [...] ??Shyam Lopez MD ??12/13/2024 03:50 PM EDT ? Dictated By: ?Syham Lopez MD ? Signed By: ?<Electronically signed by Shyam Lpoez MD in OV> ?12/13/24 1550 ? DD/ 1531 ? TD/TT: 12/13/24 1540 ? Rehabilitation Services Aide: ? Procedure Note Rodrigue Blood - 12/13/[address] [address] XRay Report Signed Patient: Cody ShepardMR#: [id number] : 1980Acct:[id number] Age/Sex: 44 / MADM Date: 12/13/24 Loc: HO.HHCX Attending Dr: Briana Young Ordering Physician: Briana Young Date of Service: 12/13/24 Procedure(s): XR KUB Accession Number(s): [id number] cc: Briana Young EXAMINATION: XR ABDOMEN 1 [...] 12/13/24 1550 DD/ 1531 TD/TT: 12/13/24 1540 Rehabilitation Services Aide: us Briana Appram GALLERY OR MUSEUM CURATOR IMG XR PROCEDURES Final Result * XR Chest 2 Views (10/26/2024 4:15 AM EST) Anatomical Region Laterality Modality Chest Radiographic Peggy ging 10/26/2024 4:15 AM EST Narrative 10/26/2024 4:16 AM EST ? [facility] ?[address] ?[place] [address] ?XRay Report ? Signed ? Patient: Carranza Flores,Cody ?MR#: [id number] ?? 901 ? : 1980 ?Acct:[id number] ? Age/Sex: 44 / M ?ADM Date: 10/26/24 ? Loc: HO.ED ? Attending Dr: ? Ordering Physician: Generic ED Physician ?? Date of Service: 10/26/24 ?? Procedure(s): XR chest 2V ?? Accession Number(s): [id number] ? cc: iRk Flaherty MD; Generic ED Physician ? CLINICAL [...] DD/ 0415 ? TD/TT: 10/26/24 0415 ? Rehabilitation Services Aide: ? Procedure Note Donotuseinterpreter, Image - 10/26/[address] [address] XRay Report Signed Patient: Cody ShepardMR#: [id number] : 1980Acct:[id number] Age/Sex: 44 / MADM Date: 10/26/24 Loc: HO.ED Attending Dr: Ordering Physician: Generic ED Physician Date of Service: 10/26/24 Procedure(s): XR chest 2V Accession Number(s): [id number] cc: Rik Flaherty MD; Generic ED Physician [...] in OV> 10/26/24415 DD/ 4 TD/TT: 10/26/24414 Rehabilitation Services Aide: [facility] External Provider IMG XR PROCEDURES Edited Result - Final * High Sensitivity Troponin I (10/26/2024 3:53 AM EST) TROPONIN I HIGH SENSITIVITY 4.9 <3.5 - 35.0 ng/L [facility] Comment:The Gillespie high sens itivity Troponin-I results should beused in conjunction with other diagnostic information suchas ECG, clinical observations and information, and patientsymptoms to aid in the diagnosis of IA. 10/26/2024 3:53 AM EST 10/26/2024 3:58 AM EST Generic External Data Provider LAB BLOOD ORDERAB LES Final Result [facility] [address] [place] [phone] * SARS-CoV-2 RNA, Influenza A/B, and RSV RNA, Ql NAAT (10/26/2024 3:53 AM EST) [facility] Influenza A PCR NEGATIVE Negative [facility] Influenza B PCR NEGATIVE Negative [facility] Resp Syncy Virus RNA Qual PCR NEGATIVE Negative [facility] SARS COV2 PCR NEGATIVE Negative [facility] Comment:All test results mus t [...] use by authorized laboratories.Testing performed on the [employer] GeneXpert utilizingreal-time RT-PCR.All SARS CoV2 and positive influenza A/B results arereported to [facility]. 10/26/2024 3:53 AM EST 10/26/2024 3:58 AM EST Generic External Data Provider LAB MICROBIOLOGY - GENERAL ORDERABLES Final Result [facility] [address] [place] [address] [phone] * (ABNORMAL) CBC auto differential (10/26/2024 3:53 AM EST) [facility] White Blood Count 5.4 4.8 - 10.8 X10*3/uL [facility] Red Blood Count 4.78 4.60 - 5.80 X10*6/uL [facility] Hemoglobin 14.2 14.0 - 18.0 g/dl [facility] Hematocrit 40.6(L) 42.0 - 52.0 % [facility] Mean Corpuscular Volume 84.9 80.0 - 98.0 fL [facility] Mean Corpuscular Hemoglobin 29.7 27.0 - 33.0 pg [facility] Mean Corpuscular HGB Conc 35.0 31.0 - 36.0 g/dl [facility] Red Cell Distribution Width 11.9 11.0 - 16.0 % [facility] Platelet Count 158(L) 160 - 400 X10*3/uL [facility] Mean Platelet Volume 9.0(L) 9.4 - 12.4 fL [facility] Neutrophils Percent Auto 48.5 45 - 73 % [facility] Imm Gran Pct Auto 0.2 0.0 - 0.4 % [facility] Lymphocytes Percent Auto 34.7 20 - 40 % [facility] Monocytes Percent Auto 12.0(H) 2 - 11 % [facility] Eosinophils Percent Auto 3.7 0 - 4 % [facility] Basophils Percent Auto 0.9 0 - 2 % [facility] NRBC Pct Auto 0.0 0.0 - 0.2 /100WBC [facility] Neutrophils Absolute Auto 2.6 2.0 - 8.3 x10*3/uL [facility] Imm Gran Abs Auto 0.01 0.00 - 0.03 X10*3/uL [facility] Lymphocytes Absolute Auto 1.9 1.2 - 4.9 X10*3/uL [facility] Monocytes Absolute Auto 0.7 0.1 - 1.2 X10*3/uL [facility] Eosinophils Absolute Auto 0.2 0.0 - 0.4 X10*3/uL [facility] Basophils Absolute Auto 0.1 0.0 - 0.2 X10*3/uL [facility] NRBC Abs Auto 0.000 0.0 - 0.012 X10*3/uL [facility] 10/26/2024 3:53 AM EST 10/26/2024 3:58 AM EST us Generic External Data Provider LAB BLOOD ORDERAB LES Final Result [facility] [address] [place] [address] [phone] * (ABNORMAL) Comprehensive Metabolic Panel (10/26/2024 3:53 AM EST) Sodium 142 135 - 145 mmol/L [facility] Potassium 4.1 3.3 - 5.1 mmol/L [facility] Chloride 108 96 - 108 mmol/L [facility] Carbon Dioxide 27 22 - 29 mmol/L [facility] Anion Gap 11(L) 12 - 20 [facility] Urea Nitrogen (BUN) 11 9 - 16 mg/dL [facility] Creatinine, Serum 0.85 0.5 - 1.4 mg/dL [facility] Creatinine Clr Calc Pharmacy 108.9 [facility] Comment:eGFR (calculated fro m the MDRD study equation) and eCrCl(calculated from the Cockcroft-Gault equation) are based ondifferent parameters and may not yield comparable results.If eCrCl result is absurd, please check patient'sheight/weight. Estimated Glomerular Filt Rate >60 [facility] Comment:Chronic Kidney Disea se: Estimated GFR < 60 mL/min/1.44l8Ksblxd Kidney Disease: Estimated GFR < 15 mL/min/1.73m2 Glucose 114 60 - 115 mg/dL [facility] Calcium 9.1 8.4 - 10.2 mg/dL [facility] Bilirubin, Total 0.7 0.0 - 1.0 mg/dL [facility] Aspartate Amino Transferase 42(H) 5 - 37 U/L [facility] Alanine Aminotransferase 82(H) 0 - 40 U/L [facility] Total Protein 7.3 6.5 - 8.0 g/dL [facility] Albumin Level 3.8 3.5 - 5.0 g/dL [facility] Alkaline Phosphatase 63 39 - 117 U/L [facility] 10/26/2024 3:53 AM EST 10/26/2024 3:58 AM EST us Generic External Data Provider LAB BLOOD ORDERAB LES Final Result [facility] [address] [place] [address] [phone] * Hepatitis A,B,C Profile (03/08/2024 2:12 PM EDT) Hepatitis A IgM NON-REAC TIVE Nonreactive [facility] Comment:For additional infor mation, please refer tohttp://Contapps/faq/BVC728(This link is being provided for informational/educational purposes only.)THIS TEST PERFORMED AT:[facility] [address] [phone] DIRECTOR: VIDYA ADAMS MD ~Hepatitis B Surface Antibody NON-REAC TIVE Nonreactive [facility] Comment:THIS TEST PERFORMED AT:[facility] [address] [phone] DIRECTOR: VIDYA ADAMS MD Hepatitis B Core Antibody NON-REAC TIVE Nonreactive [facility] Comment:For additional infor mation, please refer tohttp://Contapps/faq/CQK112(This link is being provided for informational/educational purposes only.)THIS TEST PERFORMED AT:[facility] [employer] [address] [phone] DIRECTOR: VIDYA ADAMS MD Hepatitis C Antibody NON-REAC TIVE Nonreactive [facility] Comment:HCV antibody was non -reactive. There is no laboratoryevidence of HCV infection.In most cases, no further action is required. However,if recent HCV exposure is suspected, a test for HCV RNA(test code 71897) is suggested.For additional information, please refer tohttp://Contapps/faq/WYB771(This link is being provided for informational/educational purposes only.)THIS TEST PERFORMED AT:[facility] [place] [phone] DIRECTOR: VIDYA ADAMS MD Hepatitis B Surface Ag NON-REAC TIVE Negative [facility] Comment:REFERENCE RANGE: NON -REACTIVEFor additional information, please refer tohttp://education.[employer]/faq/ODS641(This link is being provided for informational/educational purposes only.)THIS TEST PERFORMED AT:[employer] [address] [phone] DIRECTOR: VIDYA ADAMS MD Blood Venous blood specimen / Unknown 03/08/2024 2:12 PM EDT 03/08/2024 3:59 PM EDT Rik Bates MD LAB BLOOD ORDERABLES Final Result [facility] [address] [place], [place] [phone] * (ABNORMAL) Lipid Panel, Standard (03/08/2024 2:12 PM EDT) Triglycerides 240(H) <150 mg/dL [facility] Comment:Desirable Triglyceri de: less than 150 mg/dLBorderline High Triglyceride 150-199 mg/dLHigh Triglyceride: 200-499 mg/dLVery High Triglyceride: greater than or equal to 5OO mg/dL Cholesterol 261(H) <200 mg/dL [facility] Comment:Desirable Cholestero l: less than 200 mg/dLBorderline High Cholesterol: 200-239 mg/dLHigh Cholesterol: greater than 239 mg/dL LDL Cholesterol Calculated 178(H) <100 mg/dL [facility] Comment:Desirable LDL: less than 100 mg/dLNear Optimal/Above Optimal LDL: 110- 129 mg/dLBorderline High LDL: 130-159 mg/dLHigh LDL: 160-189 mg/dLVery High LDL: greater than or equal to 190 mg/dL HDL Cholesterol 35(L) >40 mg/dL [facility] Comment:Desirable HDL: great er than 40 mg/dL Note: This HDL assay may give artificially low results in patients with liver disease. Blood Venous blood specimen / Unknown 03/08/2024 2:12 PM EDT 03/08/2024 3:59 PM EDT us Rik Bates MD LAB BLOOD ORDERABLES Final Result Performing Organization Address [facility]/State/ZIP Co de Phone Number [facility] [address] [place] [phone] * HIV 1/2 ANTIGEN/ANTIBODY,FOURTH GENERATION W/RFL (03/27/2022 10:14 AM EDT) [facility] HIV-1/2 ANTIGEN AND ANTIBODIES, 4TH GENERATION W/ REFLEX NON-REACT [facility] NON-REACT [facility] Comment: HIV-1 antigen and HIV-1/HIV-2 [...] ? For additional information please refer to http://education.Gibberin.[employer]itness/faq/BNU264 (This link is being provided for informational/ educational purposes only.) ? The performance of this assay has not been clinically validated in patients less than 2 years old. ?? 03/27/2022 10:1 4 AM EDT us Merritt Germain MD LAB BLOOD ORDERABLES Final Res ult [facility] [address] from Last 3 Months or Most Recently Relevant to Health Maintenance Insurance [employer] ONE CARE < 65 [place] JOSHI [id number] Care Teams Mixing Machine Tender Relationship Specialty Start Date End Date Rik Bearden MD [address] [place] [address] PCP - General Internal Medicine 06/18/15
--- OUTSIDE RECORDS SUMMARY | 2025-01-15 17:24 | XMS_ITS | Encounter Summary ---
Author Organization [employer] Address [address] [place] [address] Care Team Providers Care Hebrew Cantor Name Role Phone Rik Bearden MD Primary Care Provide r Reason for Visit * Reason Onset Date Comments Nurse Triage 08/16/2023 Encounter Details Date Type Department Care Team ([facility] st Contact Info) Description 08/16/2023 Telephone [facility] [address] [place] [address] Rik Bearden MD [address] [place], [place] [phone] Nurse Triage Social History Tobacco Use Types [...] call Pt reports was just in ED [facility] 08/14/23. Pt reported dx of constipation. Pt has had BM since then but, Pt reports pain in area between anus and testicles, burning pain . Pain comes and goes but, is getting stronger each time it comes. Pt reports this pain is increasing in occurrence. Pt denies urinary symptoms but, feels this may be prostrate associated or scrotal. Advised Pt to return[facility] for further evaluation. Pt agreed with [...] become worse * Telephone Encounter - Ar iMller - 08/16/2023 1:10 PM EST Symptom: Groin Pain - Male Outcome: Talk to a nurse or provider within 15 minutes Reason: Severe pain now documented in this encounter Plan of Treatment Upcoming Encounters Date Type Department Care Team (Late st Contact Info) Description 02/23/2025 10:00 AM EDT Office Visit [facility] [address] [place] [address] Merritt Germain MD [address] [place], [place] [phone] documented as of this encounter Visit Diagnoses Not on filedocumented in this encounter Care Teams Hebrew Cantor Relationship Specialty Start Date End Date Rik Bearden MD [address] [place] [address] PCP - General Internal Medicine 06/18/15 documented as of this encounter
--- OUTSIDE RECORDS SUMMARY | 2025-01-15 17:24 | XMS_ITS | Encounter Summary ---
Author Organization [employer] Address [address] 7[address] [place] [address] Care Team Providers Care Senior Patrol Agent Name Role Phone Rik Bearden MD Primary Care Provide r Reason for Visit * Reason Comments Med Refill Encounter Details Date Type Department Care Team ([facility] st Contact Info) Description 01/13/2025 Refill [facility] MEDICINE [address] [place] [address] Rik Bearden MD [address] [place] [address] Social History Tobacco Use Types Packs/Day Years [...] Description 02/23/2025 10:00 AM EDT Office Visit [facility]INE [address] [place] [address] Merritt Germain MD [address] [place] [address] documented as of this encounter Goals Goal [...] documented as of this encounter Care Teams Senior Patrol Agent Relationship Specialty Start Date End Date Rik Bearden MD [address] [place] [address] PCP - General Internal Medicine 06/18/15 documented as of this encounter
--- OUTSIDE RECORDS SUMMARY | 2025-01-15 17:24 | XMS_ITS | Encounter Summary ---
Author Organization [employer] Address [address] [place] [address] Care Team Providers Care Flexible Shaft Winder Name Role Phone Rik Bearden MD Primary Care Provide r Reason for Visit * Reason Comments Med Change Request Encounter Details Date Type Department Care Team ([facility] Contact Info) Description 11/30/2024 Refill [facility]INE [address] [place] [address] Rik Bearden MD [address] [place] [address] Social History Tobacco Use Types Packs/Day Years [...] Office Visit [facility]INE [address] [place] [address] Merritt Germain MD [address] [place] [address] documented as of this encounter Visit Diagnoses Not on filedocumented in this encounter Additional Health Concerns Assessment Noted Time PHQ-9 Depression Total Score: 14 024 1:11 PM EST documented as of this encounter Care Teams Flexible Shaft Winder Relationship Specialty Start Date End Date Rik Bearden MD [address] [place] [address] PCP - General Internal Medicine 06/18/15 documented as of this encounter
--- OUTSIDE RECORDS SUMMARY | 2025-01-15 17:24 | XMS_ITS | Encounter Summary ---
Author Organization [employer] Address [address] [place] [address] Care Team Providers Care Frame Tender Name Role Phone Rik Bearden MD Primary Care Provide r Reason for Visit * Reason Comments Med Change Request Encounter Details Date Type Department [facility] Description 10/01/2024 Refill [facility] MEDICINE [address] [place] [address] Rik Bearden MD [address] [place] [address] Social History Tobacco Use Types Packs/Day Years [...] Description 02/23/2025 10:00 AM EDT Office Visit [facility] MEDICINE [address] [place] [address] Merritt Germain MD [address] [place] [address] documented as of this encounter Visit Diagnoses Not on filedocumented in this encounter Additional Health Concerns Assessment Noted Time PHQ-9 Depression Total Score: 14 024 1:11 PM EST documented as of this encounter Care Teams Frame Tender Relationship Specialty Start Date End Date Rik Bearden MD [address] [place] [address] PCP - General Internal Medicine 06/18/15 documented as of this encounter
--- OUTSIDE RECORDS SUMMARY | 2025-01-15 17:24 | XMS_ITS | Encounter Summary ---
Author Organization [employer] Address [address] [place] [address] Care Team Providers Care Review Coordinator Name Role Phone Rik Bearden MD Primary Care Provide r Reason for Visit * Reason Comments Med Refill Encounter Details Date Type Department Care Team ([facility] st Contact Info) Description 06/14/2024 Refill [facility] MEDICINE [address] [place] [address] Merritt Germain MD [address] [place] [address] Uncomplicated opioid dependence (CMS/HCC) Social History Tobacco [...] Description 02/23/2025 10:00 AM EDT Office Visit [facility] MEDICINE [address] [place] [address] Merritt Germain MD [address] [place] [address] documented as of this encounter Visit Diagnoses Diagnosis Uncomplicated opioid dependence (CMS/HCC) documented in this encounter Additional Health Concerns Assessment Noted Time PHQ-9 Depression Total Score: 21 024 2:22 PM EDT documented as of this encounter Care Teams Review Coordinator Relationship Specialty Start Date End Date Rik Bearden MD [address] [place] [address] PCP - General Internal Medicine 06/18/15 documented as of this encounter
--- OUTSIDE RECORDS SUMMARY | 2025-01-15 17:24 | XMS_ITS | Encounter Summary ---
Author Organization [employer] Address [address] [facility] [address] [facility] [address] [facility] [address] 7[address] [place] [address] Care Team Providers Care Plowing Gardens Name Role Phone Rik Bearden MD Primary Care Provide r Reason for Visit * Reason Comments Med Refill Encounter Details Date Type Department Care Team ([facility] st Contact Info) Description 04/30/2024 Refill [facility] MEDICINE [address] [place] [address] Rik Bearden MD [address] [place] [address] Other tobacco product nicotine dependence, uncomplicated Social [...] Description 02/23/2025 10:00 AM EDT Office Visit [facility] MEDICINE [address] [place] [address] Merritt Germain MD [address] [place] [address] documented as of this encounter Visit Diagnoses Diagnosis Other tobacco product nicotine dependence, uncomplicated documented in this encounter Additional Health Concerns Assessment Noted Time PHQ-9 Depression Total Score: 21 024 2:22 PM EDT documented as of this encounter Care Teams [place]ing Gardens Relationship Specialty Start Date End Date Rik Bearden MD [address] [place] [address] PCP - General Internal Medicine 06/18/15 documented as of this encounter
--- OUTSIDE RECORDS SUMMARY | 2025-01-15 17:24 | XMS_ITS | Encounter Summary ---
Author Organization [employer] Address [address] [place] [address] Care Team Providers Care Preschool Assistant Name Role Phone Rik Bearden MD Primary Care Provide r Reason for Visit * Reason Comments Med Change Request Encounter Details Date Type Department Care Team ([facility] st Contact Info) Description 08/29/2023 Refill [facility] [address] [place] [address] Sravanthi Summers, ANP [address] [place] [address] Constipation, unspecified constipation type Social History Tobacco [...] Description 02/23/2025 10:00 AM EDT Office Visit [facility] [address] [place] [address] Merritt Germain MD [address] [place] [address] documented as of this encounter Visit Diagnoses Diagnosis Constipation, unspecified constipation type documented in this encounter Care Teams Preschool Assistant Relationship Specialty Start Date End Date Rik Bearden MD [address] [place] [address] PCP - General Internal Medicine 06/18/15 documented as of this encounter
--- OUTSIDE RECORDS SUMMARY | 2025-01-15 17:24 | XMS_ITS | Data Portability ---
Author Organization [employer] [facility], [facility] - [place] [facility] Address [address] [place] [phone] Care Team Providers Care Bindery Assistant Name Role Phone HIM [employer] OTHER Assessment Encounter Date Assessment Date Assessment LastModified by Organization Details LastModified Time 02/02/2024 02/02/2024 I have reviewed and agree with the assessment and plan as documented by the ross lift operator. I provided real-time medical direction for this encounter and was immediately available to provide additional phone-based assistance as needed. 43M presenting with chest discomfort today. Patient was seen in [facility] yesterday for similar symptoms. He had [...] None recorded. Imaging electrocard iogram [email or web address], [address] [place], [address] 14:44:28 Medication Orders None recorded. Patient TargetsNo targets recorded. Patient InstructionsNo instructions recorded. Reason for Referral None Reported. Results Created Date Observation Date Name Description Value Unit Range Abnormal Flag Note LastModifiedBy Organization Detail LastModifiedTime 09/20/19 25 elect dieter carr am No observ ation record ed. [email or web address] [place] [address], [phone] 09/20/2024 14:44:27 Result Notes None recorded. Procedures Surgical History None recorded. Imaging Results Imaging Date Name Status LastModified by Organization Details LastModified Time 09/20/2024 electrocardiogram completed [address], [phone] 09/20/2024 14:44:27 Procedure Notes None recorded. Medical Equipment None Reported. Allergies Allergen ID Allergen Name Allergen Category Reaction Reaction Severity Criticality Documentation Date Start Date Code Code System Note Provider Name and Address Organization Details Recorded Time 18401 acetamino phen / oxycodone medicatio n Not available Not available Not available 09/20/2024 99424 3 RxNorm Not Available [facility] - production [...] SNOMED-CT Code Diagnosis ICD10 Code Diagnosis Note [id number] Lynda Camacho MD Main - [facility] [address] [place] [phone] 02/02/2024 19:54:27 02/03/2024 10:33:21 Heartburn [id number] R12 [id number] Jessica Nobles MD Main - [facility] [address] [place] [phone] 09/20/2024 13:54:48 09/20/2024 18:50:35 Dyspnea [id number] R06.00 Evaluation in the field was performed by my ross lift operator colleague, as noted above, I provided real-time [...] but pt not made dietary changes. On ross lift operator eval VS wnl (temp 99.3F not c/w [...] Recorded Advance Directives Directive None Recorded Payers Insurance Date Sequence Insurance Name Policy Number Policy Reece Covered Member ID Reece Member ID Guarantor Name 09/20/2024 1 [facility] - DOS ON OR AFTER 2022 - DUAL ELIGIBLE - GROUP HOME OPTIONS AND ONE CARE (MEDICARE REPLACEMENT/ADV ANTAGE - HMO) Cody Carranza [id number] Cody Carranza Notes Date Note Type Note [...] pain. Speaking full sentences without labored breathing. Packaging Technician POC Test Results from Tom Wagner - [facility] EKG (1) [20:07] EKG test performed. Attachments uploaded as part of this test result can be found under Documents section. ................... ................... ................... ................... ................... ................... ................... ........ Packaging Technician Note From Tom Wagner: Encountered patient, conscious alert and ambulatory with family present. Patient states that he has been experiencing substernal chest discomfort, which he describes as a mild burning sensation, that begins from the bottom of a sternum and travels down to his umbilical region. Patient states that he was seen at [facility] yesterday where bloodwork was [...] present ectopy ; non-diagnostic for acute STEMI. [facility] contacted: expresses patient symptoms are likely due to his Gerd. Given patients complaints and 12 lead EKG presentation, [facility] is not convinced that patient? s symptoms [...] ................... ........ Disposition: Fulfilled Lynda Camacho MD [address] [place] [address],[address], [place], [address], PSafe 02/02/2024 21:13:45 09/20/2024 text/html [facility] Nurse Triage Notes (Jonah Dennis - RN): Reason For Request: Pt tested negative for [...] at 09/20/2024: Allergies Reviewed at 09/20/2024:45 Comments: Stock Repairer verified the Pt.'s name//address and phone number. Education provided on the response time and the Pt. was advised to monitor reported s/s and seek emergency treatment if needed. Pt reports feeling unwell with a cold and congestion - Negative flu and covid - SOB - Speaking full sentences - Weakness and Tachycardia/dizzine ss - Chest tightness -Pain is 11/13 - Seen in the ER yesterday/last night - LWBS - Declines ER treatment - I feel like the air is not going in. Denies taking over the counter medication. Packaging Technician Organization Information for Herminia Garcia Angella Joy Legal Name: [employer]? Address: [address] [place] [address], Chip Separator: Wilder Branham MD CLIA No.: [id number] Packaging Technician POC Test Results from Herminia Garcia EKG (14:26:42) EKG test performed. Attachments uploaded as part of this test result can be found under Documents section. ................... ................... ................... ................... ................... ................... ................... ........ Packaging Technician Note From Herminia Garcia: Sent to a [...] warm, dry; 12 lead ECG: uploaded to [employer]. Pt is reassured of stable condition. Pt advised to follow up with PCP and continue working to find a therapist. Red flags discussed. Pt has no further questions. ................... ................... ................... ................... ................... ................... ................... ........ [facility] Consulted: Jessica Nobles ................... ................... ................... ................... ................... ................... ................... ........ Disposition: Fulfilled Jessica Nobles MD [address] [facility],[address], [place], [address], HARLAN - INNA FREEMAN 09/20/2024 15:41:18
--- OUTSIDE RECORDS SUMMARY | 2025-01-15 17:24 | XMS_ITS | Encounter Summary ---
Author Organization [employer] Address [address] [place] [address] Care Team Providers Care Torch Operator Name Role Phone Rik Bearden MD Primary Care Provide r Reason for Visit * Reason Onset Date Comments Med Refill 11/01/2023 Encounter Details Date Type Department Care Team ([facility] st Contact Info) Description 11/01/2023 Telephone [facility] MEDICINE [address] [place] [address] Rik Bearden MD [address] [place], [place] [phone] Med Refill Social History Tobacco Use Types [...] MG SL film To be sent to: [facility]/pharmacy #[id number] [place] [address] - [address] [place] [address] documented in this encounter Plan of Treatment Upcoming Encounters Date Type Department Care Team (Late st Contact Info) Description 02/23/2025 10:00 AM EDT Office Visit [facility] MEDICINE [address] [place] [address] Merritt Germain MD [address] [place] [address] documented as of this encounter Visit Diagnoses Not on filedocumented in this encounter Care Teams Torch Operator Relationship Specialty Start Date End Date Rik Bearden MD [address] [place] [address] PCP - General Internal Medicine 06/18/15 documented as of this encounter
[2025-01-15 17:58] LABS: Appearance Urine Clear; Color Urine Yellow; Glucose Urine UA Negative (Negative); Leukocyte Esterase Urine Negative (Negative); Nitrite Urine Negative (Negative); PH 5.5 (5.0-9.0); Urine Blood Negative (Negative); Urine Ketones Negative (Negative); Urine Protein Negative (Neg-Trace)
[2025-01-15 18:01] VITALS: BP 128/88; PULSE 69; RESP 18; TEMP 36.9; O2SAT 97
[2025-01-15 18:01] LABS: Bacteria Urine None Seen (None Seen); Hyaline Casts Urine 0-2 /LPF (0-2); RBC Urine 0-2 /HPF (0-2); Squamous Epithelial Cell Urine 0-2 /HPF (0-2); WBC Urine 0-5 /HPF (0-5)
[2025-01-16 12:25] LABS: CT PCR NOT DETECTED (Not Detect.); NG PCR NOT DETECTED (Not Detect.)
== END 2025-01-15 18:09 | disposition home or self-care (01) ==
PROVIDERS: Physician Assistant; Emergency Provider Student in an Organized Health Care Education/Training Program; PCP Internal Medicine
DX: N48.89 Other specified disorders of penis (principal); R30.0 Dysuria
CPT/HCPCS: 81001; 87491; 87591; 99282; 99283

== ENCOUNTER 2025-01-18 15:45 | Emergency (ER) | payer OTHER, SELFPAY ==
--- NOTE | ~2025-01-18 | US_ITS ---
CLINICAL HISTORY: pain US Scrotum with Doppler Comparison: None Findings: Right testicle normal echotexture and measures 4 cm x 2.1 cm x 2.4 cm. Left testicle normal echotexture and measures 3.9 cm x 2 cm x 2.4 cm. Normal color flow and arterial/venous spectral tracing of both testicles. Epididymides are unremarkable. No varicoceles. No hydroceles. IMPRESSION: Normal scrotal ultrasound. No evidence of torsion. This document has been electronically signed by: Margarita Deluca MD on 01/18/2025 18:29:49
[2025-01-18 15:48] VITALS: BP 126/79; PULSE 69; RESP 18; TEMP 36.8; O2SAT 97; BMI 28.5
--- NOTE | 2025-01-18 15:51 | ED.GENADULT ---
HPI - General Adult General Chief complaint: General Medical Stated complaint: scrotal pain Time Seen by Provider: 01/18/25 18:38 Source: patient, RN notes reviewed and old records reviewed Mode of arrival: ambulatory Limitations: no limitations History of Present Illness ED Provider: Leia HPI narrative: 44 year old male with past medical history significant for chronic constipation, positive VICKIE, GERD, anxiety presents for evaluation of pain in his groin. He states it feels like the pain is below his scrotum in between there in his rectum. His pain started 2 weeks ago. He was seen here a few days ago and had negative urinalysis, negative STI testing He denies any burning when he urinates. Denies any blood in the urine He reports he has been all grimace with 1 partner, his Denies any rectal bleeding Related Data Home Medications ?Medication ?Instructions ?Recorded ?Confirmed bupropion HCl 150 mg 24 hr tablet, 150 mg PO QAM 06/04/20 01/08/25 extended release mirtazapine 15 mg tablet 15 mg PO BEDTIME 03/10/23 01/08/25 duloxetine 60 mg capsule,delayed 60 mg PO DAILY 12/09/23 01/08/25 release hydroxyzine HCl 25 mg tablet 25 mg PO BID 05/30/24 01/08/25 sertraline 25 mg tablet 25 mg PO DAILY 05/30/24 01/08/25 buprenorphine 4 mg-naloxone 1 mg 1 film sublingual DAILY 01/01/25 01/08/25 sublingual film Previous Rx's ?Medication ?Instructions ?Recorded acetaminophen 500 mg tablet 500 mg PO Q6H PRN fever or pain 03/08/23 (Tylenol Extra Strength) #14 tabs calcium polycarbophil 625 mg 1,250 mg (2 x 625 mg) PO DAILY 30 07/14/23 tablet (Fiber Laxative (calcium days #60 tabs polycarbophil)) lactulose 20 gram/30 mL oral 20 g (30 mL) PO DAILY PRN 08/14/23 solution constipation #1,200 mL gabapentin 100 mg capsule 200 mg (2 x 100 mg) PO BEDTIME 30 01/10/24 days #60 caps mesalamine 0.375 gram 1.5 g (4 x 0.375 gram) PO DAILY 04/17/24 capsule,extended release 24 hr #360 caps testosterone 4 pump topical DAILY 30 days #150 06/27/24 grams docusate sodium 100 mg capsule 100 mg PO BID #90 caps 07/07/24 (Colace) fluticasone fur. 200 mcg-umeclid 1 inh inhalation DAILY 30 days #60 10/13/24 62.5 mcg-vilant 25 mcg ea inhalat.powder (Trelegy Ellipta) sucralfate 1 gram tablet 1 g PO BEDTIME #90 tabs 11/06/24 polyethylene glycol 3350 17 17 g PO DAILY constipation #119 12/10/24 gram/dose oral powder (Miralax) grams esomeprazole magnesium 40 mg 40 mg PO DAILY #90 caps 01/01/25 capsule,delayed release levofloxacin 750 mg tablet 750 mg PO DAILY #14 tabs 01/18/25 Allergies Allergy/AdvReac Type Severity Reaction Status Date / Time shellfish derived Allergy Intermediate Rash Verified 01/18/25 15:50 Review of Systems Constitutional: Constitutional: Denies body ache(s), Denies chills, Denies fever(s) and Denies weakness Eyes: Eyes: Denies floaters ENT: Denies vertigo and Denies dizziness Cardiovascular: Cardiovascular: Denies chest pain and Denies dyspnea Respiratory: Respiratory: Denies cough and Denies dyspnea Gastrointestinal: Gastrointestinal: Denies abdominal pain Genitourinary: Genitourinary: Reports genital pain, Denies scrotal swelling and Denies testicular mass Musculoskeletal: Musculoskeletal: Denies back pain Integumentary/Breasts: Skin/Breast: Denies rash Neurologic: Denies vertigo, Denies dizziness and Denies weakness Psychiatric: Psychiatric: Denies anxiety [facility] Past Medical History Medical History Hypogonadism, testicular Hilar lymphadenopathy Fibromyalgia GERD (gastroesophageal reflux disease) Scrotal pain Rhinosinusitis 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 Mother No problems noted. Paternal Aunt Lung cancer Social History Social History Alcohol intake: never Patient Tobacco Use Status: Former Tobacco user Tobacco use type: Cigarette Years Smoked: 23 Years e-Cigarette/Vaping Use: Currently Using Advance Directives: No Advance Directives Information Provided: No Current occupational status: disabled Physical Exam ED Vital Signs: Vital Signs - 24 hr 01/18/25 15:48 01/18/25 18:52 Temperature 98.3 F 98.3 F Pulse Rate 69 69 Respiratory Rate 18 18 Blood Pressure 126/79 126/79 Pulse Oximetry 97 97 Oxygen Delivery Method Room Air Room Air BMI result Body Mass Index 28.5 Const General: healthy appearing, comfortable, no acute distress, alert and awake Nutritional Appearance: well nourished Orientation/consciousness: patient oriented x3 HENMT Head: Yes normocephalic and Yes atraumatic Throat: Yes posterior oropharynx normal Eyes Eyelids: Yes eyelids normal Conjunctivae: conjunctivae normal Sclerae: sclerae normal Corneas: corneas normal Pupils: Equal, round and reactive pupils present EOM: EOMs intact bilaterally Neck Neck: Yes full ROM Resp Effort & Inspection: normal respiratory effort, able to speak in complete sentences and not labored Scrotum: scrotum normal Skin General skin exam: no rashes or lesions noted and elasticity normal Neuro General: patient oriented x3 Cranial nerves: Yes Equal, round and reactive pupils present and Yes Bilaterally intact EOM present Cognition (Neuro): normal cognition Extrem Other: Moving all extremities well without any obvious deformities Course Course Course Narrative: RME, this is a rapid medical exam performed by Rubén Dupree please refer to primary provider for complete H&P- 44-year-old male presents for evaluation of pain in his groin/perineum. He was here a few days ago and had a negative urinalysis. He reports his symptoms feel ?deeper. Plan for scrotal and testicular ultrasound as well as labs. Medical Decision Making Medical Decision Making MDM Narrative: 44-year-old male presents for evaluation of pain in his perineum. He denies urination, he was seen here 3 days ago, he had a negative urinalysis, negative as it does runny your imaging. He does reports the pain within reports that it tends to be lower. A testicular ultrasound I ordered that rules out epididymitis, orchitis. I reviewed his recent UA and CT NG testing which was negative. We will treat the patient clinically for prostatitis given the location of his pain/discomfort. Given that he is over the age of 40, reports being monogamous and his STI testing was negative we will treat with Levaquin Differential Diagnosis Differential Diagnoses: The differential diagnosis associated with the presentation includes Prostatitis UTI Epididymitis Hydrocele Lab Data 01/18/25 16:14 01/18/25 16:14 Labs: Lab Results 01/18/25 Range/Units 16:14 WBC 5.3 (4.8-10.8) X10*3/uL RBC 4.89 (4.60-5.80) X10*6/uL Hgb 14.1 (14.0-18.0) g/dl Hct 41.1 L (42.0-52.0) % MCV 84.0 (80.0-98.0) fL MCH 28.8 (27.0-33.0) pg MCHC 34.3 (31.0-36.0) g/dl RDW 12.4 (11.0-16.0) % Plt Count 208 (160-400) X10*3/uL MPV 9.4 (9.4-12.4) fL Immature Gran % (Auto) 0.2 (0.0-0.4) % Neut % (Auto) 47.4 (45-73) % Lymph % (Auto) 41.6 H (20-40) % Imperial % (Auto) 7.1 (2-11) % Eos % (Auto) 2.6 (0-4) % Baso % (Auto) 1.1 (0-2) % Lymph # (Auto) 2.2 (1.2-4.9) X10*3/uL Imperial # (Auto) 0.4 (0.1-1.2) X10*3/uL Eos # (Auto) 0.1 (0.0-0.4) X10*3/uL Baso # (Auto) 0.1 (0.0-0.2) X10*3/uL Abs Immat Gran (auto) 0.01 (0.00-0.03) X10*3/uL Absolute Neuts (auto) 2.5 (2.0-8.3) x10*3/uL Absolute Nucleated RBC 0.000 (0.0-0.012) X10*3/uL Nucleated RBC % (auto) 0.0 (0.0-0.2) /100WBC Sodium 147 H (135-145) mmol/L Potassium 4.5 (3.3-5.1) mmol/L Chloride 113 H (96-108) mmol/L Carbon Dioxide 25 (22-29) mmol/L Anion Gap 14 (12-20) BUN 15 (9-16) mg/dL Creatinine 0.93 (0.5-1.4) mg/dL Estim Creat Clear Calc 100.7 Estimated GFR > 60 Random Glucose 99 (60-115) mg/dL Calcium 9.2 (8.4-10.2) mg/dL Total Bilirubin 0.7 (0.0-1.0) mg/dL AST 74 H (5-37) U/L ALT 128 H (0-40) U/L Alkaline Phosphatase 64 (39-117) U/L Total Protein 7.2 (6.5-8.0) g/dL Albumin 4.1 (3.5-5.0) g/dL Lipase 18 (8-78) U/L Discharge Plan Discharge Clinical Impression: Acute prostatitis Patient Disposition: Home, Self-Care Instructions: Prostatitis (ED) Additional Instructions: Your urinalysis was negative, scrotal ultrasound was negative. Take Levaquin once daily for 2 weeks. In his important that you follow-up with urology as planned. Return for new or worsening symptoms While you are taking this antibiotic, you should refrain from excessive physical activity This medication can weaken your tendons and cause tendinitis or tendon rupture Prescriptions: New levofloxacin 750 mg tablet 750 mg PO DAILY Qty: 14 0RF No Action mesalamine 0.375 gram capsule,extended release 24hr 1.5 g PO DAILY Qty: 360 0RF testosterone 20.25 mg/1.25 gram (1.62 %) gel in metered-dose pump 4 pump topical DAILY 30 Days Qty: 150 4RF Rx Instructions: apply 2 pump amount over max area of EACH upper arm and shoulder sucralfate 1 gram tablet 1 g PO BEDTIME Qty: 90 0RF lactulose 20 gram/30 mL solution 20 g PO DAILY PRN (Reason: constipation) Qty: 1200 0RF polyethylene glycol 3350 [Miralax] 17 gram/dose powder 17 g PO DAILY Qty: 119 0RF acetaminophen [Tylenol Extra Strength] 500 mg tablet 500 mg PO Q6H PRN (Reason: fever or pain) Qty: 14 0RF bupropion HCl 150 mg tablet extended release 24 hr 150 mg PO QAM buprenorphine-naloxone 4-1 mg film 1 film sublingual DAILY esomeprazole magnesium 40 mg capsule,delayed release(DR/EC) 40 mg PO DAILY Qty: 90 2RF Trelegy Ellipta 200-62.5-25 mcg blister with device 1 inh inhalation DAILY 30 Days Qty: 60 12RF mirtazapine 15 mg tablet 15 mg PO BEDTIME calcium polycarbophil [Fiber Laxative (ca polycarbo)] 625 mg tablet 1,250 mg PO DAILY 30 Days Qty: 60 3RF duloxetine 60 mg capsule,delayed release(DR/EC) 60 mg PO DAILY gabapentin 100 mg capsule 200 mg PO BEDTIME 30 Days Qty: 60 6RF sertraline 25 mg tablet 25 mg PO DAILY hydroxyzine HCl 25 mg tablet 25 mg PO BID docusate sodium [Colace] 100 mg capsule 100 mg PO BID Qty: 90 2RF Interventions: ED Discharge Assessment Last Done: 01/18/25 18:52 Discharge Date/Time: 01/18/25 18:53 Print Language: Portuguese
[2025-01-18 16:22] LABS: MANUAL DIFF FLAG NO
[2025-01-18 16:23] LABS: Basophils Absolute Auto 0.1 X10*3/uL (0.0-0.2); Basophils Percent Auto 1.1 % (0-2); Eosinophils Absolute Auto 0.1 X10*3/uL (0.0-0.4); Eosinophils Percent Auto 2.6 % (0-4); Hematocrit 41.1 % (42.0-52.0); Hemoglobin 14.1 g/dl (14.0-18.0); Imm Gran Abs Auto 0.01 X10*3/uL (0.00-0.03); Imm Gran Pct Auto 0.2 % (0.0-0.4); Lymphocytes Absolute Auto 2.2 X10*3/uL (1.2-4.9); Lymphocytes Percent Auto 41.6 % (20-40); Mean Corpuscular HGB Conc 34.3 g/dl (31.0-36.0); Mean Corpuscular Hemoglobin 28.8 pg (27.0-33.0); Mean Platelet Volume 9.4 fL (9.4-12.4); Monocytes Absolute Auto 0.4 X10*3/uL (0.1-1.2); Monocytes Percent Auto 7.1 % (2-11); Neutrophils Absolute Auto 2.5 x10*3/uL (2.0-8.3); Neutrophils Percent Auto 47.4 % (45-73); Platelet Count 208 X10*3/uL (160-400); Red Blood Count 4.89 X10*6/uL (4.60-5.80); Red Cell Distribution Width 12.4 % (11.0-16.0); White Blood Count 5.3 X10*3/uL (4.8-10.8)
[2025-01-18 16:48] LABS: Alanine Aminotransferase 128 U/L (0-40); Albumin Level 4.1 g/dL (3.5-5.0); Alkaline Phosphatase 64 U/L (39-117); Anion Gap 14 (12-20); Aspartate Amino Transferase 74 U/L (5-37); Bilirubin Total 0.7 mg/dL (0.0-1.0); Blood Urea Nitrogen 15 mg/dL (9-16); Calcium 9.2 mg/dL (8.4-10.2); Carbon Dioxide 25 mmol/L (22-29); Chloride 113 mmol/L (96-108); Creatinine Clr Calc Pharmacy 100.7; Estimated Glomerular Filt Rate > 60; Glucose Random 99 mg/dL (60-115); Lipase 18 U/L (8-78); Potassium 4.5 mmol/L (3.3-5.1); Sodium 147 mmol/L (135-145); Total Protein 7.2 g/dL (6.5-8.0)
--- OUTSIDE RECORDS SUMMARY | 2025-01-18 18:46 | XMS_ITS | Encounter Summary ---
Author Organization [employer] Address [address] [facility] [address] [address] [place] [address] Care Team Providers Care Auditor Name Role Phone Rik Bearden MD Primary Care Provide r Reason for Visit * Reason Onset Date Comments Med Refill 11/01/2023 Encounter Details Date Type Department Care Team ([facility] st Contact Info) Description 11/01/2023 Telephone [facility] [address] [place] [address] Rik Bearden MD [address] [place], [place] [phone] Med Refill Social History Tobacco Use Types [...] MG SL film To be sent to: [facility]/pharmacy #[id number] [place] [address] - [address] [place] [address] documented in this encounter Plan of Treatment Upcoming Encounters Date Type Department Care Team (Late st Contact Info) Description 02/23/2025 10:00 AM EDT Office Visit [facility]INE [address] [place] [address] Merritt Germain MD [address] [place] [address] documented as of this encounter Visit Diagnoses Not on filedocumented in this encounter Care Teams Auditor Relationship Specialty Start Date End Date Rik Bearden MD [address] [place] [address] PCP - General Internal Medicine 06/18/15 documented as of this encounter
--- OUTSIDE RECORDS SUMMARY | 2025-01-18 18:46 | XMS_ITS | Encounter Summary ---
Author Organization [employer] Address [address] [facility] [facility] [address] [place] [address] Care Team Providers Care Hazardous Waste Management Specialist Name Role Phone Rik Bearden MD Primary Care Provide r Reason for Visit * Reason Comments Med Refill Encounter Details Date Type Department Care Team ([facility] st Contact Info) Description 09/19/2023 Refill [facility] MED[facility]INE [address] [place] [address] Merritt Germain MD [address] [place] [address] Uncomplicated opioid dependence (CMS/HCC) Social History Tobacco [...] Description 02/23/2025 10:00 AM EDT Office Visit [facility] MED[facility]INE [address] [place] [phone] Merritt Germain MD [address] [place] [address] documented as of this encounter Visit Diagnoses Diagnosis Uncomplicated opioid dependence (CMS/HCC) documented in this encounter Care Teams Hazardous Waste Management Specialist Relationship Specialty Start Date End Date Rki Bearden MD [address] [place] [phone] PCP - General Internal Medicine 06/18/15 documented as of this encounter
--- OUTSIDE RECORDS SUMMARY | 2025-01-18 18:46 | XMS_ITS | Encounter Summary ---
Author Organization [employer] Address [address] [facility] [address] [place] [address] Care Team Providers Care Clinical Staff Educator Name Role Phone Rik Bearden MD Primary Care Provide r Reason for Visit * Reason Onset Date Comments Nurse Triage 04/12/2023 Encounter Details Date Type Department Care Team ([facility] st Contact Info) Description 04/12/2023 Telephone [facility] MEDICINE [address] [place] [address] Rik Bearden MD [address] [place], [place] [phone] Nurse Triage Social History Tobacco Use Types [...] accepted this outcome Please contact pt at [phone] (Irish) documented in this encounter Plan of Treatment Upcoming Encounters Date Type Department Care Team (Late st Contact Info) Description 02/23/2025 10:00 AM EDT Office Visit [facility] MED[facility]INE [address] [place] [address] Merritt Germain MD [address] [place] [address] documented as of this encounter Visit Diagnoses Not on filedocumented in this encounter Care Teams Clinical Staff Educator Relationship Specialty Start Date End Date Rik Bearden MD [address] [place] [address] PCP - General Internal Medicine 06/18/15 documented as of this encounter
--- OUTSIDE RECORDS SUMMARY | 2025-01-18 18:46 | XMS_ITS | Clinical Summary ---
Author Organization [facility] [place] [address] Care Team Providers Care Life Claims Examiner Name Role Phone Unavailable Primary Care Provider [...]
--- OUTSIDE RECORDS SUMMARY | 2025-01-18 18:46 | XMS_ITS | Encounter Summary ---
Author Organization [employer] Address [address] [facility] [address] [facility] [address] [place] [address] Care Team Providers Care Marketing Research Analyst Name Role Phone Rik Bearden MD Primary Care Provide r Reason for Visit * Reason Comments Med Refill Encounter Details Date Type Department Care Team ([facility] st Contact Info) Description 04/30/2024 Refill [facility] [address] [place] [address] Rik Bearden MD [address] [place] [address] Other tobacco product nicotine dependence, uncomplicated Social [...] Description 02/23/2025 10:00 AM EDT Office Visit [facility] [address] [place] [phone] Merirtt Germain MD [address] [place] [phone] documented as of this encounter Visit Diagnoses Diagnosis Other tobacco product nicotine dependence, uncomplicated documented in this encounter Additional Health Concerns Assessment Noted Time PHQ-9 Depression Total Score: 21 024 2:22 PM EDT documented as of this encounter Care Teams Marketing Research Analyst Relationship Specialty Start Date End Date Rik Bearden MD [address] [place] [phone] PCP - General Internal Medicine 06/18/15 documented as of this encounter
--- OUTSIDE RECORDS SUMMARY | 2025-01-18 18:46 | XMS_ITS | Encounter Summary ---
Author Organization [employer] Address [address] [facility] [address] [place] [address] Care Team Providers Care Blueprint Trimmer Name Role Phone Rik Bearden MD Primary Care Provide r Reason for Visit * Reason Comments Med Refill Encounter Details Date Type Department Care Team ([facility] st Contact Info) Description 06/14/2024 Refill [facility] MED[facility] [address] [place] [address] Merritt Germain MD [address] [place] [address] Uncomplicated opioid dependence (CMS/HCC) Social History Tobacco [...] Description 02/23/2025 10:00 AM EDT Office Visit [facility] [address] [place] [address] Merritt Germain MD [address] [place] [address] documented as of this encounter Visit Diagnoses Diagnosis Uncomplicated opioid dependence (CMS/HCC) documented in this encounter Additional Health Concerns Assessment Noted Time PHQ-9 Depression Total Score: 21 024 2:22 PM EDT documented as of this encounter Care Teams Blueprint Trimmer Relationship Specialty Start Date End Date Rik Bearden MD [address] [place] [address] PCP - General Internal Medicine 06/18/15 documented as of this encounter
--- OUTSIDE RECORDS SUMMARY | 2025-01-18 18:46 | XMS_ITS | Encounter Summary ---
Author Organization [email or web address] Address [address] [facility] [address] [place] [address] Care Team Providers Care Skimmer Name Role Phone Rik Bearden MD Primary Care Provide r Reason for Visit * Reason Comments Med Refill Encounter Details Date Type Department Care Team ([facility] st Contact Info) Description 03/26/2023 Refill [facility] [address] [place] [address] Rik Bearden MD [address] [place], [place] [phone] Heartburn Social History Tobacco Use Types Packs/Day [...] Description 02/23/2025 10:00 AM EDT Office Visit [facility] MED[facility]INE [address] [place] [address] Merritt Germain MD [address] [place] [address] documented as of this encounter Visit Diagnoses Diagnosis Heartburn documented in this encounter Care Teams Skimmer Relationship Specialty Start Date End Date Rik Bearden MD [address] [place] [address] PCP - General Internal Medicine 06/18/15 documented as of this encounter
--- OUTSIDE RECORDS SUMMARY | 2025-01-18 18:46 | XMS_ITS | Encounter Summary ---
Author Organization [employer] Address [address] [facility] [address] [place] [address] Care Team Providers Care Director Of Health Education Name Role Phone Rik Bearden MD Primary Care Provide r Encounter Details Date Type Department Care Team (Late st Contact Info) Description 01/15/2025 Orders Only GENERIC EXTERNAL DATA DEPARTMENT Provider, [...] Upcoming Encounters Date Type Department Care Team ([facility] st Contact Info) Description 02/23/2025 10:00 AM EDT Office Visit [facility] MED[facility]INE [address] [place] [phone] Merritt Germain MD [address] [place] [address] documented as of this encounter Goals Goal Patient Goal Type Associated Problems Recent Progress Patient-Stated? Author Decrease the frequency of unwanted emotions so that daily functioning is improved General No Nicole Rubio, JAMSHID documented as of this encounter Procedures Procedure Name Priority Date/Time Associated Diagnosis Comments URINALYSIS, COMPLETE, WITH REFLEX TO CULTURE Routine 01/15/2025 5:51 PM EDT CHLAMYDIA/N. GONORRHOEAE RNA, TMA, UROGENITAL Routine 01/15/2025 5:51 PM EDT documented in this encounter Results * Chlamydia/N. Gonorrhoeae RNA, TMA, Urogenitial (01/15/2025 5:51 PM EDT) CT PCR NOT DETECTED Not Detect. [facility] Comment:A not detected test result does not exclude the possibilityof infection because test results can be affected byimproper specimen collection, concurrent antibiotic therapy,or the number of organisms in the specimen which may bebelow the sensitivity of the test. As with many diagnostictests, results from the Xpert CT/NG assay should beinterpreted in conjunction with other laboratory andclinical data available to the clinician.Xpert CT/NG performance has not been evaluated in patientsless than 14 years of age. The assay should not be used forthe evaluationof suspected sexual abuse or for other medico-legalindications. Additional testing is recommended in anycircumstance when false positive or false negative resultscould lead to adverse medical, social or psychologicalconsequences. NG PCR NOT DETECTED Not Detect. [facility] Comment:A not detected test result does not exclude the possibilityof infection because test results can be affected byimproper specimen collection, concurrent antibiotic therapy,or the number of organisms in the specimen which may bebelow the sensitivity of the test. As with many diagnostictests, results from the Xpert CT/NG assay should beinterpreted in conjunction with other laboratory andclinical data available to the clinician.Xpert CT/NG performance has not been evaluated in patientsless than 14 years of age. The assay should not be used forthe evaluationof suspected sexual abuse or for other medico-legalindications. Additional testing is recommended in anycircumstance when false positive or false negative resultscould lead to adverse medical, social or psychologicalconsequences. 01/15/2025 5:51 PM EDT 01/15/2025 5:55 PM EDT Narrative [facility] - 01/16/2025 12:25 PM EDT Urine us Generic External Data Provider LAB MICROBIOLOGY - GENERAL ORDERABLES Final Result [facility] [address] [place] [phone] * Urinalysis, Complete, with Reflex to Culture (01/15/2025 5:51 PM EDT) Color Urine Yellow [facility] Appearance Urine Clear [facility] PH 5.5 5.0 - 9.0 [facility] Glucose Urine UA Negative Negative mg/dL [facility] Urine Blood Negative Negative [facility] Specific [place] - Urine 1.010 1.005 - 1.025 [facility] Urine Protein Negative Neg-Trace mg/dL [facility] Urine Ketones Negative Negative mg/dL [facility] Nitrite Urine Negative Negative [facility] Leukocyte Esterase Urine Negative Negative [facility] RBC Urine 0-2 0 - 2 /HPF [facility] Urine WBC 0-5 0 - 5 /HPF [facility] Urine Squamous Epithelial Cell 0-2 0 - 2 /HPF [facility] Urine Bacteria None Seen None Seen [facility] Hyaline Casts, Urine 0-2 0 - 2 /LPF [facility] 01/15/2025 5:51 PM EDT 01/15/2025 5:55 PM EDT Narrative [facility] - 01/15/2025 6:35 PM EDT [id number], Clean Catch us Generic External Data Provider LAB URINE ORDERAB LES Final Result Performing Organization Address City/State/[facility] Co de Phone Number [facility] [address] [place] [address] [phone] documented in this encounter Visit Diagnoses Not on filedocumented in this encounter Additional Health Concerns Assessment Noted Time PHQ-9 Depression Total Score: 14 025 12:55 PM EDT documented as of this encounter Care Teams Director Of Health Education Relationship Specialty Start Date End Date Rik Bearden MD [address] [place] [phone] PCP - General Internal Medicine 06/18/15 documented as of this encounter
--- OUTSIDE RECORDS SUMMARY | 2025-01-18 18:46 | XMS_ITS | Data Portability ---
Author Organization [facility], [place] [facility] - [facility] Address [address] [place] [phone] Care Team Providers Care Lapel Stitcher Name Role Phone HIM CCA OTHER Assessment Encounter Date Assessment Date Assessment LastModified by Organization Details LastModified Time 02/02/2024 02/02/2024 I have reviewed and agree with the assessment and plan as documented by the plant maintenance engineer. I provided real-time medical direction for this encounter and was immediately available to provide additional phone-based assistance as needed. 43M presenting with chest discomfort today. Patient was seen in [facility] yesterday for similar symptoms. He had [...] None recorded. Imaging electrocard iogram [email or web address], [address] [place], [phone] 14:44:28 Medication Orders None recorded. Patient TargetsNo targets recorded. Patient InstructionsNo instructions recorded. Reason for Referral None Reported. Results Created Date Observation Date Name Description Value Unit Range Abnormal Flag Note LastModifiedBy Organization Detail LastModifiedTime 09/20/19 25 elect dieter carr am No observ ation record ed. [email or web address] [place] [address], [phone] 09/20/2024 14:44:27 Result Notes None recorded. Procedures Surgical History None recorded. Imaging Results Imaging Date Name Status LastModified by Organization Details LastModified Time 09/20/2024 electrocardiogram completed [address], [phone] 09/20/2024 14:44:27 Procedure Notes None recorded. Medical Equipment None Reported. Allergies Allergen ID Allergen Name Allergen Category Reaction Reaction Severity Criticality Documentation Date Start Date Code Code System Note Provider Name and Address Organization Details Recorded Time 65899 acetamino phen / oxycodone medicatio n Not available Not available Not available 09/20/2024 44942 3 RxNorm Not Available [facility] - production [...] SNOMED-CT Code Diagnosis ICD10 Code Diagnosis Note [id number] Lynda Camacho MD [facility] - [facility] [address] [place] [phone] 02/02/2024 19:54:27 02/03/2024 10:33:21 Heartburn [id number] R12 [id number] Jessica Nobles MD [facility] - [facility] [address] [place] [address] 09/20/2024 13:54:48 09/20/2024 18:50:35 Dyspnea [id number] R06.00 Evaluation in the field was performed by my plant maintenance engineer colleague, as noted above, I provided real-time [...] but pt not made dietary changes. On plant maintenance engineer eval VS wnl (temp 99.3F not c/w [...] OR AFTER 2022 - DUAL ELIGIBLE - CARE HOME OPTIONS AND ONE CARE (MEDICARE REPLACEMENT/ADV ANTAGE - HMO) Cody Carranza [phone] Cody Carranza Notes Date Note Type Note [...] pain. Speaking full sentences without labored breathing. Category Specialist POC Test Results from Tom Wagner - [facility] EKG (1) [20:07] EKG test performed. Attachments uploaded as part of this test result can be found under Documents section. ................... ................... ................... ................... ................... ................... ................... ........ Category Specialist Note From Tom Wagner: Encountered patient, conscious alert and ambulatory with family present. Patient states that he has been experiencing substernal chest discomfort, which he describes as a mild burning sensation, that begins from the bottom of a sternum and travels down to his umbilical region. Patient states that he was seen at [facility] yesterday where bloodwork was done [...] noted to be eating a cheeseburger with djiboutian fries upon contact.Skin warm, dry and of appropriate color for ethnicity. Head and neck, free of trauma and edema. -JVD. Breath sounds present, clear and equal bilaterally. Abdomen is soft, non-tender and non-distended. Extremities are free of trauma and edema. 12 Lead EKG performed, sinus bradycardia noted with no present ectopy ; non-diagnostic for acute STEMI. [facility] contacted: expresses patient symptoms are likely due to his Gerd. Given patients complaints and 12 lead EKG presentation, [facility] is not convinced that patient? s symptoms [...] ................... ........ Disposition: Fulfilled Lynda Camacho MD [address] [place] [address],[address], [place], [phone], [email or web address] 02/02/2024 21:13:45 09/20/2024 text/html [facility] Nurse Triage Notes (Jonah Dennis - RN): [...] at 09/20/2024: Allergies Reviewed at 09/20/2024:45 Comments: [employer] In[employer] Heating Equipment verified the Pt.'s name//address and phone number. [...] in. Denies taking over the counter medication. Category Specialist Organization Information for Herminia Garcia [employer] Name: [employer]? Address: [address] [place] [address], Reverse Unit Operator: Wilder Branham MD CLIA No.: [id number] Category Specialist POC Test Results from Herminia Garcia EKG (14:26:42) EKG test performed. Attachments uploaded as part of this test result can be found under Documents section. ................... ................... ................... ................... ................... ................... ................... ........ Category Specialist Note From Herminia Garcia: Sent to a [...] warm, dry; 12 lead ECG: uploaded to [facility]. Pt is reassured of stable condition. Pt advised to follow up with PCP and continue working to find a therapist. Red flags discussed. Pt has no further questions. ................... ................... ................... ................... ................... ................... ................... ........ [facility] Consulted: Jessica Nobles ................... ................... ................... ................... ................... ................... ................... ........ Disposition: Fulfilled Jessica Nobles MD [address] [facility],[address], [place], [address], HARLAN - INNA FREEMAN 09/20/2024 15:41:18
--- OUTSIDE RECORDS SUMMARY | 2025-01-18 18:46 | XMS_ITS | Encounter Summary ---
Author Organization [employer] Address [address] [place] [address] Care Team Providers Care Rn Assessment Name Role Phone Rik Bearden MD Primary Care Provide r Reason for Visit * Reason Comments Med Change Request Encounter Details Date Type Department Care Team ([facility] st Contact Info) Description 08/29/2023 Refill [facility] [address] [place] [address] Sravanthi Summers, ANP [address] [place] [address] Constipation, unspecified constipation type Social History Tobacco [...] 02/23/2025 10:00 AM EDT Office Visit [facility] [address] [place] [id number] Merritt Germain MD [address] [place] [phone] documented as of this encounter Visit Diagnoses Diagnosis Constipation, unspecified constipation type documented in this encounter Care Teams Rn Assessment Relationship Specialty Start Date End Date Rik Bearden MD [address] [place] [phone] PCP - General Internal Medicine 06/18/15 documented as of this encounter
--- OUTSIDE RECORDS SUMMARY | 2025-01-18 18:46 | XMS_ITS | Encounter Summary ---
Author Organization [employer] Address [address] [place] [address] Care Team Providers Care Computer Installer Name Role Phone Rik Bearden MD Primary Care Provide r Reason for Visit * Reason Onset Date Comments Nurse Triage 08/16/2023 Encounter Details Date Type Department Care Team ([facility] st Contact Info) Description 08/16/[address] [facility] [address] [place] [address] Rik Bearden MD [address] [place], [place] [phone] Nurse Triage Social History Tobacco Use Types [...] call Pt reports was just in ED [facility] 08/14/23. Pt reported dx of constipation. Pt has had BM since then but, Pt reports pain in area between anus and testicles, burning pain . Pain comes and goes but, is getting stronger each time it comes. Pt reports this pain is increasing in occurrence. Pt denies urinary symptoms but, feels this may be prostrate associated or scrotal. Advised Pt to returnto [facility] Ed for further evaluation. Pt agreed with [...] Description 02/23/2025 10:00 AM EDT Office Visit [facility] [address] [place] [address] Merritt Germain MD [address] [place], [place] [phone] documented as of this encounter Visit Diagnoses Not on filedocumented in this encounter Care Teams Computer Installer Relationship Specialty Start Date End Date Rik Bearden MD [address] [place] [address] PCP - General Internal Medicine 06/18/15 documented as of this encounter
--- OUTSIDE RECORDS SUMMARY | 2025-01-18 18:46 | XMS_ITS | Clinical Summary ---
Author Organization [employer] Address [address] [place] [address] Care Team Providers Care Sales And Service Change Leader Name Role Phone Rik Bearden MD Primary [...] alcohol use Pt under the care of [facility], last seen 01/01/2025 Liver US 03/2024 showed:Hepatomegaly, 16.5 cm. Increased hepatic parenchymal heterogeneity and echogenicity could be associated with hepatocellular disease/hepatic steatosis and substantially limits visualization. Hypoechoic areas within the right hepatic lobe are characteristic of focal sparing within a fatty liver. 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 Evaluated by mechanical specialist Dr Tristen Miller ( Last note [...] since c/o dyspnea and palpitations. Evaluated by mechanical specialist Dr Tristen Miller ( Last note [...] since c/o dyspnea and palpitations. Evaluated by mechanical specialist Dr Tristen Miller ( Last note [...] since c/o dyspnea and palpitations. Evaluated by mechanical specialist Dr Tristen Miller ( Last note [...] here for a f/u seen at our [facility] with c/o acute on chronic low back pain Had an x-ray of his LOS spine 05/06/2022 that was read as unremarkable previously with c/o persistent low back pain. He was referred to PT with no good results. Initial work up included plain films of his LS spine that were unremarkable. [facility], Previously there was evidence of muscle spasm, he was taking Naproxen with no good results, I added a muscle relaxant t Baclofen 10 mg po q 8 hrs prn. Pt states it did not help either. MRI of his LS spine 11/2018 was Normal. Patient was seen at the [facility] and they reviewed his MRI and recommended steroid injection/Pt for myofascial pain, pt declined back then. Today he is complaining of recurrent low back pain that radiates to both lower extremities Patient was seen at [facility], they recommended PT Assessment & Plan (09/08/2022 9:30 AM EST): Pt here for a f/u seen at our [facility] with c/o acute on chronic low back pain Had an x-ray of his LOS spine 05/06/2022 that was read as unremarkable previously with c/o persistent low back pain. He was referred to PT with no good results. Initial work up included plain films of his LS spine that were unremarkable. [facility], Previously there was evidence of muscle spasm, he was taking Naproxen with no good results, I added a muscle relaxant t Baclofen 10 mg po q 8 hrs prn. Pt states it did not help either. MRI of his LS spine 11/2018 was Normal. Patient was seen at the [facility] and they reviewed his MRI and recommended steroid injection/Pt for myofascial pain, pt declined back then. Today he is complaining of recurrent low back pain that radiates to both lower extremities Plan: Will refer back to [facility] for evaluation Scrotal pain 08/11/2022 Assessment & [...] the care of [facility]. He used to follow with them every [...] organization. 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 Tobacco screening negative. ) 12/26/2024 Orders Only GENERIC EXTERNAL DATA DEPARTMENT Provider, Generic External Data 12/26/2024 Refill [facility] [address] [place] [phone] Nicole Rubio, JAMSHID Uncomplicated opioid dependence (CMS/HCC) 12/13/2024 2:30 PM EDT Office Visit [address] [address] Briana Young NP Neck pain on left side (Primary Dx) 12/13/2024 Travel 12/12/2024 Telephone [facility] [address] [place] [address] Florecnia Arriola, final finisher forging dies Orders 12/11/2024 Orders Only [facility] [address] [place] [phone] Sravanthi Summers ANP Transaminitis (Primary Dx) 12/01/2024 10:00 AM EDT Office Visit [address] [address] Merritt Germain MD Opioid dependence in remission (CMS/HCC) (Primary Dx); Vaping nicotine dependence, tobacco product; Anxiety and depression; Panic attacks 12/01/2024 Travel 11/30/2024 Refill [facility] [address] [place] [address] Rik Bearden MD 11/24/2024 Refill [facility] [address] [place] [address] Adarsh Lassiter, JAMSHID Uncomplicated opioid dependence (CMS/HCC) 11/07/2024 Telephone [facility] [address] [place] [address] Merritt Germain MD 11/05/2024 Refill [facility] [address] [place] [address] Rik Bearden MD 11/03/2024 10:15 AM EST Office Visit [facility] [address] [place] [address] Merritt Germain MD Uncomplicated opioid dependence (CMS/HCC) (Primary Dx); Vaping nicotine dependence, tobacco product 11/03/2024 Travel 10/27/2024 Refill [facility] [address] [place] [address] Nicole Rubio, JAMSHID Uncomplicated opioid dependence ([facility]/HCC) 10/26/2024 Orders Only GENERIC EXTERNAL DATA DEPARTMENT Provider, Generic External Data from Last 3 Months Immunizations Immunization Administration Dates Next Due Hep B, adult [...] Visit [facility] [address] [place] [address] Merritt Germain MD [address] [place] [address] Health Maintenance Due Date Last Done Comments [...] functioning is improved General No Nicole Rubio, player piano technician Procedure Name Priority Date/Time Associated Diagnosis Comments US SCROTUM DOPPLER Routine 01/18/2025 6: 29 PM EDT LIPASE Routine 01/18/2025 4:14 PM EDT COMPREHENSIVE METABOLIC PANEL Routine 01/18/2025 4:14 PM EDT CBC WITH AUTO DIFFERENTIAL Routine 01/18/2025 4:14 PM EDT URINALYSIS, COMPLETE, WITH REFLEX TO CULTURE Routine 01/15/2025 5:51 PM EDT CHLAMYDIA/N. GONORRHOEAE RNA, TMA, UROGENITAL Routine 01/15/2025 5:51 PM EDT POCT URINALYSIS DIPSTICK Routine 01/09/2025 11:05 AM [...] Recently Relevant to Health Maintenance Results * US SCROTUM DOPPLER (01/18/2025 6:29 PM EDT) Anatomical Region Laterality Modality Abdomen Ultrasound 01/18/2025 6:29 PM EDT Narrative 01/18/2025 6:30 PM EDT ? [facility] ?[address] ?[place] [address] ? Ultrasound Report ? Signed ? Patient: Tere FloresCody ?MR#: [id number] ?? 901 ? : 1980 ?Acct:[id number] ? Age/Sex: 44 / M ?ADM Date: 01/18/25 ? Loc: HO.ED ? Attending Dr: ? Ordering Physician: Ankit Dupree ?? Date of Service: 01/18/25 ?? Procedure(s): US scrotum doppler ?? Accession Number(s): [id number] ? cc: Rik Flaherty MD; Ankit Dupree ? CLINICAL HISTORY: pain ? US Scrotum with Doppler ? Comparison: None ? Findings: ?? Right testicle normal echotexture and measures 4 cm x 2.1 cm x 2.4 cm. ?? Left testicle normal echotexture and measures 3.9 cm x 2 cm x 2.4 cm. ?? Normal color flow and arterial/venous spectral tracing of both testicles. ? Epididymides are unremarkable. ?? No varicoceles. No hydroceles. ? IMPRESSION: ?? Normal scrotal ultrasound. No evidence of torsion. ? This document has been electronically signed by: Margarita Deluca MD on ?? 01/18/2025 18:29:49 ? Dictated By: ?Margarita Deluca MD ? Signed By: ?<Electronically signed by Margarita Deluca MD in OV> ? 01/18/25 1830 ? DD/ 1829 ? TD/TT: 01/18/251828 ? Line Lead: ? Procedure Note Donotuseinterpreter, Image - 01/18/[address] [address] Ultrasound Report Signed Patient: Cody ShepardMR#: [id number] 901 : 1980Acct:[id number] Age/Sex: 44 / MADM Date: 01/18/25 Loc: HO.ED Attending Dr: Ordering Physician: Ankit Dupree Date of Service: 01/18/25 Procedure(s): US scrotum doppler Accession Number(s): [id number] cc: Rik Flaherty MD; Ankit Dupree CLINICAL HISTORY: pain US Scrotum with Doppler Comparison: None Findings: Right testicle normal echotexture and measures 4 cm x 2.1 cm x 2.4 cm. Left testicle normal echotexture and measures 3.9 cm x 2 cm x 2.4 cm. Normal color flow and arterial/venous spectral tracing of both testicles. Epididymides are unremarkable. No varicoceles. No hydroceles. IMPRESSION: Normal scrotal ultrasound. No evidence of torsion. This document has been electronically signed by: Margarita Deluca MD on 01/18/2025 18:29:49 Dictated By: Margarita Deluca MD Signed By: <Electronically signed by Margarita Deluca MD in OV> 01/18/251829 DD/ 28 TD/TT: 01/18/251828 Line Lead: us [facility] External Provider IMG US PROCEDURES Final Result * (ABNORMAL) CBC auto differential (01/18/2025 4:14 PM EDT) Only the most recent of2 resultswithin the time period is included. White Blood Count 5.3 4.8 - 10.8 X10*3/uL [facility] Red Blood Count 4.89 4.60 - 5.80 X10*6/uL [facility] Hemoglobin 14.1 14.0 - 18.0 g/dl [facility] Hematocrit 41.1(L) 42.0 - 52.0 % [facility] Mean Corpuscular Volume 84.0 80.0 - 98.0 fL [facility] Mean Corpuscular Hemoglobin 28.8 27.0 - 33.0 pg [facility] Mean Corpuscular HGB Conc 34.3 31.0 - 36.0 g/dl [facility] Red Cell Distribution Width 12.4 11.0 - 16.0 % [facility] Platelet Count 208 160 - 400 X10*3/uL [facility] Mean Platelet Volume 9.4 9.4 - 12.4 fL [facility] Neutrophils Percent Auto 47.4 45 - 73 % [facility] Imm Gran Pct Auto 0.2 0.0 - 0.4 % [facility] Lymphocytes Percent Auto 41.6(H) 20 - 40 % [facility] Monocytes Percent Auto 7.1 2 - 11 % [facility] Eosinophils Percent Auto 2.6 0 - 4 % [facility] Basophils Percent Auto 1.1 0 - 2 % [facility] NRBC Pct Auto 0.0 0.0 - 0.2 /100WBC [facility] Neutrophils Absolute Auto 2.5 2.0 - 8.3 x10*3/uL [facility] Imm Gran Abs Auto 0.01 0.00 - 0.03 X10*3/uL [facility] Lymphocytes Absolute Auto 2.2 1.2 - 4.9 X10*3/uL [facility] Monocytes Absolute Auto 0.4 0.1 - 1.2 X10*3/uL [facility] Eosinophils Absolute Auto 0.1 0.0 - 0.4 X10*3/uL [facility] Basophils Absolute Auto 0.1 0.0 - 0.2 X10*3/uL [facility] NRBC Abs Auto 0.000 0.0 - 0.012 X10*3/uL [facility] 01/18/2025 4:14 PM EDT 01/18/2025 4:20 PM EDT Generic External Data Provider LAB BLOOD ORDERAB LES Final Result Performing Organization Address City/[facility]/ZIP Co de Phone Number [facility] [address] [place] [address] [phone] * Lipase (01/18/2025 4:14 PM EDT) Lipase 18 8 - 78 U/L [facility] 01/18/2025 4:14 PM EDT 01/18/2025 4:20 PM EDT Generic External Data Provider LAB BLOOD ORDERAB LES Final Result Performing Organization Address [facility] Co de Phone Number [facility] [address] [place] [phone] * (ABNORMAL) Comprehensive Metabolic Panel (01/18/2025 4:14 PM EDT) Only the most recent of2 resultswithin the time period is included. Sodium 147(H) 135 - 145 mmol/L [facility] Potassium 4.5 3.3 - 5.1 mmol/L [facility] Chloride 113(H) 96 - 108 mmol/L [facility] Carbon Dioxide 25 22 - 29 mmol/L [facility] Anion Gap 14 12 - 20 [facility] Urea Nitrogen (BUN) 15 9 - 16 mg/dL [facility] Creatinine, Serum 0.93 0.5 - 1.4 mg/dL [facility] Creatinine Clr Calc Pharmacy 100.7 [facility] Comment:eGFR (calculated fro m the MDRD study equation) and eCrCl(calculated from the Cockcroft-Gault equation) are based ondifferent parameters and may not yield comparable results.If eCrCl result is absurd, please check patient'sheight/weight. Estimated Glomerular Filt Rate >60 [facility] Comment:Chronic Kidney Disea se: Estimated GFR < 60 mL/min/[id number] Kidney Disease: Estimated GFR < 15 mL/min/1.73m2 Glucose 99 60 - 115 mg/dL [facility] Calcium 9.2 8.4 - 10.2 mg/dL [facility] Bilirubin, Total 0.7 0.0 - 1.0 mg/dL [facility] Aspartate Amino Transferase 74(H) 5 - 37 U/L [facility] Alanine Aminotransferase 128(H) 0 - 40 U/L [facility] Total Protein 7.2 6.5 - 8.0 g/dL [facility] Albumin Level 4.1 3.5 - 5.0 g/dL [facility] Alkaline Phosphatase 64 39 - 117 U/L [facility] 01/18/2025 4:14 PM EDT 01/18/2025 4:20 PM EDT us Generic External Data Provider LAB BLOOD ORDERAB LES Final Result [facility] [address] [place] [phone] * Urinalysis, Complete, with Reflex to Culture (01/15/2025 5:51 PM EDT) Color Urine Yellow [facility] Appearance Urine Clear [facility] PH 5.5 5.0 - 9.0 [facility] Glucose Urine UA Negative Negative mg/dL [facility] Urine Blood Negative Negative [facility] Specific [place] - Urine 1.010 1.005 - 1.025 [facility] Urine Protein Negative Neg-Trace mg/dL [facility] Urine Ketones Negative Negative mg/dL [facility] Nitrite Urine Negative Negative [facility] Leukocyte Esterase Urine Negative Negative [facility] RBC Urine 0-2 0 - 2 /HPF [facility] Urine WBC 0-5 0 - 5 /HPF [facility] Urine Squamous Epithelial Cell 0-2 0 - 2 /HPF [facility] Urine Bacteria None Seen None Seen [facility] Hyaline Casts, Urine 0-2 0 - 2 /LPF [facility] 01/15/2025 5:51 PM EDT 01/15/2025 5:55 PM EDT Narrative [facility] - 01/15/2025 6:35 PM EDT [id number], Clean Catch us Generic External Data Provider LAB URINE ORDERAB LES Final Result [facility] [address] [place] [address] [phone] * Chlamydia/N. Gonorrhoeae RNA, TMA, Urogenitial (01/15/2025 5:51 PM EDT) CT PCR NOT DETECTED Not Detect. [facility] Comment:A not detected test result does [...] psychologicalconsequences. NG PCR NOT DETECTED Not Detect. [facility] Comment:A not detected test result does [...] PM EDT 01/15/2025 5:55 PM EDT Narrative [facility] - 01/16/2025 12:25 PM EDT Urine Generic External Data Provider LAB MICROBIOLOGY - GENERAL ORDERABLES Final Result [facility] [address] [place] [phone] * POCT Urinalysis (01/09/2025 11:05 AM EDT) [...] Media Lot # [id number] Lot# Expiration Date [id number] Urine 01/09/2025 11:0 5 AM EDT Rik [...] EDT) Hemoglobin 14.0 14.0 - 18.0 g/dl [facility] 12/26/2024 1:29 PM EDT 12/26/2024 1:29 PM EDT Generic External Data Provider LAB BLOOD ORDERAB LES Final Result Performing Organization Address [facility]/ZIP Co de Phone Number [facility] [address] [place] [phone] * (ABNORMAL) Hematocrit (12/26/2024 1:29 PM EDT) Hematocrit 40.2(L) 42.0 - 52.0 % [facility] 12/26/2024 1:29 PM EDT 12/26/2024 1:29 PM EDT Generic External Data Provider LAB BLOOD ORDERAB LES Final Result Performing Organization Address [facility] de Phone Number [facility] [address] [place] [phone] * (ABNORMAL) Testosterone, Free (Dialysis) And Total, MS (12/26/2024 1:29 PM EDT) Testosterone, Total 100(A) 250 - 1100 ng/dL [facility] Comment:Men with clinically significant hypogonadal symptoms and testosterone valuesrepeatedly in the range of the 200-300 ng/dL or less, may benefit fromtestosterone treatment after adequate risk and benefits counseling.For additional information, please refer tohttps://education.[employer]faq/XGD412(This link is being provided for informational/educational purposes only.)(Note)This test was developed and its analytical performancecharacteristics have been determined by [employer]. It hasnot been cleared or approved by the FDA. This assay hasbeen validated pursuant to the CLIA regulations and isused for clinical purposes. Testosterone, Free 20.4(A) 35.0 - 155.0 pg/mL [facility] Comment:(Note)This test was developed and its analytical performancecharacteristics have been determined by [employer]. It hasnot been cleared or approved by the FDA. This assay hasbeen validated pursuant to the CLIA regulations and isused for clinical purposes.[facility] [id number] [place] [address],[address] [phone] Neel Ray MD, PhDTHIS TEST WAS PERFORMED AT:[place] [address] [place] [phone] 8138TONY RAY MD,PHD 12/26/2024 1:29 PM EDT 12/26/2024 1:29 PM EDT us Generic External Data Provider LAB BLOOD ORDERAB LES Final Result [facility] [address] [place] [phone] * (ABNORMAL) Hepatic Function Panel (12/26/2024 1:29 PM EDT) Bilirubin, Total 0.6 0.0 - 1.0 mg/dL [facility] Bilirubin, Direct 0.1 0.0 - 0.5 mg/dL [facility] Aspartate Amino Transferase 41(H) 5 - 37 U/L [facility] Alanine Aminotransferase 97(H) 0 - 40 U/L [facility] Total Protein 7.0 6.5 - 8.0 g/dL [facility] Albumin Level 4.1 3.5 - 5.0 g/dL [facility] Alkaline Phosphatase 64 39 - 117 U/L [facility] Blood Venous blood specimen / Unknown 12/26/2024 1:29 PM EDT 12/26/2024 1:29 PM EDT us Rik Bates MD LAB BLOOD ORDERABLES Final Result [facility] [address] [place] [phone] * XR KUB and Upright 2 Views (12/13/2024 3:31 PM EDT) Anatomical Region Laterality Modality Radiographic Peggy ging 12/13/2024 3:31 PM EDT Narrative 12/13/2024 3:53 PM EDT ?[facility] ?[address] ?[place] [address] ?XRay Report ? Signed ? Patient: Cody Shepard ?MR#: [id number] ?? 901 ? : 1980 ?Acct:[id number] ? Age/Sex: 44 / M ?ADM Date: 12/13/24 ? Loc: HO.HHCX ? Attending Dr: Briana Young ? Ordering Physician: Briana Young ?? Date of Service: 12/13/24 ?? Procedure(s): XR KUB ?? Accession Number(s): [id number] ? cc: Briana Young ? EXAMINATION: ??XR [...] DD/ 1531 ? TD/TT: 12/13/24 1540 ? Line Lead: ? Procedure Note Donnahomy, Rodrigue - 12/13/2024 [facility] [address] [place] [address] XRay Report Signed Patient: Cody ShepardMR#: [id number] 901 : 1980Acct:[id number] Age/Sex: 44 / MADM Date: 12/13/24 Loc: HO.HHCX Attending Dr: Briana Young Ordering Physician: Briana Young Date of Service: 12/13/24 Procedure(s): XR KUB Accession Number(s): [id number] cc: Briana Young EXAMINATION: XR ABDOMEN 1 [...] 12/13/24 1550 DD/ 1531 TD/TT: 12/13/24 1540 Line Lead: Briana Young AREA COUNSELOR IMG XR PROCEDURES Final Result * XR Chest 2 Views (10/26/2024 4:15 AM EST) Anatomical Region Laterality Modality Chest Radiographic Peggy ging 10/26/2024 4:15 AM EST Narrative 10/26/2024 4:16 AM EST ? [facility] ?[address] ?[place] [address] ?XRay Report ? Signed ? Patient: Carranza Flores,Cody ?MR#: [id number] ?? 901 ? : 1980 ?Acct:[id number] ? Age/Sex: 44 / M ?ADM Date: 10/26/24 ? Loc: HO.ED ? Attending Dr: ? Ordering Physician: Generic ED Physician ?? Date of Service: 10/26/24 ?? Procedure(s): XR chest 2V ?? Accession Number(s): [id number] ? cc: Rik Flaherty MD; Generic ED [...] 10/26/24 0416 ? DD/ 0415 ? TD/TT: 10/26/245 ? Line Lead: ? Procedure Note Caitie, Image - 10/26/2024 [place] [address] XRay Report Signed Patient: Cody ShepardMR#: [id number] 901 : 1980Acct:[id number] Age/Sex: 44 / MADM Date: 10/26/24 Loc: HO.ED Attending Dr: Ordering Physician: Generic ED Physician Date of Service: 10/26/24 Procedure(s): XR chest 2V Accession Number(s): [id number] cc: Rik Flaherty MD; Generic ED Physician [...] in OV> 10/26/24415 DD/ 4 TD/TT: 10/26/24414 Line Lead: [facility] External Provider IMG XR PROCEDURES Edited Result - Final * High Sensitivity Troponin I (10/26/2024 3:53 AM EST) Pathologist [facility] TROPONIN I HIGH SENSITIVITY 4.9 <3.5 - 35.0 ng/L [facility] Comment:The Gillespie high sens itivity Troponin-I results should beused in conjunction with other diagnostic information suchas ECG, clinical observations and information, and patientsymptoms to aid in the diagnosis of [place]. 10/26/2024 3:53 AM EST 10/26/2024 3:58 AM EST Generic External Data Provider LAB BLOOD ORDERAB LES Final Result [facility] [address] [place] [phone] * SARS-CoV-2 RNA, Influenza A/B, and RSV RNA, Ql NAAT (10/26/2024 3:53 AM EST) Pathologist [facility] Influenza A PCR NEGATIVE Negative [facility] Influenza B PCR NEGATIVE Negative [facility] Resp Syncy Virus RNA Qual PCR NEGATIVE Negative [facility] SARS COV2 PCR NEGATIVE Negative [facility] Comment:All test results mus t [...] use by authorized laboratories.Testing performed on the [employer]so[employer]isionXpert utilizingreal-time RT-PCR.All SARS CoV2 and positive influenza A/B results arereported to [facility]. 10/26/2024 3:53 AM EST 10/26/2024 3:58 AM EST us Generic External Data Provider LAB MICROBIOLOGY - GENERAL ORDERABLES Final Result [facility] [address] [place] [phone] * Hepatitis A,B,C Profile (03/08/2024 2:12 PM EDT) Hepatitis A IgM NON-REAC TIVE Nonreactive [facility] LABS Comment:For additional infor tarsha, please refer tohttp://education.[employer]faq/FYN075(This link is being provided for informational/educational purposes only.)THIS TEST PERFORMED AT:[facility] [place] [phone] DIRECTOR: VIDYA ADAMS MD ~Hepatitis B Surface Antibody NON-REAC TIVE Nonreactive [facility] Comment:THIS TEST PERFORMED AT:[facility] [address] [phone] DIRECTOR: VIDYA ADAMS MD Hepatitis B Core Antibody NON-REAC TIVE Nonreactive [facility] Comment:For additional infor mation, please refer tohttp://education.[employer]faq/EGV591(This link is being provided for informational/educational purposes only.)THIS TEST PERFORMED AT:[facility] [address] [phone] DIRECTOR: VIDYA ADAMS MD Hepatitis C Antibody NON-REAC TIVE Nonreactive [facility] Comment:HCV antibody was non -reactive. There is no laboratoryevidence of HCV infection.In most cases, no further action is required. However,if recent HCV exposure is suspected, a test for HCV RNA(test code 07657) is suggested.For additional information, please refer tohttp://[employer]faq/XDB368(This link is being provided for informational/educational purposes only.)THIS TEST PERFORMED AT:[facility] [address] [phone] DIRECTOR: VIDYA ADAMS MD Hepatitis B Surface Ag NON-REAC TIVE Negative [facility] Comment:REFERENCE RANGE: NON -REACTIVEFor additional information, please refer tohttp://[employer]faq/DUI090(This link is being provided for informational/educational purposes only.)THIS TEST PERFORMED AT:[facility] [address] [phone] DIRECTOR: VIDYA ADAMS MD Blood Venous blood specimen / Unknown 03/08/2024 2:12 PM EDT 03/08/2024 3:59 PM EDT Rik Bates MD LAB BLOOD ORDERABLES Final Result [facility] [address] [place] [phone] * (ABNORMAL) Lipid Panel, Standard (03/08/2024 2:12 PM EDT) Triglycerides 240(H) <150 mg/dL [facility] Comment:Desirable Triglyceri de: less than 150 mg/dLBorderline High Triglyceride 150-199 mg/dLHigh Triglyceride: 200-499 mg/dLVery High Triglyceride: greater than or equal to 5OO mg/dL Cholesterol 261(H) <200 mg/dL [facility] Comment:Desirable Cholestero l: less than 200 mg/dLBorderline High Cholesterol: 200-239 mg/dLHigh Cholesterol: greater than 239 mg/dL LDL Cholesterol Calculated 178(H) <100 mg/dL [facility] Comment:Desirable LDL: less than 100 mg/dLNear Optimal/Above Optimal LDL: 110- 129 mg/dLBorderline High LDL: 130-159 mg/dLHigh LDL: 160-189 mg/dLVery High LDL: greater than or equal to 190 mg/dL HDL Cholesterol 35(L) >40 mg/dL [facility] Comment:Desirable HDL: great er than 40 mg/dL Note: This HDL assay may give artificially low results in patients with liver disease. Blood Venous blood specimen / Unknown 03/08/2024 2:12 PM EDT 03/08/2024 3:59 PM EDT Rik Bates MD LAB BLOOD ORDERABLES Final Result [facility] [address] [place] [phone] * HIV 1/2 ANTIGEN/ANTIBODY,FOURTH GENERATION W/RFL (03/27/2022 10:14 AM EDT) [facility] HIV-1/2 ANTIGEN AND ANTIBODIES, 4TH GENERATION W/ REFLEX NON-REACT MARAH NON-REACT MARAH [facility] Comment: HIV-1 antigen and [...] ? For additional information please refer to http://education.[employer]/faq/KRT200 (This link is being provided for informational/ educational purposes only.) ? The performance of this assay has not been clinically validated in patients less than 2 years old. ?? 03/27/2022 10:1 4 AM EDT us Merritt Germain MD LAB BLOOD ORDERABLES Final Res [facility] [address] from Last 3 Months or Most Recently Relevant to Health Maintenance Insurance [facility] ONE CARE < 65 [place] [id number] Care Teams Sales And Service Change Leader Relationship Specialty Start Date End Date Rik Bearden MD [address] [place] [phone] PCP - General Internal Medicine 06/18/15
--- OUTSIDE RECORDS SUMMARY | 2025-01-18 18:46 | XMS_ITS | Encounter Summary ---
Author Organization [employer] Address [address] [place] [address] Care Team Providers Care Data Scientist Name Role Phone Rik Bearden MD Primary Care Provide r Encounter Details Date Type Department Care Team (Late st Contact Info) Description 01/18/2025 Orders Only GENERIC EXTERNAL DATA [...] Upcoming Encounters Date Type Department Care Team ([facility] st Contact Info) Description 02/23/2025 10:00 AM EDT Office Visit [facility] MEDICINE [address] [place] [phone] Merritt Germain MD [address] [place] [address] documented as of this encounter Goals Goal Patient Goal Type Associated Problems Recent Progress Patient-Stated? Author Decrease the frequency of unwanted emotions so that daily functioning is improved General Nicole Lei RN documented as of this encounter Procedures Procedure Name Priority Date/Time Associated Diagnosis Comments US SCROTUM DOPPLER Routine 01/18/2025 6: 29 PM EDT CBC WITH AUTO DIFFERENTIAL Routine 01/18/2025 4:14 PM EDT LIPASE Routine 01/18/2025 4:14 PM EDT COMPREHENSIVE METABOLIC PANEL Routine 01/18/2025 4:14 PM EDT documented in this encounter Results * US SCROTUM DOPPLER (01/18/2025 6:29 PM EDT) Anatomical Region Laterality Modality Abdomen Ultrasound 01/18/2025 6:29 PM EDT Narrative 01/18/2025 6:30 PM EDT ? [facility] ?[address] ?[place] [address] ? Ultrasound Report ? Signed ? Patient: Carranza Flores,Cody ?MR#: [id number] ?? [id number] ? : 1980 ?Acct:[id number] ? Age/Sex: 44 / M ?ADM Date: 01/18/25 ? Loc: HO.ED ? Attending Dr: ? Ordering Physician: Ankit Dupree ?? Date of Service: 01/18/25 ?? Procedure(s): US scrotum doppler ?? Accession Number(s): [id number] ? cc: Rik Flaherty MD; Ankit Dupree [...] ? Signed By: ?<Electronically signed by Margarita Wolfstein, MD in OV> ? 01/18/25 1830 ? DD/ 28 ? TD/TT: 01/18/251828 ? Traffic Technician: ? Procedure Note Rodrigue Blood - 01/18/[address] [address] Ultrasound Report Signed Patient: Cody ShepardMR#: [id number] : 1980Acct:[id number] Age/Sex: 44 / MADM Date: 01/18/25 Loc: HO.ED Attending Dr: Ordering Physician: Ankit Dupree Date of Service: 01/18/25 Procedure(s): US scrotum doppler Accession Number(s): [id number] cc: Rik Flaherty MD; Ankit Dupree CLINICAL [...] Deluca MD on 01/18/2025 18:29:49 Dictated By: Magrarita Deluca MD Signed By: <Electronically signed by Margarita Deluca MD in OV> 01/18/251829 DD/ 28 TD/TT: 01/18/251828 Traffic Technician: [facility] External Provider IMG US PROCEDURES Final Result * Lipase (01/18/2025 4:14 PM EDT) Pathologist [facility] Lipase 18 8 - 78 U/L [facility] 01/18/2025 4:14 PM EDT 01/18/2025 4:20 PM EDT Generic External Data Provider LAB BLOOD ORDERAB LES Final Result [facility] [address] [place] [phone] * (ABNORMAL) Comprehensive Metabolic Panel (01/18/2025 4:14 PM EDT) Sodium 147(H) 135 - 145 mmol/L [facility] Potassium 4.5 3.3 - 5.1 mmol/L [facility] Chloride 113(H) 96 - 108 mmol/L [facility] Carbon Dioxide 25 22 - 29 mmol/L [facility] Anion Gap 14 12 - 20 [facility] Urea Nitrogen (BUN) 15 9 - 16 mg/dL [facility] Creatinine, Serum 0.93 0.5 - 1.4 mg/dL [facility] Creatinine Clr Calc Pharmacy 100.7 [facility] Comment:eGFR (calculated fro m the MDRD study equation) and eCrCl(calculated from the Cockcroft-Gault equation) are based ondifferent parameters and may not yield comparable results.If eCrCl result is absurd, please check patient'sheight/weight. Estimated Glomerular Filt Rate >60 [facility] Comment:Chronic Kidney Disea se: Estimated GFR < 60 mL/min/1.10u8Nuppxw Kidney Disease: Estimated GFR < 15 mL/min/1.73m2 Glucose 99 60 - 115 mg/dL [facility] Calcium 9.2 8.4 - 10.2 mg/dL [facility] Bilirubin, Total 0.7 0.0 - 1.0 mg/dL [facility] Aspartate Amino Transferase 74(H) 5 - 37 U/L [facility] Alanine Aminotransferase 128(H) 0 - 40 U/L [facility] Total Protein 7.2 6.5 - 8.0 g/dL [facility] Albumin Level 4.1 3.5 - 5.0 g/dL [facility] Alkaline Phosphatase 64 39 - 117 U/L [facility] 01/18/2025 4:14 PM EDT 01/18/2025 4:20 PM EDT us Generic External Data Provider LAB BLOOD ORDERAB LES Final Result [facility] [address] [place] [phone] * (ABNORMAL) CBC auto differential (01/18/2025 4:14 PM EDT) White Blood Count 5.3 4.8 - 10.8 X10*3/uL [facility] Red Blood Count 4.89 4.60 - 5.80 X10*6/uL [facility] Hemoglobin 14.1 14.0 - 18.0 g/dl [facility] Hematocrit 41.1(L) 42.0 - 52.0 % [facility] Mean Corpuscular Volume 84.0 80.0 - 98.0 fL [facility] Mean Corpuscular Hemoglobin 28.8 27.0 - 33.0 pg [facility] Mean Corpuscular HGB Conc 34.3 31.0 - 36.0 g/dl [facility] Red Cell Distribution Width 12.4 11.0 - 16.0 % [facility] Platelet Count 208 160 - 400 X10*3/uL [facility] Mean Platelet Volume 9.4 9.4 - 12.4 fL [facility] Neutrophils Percent Auto 47.4 45 - 73 % [facility] Imm Gran Pct Auto 0.2 0.0 - 0.4 % [facility] Lymphocytes Percent Auto 41.6(H) 20 - 40 % [facility] Monocytes Percent Auto 7.1 2 - 11 % [facility] Eosinophils Percent Auto 2.6 0 - 4 % [facility] Basophils Percent Auto 1.1 0 - 2 % [facility] NRBC Pct Auto 0.0 0.0 - 0.2 /100WBC [facility] Neutrophils Absolute Auto 2.5 2.0 - 8.3 x10*3/uL [facility] Imm Gran Abs Auto 0.01 0.00 - 0.03 X10*3/uL [facility] Lymphocytes Absolute Auto 2.2 1.2 - 4.9 X10*3/uL [facility] Monocytes Absolute Auto 0.4 0.1 - 1.2 X10*3/uL [facility] Eosinophils Absolute Auto 0.1 0.0 - 0.4 X10*3/uL [facility] Basophils Absolute Auto 0.1 0.0 - 0.2 X10*3/uL [facility] NRBC Abs Auto 0.000 0.0 - 0.012 X10*3/uL [facility] 01/18/2025 4:14 PM EDT 01/18/2025 4:20 PM EDT us Generic External Data Provider LAB BLOOD ORDERAB LES Final Result Performing Organization Address [facility]/State/ZIP Co de Phone Number [facility] [address] [place] [phone] documented in this encounter Visit Diagnoses Not on filedocumented in this encounter Additional Health Concerns Assessment Noted Time PHQ-9 Depression Total Score: 14 025 12:55 PM EDT documented as of this encounter Care Teams Data Scientist Relationship Specialty Start Date End Date Rik Bearden MD [address] [place] [phone] PCP - General Internal Medicine 06/18/15 documented as of this encounter
--- OUTSIDE RECORDS SUMMARY | 2025-01-18 18:47 | XMS_ITS | Encounter Summary ---
Author Organization [employer] Address [address] [facility] 7 [place] [address] Care Team Providers Care Business Services Clerk Name Role Phone Rik Bearden MD Primary Care Provide r Reason for Visit * Reason Comments Med Refill Encounter Details Date Type Department Care Team (Late Contact Info) Description 05/02/[address] [facility] [address] [place] [address] Sravanthi Summers, TAMMY [address] [place] [address] Constipation, unspecified constipation type Social History Tobacco [...] Upcoming Encounters Date Type Department Care Team ([facility] Contact Info) Description 02/23/2025 10:00 AM EDT Office Visit [facility] [address] [place] [phone] Merritt Germain MD [address] [place] [address] documented as of this encounter Visit Diagnoses Diagnosis Constipation, unspecified constipation type documented in this encounter Care Teams Business Services Clerk Relationship Specialty Start Date End Date Rik Bearden MD [address] [place] [phone] PCP - General Internal Medicine 06/18/15 documented as of this encounter
--- OUTSIDE RECORDS SUMMARY | 2025-01-18 18:47 | XMS_ITS | Encounter Summary ---
Author Organization [employer] Address [address] 7[address] [place] [address] Care Team Providers Care Dentist Private Practice Name Role Phone Rik Bearden MD Primary Care Provide r Reason for Visit * Reason Comments Med Change Request Encounter Details Date Type Department Care Team ([facility] Contact Info) Description 10/01/2024 Refill [facility] [address] [place] [address] Rik Bearden MD [address] [place] [address] Social History Tobacco Use Types Packs/Day Years [...] Description 02/23/2025 10:00 AM EDT Office Visit [facility] [address] [place] [address] Merritt Germain MD [address] [place] [address] documented as of this encounter Visit Diagnoses Not on filedocumented in this encounter Additional Health Concerns Assessment Noted Time PHQ-9 Depression Total Score: 14 024 1:11 PM EST documented as of this encounter Care Teams Dentist Private Practice Relationship Specialty Start Date End Date Rik Bearden MD [address] [place] [address] PCP - General Internal Medicine 06/18/15 documented as of this encounter
--- OUTSIDE RECORDS SUMMARY | 2025-01-18 18:47 | XMS_ITS | Encounter Summary ---
Author Organization [employer] Address [address] [place] [address] Care Team Providers Care Lead Operator Name Role Phone Rik Bearden MD Primary Care Provide r Reason for Visit * Reason Comments Med Refill Encounter Details Date Type Department Care Team ([facility] st Contact Info) Description 01/13/2025 Refill [facility] [address] [place] [address] Rik Bearden MD [address] [place] [address] Social History Tobacco Use Types Packs/Day Years [...] Description 02/23/2025 10:00 AM EDT Office Visit [facility] [address] [place] [address] Merritt Germain MD [address] [place] [address] documented as of this encounter Goals Goal [...] documented as of this encounter Care Teams Lead Operator Relationship Specialty Start Date End Date Rik Bearden MD [address] [place] [phone] PCP - General Internal Medicine 06/18/15 documented as of this encounter
--- OUTSIDE RECORDS SUMMARY | 2025-01-18 18:47 | XMS_ITS | Encounter Summary ---
Author Organization [employer] Address [address] [facility] 7 [place] [address] Care Team Providers Care Director Decision Support Name Role Phone Rik Bearden MD Primary Care Provide r Reason for Visit * Reason Onset Date Comments Triage 12/28/2022 Encounter Details Date Type Department Care Team ([facility] st Contact Info) Description 12/28/2022 Telephone [facility] MED[facility]INE [address] [place] [address] Rik Bearden MD [address] [place], [place] [phone] Triage Social History Tobacco Use Types Packs/Day [...] Triage call Pt reports being seen in [facility] 12/25 for pain under arm /rib area [...] to report ED visit on 12/25/22 at [facility]. Seen for . Patient advised will forward to team nurse for follow up. Patient still has pain around rib area (stabbing pain) and sore throat. documented in this encounter Plan of Treatment Upcoming Encounters Date Type Department Care Team (Late st Contact Info) Description 02/23/2025 10:00 AM EDT Office Visit [facility] [address] [place] [phone] Merritt Germain MD [address] [place] [address] documented as of this encounter Visit Diagnoses Diagnosis Uncomplicated opioid dependence (CMS/HCC) documented in this encounter Care Teams Director Decision Support Relationship Specialty Start Date End Date Rik Bearden MD [address] [place], [place] [phone] PCP - General Internal Medicine 06/18/15 documented as of this encounter
[2025-01-18 18:52] VITALS: BP 126/79; PULSE 69; RESP 18; TEMP 36.8; O2SAT 97
== END 2025-01-18 18:53 | disposition home or self-care (01) ==
PROVIDERS: Physician Assistant; Emergency Provider Emergency Medicine; PCP Internal Medicine
DX: N41.0 Acute prostatitis (principal); R10.30 Lower abdominal pain, unspecified; N50.82 Scrotal pain
CPT/HCPCS: 36415; 76870; 80053; 83690; 85025; 93975; 99282; 99284

== ENCOUNTER → 2025-01-18 15:50 | Outpatient (BNV) | payer OTHER, SELFPAY | PROVIDERS: Emergency Provider Emergency Medicine; PCP Internal Medicine; Visit Provider Specialist | DX: N50.82 Scrotal pain (principal) | CPT/HCPCS: 76870; 93975 ==

== ENCOUNTER 2025-02-06 11:11 | Outpatient (REF) | payer OTHER, SELFPAY ==
--- OUTSIDE RECORDS SUMMARY | 2025-02-06 12:54 | XMS_ITS | Encounter Summary ---
Author Organization [employer] Address [address] [place] [address] Care Team Providers Care Rand Butting Machine Operator Name Role Phone Rik Bearden MD Primary Care Provide r Reason for Visit * Reason Comments Med Change Request Encounter Details Date Type Department Care Team ([facility] Contact Info) Description 11/30/2024 Refill [facility] [address] [place] [address] Rik Bearden MD [address] [place] [address] Social History Tobacco Use Types Packs/Day Years [...] Description 02/23/2025 10:00 AM EDT Office Visit [facility] [address] [place] [address] Merritt Germain MD [address] [place] [address] documented as of this encounter Visit Diagnoses Not on filedocumented in this encounter Additional Health Concerns Assessment Noted Time PHQ-9 Depression Total Score: 14 024 1:11 PM EST documented as of this encounter Care Teams Rand Butting Machine Operator Relationship Specialty Start Date End Date Rik Bearden MD [address] [place] [address] PCP - General Internal Medicine 06/18/15 documented as of this encounter
[2025-02-06 14:20] LABS: Prostate Specific Antigen Scr 0.66 ng/mL (<0.05-4.0)
[2025-02-07 05:53] LABS: Herpes Simplex Type 2 IgG <0.90 index
== END 2025-02-06 11:12 | disposition home or self-care (01) ==
LOC: HO.HHCL 11:11
PROVIDERS: Visit Provider Internal Medicine
DX: R10.2 Pelvic and perineal pain (principal); R59.0 Localized enlarged lymph nodes; R30.0 Dysuria; Z12.5 Encounter for screening for malignant neoplasm of prostate
CPT/HCPCS: 36415; 84153; 86695; 86696; 87255

== ENCOUNTER 2025-03-01 09:43 | Outpatient (AMB) | payer OTHER, SELFPAY ==
--- NOTE | 2025-03-01 09:46 | MHC.OFFVIS ---
Intake Visit Reasons: Penile Pain Intake Note: Patient is present for PENILE PAIN Urology Medication:NONE Antibiotic Allergy:NONE Blood Thinner:NONE Welcome Wagon Host/Hostess Required: No Allergies shellfish derived Allergy (Intermediate, Verified 04/21/25 17:39) Rash HPI Comments Details: Cody is a pleasant male. He is a patient of Dr. Daniels. He is seen for the following urologic conditions. 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 Mother No problems noted. Paternal Aunt Lung cancer Social History Alcohol intake: never Patient Tobacco Use Status: Former Tobacco user Tobacco use type: Cigarette Years Smoked: 23 Years e-Cigarette/Vaping Use: Currently Using Current occupational status: disabled Review of Systems Const Denies chills and Denies fever(s) Card Reports no additional complaints and Denies syncope Resp Denies cough GI Denies abdominal pain and Denies heartburn Reports as per HPI and Denies change in libido Neuro Denies syncope Psych Denies change in libido Endo Denies change in libido Physical Exam Const General: cooperative, healthy appearing, comfortable and no acute distress Orientation/consciousness: patient oriented x3 HEENT Face and sinus: Yes normal facial exam Mouth: moist mucous membranes Neck Neck: Yes normal visual inspection, Yes full ROM and Yes trachea midline Chest Chest palpation & inspection: normal inspection of the chest Resp Effort & Inspection: normal respiratory effort, able to speak in complete sentences and no respiratory distress GI Inspection: Yes normal to inspection Back/Spine/Pelvis Cervical Spine: normal cervical lordosis Thoracic/Lumbar Spine: thoracic and lumbar spine normal to inspection Skin General skin exam: no rashes or lesions noted Neuro General: patient oriented x3, gait normal, tone normal and moves all extremities Extrem General: Yes normal to inspection and Yes capillary refill normal Assessment & Plan Assessment & Plan (1) Penile pain: Code(s): N48.89 - Other specified disorders of penis Category: Medical Plan P.r.n. follow-up Patient Instructions: This note is constructed using voice recognition software. While every effort has been made to ensure accuracy fairground operator errors may have been included. Imaging studies, laboratory and physical exam results were discussed and reviewed in detail. No major barriers to patient understanding were identified. An opportunity to ask questions regarding the treatment plan was provided. All questions were answered. The patient expressed understanding and agreement with the above treatment plan. The patient is aware they should contact our office by phone for worsening of their current condition or the appearance of new urologic symptoms. Compliance is encouraged with any medications and followup testing that is ordered. It is a privilege to participate in the urologic care of your patient. If you have any questions or concerns regarding treatment for the above conditions, or other urologic issues, please do not hesitate to contact me. The office telephone contact is [phone]. Sincerely, Dr Jose Parsons MD, [facility] - Urology Compassionate Specialist Care for the Genitourinary System Coding Level of Care Code New Pt Level 3 (27206) Diagnoses Penile pain N48.89
--- OUTSIDE RECORDS SUMMARY | 2025-03-01 10:57 | XMS_ITS | Data Portability ---
Author Organization [employer], [facility] [facility] Address [address] [place] [address] Care Team Providers Care Esthetician Permanent Makeup Artist Name Role Phone [facility] R eferring Provider [facility] Referring Provider Assessment No assessment recorded. Plan of Treatment Reminders Order Date Submit Date Provider Last Modified By Organization Details Last Modified Time Details Appointments None record ed. Lab None record ed. Referral None record ed. Procedures None record ed. Surgeries None record ed. Imaging None record ed. Medication Orders None record ed. Patient TargetsNo targets recorded. Patient InstructionsNo instructions recorded. Reason for Referral None Reported. Results Created Date Observation Date Name Description Value Unit Range Abnormal Flag Note LastModifiedBy Organization Detail LastModifiedTime 05/01/2005/02/2022 UA W/REF RAY CULTU RE appear/color YELLO W CLEAR Not Available [facility] (Centralized Electronic Ordering - All Locations) Patient Can Go To The Location Of Their Choice, 05/02/2022 00:58:33 05/01/2005/02/2022 UA W/REF RAY CULTU RE sp. gravity 1.030 (1.002 -1.030 ) Not Available [facility] (Centralized Electronic Ordering - All Locations) Patient Can Go To The Location Of Their Choice, 05/02/2022 00:58:33 05/01/2005/02/2022 UA W/REF RAY CULTU RE urine pH 5.5 (5.0-8 .0) Not Available [facility] (Centralized Electronic Ordering - All Locations) Patient Can Go To The Location Of Their Choice, 05/02/2022 00:58:33 05/01/20 22 05/02/2022 UA W/REF RAY CULTU RE urine albumin NEGATI VE (neg) Not Available [facility] (Centralized Electronic Ordering - All Locations) Patient Can Go To The Location Of Their Choice, 05/02/2022 00:58:33 05/01/2005/02/2022 UA W/REF RAY CULTU RE urine glucose NEGATI VE (neg) Not Available [facility] (Centralized Electronic Ordering - All Locations) Patient Can Go To The Location Of Their Choice, 05/02/2022 00:58:33 05/01/2005/02/2022 UA W/REF RAY CULTU RE urine ketones NEGATI VE (neg) Not Available [facility] (Centralized Electronic Ordering - All Locations) Patient Can Go To The Location Of Their Choice, 05/02/2022 00:58:33 05/01/2005/02/2022 UA W/REF RAY CULTU RE urine bilirubin NEGATI VE (neg) Not Available [facility] (Centralized Electronic Ordering - All Locations) Patient Can Go To The Location Of Their Choice, 05/02/2022 00:58:33 05/01/2005/02/2022 UA W/REF RAY CULTU RE urine hemoglobin NEGATI VE (neg) Not Available [facility] (Centralized Electronic Ordering - All Locations) Patient Can Go To The Location Of Their Choice, 05/02/2022 00:58:33 05/01/2005/02/2022 UA W/REF RAY CULTU RE urine nitrite NEGATI VE (neg) Not Available [facility] (Centralized Electronic Ordering - All Locations) Patient Can Go To The Location Of Their Choice, 05/02/2022 00:58:33 05/01/2005/02/2022 UA W/REF RAY CULTU RE urine leukocyte NEGATI VE (neg) Not Available [facility] (Centralized Electronic Ordering - All Locations) Patient Can Go To The Location Of Their Choice, 05/02/2022 00:58:33 05/01/2005/02/2022 UA W/REF RAY CULTU RE urobilinogen NORMAL mg/dL (norm) Not Available [facility] (Centralized Electronic Ordering - All Locations) Patient Can Go To The Location Of Their Choice, 05/02/2022 00:58:33 05/01/2005/02/2022 UA W/REF RAY CULTU RE urine WBCs 1 /hpf (0-5) Not Available [facility] (Centralized Electronic Ordering - All Locations) Patient Can Go To The Location Of Their Choice, 05/02/2022 00:58:33 05/01/2005/02/2022 UA W/REF RAY CULTU RE urine RBCs <1 /hpf (0-3) Not Available [facility] (Centralized Electronic Ordering - All Locations) Patient Can Go To The Location Of Their Choice, 05/02/2022 00:58:33 05/01/2005/02/2022 UA W/REF RAY CULTU RE mucus SLIGHT /lpf Not Available [facility] (Centralized Electronic Ordering - All Locations) Patient Can Go To The Location Of Their Choice, 05/02/2022 00:58:33 05/01/2005/02/2022 UA W/REF RAY CULTU RE clarity CLEAR (clear ) Not Available [facility] (Centralized Electronic Ordering - All Locations) Patient Can Go To The Location Of Their Choice, 05/02/2022 00:58:33 05/01/2005/02/2022 UA W/REF RAY CULTU RE culture indication CULTUR E NOT INDICA JOSE J Not Available [facility] (Centralized Electronic Ordering - All Locations) Patient Can Go To The Location Of Their Choice, [id number] 05/02/2022 00:58:33 Result Notes None recorded. Medical Equipment None Reported. Medications Name Sig Start Date Stop Date Status Note LastModified by Organization Details LastModified Time cyclobenzapr ine 10 mg tablet TAKE 1 TABLET BY MOUTH THREE TIMES A DAY NEEDED FOR MUSCLE SPASM active Not Available Not Available No t Available amoxicillin 500 mg capsule TAKE 1 CAPSULE BY MOUTH EVERY 12 HOURS FOR 10 DAYS active Not Available Not Available Not Available azithromycin 250 mg tablet TAKE 2 TABLETS BY MOUTH TODAY, THEN TAKE 1 TABLET DAILY FOR 4 DAYS active Not Available Not Available No t Available senna 8.6 mg tablet TAKE 1-2 TABLETS BY MOUTH AT BEDTIME NEEDED FOR CONSTIPATIO N (NATURAL INTESTINAL STIMULANT). active Not Available Not Available Not Available sucralfate 100 mg/mL oral suspension TAKE 10 ML (1 G) BY MOUTH EVERY 6 (SIX) HOURS IF NEEDED (HEARTBURN) . active Not Available Not Available No t Available hydroxyzine HCl 50 mg tablet TAKE 1 TABLET BY MOUTH AT BEDTIME NEEDED FOR SLEEP active Not Available Not Available No t Available cimetidine 300 mg tablet TAKE 1 TABLET BY MOUTH EVERY DAY active Not Available Not Available No t Available omeprazole 40 mg capsule,babita yed release TAKE 1 [...] 2.5 % topical cream with perineal applicator INSERT INTO THE RECTUM EVERY 12 HOURS. active Not Available Not Available No t Available methocarbamo l 750 mg tablet TAKE 1 TABLET BY MOUTH EVERY 6 HOURS NEEDED FOR MUSCLE SPASMS active Not Available Not Available No t Available baclofen 10 mg tablet TAKE 1 TABLET BY MOUTH 2 TIMES EVERY DAY NEEDED FOR MUSCLE SPASMS active Not Available Not Available No t [...] MINUTES TO 1 HOUR BEFORE A MEAL active Not Available Not Available No t Available mirtazapine 15 mg tablet TAKE 1 TABLET BY MOUTH EVERYDAY AT BEDTIME active Not Available Not Available No t Available gabapentin 100 mg capsule TAKE 1 CAPSULE (100 MG) BY MOUTH EVERY 8 (EIGHT) HOURS. active Not Available Not Available No t Available ibuprofen 600 mg tablet TAKE 1 TABLET EVERY 6 HOURS NEEDED FOR PAIN MAX 2400 MG/DAY active Not Available Not Available Not Available levofloxacin 500 mg tablet TAKE 1 TABLET BY MOUTH EVERY DAY active Not Available Not Available No t Available fluticasone propionate 50 mcg/actuatio n nasal spray,suspen miguel SPRAY 1 SPRAY INTO EACH NOSTRIL TWICE A DAY active Not Available Not Available Not Available loratadine 10 mg tablet TAKE 1 TABLET BY MOUTH EVERY DAY active Not Available Not Available No t Available naproxen 500 mg tablet TAKE 1 TABLET BY MOUTH TWICE A DAY NEEDED FOR PAIN FOR 10 DAYS active Not Available Not Available No t Available prednisolone sodium phosphate 5 mg base/5 mL (6.7 mg/5 mL) oral soln GARGLE AND SWALLOW 5MLS BY MOUTH TWICE DAILY FOR 7 DAYS active Not Available Not Available No [...] Available Not Available No t Available duloxetine 30 mg capsule,babita yed release TAKE 1 CAPSULE BY MOUTH EVERY DAY active Not Available Not Available No t Available duloxetine 60 mg capsule,babita yed release TAKE 1 CAPSULE BY MOUTH EVERY DAY active Not Available Not Available No t Available lactulose 10 gram/15 mL oral solution TAKE 15 ML BY MOUTH EVERY DAY active Not Available Not Available No t Available Flovent HFA 110 mcg/actuatio n aerosol inhaler INHALE 2 PUFFS BY MOUTH DAILY active Not Available Not Available Not Available Symbicort 160 mcg-4.5 mcg/actuatio n HFA aerosol inhaler TAKE 2 PUFFS BY MOUTH TWICE A DAY X30 DAYS active Not Available Not Available No t Available diclofenac 1 % topical gel PLEASE SEE ATTACHED FOR DETAILED DIRECTIONS active Not Available Not Available N ot Available buprenorphin e 2 mg-naloxone 0.5 mg sublingual film DISSOLVE 2 FILMS UNDER THE TONGUE ONCE A DAY active Not Available Not Available N ot Available buprenorphin e 8 mg-naloxone [address] FILM UNDER THE TONGUE IN THE MORNING FOR 14 DAYS. active Not Available Not Available No t Available EC-Naproxen 500 mg tablet,delay ed release TAKE 1 TABLET BY MOUTH TWICE A DAY WITH FOOD active Not Available Not Available No t Available Vitals Date Recorded Respiratory rate Heart rate Oxygen saturation Oxygen saturation in Arterial blood by Pulse oximetry Body temperature Systolic blood pressure Diastolic blood pressure Provider Name and Address Organization Details Last Updated DateTime 2 16 /min 65 /min 99 % 99 % 97.8 [degF] 135 mm[Hg] 74 mm[Hg] Not Available [facility] - production 2 13:11:30 Social History None recorded. Functional Status None recorded. Mental Status None recorded. Family History Nothing Reported. Medical History No medical history recorded. Past Encounters Encounter ID Performer Location Encounter Start Date Encounter Closed Date Diagnosis/Indication Diagnosis SNOMED-CT Code Diagnosis ICD10 Code Diagnosis Note [id number] Iram Fontenot MD [facility] - [facility] [address] [place] [address] 05/01/2022 12:53:58 05/07/2022 12:57:02 Dysuria 88242249 R30.9 hemodynami olman stable, UA negative for LE, nitrites and blood, making infection or nephrolith iasis less likely. urine quite concentrat ed, so suspect dehydratio n may be driving some sx. recommende d oral hydration and educated on warning sx. Health Concerns Section Related Observation LastModified by Organization Detai ls LastModified Time None Recorded Concern Status LastModified by Organization Details LastModified Time None Recorded Advance Directives Directive None Recorded Payers Insurance Date Sequence Insurance Name Policy Number Policy Reece Covered Member ID Reece Member ID Guarantor Name 05/01/2022 1 [facility] - DOS PRIOR TO 2022 - DUAL ELIGIBLE (MEDICARE REPLACEMENT/ADV ANTAGE - HMO) Cody Flores [id number] Cody Flores Notes Date Note Type Note Provider Name and Address Organization Details Recorded Time 05/01/2022 text/html HPI: History Hypertriglyceridem ia, Depression. Seen at [facility], negative covid.04/30/22 Constipation placed on Lactulose 15cc daily. Now with pressure and burning with urination and penile burniing with pain radiating into legs. .................. .................. .................. .................. .................. .................. .................. ............... CRC Nursing Assessment: Comments: CRC RN did not require any additional information to process this visit. .................. .................. .................. .................. .................. .................. .................. ............... Manager Coding Note: Dysuria for 2 days. Vitals, assessment, urine dip, cultures for lab. Pt encouraged to hydrate .................. .................. .................. .................. .................. .................. .................. ............... Disposition: Fulfilled Iram Fontenot MD [address] [facility],[address], [place], [address], INNA ARTHUR 03/26/2023 00:23:23
== END 2025-03-01 10:25 | disposition home or self-care (01) ==
LOC: HO.HUSH 09:44
PROVIDERS: PCP Internal Medicine; Visit Provider Urology
DX: N48.89 Other specified disorders of penis (principal)
CPT/HCPCS: 99499

== ENCOUNTER 2025-03-14 14:47 | Outpatient (REF) | payer OTHER, SELFPAY ==
--- NOTE | ~2025-03-14 | US_ITS ---
EXAMINATION: US RIGHT INGUINAL, LIMITED/FOLLOW UP CLINICAL INFORMATION: No lymphadenopathy. COMPARISON: Correlated to pelvic ultrasound dated March 14, 2024. TECHNIQUE: Limited real-time ultrasound of the region of concern right inguinal with a linear transducer using grayscale and color Doppler technique. FINDINGS: There are at least 3 well-defined fatty hilum lymph nodes, the largest measures 1.3 cm. US/US pelvic limited IMPRESSION: Nonspecific 1.3 cm dominant lymph node, right inguinal. Electronically signed by: Abhijit Bee MD 03/14/2025 03:37 PM EDT
--- OUTSIDE RECORDS SUMMARY | 2025-03-14 15:16 | XMS_ITS | Clinical Summary ---
Author Organization [facility] [place] [address] Care Team Providers Care Safety Sealer Name Role Phone Unavailable Primary Care Provider [...] 2023-2 5 season) 2024 Influenza Vaccine (#1) 2025 HIB Vaccines Aged Out No longer [...] 5 Years) and At-Risk Patients (6 to 49 Years) Aged Out No longer eligible b ased on patient's age to complete this topic RSV Immunization Patients Un maynor 20 months Aged Out No longer eligible b ased on patient's age to complete this topic Varicella Vaccines Aged Out No longer eligible based on patient's age to complete this topic
--- OUTSIDE RECORDS SUMMARY | 2025-03-14 15:16 | XMS_ITS | Encounter Summary ---
Author Organization [employer] Address [address] [place] [address] Care Team Providers Care External Grinder Tool Name Role Phone Rik Bearden MD Primary Care Provide r Reason for Visit * Reason Comments Med Change Request Encounter Details Date Type Department Care Team ([facility] Contact Info) Description 11/30/2024 Refill [facility] [address] [place] [address] Rik Bearden MD [address] [place] [address] Social History Tobacco Use Types Packs/Day Years [...] Care Team (Late st Contact Info) Description 04/20/2025 9:45 AM EDT Clinical Support [facility] [address] [place] [address] Nicole Rubio RN documented as of this encounter Visit Diagnoses Not on filedocumented in this encounter Additional Health Concerns Assessment Noted Time PHQ-9 Depression Total Score: 14 024 1:11 PM EST documented as of this encounter Care Teams External Grinder Tool Relationship Specialty Start Date End Date Rik Bearden MD [address] [place] [address] PCP - General Internal Medicine 06/18/15 documented as of this encounter
--- OUTSIDE RECORDS SUMMARY | 2025-03-14 15:16 | XMS_ITS | Data Portability ---
Author Organization [employer], [facility] Address [address] [place] [address] Care Team Providers Care Printer'S Devil Name Role Phone [facility] R eferring Provider [facility] Referring Provider Assessment No assessment [...] Go To The Location Of Their Choice, [id number] 05/02/2022 00:58:33 Result Notes None recorded. Medical [...] blood by Pulse oximetry Body temperature Systolic And Diastolic Provider Name and Address Organization Details Last Updated DateTime 2 16 /min 65 /min 99 % 99 % 97.8 [degF] 135/74 mm[Hg] Not Available [facility] - [facility] 2 13:11:30 Social History None recorded. Functional Status None recorded. Mental Status None recorded. Family History Nothing Reported. Medical History No medical history recorded. Past Encounters Encounter ID Performer Location Encounter Start Date Encounter Closed Date Diagnosis/Indication Diagnosis SNOMED-CT Code Diagnosis ICD10 Code Diagnosis Note [id number] Iram Fontenot MD Main - [facility] [address] [place] [address] 05/01/2022 12:53:58 05/07/2022 12:57:02 Dysuria 26180251 R30.9 hemodynami olman stable, UA negative for [...] Reece Member ID Guarantor Name 05/01/2022 1 [facility] - DOS PRIOR TO 2022 - DUAL ELIGIBLE (MEDICARE REPLACEMENT/ADV ANTAGE - HMO) Cody Flores [id number] Cody Flores Notes Date Note Type Note Provider Name and Address Organization Details Recorded Time 05/01/2022 text/html HPI: History Hypertriglyceridem ia, Depression. Seen at [facility], negative covid.04/30/22 Constipation placed on Lactulose 15cc daily. Now with pressure and burning with urination and penile burniing with pain radiating into legs. .................. .................. .................. .................. .................. .................. .................. ............... CRC Nursing Assessment: Comments: CRC RN did not require any additional information to process this visit. .................. .................. .................. .................. .................. .................. .................. ............... Communication Spec Note: Dysuria for 2 days. Vitals, assessment, urine dip, cultures for lab. Pt encouraged to hydrate .................. .................. .................. .................. .................. .................. .................. ............... Disposition: Fulfilled Iram Fontenot MD [address] [facility],[address], [place], [address], [email or web address] 03/26/2023 00:23:23
== END 2025-03-14 14:48 | disposition home or self-care (01) ==
LOC: HO.US 14:47
PROVIDERS: PCP Internal Medicine; Visit Provider Internal Medicine
DX: R59.0 Localized enlarged lymph nodes (principal); R10.2 Pelvic and perineal pain
CPT/HCPCS: 76857

== ENCOUNTER → 2025-03-14 14:51 | Outpatient (BNV) | payer OTHER, SELFPAY | PROVIDERS: PCP Internal Medicine; Visit Provider Radiology Diagnostic Radiology | DX: R59.0 Localized enlarged lymph nodes (principal) | CPT/HCPCS: 76857 ==

== ENCOUNTER 2025-04-12 06:02 | Emergency (ER) | payer OTHER, SELFPAY ==
--- NOTE | ~2025-04-12 | XR_ITS ---
EXAMINATION: XR CHEST 2 VIEWS HISTORY: CP COMPARISON: Comparison is made with the prior examination dated 10/26/2024. FINDINGS: PA and lateral views of the chest are submitted. The lungs are expanded and clear. There is no pleural effusion, pneumothorax, or pulmonary vascular congestion. The heart is normal in size. The bones are intact. XR/XR chest 2V IMPRESSION: No acute cardiopulmonary abnormality. Electronically signed by: Shyam Lopez MD 04/12/2025 07:59 AM EDT
--- NOTE | 2025-04-12 06:04 | ECG_ITS ---
Test Reason : CP Blood Pressure : */* mmHG Vent. Rate : 55 BPM Atrial Rate : 55 BPM P-R Int : 148 ms QRS Dur : 82 ms QT Int : 430 ms P-R-T Axes : 46 28 15 degrees QTcB Int : 411 ms Sinus bradycardia Otherwise normal ECG When compared with ECG of 26-Oct-2024 03:31, No significant change was found Referred By: Generic ED Physician Electronically Signed By: MINI HERNANDEZ
[2025-04-12 06:14] VITALS: BP 137/94; PULSE 57; RESP 16; TEMP 36.1; O2SAT 98; BMI 28.1
[2025-04-12 06:18] LABS: MANUAL DIFF FLAG NO
[2025-04-12 06:20] LABS: Hematocrit 37.8 % (42.0-52.0); Hemoglobin 13.6 g/dl (14.0-18.0); Imm Gran Abs Auto 0.01 X10*3/uL (0.00-0.03); Imm Gran Pct Auto 0.2 % (0.0-0.4); Lymphocytes Absolute Auto 2.8 X10*3/uL (1.2-4.9); Mean Corpuscular HGB Conc 36.0 g/dl (31.0-36.0); Mean Corpuscular Hemoglobin 29.3 pg (27.0-33.0); Mean Corpuscular Volume 81.5 fL (80.0-98.0); NRBC Abs Auto 0.000 X10*3/uL (0.0-0.012); NRBC Pct Auto 0.0 /100WBC (0.0-0.2); Platelet Count 188 X10*3/uL (160-400); Red Blood Count 4.64 X10*6/uL (4.60-5.80); White Blood Count 5.7 X10*3/uL (4.8-10.8)
--- OUTSIDE RECORDS SUMMARY | 2025-04-12 06:29 | XMS_ITS | Encounter Summary ---
Author Organization [employer] Address [address] [place] [address] Care Team Providers Care Culinary Director Name Role Phone Rik Bearden MD Primary Care Provide r Reason for Visit * Reason Comments Med Change Request Encounter Details Date Type Department Care Team ([facility] Contact Info) Description 04/09/2025 Refill [facility] [address] [place] [address] Rik Bearden MD [address] [place] [address] Social History Tobacco Use Types Packs/Day Years [...] Description 04/20/2025 9:45 AM EDT Clinical Support [facility] [address] [place] [phone] Nicole Rubio RN 05/24/2025 2:00 PM EDT Office Visit [facility] [address] [place] [phone] Rik Bearden MD [address] [place] [address] documented as of this encounter Goals Goal Patient Goal Type Associated Problems Recent Progress Patient-Stated? Author Decrease the frequency of unwanted emotions so that daily functioning is improved General On track( 025 1:37 PM EDT) No Nicole Rubio RN documented as of this encounter Visit Diagnoses Not on filedocumented in this encounter Additional Health Concerns Assessment Noted Time PHQ-9 Depression Total Score: 14 025 12:55 PM EDT documented as of this encounter Care Teams Culinary Director Relationship Specialty Start Date End Date Rik Bearden MD [address] [place] [phone] PCP - General Internal Medicine 06/18/15 documented as of this encounter
--- OUTSIDE RECORDS SUMMARY | 2025-04-12 06:29 | XMS_ITS | Clinical Summary ---
Author Organization [facility] [place] [address] Care Team Providers Care Sanitation Worker [employer] Machinery Name Role Phone Unavailable Primary Care Provider [...] series) 1999 Cholesterol Screening (Lipid Panel) 08/09/2022 HIV Screening 08/09/2022 Hepatitis C Screening 08/09/2022 Social Influencers of Health Screening 08/09/2022 COVID-19 Vaccine ( - 2023-2 5 season) 2024 Depression Screening 09/06/2024 Influenza Vaccine (#1) 2025 HIB Vaccines Aged [...]
[2025-04-12 06:42] LABS: Anion Gap 11 (12-20); Blood Urea Nitrogen 10 mg/dL (9-16); Calcium 8.8 mg/dL (8.4-10.2); Carbon Dioxide 28 mmol/L (22-29); Chloride 108 mmol/L (96-108); Creatinine Clr Calc Pharmacy 85.4; Estimated Glomerular Filt Rate > 60; Potassium 3.7 mmol/L (3.3-5.1); Sodium 143 mmol/L (135-145)
[2025-04-12 06:50] LABS: Troponin-I High Sensitivity 16.6 ng/L (<3.5-35.0)
--- NOTE | 2025-04-12 08:08 | ED_ITS ---
HPI - Chest Pain General Chief Complaint: Chest Pain Stated Complaint: CP + numbness left side top to bottom Time Seen by Provider: 04/12/25 08:05 Source: patient Mode of arrival: ambulatory Limitations: no limitations History of Present Illness ED Provider: Farhana Monteiro PA-C HPI narrative: Patient is a 44 year old assigned male at with a history of cervical radiculopathy, opiate abuse now on suboxone, and DELFINO presenting to the emergency department today with left sided chest pain, neck pain, and shoulder pain. Patient states that over the last 2-3 days he has had worsening left sided neck pain that radiates down into his left chest and shoulder. Patient states that this is intermittent over years but the last 3 days have been worse. Patient states that he has seen a environmental air specialist but doesn't follow up with them anymore and never took the medication they gave him. Patient states that he has a lot of life stressors happening. Patient denies any dizziness, lightheadedness, abdominal pain, nausea, vomiting, fever, chills, blurry vision, double vision, loss of vision, back pain, night sweats, pain with urination, increased urinary frequency, increased urinary urgency, blood in his urine or stool, syncope or a near syncopal episode, recent trauma or falls, bowel incontinence, bladder incontinence, or any other complaints at this time. Related Data Home Medications ?Medication ?Instructions ?Recorded ?Confirmed bupropion HCl 150 mg 24 hr tablet, 150 mg PO QAM 06/0401/08/25 extended release mirtazapine 15 mg tablet 15 mg PO BEDTIME 03/10/23 duloxetine 60 mg capsule,delayed 60 mg PO DAILY 01/08/25 release hydroxyzine HCl 25 mg tablet 25 mg PO BID 05/30/2401/28 sertraline 25 mg tablet 25 mg PO DAILY 05/30/2401/28 buprenorphine 4 mg-naloxone 1 mg 1 film sublingual TERESA LY 01/01/25 01/08/25 sublingual film Previous Rx's ?Medication ?Instructions ?Recorded acetaminophen 500 mg tablet 500 mg PO Q6H PRN fever or pain 03/08/23 (Tylenol Extra Strength) #14 tabs calcium polycarbophil 625 mg 1,250 mg (2 x 625 mg) PO DAILY 30 07/14/23 tablet (Fiber Laxative (calcium days #60 tabs polycarbophil)) lactulose 20 gram/30 mL oral 20 g (30 mL) PO DAILY PRN 08/14/23 solution constipation #1,200 mL gabapentin 100 mg capsule 200 mg (2 x 100 mg) PO BEDTI ME 30 01/10/24 days #60 caps mesalamine 0.375 gram 1.5 g (4 x 0.375 gram) PO DA MONTY 04/17/24 capsule,extended release 24 hr #360 caps docusate sodium 100 mg capsule 100 mg PO BID #90 caps 07/07/24 (Colace) fluticasone fur. 200 mcg-umeclid 1 inh inhalation PHILLIP Y 30 days #60 10/13/24 62.5 mcg-vilant 25 mcg ea inhalat.powder (Trelegy Ellipta) sucralfate 1 gram tablet 1 g PO BEDTIME #90 tabs 03/0 11/28 polyethylene glycol 3350 17 17 g PO DAILY constipation #119 12/10/24 gram/dose oral powder (Miralax) grams esomeprazole magnesium 40 mg 40 mg PO DAILY #90 caps 0 01/01/25 capsule,delayed release levofloxacin 750 mg tablet 750 mg PO DAILY #14 tabs cyclobenzaprine 5 mg tablet 5 mg PO TID PRN muscle spa sm 7 04/12/25 days #21 tabs prednisone 20 mg tablet 20 mg PO DAILY 7 days #7 tab s 04/12/25 Allergies Allergy/AdvReac Type Severity Reaction Status Date / Time shellfish derived Allergy Intermediate Rash Verified 04/12/25 06:16 Review of Systems 2 Constitutional: Constitutional: Reports no additional constitutional complaints, Denies chills, Denies fever(s) and Denies night sweats Eyes: Eyes: Reports no additional eye complaints, Denies blurry vision, Denies change in vision, Denies diplopia, Denies eye discharge, Denies loss of vision and Denies eye pain ENT: Denies dizziness and Reports neck pain Cardiovascular: Cardiovascular: Reports no additional cardiovascular complaints, Reports chest pain (left sided - radiates down from neck), Denies lightheadedness, Denies Loss of Consciousness and Reports dyspnea Respiratory: Respiratory: Reports no additional respiratory complaints and Reports dyspnea Gastrointestinal: Gastrointestinal: Reports no additional gastrointestinal complaints, Denies abdominal pain, Denies melena, Denies hematochezia, Denies change in bowel habits and Denies change in stool character Genitourinary: Genitourinary: Reports no additional male genitourinary complaints, Denies hematuria, Denies oliguria, Denies difficulty urinating, Denies dysuria, Denies urinary frequency, Denies urinary hesitancy, Denies urinary incontinence and Denies urinary urgency Musculoskeletal: Musculoskeletal: Reports no additional musculoskeletal complaints, Reports neck pain, Reports numbness (left arm) and Reports tingling (left arm) Neurologic: Denies dizziness, Denies loss of vision, Reports numbness (left arm) and Reports tingling (left arm) Psychiatric: Psychiatric: Reports no additional psychiatric complaints Endocrine: Endocrine: Reports no additional endocrine complaints Hematologic/Lymphatic: Hematologic/Lymphatic: Reports no additional hematologic/lymphatic complaints Allergic/Immunologic: Allergic/Immunologic: Reports no additional allergic/immunologic complaints [facility] Past Medical History Attestation statement: The following information was validated with the patient. 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 Mother No problems noted. Paternal Aunt Lung cancer Social History Social History Alcohol intake: never Patient Tobacco Use Status: Former Tobacco user Tobacco use type: Cigarette Years Smoked: 23 Years Smoked in Last 30 Days: No e-Cigarette/Vaping Use: Currently Using Use of substances other than those prescribed or required for medical reasons: No Advance Directives: No Advance Directives Information Provided: Yes Do you have a plan to hurt others: No Plan Current occupational status: disabled Physical Exam 2 Vital Signs: Vital Signs: Last Vital Signs Temp 97.7 F 04/12/25 09:10 Pulse 55 04/12/25 09:10 Resp 20 04/12/25 09:10 BP 124/91 H 04/12/25 09:10 Pulse Ox 97 04/12/25 09:10 O2 Del Method Room Air 04/12/25 09:10 BMI result Body Mass Index 28.1 Const: General: cooperative, no acute distress, alert and awake Nutritional Appearance: well nourished Orientation/consciousness: patient oriented x3 HEENT: Head: Yes normal to inspection and Yes atraumatic Ears: hearing grossly normal bilaterally and external ears normal General nose exam: Normal external nose present, no nasal discharge noted and no epistaxis Face and sinus: Yes normal facial exam, No abrasion and No laceration Mouth: Normal oral and palatal mucosa present, no drooling and no muffled voice Eyes: General: appearance normal, both eyes and all related structures P eriorbital: periorbital findings normal Eyelids: Yes eyelids normal C onjunctivae: conjunctivae normal Pupils: Equal, round and reactive pupils present EOM: EOMs intact bilaterally Neck: Neck: Yes normal visual inspection and Yes full ROM Resp: Effort & Inspection: normal respiratory effort and able to speak in complete sentences Auscultation: clear to auscultation bilaterally Cardio: Rate: regular rate Rhythm: regular rhythm Neuro: General: patient oriented x3, moves all extremities and CN's II-XI intact bilaterally Cranial nerves: Yes Equal, round and reactive pupils present Cognition (Neuro): normal cognition Extrem: General: Yes normal to inspection, Yes full ROM and Yes capillary refill normal Psych: Appearance: grossly normal Mental Status: mental status grossly normal Affect: normal affect Attitude: cooperative Thought process: N ormal thought process present Thought content: Normal thought content present Insight: Good insight present (Psych) Medications Administered Discontinued Medications Generic Name Dose Route Start Last Admin Trade Name Freq PRN Reason Stop Dose Admin Cyclobenzaprine HCl 5 mg 04/12/25 08:58 04/12/25 09:07 Cyclobenzaprine Hcl 5 Mg Tablet PO 04/12/25 08:59 5 mg ONCE ONE Administration Ketorolac Tromethamine 15 mg 04/12/25 08:58 04/12/25 09:07 Ketorolac Tromethamine 15 Mg/Ml Vial IM 04/12/25 08:59 15 mg ONCE ONE Administration Medical Decision Making Medical Decision Making MDM Narrative: Patient is a 44 year old assigned male at with a history of cervical radiculopathy, opiate abuse now on suboxone, and DELFINO presenting to the emergency department today with left sided chest pain, neck pain, and shoulder pain. Patient's physical exam was unremarkable. Patient's blood work was unremarkable. Patient's urine showed no acute process. Patient's EKG was unremarkable. Patient's chest x-ray showed no acute process. I explained my physical exam findings as well as all test results to the patient. I answered all questions asked by the patient. I stressed the importance of the patient taking his medication as directed (either prescribed or as the over the counter packaging recommends). I stressed the importance of the patient following up with his environmental air specialist and a primary care provider. I stressed the importance of the patient returning to the emergency department immediately if his symptoms were to worsen or if he were to develop any dizziness, shortness of breath, difficulty breathing, chest pain, blurry vision, loss of vision, nausea, vomiting, abdominal pain, fever, chills, back pain, or any other complaints. Patient verbalized agreement and understanding with this treatment plan and discharge. Differential Diagnosis Differential Diagnoses: The differential diagnosis associated with the presentation includes Cervical radiculopathy Chest pain Atypical chest pain NSTEMI STEMI Admission/Observation Consideration of admission/observation: Escalation of care including admission/observation considered Patient would have been admitted to the hospital had his work up had any findings where hospital admission was appropriate and his clinical presentation warranted hospital admission. Lab Data [facility] Lab Attestation statement: I reviewed the patient's lab results. My interpretation of these results are in the [facility] Rationale portion of this note. 04/12/25 06:13 04/12/25 06:13 Labs: Lab Results 04/12/25 04/12/25 Range/Units 06:13 08:17 WBC 5.7 (4.8-10.8) X10*3/uL RBC 4.64 (4.60-5.80) X10*6/uL Hgb 13.6 L (14.0-18.0) g/dl Hct 37.8 L (42.0-52.0) % MCV 81.5 (80.0-98.0) fL MCH 29.3 (27.0-33.0) pg MCHC 36.0 (31.0-36.0) g/dl RDW 12.2 (11.0-16.0) % Plt Count 188 (160-400) X10*3/uL MPV 9.2 L (9.4-12.4) fL Immature Gran % (Auto) 0.2 (0.0-0.4) % Neut % (Auto) 38.1 L (45-73) % Lymph % (Auto) 49.0 H (20-40) % Barry % (Auto) 7.3 (2-11) % Eos % (Auto) 4.0 (0-4) % Baso % (Auto) 1.4 (0-2) % Lymph # (Auto) 2.8 (1.2-4.9) X10*3/uL Barry # (Auto) 0.4 (0.1-1.2) X10*3/uL Eos # (Auto) 0.2 (0.0-0.4) X10*3/uL Baso # (Auto) 0.1 (0.0-0.2) X10*3/uL Abs Immat Gran (auto) 0.01 (0.00-0.03) X10*3/uL Absolute Neuts (auto) 2.2 (2.0-8.3) x10*3/uL Absolute Nucleated RBC 0.000 (0.0-0.012) X10*3/uL Nucleated RBC % (auto) 0.0 (0.0-0.2) /100WBC Sodium 143 (135-145) mmol/L Potassium 3.7 (3.3-5.1) mmol/L Chloride 108 (96-108) mmol/L Carbon Dioxide 28 (22-29) mmol/L Anion Gap 11 L (12-20) BUN 10 (9-16) mg/dL Creatinine 1.09 (0.5-1.4) mg/dL Estim Creat Clear Calc 85.4 Estimated GFR > 60 Random Glucose 101 (60-115) mg/dL Calcium 8.8 (8.4-10.2) mg/dL Troponin I High Sens 16.6 D 16.7 (<3.5-35.0) ng/L Independent Interpretation I performed an independent interpretation of an: EKG and Plain X-Ray Interpretation: My interpretation is in agreement with the radiologist's impression of this imaging study. L EXAMINATION: XR CHEST 2 VIEWS HISTORY: CP COMPARISON: Comparison is made with the prior examination dated 10/26/2024. FINDINGS: PA and lateral views of the chest are submitted. The lungs are expanded and clear. There is no pleural effusion, pneumothorax, or pulmonary vascular congestion. The heart is normal in size. The bones are intact. XR/XR chest 2V IMPRESSION: No acute cardiopulmonary abnormality. Electronically signed by: Shyam Lopez MD 04/12/2025 07:59 AM EDT RP Dictated By: Shyam Lopez MD Signed By: Electronically signed by Shyam Lopez MD 04/12/25 0759 I independently interpreted this EKG and am in agreement with the below findings: Vent. Rate: 55 BPM Atrial Rate: 55 BPM P-R Int: 148 ms QRS Dur: 82 ms QT Int: 430 ms P-R-T Axes: 46 28 15 degrees QTcB Int: 411 ms Sinus bradycardia When compared with ECG of 26-Oct-2024 03:31, No significant change was found DD/ [id number] Radiology Impression Discussion of test interpretation with radiology: I have reviewed the radiologist's reading. Prescription Management I considered prescription management with: Pain Medication (patient prescribed pain medication) Discharge Plan Discharge Clinical Impression: Cervical radiculopathy Patient Disposition: Home, Self-Care Instructions: Cervical Radiculopathy (ED) Additional Instructions: Follow up with your primary care provider and a spinal specialist. Return to the emergency department immediately if your symptoms worsen or if you develop any numbness, tingling, dizziness, shortness of breath, difficulty breathing, chest pain, blurry vision, loss of vision, nausea, vomiting, abdominal pain, fever, chills, back pain, or any other complaints. Please see the information below about our Patient Portal. If you are not yet enrolled in the [facility] Patient Portal, you will receive an enrollment email invitation following your visit to any [facility] setting. You may also self-enroll in the Patient Portal by visiting our website: [email or web address] The following information is required to access the Patient Portal: - Your [facility] [place] Record Number - Your personal home email address (must match what is in your electronic medical record, Registration staff can assist with this) - Name - Date of Capabilities of the Patient Portal: - Message some providers - View upcoming appointments - Access your health summary, medical history, and visit history - View current conditions and allergies - View procedure and lab results - View your medications, including guidelines, side effects, and precautions - Complete pre-appointment questionnaires requested by your provider - Ready summary reports of your office visits and procedures To access the Patient Portal Mobile [employer], follow these directions: - Search [employer]ium in the Lizbet Store or Google Play Store - Download the Lizbet - Search for [facility] - Enter your login/password Prescriptions: New cyclobenzaprine 5 mg tablet 5 mg PO TID PRN (Reason: muscle spasm) 7 Days Qty: 21 0RF prednisone 20 mg tablet 20 mg PO DAILY 7 Days Qty: 7 0RF No Action mesalamine 0.375 gram capsule,extended release 24hr 1.5 g PO DAILY Qty: 360 0RF sucralfate 1 gram tablet 1 g PO BEDTIME Qty: 90 0RF lactulose 20 gram/30 mL solution 20 g PO DAILY PRN (Reason: constipation) Qty: 1200 0RF polyethylene glycol 3350 [Miralax] 17 gram/dose powder 17 g PO DAILY Qty: 119 0RF acetaminophen [Tylenol Extra Strength] 500 mg tablet 500 mg PO Q6H PRN (Reason: fever or pain) Qty: 14 0RF levofloxacin 750 mg tablet 750 mg PO DAILY Qty: 14 0RF bupropion HCl 150 mg tablet extended release 24 hr 150 mg PO QAM buprenorphine-naloxone 4-1 mg film 1 film sublingual DAILY esomeprazole magnesium 40 mg capsule,delayed release(DR/EC) 40 mg PO DAILY Qty: 90 2RF Trelegy Ellipta 200-62.5-25 mcg blister with device 1 inh inhalation DAILY 30 Days Qty: 60 12RF mirtazapine 15 mg tablet 15 mg PO BEDTIME calcium polycarbophil [Fiber Laxative (ca polycarbo)] 625 mg tablet 1,250 mg PO DAILY 30 Days Qty: 60 3RF duloxetine 60 mg capsule,delayed release(DR/EC) 60 mg PO DAILY gabapentin 100 mg capsule 200 mg PO BEDTIME 30 Days Qty: 60 6RF sertraline 25 mg tablet 25 mg PO DAILY hydroxyzine HCl 25 mg tablet 25 mg PO BID docusate sodium [Colace] 100 mg capsule 100 mg PO BID Qty: 90 2RF Referrals: [facility] [Provider Group, Neurosurgery] Referral Note: Call to establish and follow up with a environmental air specialist. Rik Flaherty MD [Primary Care Provider, Medical] Interventions: ED Discharge Assessment Last Done: 04/12/25 09:10 Discharge Date/Time: 04/12/25 09:10 Print Language: Gibraltarian
[2025-04-12 08:48] LABS: Troponin-I High Sensitivity 16.7 ng/L (<3.5-35.0)
[2025-04-12 09:01] VITALS: BP 124/91; PULSE 55; RESP 20; TEMP 36.5; O2SAT 97
[2025-04-12 09:10] VITALS: BP 124/91; PULSE 55; RESP 20; TEMP 36.5; O2SAT 97
== END 2025-04-12 09:10 | disposition home or self-care (01) ==
PROVIDERS: Physician Assistant Medical; Emergency Provider Emergency Medicine; PCP Internal Medicine
DX: R07.89 Other chest pain (principal); M54.12 Radiculopathy, cervical region
CPT/HCPCS: 36415; 71046; 80048; 84484; 85025; 93005; 96372; 99284; 99285; J1885

== ENCOUNTER → 2025-04-12 06:04 | Outpatient (BNV) | payer OTHER, SELFPAY | PROVIDERS: PCP Internal Medicine; Visit Provider Radiology Diagnostic Radiology | DX: R07.89 Other chest pain (principal) | CPT/HCPCS: 71046 ==

== ENCOUNTER → 2025-04-12 06:04 | Outpatient (BNV) | payer OTHER, SELFPAY | PROVIDERS: Emergency Provider Emergency Medicine; PCP Internal Medicine; Visit Provider Internal Medicine | DX: R00.1 Bradycardia, unspecified (principal) | CPT/HCPCS: 93010 ==

== ENCOUNTER 2025-04-21 17:13 | Emergency (ER) | payer OTHER, SELFPAY ==
--- NOTE | 2025-04-21 17:14 | ECG_ITS ---
Test Reason : CP Blood Pressure : */* mmHG Vent. Rate : 57 BPM Atrial Rate : 57 BPM P-R Int : 144 ms QRS Dur : 84 ms QT Int : 402 ms P-R-T Axes : 60 45 22 degrees QTcB Int : 391 ms Sinus bradycardia Otherwise normal ECG When compared with ECG of 12-Apr-2025 06:04, No significant change was found Referred By: Generic ED Physician Electronically Signed By: Aries Johnson
[2025-04-21 17:37] VITALS: BP 135/78; PULSE 61; RESP 16; TEMP 36.4; O2SAT 97; BMI 28.2
--- NOTE | 2025-04-21 17:41 | ED_ITS ---
HPI - Chest Pain General Chief Complaint: Chest Pain Stated Complaint: chest pain Time Seen by Provider: 04/21/25 20:52 Source: patient Mode of arrival: ambulatory Limitations: no limitations History of Present Illness ED Provider: Trenton MURPHY HPI narrative: The patient is a 44-year-old male presenting to the ED for evaluation of chest pain he describes as intermittent fluttering palpitations with occasional tightness which occurs mostly at night when he is lying down and not active. The patient reports these symptoms have been occurring for a very long time, is unable to describe a change in his symptoms which prompted ED visit today. The patient reports he has been worked up for this by his PCP and a hot plate plywood press laborer including an echocardiogram, holter monitor, and stress test which showed no acute findings. The patient has a history of fibromyalgia,, gastritis, and anxiety. The patient states he is not compliant with his prescribed medications as he has a fear of taking too many medications. The patient reports he is compliant with Entyvio injections every other month for Crohn's, and Suboxone for a history of previously abusing Ultram. The patient reports he has chronic recurring symptoms which cause him a great deal of stress, and makes him fearful of going to sleep at night. Today the patient denies any associated fever/chills, nausea, vomiting, diaphoresis, back pain, abdominal pain, recent sick contacts, or recent trauma. Related Data Home Medications ?Medication ?Instructions ?Recorded ?Confirmed bupropion HCl 150 mg 24 hr tablet, 150 mg PO QAM 06/0401/08/25 extended release mirtazapine 15 mg tablet 15 mg PO BEDTIME 03/10/23 duloxetine 60 mg capsule,delayed 60 mg PO DAILY 01/08/25 release hydroxyzine HCl 25 mg tablet 25 mg PO BID 05/30/2401/28 sertraline 25 mg tablet 25 mg PO DAILY 05/30/2401/28 buprenorphine 4 mg-naloxone 1 mg 1 film sublingual TERESA LY 01/01/25 01/08/25 sublingual film Previous Rx's ?Medication ?Instructions ?Recorded acetaminophen 500 mg tablet 500 mg PO Q6H PRN fever or pain 03/08/23 (Tylenol Extra Strength) #14 tabs calcium polycarbophil 625 mg 1,250 mg (2 x 625 mg) PO DAILY 30 07/14/23 tablet (Fiber Laxative (calcium days #60 tabs polycarbophil)) lactulose 20 gram/30 mL oral 20 g (30 mL) PO DAILY PRN 08/14/23 solution constipation #1,200 mL gabapentin 100 mg capsule 200 mg (2 x 100 mg) PO BEDTI ME 30 01/10/24 days #60 caps mesalamine 0.375 gram 1.5 g (4 x 0.375 gram) PO DA MONTY 04/17/24 capsule,extended release 24 hr #360 caps docusate sodium 100 mg capsule 100 mg PO BID #90 caps 07/07/24 (Colace) fluticasone fur. 200 mcg-umeclid 1 inh inhalation PHILLIP Y 30 days #60 10/13/24 62.5 mcg-vilant 25 mcg ea inhalat.powder (Trelegy Ellipta) sucralfate 1 gram tablet 1 g PO BEDTIME #90 tabs 03/0 11/28 polyethylene glycol 3350 17 17 g PO DAILY constipation #119 12/10/24 gram/dose oral powder (Miralax) grams esomeprazole magnesium 40 mg 40 mg PO DAILY #90 caps 0 01/01/25 capsule,delayed release levofloxacin 750 mg tablet 750 mg PO DAILY #14 tabs cyclobenzaprine 5 mg tablet 5 mg PO TID PRN muscle spa sm 7 04/12/25 days #21 tabs prednisone 20 mg tablet 20 mg PO DAILY 7 days #7 tab s 04/12/25 Allergies Allergy/AdvReac Type Severity Reaction Status Date / Time shellfish derived Allergy Intermediate Rash Verified 04/21/25 17:39 Review of Systems 2 Review of Systems: Yes all other systems are reviewed and are negative PMF Past Medical History Medical History Hypogonadism, testicular Hilar lymphadenopathy Fibromyalgia GERD (gastroesophageal reflux disease) Scrotal pain Rhinosinusitis 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 Mother No problems noted. Paternal Aunt Lung cancer Social History Social History Alcohol intake: never Patient Tobacco Use Status: Former Tobacco user Tobacco use type: Cigarette Years Smoked: 23 Years Smoked in Last 30 Days: Yes e-Cigarette/Vaping Use: Currently Using Use of substances other than those prescribed or required for medical reasons: No Advance Directives: No Advance Directives Information Provided: No Current occupational status: disabled Physical Exam 2 Vital Signs: Vital Signs: Last Vital Signs Temp 97.7 F 04/21/25 20:39 Pulse 58 04/21/25 20:39 Resp 18 04/21/25 20:39 BP 148/81 H 04/21/25 20:39 Pulse Ox 97 04/21/25 20:39 O2 Del Method Room Air 04/21/25 20:39 BMI result Body Mass Index 28.2 CONSTITUTIONAL: The patient appears non-toxic, well nourished and in no acute distress. Vital signs as documented. HEAD: Atraumatic, normocephalic. EYES: EOMs grossly intact, pupils equal, conjunctiva clear, no exudate. ENT: Nares patent, no discharge. Airway patent, no audible stridor, visible mucosa is pink and moist without noted lesions. NECK: Trachea is midline, no obvious masses or gross abnormalities. CHEST: Symmetric movement, normal appearance. LUNGS: LS present and CTAB, no w/r/r. Non-labored work of breathing. CARDIAC: Regular Rhythm, S1/S2 appreciated, no murmurs, rubs or gallops. ABDOMEN: Abdomen soft and non-tender x4 quadrants, no palpable masses or organomegaly. : Deferred. EXTREMITIES: Normal tone, moves all extremities spontaneously without reported pain. No obvious acute injury or deformity noted. No pedal edema. NEURO: Alert and oriented x3, CN II-XII appear grossly intact. Cerebellar Functioning grossly intact. No obvious sensory or motor deficits. Speech clear and appropriate. PSYCH: normal affect, appropriate eye contact, fluid speech, with appropriate response to questioning. No reported suicidality or homicidality. SKIN: Warm, dry, color appropriate, normal turgor. No rashes noted. Course Course Course Narrative: Ainsleysamantha Wilson POTTERY KILN BUILDER 8/16 1742 This is a rapid medical exam. Defer additional HPI, ROS and PE to primary provider. 44-year-old male with a history of Crohn's disease, cervical radiculopathy, opiate abuse now on suboxone, and DELFINO here with complaints of chest pain intermittent with radiation to the left side of the neck and down the left upper extremity. Patient reports it has history of anxiety fibromyalgia and feels that this may be related but is unsure. Reports he was seen here recently for similar symptoms with negative workup. Will obtain labs, EKG VSS Medical Decision Making Medical Decision Making [facility] Narrative: 9:20 PM 04/21/2025 (Drea MURPHY): The patient is a 44-year-old male presenting to the ED for evaluation of chronic recurring fluttering palpitations which occur mostly at night when he is not distracted by other daily activities. The patient has been seen by his PCP, hot plate plywood press laborer, and this facility multiple times for these complaints, patient has had multiple negative workup including echocardiogram and stress test. The patient's symptoms are not changed today however caused him worsening anxiety/concern prompting ED evaluation. The patient in the ED is well-appearing, no evidence of acute distress. Patient's exam is benign. Patient is normotensive, not tachycardic, no hypoxia or fever. Laboratory evaluation reveals no leukocytosis, anemia, electrolyte abnormality, JAMES, or significant LFT abnormality. The patient's troponin is negative x2. EKG is nonischemic. At this time patient's presentation is consistent with noncardiac palpitations, possibly secondary to anxiety. Patient will be discharged to follow up with PCP for re-evaluation. Patient has been educated on the importance of taking all his prescribed medications as they are prescribed, as he can not expect symptoms to improve without following the recommended care plans. Admission/Observation Consideration of admission/observation: Escalation of care including admission/observation considered Lab Data [facility] Lab Attestation statement: I reviewed the patient's lab results. 04/21/25 18:04 04/21/25 18:04 Labs: Lab Results 04/21/25 04/21/25 Range/Units 18:04 20:30 WBC 5.9 (4.8-10.8) X10*3/uL RBC 4.87 (4.60-5.80) X10*6/uL Hgb 14.2 (14.0-18.0) g/dl Hct 40.2 L (42.0-52.0) % MCV 82.5 (80.0-98.0) fL MCH 29.2 (27.0-33.0) pg MCHC 35.3 (31.0-36.0) g/dl RDW 12.2 (11.0-16.0) % Plt Count 209 (160-400) X10*3/uL MPV 9.6 (9.4-12.4) fL Immature Gran % (Auto) 0.5 H (0.0-0.4) % Neut % (Auto) 56.0 (45-73) % Lymph % (Auto) 31.6 (20-40) % [place] % (Auto) 8.7 (2-11) % Eos % (Auto) 2.2 (0-4) % Baso % (Auto) 1.0 (0-2) % Lymph # (Auto) 1.9 (1.2-4.9) X10*3/uL [place] # (Auto) 0.5 (0.1-1.2) X10*3/uL Eos # (Auto) 0.1 (0.0-0.4) X10*3/uL Baso # (Auto) 0.1 (0.0-0.2) X10*3/uL Abs Immat Gran (auto) 0.03 (0.00-0.03) X10*3/uL Absolute Neuts (auto) 3.3 (2.0-8.3) x10*3/uL Absolute Nucleated RBC 0.000 (0.0-0.012) X10*3/uL Nucleated RBC % (auto) 0.0 (0.0-0.2) /100WBC Sodium 142 (135-145) mmol/L Potassium 5.0 D (3.3-5.1) mmol/L Chloride 106 (96-108) mmol/L Carbon Dioxide 27 (22-29) mmol/L Anion Gap 14 (12-20) BUN 12 (9-16) mg/dL Creatinine 0.95 (0.5-1.4) mg/dL Estim Creat Clear Calc 98.2 Estimated GFR > 60 Random Glucose 96 (60-115) mg/dL Calcium 9.2 (8.4-10.2) mg/dL Total Bilirubin 0.4 (0.0-1.0) mg/dL Direct Bilirubin 0.1 (0.0-0.5) mg/dL AST 78 H (5-37) U/L ALT 141 H (0-40) U/L Alkaline Phosphatase 66 (39-117) U/L Troponin I High Sens 16.7 18.8 (<3.5-35.0) ng/L Total Protein 7.5 (6.5-8.0) g/dL Albumin 4.3 (3.5-5.0) g/dL Independent Interpretation I performed an independent interpretation of an: EKG (EKG shows sinus rhythm with a rate of 57, no evidence of acute ischemia, no ST elevation, no ectopy. QTC 391. Compared to previous on 04/12/2025 there are no acute morphology changes) External Record Review External record reviewed: Outpatient record Discharge Plan Discharge Clinical Impression: Intermittent palpitations, Anxiety, Non-cardiac chest pain Patient Disposition: Home, Self-Care Instructions: Heart Palpitations (ED), Noncardiac Chest Pain (ED), Panic Disorder (ED), Premature Ventricular Contractions (ED) Additional Instructions: Thank you for choosing [facility]'s Emergency Department for your care today. Your laboratory evaluation, EKG, cardiac enzymes, and exam today are all reassuring. At this time there is no indication for admission to the hospital or continued ED observation, and it is safe to discharge you home. There was no evidence of any acute cardiac, infectious, metabolic, or other dangerous cause for your ongoing heart palpitations and chest tightness. Your symptoms may be related to anxiety, particularly your worry/stress regarding your health. It is extremely important that you follow up with your primary care provider and hot plate plywood press laborer for continued monitoring and investigation into the source of your symptoms. Please be sure to take all medications prescribed by your primary care provider and specialist as your symptoms are not likely to improve if you do not follow the outlined care/treatment plans. If you do not have a primary care physician, please call the [facility] at [phone] to establish a new primary care physician. While waiting to establish your new primary care physician, you can call our Walk-in [facility] at [phone] for non-emergency needs. Please return to the emergency department if you develop a severe or sudden change in your symptoms, a fever over 100.4 that does not improve with Tylenol or Ibuprofen, recurrent vomiting, or any other new or worsening symptoms or concerns. Prescriptions: No Action mesalamine 0.375 gram capsule,extended release 24hr 1.5 g PO DAILY Qty: 360 0RF sucralfate 1 gram tablet 1 g PO BEDTIME Qty: 90 0RF lactulose 20 gram/30 mL solution 20 g PO DAILY PRN (Reason: constipation) Qty: 1200 0RF polyethylene glycol 3350 [Miralax] 17 gram/dose powder 17 g PO DAILY Qty: 119 0RF acetaminophen [Tylenol Extra Strength] 500 mg tablet 500 mg PO Q6H PRN (Reason: fever or pain) Qty: 14 0RF levofloxacin 750 mg tablet 750 mg PO DAILY Qty: 14 0RF cyclobenzaprine 5 mg tablet 5 mg PO TID PRN (Reason: muscle spasm) 7 Days Qty: 21 0RF prednisone 20 mg tablet 20 mg PO DAILY 7 Days Qty: 7 0RF bupropion HCl 150 mg tablet extended release 24 hr 150 mg PO QAM buprenorphine-naloxone 4-1 mg film 1 film sublingual DAILY esomeprazole magnesium 40 mg capsule,delayed release(DR/EC) 40 mg PO DAILY Qty: 90 2RF Trelegy Ellipta 200-62.5-25 mcg blister with device 1 inh inhalation DAILY 30 Days Qty: 60 12RF mirtazapine 15 mg tablet 15 mg PO BEDTIME calcium polycarbophil [Fiber Laxative (ca polycarbo)] 625 mg tablet 1,250 mg PO DAILY 30 Days Qty: 60 3RF duloxetine 60 mg capsule,delayed release(DR/EC) 60 mg PO DAILY gabapentin 100 mg capsule 200 mg PO BEDTIME 30 Days Qty: 60 6RF sertraline 25 mg tablet 25 mg PO DAILY hydroxyzine HCl 25 mg tablet 25 mg PO BID docusate sodium [Colace] 100 mg capsule 100 mg PO BID Qty: 90 2RF Print Language: Estonian
[2025-04-21 18:13] LABS: MANUAL DIFF FLAG NO
[2025-04-21 18:16] LABS: Hematocrit 40.2 % (42.0-52.0); Hemoglobin 14.2 g/dl (14.0-18.0); Imm Gran Abs Auto 0.03 X10*3/uL (0.00-0.03); Imm Gran Pct Auto 0.5 % (0.0-0.4); Lymphocytes Absolute Auto 1.9 X10*3/uL (1.2-4.9); Mean Corpuscular HGB Conc 35.3 g/dl (31.0-36.0); Mean Corpuscular Hemoglobin 29.2 pg (27.0-33.0); Mean Corpuscular Volume 82.5 fL (80.0-98.0); NRBC Abs Auto 0.000 X10*3/uL (0.0-0.012); NRBC Pct Auto 0.0 /100WBC (0.0-0.2); Platelet Count 209 X10*3/uL (160-400); Red Blood Count 4.87 X10*6/uL (4.60-5.80); White Blood Count 5.9 X10*3/uL (4.8-10.8)
[2025-04-21 18:31] LABS: Alanine Aminotransferase 141 U/L (0-40); Albumin Level 4.3 g/dL (3.5-5.0); Alkaline Phosphatase 66 U/L (39-117); Anion Gap 14 (12-20); Aspartate Amino Transferase 78 U/L (5-37); Blood Urea Nitrogen 12 mg/dL (9-16); Calcium 9.2 mg/dL (8.4-10.2); Carbon Dioxide 27 mmol/L (22-29); Chloride 106 mmol/L (96-108); Creatinine Clr Calc Pharmacy 98.2; Estimated Glomerular Filt Rate > 60; Potassium 5.0 mmol/L (3.3-5.1); Sodium 142 mmol/L (135-145); Total Protein 7.5 g/dL (6.5-8.0)
[2025-04-21 18:38] LABS: Troponin-I High Sensitivity 16.7 ng/L (<3.5-35.0)
[2025-04-21 20:39] VITALS: BP 148/81; PULSE 58; RESP 18; TEMP 36.5; O2SAT 97
--- NOTE | 2025-04-21 20:40 | PC.NURSE ---
pt a&ox4, respirations even and unlabored. pt reports onset of upper chest pain and nausea x3 days, reports was seen here previously for similar episode but does not remember what he was diagnosed with. pt reports chest pain increases with breathing and movement. vss.
[2025-04-21 21:00] LABS: Troponin-I High Sensitivity 18.8 ng/L (<3.5-35.0)
[2025-04-21 21:42] VITALS: BP 148/81; PULSE 58; RESP 18; TEMP 36.5; O2SAT 97
== END 2025-04-21 21:42 | disposition home or self-care (01) ==
PROVIDERS: Nurse Practitioner Family; Emergency Provider Emergency Medicine; PCP Internal Medicine
DX: R07.9 Chest pain, unspecified (principal); R00.2 Palpitations; F41.9 Anxiety disorder, unspecified; M79.7 Fibromyalgia; E29.1 Testicular hypofunction; K21.9 Gastro-esophageal reflux disease without esophagitis; F17.210 Nicotine dependence, cigarettes, uncomplicated
CPT/HCPCS: 36415; 80048; 80076; 84484; 85025; 93005; 99283; 99285

== ENCOUNTER → 2025-04-21 17:14 | Outpatient (BNV) | payer OTHER, SELFPAY | PROVIDERS: Emergency Provider Emergency Medicine; PCP Internal Medicine; Visit Provider Internal Medicine Cardiovascular Disease | DX: R00.1 Bradycardia, unspecified (principal) | CPT/HCPCS: 93010 ==

== ENCOUNTER 2025-06-28 16:17 | Emergency (ER) | payer OTHER, SELFPAY ==
--- NOTE | 2025-06-28 16:20 | ED.BACK ---
HPI - Back Pain/Injury General Chief Complaint: General Medical Stated Complaint: Low back pain Related Data Home Medications ?Medication ?Instructions ?Recorded ?Confirmed bupropion HCl 150 mg 24 hr tablet, 150 mg PO QAM 06/04/20 01/08/25 extended release mirtazapine 15 mg tablet 15 mg PO BEDTIME 03/10/23 01/08/25 duloxetine 60 mg capsule,delayed 60 mg PO DAILY 12/09/23 01/08/25 release hydroxyzine HCl 25 mg tablet 25 mg PO BID 05/30/24 01/08/25 sertraline 25 mg tablet 25 mg PO DAILY 05/30/24 01/08/25 buprenorphine 4 mg-naloxone 1 mg 1 film sublingual DAILY 01/01/25 01/08/25 sublingual film Previous Rx's ?Medication ?Instructions ?Recorded acetaminophen 500 mg tablet 500 mg PO Q6H PRN fever or pain 03/08/23 (Tylenol Extra Strength) #14 tabs calcium polycarbophil 625 mg 1,250 mg (2 x 625 mg) PO DAILY 30 07/14/23 tablet (Fiber Laxative (calcium days #60 tabs polycarbophil)) lactulose 20 gram/30 mL oral 20 g (30 mL) PO DAILY PRN 08/14/23 solution constipation #1,200 mL gabapentin 100 mg capsule 200 mg (2 x 100 mg) PO BEDTIME 30 01/10/24 days #60 caps mesalamine 0.375 gram 1.5 g (4 x 0.375 gram) PO DAILY 04/17/24 capsule,extended release 24 hr #360 caps docusate sodium 100 mg capsule 100 mg PO BID #90 caps 07/07/24 (Colace) fluticasone fur. 200 mcg-umeclid 1 inh inhalation DAILY 30 days #60 10/13/24 62.5 mcg-vilant 25 mcg ea inhalat.powder (Trelegy Ellipta) sucralfate 1 gram tablet 1 g PO BEDTIME #90 tabs 11/06/24 polyethylene glycol 3350 17 17 g PO DAILY constipation #119 12/10/24 gram/dose oral powder (Miralax) grams esomeprazole magnesium 40 mg 40 mg PO DAILY #90 caps 01/01/25 capsule,delayed release levofloxacin 750 mg tablet 750 mg PO DAILY #14 tabs 01/18/25 cyclobenzaprine 5 mg tablet 5 mg PO TID PRN muscle spasm 7 04/12/25 days #21 tabs prednisone 20 mg tablet 20 mg PO DAILY 7 days #7 tabs 04/12/25 Allergies Allergy/AdvReac Type Severity Reaction Status Date / Time shellfish derived Allergy Intermediate Rash Verified 06/28/25 16:23 [facility] Past Medical History Medical History Hypogonadism, testicular Hilar lymphadenopathy Fibromyalgia GERD (gastroesophageal reflux disease) Scrotal pain Rhinosinusitis 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 Mother No problems noted. Paternal Aunt Lung cancer Social History Social History Alcohol intake: never Patient Tobacco Use Status: Former Tobacco user Tobacco use type: Cigarette Years Smoked: 23 Years e-Cigarette/Vaping Use: Currently Using Current occupational status: disabled Physical Exam Vital Signs: Vital Signs: Last Vital Signs Temp 98.7 F 06/28/25 16:21 Pulse 69 06/28/25 16:21 Resp 16 06/28/25 16:21 BP 120/68 06/28/25 16:21 Pulse Ox 96 06/28/25 16:21 O2 Del Method Room Air 06/28/25 16:21 BMI result Body Mass Index 28.3 Course Course Course Narrative: This is an RME: Additional HPI, ROS, PE not included below will be deferred to primary provider. RME assessment and note performed by: Emely Petty PA-C This is a [id number]-male, with a hx of GERD, anxiety, and fibromyalgia, who presents to the ER with complaints of back pain x 1-2 months. Reports that he is also having abdominal pain. No constipation or diarrhea. No urinary symptoms. Plan: Labs, UA, further ER eval needed. >> patient is son is also being seen for another complaint, however son is going to be discharged. Patient does not want to stay for further workup. Patient is leaving without completing treatment as we wanted to perform labs as well as a urinalysis. Discharge Plan Discharge Clinical Impression: Back pain, Abdominal pain Patient Disposition: Left W/O Completing Treatment Prescriptions: No Action mesalamine 0.375 gram capsule,extended release 24hr 1.5 g PO DAILY Qty: 360 0RF sucralfate 1 gram tablet 1 g PO BEDTIME Qty: 90 0RF lactulose 20 gram/30 mL solution 20 g PO DAILY PRN (Reason: constipation) Qty: 1200 0RF polyethylene glycol 3350 [Miralax] 17 gram/dose powder 17 g PO DAILY Qty: 119 0RF acetaminophen [Tylenol Extra Strength] 500 mg tablet 500 mg PO Q6H PRN (Reason: fever or pain) Qty: 14 0RF levofloxacin 750 mg tablet 750 mg PO DAILY Qty: 14 0RF cyclobenzaprine 5 mg tablet 5 mg PO TID PRN (Reason: muscle spasm) 7 Days Qty: 21 0RF prednisone 20 mg tablet 20 mg PO DAILY 7 Days Qty: 7 0RF bupropion HCl 150 mg tablet extended release 24 hr 150 mg PO QAM buprenorphine-naloxone 4-1 mg film 1 film sublingual DAILY esomeprazole magnesium 40 mg capsule,delayed release(DR/EC) 40 mg PO DAILY Qty: 90 2RF Trelegy Ellipta 200-62.5-25 mcg blister with device 1 inh inhalation DAILY 30 Days Qty: 60 12RF mirtazapine 15 mg tablet 15 mg PO BEDTIME calcium polycarbophil [Fiber Laxative (ca polycarbo)] 625 mg tablet 1,250 mg PO DAILY 30 Days Qty: 60 3RF duloxetine 60 mg capsule,delayed release(DR/EC) 60 mg PO DAILY gabapentin 100 mg capsule 200 mg PO BEDTIME 30 Days Qty: 60 6RF sertraline 25 mg tablet 25 mg PO DAILY hydroxyzine HCl 25 mg tablet 25 mg PO BID docusate sodium [Colace] 100 mg capsule 100 mg PO BID Qty: 90 2RF
[2025-06-28 16:21] VITALS: BP 120/68; PULSE 69; RESP 16; TEMP 37.1; O2SAT 96; BMI 28.3
--- NOTE | 2025-06-28 16:49 | PC.NURSE ---
Pt being seen with his son who is being discharged from [facility], declines to stay for own medical exam and unable to d/c from triage. states he will f/u with PCP regarding complaints today.
--- OUTSIDE RECORDS SUMMARY | 2025-06-28 19:35 | XMS_ITS | Encounter Summary ---
Author Organization [employer] Address [address] [facility] [address] [place] [address] Care Team Providers Care Facility Maintenance Mechanic Name Role Phone Rik Bearden MD Primary Care Provide r Reason for Visit * Reason Comments Med Change Request Encounter Details Date Type Department Care Team ([facility] st Contact Info) Description 11/30/2024 Refill [facility] [address] [place] [address] Rik Bearden MD [address] [place] [address] Social History Tobacco Use Types Packs/Day Years [...] Care Team (Late st Contact Info) Description 08/10/2025 10:00 AM EST Clinical Support [facility] [address] [place] [address] Nicole Rubio RN documented as of this encounter Visit Diagnoses Not on filedocumented in this encounter Additional Health Concerns Assessment Noted Time PHQ-9 Depression Total Score: 14 024 1:11 PM EST documented as of this encounter Care Teams Facility Maintenance Mechanic Relationship Specialty Start Date End Date Rik Bearden MD [address] [place] [address] PCP - General Internal Medicine 06/18/15 documented as of this encounter
--- OUTSIDE RECORDS SUMMARY | 2025-06-28 19:35 | XMS_ITS | Encounter Summary ---
Author Organization [employer] Address [address] [facility] [address] [place] [address] Care Team Providers Care Body Shop Mechanic Name Role Phone Rik Bearden MD Primary Care Provide r Reason for Visit * Reason Comments Med Refill Encounter Details Date Type Department Care Team ([facility] st Contact Info) Description 06/14/2024 Refill [facility] [address] [place] [address] Merritt Germain MD [address] [place] [address] Uncomplicated opioid dependence (CMS/HCC) Social History Tobacco [...] Description 08/10/2025 10:00 AM EST Clinical Support [facility] [address] [place] [address] Nicole Rubio, JAMSHID documented as of this encounter Visit Diagnoses Diagnosis Uncomplicated opioid dependence (CMS/HCC) (HCC) documented in this encounter Additional Health Concerns Assessment Noted Time PHQ-9 Depression Total Score: 21 024 2:22 PM EDT documented as of this encounter Care Teams Body Shop Mechanic Relationship Specialty Start Date End Date Rik Bearden MD [address] [place] [address] PCP - General Internal Medicine 06/18/15 documented as of this encounter
--- OUTSIDE RECORDS SUMMARY | 2025-06-28 19:35 | XMS_ITS | Encounter Summary ---
Author Organization [employer] Address [address] [facility] [address] [place] [address] Care Team Providers Care Wedding Florist Name Role Phone Rik Bearden MD Primary Care Provide r Reason for Visit * Reason Onset Date Comments Nurse Triage 08/16/2023 Encounter Details Date Type Department Care Team ([facility] st Contact Info) Description 08/16/2023 Telephone [facility] [address] [place] [address] Rik Bearden MD [address] [place] [address] Nurse Triage Social History Tobacco Use Types [...] call Pt reports was just in ED [facility] 08/14/23. Pt reported dx of constipation. Pt has had BM since then but, Pt reports pain in area between anus and testicles, burning pain . Pain comes and goes but, is getting stronger each time it comes. Pt reports this pain is increasing in occurrence. Pt denies urinary symptoms but, feels this may be prostrate associated or scrotal. Advised Pt to returnto [facility] Ed for further evaluation. Pt agreed with [...] Description 08/10/2025 10:00 AM EST Clinical Support [facility] [address] [place] [address] Nicole Rubio, RN documented as of this encounter Visit Diagnoses Not on filedocumented in this encounter Care Teams Wedding Florist Relationship Specialty Start Date End Date Rik Bearden MD [address] [place] [address] PCP - General Internal Medicine 06/18/15 documented as of this encounter
--- OUTSIDE RECORDS SUMMARY | 2025-06-28 19:35 | XMS_ITS | Clinical Summary ---
Author Organization [facility] [place] [address] Care Team Providers Care Forge Shop Machine Repairer Name Role Phone Unavailable Primary Care Provider [...] of 3 - 19+ 3-dose series) 1999 HPV Vaccines (1 - 3-dose SCD M series) 2007 Cholesterol Screening (Lipid Panel) 08/09/2022 HIV Screening 08/09/2022 Hepatitis C Screening 08/09/2022 Social Influencers of Health Screening 08/09/2022 Depression Screening 09/06/2024 COVID-19 Vaccine ( - 2023-2 5 season) 2025 Influenza Vaccine (#1) 2025 RSV Immunization Adult Patie nts (1 - 1-dose 75+ series) 2055 HIB Vaccines Aged Out No longer eligi [...]
--- OUTSIDE RECORDS SUMMARY | 2025-06-28 19:35 | XMS_ITS | Encounter Summary ---
Author Organization [employer] Address [address] [facility] [address] [place] [address] Care Team Providers Care Library Attendant Name Role Phone Rik Bearden MD Primary Care Provide r Reason for Visit * Reason Comments Med Refill Encounter Details Date Type Department Care Team ([facility] st Contact Info) Description 03/26/2023 Refill [facility] [address] [place] [address] Rik Bearden MD [address] [place] [address] Heartburn Social History Tobacco Use Types Packs/Day [...] Description 08/10/2025 10:00 AM EST Clinical Support [facility] [address] [place] [address] Nicole Rubio, JAMSHID documented as of this encounter Visit Diagnoses Diagnosis Heartburn documented in this encounter Care Teams Library Attendant Relationship Specialty Start Date End Date Rik Bearden MD [address] [place] [address] PCP - General Internal Medicine 06/18/15 documented as of this encounter
--- OUTSIDE RECORDS SUMMARY | 2025-06-28 19:35 | XMS_ITS | Encounter Summary ---
Author Organization [employer] Address [address] [place] [id number] Care Team Providers Care Grain Oilseed Or Pasture Farm Manager Name Role Phone Rik Bearden MD Primary Care Provide r Reason for Visit * Reason Comments Med Refill Encounter Details Date Type Department Care Team ([facility] Contact Info) Description 05/02/2023 Refill [facility] [address] [place] [address] Sravanthi Summers, ANP [address] [place] [address] Constipation, unspecified constipation type Social History Tobacco [...] Department Care Team (Late Contact Info) Description 08/10/2025 10:00 AM EST Clinical Support [facility] [address] [place] [address] Joanne, Nicole, RN documented as of this encounter Visit Diagnoses Diagnosis Constipation, unspecified constipation type documented in this encounter Care Teams Grain Oilseed Or Pasture Farm Manager Relationship Specialty Start Date End Date Rik Bearden MD [address] [place] [address] PCP - General Internal Medicine 06/18/15 documented as of this encounter
--- OUTSIDE RECORDS SUMMARY | 2025-06-28 19:35 | XMS_ITS | Encounter Summary ---
Author Organization [employer] Address [address] [facility] [address] [place] [address] Care Team Providers Care Motivational Speaker Name Role Phone Rik Bearden MD Primary Care Provide r Reason for Visit * Reason Onset Date Comments Med Refill 11/01/2023 Encounter Details Date Type Department Care Team ([facility] st Contact Info) Description 11/01/2023 Telephone [facility] [address] [place] [address] Rik Bearden MD [address] [place] [address] Med Refill Social History Tobacco Use Types [...] MG SL film To be sent to: [facility]pharmacy [address] [place] [address] - [address] [place] [address] documented in this encounter Plan of Treatment Upcoming Encounters Date Type Department Care Team (Late st Contact Info) Description 08/10/2025 10:00 AM EST Clinical Support [facility] [address] [place] [address] Nicole Rubio, RN documented as of this encounter Visit Diagnoses Not on filedocumented in this encounter Care Teams Motivational Speaker Relationship Specialty Start Date End Date Rik Bearden MD [address] [place] [address] PCP - General Internal Medicine 06/18/15 documented as of this encounter
--- OUTSIDE RECORDS SUMMARY | 2025-06-28 19:35 | XMS_ITS | Clinical Summary ---
Author Organization [employer] Address [address] [place] [address] 7 [place] [address] Care Team Providers Care Cook Dinner Name Role Phone Rik Bearden MD Primary [...] 5 MG EC tablet 08/24/20 23 Active docusate sodium (Colace) 100 MG capsuleIndica [...] SL filmIndicatio ns:Opioid dependence in remission (CMS/HCC) ([facility]) Place 1 Film under the tongue Once per day. 28 Film 1 12/30/19 25 Active clotrimazole- betamethasone (Lotrisone) creamIndicati ons:Tinea cruris Apply topically 2 times daily. 45 g 01/10/20 25 Active sertraline (Zoloft) 25 MG tablet TAKE 1 TABLET (25 MG) BY MOUTH ONCE PER DAY. 90 tablet 3 02/16/20 25 Active hydrOXYzine HCl (Atarax) 25 MG tablet TAKE 1 TABLET BY MOUTH TWICE A DAY 180 tablet 04/10/20 25 Active Buprenorphine HCl-Naloxone HCl (Suboxone) 8-2 MG SL filmIndicatio ns:Opioid dependence in remission (CMS/HCC) ([facility]) Place 1 Film under the tongue Once per day. Do not start before June 15, 2025. 28 Film 2 06/15/20 25 025 Active Buprenorphine HCl-Naloxone HCl (Suboxone) 8-2 MG SL filmIndicatio ns:Opioid dependence in remission (CMS/HCC) ([facility]) Place 1 Film under the tongue Once per day. 28 Film 1 04/14/20 25 025 Discontinued(R eorder (will not trigger notification to Pharmacy)) Active Problems Problem Noted Date Diagnosed Date Crohn's disease of large intestine with complica tion 08/24/2024 Assessment & Plan (05/24/2025 2:18 PM EDT): Dr Toro Persaud GI suspects pt has Chron's disease, last seen 01/01/2025 Patient was started on Entyvio and Esomeprazole Repeat Pelvic US 03/14/2025 showed: Nonspecific 1.3 cm dominant lymph node, right inguinal. I discussed case with Radiologist via [facility] [facility] (Dr. Majano) who reviewed the US and CT abdomen from 08/24/2023. He mentioned that the Lymph nodes in US appeared benign but that he would recommend to repeat a CT Abdomen and Pelvis with contrast. Will order today Assessment & Plan (01/09/2025 10:35 AM EDT): [...] reviewed. Inguinal lymphadenopathy 2023 Assessment & Plan (05/24/2025 2:16 PM EDT): Initial Seen on US 2. Lymph nodes measuring 0.9 x 0.5 x 0.7 cm and 1.6 x 0.5 x 1.1 cm with echogenic jean are identified in the right inguinal region. Repeat US 03/14/2025 showed: Nonspecific 1.3 cm dominant lymph node, right inguinal. I discussed case with Radiologist who reviewed the US and CT abdomen from 08/24/2023. He mentioned that the Lymph nodes in US appeared benign but that he would recommend to repeat a CT Abdomen and Pelvis with contrast. Will order today Assessment & Plan (02/06/2025 10:13 AM EDT): Seen on US Last one: US pelvic limited IMPRESSION: 1. No discrete hernia identified in the area indicated by the patient in the right inguinal region. 2. Lymph nodes measuring 0.9 x 0.5 x 0.7 cm and 1.6 x 0.5 x 1.1 cm with echogenic jean are identified in the right inguinal region. Plan: Repeat Assessment & Plan (03/16/2024 12:58 PM EDT): [...] pain 04/22/2023 Transaminitis 03/30/2023 Assessment & Plan (05/24/2025 4:08 PM EDT): Patient with chronic persistent elevation of LFTs Hepatitis B and C Negative, Denies alcohol use Pt under the care of [facility], last seen 01/01/2025 Liver US 03/2024 showed:Hepatomegaly, 16.5 cm. Increased hepatic parenchymal heterogeneity and echogenicity could be associated with hepatocellular disease/hepatic steatosis and substantially limits visualization. Hypoechoic areas within the right hepatic lobe are characteristic of focal sparing within a fatty liver. Previously referred to [facility] for chronic elevation of LFTs and positive VICKIE to rule out autoimmune hepatitis. Appointment scheduled for 08/14/2024 . He no showed. Pt is now under the care of Dr Toro Persaud GI Assessment & Plan (01/09/2025 10:39 AM EDT): Patient with chronic persistent elevation of LFTs Hepatitis B and C Negative, Denies alcohol use Pt under the care of [facility], last seen 01/01/2025 Liver US 03/2024 showed:Hepatomegaly, 16.5 cm. Increased hepatic parenchymal heterogeneity and echogenicity could be associated with hepatocellular disease/hepatic steatosis and substantially limits visualization. Hypoechoic areas within the right hepatic lobe are characteristic of focal sparing within a fatty liver. Previously referred to [facility] for chronic elevation of LFTs [...] sparing within a fatty liver. 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 Evaluated by corporate communications specialist Dr Tristen Miller ( Last note [...] since c/o dyspnea and palpitations. Evaluated by corporate communications specialist Dr Tristen Miller ( Last note [...] since c/o dyspnea and palpitations. Evaluated by corporate communications specialist Dr Tristen Miller ( Last note [...] since c/o dyspnea and palpitations. Evaluated by corporate communications specialist Dr Tristen Miller ( Last note [...] Perineum pain, male 09/07/2022 Assessment & Plan (02/06/2025 10:38 AM EDT): Pt with intermittent c/o perineal pain Previously evaluated by colorectal ana Landaverde (2019 had anoscopy that showed both internal and external hemorrhoids ) Most recent imagin11/30/2023: ABDOMINAL AND PELVIC CT FINDINGS: Liver, gallbladder, biliary tract: Diffuse hypoattenuation of the liver parenchyma likely reflects hepatic steatosis. No focal hepatic lesion or intrahepatic biliary ductal dilatation. Pancreas: Unremarkable Spleen: Unremarkable Adrenal glands and kidneys: Unremarkable. No hydronephrosis or nephrolithiasis. Ureters and bladder: Unremarkable. Lymphovascular structures: Unremarkable. Bones: Unremarkable Pt c/o vague discomfort in his urethra, testicles and perineal area with intermittent burning and itching on his penile shaft On exam there was no palpable masses, no lymphadenopathy, no hernias. Previous work up has included CT pelvis, inguinal US, scrotal US and Urology evaluation. Pt already has a follow up with Urology Plan: Obtain HSV Cx and IGG. Repeat Inguinal U/S Previously showed inguinal lymphadenopathy Assessment & Plan (09/07/2022 3:09 PM EST): [...] here for a f/u seen at our [facility] with c/o acute on chronic low back pain Had an x-ray of his LOS spine 05/06/2022 that was read as unremarkable previously with c/o persistent low back pain. He was referred to PT with no good results. Initial work up included plain films of his LS spine that were unremarkable. He was referred to [facility], Previously there was evidence of muscle spasm, he was taking Naproxen with no good results, I added a muscle relaxant t Baclofen 10 mg po q 8 hrs prn. Pt states it did not help either. MRI of his LS spine 11/2018 was Normal. Patient was seen at the [facility] and they reviewed his MRI and recommended steroid injection/Pt for myofascial pain, pt declined back then. Today he is complaining of recurrent low back pain that radiates to both lower extremities Patient was seen at [facility], they recommended PT Assessment & Plan (09/08/2022 9:30 AM EST): Pt here for a f/u seen at our [facility] with c/o acute on chronic low [...] was Normal. Patient was seen at the [facility] and they reviewed his MRI and recommended steroid injection/Pt for myofascial pain, pt declined back then. Today he is complaining of recurrent low back pain that radiates to both lower extremities Plan: Will refer back to [facility] for evaluation Scrotal pain 08/11/2022 Assessment & [...] under the care of [facility]. He used to follow with them every [...] CT of his neck without contrast at [facility] ER on 07/17/2022 that showed no acute pathology and likely reactive lymh nodes. Prior to that he had a CT of the maxillofacial bones that showed rightward nasal septal deviation. Pt was referred to ENT for that Encounters Date Type Department Care Team Description 06/15/2025 9:00 AM EDT Clinical Support [address] [address] Nicole Rubio RN Uncomplicated opioid dependence (CMS/HCC) ([facility]) (Primary Dx) 06/15/2025 Travel 06/08/2025 Refill [facility] [address] [place] [phone] Nicole Rubio, RN Opioid dependence in remission (CMS/HCC) (HCC) 05/24/2025 2:00 PM EDT Office Visit [address] [address] Rik Bearden MD Inguinal lymphadenopathy (Primary Dx); Crohn's disease of large intestine with complication (CMS/HCC); Transaminitis 05/24/2025 Telephone [facility] [address] [place] [address] Rik Bearden MD 05/24/2025 Travel 05/23/2025 Telephone [facility] [address] [place], [place] [phone] Rik Bearden MD chart prep 04/21/2025 Orders Only GENERIC EXTERNAL DATA DEPARTMENT Provider, Generic External Data 04/20/2025 10:00 AM EDT Clinical Support [address] [address] Adarsh Lassiter RN Opioid type dependence, continuous ([facility]) 04/20/2025 Travel 04/13/2025 Refill [facility] [address] [place] [phone] Ethel Turner RN Opioid dependence in remission ([facility]) 04/12/2025 Orders Only GENERIC EXTERNAL DATA DEPARTMENT Provider, Generic External Data 04/09/[address] [address] Rik Bearden MD from Last 3 Months Immunizations Immunization Administration [...] smoke cigarettes but he uses the vapes 3% nicotene Alcohol Use Standard Drinks/Week Comments Never 0 [...] Sign Reading Time Taken Comments Blood Pressure 130/70 05/24/2025 2:12 PM EDT Pulse 66 05/24/2025 2:12 PM EDT Temperature 36 C (96.8 F) 05/24/2025 2:12 PM EDT Respiratory Rate 20 05/24/2025 2:12 PM EDT Oxygen Saturation 98% 05/24/2025 2:12 PM EDT Inhaled Oxygen Concentration - - Weight 78.9 kg (174 lb) 05/24/2025 2:12 PM EDT Height 167.6 cm (5' 6 ) 05/24/2025 2:12 PM EDT Body Mass Index 28.08 05/24/2025 2:12 PM EDT Plan of Treatment Upcoming Encounters Date Type Department Care Team (Late st Contact Info) Description 08/10/2025 10:00 AM EST Clinical Support [facility] [address] [place] [address] Nicole Rubio, RN Health Maintenance Due Date Last Done Comments Family Planning (PISQ) 1995 HPV Vaccines (1 - Male 3-dos e series) 1995 Hepatitis B Vaccines (3 of 3 - 19+ 3-dose series) 10/19/2024 08/24/2024, 03/16/2024 COVID-19 Vaccine (3 - 2024-2 6 season) 2025 06/26/2022, 05/18/2022 Influenza Vaccine (#1) 2025 Depression Monitoring 06/12/2025 12/11/2024 , 12/11/2024 Alcohol/Substance Use Screening 08/24/2025 08/24/2024 SDOH Screening 12/27/2025 12/27/2024 Disability Screening 01/09/2026 01/09/2025 Tobacco Screening 05/24/2026 05/24/2025 Lipid Panel 03/08/2029 03/08/2024, 08/13/2021 Zoster Vaccines [...] Years) and At-Risk Patients (6 to 49) Years Aged Out No longer eligible b ased [...] functioning is improved General On track( 025 9:48 AM EDT) No Nicole Rubio, RN Increase coping skills to promote long-term recovery and improve ability to perform daily activities General On track( 025 9:48 AM EDT) No Adarsh Lassiter, direct marketing analyst Procedure Name Priority Date/Time Associated Diagnosis Comments POCT HECTOR-14 URINE DRUG SCREEN Routine 06/15/2025 9:24 AM EDT Uncomplicated opioid dependence (CMS/HCC) (HCC) HIGH SENSITIVITY TROPONIN I Routine 04/21/2025 8:30 PM EDT HIGH SENSITIVITY TROPONIN I Routine 04/21/2025 6:04 PM EDT BASIC METABOLIC PANEL Routine 04/21/2025 6:04 PM EDT HEPATIC FUNCTION PANEL Routine 04/21/2025 6:04 PM EDT CBC WITH AUTO DIFFERENTIAL Routine 04/21/2025 6:04 PM EDT HIGH SENSITIVITY TROPONIN I Routine 04/12/2025 8:17 AM EDT HIGH SENSITIVITY TROPONIN I Routine 04/12/2025 6:13 AM EDT BASIC METABOLIC PANEL Routine 04/12/2025 6:13 AM EDT CBC WITH AUTO DIFFERENTIAL Routine 04/12/2025 6:13 AM EDT XR CHEST 2 VIEWS Routine 04/12/2025 5:24 AM EDT HEPATITIS PANEL, GENERAL Routine 03/08/2024 2:12 PM EDT Transaminitis LIPID PANEL, STANDARD Routine 03/08/2024 2:12 PM EDT Hypertriglyceridemi a HIV 1/2 ANTIGEN/ANTIBODY, FOURTH GENERATION W/RFL Routine 03/27/2022 10:14 AM EDT from Last 3 Months or Most Recently Relevant to Health Maintenance Results * (ABNORMAL) POCT HECTOR-14 Urine Drug Screen (06/15/2025 9:24 AM EDT) Pathologist [facility] THC Negative Negative Cocaine Screen, Urine Negative Negative Opiate Screen, Urine Negative Negative Methamphetamine Screen Urine Negative Negative Amphetamine Screen, Urine Negative Negative Benzodiazepines Screen, Urine Negative Negative Barbiturate Screen, Urine Negative Negative Methadone Screen, Urine Negative Negative Buprenophine Screen, Urine Positive(A) Negative TCA, Urine Negative Negative MDMA Urine Negative Negative ng/mL Oxycodone Screen, Urine Negative Negative Phencyclidine (PCP), Urine Negative Negative Fentanyl, Urine Negative Negative Urine Urine specimen obtained by clean catch procedure / Unknown 06/15/2025 9:24 AM EDT John Mantilla MD POINT OF CARE TEST ENTER/EDIT OR DERABLES Final Result * High Sensitivity Troponin I (04/21/2025 8:30 PM EDT) Only the most recent of4 resultswithin the time period is included. [facility] TROPONIN I HIGH SENSITIVITY 18.8 <3.5 - 35.0 ng/L [facility] Comment:The Gillespie high sens itivity Troponin-I results should beused in conjunction with other diagnostic information suchas ECG, clinical observations and information, and patientsymptoms to aid in the diagnosis of ME. 04/21/2025 8:30 PM EDT 04/21/2025 8:36 PM EDT us Generic External Data Provider LAB BLOOD ORDERAB LES Final Result [facility] [address] [place] [phone] * (ABNORMAL) CBC auto differential (04/21/2025 6:04 PM EDT) Only the most recent of2 resultswithin the time period is included. [facility] White Blood Count 5.9 4.8 - 10.8 X10*3/uL [facility] Red Blood Count 4.87 4.60 - 5.80 X10*6/uL [facility] Hemoglobin 14.2 14.0 - 18.0 g/dl [facility] Hematocrit 40.2(L) 42.0 - 52.0 % [facility] Mean Corpuscular Volume 82.5 80.0 - 98.0 fL [facility] Mean Corpuscular Hemoglobin 29.2 27.0 - 33.0 pg [facility] Mean Corpuscular HGB Conc 35.3 31.0 - 36.0 g/dl [facility] Red Cell Distribution Width 12.2 11.0 - 16.0 % [facility] Platelet Count 209 160 - 400 X10*3/uL [facility] Mean Platelet Volume 9.6 9.4 - 12.4 fL [facility] Neutrophils Percent Auto 56.0 45 - 73 % [facility] Imm Gran Pct Auto 0.5(H) 0.0 - 0.4 % [facility] Lymphocytes Percent Auto 31.6 20 - 40 % [facility] Monocytes Percent Auto 8.7 2 - 11 % [facility] Eosinophils Percent Auto 2.2 0 - 4 % [facility] Basophils Percent Auto 1.0 0 - 2 % [facility] NRBC Pct Auto 0.0 0.0 - 0.2 /100WBC [facility] Neutrophils Absolute Auto 3.3 2.0 - 8.3 x10*3/uL [facility] Imm Gran Abs Auto 0.03 0.00 - 0.03 X10*3/uL [facility] Lymphocytes Absolute Auto 1.9 1.2 - 4.9 X10*3/uL [facility] Monocytes Absolute Auto 0.5 0.1 - 1.2 X10*3/uL [facility] Eosinophils Absolute Auto 0.1 0.0 - 0.4 X10*3/uL [facility] Basophils Absolute Auto 0.1 0.0 - 0.2 X10*3/uL [facility] NRBC Abs Auto 0.000 0.0 - 0.012 X10*3/uL [facility] 04/21/2025 6:04 PM EDT 04/21/2025 6:11 PM EDT us Generic External Data Provider LAB BLOOD ORDERAB LES Final Result Performing Organization Address [facility] Co de Phone Number [facility] [address] [place] [phone] * (ABNORMAL) Hepatic Function Panel (04/21/2025 6:04 PM EDT) Bilirubin, Total 0.4 0.0 - 1.0 mg/dL [facility] Bilirubin, Direct 0.1 0.0 - 0.5 mg/dL [facility] Aspartate Amino Transferase 78(H) 5 - 37 U/L [facility] Alanine Aminotransferase 141(H) 0 - 40 U/L [facility] Total Protein 7.5 6.5 - 8.0 g/dL [facility] Albumin Level 4.3 3.5 - 5.0 g/dL [facility] Alkaline Phosphatase 66 39 - 117 U/L [facility] 04/21/2025 6:04 PM EDT 04/21/2025 6:11 PM EDT us Generic External Data Provider LAB BLOOD ORDERAB LES Final Result Performing Organization Address [facility] Co de Phone Number [facility] [address] [place] [phone] * Basic Metabolic Panel (04/21/2025 6:04 PM EDT) Only the most recent of2 resultswithin the time period is included. Sodium 142 135 - 145 mmol/L [facility] Potassium 5.0 3.3 - 5.1 mmol/L [facility] Chloride 106 96 - 108 mmol/L [facility] Carbon Dioxide 27 22 - 29 mmol/L [facility] Anion Gap 14 12 - 20 [facility] Urea Nitrogen (BUN) 12 9 - 16 mg/dL [facility] Creatinine, Serum 0.95 0.5 - 1.4 mg/dL [facility] Creatinine Clr Calc Pharmacy 98.2 [facility] Comment:eGFR (calculated fro m the MDRD study equation) and eCrCl(calculated from the Cockcroft-Gault equation) are based ondifferent parameters and may not yield comparable results.If eCrCl result is absurd, please check patient'sheight/weight. Estimated Glomerular Filt Rate >60 [facility] Comment:Chronic Kidney Disea se: Estimated GFR < 60 mL/min/1.91k7Lirnit Kidney Disease: Estimated GFR < 15 mL/min/1.73m2 Glucose 96 60 - 115 mg/dL [facility] Calcium 9.2 8.4 - 10.2 mg/dL [facility] 04/21/2025 6:04 PM EDT 04/21/2025 6:11 PM EDT us Generic External Data Provider LAB BLOOD ORDERAB LES Final Result [facility] [address] [place] [phone] * XR Chest 2 Views (04/12/2025 5:24 AM EDT) Anatomical Region Laterality Modality Chest Radiographic Peggy ging 04/12/2025 5:24 AM EDT Narrative 04/12/2025 8:01 AM EDT [address] [address] XRay Report Signed Patient: Cody Shepard MR#: [id number] : 1980 Acct:[id number] Age/Sex: 44 / M ADM Date: 04/12/25 Loc: HO.ED Attending Dr: Ordering Physician: Generic ED Physician Date of Service: 04/12/25 Procedure(s): XR chest 2V Accession Number(s): [id number] cc: Rik Flaherty MD; Generic ED Physician EXAMINATION: XR CHEST 2 VIEWS HISTORY: CP COMPARISON: Comparison is made with the prior examination dated 10/26/2024. FINDINGS: PA and lateral views of the chest are submitted. The lungs are expanded and clear. There is no pleural effusion, pneumothorax, or pulmonary vascular congestion. The heart is normal in size. The bones are intact. XR/XR chest 2V IMPRESSION: No acute cardiopulmonary abnormality. Electronically signed by: Shyam Lopez MD 04/12/2025 07:59 AM EDT RP Dictated By: Shyam Lopez MD Signed By: <Electronically signed by Shyam Lopez MD in OV> 04/12/25 0759 DD/ 3 TD/TT: 04/12/25621 Transfer Table Operator Helper: Procedure Note Donotuseinterpreter, Image - 04/12/[address] [address] XRay Report Signed Patient: Cody Shepard#: [id number] : 1980Acct:[id number] Age/Sex: 44 / MADM Date: 04/12/25 Loc: .ED Attending Dr: Ordering Physician: Generic ED Physician Date of Service: 04/12/25 Procedure(s): XR chest 2V Accession Number(s): [id number] cc: Rik Flaherty MD; Generic ED Physician EXAMINATION: XR CHEST 2 VIEWS HISTORY: CP COMPARISON: Comparison is made with the prior examination dated 10/26/2024. FINDINGS: PA and lateral views of the chest are submitted. The lungs are expanded and clear. There is no pleural effusion, pneumothorax, or pulmonary vascular congestion. The heart is normal in size. The bones are intact. XR/XR chest 2V IMPRESSION: No acute cardiopulmonary abnormality. Electronically signed by: Shyam Lopez MD 04/12/2025 07:59 AM EDT RP Dictated By: Shyam Lopez MD Signed By: <Electronically signed by Shyam Lopez MD in OV> 04/12/25 0759 DD/ 3 TD/TT: 04/12/25621 Transfer Table Operator Helper: [facility] External Provider IMG XR PROCEDURES Final Result * Hepatitis A,B,C Profile (03/08/2024 2:12 PM EDT) Hepatitis A IgM NON-REAC TIVE Nonreactive [facility] Comment:For additional infor mation, please refer tohttp://Verold/faq/VLT810(This link is being provided for informational/educational purposes only.)THIS TEST PERFORMED AT:[facility] [address] [phone] DIRECTOR: VIDYA ADAMS MD ~Hepatitis B Surface Antibody [facility]AC TIVE [facility] Comment:THIS TEST PERFORMED AT:[facility] [address] [phone] DIRECTOR: VIDYA ADAMS MD Hepatitis B Core Antibody NON-REAC TIVE [facility] Comment:For additional infor mation, please refer tohttp://Verold/faq/WDS985(This link is being provided for informational/educational purposes only.)THIS TEST PERFORMED AT:[facility] [address] [phone] DIRECTOR: VIDYA ADAMS MD Hepatitis C Antibody NON-REAC TIVE [facility] Comment:HCV antibody was non -reactive. There is no laboratoryevidence of HCV infection.In most cases, no further action is required. However,if recent HCV exposure is suspected, a test for HCV RNA(test code 14090) is suggested.For additional information, please refer [email or web address].Crave.com/faq/QYR442(This link is being provided for informational/educational purposes only.)THIS TEST PERFORMED AT:[facility] [address] [phone] DIRECTOR: VIDYA ADAMS MD Hepatitis B Surface Ag NON-REAC TIVE Negative [facility] Comment:REFERENCE RANGE: NON -REACTIVEFor additional information, please refer tohttp://education.Crave.com/faq/WJB881(This link is being provided for informational/educational purposes only.)THIS TEST PERFORMED AT:[facility] [address] [phone] DIRECTOR: VIDYA ADAMS MD Blood Venous blood specimen / Unknown 03/08/2024 2:12 PM EDT 03/08/2024 3:59 PM EDT Rik Bates MD LAB BLOOD ORDERABLES Final Result [facility] [address] [place] [phone] * (ABNORMAL) Lipid Panel, Standard (03/08/2024 2:12 PM EDT) Triglycerides 240(H) <150 mg/dL [facility] Comment:Desirable Triglyceri de: less than [...] 190 mg/dL HDL Cholesterol 35(L) >40 mg/dL [facility] Comment:Desirable HDL: great er than 40 mg/dL Note: This HDL assay may give artificially low results in patients with liver disease. Blood Venous blood specimen / Unknown 03/08/2024 2:12 PM EDT 03/08/2024 3:59 PM EDT us Rik Bates MD LAB BLOOD ORDERABLES Final Result [facility] [address] [place] [phone] * HIV 1/2 ANTIGEN/ANTIBODY,FOURTH GENERATION W/RFL (03/27/2022 10:14 AM EDT) HIV-1/2 ANTIGEN AND ANTIBODIES, 4TH GENERATION W/ REFLEX NON-REACT MARAH NON-REACT MARAH [employer] [facility] Comment: HIV-1 antigen and HIV-1/HIV-2 antibodies were not detected. There is no laboratory evidence of HIV infection. PLEASE NOTE: This information has been disclosed to you from records whose confidentiality may be protected by state law. If your state requires such protection, then the state law prohibits you from making any further disclosure of the information without the specific written consent of the person to whom it pertains, or as otherwise permitted by law. A general authorization for the release of medical or other information is NOT sufficient for this purpose. For additional information please refer to http://education.Lightspeed.Stockpulse/faq/QKK219 (This link is being provided for informational/ educational purposes only.) The performance of this assay has not been clinically validated in patients less than 2 years old. 03/27/2022 10:1 4 AM EDT us Merritt Germain MD LAB BLOOD ORDERABLES Final Res ult [facility] [address] from Last 3 Months or Most Recently Relevant to Health Maintenance Insurance [employer] < 65 [place]HI [id number] Care Teams Cook Dinner Relationship Specialty Start Date End Date Rik Bearden MD [address] [place] [id number] PCP - General Internal Medicine 06/18/15
--- OUTSIDE RECORDS SUMMARY | 2025-06-28 19:35 | XMS_ITS | Encounter Summary ---
Author Organization [employer] Address [address] [place] [address] [address] [address] Care Team Providers Care Slag Dumper Name Role Phone Rik Bearden MD Primary Care Provide r Reason for Visit * Reason Onset Date Comments Triage 12/28/2022 Encounter Details Date Type Department Care Team ([facility] st Contact Info) Description 12/28/2022 Telephone [facility] MEDICINE [address] [place] [address] Rik Bearden MD [address] [place] [address] Triage Social History Tobacco Use Types Packs/Day [...] call Pt reports being seen in [facility] 12[place]25 for pain under arm /rib area [...] report ED visit on 12/25/22 at [facility]. Seen for . Patient advised will forward to team nurse for follow up. Patient still has pain around rib area (stabbing pain) and sore throat. documented in this encounter Plan of Treatment Upcoming Encounters Date Type Department Care Team (Late st Contact Info) Description 08/10/2025 10:00 AM EST Clinical Support [address] [address] Nicole Rubio, JAMSHID documented as of this encounter Visit Diagnoses Diagnosis Uncomplicated opioid dependence (CMS/HCC) (HCC) documented in this encounter Care Teams Slag Dumper Relationship Specialty Start Date End Date Rik Bearden MD [address] [place] [address] PCP - General Internal Medicine 06/18/15 documented as of this encounter
--- OUTSIDE RECORDS SUMMARY | 2025-06-28 19:35 | XMS_ITS | Encounter Summary ---
Author Organization [employer] Address [address] [facility] 7 [place] [address] Care Team Providers Care Cmm Inspector Name Role Phone Rik Bearden MD Primary Care Provide r Reason for Visit * Reason Comments Med Refill Encounter Details Date Type Department Care Team ([facility] st Contact Info) Description 09/19/2023 Refill [facility] MEDICINE [address] [place] [address] Merritt Germain MD [address] [place] [address] Uncomplicated opioid dependence (CMS/HCC) Social History Tobacco [...] Description 08/10/2025 10:00 AM EST Clinical Support [facility] MEDICINE [address] [place] [address] Nicole Rubio RN documented as of this encounter Visit Diagnoses Diagnosis Uncomplicated opioid dependence (CMS/HCC) (HCC) documented in this encounter Care Teams Cmm Inspector Relationship Specialty Start Date End Date Rik Bearden MD [address] [place] [address] PCP - General Internal Medicine 06/18/15 documented as of this encounter
--- OUTSIDE RECORDS SUMMARY | 2025-06-28 19:35 | XMS_ITS | Encounter Summary ---
Author Organization [employer] Address [address] [facility] 7 [place] [address] Care Team Providers Care Hall Manager Name Role Phone Rik Bearden MD Primary Care Provide r Reason for Visit * Reason Comments Med Refill Encounter Details Date Type Department Care Team ([facility] st Contact Info) Description 04/30/[address] [facility] MEDICINE [address] [place] [address] Rik Bearden MD [address] [place] [address] Other tobacco product nicotine dependence, uncomplicated Social [...] 10:00 AM EST Clinical Support [facility] MEDICINE [address] [place] [address] Nicole Rubio, JAMSHID documented as of this encounter Visit Diagnoses Diagnosis Other tobacco product nicotine dependence, uncomplicated documented in this encounter Additional Health Concerns Assessment Noted Time PHQ-9 Depression Total Score: 21 024 2:22 PM EDT documented as of this encounter Care Teams Hall Manager Relationship Specialty Start Date End Date Rik Bearden MD [address] [place] [address] PCP - General Internal Medicine 06/18/15 documented as of this encounter
--- OUTSIDE RECORDS SUMMARY | 2025-06-28 19:35 | XMS_ITS | Encounter Summary ---
Author Organization [employer] Address [address] [facility] 7 [place] [address] Care Team Providers Care Casing Splitter Name Role Phone iRk Bearden MD Primary Care Provide r Reason for Visit * Reason Comments Med Change Request Encounter Details Date Type Department Care Team ([facility] st Contact Info) Description 10/01/2024 Refill [facility] MEDICINE [address] [place] [address] Rik Bearden MD [address] [place] [address] Social History Tobacco Use Types Packs/Day Years [...] Description 08/10/2025 10:00 AM EST Clinical Support [facility] MEDICINE [address] [place] [address] Nicole Rubio RN documented as of this encounter Visit Diagnoses Not on filedocumented in this encounter Additional Health Concerns Assessment Noted Time PHQ-9 Depression Total Score: 14 024 1:11 PM EST documented as of this encounter Care Teams Casing Splitter Relationship Specialty Start Date End Date Rik Bearden MD [address] [place] [address] PCP - General Internal Medicine 06/18/15 documented as of this encounter
--- OUTSIDE RECORDS SUMMARY | 2025-06-28 19:35 | XMS_ITS | Encounter Summary ---
Author Organization [employer] Address [address] [place] [address] [address] [address] Care Team Providers Care Blood Bank Laboratory Professional Name Role Phone Rik Bearden MD Primary Care Provide r Reason for Visit * Reason Onset Date Comments Nurse Triage 04/12/2023 Encounter Details Date Type Department Care Team ([facility] st Contact Info) Description 04/12/2023 Telephone [facility] MEDICINE [address] [place] [address] Rik Bearden MD [address] [place] [address] Nurse Triage Social History Tobacco Use Types [...] accepted this outcome Please contact pt at [phone] (Turkish) documented in this encounter Plan of Treatment Upcoming Encounters Date Type Department Care Team (Late st Contact Info) Description 08/10/2025 10:00 AM EST Clinical Support [facility] MEDICINE [address] [place] [address] Nicole Rubio, RN documented as of this encounter Visit Diagnoses Not on filedocumented in this encounter Care Teams Blood Bank Laboratory Professional Relationship Specialty Start Date End Date Rik Bearden MD [address] [place] [address] PCP - General Internal Medicine 06/18/15 documented as of this encounter
--- OUTSIDE RECORDS SUMMARY | 2025-06-28 19:35 | XMS_ITS | Encounter Summary ---
Author Organization [employer] Address [address] [facility] [address] [place] [address] Care Team Providers Care Learning Support Services Director Name Role Phone Rik Bearden MD Primary Care Provide r Reason for Visit * Reason Comments Med Change Request Encounter Details Date Type Department Care Team ([facility] st Contact Info) Description 08/29/2023 Refill [facility] [address] [place] [address] Sravanthi Summers ANP [address] [place] [address] Constipation, unspecified constipation type Social History Tobacco [...] Description 08/10/2025 10:00 AM EST Clinical Support [facility] MEDICINE [address] [place] [address] Nicole Rubio RN documented as of this encounter Visit Diagnoses Diagnosis Constipation, unspecified constipation type documented in this encounter Care Teams Learning Support Services Director Relationship Specialty Start Date End Date Rik Bearden MD [address] [place] [id number] PCP - General Internal Medicine 06/18/15 documented as of this encounter
--- OUTSIDE RECORDS SUMMARY | 2025-06-28 19:35 | XMS_ITS | Encounter Summary ---
Author Organization [email or web address] Address [address] [place] [address] Care Team Providers Care Window Shade Estimator Name Role Phone Rik Bearden MD Primary Care Provide r Reason for Visit * Reason Comments Med Change Request Encounter Details Date Type Department Care Team ([facility] st Contact Info) Description 02/06/2025 Refill [facility] MEDICINE [address] [place] [address] Asha Lara MD [address] [place] [address] Social History Tobacco Use Types Packs/Day Years [...] Description 08/10/2025 10:00 AM EST Clinical Support [facility] MEDICINE [address] [place] [address] Nicole Rubio, RN documented as of this encounter Goals Goal Patient Goal Type Associated Problems Recent Progress Patient-Stated? Author Decrease the frequency of unwanted emotions so that daily functioning is improved General On track( 025 9:48 AM EDT) No Nicole Rubio, RN documented as of this encounter Visit Diagnoses Not on filedocumented in this encounter Additional Health Concerns Assessment Noted Time PHQ-9 Depression Total Score: 14 025 12:55 PM EDT documented as of this encounter Care Teams Window Shade Estimator Relationship Specialty Start Date End Date Rik Bearden MD [address] [place] [address] PCP - General Internal Medicine 06/18/15 documented as of this encounter
== END 2025-06-28 16:51 | disposition left against medical advice (07) ==
PROVIDERS: Emergency Provider Emergency Medicine; PCP Internal Medicine
DX: M54.50 Low back pain, unspecified (principal)
CPT/HCPCS: 99281